=== PATIENT | female | born 1965 | race Caucasian/White ===

== ENCOUNTER 2019-12-06 18:48 | Emergency (ER) | payer MEDICARE, MEDICAID, SELFPAY ==
[2019-12-06 18:56] VITALS: BP 149/89; PULSE 75; RESP 20; TEMP 36.7; O2SAT 100
--- NOTE | 2019-12-06 18:58 | ED.URI ---
HPI - URI/Sore Throat General Chief Complaint: Upper Respiratory Infection Stated Complaint: burning on tongue/throat Time Seen by Provider: 12/06/19 18:58 Source: patient and RN notes reviewed History of Present Illness HPI Narrative: Patient is a 54-year-old female who presents the urgent care with complaints of oral thrush. Patient states that the white patches on the tip of the tongue started approximately 2 days ago. Patient states that she has had issues with thrush for several months with her inhaled steroids. Patient states that she tries to switch out her toothbrush as well as wipe her mouth out after the use, but it does not seem to help. Patient also states that she does take a probiotic. Reports of being treated approximately 3 weeks ago with the oral pills, which seems to not help as well . Patient currently denies any difficulty swallowing. No other acute complaints. No acute distress noted. Patient read the plan of care. Related Data Home Medications Medication Instructions Recorded Confirmed atorvastatin 40 mg PO DAILY 12/06/19 12/06/19 carvedilol 12.5 mg PO DAILY 12/06/19 12/06/19 clonidine HCl 0.2 mg PO DAILY 12/06/19 12/06/19 cyclobenzaprine 10 mg PO DIRECTED 12/06/19 12/06/19 duloxetine 30 mg PO DAILY 12/06/19 12/06/19 duloxetine 60 mg PO DAILY 12/06/19 12/06/19 levothyroxine 150 mcg PO DAILY 12/06/19 12/06/19 lisinopril 5 mg PO DAILY 12/06/19 12/06/19 meloxicam 15 mg PO DAILY 12/06/19 12/06/19 mirabegron [Myrbetriq] 25 mg PO DAILY 12/06/19 12/06/19 omeprazole 20 mg PO DAILY 12/06/19 12/06/19 oxybutynin chloride 5 mg PO DAILY 12/06/19 12/06/19 spironolactone 25 mg PO DAILY 12/06/19 12/06/19 zolpidem 5 mg PO DAILY 12/06/19 12/06/19 Allergies Allergy/AdvReac Type Severity Reaction Status Date / Time adhesive Allergy Unknown BLISTERS Verified 12/06/19 18:52 Review of Systems Review of Systems: Narrative: CONSTITUTIONAL: Denies fever, chills, or sweats. EYES: Denies visual changes, redness, or discharge. ENT: Reports of sore tongue and sore throat with white patches CARDIOVASCULAR: Denies chest pain, palpitations, or edema. RESPIRATORY: Denies cough or dyspnea. GASTROINTESTINAL: Denies abdominal pain, nausea, vomiting, or diarrhea. GENITOURINARY: Denies dysuria or hematuria. SKIN: Denies rash or itching. MUSCULOSKELETAL: Denies back pain, joint pain, or myalgia. NEUROLOGIC: Denies headache, numbness, or weakness. All other systems reviewed are negative, except as documented in HPI. PMFSH Comments At the time of my signature, I reviewed and agree with the nursing past medical, surgical, social, and family history. There is no relevant family history pertinent to the patient complaint. Exam Narrative: Exam Narrative: GENERAL: This is a well-nourished, well-developed patient, in no apparent distress. HEAD: normocephalic, atraumatic. EYES: PERRL. Sclera clear/white. Vision is grossly intact. EARS: External ears normal NOSE: External nose normal with no obvious nasal discharge, nares without redness, no rhinorrhea. THROAT: Mucous membranes moist, notable white thrush noted to the tip, coating the cracked tongue as well as to the buccal aspects and inner lips NECK: Neck supple, non-tender without lymphadenopathy, masses or thyromegaly. SKIN: warm, intact with no suspicious lesions or rash, good texture and turgor. NEURO: awake, alert, and oriented to person, place and time. There were no obvious focal neurologic abnormalities. EXTREMITIES: No clubbing, cyanosis, or edema. Course Vital Signs Vital signs: Vital Signs Temperature 98.0 F 12/06/19 18:56 Pulse Rate 75 12/06/19 18:56 Respiratory Rate 20 12/06/19 18:56 Blood Pressure 149/89 H 12/06/19 18:56 Pulse Oximetry 100 12/06/19 18:56 Temperature 98.0 F 12/06/19 18:56 Pulse Rate 75 12/06/19 18:56 Respiratory Rate 20 12/06/19 18:56 Blood Pressure 149/89 H 12/06/19 18:56 Pulse Oximetry 100 12/06/19 18:56 Reviewed?p
== END 2019-12-06 19:15 | disposition home or self-care (01) ==
PROVIDERS: Emergency Provider Nurse Practitioner Family; PCP Physician Assistant
DX: B37.0 Candidal stomatitis (principal); E78.00 Pure hypercholesterolemia, unspecified; I10 Essential (primary) hypertension; J44.9 Chronic obstructive pulmonary disease, unspecified; Z87.891 Personal history of nicotine dependence; E03.9 Hypothyroidism, unspecified
CPT/HCPCS: 99213; G0463

== ENCOUNTER 2020-10-04 10:40 | Outpatient (CLI) | payer MEDICARE, MEDICAID, SELFPAY ==
--- NOTE | ~2020-10-04 | XR_ITS ---
XR lumbar spine 2-3V DATE: 10/04/2020 11:01 INDICATION: Bilateral sciatica, worse on the left TECHNIQUE: AP, lateral, coned lateral lumbosacral views COMPARISON: 11/25/2014 lumbar spine FINDINGS: There is mild levoscoliosis of the lumbar spine. Diffuse osteopenia. There is severe degenerative disc disease and mild grade 1 anterolisthesis at L4-5 due to degenerativ e change at the apophyseal joints. There is moderate degenerative disc disease at L5-S1 with mild retrolisthesis. No fracture or bone destruction is detected. The lumbar pedicles are intact. The sacroiliac joints appear normal. Surgical clips overlie right lower quadrant. IMPRESSION: Mild levoscoliosis Diffuse osteopenia Severe degenerative disc disease at L4-5 Degenerative changes of apophyseal joints with minimal grade 1 anterolisthesis at L4-5 Moderate degenerative disease at L5-S1 with mild retrolisthesis Reviewed, dictated and finalized at location B.
== END 2020-10-04 10:41 | disposition home or self-care (01) ==
PROVIDERS: PCP Physician Assistant; Visit Provider Physician Assistant
DX: M54.31 Sciatica, right side (principal); M47.817 Spondylosis without myelopathy or radiculopathy, lumbosacral region; M85.88 Other specified disorders of bone density and structure, other site; M41.9 Scoliosis, unspecified
CPT/HCPCS: 72100

== ENCOUNTER 2021-06-14 06:52 | Emergency (ER) | payer MEDICARE, MEDICAID, SELFPAY ==
--- NOTE | ~2021-06-14 | US_ITS ---
EXAMINATION: US venous doppler LE RT DATE: 06/14/2021 08:02 INDICATION: Right lower limb pain and induration TECHNIQUE: Grayscale ultrasound images without and with compression and Doppler ultrasound images of the right lower extremity veins were obtained. COMPARISON: None. FINDINGS: The visualized portions of right common femoral vein, profunda (deep) femoral vein, femoral vein, pop liteal vein, peroneal trunk, posterior tibial veins, peroneal veins, gastrocnemius vein and greater s aphenous vein outflow are patent. IMPRESSION: 1. No deep venous thrombosis in the right lower limb. Reviewed, dictated and finalized at location A. NESS SUPPORT LIAISON
[2021-06-14 07:00] VITALS: BP 149/89; PULSE 68; RESP 16; TEMP 36.2; O2SAT 99
--- NOTE | 2021-06-14 07:08 | ED.EXTPRO ---
HPI - Extremity Problem General Chief complaint: Extremity Problem,Nontraumatic Stated complaint: R. leg swelling. Time Seen by Provider: 06/14/21 07:06 Source: patient Mode of arrival: ambulatory Limitations: no limitations History of Present Illness HPI Narrative: The patient is a 56-year-old female with a history of psoriasis presenting for evaluation of right leg pain. Patient reports worsening right lower extremity pain, swelling, redness over the past 48 hours. Patient reports swelling has been present for approximately 4 days. Initially began as a small knot in her right calf. Patient denies any weakness or numbness. She does report pain with movement but has been ambulatory. She denies history of coagulopathy. Patient did have a recent outpatient surgery on her left lower extremity to remove some varicose veins at an outpatient surgery center in [place], [place]. Most of her patient's specialists are in that area. Patient denies fever, chills, chest pain, shortness of breath. No recent travel. No known history of Covid. Patient has been vaccinated with booster. Pt denies any recent falls or injuries. No known sores. Pt does have a history of skin infections with the psoriasis. She is only on topical therapy for her psoriasis, denies any immune-modulators. Related Data Home Medications Medication Instructions Recorded Confirmed atorvastatin 40 mg PO DAILY 12/06/19 12/06/19 carvedilol 12.5 mg PO DAILY 12/06/19 12/06/19 clonidine HCl 0.2 mg PO DAILY 12/06/19 12/06/19 cyclobenzaprine 10 mg PO DIRECTED 12/06/19 12/06/19 duloxetine 30 mg PO DAILY 12/06/19 12/06/19 duloxetine 60 mg PO DAILY 12/06/19 12/06/19 levothyroxine 150 mcg PO DAILY 12/06/19 12/06/19 lisinopril 5 mg PO DAILY 12/06/19 12/06/19 meloxicam 15 mg PO DAILY 12/06/19 12/06/19 mirabegron [Myrbetriq] 25 mg PO DAILY 12/06/19 12/06/19 omeprazole 20 mg PO DAILY 12/06/19 12/06/19 oxybutynin chloride 5 mg PO DAILY 12/06/19 12/06/19 spironolactone 25 mg PO DAILY 12/06/19 12/06/19 zolpidem 5 mg PO DAILY 12/06/19 12/06/19 Allergies Allergy/AdvReac Type Severity Reaction Status Date / Time adhesive Allergy Unknown BLISTERS Verified 06/14/21 07:06 Review of Systems Review of Systems: CONSTITUTIONAL: Denies fever, chills, or sweats. EYES: Denies visual changes, redness, or discharge. ENT: Denies rhinorrhea, congestion, sore throat, or otalgia. CARDIOVASCULAR: Denies chest pain, reports right lower extremity edema, redness, pain RESPIRATORY: Denies cough or dyspnea. GASTROINTESTINAL: Denies abdominal pain, nausea, vomiting, or diarrhea. GENITOURINARY: Denies dysuria or hematuria. SKIN: Denies rash or itching. MUSCULOSKELETAL: Denies back pain, joint pain, or myalgia. NEUROLOGIC: Denies headache, numbness, or weakness. [facility] Social History Social History (Updated 06/14/21 @ 07:37 by Leyda Motley MD) Smoking status: Current every day smoker Tobacco type: cigarettes Alcohol intake: never Substance use: never Other substance usage details: Pt denies but states she is on saboxone Gender identity (if verbalized by the patient): Female Exam Narrative: GENERAL: Awake, alert, conversant HEAD: Normocephalic, atraumatic. EYES: PERRLA and EOMI. ENT: Nares clear, no rhinorrhea or epistaxis. Mucous membranes moist. NECK: Supple. CHEST: No respiratory distress, breathing even and non labored HEART: Regular rate, sinus rhythm ABDOMEN:Non distended, non tender EXTREMITIES: Normal range of motion. Right lower extremity redness, mild induration about the right calf. No circumferential edema. DP pulse 2+. Intact distal sensation. Full extension, flexion at the right knee, right ankle without limitation. Nonpitting edema present. Left lower extremity is normal in appearance without redness, induration. SKIN: Warm, dry, no rash. NEURO:No focal deficits. Alert and oriented x3 Course Vital Signs Vital signs: Vital Signs Temperature 36.2 C L
[2021-06-14 07:58] LABS: Basophils Percent Auto 0.3 % (0.2-1.2); Eosinophils Absolute Auto 0.2 K/mm3 (0-0.3); Eosinophils Percent Auto 3.4 % (0-4.4); Hemoglobin 11.3 g/dL (12.0-15.0); Immature Granulocyte Absolute 0.02 K/mm3 (0.00-0.031); Immature Granulocyte Percent A 0.3 % (0-0.5); Lymphocytes Absolute Auto 1.93 K/mm3 (0.9-3.2); Mean Corpuscular HGB Conc 31.4 g/dl (32-36); Mean Corpuscular Hemoglobin 29.7 pg (26-34); Mean Corpuscular Volume 94.5 fl (80-100); Mean Platelet Volume 9.7 fl (7.4-10.4); Monocytes Absolute Auto 0.5 K/mm3 (0.1-0.6); Monocytes Percent Auto 7.8 % (2.6-8.5); Neutrophils Absolute Auto 3.7 K/mm3 (1.3-6.7); Neutrophils Percent Auto 58.2 % (45.5-73.1); Platelet Count Result 220 k/mm3 (150-375); Red Blood Count 3.81 M/mm3 (4.2-5.4); Red Cell Distribution Width 14.7 % (11.5-14.5); White Blood Count 6.4 K/mm3 (4.5-10.0)
[2021-06-14 08:06] LABS: Anion Gap 10 mmol/L (8-16); Blood Urea Nitrogen 14 mg/dL (7-17); Calcium 8.8 mg/dL (8.4-10.2); Carbon Dioxide 31 mmol/L (22-30); Chloride 101 mmol/L (98-107); Estimated CRCL calculation 72 ml/min; Estimated Glomerular Filt Rate > 60; Glucose 98 mg/dL (65-110); Potassium 3.3 mmol/L (3.4-5.0); Sodium 142 mmol/L (137-145)
== END 2021-06-14 08:20 | disposition home or self-care (01) ==
PROVIDERS: Emergency Provider Emergency Medicine; PCP Physician Assistant
DX: L03.115 Cellulitis of right lower limb (principal); L40.9 Psoriasis, unspecified; F17.210 Nicotine dependence, cigarettes, uncomplicated
CPT/HCPCS: 36415; 80048; 85025; 85610; 85730; 93971; 99284

== ENCOUNTER 2022-05-21 12:59 | Outpatient (CLI) | payer MEDICARE, MEDICAID, SELFPAY ==
--- NOTE | 2022-05-21 | ECHO_ITS ---
Patient Info Name: Roslyn Pardo Age: 57 years : 1965 Gender: Female Ht: 64 in Wt: 225 lbs BSA: 2.20 m2 HR: 79 bpm BP: 209 / 89 mmHg Heart Rhythm: Sinus Rhythm Exam Date: 05/21/2022 1:52 PM Exam Location: [facility] Pul[facility] Patient Status: Outpatient Admit Date: 05/21/2022 Staff Ordering Physician: Kenyatta, Janet Maciel PA-C Machine Brusher: Rian Thurman, ZEYAD, RT Attending Provider: Kenyatta, Janet Maciel PA-C Referring Physician: Kenyatta AVINA; Exam Type: CA echo doppler color flow Study Info Indications I10 - Essential (primary) hypertension Complete two-dimensional, color flow and Doppler transthoracic echocardiogram is performed. Strain analysis performed. Summary 1. Complete two-dimensional, color flow and Doppler transthoracic echocardiogram is performed. 2. Left ventricular chamber dimension is normal. 3. Left ventricular systolic function is normal, estimated at 60-65%. 4. Right ventricular chamber dimension is normal. 5. Left atrial chamber dimension is moderately enlarged. 6. There is mild mitral valve regurgitation. 7. Sinus rhythm with frequent PVCs during this exam. Left Ventricle Left ventricular chamber dimension is normal. Left ventricular systolic function is normal, estimated at 60-65%. The left ventricular diastolic function is grade I diastolic dysfunction. Right Ventricle Right ventricular chamber dimension is normal. Left Atria Left atrial chamber dimension is moderately enlarged. Right Atria Right atrial chamber dimension is normal. Aortic Valve The aortic valve is normal. Pulmonic Valve The pulmonic valve is not well visualized. Mitral Valve The mitral valve has normal leaflets. There is mild mitral valve regurgitation. Tricuspid Valve The tricuspid valve leaflets are normal. Pericardium/Pleural The pericardium appears normal. Aorta The aortic root size at the sinus of Valsalva is normal. Left Ventricular Outflow Tract Name Value Normal LVOT 2D LVOT Diameter 2.0 cm LVOT Doppler LVOT Peak Gradient 2 mmHg LVOT Mean Gradient 1 mmHg LVOT VTI 29 cm LVOT VTI/AV VTI Ratio 0.7 LVOT Stroke Volume 88 ml LVOT CO 1.4 l/min LVOT CI 0.6 l/min/m2 Mitral Valve Name Value Normal MV Doppler MV Peak Gradient 1 mmHg MV Mean Gradient 0 mmHg MV Decel [place] 667 cm/s2 MV PHT 49 ms MV Area (PHT) 4.5 cm2 4.0-5.0 MV Area (Cont Eq VTI) 6.7 cm2 MV Regurgitation Doppler
== END 2022-05-21 13:00 | disposition home or self-care (01) ==
LOC: ANHCARD 13:01
PROVIDERS: PCP Physician Assistant; Visit Provider Physician Assistant
DX: I49.5 Sick sinus syndrome (principal); I34.0 Nonrheumatic mitral (valve) insufficiency
CPT/HCPCS: 93306

== ENCOUNTER 2022-06-25 22:29 | Emergency (ER) | payer MEDICARE, MEDICAID, SELFPAY ==
[2022-06-25 22:27] VITALS: PULSE 103; RESP 17; TEMP 37.2; O2SAT 99
--- NOTE | 2022-06-25 22:42 | ECG_ITS ---
Measurements Intervals [place] Rate: 91 P: 56 NC: 134 QRS: 44 QRSD: 96 T: 49 QT: 393 QTc: 484 Interpretive Statements SINUS RHYTHM WITH FREQUENT VENTRICULAR PREMATURE COMPLEXES IN A BIGEMINAL PATTERN NONSPECIFIC ST & T-WAVE ABNORMALITY ABNORMAL RHYTHM ECG COMPARED TO ECG 04/02/2019 17:09:24 SINUS RHYTHM NOW PRESENT T-WAVE ABNORMALITY NOW PRESENT Electronically Signed On 06-26-2022 16:20:19 [employer]OTHERMAL HEAT PUMP MACHINIST by Indira Freeman M.D.
[2022-06-25 22:46] VITALS: BP 172/127
[2022-06-25 23:04] VITALS: BP 158/85; PULSE 88; RESP 19; O2SAT 98
[2022-06-25 23:05] LABS: Basophils Percent Auto 0.3 % (0.2-1.2); Eosinophils Absolute Auto 0.2 K/mm3 (0-0.3); Eosinophils Percent Auto 2.4 % (0-4.4); Hematocrit 39.3 % (37.0-47.0); Immature Granulocyte Absolute 0.02 K/mm3 (0.00-0.031); Immature Granulocyte Percent A 0.3 % (0-0.5); Lymphocytes Absolute Auto 2.74 K/mm3 (0.9-3.2); Lymphocytes Percent Auto 39.5 % (18.3-44.2); Mean Corpuscular HGB Conc 33.1 g/dl (32-36); Mean Corpuscular Hemoglobin 31.1 pg (26-34); Mean Platelet Volume 10.4 fl (7.4-10.4); Monocytes Absolute Auto 0.6 K/mm3 (0.1-0.6); Monocytes Percent Auto 8.1 % (2.6-8.5); Neutrophils Absolute Auto 3.4 K/mm3 (1.3-6.7); Neutrophils Percent Auto 49.4 % (45.5-73.1); Platelet Count Result 191 k/mm3 (150-375); Red Blood Count 4.18 M/mm3 (4.2-5.4); White Blood Count 6.9 K/mm3 (4.5-10.0)
[2022-06-25 23:21] LABS: Alanine Aminotransferase 19 U/L (6-35); Albumin Level 4.5 g/dL (3.5-5.1); Alkaline Phosphatase 95 U/L (38-126); Anion Gap 6 mmol/L (8-16); Aspartate Amino Transferase 28 U/L (14-36); Bilirubin,Total 0.5 mg/dL (0.2-1.3); Blood Urea Nitrogen 12 mg/dL (7-17); Calcium 9.2 mg/dL (8.4-10.2); Carbon Dioxide 37 mmol/L (22-30); Chloride 94 mmol/L (98-107); Estimated CRCL calculation 63 ml/min; Estimated Glomerular Filt Rate 57; Glucose 92 mg/dL (65-110); Potassium 2.6 mmol/L (3.4-5.0); Sodium 137 mmol/L (137-145)
[2022-06-26 00:12] VITALS: PULSE 92; RESP 14; O2SAT 96
--- NOTE | 2022-06-26 00:30 | ED.GENADULT ---
HPI - General Adult General Chief complaint: Syncope Stated complaint: SYNCOPAL EPISODE History of Present Illness HPI narrative: this is a 57-year-old female presenting ED with chief complaint of possible syncope. The patient says that this evening her son woke her up from sleep and she was confused. She then developed shortness of breath, chest tightness and urinary incontinence. Patient says there is significant anxiety during this event. She has a history of anxiety attacks in the past. She said this feels similar. Patient says that currently she feels not right. She is denying fever, chills, chest pain, difficulty breathing, abdominal pain. She has had some increased urinary urgency. Related Data Home Medications Medication Instructions Recorded Confirmed atorvastatin 40 mg tablet 40 mg PO DAILY 12/06/19 12/06/19 carvedilol 12.5 mg tablet 12.5 mg PO DAILY 12/06/19 12/06/19 clonidine HCl 0.2 mg tablet 0.2 mg PO DAILY 12/06/19 12/06/19 cyclobenzaprine 10 mg tablet 10 mg PO DIRECTED 12/06/19 12/06/19 duloxetine 30 mg capsule,delayed 30 mg PO DAILY 12/06/19 12/06/19 release duloxetine 60 mg capsule,delayed 60 mg PO DAILY 12/06/19 12/06/19 release levothyroxine 150 mcg tablet 150 mcg PO DAILY 12/06/19 12/06/19 lisinopril 5 mg tablet 5 mg PO DAILY 12/06/19 12/06/19 meloxicam 15 mg tablet 15 mg PO DAILY 12/06/19 12/06/19 mirabegron 25 mg tablet,extended 25 mg PO DAILY 12/06/19 12/06/19 release 24 hr (Myrbetriq) omeprazole 20 mg capsule,delayed 20 mg PO DAILY 12/06/19 12/06/19 release oxybutynin chloride 5 mg 5 mg PO DAILY 12/06/19 12/06/19 tablet,extended release 24 hr spironolactone 25 mg tablet 25 mg PO DAILY 12/06/19 12/06/19 zolpidem 5 mg tablet 5 mg PO DAILY 12/06/19 12/06/19 Allergies Allergy/AdvReac Type Severity Reaction Status Date / Time adhesive Allergy Unknown BLISTERS Verified 04/04/22 11:24 methotrexate Allergy Rash Verified 06/26/22 00:39 PMFSH Social History Social History (System 04/04/22 @ 11:24 by Ladi Cabrera) Smoking status: Current every day smoker Tobacco type: cigarettes Alcohol intake: never Substance use: never Other substance usage details: Pt denies but states she is on saboxone Gender identity (if verbalized by the patient): Female Course Vital Signs Vital signs: Vital Signs Temperature 98.9 F 06/25/22 22:27 Pulse Rate 103 H 06/25/22 22:27 Respiratory Rate 17 06/25/22 22:27 Pulse Oximetry 99 06/25/22 22:27 Oxygen Delivery Room Air 06/25/22 22:27 Temperature 98.9 F 06/25/22 22:27 Pulse Rate 82 06/26/22 06:00 Respiratory Rate 16 06/26/22 06:00 Blood Pressure 150/84 H 06/26/22 06:00 Pulse Oximetry 94 06/26/22 06:00 Oxygen Delivery Room Air 06/25/22 22:27 Medical Decision Making [facility] Narrative Medical decision making narrative: This is a 57-year-old female presenting to the ED after brief episode of confusion and anxiety. Lab work, EKG and chest x-ray were ordered. Patient was given Ativan for anxiety. EKG interpretation: Rhythm [sinus], Rate 82, [place] -[normal], [place] -[normal], QRS [narrow], QTC [normal], T waves -[negative for concerning inversions], ST Segments - [Negative for concerning elevations] Final interpretations: normal sinus rhythm with PVCs in a bigeminy pattern. Laboratory studies were significant for hypokalemia at 2.6. This will be repleted orally and via the IV. Additionally her magnesium will be repleted. Urinalysis was negative for infection. After potassium repletion her it this BMP was repeated her potassium is now 3.2. EKG was repeated and was unchanged. Patient was monitored in ED for 8 hours. She had no recurrence of her event. Patient feels better and would like to go home. Patient's vital signs are stable and she is well appearing. 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 This time patient will be discharged. V
[2022-06-26 00:37] VITALS: BP 165/85; PULSE 93; RESP 16; O2SAT 95
[2022-06-26 00:37] LABS: Magnesium 1.4 mg/dL (1.6-2.3)
[2022-06-26] MEDS: POTASSIUM CHLORIDE 20 MEQ TABLET 80 MEQ PO (00:38)
[2022-06-26] MEDS: LORazepam (*CRX) 0.5 MG TABLET PO (00:38)
[2022-06-26] MEDS: MAGNESIUM SULF 2 GM/WATER 50ML 2 GM/50 ML BAG IVPB (00:40)
--- NOTE | 2022-06-26 01:08 | PC.NURSE ---
Updated pts family, Adan (PH [phone]), per pt request.
[2022-06-26 01:18] LABS: Appearance Urine Clear (Clear); Bilirubin Urine Negative (Negative); Blood Urine Negative (Negative); Glucose Urine UA Negative (Negative); Ketones Urine Negative (Negative); Leukocyte Esterase Ur Negative LEU/UL (Negative); Nitrate Urine Negative (Negative); Protein Urine 1+ mg/dL (Negative); Urobilinogen Urine 0.2 mg/dL (<2.0)
[2022-06-26 01:29] LABS: Add Urine Microscopic? YES; Color Urine Light Yellow (Yellow); RBC Urine 0-2 /hpf (0-2); Squamous Epithelial Cell Urine Rare /hpf (Few); WBC Urine 0-3 /hpf
[2022-06-26] MEDS: SODIUM CHLORIDE 0.9% IV 1,000 ML 999 ML IV CONT (01:46)
[2022-06-26] MEDS: KCL 40 MEQ/WATER 100 ML 100 ML 25 ML IVPB (01:47)
[2022-06-26 02:09] VITALS: BP 169/80; PULSE 93; RESP 19; O2SAT 96
[2022-06-26 03:42] VITALS: BP 160/77; PULSE 82; RESP 13; O2SAT 94
--- NOTE | 2022-06-26 03:42 | ECG_ITS ---
Measurements Intervals [place] Rate: 82 P: -29 CT: 115 QRS: 74 QRSD: 87 T: 77 QT: 356 QTc: 417 Interpretive Statements SINUS RHYTHM WITH SHORT CT INTERVAL WITH FREQUENT VENTRICULAR PREMATURE COMPLEXES IN A BIGEMINAL PATTERN NONSPECIFIC T-WAVE ABNORMALITY ABNORMAL RHYTHM ECG COMPARED TO ECG 06/25/2022 22:50:25 NO SIGNIFICANT CHANGES Electronically Signed On 06-26-2022 16:26:48 K[employer]ITTED GOODS SHAPER by Indira Freeman M.D.
[2022-06-26 05:08] VITALS: PULSE 85; RESP 24; O2SAT 95
[2022-06-26 06:00] VITALS: BP 150/84; PULSE 82; RESP 16; O2SAT 94
[2022-06-26 06:34] LABS: Anion Gap 5 mmol/L (8-16); Blood Urea Nitrogen 11 mg/dL (7-17); Calcium 8.2 mg/dL (8.4-10.2); Carbon Dioxide 34 mmol/L (22-30); Chloride 104 mmol/L (98-107); Estimated CRCL calculation 70 ml/min; Estimated Glomerular Filt Rate > 60; Glucose 101 mg/dL (65-110); Potassium 3.2 mmol/L (3.4-5.0); Sodium 143 mmol/L (137-145)
[2022-06-26] MEDS: POTASSIUM CHLORIDE 20 MEQ TABLET 40 MEQ PO (07:03)
== END 2022-06-26 07:18 | disposition home or self-care (01) ==
PROVIDERS: Emergency Provider Emergency Medicine; PCP Physician Assistant
DX: F41.9 Anxiety disorder, unspecified (principal); E87.6 Hypokalemia; F17.210 Nicotine dependence, cigarettes, uncomplicated; R94.31 Abnormal electrocardiogram [ECG] [EKG]; I49.3 Ventricular premature depolarization
CPT/HCPCS: 36415; 80048; 80053; 81001; 83735; 85025; 93005; 96365; 96366; 96367; 99284; A9270; J3475; J3480; J7030

== ENCOUNTER 2022-06-27 10:54 | Emergency (ER) | payer MEDICARE, MEDICAID, SELFPAY ==
--- NOTE | ~2022-06-27 | XR_ITS ---
EXAMINATION: XR chest ET placement DATE: 06/27/2022 12:29 INDICATION: Endotracheal tube adjustment. TECHNIQUE: A single frontal view of the chest was obtained. COMPARISON: Chest single view at 11:07 AM, CT abdomen 04/18/2015 FINDINGS: There is an interstitial pattern in the lungs, consistent with mild pulmonary edema. No ple ural effusion or pneumothorax. Cardiomegaly is noted. The endotracheal tube tip is 3.4 cm above the c katherine. IMPRESSION: 1. Mild pulmonary edema. 2. Cardiomegaly. Reviewed, dictated and finalized at location A. ATTENDANT
--- NOTE | ~2022-06-27 | XR_ITS ---
EXAMINATION: XR chest ET placement INDICATION: Endotracheal tube placement, cardiac arrest TECHNIQUE: Portable AP chest at 1110, 1113, and 1115 hours COMPARISON: 04/02/2019 FINDINGS: Three sequential radiographs are submitted for review. Initial radiograph at 1110 hours dem onstrates the endotracheal tube in the right mainstem bronchus. Final repositioned endotracheal tube ends approximately 1.4 cm above the katey. Multiple external devices overlie the radiograph. No defi nite pleural effusion or pneumothorax. The cardiomediastinal silhouette is normal. No definite focal airspace opacities are identified. IMPRESSION: 1. Endotracheal tube approximately 1.4 cm above the katey. Reviewed, dictated and finalized at location A. REPATCHER
[2022-06-27] MEDS: EPINEPHrine INJ 1 MG/10 ML SYRINGE (10:56)
[2022-06-27 11:00] VITALS: PULSE 99
[2022-06-27] MEDS: SODIUM CHLORIDE 0.9% IV 1,000 ML 999 ML IV CONT ×2 (11:00→12:04)
[2022-06-27] MEDS: SUCCINYLCHOLINE CHLORIDE 20 MG/ML 10 ML VIAL 100 MG IV PUSH ×2 (11:00→11:13)
[2022-06-27 11:05] VITALS: PULSE 99; RESP 16
[2022-06-27] MEDS: PROPOFOL IV EMULSION 100 ML 6 MG IV CONT (11:05)
--- NOTE | 2022-06-27 11:26 | ECG_ITS ---
Measurements Intervals [place] Rate: 98 P: -52 [place]: 136 QRS: -62 QRSD: 116 T: 106 QT: 423 QTc: 541 Interpretive Statements ECTOPIC ATRIAL RHYTHM MINIMAL VOLTAGE CRITERIA FOR LVH, CONSIDER NORMAL VARIANT [MEETS CRITERIA IN ONE OF: R(aVL), S(V1), R(V5), R(V5/V6)+S(V1)] POOR R-WAVE PROGRESSION INTRAVENTRICULAR CONDUCTION DELAY INFERIOR MYOCARDIAL INFARCTION , WITH POSTERIOR EXTENSION, OF UNDETERMINED AGE MODERATE T-WAVE ABNORMALITY, CONSIDER LATERAL ISCHEMIA [-0.1+ mV T-WAVE IN I/aVL/V5/V6] COMPARED TO ECG 06/26/2022 05:56:54 ECTOPIC ATRIAL RHYTHM NOW PRESENT MYOCARDIAL INFARCT FINDING NOW PRESENTCHANGE IN AXIS NOTED; WONDER IF THERE WAS LIMB LEAD MISPLACEMENT ON THE PRIOR EKG. Electronically Signed On 06-27-2022 15:59:31 [employer] STUDIES PROFESSOR by Ketty Hawkins M.D.
--- NOTE | 2022-06-27 11:35 | PC.NURSE ---
[facility] calling back advising Arch 2 accepted, 24 ETA
[2022-06-27 11:39] LABS: Hematocrit 38.6 % (35.0-49.0); Hemoglobin 12.1 g/dL (12.0-15.0); Mean Corpuscular HGB Conc 31.3 g/dL (32.0-36.0); Mean Corpuscular Hemoglobin 30.6 pg (27.0-31.0); Mean Corpuscular Volume 97.5 fL (78.0-102.0); Mean Platelet Volume 11.3 fl (9.2-11.8); Platelet Count Result 188 K/mm3 (150-420); Red Blood Count 3.96 M/mm3 (4.20-5.40); Red Cell Distribution Width 14.9 % (11.6-14.4); White Blood Count 14.4 K/mm3 (4.8-10.8)
[2022-06-27 11:41] LABS: Base Excess ABG -11.6 mmol/L (0-2); HCO3 ABG 15.3 mmol/L (23-29); Oxygen Content ABG 19.1 %vol (16.0-22.0); Oxyhemoglobin 98.7 % (94-100); PO2 ABG 273.3 mmHg (80-90); Total Hemoglobin 13.3 g/dL (12.0-18.0); pH ABG 7.22 (7.35-7.45)
[2022-06-27 11:42] LABS: Device AMBU BAG; Modified Allen's Test Pass; Site Drawn RIGHT RADIAL
[2022-06-27 11:46] LABS: INR 1.1; Partial Thromboplastin Time 27.1 SEC (23.90-30.70)
[2022-06-27 11:53] LABS: Band Neutrophils Percent 1 % (0-6); Basophils Percent Manual 0 % (0-1); Eosinophils Absolute Manual 0.28 K/mm3 (0.02-0.5); Eosinophils Percent Manual 2 % (1-6); Lymphocytes Absolute Manual 8.06 K/mm3 (1.1-4.5); Lymphocytes Percent Manual 56 % (18-44); Monocytes Absolute Manual 0.57 K/mm3 (0.1-0.90); Monocytes Percent Manual 4 % (3-9); Neutrophils Absolute Manual 5.47 K/mm3 (1.7-7.2); Neutrophils Percent Manual 37 % (46-73); Platelet Estimate Adequate (Adequate); Total Cells Counted 100
[2022-06-27 11:58] LABS: Alanine Aminotransferase 45 U/L (14-59); Albumin Level 3.3 g/dL (3.4-5.0); Alkaline Phosphatase 145 U/L (46-116); Anion Gap 17 mmol/L (8-16); Aspartate Amino Transferase 68 U/L (15-37); Bilirubin Direct 0.3 mg/dL (0-0.2); Bilirubin,Total 0.9 mg/dL (0.00-1.00); Blood Urea Nitrogen 13 mg/dL (7-18); Calcium 8.1 mg/dL (8.5-10.1); Carbon Dioxide 20 mmol/L (21-32); Chloride 99 mmol/L (98-108); Creatine Kinase 169 U/L (26-192); Estimated Glomerular Filt Rate 34; Glucose 192 mg/dL (70-99); Magnesium 1.9 mg/dL (1.8-2.4); Osmolality Calculated 287 mOsm/kg (285-295); Potassium 3.4 mmol/L (3.5-5.1); Sodium 136 mmol/L (136-145); Total Protein 7.1 g/dL (6.4-8.2)
[2022-06-27 12:05] LABS: Lactic Acid Reflex 10.6 mmol/L (0.4-2.0)
[2022-06-27] MEDS: SODIUM BICARBONATE 8.4% 50 MEQ/50 ML SYRINGE IV PUSH ×2 (12:10)
[2022-06-27 12:17] VITALS: PULSE 78; RESP 16
--- NOTE | 2022-06-27 12:21 | ED.GENADULT ---
HPI - General Adult General Chief complaint: Seizure Stated complaint: UNKNOWN Time Seen by Provider: 06/27/22 10:56 Source: RN notes reviewed and other (pt did not speak, she almost collapsed out of the wheelchair and the ) Mode of arrival: ambulatory Limitations: no limitations History of Present Illness complaint: sudden collapse in the ED Onset (ago): minute(s) (2) Radiation: other (no pain complaint.) Associated symptoms: syncope Related Data Home Medications Medication Instructions Recorded Confirmed atorvastatin 40 mg tablet 40 mg PO DAILY 12/06/19 12/06/19 carvedilol 12.5 mg tablet 12.5 mg PO DAILY 12/06/19 12/06/19 clonidine HCl 0.2 mg tablet 0.2 mg PO DAILY 12/06/19 12/06/19 cyclobenzaprine 10 mg tablet 10 mg PO DIRECTED 12/06/19 12/06/19 duloxetine 30 mg capsule,delayed 30 mg PO DAILY 12/06/19 12/06/19 release duloxetine 60 mg capsule,delayed 60 mg PO DAILY 12/06/19 12/06/19 release levothyroxine 150 mcg tablet 150 mcg PO DAILY 12/06/19 12/06/19 lisinopril 5 mg tablet 5 mg PO DAILY 12/06/19 12/06/19 meloxicam 15 mg tablet 15 mg PO DAILY 12/06/19 12/06/19 mirabegron 25 mg tablet,extended 25 mg PO DAILY 12/06/19 12/06/19 release 24 hr (Myrbetriq) omeprazole 20 mg capsule,delayed 20 mg PO DAILY 12/06/19 12/06/19 release oxybutynin chloride 5 mg 5 mg PO DAILY 12/06/19 12/06/19 tablet,extended release 24 hr spironolactone 25 mg tablet 25 mg PO DAILY 12/06/19 12/06/19 zolpidem 5 mg tablet 5 mg PO DAILY 12/06/19 12/06/19 Allergies Allergy/AdvReac Type Severity Reaction Status Date / Time adhesive Allergy Unknown BLISTERS Verified 06/27/22 12:08 methotrexate Allergy Rash Verified 06/27/22 12:08 Review of Systems Review of Systems: ROS unobtainable: Yes unobtainable due to endotracheal tube PMFSH Past Medical History Medical History Seizures Syncope and collapse Social History Social History Smoking status: Current every day smoker Tobacco type: cigarettes Alcohol intake: never Substance use: never Other substance usage details: Pt denies but states she is on saboxone Gender identity (if verbalized by the patient): Female Exam Const: General: No well nourished Nutritional Appearance: obese Orientation/consciousness: No patient oriented x3 Other: pt collapsed and did not speak HENMT: Head: normal to inspection Ears: external ears normal, TM's normal bilaterally and EAC's normal Face/Nose/Sinus: Normal external nose present, Normal nares present, normal facial exam and sinuses nontender Face and sinus: normal facial exam and sinuses nontender Mouth: Yes Normal oral and palatal mucosa present and Yes moist mucous membranes Teeth and gingiva: dentition normal Throat: posterior oropharynx normal Eyes: Conjunctivae: conjunctivae normal Pupils: Equal, round and reactive pupils present EOM: EOMs intact bilaterally Neck: Neck: normal visual inspection, no lymphadenopathy and no meningeal signs Chest: Chest palpation & inspection: normal inspection of the chest Resp: Effort & Inspection: normal respiratory effort Auscultation: crackles, rales, rhonchi and wheezes Cardio: Rate: regular rate Rhythm: abnormal rhythm GI: GI Palp: Yes Soft to palpation and No Tenderness to palpation present (GI) Auscultation: normal bowel sounds : General: Yes bladder normal to palpation and Yes no CVA tenderness Bimanual exam- vagina & uterus: bladder normal to palpation Back/Spine/Pelvis: Back: no CVA tenderness Skin: General skin exam: normal color Rashes: no rashes Wounds: no wounds Neuro: General: moves all extremities and no meningeal signs Cranial nerves: Yes Equal, round and reactive pupils present and Yes Nystagmus not present Speech: normal speech Gait exam (Neuro): Normal gait present Other: Pt was GCS 6 Extrem: General: normal to inspection and no pedal
[2022-06-27 12:57] LABS: Reflex Lactic Acid Yes or No No Lactic Reflex
== END 2022-06-27 12:43 | disposition short-term general hospital (02) ==
PROVIDERS: Emergency Provider Emergency Medicine; PCP Physician Assistant
DX: R55 Syncope and collapse (principal); I21.4 Non-ST elevation (NSTEMI) myocardial infarction
CPT/HCPCS: 31500; 36415; 36600; 80048; 80076; 82550; 82553; 82805; 83605; 83735; 84484; 85025; 85610; 85730; 93005; 96361; 96365; 96372; 96375; 99291; J0171; J0282; J0330; J2704; J7030

== ENCOUNTER 2022-06-27 14:40 | Inpatient (IN) | payer MEDICARE, MEDICAID, SELFPAY ==
[2022-06-27] VITALS (19 sets, daily range): BP systolic 98–170; BP diastolic 66–99; PULSE 60–102; RESP 20–24; TEMP 36.8–38.3; O2SAT 92–100; BMI 46.3
--- NOTE | 2022-06-27 | ECHO_ITS ---
Patient Info Name: Roslyn Pardo Age: 57 years : 1965 Gender: Female Ht: 60 in Wt: 237 lbs BSA: 2.20 m2 HR: 70 bpm BP: 124 / 101 mmHg Heart Rhythm: Sinus Rhythm Technical Quality: Fair Exam Date: 06/27/2022 4:17 PM Exam Location: [facility] Pulmonary Exam Room: ICU5 Patient Status: Inpatient Admit Date: 06/27/2022 Staff Ordering Physician: Indira Freeman MD ([email or web address]) Membership Sales Representative: [place] RDCS Attending Provider: True Licea MD Referring Physician: Pete MYRICK; Exam Type: CA echo dop color flow w con Study Info Indications - S/P CARDIAC ARREST Complete two-dimensional, color flow and Doppler transthoracic echocardiogram is performed with contrast to opacify the left ventricle and to improve the deliniation of the left ventricle endocardial borders. Contrast/Agitated Saline Contrast/Ag. Saline: Definity Amount: 2.00 ml Administered By: [place] [facility] Existing IV Access: Yes IV Access Condition: patent with no signs of infiltration Summary 1. Mild left ventricular enlargement wall thickness. 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 Grade 3 diastolic dysfunction is present. 2. Left atrial chamber dimension is moderately enlarged. 3. There is mild mitral valve regurgitation. 4. There is mild tricuspid valve regurgitation. 5. Moderate pulmonary hypertension, estimated pulmonary arterial systolic pressure is 61 mmHg. 6. Normal sinus rhythm. Left Ventricle Left ventricular chamber dimension is mildly enlarged. Left ventricular systolic function is normal, estimated at 20-25%. There is no increased left ventricular wall thickness. Left ventricular septal wall motion is normal. The left ventricular diastolic function is grade III diastolic dysfunction. Right Ventricle Right ventricular chamber dimension is normal. Right ventricular systolic function is normal. Left Atria Left atrial chamber dimension is moderately enlarged. Right Atria Right atrial chamber dimension is normal. Aortic Valve The aortic valve is trileaflet. There is no aortic valve sclerosis. There is no aortic valve stenosis. There is no aortic valve regurgitation. Pulmonic Valve The pulmonic valve is normal. There is no pulmonic valve stenosis. There is no pulmonic regurgitation. Mitral Valve The mitral valve has normal leaflets. There is no mitral valve stenosis. There is mild mitral valve regurgitation. Tricuspid Valve The tricuspid valve leaflets are normal. There is no significant tricuspid valve stenosis. There is mild tricuspid valve regurgitation. Moderate pulmonary hypertension, estimated pulmonary arterial systolic pressure is 61 mmHg. Pericardium/Pleural The pericardium appears normal. There is no pericardial effusion. Inferior Vena Cava Normal inferior vena cava with >50% collapse upon inspiration consistent with Empty right atrial pressure, 10 mmHg. Aorta The aortic root size at the sinus of Valsalva is normal. The prox ascending aorta size is normal. Left Ventricular Outflow Tract Name Value Normal LVOT 2D LVOT Diam
--- NOTE | ~2022-06-27 | XR_ITS ---
Portable chest x-ray Comparison: 06/27/2022 at 12:33 PM Clinical History: ET tube placement Findings: Endotracheal tube and NG tube are in satisfactory positions. Suggestion of minimal interst itial edema. No pleural effusion or pneumothorax. Cardiomediastinal silhouette is stable. Bones and soft tissues are unremarkable. Impression: Support tubes, as above. Suggestion of minimal interstitial edema pattern. Reviewed, dictated and finalized at location [] AL CATEGORY MANAGER Impression: Support tubes, as above. Suggestion of minimal interstitial edema pattern.
--- NOTE | ~2022-06-27 | US_ITS ---
EXAMINATION: US thoracentesis DATE: 07/02/2022 16:07 INDICATION: pleural effusion TECHNIQUE: The procedure and its risks, benefits, and alternatives were discussed with the patient's customer relations representative. Potential risks discussed included bleeding, infection, and pneumothorax. He understo od the risks and agreed to proceed. The skin was prepped and draped in sterile fashion. 1% lidocaine was used for local anesthesia. Under ultrasound guidance, a 5 Fr catheter with trochar was advanced i nto the right pleural effusion. Fluid was aspirated. The catheter was removed, and a dressing was harry lied. There were no immediate complications. FINDINGS: Ultrasound images demonstrate a right pleural effusion and the catheter within the fluid. IMPRESSION: 1. Successful ultrasound-guided thoracentesis yielding 300 mL of clear, yellow fluid. Reviewed, dictated and finalized at location E. RER TECHNICIAN
--- NOTE | ~2022-06-27 | XR_ITS ---
EXAMINATION: XR chest 1V portable DATE: 07/06/2022 06:25 INDICATION: Respiratory failure. TECHNIQUE: A single frontal view of the chest was obtained. COMPARISON: Chest single view 07/05/2022 FINDINGS: There are airspace opacities in the lower lung zones. No pleural effusion or pneumothorax. Cardiomegaly is noted. A right internal jugular central venous catheter is seen with tip in the right atrium. IMPRESSION: 1. Airspace opacities in the lower lung zones with mild worsening on the right, consistent with atele ctasis versus pneumonia. 2. Cardiomegaly. Reviewed, dictated and finalized at location A. RT EXPORT COORDINATOR IMPRESSION: 1. Airspace opacities in the lower lung zones with mild worsening on the right, consistent with atelectasis versus pneumonia. 2. Cardiomegaly.
--- NOTE | ~2022-06-27 | XR_ITS ---
EXAMINATION: XR chest port-a-cath/central Exam Date/Time: 06/27/2022 13:45 SLING OPERATOR HISTORY: IJ Line placement Comparison: 06/27/2022 at 1:22 PM. RESULT: Lines, tubes, and devices: New right IJ central line terminating in the right atrium. Endotracheal t ube remains in stable and good position. Subdiaphragmatic NG tube. Lungs and pleura: Worsening diffuse reticular opacities. Cardiomediastinal silhouette: Stable. Other: No acute osseous or upper abdominal finding. IMPRESSION: New right IJ central line, in good position. Worsening interstitial edema. Reviewed, dictated and finalized at location K. G OPERATOR
--- NOTE | ~2022-06-27 | US_ITS ---
EXAMINATION: US renal BI DATE: 06/27/2022 17:29 INDICATION: Acute kidney injury rule out hydronephrosis TECHNIQUE: Multiple grayscale and Doppler ultrasound images of the kidneys were obtained. COMPARISON: CT abdomen 04/18/2015 FINDINGS: Exam somewhat limited by patient status and inability to roll for additional views. The right kidney measures 11.6 x 4.7 x 5.5 cm. The left kidney measures 11.6 x 5.2 x 5.7 cm. The kidneys demonstrate n ormal parenchymal echogenicity. There is no hydronephrosis. The bladder is empty. IMPRESSION: Unremarkable renal sonogram findings. No hydronephrosis. Bladder not visualized. Nephroliths seen in the prior CT are not visualized either due to interval passage/removal or technical limitations of th is exam. Reviewed, dictated and finalized at location K. INATION SIGN REPAIRER IMPRESSION: Unremarkable renal sonogram findings. No hydronephrosis. Bladder not visualized . Nephroliths seen in the prior CT are not visualized either due to interval pa ssage/removal or technical limitations of this exam.
--- NOTE | ~2022-06-27 | XR_ITS ---
Portable chest x-ray Comparison: 07/02/2022 at 5:41 AM Clinical History: Postthoracentesis Findings: Endotracheal tube, NG tube, and right-sided central venous line remain in place. Small lef t pleural effusion present. Right pleural effusion essentially completely resolved. There is mild pul monary edema and left basilar atelectatic change. No pneumothorax. Cardiomediastinal silhouette is s table. Bones and soft tissues are unremarkable. Impression: Essentially complete resolution of right pleural effusion following thoracentesis. Small left pleural effusion with mild pulmonary edema and left basilar atelectatic change. No pneumothorax. Support tubes, as above. Reviewed, dictated and finalized at location M. CLE MECHANIC Impression: Essentially complete resolution of right pleural effusion following thoracentes is. Small left pleural effusion with mild pulmonary edema and left basilar atelecta tic change. No pneumothorax. Support tubes, as above.
--- NOTE | ~2022-06-27 | XR_ITS ---
EXAMINATION: XR chest 1V portable DATE: 07/05/2022 06:30 INDICATION: Respiratory failure. TECHNIQUE: A single frontal view of the chest was obtained. COMPARISON: Chest single view 07/04/2022, chest CT 06/29/2022 FINDINGS: There are airspace opacities in the lower lung zones. No pleural effusion or pneumothorax. Cardiomegaly is noted. A right internal jugular central venous catheter is seen with tip in the right atrium. IMPRESSION: 1. Airspace opacities in the lower lung zones with improvement on the left, consistent with atelectas is versus pneumonia. 2. Cardiomegaly. Reviewed, dictated and finalized at location A. NRY CONTRACTOR ADMINISTRATOR IMPRESSION: 1. Airspace opacities in the lower lung zones with improvement on the left, con sistent with atelectasis versus pneumonia. 2. Cardiomegaly.
--- NOTE | ~2022-06-27 | XR_ITS ---
EXAMINATION: XR chest 1V portable DATE: 06/29/2022 06:29 INDICATION: Respiratory failure. TECHNIQUE: A single frontal view of the chest was obtained. COMPARISON: Chest single view 06/28/2022 FINDINGS: There are airspace opacities in the mid and lower lung zones with a basilar predominance. T here are small pleural effusions. A calcified right lung nodule is consistent with old granulomatous disease. No pneumothorax. Cardiomegaly is noted. There is widening of the superior mediastinum. The e ndotracheal tube tip is 4.2 cm above the katey. A right internal jugular central venous catheter is seen with tip in the right atrium. IMPRESSION: 1. Widening of the superior mediastinum, which may be secondary to hematoma, lymphadenopathy, or ante roposterior technique. Consider chest CT. 2. Worsened small pleural effusions. 3. Airspace opacities in the mid and lower lung zones with a basilar predominance, consistent with at electasis versus pneumonia. 4. Cardiomegaly. Reviewed, dictated and finalized at location A. RY COOK HELPER IMPRESSION: 1. Widening of the superior mediastinum, which may be secondary to hematoma, ly mphadenopathy, or anteroposterior technique. Consider chest CT. 2. Worsened small pleural effusions. 3. Airspace opacities in the mid and lower lung zones with a basilar predominan ce, consistent with atelectasis versus pneumonia. 4. Cardiomegaly.
--- NOTE | ~2022-06-27 | CT_ITS ---
CT Scan of the Chest without Contrast: Clinical Indication: Widening of the mediastinum Technique: Contiguous sections were acquired throughout the chest without intravenous contrast. Dose reduction technique was used on this scan by utilizing automated exposure control and iterative recon struction technique. The dose-length product (DLP) was 863.61 mGy-cm. Findings: Endotracheal tube and NG tube are in place. There is no evidence of any significant mediastinal, yoav r or axillary lymphadenopathy. The mediastinal soft tissues appear normal. No aortic aneurysm. No per icardial effusion. There is complete bilateral lobe consolidation with probable associated small bilateral pleural effus ions. Images through the upper abdomen reveal no abnormalities. Impression: No significant mediastinal abnormality seen. No aortic aneurysm. Complete bilateral lobe atelectasis with associated small bilateral pleural effusions. Correlate clin ically for any possibility of concomitant pneumonia. Reviewed, dictated and finalized at location [] TRONIC SPECIALIST Impression: No significant mediastinal abnormality seen. No aortic aneurysm. Complete bilateral lobe atelectasis with associated small bilateral pleural eff usions. Correlate clinically for any possibility of concomitant pneumonia.
--- NOTE | ~2022-06-27 | XR_ITS ---
EXAMINATION: XR chest 1V portable INDICATION: Respiratory failure TECHNIQUE: Portable AP chest at 0508 hours COMPARISON: 06/30/2022 FINDINGS: The endotracheal tube ends approximately 3.5 cm above the katey. The nasogastric tube is f ollowed as far as the stomach. Its tip is beyond the inferior margin of the radiograph. A right inter nal jugular central venous catheter ends with its tip in the proximal right atrium. There are moderat e size right and small left pleural effusions. No pneumothorax is identified. The cardiomediastinal s ilhouette is stable. Bibasilar airspace opacities persist without significant change. IMPRESSION: 1. Bilateral pleural effusions with slight increase on the right. 2. Bibasilar airspace opacities, likely atelectasis. Reviewed, dictated and finalized at location A. M SETTER
--- NOTE | ~2022-06-27 | XR_ITS ---
EXAMINATION: XR chest 1V portable DATE: 07/06/2022 09:24 INDICATION: Pneumonia follow-up TECHNIQUE: frontal view of the chest was obtained. COMPARISON: Chest radiograph dated 07/06/22 and 07/05/2022 FINDINGS: Mild airspace opacities in the bilateral lower lung zones with interval decrease on the right. No new airspace opacities, pleural effusion or pneumothorax. Cardiomegaly. Right internal jugular central v enous catheter with distal tip at the right atrium. IMPRESSION: 1. Mild opacities in bilateral lower lung zones with interval improvement on the right consistent wit h atelectasis versus pneumonia. 2. Cardiomegaly. Reviewed, dictated and finalized at location B. OGRAVURE PRESS OPERATOR IMPRESSION: 1. Mild opacities in bilateral lower lung zones with interval improvement on th e right consistent with atelectasis versus pneumonia. 2. Cardiomegaly.
--- NOTE | ~2022-06-27 | XR_ITS ---
EXAMINATION: XR chest 1V portable INDICATION: Respiratory failure TECHNIQUE: Portable AP chest at 0601 hours COMPARISON: 06/29/2022 FINDINGS: The endotracheal tube ends approximately 4.2 cm above the katey. The nasogastric tube is i n the stomach. A right internal jugular central venous catheter ends with its tip in the proximal rig ht atrium. There are small pleural effusions. Bibasilar airspace opacities persist but have improved. There is no pneumothorax. The cardiomediastinal silhouette is stable. IMPRESSION: 1. Improved bibasilar airspace opacities, likely atelectasis. 2. Small pleural effusions. Reviewed, dictated and finalized at location A. TEAM TRUCK DRIVER
--- NOTE | ~2022-06-27 | XR_ITS ---
EXAMINATION: XR chest 1V portable DATE: 07/07/2022 06:16 INDICATION: Respiratory failure TECHNIQUE: frontal view of the chest was obtained. COMPARISON: Chest radiograph dated 07/06/2022 FINDINGS: Right internal jugular central venous catheter with distal tip in the right atrium. Continued improve ment in mild no more streaky appearing bibasilar airspace opacities which could represent atelectasis /or resolving pneumonia. No pleural effusion or pneumothorax. Cardiomegaly. IMPRESSION: 1. Decreasing mild bibasilar opacities which could represent atelectasis or improving pneumonia. 2. Cardiomegaly. Reviewed, dictated and finalized at location A. UCTION SORTER IMPRESSION: 1. Decreasing mild bibasilar opacities which could represent atelectasis or imp roving pneumonia. 2. Cardiomegaly.
--- NOTE | ~2022-06-27 | XR_ITS ---
EXAMINATION: XR chest 1V portable DATE: 07/04/2022 05:58 INDICATION: Respiratory failure TECHNIQUE: frontal view of the chest was obtained. COMPARISON: Chest radiograph dated 07/03/22 FINDINGS: Endotracheal tube tip 4.4 cm above the katey. Nasogastric tube with proximal side-port in the body t he stomach and distal tip collimated beyond the inferior margin of the [id number]. Right internal jugular central venous catheter with distal tip in the right atrium. Increasing retrocardiac opacities in the left lower lung zone. Hazy opacity at the right lower lung z one suggesting small right pleural effusion. No pneumothorax. Cardiomegaly. IMPRESSION: 1. Increasing opacities in the left lower lung zone consistent with small left pleural effusion with associated atelectasis and/or pneumonia. 2. Likely very small right pleural effusion. 3. Cardiomegaly. Reviewed, dictated and finalized at location A. ECONOMICS EXTENSION WORKER
--- NOTE | ~2022-06-27 | CT_ITS ---
EXAMINATION: CT brain wo con DATE: 06/27/2022 15:16 INDICATION: Seizure. Pupil changes. TECHNIQUE: Computed tomography (CT) of the head was performed without intravenous contrast. The mA wa s adjusted according to patient size. Iterative reconstruction technique was employed. The dose-lengt h product was 605.33 mGy-cm. COMPARISON: None FINDINGS: There is no intracranial hemorrhage, acute infarction, or abnormal intracranial mass lesion . There are scattered areas of low attenuation in the cerebral white matter, which is within normal l imits for the patient's age. The ventricles are normal in size. The orbits are normal. There is mild mucosal thickening in the paranasal sinuses. The mastoid air cells are normal. IMPRESSION: 1. Normal aging brain. Reviewed, dictated and finalized at location A. IONING MACHINE OPERATOR IMPRESSION: 1. Normal aging brain.
--- NOTE | ~2022-06-27 | XR_ITS ---
EXAMINATION: XR chest 1V portable DATE: 07/02/2022 06:44 INDICATION: Respiratory failure. TECHNIQUE: A single frontal view of the chest was obtained. COMPARISON: Chest single view 07/01/2022, chest CT 06/29/2022 FINDINGS: There are moderate-sized pleural effusions. There are airspace opacities in the mid and low er lung zones with a basilar predominance. No pneumothorax. The heart size is normal. The endotrachea l tube tip is 3.8 cm with chronic . The nasogastric tube tip is beyond the inferior margin of the rad iograph, but at least to the stomach. A right internal jugular central venous catheter is seen with t ip in the proximal right atrium. IMPRESSION: 1. Stable moderate-sized pleural effusions. 2. Stable airspace opacities in the mid and lower lung zones with a basilar predominance, consistent with atelectasis or less likely pneumonia. Reviewed, dictated and finalized at location A. NING ENGINEER IMPRESSION: 1. Stable moderate-sized pleural effusions. 2. Stable airspace opacities in the mid and lower lung zones with a basilar pre dominance, consistent with atelectasis or less likely pneumonia.
--- NOTE | ~2022-06-27 | XR_ITS ---
EXAMINATION: XR chest 1V portable DATE: 07/03/2022 06:14 INDICATION: Respiratory failure. TECHNIQUE: A single frontal view of the chest was obtained. COMPARISON: Chest single view 07/02/2022, chest CT 06/29/2022 FINDINGS: There are small pleural effusions. There are airspace opacities in the right lower lung zon e and left mid and lower lung zones. No pneumothorax. Cardiomegaly is noted. The endotracheal tube ti p is 2.7 cm above the katey. The nasogastric tube tip is beyond the inferior margin of the radiograp h, but at least to the stomach. A right internal jugular central venous catheter is seen with tip in the right atrium. IMPRESSION: 1. Stable airspace opacities in right lower lung zone and left mid and lower lung zones, consistent w ith atelectasis or less likely pneumonia. 2. Small pleural effusions. 3. Cardiomegaly. Reviewed, dictated and finalized at location A. STRY CONSULTANT IMPRESSION: 1. Stable airspace opacities in right lower lung zone and left mid and lower dalton ng zones, consistent with atelectasis or less likely pneumonia. 2. Small pleural effusions. 3. Cardiomegaly.
--- NOTE | ~2022-06-27 | US_ITS ---
EXAMINATION: US abdomen limited DATE: 06/29/2022 08:35 INDICATION: Abnormal liver function tests. TECHNIQUE: Multiple grayscale and Doppler ultrasound images of the abdomen were obtained. COMPARISON: CT abdomen 04/18/2015 FINDINGS: The pancreas is obscured by bowel gas. The liver is normal without focal lesion. There is n ormal flow in main portal vein. The gallbladder is distended and contains sludge. No gallstones or so nographic Thurman sign. Gallbladder wall thickening is noted. There is trace pericholecystic ascites. The common duct is mildly dilated to 8 mm . IMPRESSION: 1. Distended gallbladder with gallbladder wall thickening and trace pericholecystic ascites, but with out visible gallstones or sonographic Thurman sign. These findings are indeterminate for acute cholecy stitis. If there is clinical concern for acute cholecystitis, consider hepatobiliary scintigraphy. 2. Mildly dilated common duct. Reviewed, dictated and finalized at location A. MAKER WOOD IMPRESSION: 1. Distended gallbladder with gallbladder wall thickening and trace pericholecy stic ascites, but without visible gallstones or sonographic Thurman sign. These findings are indeterminate for acute cholecystitis. If there is clinical concer n for acute cholecystitis, consider hepatobiliary scintigraphy. 2. Mildly dilated common duct.
--- NOTE | ~2022-06-27 | XR_ITS ---
EXAMINATION: XR chest 1V portable DATE: 06/28/2022 04:13 INDICATION: Cardiac arrest. TECHNIQUE: A single frontal view of the chest was obtained. COMPARISON: Chest single view 06/27/2022, CT abdomen 04/18/2015 FINDINGS: There are airspace opacities in the mid and lower lung zones, right worse than left. No ple ural effusion or pneumothorax. The heart size is normal. The endotracheal tube tip is 2.6 cm above th e katey. The nasogastric tube tip is in the stomach. A right internal jugular central venous cathete r is seen with tip in the right atrium. Calcified hilar and mediastinal lymph nodes are consistent wi th old granulomatous disease. IMPRESSION: 1. Worsened airspace opacities in the mid and lower lung zones, right worse than left, consistent wit h atelectasis versus pneumonia versus pulmonary edema. Reviewed, dictated and finalized at location A. CAREGIVER IMPRESSION: 1. Worsened airspace opacities in the mid and lower lung zones, right worse bud n left, consistent with atelectasis versus pneumonia versus pulmonary edema.
--- NOTE | 2022-06-27 13:17 | ECG_ITS ---
Measurements Intervals [place] Rate: 77 P: 19 OR: 158 QRS: -53 QRSD: 115 T: 119 QT: 376 QTc: 428 Interpretive Statements SINUS RHYTHM WITH OCCASIONAL VENTRICULAR PREMATURE COMPLEXES PATTERN CONSISTENT WITH PULMONARY DISEASE INFERIOR MYOCARDIAL INFARCTION [40+ ms Q WAVE AND/OR ST/T ABNORMALITY IN II/aVF], PROBABLY OLD MODERATE T-WAVE ABNORMALITY, CONSIDER LATERAL ISCHEMIA [-0.1+ mV T WAVE IN I/aVL/V5/V6] WARNING: DATA QUALITY MAY AFFECT INTERPRETATION COMPARED TO ECG 06/27/2022 11:10:24 SINUS RHYTHM NOW PRESENT Electronically Signed On 06-28-2022 11:36:42 SERVICE DELIVERY DIRECTOR by Ketty Hawkins M.D.
[2022-06-27 14:05] LABS: Basophils Percent Auto 0.2 % (0.2-1.2); Eosinophils Absolute Auto 0.1 K/mm3 (0-0.3); Eosinophils Percent Auto 0.7 % (0-4.4); Hematocrit 36.7 % (37.0-47.0); Hemoglobin 11.8 g/dL (12.0-15.0); Immature Granulocyte Absolute 0.29 K/mm3 (0.00-0.031); Immature Granulocyte Percent A 1.7 % (0-0.5); Lymphocytes Absolute Auto 2.98 K/mm3 (0.9-3.2); Lymphocytes Percent Auto 17.9 % (18.3-44.2); Mean Corpuscular HGB Conc 32.2 g/dl (32-36); Mean Corpuscular Hemoglobin 31.2 pg (26-34); Mean Corpuscular Volume 97.1 fl (80-100); Mean Platelet Volume 10.7 fl (7.4-10.4); Monocytes Absolute Auto 0.7 K/mm3 (0.1-0.6); Monocytes Percent Auto 4.2 % (2.6-8.5); Neutrophils Absolute Auto 12.5 K/mm3 (1.3-6.7); Neutrophils Percent Auto 75.3 % (45.5-73.1); Platelet Count Result 187 k/mm3 (150-375); Red Blood Count 3.78 M/mm3 (4.2-5.4); White Blood Count 16.7 K/mm3 (4.5-10.0)
[2022-06-27] MEDS: levETIRAcetam 1000MG/NACL100ML 1,000 MG/100 ML BAG 400 MG IVPB (14:15)
[2022-06-27] MEDS: LORazepam INJ (*CRX) 2 MG/ML VIAL IV PUSH (14:15)
[2022-06-27 14:16] LABS: Ammonia 11 umol/L (9-30)
[2022-06-27 14:17] LABS: Alanine Aminotransferase 45 U/L (6-35); Albumin Level 3.3 g/dL (3.5-5.1); Alkaline Phosphatase 150 U/L (38-126); Anion Gap 12 mmol/L (8-16); Aspartate Amino Transferase 115 U/L (14-36); Bilirubin,Total 1.2 mg/dL (0.2-1.3); Blood Urea Nitrogen 13 mg/dL (7-17); Calcium 7.1 mg/dL (8.4-10.2); Carbon Dioxide 23 mmol/L (22-30); Chloride 97 mmol/L (98-107); Estimated Glomerular Filt Rate 42; Glucose 337 mg/dL (65-110); Potassium 3.3 mmol/L (3.4-5.0); Sodium 132 mmol/L (137-145)
[2022-06-27 14:18] LABS: Magnesium 2.3 mg/dL (1.6-2.3); Phosphorus 4.9 mg/dL (2.5-4.5)
[2022-06-27 14:20] LABS: INR 1.4; Prothrombin Time 16.3 Seconds (11.1-14.7)
[2022-06-27] MEDS: NOREPINEPHRINE 8 MG/D5W 250 ML 8 MG/250 ML BAG 37.5 MG IV CONT (14:20)
[2022-06-27] MEDS: SODIUM CHLORIDE 0.9% IV 1,000 ML 999 ML IV CONT (14:20)
[2022-06-27 14:21] LABS: Partial Thromboplastin Time 29.5 SECONDS (22.3-36.8)
[2022-06-27 14:23] LABS: Alveolar/Arterial O2 Gradient 604.1 mmHg; Base Excess ABG -8.3 mEq/l (+/-2.0); Fractional Inspired Oxygen 100 %; HCO3 ABG 17.7 mEq/l (22.0-26.0); Oxygen Content ABG 16.4 %vol (16.0-22.0); Oxygen Saturation ABG 92.5 % (95.0-100.0); Oxyhemoglobin 89.8 % THb (90.0-100.0); PCO2 ABG 37.9 mmHg (35.0-45.0); PO2 FiO2 Ratio Arterial Blood 0.71 %
[2022-06-27 14:24] LABS: Device VENTILATOR; Modified Allen's Test Pass; Site Drawn RIGHT RADIAL; pH ABG 7.286 (7.350-7.450)
[2022-06-27 14:25] LABS: Arterial Blood Gas PEEP 10 cmH2O; Arterial Blood Gas Tidal Volume 400 ml; Arterial Blood Gas Vent Mode CMV; Arterial Blood Gas Ventilator rate 24 /MIN
[2022-06-27 14:29] LABS: Lactic Acid Reflex 6.4 mmol/L (0.7-2.0)
--- NOTE | 2022-06-27 14:32 | PM.CNCAR ---
Assessment and Plan Assessment and plan (1) Cardiac arrest: Code(s): I46.9 - Cardiac arrest, cause unspecified Status: Acute (2) Non-ST elevated myocardial infarction (non-STEMI): Code(s): I21.4 - Non-ST elevation (NSTEMI) myocardial infarction Status: Acute (3) Seizures: Code(s): R56.9 - Unspecified convulsions Status: Acute (4) Hypertension: Code(s): I10 - Essential (primary) hypertension Status: Acute (5) Hyperlipidemia: Code(s): E78.5 - Hyperlipidemia, unspecified Status: Acute Plan At this time, EKGs do not show a STEMI. Would not emergently/urgently cath the patient at this time. Will obtain TTE. Given elevated troponins, start Heparin drip. If patient has NG/OT tube, then would also start ASA. Trend troponins. If patient has any more VT, then would start Amiodarone drip. At some point when patient recovers from this, she will likely need ischemic evaluation. Will continue to follow along. History of Present Illness History of Present Illness Consult date/time: 06/27/22 14:32 Requesting physician: Alexa Pearce MD Consult reason: Other (Cardiac Arrest) Reason For Visit: resp failure,seizure activity,brief cardiac arrest Narrative: This is a 57-year-old female with a history of hypertension, hyperlipidemia, hypothyroidism, history of osteomyelitis of left big toe, history of opioid dependence on methadone (unclear if patient still taking methadone), history of chronic hepatitis C, varicose veins who initially presented to [facility] after seizure-like activity. At some point during her visit, she had respiratory distress and required intubation, unclear if she actually lost a pulse or not. I was initially contacted by [place] [facility] physician to discuss EKG in concern for possible ST elevations, however, there was no evidence of STEMI on EKG. Patient was being transported by [facility] when they noted VT, and they had shocked her x 1. Apparently had developed bradycardia down to the 30s. Was placed on Epinephrine drip and was being transcutaneously paced. On arrival to our ICU, she was intubated. Stable hemodynamics on Epinephrine drip. Pacing stopped. Shortly thereafter, patient had 2 brief seizure episodes witnessed by our ICU team. Initial labs significant for WBC 16, pH of 7.286, pO2 71, HCO3 17.7, K of 3.3. Lactic acid from [facility] is 10.6, here at 6.4. Liver enzymes are mildly elevated. HS-Troponin from [place] 228 (0-60 reference range). Troponin here at 0.508. EKG from today looks like LBBB morphology, which is new from her EKG 06/26 which showed sinus rhythm with PVCs in a bigeminy pattern. Review of Systems Review of Systems: ROS unobtainable: Yes unobtainable due to endotracheal tube, unobtainable due to medical condition and unobtainable due to mental status PMFSH Past Medical History Medical History Seizures Syncope and collapse Social History Social History Smoking status: Current every day smoker Tobacco type: cigarettes Alcohol intake: never Substance use: never Other substance usage details: Pt denies but states she is on saboxone Gender identity (if verbalized by the patient): Female Meds Home Medications and Allergies Home Medications Medication Instructions Recorded Confirmed Type atorvastatin 40 mg tablet 40 mg PO DAILY 12/06/19 12/06/19 History carvedilol 12.5 mg tablet 12.5 mg PO DAILY 12/06/19 12/06/19 History clonidine HCl 0.2 mg tablet 0.2 mg PO DAILY 12/06/19 12/06/19 History cyclobenzaprine 10 mg tablet 10 mg PO DIRECTED 12/06/19 12/06/19 History duloxetine 30 mg capsule,delayed 30 mg PO DAILY 12/06/19 12/06/19 History release duloxetine 60 mg capsule,delayed 60 mg PO DAILY 12/06/19 12/06/19 History release levothyroxine 150 mcg tablet 150 mcg PO DAILY 12/06/19 12/06/19 Histor
[2022-06-27 14:37] LABS: Troponin I 0.508 ng/mL (0.000-0.034)
[2022-06-27 14:50] LABS: Procalcitonin 0.1 ng/mL
--- NOTE | 2022-06-27 14:58 | PM.IMHP ---
H&P: HPI History of Present Illness Date/Time: 06/27/22 14:58 Chief Complaint: Cardiac arrest with acute respiratory failure, possible seizure and acute kidney injury. Narrative: The patient was a direct admit from [facility] to the ICU here at [place]. The patient was seen in [place] ER yesterday for possible syncopal episode. The patient woke up yesterday from her sleep and was confused she also had shortness of breath chest tightness and urinary incontinence. The patient also reported that she has anxiety attacks. Her potassium was found to be low. The patient felt better and went home. She was to follow photocopier technician outpatient beatty. Today the patient went to [facility] ER and was not speaking. She almost collapsed out of the wheelchair. Information obtained from records. According to intensive is records at [place] Roslyn Pardo is a 57 year old female past medical history of hypertension, hyperlipidemia, hypothyroidism, psoriasis on methotrexate and Humira injectables per family, she has a long history of methadone use, history of hepatitis-C which she has been treated for per family, stripping of the varicose veins recently [place] [facility] after having a seizure when she was going to a doctor's office and was brought to the ER at the outside hospital.? Patient stop breathing and had a cardiac arrest/collapsed.? Patient was intubated, CPR was done with 1 round of epinephrine with [place].? Patient had another cardiac arrest, possible VFib/V-tach, EKG strips show more of a V-tach and or torsades.? Air [facility] team did CPR, and 1 round of epi with the [place], started on epinephrine infusion along with dobutamine infusion as patient was bradycardic.? She was also being paced with transcutaneous pacer pads.? Patient was transfer the ICU at [facility]. I examined the patient upon arrival to the ICU, patient was being externally paced, pacing was discontinued and patient had an underlying rhythm, dobutamine also was discontinued.? Patient was a on epinephrine infusion at 30 mcg/kg per minute.? I inserted a right IJ central line as patient? had a functional IO in her right shoulder.? Ventilator changes were made and an art line was inserted in the left femoral artery. I discussed with patient's stepmother, and 2 children will give me an adequate history as above, patient continues to vape, she does not drink alcohol or takes any illicit drugs at this time.? She is on methotrexate, Humira injections, methadone which she has been taking for a long time, she also takes duloxetine, she does have a history of essential hypertension for which she is on lisinopril, spironolactone and furosemide, carvedilol, clonidine.? Family also stated that patient has been having flu-like symptoms since last week and has not been feeling well, has been feeling weak in her legs. When I examine the patient myself, she was intubated and sedated. Her white count is noted to be 16.7 H&H 11.8 and 36.7. PH 7.286 PO2 71 bicarb 17.7. Sodium 132 potassium 3.3. Creatinine 1.3 glucose 337. Lactic 6.4 down from 10.6. AST 115 alkaline 45 alkaline phosphatase 150. Troponin at [place] was 228 per their standards. Repeat troponin here 0.508. Prolactin pending. A central line was placed once the patient came to [facility] ICU per the counselor aide. The patient had bilateral i/o which were subsequently removed. The patient was started on dopamine, epinephrine, and heparin drip. The patient was seen by Cardiology as well as counselor aide. The patient was admitted to inpatient status on the date of service of 06/27/2022. Review of Systems Review of Systems: Unable to answer questions she is intubated and sedated. All systems reviewed & are unremarkable except as noted in HPI and below Constitutional: Constitutional: Reports as per HPI and Reports no additional constitutional complaints Eyes: Eyes: Reports as p
--- NOTE | 2022-06-27 15:21 | WPDCNINT ---
Assessment and Plan Assessment and plan (1) Acute respiratory failure: Code(s): J96.00 - Acute respiratory failure, unspecified whether with hypoxia or hypercapnia Status: Acute Assessment and Plan: Acute respiratory failure likely related to cardiac arrest -intubated on 06/27/2022 at the outside hospital -chest x-ray and ABGs reviewed -currently on CMV mode of ventilation, peep of 10, will wean FiO2 to maintain O2 sats greater than 92% -will add bronchodilators -currently on no sedation, -if she wakes up, will start her on Precedex infusion, so that we can evaluate her mentation (2) Cardiac arrest: Code(s): I46.9 - Cardiac arrest, cause unspecified Status: Acute Assessment and Plan: Cardiac arrest of unknown etiology, EKG did not reveal ST-elevation [place], -mildly elevated 1st set of troponin, will repeat 3 hour and 6 hour troponin levels -discussed with Cardiology, will hold target temperature management at this time -will start heparin infusion for at least 48 hours for NSTEMI per cardiology -if she has any arrhythmias, will start amiodarone infusion -will need ischemic evaluation once she recovers (3) Shock: Code(s): R57.9 - Shock, unspecified Status: Acute Assessment and Plan: Patient in shock, post cardiac arrest could be related to septic versus cardiogenic -patient received 1.5 L IV fluids at the outside hospital -given admission L IV fluid bolus in the ICU here at [facility] -right IJ central line was inserted -patient started on Levophed, maintainMAP > 65 mmHg for adequate end organ perfusion -discontinue epinephrine and dobutamine infusions -lactic acid elevated but trending down, continue to trend -started on cefepime and vancomycin for pneumonia -blood/urine/sputum cultures have been obtained -will also obtain SARS-CoV-2 PCR, influenza a and B, RSV -check for urine Legionella and urine pneumococcal antigen (4) Acute renal failure: Code(s): N17.9 - Acute kidney failure, unspecified Status: Acute Assessment and Plan: Acute kidney injury, likely related to cardiac arrest, hypoxia, hypotension, shock -patient is been adequately fluid-resuscitated -at sodium bicarb infusion at 50 mL/hour -monitor urine output, renal function electrolytes -will check urine lytes CK levels, urine eosinophils -check renal ultrasound (5) Encephalopathy: Code(s): G93.40 - Encephalopathy, unspecified Status: Acute Assessment and Plan: Could be related to seizure activity, patient has a history of methadone use, could be related to hypoxia -check urine drug screen (6) Seizures: Code(s): R56.9 - Unspecified convulsions Status: Acute Assessment and Plan: Patient had seizure activity per family when they were driving to doctor's office and they brought her to the outside hospital ED -in the ICU here at [facility] patient also had a seizure activity -patient has been loaded with Keppra 1 g IV x1 and will start Keppra 500 mg IV q.12 hours -continue to monitor -seizure precautions (7) Hypertension: Code(s): I10 - Essential (primary) hypertension Status: Acute Assessment and Plan: Patient with history of essential hypertension, will hold all antihypertensives as patient is on vasopressors (8) Psoriasis: Code(s): L40.9 - Psoriasis, unspecified Status: Acute Assessment and Plan: History of psoriasis, on Humira injections and methotrexate -she is not on any steroids according the family Plan DVT prophylaxis: Heparin infusion for NSTEMI Stress ulcer prophylaxis: Protonix Nutrition: NPO for now, will start tube feeds in a.m. Code Status: Full code Critical Care Time Spent: 55 minutes Due to a high probability of clinically significant, life threatening deterioration, the patient required my highest level of preparedness to intervene emergently and I personally spent this critical
--- NOTE | 2022-06-27 16:00 | WPDPROCEDUR ---
Procedures Central Line Placement Right IJ: Central Line Date: 06/27/22 Central Line Time: 13:20 Consent: I have discussed with the patient and/or surrogate, the non-emergent placement of a central venous catheter, including its clinical necessity/indication and associated potential risks and complications. The patient and/or surrogate understand(s) and acknowledge(s) the need to proceed with central venous catheter insertion as an important element of the patient's clinical management. Time Out Performed: Yes Patient Position: supine Patient placed on monitor/pulse ox: Yes Provider Prep: mask, sterile gown, sterile gloves, Max. sterile barrier precautions, cap and hand hygiene with conventional soap/water or alcohol based hand rub Central line prep: 2% Chlorhexidine scrub Local anesthesia used: lidocaine 1% Amount of anesthesia used (ml): 3 Sterile US Technique with sterile gel/sterile probe covers: Yes Central line lumen inserted: triple [place]: 12 Length (cm): 16 Depth of Insertion (cm): 16 Post Procedure: sutured in place, good blood return, all ports aspirated, flushed, capped, transparent dressing, hemostatic product, antimicrobial product, securement product and aseptic technique maintained throughout procedure Post procedure x-ray: tip of catheter in good position Complications: none
--- NOTE | 2022-06-27 16:02 | WPDPROCEDUR ---
Procedures Arterial Line Arterial Line Date: 06/27/22 Arterial Line Time: 14:10 Discussed with the patient/family/POA, the placement of an arterial catheter, including its clinical necessity/indication and associated potential risks, benefits and alternatives.: Yes Patient/family/POA and/or understands and acknowledges the need to proceed with the arterial catheter insertion as an important element of the patient's clinical management.: Yes Time Out Performed: Yes Patient Position: trendelenburg Surgical Dressing Maker Prep: sterile gown, sterile gloves, mask and hat Site: left and femoral Site Prep: chlorhexidine and sterile drape Skin Anesthesia: 1% lidocaine Technique used: ultrasound-guided Size (Gauge): 14 Length: 12 cm Closure/Dressing: suture, transparent dressing, hemostatic product, antimicrobial product and securement product Patient tolerated procedure: well and no complications Complications: none
[2022-06-27 16:13] LABS: Basophils Percent Auto 0.2 % (0.2-1.2); Eosinophils Percent Auto 0.2 % (0-4.4); Hematocrit 39.4 % (37.0-47.0); Hemoglobin 12.7 g/dL (12.0-15.0); Immature Granulocyte Absolute 0.16 K/mm3 (0.00-0.031); Lymphocytes Absolute Auto 1.86 K/mm3 (0.9-3.2); Lymphocytes Percent Auto 11.6 % (18.3-44.2); Mean Corpuscular HGB Conc 32.2 g/dl (32-36); Mean Corpuscular Hemoglobin 31.1 pg (26-34); Mean Corpuscular Volume 96.3 fl (80-100); Mean Platelet Volume 10.7 fl (7.4-10.4); Monocytes Absolute Auto 0.7 K/mm3 (0.1-0.6); Monocytes Percent Auto 4.5 % (2.6-8.5); Neutrophils Absolute Auto 13.2 K/mm3 (1.3-6.7); Neutrophils Percent Auto 82.5 % (45.5-73.1); Platelet Count Result 197 k/mm3 (150-375); Red Blood Count 4.09 M/mm3 (4.2-5.4); Red Cell Distribution Width 15.3 % (11.5-14.5)
[2022-06-27 16:24] LABS: INR 1.3; Prothrombin Time 15.9 Seconds (11.1-14.7)
[2022-06-27 16:25] LABS: Partial Thromboplastin Time 28.7 SECONDS (22.3-36.8)
[2022-06-27 16:29] LABS: Amphetamine Screen Urine Negative (Negative); Barbiturate Screen Urine Negative (Negative); Benzodiazepines Screen Urine Positive (Negative); Cannabinoid Screen Urine Negative (Negative); Cocaine Screen Urine Negative (Negative); Methadone Screen Urine Positive (Negative); Opiate Screen Urine Negative (Negative); Phencyclidine Screen Urine Negative (Negative)
[2022-06-27] MEDS: HEPARIN SOD/D5W 100 UNITS/ML 25,000 UNITS/250 ML BAG 8 UNITS IV CONT (16:29)
[2022-06-27] MEDS: PERFLUTREN LIPID MICROSPHERES 1.5 ML VIAL DILUTED TO 10 ML TOTAL VOLUME IV PUSH (16:30)
[2022-06-27] MEDS: KCL 40 MEQ/WATER 100 ML 100 ML 25 ML IVPB (16:31)
[2022-06-27] MEDS: SODIUM BICARBONATE 8.4% 50 MEQ/50 ML SYRINGE IV PUSH (16:32)
[2022-06-27] MEDS: SODIUM BICARBONATE 8.4% 150 MEQ in WATER, STERILE FOR INJECTION 950 ML 50 MEQ IV CONT (16:33)
[2022-06-27 16:48] LABS: RSV RNA, RT-PCR Negative (Negative); SARS-CoV-2 RNA PCR Negative
[2022-06-27 17:22] LABS: Glucose Point of Care 225 mg/dl (65-105)
[2022-06-27] MEDS: INSULIN ASPART (*BKC) 100 UNITS/ML SUB-Q (17:22)
[2022-06-27 17:58] LABS: Troponin I 0.619 ng/mL (0.000-0.034)
[2022-06-27 18:29] LABS: Lactic Acid Reflex 2.4 mmol/L (0.7-2.0)
--- NOTE | 2022-06-27 18:31 | ADMGEN ---
This patient, Roslyn Pardo, was admitted to Intensive Care Unit-5. Patient/family oriented to hospital policies and general routines including ID bracelet, bed and alarms, visiting hours, pain management, procedures, bathroom and other care routines, personal items, smoking policy, room service/diet, and visiting hours. Information on how to activate the Rapid Response Team has been discussed. Patient/Family are encouraged to report perceived risks to care and to ask questions if they do not understand what they are told or what they should do.
[2022-06-27 18:32] LABS: Potassium Urine Random 23.4 meq/L; Sodium Urine Random 127 meq/L
[2022-06-27 19:06] LABS: Barbiturate Screen Urine Negative (Negative); Benzodiazepines Screen Urine Positive (Negative)
[2022-06-27 19:14] LABS: Amphetamine Screen Urine Negative (Negative); Cannabinoid Screen Urine Negative (Negative); Cocaine Screen Urine Negative (Negative); Methadone Screen Urine Positive (Negative); Opiate Screen Urine Negative (Negative); Phencyclidine Screen Urine Negative (Negative)
[2022-06-27 19:44] LABS: Eosinophil Urine None Seen % (None Seen)
[2022-06-27] MEDS: dexmedeTOMIDine 400 MCG/100 ML 400 MCG/100 ML BAG 5.38 MCG IV CONT (19:44)
[2022-06-27 19:48] LABS: Creatine Kinase 769 U/L (30-135)
[2022-06-27 20:05] LABS: Hemoglobin A1C 6.1 % (<5.7)
[2022-06-27] MEDS: levETIRAcetam 500MG/NACL 100ML 500 MG/100 ML BAG 400 MG IVPB (20:38)
[2022-06-27] MEDS: IPRATROPIUM BR 0.02% INH SOLN 0.5 MG/2.5 ML VIAL INHALATION (21:51)
[2022-06-27] MEDS: ALBUTEROL SULFATE NEB 2.5 MG/3 ML INH 5 MG INHALATION (21:51)
[2022-06-27] MEDS: dexmedeTOMIDine 400 MCG/100 ML 400 MCG/100 ML BAG 32.25 MCG IV CONT (22:24)
[2022-06-27 22:37] LABS: Partial Thromboplastin Time 91.2 SECONDS (22.3-36.8)
[2022-06-27 23:05] LABS: Troponin I 0.744 ng/mL (0.000-0.034)
[2022-06-28] VITALS (62 sets, daily range): BP systolic 75–169; BP diastolic 40–96; PULSE 64–89; RESP 24–32; TEMP 37.1–38.6; O2SAT 97–100; BMI 46.3
[2022-06-28 00:07] LABS: Glucose Point of Care 105 mg/dl (65-105)
[2022-06-28] MEDS: dexmedeTOMIDine 400 MCG/100 ML 400 MCG/100 ML BAG 32.25 MCG IV CONT (01:27)
[2022-06-28] MEDS: IPRATROPIUM BR 0.02% INH SOLN 0.5 MG/2.5 ML VIAL INHALATION ×4 (03:00→20:15)
[2022-06-28] MEDS: ALBUTEROL SULFATE NEB 2.5 MG/3 ML INH 5 MG INHALATION ×4 (03:00→20:15)
[2022-06-28] MEDS: MIDAZOLAM HCL (*CRX) 2 MG/2 ML VIAL 4 MG (03:54)
--- NOTE | 2022-06-28 03:55 | ECG_ITS ---
Measurements Intervals [place] Rate: 110 P: -5 WV: 139 QRS: -52 QRSD: 116 T: 91 QT: 326 QTc: 441 Interpretive Statements SINUS TACHYCARDIA PATTERN CONSISTENT WITH PULMONARY DISEASE INFERIOR MYOCARDIAL INFARCTION [40+ ms Q WAVE AND/OR ST/T ABNORMALITY IN II/aVF], POSSIBLY ACUTE MARKED ST ELEVATION, CONSIDER SEPTAL INJURY [MARKED ST ELEVATION W/O NORMALLY INFLECTED T WAVE IN V1/V2] MARKED ST ELEVATION, CONSIDER ANTEROLATERAL INJURY [MARKED ST ELEVATION W/O NORMALLY INFLECTED T WAVE IN V3-V6] ACUTE MD WARNING: DATA QUALITY MAY AFFECT INTERPRETATION COMPARED TO ECG 06/27/2022 13:17:09 SINUS TACHYCARDIA AND ANTERIOR ST-ELEVATION IS NOW PRESENT Electronically Signed On 06-28-2022 11:44:30 ON AIR TALENT by Ketty Hawkins M.D.
[2022-06-28 04:11] LABS: Hematocrit 45.4 % (37.0-47.0); Mean Corpuscular HGB Conc 30.8 g/dl (32-36); Mean Corpuscular Volume 100.4 fl (80-100); Mean Platelet Volume 11.4 fl (7.4-10.4); Platelet Count Result 172 k/mm3 (150-375); Red Blood Count 4.52 M/mm3 (4.2-5.4); Red Cell Distribution Width 15.2 % (11.5-14.5); White Blood Count 24.7 K/mm3 (4.5-10.0)
[2022-06-28 04:14] LABS: Influenza A QL RT-PCR Negative (Negative); Influenza B QL RT-PCR Negative (Negative)
--- NOTE | 2022-06-28 04:14 | ECG_ITS ---
Measurements Intervals [place] Rate: 99 P: -47 [place]: 136 QRS: -80 QRSD: 136 T: 98 QT: 414 QTc: 534 Interpretive Statements SINUS RHYTHM RIGHT BUNDLE BRANCH BLOCK [120+ ms QRS DURATION, UPRIGHT V1, 40+ ms S IN I/aVL/V4/V5/V6] SUSPECT RECENT ANTERIOR INFARCTION BASED ON SERIAL ECG REVIEW LEFTWARD AXIS COMPARED TO ECG 06/28/2022 03:57:27 RIGHT BUNDLE BRANCH BLOCK IS DEVELOPED AND ACUTE INJURY CURRENT IS RESOLVED Electronically Signed On 06-29-2022 16:38:12 WEAVER APPRENTICE by Chris Sanders M.D.
[2022-06-28 04:22] LABS: INR 1.7; Prothrombin Time 19.4 Seconds (11.1-14.7)
[2022-06-28 04:25] LABS: Partial Thromboplastin Time 117.2 SECONDS (22.3-36.8)
--- NOTE | 2022-06-28 04:30 | P.CODEBLUE_ITS ---
Code Blue Note Code Blue Note Time Arrived at Code Blue: 03:50 Initial Rhythm on Arrival: Torsades Airway Management: Intubated Chest Compressions: In process on arrival to bedside Result of Code Blue: Pt transferred to cath lab radiological technologist Cardiac Rhythm Post Code: Sinus rhythm Code Blue Summary: HPI Received notification of CODE BLUE at 03:45, on my arrival ACLS was in progress with initial rhythm reported as torsades status post 1 defibrillation. Per nursing report, this patient was transferred from an outside hospital after cardiac arrest with suspected drug overdose. This is reportedly the third time the patient has arrested. During routine evaluation, V. tach with a torsades pattern was seen with loss of pulse and ACLS was started. ROS Unable to obtain review of systems, patient intubated Exam GENERAL: Well-developed, well-nourished, unresponsive, ACLS in progress HEAD: Normocephalic, atraumatic. EYES: Pupils 3 mm and equal, sluggishly reactive to light ENT: Patient intubated. Mucous membranes moist. CHEST: Bag ventilations via ET tube ongoing, coarse, transmitted breath sounds bilaterally. HEART: CPR in process with strong femoral pulses. ABDOMEN: Soft, distended, unable to assess tenderness EXTREMITIES: No edema. Femoral central line in the left leg SKIN: Cool, dry, no rash. NEURO: Patient spontaneously moving all 4 limbs, she does not follow commands MDM Plan: ACLS, imaging, EKG, reassess Differential: Acute DE, Metabolic abnormality, Pneumothorax, other Course 04:00 - ACLS was continued with 2 amps of epinephrine given and 1 additional defibrillation. Fingerstick glucose was 105 as of midnight. ROSC was achieved with spontaneous movement of all 4 limbs and gagging against the ET tube. Will give 4 mg Versed for sedation. 04:09 - Initial EKG concerning for ST segment elevations in V3, V4 and V5 without reciprocal changes. Discussed findings with bellhop captain, Dr. Freeman who requests repeat EKG. Patient in the 140s over 90s by art line with a good waveform. Bedside chest x-ray shows ET tube in appropriate position without pneumothorax. O2 sats in the mid 90s on 90% FiO2. 04:16 - Repeat EKG shows right bundle branch block pattern with resolution of ST segment elevations. Again discussed findings with Dr. Freeman who will take the patient to [facility]. She requests oral aspirin and Brilinta. Discussed orders and recommendations with ICU nursing staff who have assisted in activating the [facility]. EKG 1 (03:57) Sinus tachycardia, rate 110, axis deviation, ST segment elevations in V3, V4 and V5 with T wave inversions in aVL no noted reciprocal changes. Intervals otherwise within normal limits with QTC of 441. Compared to prior EKGs, ST elevations are new. EKG 2 (04:14) Sinus rhythm, rate 99, left axis deviation, no ST segment elevations. T wave inversion in aVL and V2, right bundle branch block pattern with QTC 471. Compared to EKG obtained at 03:57, the ST segment elevations have resolved. Dispo Patient taken to cath lab radiological technologist Clinical diagnosis Cardiac arrest VFib Condition Critical
[2022-06-28] MEDS: TICAGRELOR 90 MG TABLET 180 MG PO (04:33)
[2022-06-28] MEDS: ASPIRIN 81 MG CHEWABLE TABLET 324 MG FEED TUBE (04:33)
[2022-06-28 04:34] LABS: Anisocytosis 1+ (NORMAL); Band Neutrophils Percent 4 % (0-6); Lymphocytes Absolute Manual 6.17 K/mm3 (1.1-4.5); Monocytes Absolute Manual 0.74 K/mm3 (0.1-0.90); Monocytes Percent Manual 3 % (3-9); Neutrophils Absolute Manual 17.78 K/mm3 (1.7-7.2); Neutrophils Percent Manual 68 % (46-73); Nucleated Red Blood Cells 2 %; Platelet Estimate Adequate (Adequate); Poikilocytosis 1+ (NORMAL); Smudge Cells FEW; Total Cells Counted 100
[2022-06-28 04:35] LABS: Alveolar/Arterial O2 Gradient 566.2 mmHg; Base Excess ABG -17.3 mEq/l (+/-2.0); Carboxyhemoglobin 0.8 % THb (0-2.0); Fractional Inspired Oxygen 100 %; HCO3 ABG 12.3 mEq/l (22.0-26.0); Methemoglobin ABG 0.3 %THb (0-1.5); Oxygen Content ABG 18.3 %vol (16.0-22.0); Oxygen Saturation ABG 95.3 % (95.0-100.0); Oxyhemoglobin 93.1 % THb (90.0-100.0); PCO2 ABG 42.9 mmHg (35.0-45.0); PO2 ABG 103.9 mmHg (80.0-100.0); PO2 FiO2 Ratio Arterial Blood 1.04 %; Reduced Hemoglobin 5.8 %THb (0-5.0); Total Hemoglobin 13.9 g/dL (12.0-18.0)
[2022-06-28 04:35] LABS: Schistocytes None Seen (NORMAL)
[2022-06-28] MEDS: dexmedeTOMIDine 400 MCG/100 ML 400 MCG/100 ML BAG 37.63 MCG IV CONT ×2 (04:35→07:15)
[2022-06-28 04:36] LABS: pH ABG 7.075 (7.350-7.450)
[2022-06-28 04:37] LABS: Arterial Blood Gas PEEP 10 cmH2O; Arterial Blood Gas Tidal Volume 400 ml; Arterial Blood Gas Vent Mode CMV; Arterial Blood Gas Ventilator rate 24 /MIN; Device VENTILATOR; Site Drawn ARTLINE
--- NOTE | 2022-06-28 04:43 | PC.NURSE ---
Notified pt's stepmother, Aaliyah, of pt's cardiac arrest. Pt to be taken to cathead operator. Family agreeable.
[2022-06-28] MEDS: SODIUM BICARBONATE 8.4% 50 MEQ/50 ML SYRINGE 100 MEQ IV PUSH (04:51)
[2022-06-28 05:00] LABS: Alanine Aminotransferase 211 U/L (6-35); Albumin Level 3.5 g/dL (3.5-5.1); Alkaline Phosphatase 143 U/L (38-126); Anion Gap 25 mmol/L (8-16); Aspartate Amino Transferase 416 U/L (14-36); Bilirubin,Total 1.2 mg/dL (0.2-1.3); Blood Urea Nitrogen 20 mg/dL (7-17); CRP 4.2 mg/dL (<1.0); Calcium 7.5 mg/dL (8.4-10.2); Carbon Dioxide 18 mmol/L (22-30); Chloride 104 mmol/L (98-107); Estimated CRCL calculation 29 ml/min; Estimated Glomerular Filt Rate 23; Glucose 119 mg/dL (65-110); Lactic Acid Reflex 17.6 mmol/L (0.7-2.0); Phosphorus 5.7 mg/dL (2.5-4.5); Potassium 4.2 mmol/L (3.4-5.0); Sodium 147 mmol/L (137-145)
[2022-06-28 05:01] LABS: Creatine Kinase 4351 U/L (30-135)
--- NOTE | 2022-06-28 05:01 | ED_ITS ---
HPI - CPR History of Present Illness HPI narrative: Received notification of CODE BLUE at 03:45, on my arrival ACLS was in progress with initial rhythm reported as torsades status post 1 defibrillation. Per nursing report, this patient was transferred from an outside hospital after cardiac arrest with suspected drug overdose. This is reportedly the third time the patient has arrested. During routine evaluation, V. tach with a torsades pattern was seen with loss of pulse and ACLS was started. Related Data Home Medications Medication Instructions Recorded Confirmed atorvastatin 40 mg tablet 40 mg PO DAILY 12/06/19 06/27/22 carvedilol 12.5 mg tablet 12.5 mg PO Q12H 12/06/19 06/27/22 clonidine HCl 0.2 mg tablet 0.2 mg PO DAILY 12/06/19 06/27/22 cyclobenzaprine 10 mg tablet 10 mg PO DIRECTED 12/06/19 06/27/22 duloxetine 30 mg capsule,delayed 30 mg PO DAILY 12/06/19 06/27/22 release duloxetine 60 mg capsule,delayed 60 mg PO DAILY 12/06/19 06/27/22 release levothyroxine 150 mcg tablet 150 mcg PO DAILY 12/06/19 06/27/22 lisinopril 5 mg tablet 20 mg PO DAILY 12/06/19 06/27/22 meloxicam 15 mg tablet 15 mg PO DAILY 12/06/19 06/27/22 mirabegron 25 mg tablet,extended 50 mg PO DAILY 12/06/19 06/27/22 release 24 hr (Myrbetriq) omeprazole 20 mg capsule,delayed 20 mg PO DAILY 12/06/19 06/27/22 release spironolactone 25 mg tablet 25 mg PO DAILY 12/06/19 12/06/19 zolpidem 5 mg tablet 5 mg PO DAILY PRN Insomnia 12/06/19 06/27/22 adalimumab 40 mg/0.4 mL mg subcut 06/27/22 subcutaneous pen kit (Humira(CF) Pen) albuterol sulfate 90 mcg/actuation 2 puff inhalation Q4H PRN 06/27/22 06/27/22 aerosol inhaler Shortness Of Breath furosemide 20 mg tablet 20 mg PO DAILY 06/27/22 06/27/22 Allergies Allergy/AdvReac Type Severity Reaction Status Date / Time adhesive Allergy Unknown BLISTERS Verified 06/27/22 12:08 methotrexate Allergy Rash Verified 06/27/22 12:08 Review of Systems Review of Systems: Unable to obtain review of systems, patient intubated PMFSH Past Medical History Medical History Anxiety with depression Asthma Chronic back pain Hepatitis C Hyperlipidemia Hypertension Kidney stone Meningitis Overactive bladder Rheumatoid arthritis Seizures Skull fracture Syncope and collapse Surgical History Surgical History H/O vein stripping History of appendectomy Family History Family History Father Malignant neoplasm of prostate Hypertension Renal disease Heart disease Mother Hypertension Heart disease Grandparent Cancer Hypertension Heart disease Social History Social History Social History: The patient is and disabled She is listed as a full code. Smoking packs per day: 1 Smoking cigarettes per day: 20.0 Smoking status: Former smoker Tobacco type: cigarettes and e-cigarettes/vaping Additional smoking assessment comments: stopped smoking cigarettes, now only vapes Alcohol intake: never Substance use: never Substance use type: former substance user Other substance usage
[2022-06-28] MEDS: MIDAZOLAM HCL (*CRX) 2 MG/2 ML VIAL IV PUSH ×2 (07:15→08:30)
[2022-06-28 07:18] LABS: Reflex Lactic Acid Yes or No Add Lactic
--- NOTE | 2022-06-28 07:21 | WPDCARDPROC ---
Cardiac Cath Procedure Note Date of procedure:: 06/28/22 Performing physician:: CATHETERIZATION LABORATORY REPORT Procedure Date: 06/28/2022 Graphic Production Artist: Indira Freeman M.D., [facility]? Referring Physician: Chriss Banda M.D. Anesthesia: Versed and Fentanyl were ordered and given in my presence at 05:35, procedure ended at 06:48. Supervision of nurse monitored moderate sedation with Versed and Fentanyl was provided for 73 minutes. Total of Versed 6mg were administered by the Cash Posting Representative RN Brigitte Alford. Patient was already intubated on mechanical ventilation and on Precedex drip and Fentanyl drip prior to arrival to rn lab. 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 No obstructive disease of the LCX or RCA. Right-dominant coronary artery system. Left ventricular end-diastolic pressure of 37mmHg Procedure(s): 1. Moderate sedation 2. Ultrasound-guided access of the right common femoral artery 3. Coronary angiography 4. Left heart cath 5. IABP insertion with subsequent removal 6. Angioseal closure deployment 7. Femstop placement Access Site: Right common femoral artery Brief History and Clinical Indications: Patient is a 57-year-old female with a history of hypertension, hyperlipidemia, psoriasis, opioid dependence on methadone, hypothyroidism, hepatitis C who is referred for urgent cardiac cath for VT/VF arrest with anterior ST elevations. All risks, benefits and alternatives to left heart catheterization with or without percutaneous coronary intervention was discussed at length with the patient. Risk of complications including but not limited to bleeding, infection, arrhythmia, stroke, worsening kidney function, blood loss, groin hematoma, limb loss, emergency coronary artery bypass grafting, and even were discussed with the patient and all questions were answered. The patient understood and wished to proceed. Time out called, patient name, date of , medical record number, allergies, procedure performed, identify Graphic Production Artist, patient and staff member concurred with accurate data, procedure carried on. Findings: LEFT HEART CATHETERIZATION FINDINGS: 1. Left main: The left main coronary artery is widely patent without any significant obstructive disease. 2. Left anterior descending: The proximal-mid LAD is patent and has mild diffuse disease with obstructive disease. The mid-distal portion of the LAD has the appearance of SCAD. 3. Left circumflex: The left circumflex artery and the main marginal branches have mild diffuse disease without any significant obstructive angiographic disease. 4. Right coronary artery: The RCA has mild luminal irregularities without any significant obstructive angiographic disease. The RCA is the dominant vessel. 5. Left ventricle: A. End-diastolic pressure 37mmHg. B. LV gram deferred. C. No significant gradient across aortic valve on catheter pullback. Description of Procedure: Patient transferred to rn lab room. Prepped and draped in usual sterile fashion. 2% lidocaine in right groin area. Micropuncture needle used to access right common femoral artery with Seldinger technique under fluoroscopic guidance. J wire advanced, micropuncture cannula placed. Right iliofemoral angiogram performed, access confirmed and micropuncture cannula exchanged for 6-FR sheath. 5F FL 4 diagnostic catheter crossed the aortic valve to obtain LVEDP, LV angiogram deferred. 5F FR 4 diagnostic catheter engaged the RCA. Given the takeoff of the left main, it was difficult to engage the LM with a 5F FL 4 diagnostic catheter. Unable to also engage with 5F AL1 diagnostic catheter. Attempted to engage the LM with a CLS 3.5 guide catheter, but unable to engage. We did not have supply of CLS 3.0 guide catheter. LM was finally engaged with a Q3.5 guide catheter. Angiograms of the left coronary system. While attem
[2022-06-28 07:29] LABS: Alveolar/Arterial O2 Gradient 585.2 mmHg; Base Excess ABG -3.9 mEq/l (+/-2.0); Fractional Inspired Oxygen 100 %; Oxygen Content ABG 17.9 %vol (16.0-22.0); Oxygen Saturation ABG 97.3 % (95.0-100.0); Oxyhemoglobin 95.7 % THb (90.0-100.0); PCO2 ABG 32.9 mmHg (35.0-45.0); PO2 ABG 94.9 mmHg (80.0-100.0); PO2 FiO2 Ratio Arterial Blood 0.95 %; Total Hemoglobin 13.2 g/dL (12.0-18.0); pH ABG 7.402 (7.350-7.450)
[2022-06-28 07:30] LABS: Site Drawn ARTLINE
[2022-06-28 07:31] LABS: Arterial Blood Gas Vent Mode CMV; Arterial Blood Gas Ventilator rate 24 /MIN; Device VENTILATOR
[2022-06-28 07:32] LABS: Arterial Blood Gas PEEP 10 cmH2O; Arterial Blood Gas Pressure Support 0 cmH2O; Arterial Blood Gas Tidal Volume 400 ml
--- NOTE | 2022-06-28 07:40 | ED.GENADULT ---
HPI - General Adult History of Present Illness HPI narrative: Received notification of CODE BLUE at 03:45, on my arrival ACLS was in progress with initial rhythm reported as torsades status post 1 defibrillation. Per nursing report, this patient was transferred from an outside hospital after cardiac arrest with suspected drug overdose. This is reportedly the third time the patient has arrested. During routine evaluation, V. tach with a torsades pattern was seen with loss of pulse and ACLS was started. Related Data Home Medications Medication Instructions Recorded Confirmed atorvastatin 40 mg tablet 40 mg PO DAILY 12/06/19 06/27/22 carvedilol 12.5 mg tablet 12.5 mg PO Q12H 12/06/19 06/27/22 clonidine HCl 0.2 mg tablet 0.2 mg PO DAILY 12/06/19 06/27/22 cyclobenzaprine 10 mg tablet 10 mg PO DIRECTED 12/06/19 06/27/22 duloxetine 30 mg capsule,delayed 30 mg PO DAILY 12/06/19 06/27/22 release duloxetine 60 mg capsule,delayed 60 mg PO DAILY 12/06/19 06/27/22 release levothyroxine 150 mcg tablet 150 mcg PO DAILY 12/06/19 06/27/22 lisinopril 5 mg tablet 20 mg PO DAILY 12/06/19 06/27/22 meloxicam 15 mg tablet 15 mg PO DAILY 12/06/19 06/27/22 mirabegron 25 mg tablet,extended 50 mg PO DAILY 12/06/19 06/27/22 release 24 hr (Myrbetriq) omeprazole 20 mg capsule,delayed 20 mg PO DAILY 12/06/19 06/27/22 release spironolactone 25 mg tablet 25 mg PO DAILY 12/06/19 12/06/19 zolpidem 5 mg tablet 5 mg PO DAILY PRN Insomnia 12/06/19 06/27/22 adalimumab 40 mg/0.4 mL mg subcut 06/27/22 subcutaneous pen kit (Humira(CF) Pen) albuterol sulfate 90 mcg/actuation 2 puff inhalation Q4H PRN 06/27/22 06/27/22 aerosol inhaler Shortness Of Breath furosemide 20 mg tablet 20 mg PO DAILY 06/27/22 06/27/22 Allergies Allergy/AdvReac Type Severity Reaction Status Date / Time adhesive Allergy Unknown BLISTERS Verified 06/27/22 12:08 methotrexate Allergy Rash Verified 06/27/22 12:08 Review of Systems Review of Systems: Unable to obtain review of systems, patient intubated PMFSH Past Medical History Medical History Anxiety with depression Asthma Chronic back pain Hepatitis C Hyperlipidemia Hypertension Kidney stone Meningitis Overactive bladder Rheumatoid arthritis Seizures Skull fracture Syncope and collapse Surgical History Surgical History H/O vein stripping History of appendectomy Family History Family History Father Malignant neoplasm of prostate Hypertension Renal disease Heart disease Mother Hypertension Heart disease Grandparent Cancer Hypertension Heart disease Social History Social History Social History: The patient is and disabled She is listed as a full code. Smoking packs per day: 1 Smoking cigarettes per day: 20.0 Smoking status: Former smoker Tobacco type: cigarettes and e-cigarettes/vaping Additional smoking assessment comments: stopped smoking cigarettes, now only vapes Alcohol intake: never Substance use: never Substance use type: former substance user Other substance usage details: Pt denies but states she is on saboxone Last use: 2020, takes methadone daily, OD 2018 Lack of Transportation: No Lack of Food: Never True Current Housing: I Have Housing Concerned About Future Housing: No Difficulty Paying Gas/Electric Bills: No Difficulty Paying for Meds: No Currently Unemployed: No Education: High School Diploma/GED Difficulty w/ Childcare or Family Care: No Gender identity (if verbalized by the patient): Female Spiritual care concerns: No Exam Narrative: GENERAL: Well-developed, well-nourished, unresponsive, ACLS in progress HEAD: Normocephalic, atraumatic. EYES: Pupils 3 mm and equal, sluggishly reactive t
[2022-06-28] MEDS: AMIODARONE 360 MG/D5W 200 ML 360 MG/200 ML BAG 33.33 MG IV CONT ×3 (08:30→18:28)
[2022-06-28 08:54] LABS: Lactic Acid 6.7 mmol/L (0.7-2.0)
[2022-06-28] MEDS: FENTANYL 2,500MCG/NS250ML(*CRX 2,500 MCG/250 ML BAG IV CONT (09:00)
[2022-06-28] MEDS: ALBUMIN HUMAN 25% 25 GM/100 ML 100 ML IVPB ×4 (09:08→23:42)
[2022-06-28] MEDS: NOREPINEPHRINE 8 MG/D5W 250 ML 8 MG/250 ML BAG 13.13 MG IV CONT (09:16)
[2022-06-28] MEDS: PANTOPRAZOLE SODIUM IV 40 MG VIAL IV PUSH (09:27)
[2022-06-28] MEDS: levETIRAcetam 500MG/NACL 100ML 500 MG/100 ML BAG 400 MG IVPB ×2 (09:27→20:44)
[2022-06-28] MEDS: PROPOFOL IV EMULSION 100 ML 3.23 MG IV CONT (10:20)
[2022-06-28] MEDS: DOXYCYCLINE 100 MG/NS 100 ML 100 MG/100 ML BAG IVPB ×2 (11:16→20:43)
--- NOTE | 2022-06-28 11:25 | WPDNEURCNPN ---
Assessment and Plan Assessment and plan (1) Comatose: Code(s): R40.20 - Unspecified coma Status: Acute Plan Status post cardiac pulmonary arrest with respiratory failure resultant kidney injuries and seizures being managed in the intensive care this stage her neurological status is stable but with the finding as mentioned above and EEG will be obtained at a later date Consult date: 06/28/22 HPI: Roslyn Pardo is a 57 year old female admitted to the hospital neuro consultation has been obtained with the history of cardiac arrest, acute respiratory failure acute renal failure and possible seizures. Patient was admitted as a diet transfer from [facility] to ICU here at [place] was initially seen in the ER for possible syncopal episodes she woke up yesterday from her sleep with confusion and difficulties in breathing along with the urinary incontinence at that time her potassium was low she did feel better and subsequently went home with the intention of following with a take up operator as an outpatient she went to the [facility] ER on the day of admission there and was not speaking almost collapsed out of the wheelchair. She has ongoing history of hypertension hyperlipidemia hypothyroidism psoriasis for which she is on methotrexate and Humira injections along with long history of methadone use hepatitis C for which she has been treated she has undergone stripping of the varicose veins she stopped breathing and had a cardiac arrest and collapsed intubated CPR done subsequently she had another cardiac arrest and was transferred to the [facility] ICU . As mentioned before she has an ongoing history of bronchial asthma, anxiety with depression, hepatitis-C, hypertension, neurogenic bladder, rheumatoid arthritis, in addition to the seizures also undergone cardiac catheterization with documentation of spontaneous coronary artery dissection of the mid distal left anterior descending artery and is right dominant coronary artery system also left ventricular end-diastolic pressure of 37mm Review of Systems Review of Systems: All systems reviewed & are unremarkable except as noted in HPI and below PMFSH Past Medical History Medical History Anxiety with depression Asthma Chronic back pain Hepatitis C Hyperlipidemia Hypertension Kidney stone Meningitis Overactive bladder Rheumatoid arthritis Seizures Skull fracture Syncope and collapse Surgical History Surgical History H/O vein stripping History of appendectomy Family History Family History Father Malignant neoplasm of prostate Hypertension Renal disease Heart disease Mother Hypertension Heart disease Grandparent Cancer Hypertension Heart disease Social History Social History Social History: The patient is and disabled She is listed as a full code. Smoking packs per day: 1 Smoking cigarettes per day: 20.0 Smoking status: Former smoker Tobacco type: cigarettes and e-cigarettes/vaping Additional smoking assessment comments: stopped smoking cigarettes, now only vapes Alcohol intake: never Substance use: never Substance use type: former substance user Other substance usage details: Pt denies but states she is on saboxone Last use: 2019, takes methadone daily, OD 2018 Lack of Transportation: No Lack of Food: Never True Current Housing: I Have Housing Concerned About Future Housing: No Difficulty Paying Gas/Electric Bills: No Difficulty Paying for Meds: No Currently Unemployed: No Education: High School Diploma/GED Difficulty w/ Childcare or Family Care: No Gender identity (if verbalized by the patient): Female Spiritual care concerns: No Meds Home Medications and Allergies Home Medication
[2022-06-28 11:42] LABS: Triglycerides 122 mg/dL (<150)
[2022-06-28 12:01] LABS: Glucose Point of Care 86 mg/dl (65-105)
--- NOTE | 2022-06-28 12:20 | PCFNICU ---
ICU Rounding Note: Pt current nutrition is NPO. Last recorded weight is 107.5 kg. Bowel Motility:No BM Labs Reviewed:Na 147, BUN 20, GFR 23, Cr 2.2 Meds Noted:Levophed,Fentanyl, Vancomycin, Keppra, Propofol 9.68 ml/bk=309 kcals, Protonix. Skin: WNL Additional Notes: Patient current with mechanical vent. No plans for nutrition today. Following daily in ICU rounds.
--- NOTE | 2022-06-28 12:34 | WPDINTPN ---
Progress Note: A&P Assessment and Plan (1) Acute respiratory failure: Code(s): J96.00 - Acute respiratory failure, unspecified whether with hypoxia or hypercapnia Status: Acute Assessment and Plan: Acute respiratory failure likely related to cardiac arrest -intubated on 06/27/2022 at the outside hospital -chest x-ray and ABGs reviewed -currently on CMV mode of ventilation, peep of 10, will wean FiO2 to maintain O2 sats greater than 92% -continue bronchodilators -started on fentanyl as patient has been on methadone at home, as hold propofol for sedation, maintain RASS of 0 to -2, daily sedation vacation (2) Cardiac arrest: Code(s): I46.9 - Cardiac arrest, cause unspecified Status: Acute Assessment and Plan: Cardiac arrest of unknown etiology, EKG did not reveal ST-elevation MT, -mildly elevated 1st set of troponin, will repeat 3 hour and 6 hour troponin levels -discussed with Cardiology, will hold target temperature management at this time -will start heparin infusion for at least 48 hours for NSTEMI per cardiology -if she has any arrhythmias, will start amiodarone infusion 06/28: Patient overnight had a cardiac arrest in the ICU VFib arrest status post CPR, epinephrine and defibrillation. Patient was taken to the cardiac lab intern by nephrologist, left main coronary artery was widely patent, lad proximal to mid LAD is patent and mild diffuse disease with obstructive disease admitted to distal portion of the LAD and has appearance of spontaneous coronary artery dissection (SCAD). Left circumflex has mild disease. Right coronary artery without any significant obstructive angiographic disease. Patient went to VFib arrest requiring defibrillation x6 on the cath table -discussed with cardiology at length, conservative management at this time. -continue amiodarone infusion - cardiology following 06/27: ECHO: EF of 20-25%, akinesis of distal half of the ventricle consider Takotsubo's cardiomyopathy, grade 3 diastolic dysfunction mild mitral valve regurg, mild tricuspid valve regurg, moderate pulmonary hypertension with RVSP of 61 mmHg (3) Shock: Code(s): R57.9 - Shock, unspecified Status: Acute Assessment and Plan: Patient in shock, post cardiac arrest could be related to septic versus cardiogenic -patient received 1.5 L IV fluids at the outside hospital -given admission L IV fluid bolus in the ICU here at [facility] -right IJ central line was inserted -continue Levophed, maintainMAP > 65 mmHg for adequate end organ perfusion -lactic acid elevated post code this morning, trending down, will continue to monitor -continue cefepime and vancomycin (06/27) for pneumonia. Added doxycyclin on 06/28 -blood/urine/sputum cultures have been obtained and pending - SARS-CoV-2 PCR, influenza a and B, RSV are all negative - urine Legionella and urine pneumococcal antigen obtained and pending (4) Acute renal failure: Code(s): N17.9 - Acute kidney failure, unspecified Status: Acute Assessment and Plan: Acute kidney injury, likely related to cardiac arrest, hypoxia, hypotension, shock -patient is been adequately fluid-resuscitated -discontinue bicarb infusion, -monitor urine output, renal function electrolytes -CK levels elevated, will give additional albumin for volume and re-expansion -urine lytes did not reflect prerenal picture -06/27/2022 renal ultrasound: Unremarkable renal sonogram findings, no hydronephrosis -nephrology consult (5) Encephalopathy: Code(s): G93.40 - Encephalopathy, unspecified Status: Acute Assessment and Plan: Could be related to seizure activity, patient has a history of methadone use, could be related to hypoxia -urine drug screen was positive methadone and benzodiazepines (6) Seizures: Code(s): R56.9 - Unspecified convulsions Status: Acute Assessment and Plan: Patient had seizure activity per family when they were d
[2022-06-28] MEDS: HEPARIN SODIUM 5,000 UNITS/ML VIAL 5000 UNITS SUB-Q ×2 (13:36→21:47)
--- NOTE | 2022-06-28 13:55 | PM.PNCARD ---
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 Will start ASA and Plavix. Beta-sagar will need to be started when no longer on pressors and remains hemodynamically stable. Continue with Amio drip. EF is 20-25%. Unable to start GDMT at this time. Will start GDMT when she recovers more and is no longer requiring pressors. Subjective Date/time seen: 06/28/22 13:55 Interval history: Reason for visit: Cardiac arrest HPI: This is a 57-year-old female with a history of hypertension, hyperlipidemia, hypothyroidism, history of osteomyelitis of left big toe, history of opioid dependence on methadone (unclear if patient still taking methadone), history of chronic hepatitis C, varicose veins who initially presented to [facility] after seizure-like activity. At some point during her visit, she had respiratory distress and required intubation, unclear if she actually lost a pulse or not. I was initially contacted by [place] ER physician to discuss EKG in concern for possible ST elevations, however, there was no evidence of STEMI on EKG. Patient was being transported by [facility] when they noted VT, and they had shocked her x 1. Apparently had developed bradycardia down to the 30s. Was placed on Epinephrine drip and was being transcutaneously paced. On arrival to our ICU, she was intubated. Stable hemodynamics on Epinephrine drip. Pacing stopped. Shortly thereafter, patient had 2 brief seizure episodes witnessed by our ICU team. Initial labs significant for WBC 16, pH of 7.286, pO2 71, HCO3 17.7, K of 3.3. Lactic acid from [facility] is 10.6, here at 6.4. Liver enzymes are mildly elevated. HS-Troponin from [place] 228 (0-60 reference range). Troponin here at 0.508. EKG from today looks like LBBB morphology, which is new from her EKG 06/26 which showed sinus rhythm with PVCs in a bigeminy pattern. Date of service 06/28/2022: Patient had VT/VF cardiac arrest this morning. Taken to laboratory worker urgently (see cardiac cath report for full findings/details). Received 5 shocks on laboratory worker table for VT. Cath showing SCAD of the mid-distal LAD. Elevated LVEDP of 37mmHg. Patient is currently hemodynamically stable in the ICU. Amiodarone drip started in the laboratory worker. Review of Systems Review of Systems: ROS unobtainable: Yes unobtainable due to endotracheal tube, unobtainable due to medical condition and unobtainable due to mental status Exam Const: Other: Critically ill, intubated on mechanical ventilation and on pressors. HENMT: Other: OETT in place Resp: Other: On mechanical ventilation via OETT. Decreased breath sounds at bases. Cardio: Rate: regular rate Rhythm: regular rhythm Heart sounds: no murmurs Urinary Catheter: Urinary Catheter: other (Jay in place. ) Skin: Other: Varicose veins in lower extremities noted Neuro: Other: Sedated Psych: Other: Sedated Objective Data Vital Signs Vital Signs: Vital Signs - 24 hr 06/27/22 15:00 06/27/22 16:46 06/27/22 16:00 Temperature Pulse Rate 94 Respiratory Rate Blood Pressure 147/97 H 170/99 H Pulse Oximetry 96 Oxygen Delivery Mechanical Ventilation Fraction of Inspired Oxygen 90 06/27/22 17:45 06/27/22 16:00 06/27/22 16:00 Temperature Pulse Rate Respiratory Rate Blood Pressure 136/85 Pulse Oximetry 100 Oxygen Delivery Mechanical Ventilation Fract
[2022-06-28 15:34] LABS: Lactic Acid Reflex 3.5 mmol/L (0.7-2.0)
[2022-06-28 17:52] LABS: Glucose Point of Care 153 mg/dl (65-105)
[2022-06-28] MEDS: CENTRAL LINE FLUSH 10 ML IV PUSH ×2 (17:52→21:47)
[2022-06-28] MEDS: PROPOFOL IV EMULSION 100 ML 6.45 MG IV CONT (18:29)
[2022-06-28] MEDS: PROPOFOL IV EMULSION 100 ML 16.13 MG IV CONT (20:29)
[2022-06-28] MEDS: MINERAL OIL/WHITE PETROLATUM OINTMENT 1 APPLIC EACH EYE (20:35)
[2022-06-28 23:48] LABS: Glucose Point of Care 104 mg/dl (65-105)
[2022-06-29] VITALS (87 sets, daily range): BP systolic 102–151; BP diastolic 56–79; PULSE 64–90; RESP 13–29; TEMP 37.3–38.2; O2SAT 96–100; BMI 47.9
[2022-06-29] MEDS: AMIODARONE 360 MG/D5W 200 ML 360 MG/200 ML BAG 33.33 MG IV CONT ×4 (00:16→18:06)
[2022-06-29] MEDS: ALBUTEROL SULFATE NEB 2.5 MG/3 ML INH 5 MG INHALATION ×4 (02:15→20:49)
[2022-06-29] MEDS: IPRATROPIUM BR 0.02% INH SOLN 0.5 MG/2.5 ML VIAL INHALATION ×4 (02:15→20:49)
[2022-06-29] MEDS: PROPOFOL IV EMULSION 100 ML 19.35 MG IV CONT ×5 (02:41→22:49)
[2022-06-29] MEDS: NOREPINEPHRINE 8 MG/D5W 250 ML 8 MG/250 ML BAG 15 MG IV CONT (03:09)
[2022-06-29 04:48] LABS: Basophils Percent Auto 0.3 % (0.2-1.2); Eosinophils Absolute Auto 0.2 K/mm3 (0-0.3); Eosinophils Percent Auto 1.3 % (0-4.4); Hematocrit 31.8 % (37.0-47.0); Hemoglobin 10.5 g/dL (12.0-15.0); Immature Granulocyte Absolute 0.07 K/mm3 (0.00-0.031); Immature Granulocyte Percent A 0.5 % (0-0.5); Lymphocytes Absolute Auto 2.58 K/mm3 (0.9-3.2); Lymphocytes Percent Auto 18.8 % (18.3-44.2); Mean Corpuscular Hemoglobin 31.3 pg (26-34); Mean Corpuscular Volume 94.6 fl (80-100); Mean Platelet Volume 11.7 fl (7.4-10.4); Monocytes Absolute Auto 0.7 K/mm3 (0.1-0.6); Monocytes Percent Auto 4.7 % (2.6-8.5); Neutrophils Absolute Auto 10.2 K/mm3 (1.3-6.7); Neutrophils Percent Auto 74.4 % (45.5-73.1); Platelet Count Result 144 k/mm3 (150-375); Red Blood Count 3.36 M/mm3 (4.2-5.4); Red Cell Distribution Width 15.5 % (11.5-14.5); White Blood Count 13.7 K/mm3 (4.5-10.0)
[2022-06-29 04:58] LABS: Alanine Aminotransferase 543 U/L (6-35); Albumin Level 3.8 g/dL (3.5-5.1); Alkaline Phosphatase 88 U/L (38-126); Anion Gap 9 mmol/L (8-16); Bilirubin,Total 1.1 mg/dL (0.2-1.3); Blood Urea Nitrogen 29 mg/dL (7-17); Calcium 6.8 mg/dL (8.4-10.2); Carbon Dioxide 29 mmol/L (22-30); Chloride 98 mmol/L (98-107); Estimated CRCL calculation 31 ml/min; Estimated Glomerular Filt Rate 26; Glucose 98 mg/dL (65-110); Magnesium 1.6 mg/dL (1.6-2.3); Phosphorus 2.5 mg/dL (2.5-4.5); Potassium 2.5 mmol/L (3.4-5.0); Sodium 136 mmol/L (137-145)
[2022-06-29 05:04] LABS: Aspartate Amino Transferase 911 U/L (14-36)
[2022-06-29] MEDS: ALBUMIN HUMAN 25% 25 GM/100 ML 100 ML IVPB ×2 (05:08→12:15)
[2022-06-29] MEDS: HEPARIN SODIUM 5,000 UNITS/ML VIAL 5000 UNITS SUB-Q ×3 (05:10→21:00)
[2022-06-29 05:13] LABS: Lactic Acid Reflex 1.7 mmol/L (0.7-2.0)
[2022-06-29] MEDS: CENTRAL LINE FLUSH 10 ML IV PUSH ×4 (05:30→20:24)
[2022-06-29 05:40] LABS: Glucose Point of Care 94 mg/dl (65-105)
[2022-06-29] MEDS: KCL 40 MEQ/WATER 100 ML 100 ML 25 ML IVPB ×2 (05:48→16:21)
[2022-06-29 06:14] LABS: Alveolar/Arterial O2 Gradient 297.4 mmHg; Carboxyhemoglobin 0.3 % THb (0-2.0); Fractional Inspired Oxygen 60 %; HCO3 ABG 23.1 mEq/l (22.0-26.0); Methemoglobin ABG 0.1 %THb (0-1.5); Oxygen Content ABG 14.8 %vol (16.0-22.0); Oxygen Saturation ABG 98.1 % (95.0-100.0); Oxyhemoglobin 96.2 % THb (90.0-100.0); PCO2 ABG 28.9 mmHg (35.0-45.0); PO2 ABG 98.6 mmHg (80.0-100.0); PO2 FiO2 Ratio Arterial Blood 1.64 %; Reduced Hemoglobin 3.4 %THb (0-5.0); Total Hemoglobin 10.8 g/dL (12.0-18.0)
[2022-06-29 06:16] LABS: Device VENTILATOR; Site Drawn ARTLINE; pH ABG 7.521 (7.350-7.450)
[2022-06-29 06:17] LABS: Arterial Blood Gas PEEP 10 cmH2O; Arterial Blood Gas Tidal Volume 400 ml; Arterial Blood Gas Vent Mode CMV; Arterial Blood Gas Ventilator rate 24 /MIN
[2022-06-29] MEDS: FENTANYL 2,500MCG/NS250ML(*CRX 2,500 MCG/250 ML BAG 12.5 MCG IV CONT (07:00)
[2022-06-29] MEDS: MINERAL OIL/WHITE PETROLATUM OINTMENT 1 APPLIC EACH EYE ×2 (07:30→20:24)
[2022-06-29] MEDS: MAGNESIUM SULF 2 GM/WATER 50ML 2 GM/50 ML BAG IVPB ×2 (07:51→16:22)
[2022-06-29] MEDS: POTASSIUM CHLORIDE 20 MEQ PACKET (FOR LIQUID) 40 MEQ FEED TUBE (07:51)
[2022-06-29 08:17] LABS: Hepatitis B Surface Antigen Negative (Negative)
[2022-06-29 08:22] LABS: HAV RESULT Negative (Negative); Hepatitis B Core IgM Result Negative (Negative)
[2022-06-29 08:47] LABS: Hepatitis C Virus Antibody Reactive (Negative)
[2022-06-29] MEDS: DOXYCYCLINE 100 MG/NS 100 ML 100 MG/100 ML BAG IVPB ×2 (09:08→22:06)
[2022-06-29] MEDS: levETIRAcetam 500MG/NACL 100ML 500 MG/100 ML BAG 400 MG IVPB ×2 (09:08→20:23)
[2022-06-29] MEDS: PANTOPRAZOLE SODIUM IV 40 MG VIAL IV PUSH (09:09)
[2022-06-29] MEDS: CLOPIDOGREL BISULFATE 75 MG TABLET PO (09:10)
[2022-06-29] MEDS: ASPIRIN 81 MG ENTERIC TABLET PO (09:11)
[2022-06-29] MEDS: AMIODARONE INJ 150 MG/3 ML VIAL XX (09:29)
--- NOTE | 2022-06-29 09:34 | PC.NURSE ---
27-Pt. in polymorphic v-tach. Pulse present. 28-200 joule shock delivered. 928-another 200 joule shock delivered. 29-150 mg amiodarone IVP administered.
--- NOTE | 2022-06-29 09:55 | PC.NURSE ---
0929: Patient went in to witness ventricular fibrillation and was shocked twice and a dose of Amiodarone 150 mg bolus was given. She returned to sinus rhythm with pulse after the second shock.
[2022-06-29] MEDS: CALCIUM GLUC 2,000 MG/NS 100ML 2,000 MG/100 ML BAG 100 MG IVPB (10:54)
--- NOTE | 2022-06-29 11:46 | WPDINTPN ---
Progress Note: A&P Assessment and Plan (1) Acute respiratory failure: Code(s): J96.00 - Acute respiratory failure, unspecified whether with hypoxia or hypercapnia Status: Acute Assessment and Plan: Acute respiratory failure likely related to cardiac arrest -intubated on 06/27/2022 at the outside hospital -chest x-ray and ABGs reviewed -currently on CMV mode of ventilation, peep of 10, will wean FiO2 to maintain O2 sats greater than 92% -continue bronchodilators -sedated with fentanyl as patient has been on methadone at home also started propofol for adequate sedation and ventilator synchrony. Maintain RASS of 0 to -2, daily sedation vacation (2) Cardiac arrest: Code(s): I46.9 - Cardiac arrest, cause unspecified Status: Acute Assessment and Plan: Cardiac arrest of unknown etiology, EKG did not reveal ST-elevation NE, -mildly elevated 1st set of troponin, will repeat 3 hour and 6 hour troponin levels -discussed with Cardiology, will hold target temperature management at this time -will start heparin infusion for at least 48 hours for NSTEMI per cardiology -if she has any arrhythmias, will start amiodarone infusion 06/28: Patient overnight had a cardiac arrest in the ICU VFib arrest status post CPR, epinephrine and defibrillation.? Patient was taken to the cardiac clinical laboratory assistant by authorization rep, left main coronary artery was widely patent, lad proximal to mid LAD is patent and mild diffuse disease with obstructive disease admitted to distal portion of the LAD and has appearance of spontaneous coronary artery dissection (SCAD).? Left circumflex has mild disease.? Right coronary artery without any significant obstructive angiographic disease.? Patient went to VFib arrest requiring defibrillation x6 on the cath table -discussed with cardiology at length, conservative management at this time. -continue amiodarone infusion - cardiology following 06/29/2022 patient did have a brief run of VFib of 6-8 beats which spontaneously resolved, later in the morning patient went into sustained VFib and had to be defibrillated x2, amiodarone 150 IV x1 push was given with return to sinus rhythm -continue amiodarone infusion -will keep potassium close to 4.0 and magnesium close to 2.5 06/27: ECHO:? EF of 20-25%, akinesis of distal half of the ventricle consider Takotsubo's cardiomyopathy, grade 3 diastolic dysfunction mild mitral valve regurg, mild tricuspid valve regurg, moderate pulmonary hypertension with RVSP of 61 mmHg (3) Shock: Code(s): R57.9 - Shock, unspecified Status: Acute Assessment and Plan: Patient in shock, post cardiac arrest could be related to septic versus cardiogenic -patient received 1.5 L IV fluids at the outside hospital -given admission L IV fluid bolus in the ICU here at [facility] -right IJ central line was inserted -continue Levophed, maintain MAP > 65 mmHg for adequate end organ perfusion -lactic acid has normalized -continue cefepime and vancomycin (06/27) for pneumonia.? Added doxycycline on 06/28 -06/27/2022: Blood cultures negative x2 -06/27/2022: urine cultures no growth to date -06/27/2022: sputum cultures are negative -06/28/2022: MRSA screen pending - SARS-CoV-2 PCR, influenza a and B, RSV are all negative - urine Legionella and urine pneumococcal antigen obtained and pending -LFTs trending up: Likely related to shock liver. Hepatitis panel is negative -right upper quadrant ultrasound shows distended gallbladder gallbladder wall thickening and trace pericholecystic ascites but without visible gallstones or sonographic Thurman sign, these findings are indeterminate for acute cholecystitis -will continue to monitor LFTs (4) Acute renal failure: Code(s): N17.9 - Acute kidney failure, unspecified Status: Acute Assessment and Plan: Acute kidney injury, likely related to cardiac arrest, hypoxia, hypotension, shock -patient is been adequately fluid-resuscitated
[2022-06-29 12:02] LABS: Glucose Point of Care 107 mg/dl (65-105)
--- NOTE | 2022-06-29 13:34 | P.CONNP_ITS ---
Assessment and Plan Assessment and plan (1) Acute renal failure: Code(s): N17.9 - Acute kidney failure, unspecified Status: Acute Assessment and Plan: * normal renal function at baseline * suspect acute insult multifactorial: * cardiac arrest * hemodynamic instability * hypoxia * shock * evaluation to date: * renal ultrasound unremarkavle * urine electrolytes are non-prerenal * urine eosinophils negative * CPK elevated/rising -- follow trend * s/p adequate fluid resuscitation * s/p bicarb fluids for acidosis/mild rhabdo on admission * follow trend of repeat labs and urine output (2) Cardiac arrest: Code(s): I46.9 - Cardiac arrest, cause unspecified Status: Acute Assessment and Plan: * cardiac arrest prior to admission * another cardiac arrest on evening of admission * * Echo noted - EF ~ 20 - 25% * Cardiology following * continue conservative management (3) Acute respiratory failure: Code(s): J96.00 - Acute respiratory failure, unspecified whether with hypoxia or hypercapnia Status: Acute Assessment and Plan: * secondary to cardiac arrest * intubated on 06/27/2022 at the outside hospital * continue ventilator management * weaning when more stable (4) Shock: Code(s): R57.9 - Shock, unspecified Status: Acute Assessment and Plan: * s/p post cardiac arrest * septic versus cardiogenic * s/p adequate fluid resuscitation * central line in place for vasopressor therapy * lactic acid has normalized * follow culture data (so far negative to date) * on empiric antibiotic therapy (5) Encephalopathy: Code(s): G93.40 - Encephalopathy, unspecified Status: Acute Assessment and Plan: * due to previous seizure activity * hypoxia playing a role(?) * however, urine drug screen was positive methadone and benzodiazepines * Neurology following (6) Seizures: Code(s): R56.9 - Unspecified convulsions Status: Acute Assessment and Plan: * noted prior to presentation at [facility] ER as well as here at [facility] * on Keppra * follow up on EEG report * no further seizure activity as of 06/28 and today * continue seizure precautions Will continue to follow. History of Present Illness Reason for Consult Consult date: 06/29/22 Chief Complaint Chief complaint: resp failure,seizure activity,brief cardiac arrest History of Present Illness Narrative: All the information I have obtained is from review of electronic medical record as well as discussion with the physician/ nurses involved in her care as the patient is unable to provide me with any history as she is currently intubated and on mechanical ventilation. The patient is a 57-year-old female thin extensive past medical history as outlined below who presented as a transfer from [facility] in [place], she initially presented there after having a seizure while she was in route to her doctor's office. She apparently stopped breathing and had a cardiac arrest/ collapsed. She was subsequently intubated and CPR was done with run round of epinephrine with return of systemic circulation. However, she had another cardiac arrest, presumably V fib V-tach, and she received another round of CPR as well as epinephrine with return of systemic circulation although she required initiation of an epinephrine drip as well as dobutamine to maintain systemic circulation. She also had a paced with transcutaneous pacer pads as well admitted by this
--- NOTE | 2022-06-29 13:34 | PM.CNNEP ---
Assessment and Plan Assessment and plan (1) Acute renal failure: Code(s): N17.9 - Acute kidney failure, unspecified Status: Acute Assessment and Plan: normal renal function at baseline suspect acute insult multifactorial: cardiac arrest hemodynamic instability hypoxia shock evaluation to date: renal ultrasound unremarkavle urine electrolytes are non-prerenal urine eosinophils negative CPK elevated/rising -- follow trend s/p adequate fluid resuscitation s/p bicarb fluids for acidosis/mild rhabdo on admission follow trend of repeat labs and urine output (2) Cardiac arrest: Code(s): I46.9 - Cardiac arrest, cause unspecified Status: Acute Assessment and Plan: cardiac arrest prior to admission another cardiac arrest on evening of admission Echo noted - EF ~ 20 - 25% Cardiology following continue conservative management (3) Acute respiratory failure: Code(s): J96.00 - Acute respiratory failure, unspecified whether with hypoxia or hypercapnia Status: Acute Assessment and Plan: secondary to cardiac arrest intubated on 06/27/2022 at the outside hospital continue ventilator management weaning when more stable (4) Shock: Code(s): R57.9 - Shock, unspecified Status: Acute Assessment and Plan: s/p post cardiac arrest septic versus cardiogenic s/p adequate fluid resuscitation central line in place for vasopressor therapy lactic acid has normalized follow culture data (so far negative to date) on empiric antibiotic therapy (5) Encephalopathy: Code(s): G93.40 - Encephalopathy, unspecified Status: Acute Assessment and Plan: due to previous seizure activity hypoxia playing a role(?) however, urine drug screen was positive methadone and benzodiazepines Neurology following (6) Seizures: Code(s): R56.9 - Unspecified convulsions Status: Acute Assessment and Plan: noted prior to presentation at [facility]SH ER as well as here at [facility] follow up on EEG report no further seizure activity as of 06/28 and today continue seizure precautions Will continue to follow. History of Present Illness Reason for Consult Consult date: 06/29/22 Chief Complaint Chief complaint: resp failure,seizure activity,brief cardiac arrest History of Present Illness Narrative: All the information I have obtained is from review of electronic medical record as well as discussion with the physician/ nurses involved in her care as the patient is unable to provide me with any history as she is currently intubated and on mechanical ventilation. The patient is a 57-year-old female thin extensive past medical history as outlined below who presented as a transfer from [facility] in [place], she initially presented there after having a seizure while she was in route to her doctor's office. She apparently stopped breathing and had a cardiac arrest/ collapsed. She was subsequently intubated and CPR was done with run round of epinephrine with return of systemic circulation. However, she had another cardiac arrest, presumably V fib V-tach, and she received another round of CPR as well as epinephrine with return of systemic circulation although she required initiation of an epinephrine drip as well as dobutamine to maintain systemic circulation. She also had a paced with transcutaneous pacer pads as well admitted by this point, it was felt that she needed a higher level of care and she was transferred to [facility] ICU for further assessment. On arrival, her dobutamine was discontinued as was transcutaneous pacing as she did have a underlying rhythm present. A central line was placed for ongoing basal pressor support as well as an art line for closer hemodynamic monitoring. On the evening/early next day of admission, she had another VFib cardiac arrest requiring CPR,
--- NOTE | 2022-06-29 14:24 | PM.PNCARD ---
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 Will start ASA and Plavix. Beta-sagar will need to be started when no longer on pressors and remains hemodynamically stable. Continue with Amio drip at 1mg/min. Will need eventual EP evaluation when she recovers from this. EF is 20-25%. Unable to start GDMT at this time. Will start GDMT when she recovers more and is no longer requiring pressors. Subjective Date/time seen: 06/29/22 14:24 Cardiology follow up for SCAD, cardiomyopathy, VT/VF Patient had polymorphic Vtach/VF this morning and required 2 shocks to restore sinus rhythm. Otherwise no significant changes in her overall status. Review of Systems Review of Systems: ROS unobtainable: Yes unobtainable due to endotracheal tube, unobtainable due to medical condition and unobtainable due to mental status Exam Const: Other: Critically ill, intubated on mechanical ventilation and on pressors. HENMT: Other: OETT in place Neck: Neck: supple Resp: Other: On mechanical ventilation via OETT. Decreased breath sounds at bases. Cardio: Rate: regular rate Rhythm: regular rhythm Heart sounds: no murmurs Urinary Catheter: Urinary Catheter: other (Jay in place. ) Skin: Other: Varicose veins in lower extremities noted Neuro: Other: Sedated Psych: Other: Sedated Objective Data Vital Signs Vital Signs: Vital Signs - 24 hr 06/28/22 14:32 06/28/22 14:30 06/28/22 14:35 Temperature Pulse Rate 72 72 70 Respiratory Rate 24 H Blood Pressure 90/50 L 80/50 L Pulse Oximetry Oxygen Delivery Fraction of Inspired Oxygen 06/28/22 14:37 06/28/22 15:04 06/28/22 15:06 Temperature Pulse Rate 70 72 76 Respiratory Rate Blood Pressure 75/40 L 103/63 148/80 H Pulse Oximetry Oxygen Delivery Fraction of Inspired Oxygen 06/28/22 15:17 06/28/22 15:45 06/28/22 14:30 Temperature Pulse Rate 72 71 70 Respiratory Rate 24 H Blood Pressure 128/72 127/73 Pulse Oximetry Oxygen Delivery Fraction of Inspired Oxygen 06/28/22 14:35 06/28/22 15:56 06/28/22 15:59 Temperature Pulse Rate 71 69 Respiratory Rate 24 H Blood Pressure Pulse Oximetry 99 Oxygen Delivery Mechanical Ventilation Fraction of Inspired Oxygen 06/28/22 16:00 06/28/22 16:00 06/28/22 16:48 Temperature 38.2 C H Pulse Rate 70 67 Respiratory Rate 24 H Blood Pressure 104/61 Pulse Oximetry 100 100 Oxygen Delivery Mechanical Ventilation Fraction of Inspired Oxygen 70 60 06/28/22 16:59 06/28/22 17:09 06/28/22 17:54 Temperature Pulse Rate 69 70 69 Respiratory Rate Blood Pressure 109/66 134/76 Pulse Oximetry Oxygen Delivery Fraction of Inspired Oxygen 06/28/22 18:00 06/28/22 18:28 06/28/22 18:29 Temperature 37.9 C H Pulse Rate 77 80 80 Respiratory Rate 24 H 24 H Blood Pressure 119/67 157/89 H Pulse Oximetry 100 Oxygen Delivery Fraction of Inspired Oxygen 06/28/22 18:29 06/28/22 18:34 06/28/22 18:59 Temperature Pulse Rate 80 82 89 Respiratory Rate 24 H 24 H Blood Pressure 169/82 H Pulse Oximetry Oxygen Delivery Fraction of Inspired Oxygen 06/28/22 19:55 06/28/22 20:20 06/28/22 20:29 Temperature Pulse Rate 69 69 70 Respiratory Rate 27 H 24 H Blood Pressure Pulse Oximetry 100 Oxygen Delivery Mechanical Ventila
[2022-06-29 15:24] LABS: Anion Gap 8 mmol/L (8-16); Blood Urea Nitrogen 26 mg/dL (7-17); Calcium 7.8 mg/dL (8.4-10.2); Carbon Dioxide 30 mmol/L (22-30); Chloride 97 mmol/L (98-107); Estimated CRCL calculation 34 ml/min; Estimated Glomerular Filt Rate 27; Glucose 107 mg/dL (65-110); Sodium 135 mmol/L (137-145)
[2022-06-29 15:59] LABS: Magnesium 1.9 mg/dL (1.6-2.3)
[2022-06-29 18:05] LABS: Glucose Point of Care 169 mg/dl (65-105)
[2022-06-30] VITALS (63 sets, daily range): BP systolic 97–155; BP diastolic 49–93; PULSE 50–81; RESP 12–25; TEMP 37–37.7; O2SAT 92–100
[2022-06-30] MEDS: AMIODARONE 360 MG/D5W 200 ML 360 MG/200 ML BAG 33.33 MG IV CONT ×4 (00:04→20:27)
[2022-06-30 00:13] LABS: Glucose Point of Care 97 mg/dl (65-105)
[2022-06-30] MEDS: IPRATROPIUM BR 0.02% INH SOLN 0.5 MG/2.5 ML VIAL INHALATION ×4 (03:21→19:38)
[2022-06-30] MEDS: ALBUTEROL SULFATE NEB 2.5 MG/3 ML INH 5 MG INHALATION ×4 (03:21→19:38)
[2022-06-30] MEDS: PROPOFOL IV EMULSION 100 ML 19.35 MG IV CONT ×3 (04:09→21:13)
[2022-06-30 05:35] LABS: Basophils Percent Auto 0.2 % (0.2-1.2); Eosinophils Absolute Auto 0.3 K/mm3 (0-0.3); Eosinophils Percent Auto 3.4 % (0-4.4); Hematocrit 30.7 % (37.0-47.0); Hemoglobin 9.7 g/dL (12.0-15.0); Immature Granulocyte Absolute 0.06 K/mm3 (0.00-0.031); Immature Granulocyte Percent A 0.6 % (0-0.5); Lymphocytes Absolute Auto 1.54 K/mm3 (0.9-3.2); Lymphocytes Percent Auto 16.3 % (18.3-44.2); Mean Corpuscular HGB Conc 31.6 g/dl (32-36); Mean Corpuscular Hemoglobin 30.6 pg (26-34); Mean Corpuscular Volume 96.8 fl (80-100); Mean Platelet Volume 11.8 fl (7.4-10.4); Monocytes Absolute Auto 0.5 K/mm3 (0.1-0.6); Monocytes Percent Auto 4.8 % (2.6-8.5); Neutrophils Absolute Auto 7.1 K/mm3 (1.3-6.7); Neutrophils Percent Auto 74.7 % (45.5-73.1); Platelet Count Result 103 k/mm3 (150-375); Red Blood Count 3.17 M/mm3 (4.2-5.4); Red Cell Distribution Width 15.9 % (11.5-14.5); White Blood Count 9.5 K/mm3 (4.5-10.0)
[2022-06-30 05:38] LABS: Alanine Aminotransferase 635 U/L (6-35); Albumin Level 3.9 g/dL (3.5-5.1); Alkaline Phosphatase 86 U/L (38-126); Anion Gap 8 mmol/L (8-16); Aspartate Amino Transferase 702 U/L (14-36); Bilirubin,Total 0.9 mg/dL (0.2-1.3); Blood Urea Nitrogen 22 mg/dL (7-17); Carbon Dioxide 28 mmol/L (22-30); Chloride 102 mmol/L (98-107); Estimated CRCL calculation 38 ml/min; Estimated Glomerular Filt Rate 31; Glucose 105 mg/dL (65-110); Lactic Acid Reflex 1.2 mmol/L (0.7-2.0); Magnesium 2.2 mg/dL (1.6-2.3); Phosphorus 1.9 mg/dL (2.5-4.5); Potassium 3.2 mmol/L (3.4-5.0); Sodium 138 mmol/L (137-145); Triglycerides 128 mg/dL (<150)
[2022-06-30 05:57] LABS: Alveolar/Arterial O2 Gradient 132.5 mmHg; Base Excess ABG 2.8 mEq/l (+/-2.0); Carboxyhemoglobin 0.1 % THb (0-2.0); Fractional Inspired Oxygen 35 %; HCO3 ABG 25.9 mEq/l (22.0-26.0); Oxygen Saturation ABG 96.3 % (95.0-100.0); Oxyhemoglobin 94.7 % THb (90.0-100.0); PCO2 ABG 34.6 mmHg (35.0-45.0); PO2 ABG 76.8 mmHg (80.0-100.0); PO2 FiO2 Ratio Arterial Blood 2.19 %; Reduced Hemoglobin 5.2 %THb (0-5.0); Site Drawn ARTLINE; Total Hemoglobin 11.2 g/dL (12.0-18.0); pH ABG 7.492 (7.350-7.450)
[2022-06-30 05:58] LABS: Arterial Blood Gas PEEP 10 cmH2O; Arterial Blood Gas Tidal Volume 400 ml; Arterial Blood Gas Vent Mode CMV; Arterial Blood Gas Ventilator rate 24 /MIN; Device VENTILATOR
[2022-06-30 06:11] LABS: Glucose Point of Care 98 mg/dl (65-105)
[2022-06-30] MEDS: HEPARIN SODIUM 5,000 UNITS/ML VIAL 5000 UNITS SUB-Q (06:11)
[2022-06-30] MEDS: CENTRAL LINE FLUSH 10 ML IV PUSH ×4 (06:11→21:14)
[2022-06-30] MEDS: KCL 40 MEQ/WATER 100 ML 100 ML 25 ML IVPB (07:00)
[2022-06-30] MEDS: levETIRAcetam 500MG/NACL 100ML 500 MG/100 ML BAG 400 MG IVPB ×2 (08:07→20:39)
[2022-06-30] MEDS: PANTOPRAZOLE SODIUM IV 40 MG VIAL IV PUSH (08:25)
[2022-06-30] MEDS: CLOPIDOGREL BISULFATE 75 MG TABLET PO (08:26)
[2022-06-30] MEDS: ASPIRIN 81 MG ENTERIC TABLET PO (08:26)
[2022-06-30] MEDS: DOXYCYCLINE 100 MG/NS 100 ML 100 MG/100 ML BAG IVPB ×2 (09:07→21:14)
--- NOTE | 2022-06-30 09:18 | P.PNNP_ITS ---
Progress Note: A&P Assessment and Plan (1) Acute renal failure: Code(s): N17.9 - Acute kidney failure, unspecified Status: Acute Assessment and Plan: * improvement noted * normal renal function at baseline * suspect acute insult multifactorial: * cardiac arrest * hemodynamic instability * hypoxia * shock * evaluation to date: * renal ultrasound unremarkavle * urine electrolytes are non-prerenal * urine eosinophils negative * CPK elevated/rising -- follow trend * s/p adequate fluid resuscitation * s/p bicarb fluids for acidosis/mild rhabdo on admission * follow trend of repeat labs and urine output (2) Cardiac arrest: Code(s): I46.9 - Cardiac arrest, cause unspecified Status: Acute Assessment and Plan: * cardiac arrest prior to admission * another cardiac arrest on evening of admission * s/p CPR, defibrillation, and epinephrine * taken to slab polisher -- noted spontaneous coronary artery dissection of distal LAD * Vfib arrest multiple times in slab polisher requiring debrillation x 5 * Echo noted - EF ~ 20 - 25% * Cardiology following * continue conservative management (3) Acute respiratory failure: Code(s): J96.00 - Acute respiratory failure, unspecified whether with hypoxia or hypercapnia Status: Acute Assessment and Plan: * secondary to cardiac arrest * intubated on 06/27/2022 at the outside hospital * continue ventilator management * weaning when more stable (4) Shock: Code(s): R57.9 - Shock, unspecified Status: Acute Assessment and Plan: * s/p post cardiac arrest * septic versus cardiogenic * s/p adequate fluid resuscitation * central line in place for vasopressor therapy * lactic acid has normalized * follow culture data (so far negative to date) * on empiric antibiotic therapy (5) Encephalopathy: Code(s): G93.40 - Encephalopathy, unspecified Status: Acute Assessment and Plan: * due to previous seizure activity * hypoxia playing a role(?) * however, urine drug screen was positive methadone and benzodiazepines * Neurology following (6) Seizures: Code(s): R56.9 - Unspecified convulsions Status: Acute Assessment and Plan: * noted prior to presentation at [facility] ER as well as here at [facility] * on Keppra * follow up on EEG report * no further seizure activity as of 06/28 and today * continue seizure precautions Will continue to follow. Subjective Date/time seen: 06/30/22 09:18 Remains intubated/sedated at the time of my visit; renal function as well as uri ne output seems to be improving at this time; family at bedside and case was discussed with them; no other acute events overnight or earlier this morning. Exam Narrative: General: WD/WN female in NAD - intubated/sedated and on mechanical ventilation Heart: normal S1 and S2; no rub Lungs: cloarse and decreased at bases Abdomen: soft, nontender, nondistended, hypoactive bowel sounds Extremities: no cyanosis or clubbing; 1+ edema Skin: warm and dry Objective Data Vital Signs Vital Signs: Vital Signs Temp Pulse Pulse Resp BP Pulse Ox O2 Del Method 06/30/22 08:21 72 126/65 06/30/22 07:57 74 116/63 06/30/22 07:53 73 24 H 06/30/22 07:52 73 24 H 06/30/22
--- NOTE | 2022-06-30 09:18 | PM.PNNEP ---
Progress Note: A&P Assessment and Plan (1) Acute renal failure: Code(s): N17.9 - Acute kidney failure, unspecified Status: Acute Assessment and Plan: improvement noted normal renal function at baseline suspect acute insult multifactorial: cardiac arrest hemodynamic instability hypoxia shock evaluation to date: renal ultrasound unremarkavle urine electrolytes are non-prerenal urine eosinophils negative CPK elevated/rising -- follow trend s/p adequate fluid resuscitation s/p bicarb fluids for acidosis/mild rhabdo on admission follow trend of repeat labs and urine output (2) Cardiac arrest: Code(s): I46.9 - Cardiac arrest, cause unspecified Status: Acute Assessment and Plan: cardiac arrest prior to admission another cardiac arrest on evening of admission s/p CPR, defibrillation, and epinephrine taken to energy systems laboratory director -- noted spontaneous coronary artery dissection of distal LAD Vfib arrest multiple times in energy systems laboratory director requiring debrillation x 5 Echo noted - EF ~ 20 - 25% Cardiology following continue conservative management (3) Acute respiratory failure: Code(s): J96.00 - Acute respiratory failure, unspecified whether with hypoxia or hypercapnia Status: Acute Assessment and Plan: secondary to cardiac arrest intubated on 06/27/2022 at the outside hospital continue ventilator management weaning when more stable (4) Shock: Code(s): R57.9 - Shock, unspecified Status: Acute Assessment and Plan: s/p post cardiac arrest septic versus cardiogenic s/p adequate fluid resuscitation central line in place for vasopressor therapy lactic acid has normalized follow culture data (so far negative to date) on empiric antibiotic therapy (5) Encephalopathy: Code(s): G93.40 - Encephalopathy, unspecified Status: Acute Assessment and Plan: due to previous seizure activity hypoxia playing a role(?) however, urine drug screen was positive methadone and benzodiazepines Neurology following (6) Seizures: Code(s): R56.9 - Unspecified convulsions Status: Acute Assessment and Plan: noted prior to presentation at [facility] ER as well as here at [facility] follow up on EEG report no further seizure activity as of 06/28 and today continue seizure precautions Will continue to follow. Subjective Date/time seen: 06/30/22 09:18 Remains intubated/sedated at the time of my visit; renal function as well as urine output seems to be improving at this time; family at bedside and case was discussed with them; no other acute events overnight or earlier this morning. Exam Narrative: General: WD/WN female in NAD - intubated/sedated and on mechanical ventilation Heart: normal S1 and S2; no rub Lungs: cloarse and decreased at bases Abdomen: soft, nontender, nondistended, hypoactive bowel sounds Extremities: no cyanosis or clubbing; 1+ edema Skin: warm and dry Objective Data Vital Signs Vital Signs: Vital Signs Temp Pulse Pulse Resp BP Pulse Ox O2 Del Method 06/30/22 08:21 72 126/65 06/30/22 07:57 74 116/63 06/30/22 07:53 73 24 H 06/30/22 07:52 73 24 H 06/30/22 06:00 74 24 H 138/72 100 06/30/22 06:00 74 06/30/22 05:29 73 99 Mechanical Ventilation 06/30/22 06:05 74 146/76 H 06/30/22 03:40 67 24 H 06/30/22 04:09 74 18 06/30/22 04:00 74 18 06/30/22 04:00 06/30/22 04:00 74 18 99 Mechanical Ventilation 06/30/22 04:00 74 06/30/22 04:00 99.6 F 74 74 18 150/81 H 98 06/30/22 03:26 64 24 H 06/30/22 03:24 66 99 Mechanical Ventilation 06/30/22 02:00 68 16 121/65 100 06/30/22 02:00 68 06/29/22 23:15 73 100 Mechanical Ventilation 06/30/22 00:00 06/30/22 00:00 74 24 H 100 Mechanical Ve
--- NOTE | 2022-06-30 12:10 | WPDINTPN ---
Progress Note: A&P Assessment and Plan (1) Acute respiratory failure: Code(s): J96.00 - Acute respiratory failure, unspecified whether with hypoxia or hypercapnia Status: Acute Assessment and Plan: Acute respiratory failure likely related to cardiac arrest -intubated on 06/27/2022 at the outside hospital -chest x-ray this morning: Improved bibasilar airspace opacities, likely atelectasis.2. Small pleural effusions. -currently on CMV mode of ventilation, peep of 10, in 35% FiO2 with adequate ABGs -continue bronchodilators -sedated with propofol and fentanyl (as patient has been on methadone at home) Maintain RASS of 0 to -1, daily sedation vacation (2) Cardiac arrest: Code(s): I46.9 - Cardiac arrest, cause unspecified Status: Acute Assessment and Plan: Cardiac arrest of unknown etiology, EKG did not reveal ST-elevation CT, -mildly elevated 1st set of troponin, will repeat 3 hour and 6 hour troponin levels -discussed with Cardiology, will hold target temperature management at this time -will start heparin infusion for at least 48 hours for NSTEMI per cardiology -if she has any arrhythmias, will start amiodarone infusion 06/28: Patient overnight had a cardiac arrest in the ICU VFib arrest status post CPR, epinephrine and defibrillation.? Patient was taken to the cardiac cath lab nurse by ham smoker, left main coronary artery was widely patent, lad proximal to mid LAD is patent and mild diffuse disease with obstructive disease admitted to distal portion of the LAD and has appearance of spontaneous coronary artery dissection (SCAD).? Left circumflex has mild disease.? Right coronary artery without any significant obstructive angiographic disease.? Patient went to VFib arrest requiring defibrillation x6 on the cath table -discussed with cardiology at length, conservative management at this time. -continue amiodarone infusion - cardiology following 06/29/2022 patient did have a brief run of VFib of 6-8 beats which spontaneously resolved, later in the morning patient went into sustained VFib and had to be defibrillated x2, amiodarone 150 IV x1 push was given with return to sinus rhythm -continue amiodarone infusion -will keep potassium close to 4.0 and magnesium close to 2.5 06/30: Remains on amiodarone 1 mg/min. Will decrease to 0.5 mg/min since heart rate is in the 60s, Continue aspirin and Plavix -will replace potassium 06/27: ECHO:? EF of 20-25%, akinesis of distal half of the ventricle consider Takotsubo's cardiomyopathy, grade 3 diastolic dysfunction mild mitral valve regurg, mild tricuspid valve regurg, moderate pulmonary hypertension with RVSP of 61 mmHg (3) Shock: Code(s): R57.9 - Shock, unspecified Status: Acute Assessment and Plan: Patient in shock, post cardiac arrest could be related to septic versus cardiogenic -patient received 1.5 L IV fluids at the outside hospital -given admission L IV fluid bolus in the ICU here at [facility] -right IJ central line was inserted -OFF Levophed -lactic acid has normalized -continue cefepime and vancomycin (06/27) for pneumonia.? Added doxycycline on 06/28 -06/27/2022: Blood cultures negative x2 -06/27/2022: urine cultures no growth to date -06/27/2022: sputum cultures are negative -06/28/2022: MRSA screen pending - SARS-CoV-2 PCR, influenza a and B, RSV are all negative - urine Legionella and urine pneumococcal antigen obtained and pending -06/30: LFTs improving: Likely related to shock liver. Hepatitis panel is negative -right upper quadrant ultrasound shows distended gallbladder gallbladder wall thickening and trace pericholecystic ascites but without visible gallstones or sonographic Thurman sign, these findings are indeterminate for acute cholecystitis -will continue to monitor LFTs (4) Acute renal failure: Code(s): N17.9 - Acute kidney failure, unspecified Status: Acute Assessment and Plan: Acute kidney injury, lik
[2022-06-30 12:33] LABS: Glucose Point of Care 99 mg/dl (65-105)
--- NOTE | 2022-06-30 15:55 | PM.IMPN ---
Progress Note: A&P Assessment and Plan (1) Acute respiratory failure: Code(s): J96.00 - Acute respiratory failure, unspecified whether with hypoxia or hypercapnia Status: Acute Assessment and Plan: Acute respiratory failure likely related to cardiac arrest -intubated on 06/27/2022 at the outside hospital -chest x-ray : Improved bibasilar airspace opacities, likely atelectasis.2. Small pleural effusions. Vent management per seat joiner chainstitch -continue bronchodilators -sedated with propofol and fentanyl (as patient has been on methadone at home) Maintain RASS of 0 to -1, daily sedation vacation (2) Cardiac arrest: Code(s): I46.9 - Cardiac arrest, cause unspecified Status: Acute Assessment and Plan: Cardiac arrest of unknown etiology, EKG did not reveal ST-elevation [place], -mildly elevated 1st set of troponin, will repeat 3 hour and 6 hour troponin levels -discussed with Cardiology, will hold target temperature management at this time - started on heparin infusion for at least 48 hours for NSTEMI per cardiology -if she has any arrhythmias, will start amiodarone infusion 06/28: Patient overnight had a cardiac arrest in the ICU VFib arrest status post CPR, epinephrine and defibrillation.? 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 Left circumflex has mild disease.? Right coronary artery without any significant obstructive angiographic disease.? Patient went to VFib arrest requiring defibrillation x6 on the cath table -discussed with cardiology at length, conservative management at this time. -continue amiodarone infusion - cardiology following 06/29/2022 patient did have a brief run of VFib of 6-8 beats which spontaneously resolved, later in the morning patient went into sustained VFib and had to be defibrillated x2, amiodarone 150 IV x1 push was given with return to sinus rhythm -continue amiodarone infusion -will keep potassium close to 4.0 and magnesium close to 2.5 06/30: Remains on amiodarone 1 mg/min. Will decrease to 0.5 mg/min since heart rate is in the 60s, Continue aspirin and Plavix -will replace potassium 06/27: ECHO:? EF of 20-25%, akinesis of distal half of the ventricle consider Takotsubo's cardiomyopathy, grade 3 diastolic dysfunction mild mitral valve regurg, mild tricuspid valve regurg, moderate pulmonary hypertension with RVSP of 61 mmHg (3) Shock: Code(s): R57.9 - Shock, unspecified Status: Acute Assessment and Plan: Patient in shock, post cardiac arrest could be related to septic versus cardiogenic -patient received 1.5 L IV fluids at the outside hospital -given admission L IV fluid bolus in the ICU here at [facility] -right IJ central line was inserted -OFF Levophed -lactic acid has normalized -continue cefepime and vancomycin (06/27) for pneumonia.? Added doxycycline on 06/28 -06/27/2022: Blood cultures negative x2 -06/27/2022: urine cultures no growth to date -06/27/2022: sputum cultures are negative -06/28/2022: MRSA screen pending - SARS-CoV-2 PCR, influenza a and B, RSV are all negative - urine Legionella and urine pneumococcal antigen obtained and pending -06/30: LFTs improving: Likely related to shock liver. Hepatitis panel is negative -right upper quadrant ultrasound shows distended gallbladder gallbladder wall thickening and trace pericholecystic ascites but without visible gallstones or sonographic Thurman sign, these findings are indeterminate for acute cholecystitis -will continue to monitor LFTs (4) Acute renal failure: Code(s): N17.9 - Acute kidney failure, unspecified Status: Acute Assessment and Plan: Acute kidney injury, likely related to cardiac arrest, hypoxia, hypotension, shock.
[2022-06-30 17:36] LABS: Vancomycin Trough 16.2 ug/mL (10.0-20.0)
[2022-06-30 17:46] LABS: Glucose Point of Care 100 mg/dl (65-105)
--- NOTE | 2022-06-30 20:20 | PM.PNCARD ---
Progress Note: A&P Assessment and Plan (1) Spontaneous dissection of coronary artery: Code(s): I25.42 - Coronary artery dissection Status: Acute Assessment and Plan: Spontaneous coronary dissection, cardiomyopathy, ER 20-25%. Continue medical management with ASA, Plavix. BB when no longer on pressors Diuresing well. (2) Polymorphic ventricular tachycardia: Code(s): I47.29 - Other ventricular tachycardia Status: Acute Assessment and Plan: CArdiac arrests, polymorphic VT. Last defibrillations were 06/29/2022 Continue IV amiodarone Prob EP eval on recovery (3) Acute respiratory failure: Code(s): J96.00 - Acute respiratory failure, unspecified whether with hypoxia or hypercapnia Status: Acute Assessment and Plan: Intubated and sedated. (4) Acute renal failure: Code(s): N17.9 - Acute kidney failure, unspecified Status: Acute Assessment and Plan: Improving. (5) Shock: Code(s): R57.9 - Shock, unspecified Status: Acute Assessment and Plan: Nearly off levophed Subjective Date/time seen: 06/30/22 20:20 Interval history: Reason for visit: Cardiac arrest, cardiomyopathy, spontaneous coronary dissection. Date of service 06/28/2022: Patient had VT/VF cardiac arrest this morning. Taken to lab rn urgently (see cardiac cath report for full findings/details). Received 5 shocks on lab rn table for VT. Cath showing SCAD of the mid-distal LAD. Elevated LVEDP of 37mmHg. Patient is currently hemodynamically stable in the ICU. Amiodarone drip started in the lab rn. DOS 06/29/2022: Patient had polymorphic Vtach/VF this morning and required 2 shocks to restore sinus rhythm.? Otherwise no significant changes in her overall status. Cont IV amio. DOS 06/30/2022: Per RN followed some commands earlier. No further VT/VF. REmains on amio gtt, intubated and sedated. Off and on low-dose levophed. SQ heparin changed to fondaparinux for DVT prophylaxis due to platelet count declining to 103K; heparin antibodies pending. I's and O's yesterday 2550/4500. Review of Systems Review of Systems: ROS fr pt's RN and EMR ROS unobtainable: Yes unobtainable due to endotracheal tube, unobtainable due to medical condition and unobtainable due to mental status Objective Data Vital Signs Vital Signs: Vital Signs - 24 hr 06/29/22 20:52 06/29/22 20:54 06/29/22 22:00 Temperature Pulse Rate 66 66 66 Pulse Rate [Bilateral Pedal (Dorsalis Pedis)] Respiratory Rate 24 H Blood Pressure Pulse Oximetry 99 Oxygen Delivery Mechanical Ventilation Fraction of Inspired Oxygen 40 06/29/22 22:00 06/29/22 22:47 06/29/22 22:49 Temperature Pulse Rate 64 64 64 Pulse Rate [Bilateral Pedal (Dorsalis Pedis)] Respiratory Rate 24 H 24 H 24 H Blood Pressure 120/65 Pulse Oximetry 100 Oxygen Delivery Fraction of Inspired Oxygen 06/30/22 00:04 06/30/22 00:04 06/30/22 00:00 Temperature 99.7 F H Pulse Rate 74 74 76 Pulse Rate [Bilateral Pedal (Dorsalis Pedis)] 81 Respiratory Rate 18 Blood Pressure 155/83 H 155/83 H 151/81 H Pulse Oximetry 100 Oxygen Delivery Fraction of Inspired Oxygen 06/30/22 00:00 06/30/22 00:00 06/30/22 00:00 Temperature Pulse Rate 74 74 Pulse Rate [Bilateral Pedal (Dorsalis Pedis)] Respiratory Rate 24 H Blood Pressure Pulse Oximetry 100 Oxygen Delivery Mechanical Ventilation Fraction of Inspired Oxygen 40 40 06/29/22 23:15 06/30/22 02:00 06/30/22 02:00 Temperature Pulse Rate 73 68 68 Pulse Rate [Bilateral Pedal (Dorsalis Pedis)] Respiratory Rate 16 Blood Pressure 121/65 Pulse Oximetry 100 100 Oxygen Delivery Mechanical Ventilation Fraction of Inspired Oxygen 40 06/30/22 03:24 06/30/22 03:26 06/30/22 04:00 Temperature 99.6 F Pulse Rate 66 64 74 Pulse Rate [Bilateral Pedal (Dorsalis Pedis)] 74 Respiratory Rat
--- NOTE | 2022-06-30 20:35 | PC.NURSE ---
Patient's fentanyl drip running at 125mcg or 12.5ml/hr when this RN entered room. Dosage adjusted in patient's MAR.
[2022-06-30] MEDS: MINERAL OIL/WHITE PETROLATUM OINTMENT 1 APPLIC EACH EYE (20:49)
[2022-07-01] VITALS (75 sets, daily range): BP systolic 89–121; BP diastolic 43–84; PULSE 60–74; RESP 8–25; TEMP 36.7–37.8; O2SAT 94–99
[2022-07-01 00:01] LABS: Glucose Point of Care 117 mg/dl (65-105)
[2022-07-01] MEDS: AMIODARONE 360 MG/D5W 200 ML 360 MG/200 ML BAG 33.33 MG IV CONT ×2 (01:34→08:00)
[2022-07-01] MEDS: PROPOFOL IV EMULSION 100 ML 19.35 MG IV CONT (02:56)
[2022-07-01] MEDS: FENTANYL 2,500MCG/NS250ML(*CRX 2,500 MCG/250 ML BAG 12.5 MCG IV CONT (04:11)
[2022-07-01 05:23] LABS: Alanine Aminotransferase 537 U/L (6-35); Albumin Level 3.6 g/dL (3.5-5.1); Alkaline Phosphatase 81 U/L (38-126); Anion Gap 4 mmol/L (8-16); Aspartate Amino Transferase 378 U/L (14-36); Bilirubin,Total 0.7 mg/dL (0.2-1.3); Blood Urea Nitrogen 21 mg/dL (7-17); Calcium 8.3 mg/dL (8.4-10.2); Carbon Dioxide 29 mmol/L (22-30); Chloride 105 mmol/L (98-107); Estimated CRCL calculation 45 ml/min; Estimated Glomerular Filt Rate 39; Glucose 102 mg/dL (65-110); Magnesium 1.7 mg/dL (1.6-2.3); Potassium 3.3 mmol/L (3.4-5.0); Sodium 138 mmol/L (137-145)
[2022-07-01 05:27] LABS: Basophils Percent Auto 0.3 % (0.2-1.2); Eosinophils Absolute Auto 0.4 K/mm3 (0-0.3); Eosinophils Percent Auto 5.3 % (0-4.4); Hematocrit 27.9 % (37.0-47.0); Hemoglobin 9.1 g/dL (12.0-15.0); Immature Granulocyte Absolute 0.05 K/mm3 (0.00-0.031); Immature Granulocyte Percent A 0.7 % (0-0.5); Immature Platelet Fraction Pct 10.2 % (0.9-11.2); Lymphocytes Absolute Auto 1.61 K/mm3 (0.9-3.2); Lymphocytes Percent Auto 23.5 % (18.3-44.2); Mean Corpuscular HGB Conc 32.6 g/dl (32-36); Mean Corpuscular Hemoglobin 30.5 pg (26-34); Mean Corpuscular Volume 93.6 fl (80-100); Mean Platelet Volume 12.2 fl (7.4-10.4); Monocytes Absolute Auto 0.4 K/mm3 (0.1-0.6); Monocytes Percent Auto 6.4 % (2.6-8.5); Neutrophils Absolute Auto 4.4 K/mm3 (1.3-6.7); Neutrophils Percent Auto 63.8 % (45.5-73.1); Platelet Count Result 93 k/mm3 (150-375); Red Blood Count 2.98 M/mm3 (4.2-5.4); White Blood Count 6.8 K/mm3 (4.5-10.0)
[2022-07-01 05:34] LABS: Alveolar/Arterial O2 Gradient 75.5 mmHg; Base Excess ABG -1.4 mEq/l (+/-2.0); Carboxyhemoglobin 0.1 % THb (0-2.0); Fractional Inspired Oxygen 30 %; HCO3 ABG 20.7 mEq/l (22.0-26.0); Methemoglobin ABG 0.1 %THb (0-1.5); Oxygen Content ABG 12.3 %vol (16.0-22.0); Oxygen Saturation ABG 98.5 % (95.0-100.0); Oxyhemoglobin 96.9 % THb (90.0-100.0); PCO2 ABG 25.8 mmHg (35.0-45.0); PO2 ABG 108.1 mmHg (80.0-100.0); Reduced Hemoglobin 2.9 %THb (0-5.0); Total Hemoglobin 8.9 g/dL (12.0-18.0)
[2022-07-01] MEDS: CENTRAL LINE FLUSH 10 ML IV PUSH ×3 (05:37→20:34)
[2022-07-01 05:52] LABS: Device VENTILATOR; Site Drawn ARTLINE; pH ABG 7.522 (7.350-7.450)
[2022-07-01 05:53] LABS: Arterial Blood Gas PEEP 10 cmH2O; Arterial Blood Gas Tidal Volume 400 ml; Arterial Blood Gas Vent Mode CMV; Arterial Blood Gas Ventilator rate 24 /MIN
[2022-07-01] MEDS: PROPOFOL IV EMULSION 100 ML 22.58 MG IV CONT ×2 (07:54→12:01)
[2022-07-01] MEDS: KCL 40 MEQ/WATER 100 ML 100 ML 25 ML IVPB (07:58)
[2022-07-01] MEDS: POTASSIUM/PHOSPHORUS/SODIUM 1.5 GM PACKET 1 PACKET PO (07:58)
--- NOTE | 2022-07-01 08:27 | WPDINTPN ---
Progress Note: A&P Assessment and Plan (1) Acute respiratory failure: Code(s): J96.00 - Acute respiratory failure, unspecified whether with hypoxia or hypercapnia Status: Acute Assessment and Plan: Acute respiratory failure likely related to cardiac arrest -intubated on 06/27/2022 at the outside hospital -chest x-ray this morning:Bilateral pleural effusions with slight increase on the right.. Bibasilar airspace opacities, likely atelectasis. -currently on CMV mode of ventilation, peep of 10, in 35% FiO2 -ABGs reviewed, ventilator adjusted, decrease rate to 20 -continue bronchodilators -sedated with propofol and fentanyl (as patient has been on methadone at home) Maintain RASS of 0 to -1, daily sedation vacation (2) Cardiac arrest: Code(s): I46.9 - Cardiac arrest, cause unspecified Status: Acute Assessment and Plan: Cardiac arrest of unknown etiology, EKG did not reveal ST-elevation [place], -mildly elevated 1st set of troponin, will repeat 3 hour and 6 hour troponin levels -discussed with Cardiology, will hold target temperature management at this time -will start heparin infusion for at least 48 hours for NSTEMI per cardiology -if she has any arrhythmias, will start amiodarone infusion 06/28: Patient overnight had a cardiac arrest in the ICU VFib arrest status post CPR, epinephrine and defibrillation.? 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 Left circumflex has mild disease.? Right coronary artery without any significant obstructive angiographic disease.? Patient went to VFib arrest requiring defibrillation x6 on the cath table -discussed with cardiology at length, conservative management at this time. -continue amiodarone infusion - cardiology following 06/29/2022 patient did have a brief run of VFib of 6-8 beats which spontaneously resolved, later in the morning patient went into sustained VFib and had to be defibrillated x2, amiodarone 150 IV x1 push was given with return to sinus rhythm -continue amiodarone infusion -will keep potassium close to 4.0 and magnesium close to 2.5 07/01: Remains on amiodarone 1 mg/min. Continue amiodarone cardiology Continue aspirin and Plavix -will replace potassium 06/27: ECHO:? EF of 20-25%, akinesis of distal half of the ventricle consider Takotsubo's cardiomyopathy, grade 3 diastolic dysfunction mild mitral valve regurg, mild tricuspid valve regurg, moderate pulmonary hypertension with RVSP of 61 mmHg (3) Shock: Code(s): R57.9 - Shock, unspecified Status: Acute Assessment and Plan: Patient in shock, post cardiac arrest could be related to septic versus cardiogenic -patient received 1.5 L IV fluids at the outside hospital -given admission L IV fluid bolus in the ICU here at [facility] -right IJ central line was inserted -patient been on and off Levophed, currently off since 06/30 p.m. -lactic acid has normalized -continue cefepime and vancomycin (06/27) for pneumonia.? Added doxycycline on 06/28 -06/27/2022: Blood cultures negative x2 -06/27/2022: urine cultures no growth to date -06/27/2022: sputum cultures are negative -06/28/2022: MRSA screen negative - SARS-CoV-2 PCR, influenza a and B, RSV are all negative - urine Legionella and urine pneumococcal antigen obtained and pending -06/30: LFTs improving: Likely related to shock liver. Hepatitis panel is negative -right upper quadrant ultrasound shows distended gallbladder gallbladder wall thickening and trace pericholecystic ascites but without visible gallstones or sonographic Thurman sign, these findings are indeterminate for acute cholecystitis -will continue to monitor LFTs (4) Acute renal failure: Code(s): N17.9 - Acute kidney failur
[2022-07-01] MEDS: MAGNESIUM SULF 2 GM/WATER 50ML 2 GM/50 ML BAG IVPB (08:47)
[2022-07-01] MEDS: CLOPIDOGREL BISULFATE 75 MG TABLET PO (08:49)
[2022-07-01] MEDS: ASPIRIN 81 MG ENTERIC TABLET PO (08:49)
[2022-07-01] MEDS: PANTOPRAZOLE SODIUM IV 40 MG VIAL IV PUSH (08:49)
[2022-07-01] MEDS: FONDAPARINUX SODIUM 2.5 MG/0.5 ML SYRINGE SUB-Q (08:50)
[2022-07-01] MEDS: MINERAL OIL/WHITE PETROLATUM OINTMENT 1 APPLIC EACH EYE ×2 (08:51→20:34)
[2022-07-01 08:55] LABS: Iron 33 ug/dL (37-170)
[2022-07-01] MEDS: levETIRAcetam 500MG/NACL 100ML 500 MG/100 ML BAG 400 MG IVPB ×2 (08:59→21:02)
[2022-07-01 09:04] LABS: Percent Iron Saturation 15 % (20-50)
[2022-07-01] MEDS: POTASSIUM CHLORIDE 20 MEQ PACKET (FOR LIQUID) 40 MEQ FEED TUBE (09:26)
[2022-07-01] MEDS: DOXYCYCLINE 100 MG/NS 100 ML 100 MG/100 ML BAG IVPB ×2 (09:26→21:02)
[2022-07-01] MEDS: IPRATROPIUM BR 0.02% INH SOLN 0.5 MG/2.5 ML VIAL INHALATION ×3 (09:44→19:54)
[2022-07-01] MEDS: ALBUTEROL SULFATE NEB 2.5 MG/3 ML INH 5 MG INHALATION ×3 (09:44→19:53)
--- NOTE | 2022-07-01 11:17 | PM.PNNEP ---
Progress Note: A&P Assessment and Plan (1) Acute renal failure: Code(s): N17.9 - Acute kidney failure, unspecified Status: Acute Assessment and Plan: improvement noted normal renal function at baseline suspect acute insult multifactorial: cardiac arrest hemodynamic instability hypoxia shock evaluation to date: renal ultrasound unremarkavle urine electrolytes are non-prerenal urine eosinophils negative CPK elevated/rising -- follow trend s/p adequate fluid resuscitation s/p bicarb fluids for acidosis/mild rhabdo on admission follow trend of repeat labs and urine output (2) Cardiac arrest: Code(s): I46.9 - Cardiac arrest, cause unspecified Status: Acute Assessment and Plan: cardiac arrest prior to admission another cardiac arrest on evening of admission s/p CPR, defibrillation, and epinephrine taken to dental laboratory technology teacher -- noted spontaneous coronary artery dissection of distal LAD Vfib arrest multiple times in dental laboratory technology teacher requiring debrillation x 5 Echo noted - EF ~ 20 - 25% Cardiology following continue conservative management (3) Acute respiratory failure: Code(s): J96.00 - Acute respiratory failure, unspecified whether with hypoxia or hypercapnia Status: Acute Assessment and Plan: secondary to cardiac arrest intubated on 06/27/2022 at the outside hospital continue ventilator management weaning when more stable (4) Shock: Code(s): R57.9 - Shock, unspecified Status: Acute Assessment and Plan: s/p post cardiac arrest septic versus cardiogenic s/p adequate fluid resuscitation central line in place for vasopressor therapy weaned off Levophed lactic acid has normalized follow culture data (so far negative to date) on empiric antibiotic therapy (5) Encephalopathy: Code(s): G93.40 - Encephalopathy, unspecified Status: Acute Assessment and Plan: due to previous seizure activity hypoxia playing a role(?) however, urine drug screen was positive methadone and benzodiazepines Neurology following (6) Seizures: Code(s): R56.9 - Unspecified convulsions Status: Acute Assessment and Plan: noted prior to presentation at [facility] as well as here at [facility] on [facility] follow up on EEG report no further seizure activity as of 06/28 and today continue seizure precautions Will continue to follow. Subjective Date/time seen: 07/01/22 11:17 Patient remains intubated/sedated and on mechanical ventilation at the time of my visit; is able to open eys and nod to yes/no questions as well as follow simple commands; reasonable urine output noted and able to be weaned off vasopressor therapy; no other issues/events overnight or earlier this AM. Exam Narrative: General: WD/WN female intubated/sedated and on mechanical ventilation Heart: normal S1 and S2; no rub Lungs: coarse and decreased at bases Abdomen: soft, nontender, nondistended, hypoactive bowel sounds Extremities: no cyanosis or clubbing; 1+ edema Skin: warm and dry Objective Data Vital Signs Vital Signs: Vital Signs Temp Pulse Resp BP Pulse Ox O2 Del Method FiO2 07/01/22 10:30 99.0 F 67 20 94 07/01/22 10:26 99.0 F 66 20 103/56 L 94 07/01/22 10:15 99.1 F 65 20 95 07/01/22 10:00 99.3 F 66 20 95 07/01/22 09:50 99.4 F 66 20 95 07/01/22 09:39 99.6 F 65 24 H 95 07/01/22 08:38 100.1 F H 73 20 96 07/01/22 08:16 100.1 F H 73 20 96 07/01/22 07:41 100.1 F H 72 24 H 96 07/01/22 06:23 100.1 F H 73 10 L 96 07/01/22 00:15 99.0 F 63 24 H 98 07/01/22 00:14 99.0 F 63 24 H 98 06/30/22 19:47 98.7 F 61 24 H 108/62 96 06/30/22 19:45 98.7 F 61 24 H 97 06/30/22 19:40 98.7 F 61 24 H 97 06/30/22 18:45 98.9 F 63 24 H 96 06/30/22 18:31 98.9 F 63 24 H 96 06/30/22 1
--- NOTE | 2022-07-01 11:17 | P.PNNP_ITS ---
Progress Note: A&P Assessment and Plan (1) Acute renal failure: Code(s): N17.9 - Acute kidney failure, unspecified Status: Acute Assessment and Plan: * improvement noted * normal renal function at baseline * suspect acute insult multifactorial: * cardiac arrest * hemodynamic instability * hypoxia * shock * evaluation to date: * renal ultrasound unremarkavle * urine electrolytes are non-prerenal * urine eosinophils negative * CPK elevated/rising -- follow trend * s/p adequate fluid resuscitation * s/p bicarb fluids for acidosis/mild rhabdo on admission * follow trend of repeat labs and urine output (2) Cardiac arrest: Code(s): I46.9 - Cardiac arrest, cause unspecified Status: Acute Assessment and Plan: * cardiac arrest prior to admission * another cardiac arrest on evening of admission * s/p CPR, defibrillation, and epinephrine * taken to slab tripper -- noted spontaneous coronary artery dissection of distal LAD * Vfib arrest multiple times in slab tripper requiring debrillation x 5 * Echo noted - EF ~ 20 - 25% * Cardiology following * continue conservative management (3) Acute respiratory failure: Code(s): J96.00 - Acute respiratory failure, unspecified whether with hypoxia or hypercapnia Status: Acute Assessment and Plan: * secondary to cardiac arrest * intubated on 06/27/2022 at the outside hospital * continue ventilator management * weaning when more stable (4) Shock: Code(s): R57.9 - Shock, unspecified Status: Acute Assessment and Plan: * s/p post cardiac arrest * septic versus cardiogenic * s/p adequate fluid resuscitation * central line in place for vasopressor therapy * weaned off Levophed * lactic acid has normalized * follow culture data (so far negative to date) * on empiric antibiotic therapy (5) Encephalopathy: Code(s): G93.40 - Encephalopathy, unspecified Status: Acute Assessment and Plan: * due to previous seizure activity * hypoxia playing a role(?) * however, urine drug screen was positive methadone and benzodiazepines * Neurology following (6) Seizures: Code(s): R56.9 - Unspecified convulsions Status: Acute Assessment and Plan: * noted prior to presentation at [facility] as well as here at [facility] * on Keppra * follow up on EEG report * no further seizure activity as of 06/28 and today * continue seizure precautions Will continue to follow. Subjective Date/time seen: 07/01/22 11:17 Patient remains intubated/sedated and on mechanical ventilation at the time of my visit; is able to open eys and nod to yes/no questions as well as follow si mple commands; reasonable urine output noted and able to be weaned off vasopressor therapy; no other issues/events overnight or earlier this AM. Exam Narrative: General: WD/WN female intubated/sedated and on mechanical ventilation Heart: normal S1 and S2; no rub Lungs: coarse and decreased at bases Abdomen: soft, nontender, nondistended, hypoactive bowel sounds Extremities: no cyanosis or clubbing; 1+ edema Skin: warm and dry Objective Data Vital Signs Vital Signs: Vital Signs Temp Pulse Resp BP Pulse Ox O2 Del Method FiO2 07/01/22 10:30 99.0 F 67 20 94 07/01/22 10:26 99.0 F 66 20 103/56 L 94
[2022-07-01 11:18] LABS: Glucose Point of Care 106 mg/dl (65-105)
[2022-07-01] MEDS: AMIODARONE HCL 200 MG TABLET 400 MG PO ×2 (11:21→20:34)
[2022-07-01 12:47] LABS: Glucose Point of Care 113 mg/dl (65-105)
[2022-07-01 13:09] LABS: Folic Acid 9.7 ng/mL (2.76->20)
[2022-07-01 17:28] LABS: Glucose Point of Care 86 mg/dl (65-105)
--- NOTE | 2022-07-01 19:00 | PC.NURSE ---
Fentanyl drip running at 100mcg/hr, previous nurse had documented wrong, Fentanyl drip still has time remaining at 100mcg/hr.
[2022-07-01] MEDS: PROPOFOL IV EMULSION 100 ML 16.13 MG IV CONT (21:01)
[2022-07-01 22:44] LABS: Legionella pneumophila Ag Ur Not Detected (Not Detected)
[2022-07-02] VITALS (42 sets, daily range): BP systolic 87–124; BP diastolic 48–73; PULSE 51–79; RESP 13–70; TEMP 36.3–37.7; O2SAT 93–99
[2022-07-02 00:35] LABS: Glucose Point of Care 102 mg/dl (65-105)
[2022-07-02] MEDS: FENTANYL 2,500MCG/NS250ML(*CRX 2,500 MCG/250 ML BAG 10 MCG IV CONT (01:49)
[2022-07-02] MEDS: PROPOFOL IV EMULSION 100 ML 22.58 MG IV CONT ×4 (01:50→19:46)
[2022-07-02] MEDS: IPRATROPIUM BR 0.02% INH SOLN 0.5 MG/2.5 ML VIAL INHALATION ×4 (01:56→20:15)
[2022-07-02] MEDS: ALBUTEROL SULFATE NEB 2.5 MG/3 ML INH 5 MG INHALATION ×2 (01:56→08:03)
[2022-07-02 05:38] LABS: Alveolar/Arterial O2 Gradient 107.2 mmHg; Base Excess ABG -0.4 mEq/l (+/-2.0); Carboxyhemoglobin 0.3 % THb (0-2.0); Fractional Inspired Oxygen 30 %; HCO3 ABG 23.1 mEq/l (22.0-26.0); Methemoglobin ABG 0.3 %THb (0-1.5); Oxygen Content ABG 15.1 %vol (16.0-22.0); Oxygen Saturation ABG 94.2 % (95.0-100.0); Oxyhemoglobin 91.5 % THb (90.0-100.0); PO2 ABG 66.8 mmHg (80.0-100.0); PO2 FiO2 Ratio Arterial Blood 2.23 %; Reduced Hemoglobin 7.9 %THb (0-5.0); Total Hemoglobin 11.7 g/dL (12.0-18.0)
[2022-07-02 05:40] LABS: Arterial Blood Gas PEEP 10 cmH2O; Arterial Blood Gas Tidal Volume 400 ml; Arterial Blood Gas Vent Mode CMV; Arterial Blood Gas Ventilator rate 20 /MIN; Device VENTILATOR; Site Drawn ARTLINE
[2022-07-02] MEDS: CENTRAL LINE FLUSH 10 ML IV PUSH ×4 (05:56→20:54)
[2022-07-02 06:02] LABS: Basophils Percent Auto 0.2 % (0.2-1.2); Eosinophils Absolute Auto 0.3 K/mm3 (0-0.3); Eosinophils Percent Auto 7.1 % (0-4.4); Hematocrit 27.5 % (37.0-47.0); Hemoglobin 8.6 g/dL (12.0-15.0); Immature Granulocyte Absolute 0.04 K/mm3 (0.00-0.031); Immature Granulocyte Percent A 0.9 % (0-0.5); Immature Platelet Fraction Pct 8.9 % (0.9-11.2); Lymphocytes Percent Auto 23.5 % (18.3-44.2); Mean Corpuscular HGB Conc 31.3 g/dl (32-36); Mean Corpuscular Hemoglobin 30.8 pg (26-34); Mean Corpuscular Volume 98.6 fl (80-100); Mean Platelet Volume 12.2 fl (7.4-10.4); Monocytes Absolute Auto 0.5 K/mm3 (0.1-0.6); Monocytes Percent Auto 9.8 % (2.6-8.5); Neutrophils Absolute Auto 2.7 K/mm3 (1.3-6.7); Neutrophils Percent Auto 58.5 % (45.5-73.1); Platelet Count Result 100 k/mm3 (150-375); Red Blood Count 2.79 M/mm3 (4.2-5.4); Red Cell Distribution Width 16.7 % (11.5-14.5); White Blood Count 4.7 K/mm3 (4.5-10.0)
[2022-07-02 06:07] LABS: Alanine Aminotransferase 369 U/L (6-35); Albumin Level 3.3 g/dL (3.5-5.1); Alkaline Phosphatase 79 U/L (38-126); Anion Gap 5 mmol/L (8-16); Aspartate Amino Transferase 169 U/L (14-36); Bilirubin,Total 0.6 mg/dL (0.2-1.3); Blood Urea Nitrogen 21 mg/dL (7-17); Calcium 8.2 mg/dL (8.4-10.2); Carbon Dioxide 26 mmol/L (22-30); Chloride 107 mmol/L (98-107); Estimated CRCL calculation 47 ml/min; Estimated Glomerular Filt Rate 42; Glucose 97 mg/dL (65-110); Magnesium 1.8 mg/dL (1.6-2.3); Phosphorus 3.7 mg/dL (2.5-4.5); Potassium 4.5 mmol/L (3.4-5.0); Sodium 138 mmol/L (137-145); Triglycerides 95 mg/dL (<150)
[2022-07-02] MEDS: ASPIRIN 81 MG ENTERIC TABLET PO (08:11)
[2022-07-02] MEDS: AMIODARONE HCL 200 MG TABLET 400 MG PO ×2 (08:11→20:45)
[2022-07-02] MEDS: PANTOPRAZOLE SODIUM IV 40 MG VIAL IV PUSH (08:11)
[2022-07-02] MEDS: CLOPIDOGREL BISULFATE 75 MG TABLET PO (08:11)
[2022-07-02] MEDS: MINERAL OIL/WHITE PETROLATUM OINTMENT 1 APPLIC EACH EYE ×2 (08:11→19:49)
[2022-07-02] MEDS: levETIRAcetam 500MG/NACL 100ML 500 MG/100 ML BAG 400 MG IVPB ×2 (08:14→20:41)
[2022-07-02] MEDS: FONDAPARINUX SODIUM 2.5 MG/0.5 ML SYRINGE SUB-Q (08:18)
[2022-07-02] MEDS: DOXYCYCLINE 100 MG/NS 100 ML 100 MG/100 ML BAG IVPB ×2 (08:30→20:41)
--- NOTE | 2022-07-02 10:50 | PCFNICU ---
ICU Rounding Note: Pt current nutrition is Kathi AF 1.2 at 20 ml/hr. Nutrition recommendation: Goal rate at 45 ml/hr. Last recorded weight is 106.2 kg. Bowel Motility: No BM Labs Reviewed:Cr 1.3,GFR 42, BUN 21, Alb 3.3 Meds Noted:Fentanyl, Vancomycin, Keppra, Propofol 22.58 ml/wr=605 kcals, Protonix. Skin: WNL Additional Notes: Patient remain on mechanical vent and tube feedings of Vital AF 1.2 at 20 ml/hr with plans to increase to 45 ml/hr. Flush 30 ml q 4 hours. Agree with diet orders. Following daily in ICU rounds. Will reassess every Saturday and Saturday.
--- NOTE | 2022-07-02 10:50 | P.PNNP_ITS ---
Progress Note: A&P Assessment and Plan (1) Acute renal failure: Code(s): N17.9 - Acute kidney failure, unspecified Status: Acute Assessment and Plan: * acute kidney injury * normal renal function at baseline * suspect acute insult multifactorial: * cardiac arrest * hemodynamic instability * hypoxia * shock * evaluation to date: * renal ultrasound unremarkavle * urine electrolytes are non-prerenal * urine eosinophils negative * CPK elevated/rising -- follow trend * volume status looks good. * Blood pressure is improving. She is on no pressors. * Her creatinine has come down to 1.3 (2) Cardiac arrest: Code(s): I46.9 - Cardiac arrest, cause unspecified Status: Acute Assessment and Plan: * cardiac arrest prior to admission * another cardiac arrest on evening of admission * s/p CPR, defibrillation, and epinephrine * taken to label operator -- noted spontaneous coronary artery dissection of distal LAD * Vfib arrest multiple times in label operator requiring debrillation x 5 * Echo noted - EF ~ 20 - 25% * Cardiology managing (3) Acute respiratory failure: Code(s): J96.00 - Acute respiratory failure, unspecified whether with hypoxia or hypercapnia Status: Acute Assessment and Plan: * secondary to cardiac arrest * intubated on 06/27/2022 at the outside hospital * continue ventilator management * weaning when more stable (4) Shock: Code(s): R57.9 - Shock, unspecified Status: Acute Assessment and Plan: * s/p post cardiac arrest * septic versus cardiogenic * s/p adequate fluid resuscitation * blood pressure much improved. She is off pressors. (5) Encephalopathy: Code(s): G93.40 - Encephalopathy, unspecified Status: Acute Assessment and Plan: * due to previous seizure activity * hypoxia playing a role(?) * however, urine drug screen was positive methadone and benzodiazepines * Neurology following (6) Seizures: Code(s): R56.9 - Unspecified convulsions Status: Acute Assessment and Plan: * noted prior to presentation at [facility] as well as here at [facility] * on Keppra Will continue to follow. Subjective Date/time seen: 07/02/22 10:50 Interval history: Patient is on the ventilator. She is sedated. Exam Narrative: General: WD/WN female intubated/sedated and on mechanical ventilation Heart: normal S1 and S2; no rub or gallop Lungs: coarse and decreased at bases Abdomen: soft, nontender, nondistended, hypoactive bowel sounds Extremities: no cyanosis or clubbing; 1+ edema Skin: No rash Objective Data Vital Signs Vital Signs: Vital Signs - 24 hr 07/01/22 11:09 07/01/22 11:21 07/01/22 12:01 Temperature Pulse Rate 65 66 64 Respiratory Rate 20 Blood Pressure Pulse Oximetry 94 Oxygen Delivery Mechanical Ventilation Fraction of Inspired Oxygen 30 07/01/22 12:01 07/01/22 12:36 07/01/22 14:46 Temperature Pulse Rate 64 61 65 Respiratory Rate 20 Blood Pressure 96/84 L Pulse Oximetry 96 Oxygen Delivery Mechanical Ventilation Fraction of Inspired Oxygen 30 07/01/22 14:46 07/01/22 12:00 07/01/22
--- NOTE | 2022-07-02 10:50 | PM.PNNEP ---
Progress Note: A&P Assessment and Plan (1) Acute renal failure: Code(s): N17.9 - Acute kidney failure, unspecified Status: Acute Assessment and Plan: acute kidney injury normal renal function at baseline suspect acute insult multifactorial: cardiac arrest hemodynamic instability hypoxia shock evaluation to date: renal ultrasound unremarkavle urine electrolytes are non-prerenal urine eosinophils negative CPK elevated/rising -- follow trend volume status looks good. Blood pressure is improving. She is on no pressors. 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 Vfib arrest multiple times in [facility] requiring debrillation x 5 Echo noted - EF ~ 20 - 25% Cardiology managing (3) Acute respiratory failure: Code(s): J96.00 - Acute respiratory failure, unspecified whether with hypoxia or hypercapnia Status: Acute Assessment and Plan: secondary to cardiac arrest intubated on 06/27/2022 at the outside hospital continue ventilator management weaning when more stable (4) Shock: Code(s): R57.9 - Shock, unspecified Status: Acute Assessment and Plan: s/p post cardiac arrest septic versus cardiogenic s/p adequate fluid resuscitation blood pressure much improved. She is off pressors. (5) Encephalopathy: Code(s): G93.40 - Encephalopathy, unspecified Status: Acute Assessment and Plan: due to previous seizure activity hypoxia playing a role(?) however, urine drug screen was positive methadone and benzodiazepines Neurology following (6) Seizures: Code(s): R56.9 - Unspecified convulsions Status: Acute Assessment and Plan: noted prior to presentation at [facility] as well as here at [facility] on Keppra Will continue to follow. Subjective Date/time seen: 07/02/22 10:50 Interval history: Patient is on the ventilator. She is sedated. Exam Narrative: General: WD/WN female intubated/sedated and on mechanical ventilation Heart: normal S1 and S2; no rub or gallop Lungs: coarse and decreased at bases Abdomen: soft, nontender, nondistended, hypoactive bowel sounds Extremities: no cyanosis or clubbing; 1+ edema Skin: No rash Objective Data Vital Signs Vital Signs: Vital Signs - 24 hr 07/01/22 11:09 07/01/22 11:21 07/01/22 12:01 Temperature Pulse Rate 65 66 64 Respiratory Rate 20 Blood Pressure Pulse Oximetry 94 Oxygen Delivery Mechanical Ventilation Fraction of Inspired Oxygen 30 07/01/22 12:01 07/01/22 12:36 07/01/22 14:46 Temperature Pulse Rate 64 61 65 Respiratory Rate 20 Blood Pressure 96/84 L Pulse Oximetry 96 Oxygen Delivery Mechanical Ventilation Fraction of Inspired Oxygen 30 07/01/22 14:46 07/01/22 12:00 07/01/22 12:00 Temperature Pulse Rate 62 62 Respiratory Rate 20 19 Blood Pressure Pulse Oximetry 95 Oxygen Delivery Mechanical Ventilation Fraction of Inspired Oxygen 30 20 07/01/22 14:00 07/01/22 12:00 07/01/22 11:49 Temperature 98.8 F Pulse Rate 62 64 64 Respiratory Rate 18 Blood Pressure Pulse Oximetry 94 Oxygen Delivery Fraction of Inspired Oxygen 07/01/22 12:10 07/01/22 12:18 07/01/22 12:32 Temperature 98.8 F 98.8 F 98.7 F Pulse Rate 64 63 62 Respiratory Rate 20 18 20 Blood Pressure Pulse Oximetry 94 94 94 Oxygen Delivery Fraction of Inspired Oxygen 07/01/22 13:32 07/01/22 13:45 07/01/22 14:00 Temperature 98.7 F 98.7 F 98.6 F Pulse Rate 61 63 62 Respiratory Rate 16 20 20 Blood Pressure 98/60 L
[2022-07-02 12:18] LABS: Glucose Point of Care 90 mg/dl (65-105)
--- NOTE | 2022-07-02 13:59 | WPDINTPN ---
Progress Note: A&P Assessment and Plan (1) Acute respiratory failure: Code(s): J96.00 - Acute respiratory failure, unspecified whether with hypoxia or hypercapnia Status: Acute Assessment and Plan: Acute respiratory failure likely related to cardiac arrest -intubated on 06/27/2022 at the outside hospital -chest x-ray reviewed 1. Stable moderate-sized pleural effusions. 2. Stable airspace opacities in the mid and lower lung zones with a basilar predominance, consistent with atelectasis or less likely pneumonia -currently on CMV mode of ventilation, peep of 8, in 35% FiO2. Decrease PEEP to 8 -ABGs reviewed -consult IR for ultrasound-guided thoracentesis -continue bronchodilators -sedated with propofol and fentanyl (as patient has been on methadone at home) Maintain RASS of 0 to -1, daily sedation vacation (2) Cardiac arrest: Code(s): I46.9 - Cardiac arrest, cause unspecified Status: Acute Assessment and Plan: Cardiac arrest of unknown etiology, EKG did not reveal ST-elevation [place], -mildly elevated 1st set of troponin, will repeat 3 hour and 6 hour troponin levels -discussed with Cardiology, will hold target temperature management at this time -patient completed heparin infusion for 48 hours for NSTEMI per cardiology 06/28: Patient overnight had a cardiac arrest in the ICU VFib arrest status post CPR, epinephrine and defibrillation.? Patient was taken to the cardiac component lab tech by welding machine operator/tender, left main coronary artery was widely patent, lad proximal to mid LAD is patent and mild diffuse disease with obstructive disease admitted to distal portion of the LAD and has appearance of spontaneous coronary artery dissection (SCAD).? Left circumflex has mild disease.? Right coronary artery without any significant obstructive angiographic disease.? Patient went to VFib arrest requiring defibrillation x6 on the cath table -discussed with cardiology at length, conservative management at this time. -continue amiodarone infusion - cardiology following 06/29/2022 patient did have a brief run of VFib of 6-8 beats which spontaneously resolved, later in the morning patient went into sustained VFib and had to be defibrillated x2, amiodarone 150 IV x1 push was given with return to sinus rhythm -continue amiodarone infusion -will keep potassium close to 4.0 and magnesium close to 2.5 07/01: Remains on amiodarone 1 mg/min. Continue amiodarone cardiology Continue aspirin and Plavix -will replace potassium 07/02 -replace magnesium, continue p.o. amiodarone 06/27: ECHO:? EF of 20-25%, akinesis of distal half of the ventricle consider Takotsubo's cardiomyopathy, grade 3 diastolic dysfunction mild mitral valve regurg, mild tricuspid valve regurg, moderate pulmonary hypertension with RVSP of 61 mmHg (3) Shock: Code(s): R57.9 - Shock, unspecified Status: Acute Assessment and Plan: Patient in shock, post cardiac arrest could be related to septic versus cardiogenic -patient received 1.5 L IV fluids at the outside hospital -given admission L IV fluid bolus in the ICU here at [facility] -right IJ central line was inserted -patient been on and off Levophed, currently off since 06/30 p.m. -lactic acid has normalized -continue cefepime and vancomycin (06/27) for pneumonia.? Added doxycycline on 06/28. Continue for 5 days -06/27/2022: Blood cultures negative x2 -06/27/2022: urine cultures no growth to date -06/27/2022: sputum cultures are negative -06/28/2022: MRSA screen negative - SARS-CoV-2 PCR, influenza a and B, RSV are all negative - urine Legionella negative and urine pneumococcal antigen pending -06/30: LFTs improving: Likely related to shock liver. Hepatitis panel is negative -right upper quadrant ultrasound shows distended gallbladder gallbladder wall thickening and trace pericholecystic ascites but without visible gallstones or sonographic Thurman sign, these findings are indeterminate for acute cholecyst
[2022-07-02] MEDS: ALBUTEROL SULFATE NEB 2.5 MG/3 ML INH INHALATION ×2 (14:03→20:15)
--- NOTE | 2022-07-02 14:27 | PM.PNCARD ---
Progress Note: A&P Assessment and Plan (1) Spontaneous dissection of coronary artery: Code(s): I25.42 - Coronary artery dissection Status: Acute Assessment and Plan: Spontaneous coronary dissection, cardiomyopathy, ER 20-25%. Continue medical management with ASA, Plavix. Off pressors but BP soft. BB when able to tolerate. (2) Polymorphic ventricular tachycardia: Code(s): I47.29 - Other ventricular tachycardia Status: Acute Assessment and Plan: Cardiac arrests, polymorphic VT. Last defibrillations were 06/29/2022 Continue oral amiodarone Prob EP eval on recovery (3) Acute respiratory failure: Code(s): J96.00 - Acute respiratory failure, unspecified whether with hypoxia or hypercapnia Status: Acute Assessment and Plan: Intubated and sedated. (4) Acute renal failure: Code(s): N17.9 - Acute kidney failure, unspecified Status: Acute Assessment and Plan: Improving. (5) Shock: Code(s): R57.9 - Shock, unspecified Status: Acute Assessment and Plan: Off pressors. Subjective Date/time seen: 07/02/22 14:27 Cardiology follow up for cardiac arrest, SCAD Interval history: No acute events overnight. No VT/VF since 06/29. Off pressors. Review of Systems Review of Systems: ROS unobtainable: Yes unobtainable due to endotracheal tube, unobtainable due to medical condition and unobtainable due to mental status Exam Const: Other: Critically ill, intubated on mechanical ventilation and on pressors. HENMT: Other: OETT in place Neck: Neck: supple Resp: Other: On mechanical ventilation via OETT. Decreased breath sounds at bases. Cardio: Rate: regular rate Rhythm: regular rhythm Heart sounds: no murmurs Urinary Catheter: Urinary Catheter: other (Jay in place. ) Skin: Other: Varicose veins in lower extremities noted Neuro: Other: Sedated Psych: Other: Sedated Objective Data Vital Signs Vital Signs: Vital Signs - 24 hr 07/01/22 14:46 07/01/22 14:46 07/01/22 14:30 Temperature 36.9 C Pulse Rate 65 62 65 Respiratory Rate 20 18 Blood Pressure Pulse Oximetry 96 95 Oxygen Delivery Mechanical Ventilation Fraction of Inspired Oxygen 30 07/01/22 14:45 07/01/22 15:00 07/01/22 15:15 Temperature 36.9 C 36.9 C 36.8 C Pulse Rate 65 64 64 Respiratory Rate 17 18 20 Blood Pressure Pulse Oximetry 95 95 95 Oxygen Delivery Fraction of Inspired Oxygen 07/01/22 16:00 07/01/22 14:57 07/01/22 16:00 Temperature Pulse Rate 60 65 60 Respiratory Rate 20 18 Blood Pressure Pulse Oximetry Oxygen Delivery Fraction of Inspired Oxygen 07/01/22 16:00 07/01/22 16:00 07/01/22 18:00 Temperature Pulse Rate 71 73 Respiratory Rate 20 Blood Pressure Pulse Oximetry 95 Oxygen Delivery Mechanical Ventilation Fraction of Inspired Oxygen 20 20 07/01/22 15:30 07/01/22 15:45 07/01/22 16:00 Temperature 36.8 C 36.8 C 36.7 C Pulse Rate 62 61 61 Respiratory Rate 8 L 20 20 Blood Pressure 89/43 L Pulse Oximetry 95 95 95 Oxygen Delivery Fraction of Inspired Oxygen 07/01/22 16:01 07/01/22 16:15 07/01/22 16:30 Temperature 36.7 C 36.7 C 36.7 C Pulse Rate 61 61 66 Respiratory Rate 20 18 15 Blood Pressure Pulse Oximetry 94 96 97 Oxygen Delivery Fraction of Inspired Oxygen 07/01/22 16:36 07/01/22 16:45 07/01/22 17:00 Temperature 36.8 C 36.8 C 36.9 C Pulse Rate 68 66 68 Respiratory Rate 18 17 18 Blood Pressure 109/69 Pulse Oximetry 95 97 94 Oxygen Delivery Fraction of Inspired Oxygen 07/01/22 17:15 07/01/22 17:30 07/01/22 17:11 Temperature 37.1 C 37.1 C Pulse Rate 68 69 74 Respiratory Rate 20 20 Blood Pressure Pulse Oximetry 98 97 94 Oxygen Delivery Mechanical Ventilation Fraction of Inspired Oxygen 30 07/01/22 18:11 07/01/22 18:15 07/01/22 19:54 Temperature 37.2 C 37.2 C Pulse Rate 7
[2022-07-02] MEDS: MAGNESIUM SULF 2 GM/WATER 50ML 2 GM/50 ML BAG IVPB (14:30)
[2022-07-02 17:31] LABS: Glucose Point of Care 96 mg/dl (65-105)
[2022-07-02] MEDS: PROPOFOL IV EMULSION 100 ML 19.35 MG IV CONT (22:20)
[2022-07-02 23:57] LABS: Glucose Point of Care 83 mg/dl (65-105)
[2022-07-03] VITALS (43 sets, daily range): BP systolic 93–139; BP diastolic 47–74; PULSE 49–86; RESP 20–29; TEMP 36.4–37.8; O2SAT 87–97
[2022-07-03] MEDS: ALBUTEROL SULFATE NEB 2.5 MG/3 ML INH INHALATION ×4 (01:27→20:14)
[2022-07-03] MEDS: IPRATROPIUM BR 0.02% INH SOLN 0.5 MG/2.5 ML VIAL INHALATION ×4 (01:27→20:14)
[2022-07-03] MEDS: PROPOFOL IV EMULSION 100 ML 22.58 MG IV CONT ×3 (01:53→10:25)
[2022-07-03] MEDS: FENTANYL 2,500MCG/NS250ML(*CRX 2,500 MCG/250 ML BAG 10 MCG IV CONT (02:40)
[2022-07-03] MEDS: CENTRAL LINE FLUSH 10 ML IV PUSH ×4 (04:23→20:53)
[2022-07-03 04:43] LABS: Hematocrit 29.3 % (37.0-47.0); Immature Platelet Fraction Pct 8.6 % (0.9-11.2); Mean Corpuscular HGB Conc 30.7 g/dl (32-36); Mean Corpuscular Hemoglobin 30.5 pg (26-34); Mean Corpuscular Volume 99.3 fl (80-100); Mean Platelet Volume 11.5 fl (7.4-10.4); Platelet Count Result 135 k/mm3 (150-375); Red Blood Count 2.95 M/mm3 (4.2-5.4); Red Cell Distribution Width 16.6 % (11.5-14.5); White Blood Count 5.2 K/mm3 (4.5-10.0)
[2022-07-03 04:52] LABS: Alanine Aminotransferase 284 U/L (6-35); Albumin Level 3.5 g/dL (3.5-5.1); Alkaline Phosphatase 84 U/L (38-126); Anion Gap 3 mmol/L (8-16); Aspartate Amino Transferase 97 U/L (14-36); Bilirubin,Total 0.6 mg/dL (0.2-1.3); Blood Urea Nitrogen 21 mg/dL (7-17); Calcium 8.5 mg/dL (8.4-10.2); Carbon Dioxide 27 mmol/L (22-30); Chloride 109 mmol/L (98-107); Estimated CRCL calculation 58 ml/min; Estimated Glomerular Filt Rate 51; Glucose 99 mg/dL (65-110); Magnesium 1.9 mg/dL (1.6-2.3); Phosphorus 4.1 mg/dL (2.5-4.5); Potassium 4.5 mmol/L (3.4-5.0); Sodium 139 mmol/L (137-145)
[2022-07-03 05:02] LABS: Alveolar/Arterial O2 Gradient 95.1 mmHg; Base Excess ABG -1.4 mEq/l (+/-2.0); Carboxyhemoglobin 0.3 % THb (0-2.0); Fractional Inspired Oxygen 30 %; HCO3 ABG 24.1 mEq/l (22.0-26.0); Methemoglobin ABG 0.1 %THb (0-1.5); Modified Allen's Test Unable to perform; Oxygen Content ABG 17.7 %vol (16.0-22.0); Oxyhemoglobin 90.5 % THb (90.0-100.0); PCO2 ABG 43.2 mmHg (35.0-45.0); PO2 FiO2 Ratio Arterial Blood 2.27 %; Reduced Hemoglobin 9.1 %THb (0-5.0); Site Drawn ARTLINE; Total Hemoglobin 13.9 g/dL (12.0-18.0); pH ABG 7.364 (7.350-7.450)
[2022-07-03 05:03] LABS: Arterial Blood Gas PEEP 8 cmH2O; Arterial Blood Gas Tidal Volume 400 ml; Arterial Blood Gas Vent Mode CMV; Arterial Blood Gas Ventilator rate 20 /MIN; Device VENTILATOR
[2022-07-03] MEDS: FUROSEMIDE INJ 40 MG/4 ML VIAL IV PUSH (08:45)
[2022-07-03] MEDS: ASPIRIN 81 MG ENTERIC TABLET PO (08:53)
[2022-07-03] MEDS: CLOPIDOGREL BISULFATE 75 MG TABLET PO (08:53)
[2022-07-03] MEDS: AMIODARONE HCL 200 MG TABLET 400 MG PO ×2 (08:53→20:53)
[2022-07-03] MEDS: DOXYCYCLINE 100 MG/NS 100 ML 100 MG/100 ML BAG IVPB (08:53)
[2022-07-03] MEDS: FONDAPARINUX SODIUM 2.5 MG/0.5 ML SYRINGE SUB-Q (08:54)
[2022-07-03] MEDS: MINERAL OIL/WHITE PETROLATUM OINTMENT 1 APPLIC EACH EYE ×2 (08:54→20:53)
[2022-07-03] MEDS: levETIRAcetam 500MG/NACL 100ML 500 MG/100 ML BAG 400 MG IVPB ×2 (08:54→20:48)
[2022-07-03] MEDS: PANTOPRAZOLE SODIUM IV 40 MG VIAL IV PUSH (08:54)
--- NOTE | 2022-07-03 09:00 | P.PNNP_ITS ---
Progress Note: A&P Assessment and Plan (1) Acute renal failure: Code(s): N17.9 - Acute kidney failure, unspecified Status: Acute Assessment and Plan: * acute kidney injury * normal renal function at baseline * suspect acute insult multifactorial: * cardiac arrest * hemodynamic instability * hypoxia * shock * evaluation to date: * renal ultrasound unremarkavle * urine electrolytes are non-prerenal * urine eosinophils negative * CPK elevated/rising -- follow trend * volume status looks good. * Blood pressure is improving. She is on no pressors. * Her creatinine has come down to 1.1 * Renal will sign off. 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 * Vfib arrest multiple times in [facility] requiring debrillation x 5 * Echo noted - EF ~ 20 - 25% * Cardiology managing (3) Acute respiratory failure: Code(s): J96.00 - Acute respiratory failure, unspecified whether with hypoxia or hypercapnia Status: Acute Assessment and Plan: * secondary to cardiac arrest * intubated on 06/27/2022 at the outside hospital * continue ventilator management * weaning when more stable (4) Shock: Code(s): R57.9 - Shock, unspecified Status: Acute Assessment and Plan: * s/p post cardiac arrest * septic versus cardiogenic * s/p adequate fluid resuscitation * blood pressure much improved. She is off pressors. (5) Encephalopathy: Code(s): G93.40 - Encephalopathy, unspecified Status: Acute Assessment and Plan: * due to previous seizure activity * hypoxia playing a role(?) * however, urine drug screen was positive methadone and benzodiazepines * Neurology following (6) Seizures: Code(s): R56.9 - Unspecified convulsions Status: Acute Assessment and Plan: * noted prior to presentation at [facility] as well as here at [facility] * on Keppra Will continue to follow. Subjective Date/time seen: 07/03/22 09:00 Interval history: Patient is on the ventilator. She is sedated. she wakens at time necessitating more sedatives per nursing. Exam Narrative: General: WD/WN female intubated/sedated and on mechanical ventilation Heart: normal S1 and S2; no rub or gallop Lungs: coarse and decreased at bases Abdomen: soft, nontender, nondistended, hypoactive bowel sounds Extremities: no cyanosis or clubbing; 1+ edema Skin: No rash or sq nodules Objective Data Vital Signs Vital Signs: Vital Signs - 24 hr 07/02/22 10:00 07/02/22 10:52 07/02/22 12:00 Temperature Pulse Rate 64 64 61 Respiratory Rate Blood Pressure Pulse Oximetry 95 Oxygen Delivery Mechanical Ventilation Fraction of Inspired Oxygen 30 07/02/22 12:00 07/02/22 12:00 07/02/22 10:00 Temperature 99 F Pulse Rate 67 Respiratory Rate 20 Blood Pressure 113/67 Pulse Oximetry 94 Oxygen Delivery Mechanical Ventilation Fra
--- NOTE | 2022-07-03 09:00 | PM.PNNEP ---
Progress Note: A&P Assessment and Plan (1) Acute renal failure: Code(s): N17.9 - Acute kidney failure, unspecified Status: Acute Assessment and Plan: acute kidney injury normal renal function at baseline suspect acute insult multifactorial: cardiac arrest hemodynamic instability hypoxia shock evaluation to date: renal ultrasound unremarkavle urine electrolytes are non-prerenal urine eosinophils negative CPK elevated/rising -- follow trend volume status looks good. Blood pressure is improving. She is on no pressors. Her creatinine has come down to 1.1 Renal will sign off. 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 Vfib arrest multiple times in laboratory tech requiring debrillation x 5 Echo noted - EF ~ 20 - 25% Cardiology managing (3) Acute respiratory failure: Code(s): J96.00 - Acute respiratory failure, unspecified whether with hypoxia or hypercapnia Status: Acute Assessment and Plan: secondary to cardiac arrest intubated on 06/27/2022 at the outside hospital continue ventilator management weaning when more stable (4) Shock: Code(s): R57.9 - Shock, unspecified Status: Acute Assessment and Plan: s/p post cardiac arrest septic versus cardiogenic s/p adequate fluid resuscitation blood pressure much improved. She is off pressors. (5) Encephalopathy: Code(s): G93.40 - Encephalopathy, unspecified Status: Acute Assessment and Plan: due to previous seizure activity hypoxia playing a role(?) however, urine drug screen was positive methadone and benzodiazepines Neurology following (6) Seizures: Code(s): R56.9 - Unspecified convulsions Status: Acute Assessment and Plan: noted prior to presentation at [facility] as well as here at [facility] on Keppra Will continue to follow. Subjective Date/time seen: 07/03/22 09:00 Interval history: Patient is on the ventilator. She is sedated. she wakens at time necessitating more sedatives per nursing. Exam Narrative: General: WD/WN female intubated/sedated and on mechanical ventilation Heart: normal S1 and S2; no rub or gallop Lungs: coarse and decreased at bases Abdomen: soft, nontender, nondistended, hypoactive bowel sounds Extremities: no cyanosis or clubbing; 1+ edema Skin: No rash or sq nodules Objective Data Vital Signs Vital Signs: Vital Signs - 24 hr 07/02/22 10:00 07/02/22 10:52 07/02/22 12:00 Temperature Pulse Rate 64 64 61 Respiratory Rate Blood Pressure Pulse Oximetry 95 Oxygen Delivery Mechanical Ventilation Fraction of Inspired Oxygen 30 07/02/22 12:00 07/02/22 12:00 07/02/22 10:00 Temperature 99 F Pulse Rate 67 Respiratory Rate 20 Blood Pressure 113/67 Pulse Oximetry 94 Oxygen Delivery Mechanical Ventilation Fraction of Inspired Oxygen 30 30 07/02/22 12:00 07/02/22 13:51 07/02/22 14:04 Temperature 98.1 F Pulse Rate 60 59 L 59 L Respiratory Rate 20 20 20 Blood Pressure 95/57 L Pulse Oximetry 94 Oxygen Delivery Fraction of Inspired Oxygen 07/02/22 14:09 07/02/22 14:11 07/02/22 14:00 Temperature Pulse Rate 58 L 58 L 58 L Respiratory Rate 20 Blood Pressure Pulse Oximetry 95 Oxygen Delivery Mechanical Ventilation Fraction of Inspired Oxygen 30 07/02/22 16:06 07/02/22 16:06 07/02/22 14:00 Temperature Pulse Rate 64 59 L 59 L Respiratory Rate 13 20 20 Blood Pressure 103/56 L 103/56 L 87/54 L Pulse Oximetry 95 94 93 Oxygen Delivery Fraction of Inspired Oxygen 07/02/22 16:00 07/02/22 1
[2022-07-03] MEDS: dexmedeTOMIDine 400 MCG/100 ML 400 MCG/100 ML BAG 5.76 MCG IV CONT (09:51)
--- NOTE | 2022-07-03 10:05 | WPDINTPN ---
Progress Note: A&P Assessment and Plan (1) Acute respiratory failure: Code(s): J96.00 - Acute respiratory failure, unspecified whether with hypoxia or hypercapnia Status: Acute Assessment and Plan: Acute respiratory failure likely related to cardiac arrest -intubated on 06/27/2022 at the outside hospital -chest x-ray reviewed 1. Stable moderate-sized pleural effusions. 2. Stable airspace opacities in the mid and lower lung zones with a basilar predominance, consistent with atelectasis or less likely pneumonia -currently on CMV mode of ventilation, peep of 8, in 35% FiO2. Decrease PEEP to 8 -ABGs and chest x-ray reviewed -07/02 patient underwent right-sided ultrasound-guided thoracentesis but only 300 mL fluid was removed - 07/03 failed a PSV weaning trial due to high RSBI. -continue bronchodilators -sedated with propofol and fentanyl. Add Precedex. daily sedation vacation (2) Cardiac arrest: Code(s): I46.9 - Cardiac arrest, cause unspecified Status: Acute Assessment and Plan: Cardiac arrest of unknown etiology, EKG did not reveal ST-elevation CT, -mildly elevated 1st set of troponin, will repeat 3 hour and 6 hour troponin levels -discussed with Cardiology, will hold target temperature management at this time -patient completed heparin infusion for 48 hours for NSTEMI per cardiology 06/28: Patient overnight had a cardiac arrest in the ICU VFib arrest status post CPR, epinephrine and defibrillation.? Patient was taken to the cardiac medical lab scientist by solar sales consultant, left main coronary artery was widely patent, lad proximal to mid LAD is patent and mild diffuse disease with obstructive disease admitted to distal portion of the LAD and has appearance of spontaneous coronary artery dissection (SCAD).? Left circumflex has mild disease.? Right coronary artery without any significant obstructive angiographic disease.? Patient went to VFib arrest requiring defibrillation x6 on the cath table -discussed with cardiology at length, conservative management at this time. -continue amiodarone infusion - cardiology following 06/29/2022 patient did have a brief run of VFib of 6-8 beats which spontaneously resolved, later in the morning patient went into sustained VFib and had to be defibrillated x2, amiodarone 150 IV x1 push was given with return to sinus rhythm -continue amiodarone infusion -will keep potassium close to 4.0 and magnesium close to 2.5 12/18: Remains on amiodarone 1 mg/min. Continue amiodarone cardiology Continue aspirin and Plavix -will replace potassium Continue p.o. amiodarone 06/27: ECHO:? EF of 20-25%, akinesis of distal half of the ventricle consider Takotsubo's cardiomyopathy, grade 3 diastolic dysfunction mild mitral valve regurg, mild tricuspid valve regurg, moderate pulmonary hypertension with RVSP of 61 mmHg (3) Shock: Code(s): R57.9 - Shock, unspecified Status: Acute Assessment and Plan: Patient in shock, post cardiac arrest could be related to septic versus cardiogenic -patient received 1.5 L IV fluids at the outside hospital -given admission L IV fluid bolus in the ICU here at [facility] -right IJ central line was inserted -patient been on and off Levophed, currently off since 06/30 p.m. -lactic acid has normalized -continue cefepime and vancomycin (06/27) for pneumonia for 7 days.? Added doxycycline on 06/28. Continue for 5 days -06/27/2022: Blood cultures negative x2 -06/27/2022: urine cultures no growth to date -06/27/2022: sputum cultures are negative -06/28/2022: MRSA screen negative - SARS-CoV-2 PCR, influenza a and B, RSV are all negative - urine Legionella negative and urine pneumococcal antigen pending -06/30: LFTs improving: Likely related to shock liver. Hepatitis panel shows positive antibody for hepatitis-C. PCR is pending -right upper quadrant ultrasound shows distended gallbladder gallbladder wall thickening and trace pericholecystic ascites but with
--- NOTE | 2022-07-03 10:42 | PCNFU ---
Nutrition Follow-Up Complete: Inadequate Oral Intake as related to mechanical ventilation as evidenced by NPO Goal: Meet estimated nutritional needs Patient is is progressing towards goal.We will continue current goal. Pt current nutrition is Vital AF 1.2 at 45 ml/hr. Last recorded weight is 115.2 kg. Bowel Motility:+BM reported 06/30 Labs Reviewed:Cr 1.1,BUN 21, GFR 51 Meds Noted:Fentanyl, Vancomycin, Keppra, Propofol 22.58 ml/ff=294 kcals, Protonix. Skin: WNL Additional Notes: Patient remains on mechanical vent and tube feedings of Vital AF 1.2 at 45 ml/hr and tolerating per nursing. Total nutrition at this time. 1784 kcals and 74 gms protein/803 ml water. Meeting 100% kcal needs at 15 kcal/gm and 100% protein needs. Flush 30 ml q 4 hours. Thoracentesis noted 07/02, removed 300 ml. Failed breathing trail today. Plans to change sedation to Precedex. Agree with diet orders. Will monitor in ICU rounds daily and reassessing every Saturday and Saturday.
[2022-07-03 12:03] LABS: Glucose Point of Care 115 mg/dl (65-105)
--- NOTE | 2022-07-03 13:15 | PM.PNCARD ---
Progress Note: A&P Assessment and Plan (1) Spontaneous dissection of coronary artery: Code(s): I25.42 - Coronary artery dissection Status: Acute Assessment and Plan: Spontaneous coronary dissection, cardiomyopathy, EF 20-25%. Continue medical management with ASA, Plavix. Off pressors but BP soft. Will need to start GDMT with beta-sagar ARNI/ACEi/ARB when able to tolerate. Elevated LFTs are improving, if they continue to improve, would start high-intensity statin. (2) Polymorphic ventricular tachycardia: Code(s): I47.29 - Other ventricular tachycardia Status: Acute Assessment and Plan: Cardiac arrests, polymorphic VT. Last defibrillations were 06/29/2022 Continue oral amiodarone EP eval on recovery (3) Acute respiratory failure: Code(s): J96.00 - Acute respiratory failure, unspecified whether with hypoxia or hypercapnia Status: Acute Assessment and Plan: Intubated and sedated. (4) Acute renal failure: Code(s): N17.9 - Acute kidney failure, unspecified Status: Acute Assessment and Plan: Improving. (5) Shock: Code(s): R57.9 - Shock, unspecified Status: Acute Assessment and Plan: Off pressors. Subjective Date/time seen: 07/03/22 13:15 Interval history: Reason for visit: Cardiac arrest, cardiomyopathy, spontaneous coronary dissection. Date of service 06/28/2022: Patient had VT/VF cardiac arrest this morning. Taken to laborer starch factory urgently (see cardiac cath report for full findings/details). Received 5 shocks on laborer starch factory table for VT. Cath showing SCAD of the mid-distal LAD. Elevated LVEDP of 37mmHg. Patient is currently hemodynamically stable in the ICU. Amiodarone drip started in the laborer starch factory. DOS 06/29/2022: Patient had polymorphic Vtach/VF this morning and required 2 shocks to restore sinus rhythm.? Otherwise no significant changes in her overall status.? Cont IV amio. DOS 06/30/2022:? Per RN followed some commands earlier.? No further VT/VF.? REmains on amio gtt, intubated and sedated.? Off and on low-dose levophed. ? SQ heparin changed to fondaparinux for DVT prophylaxis due to platelet count declining to 103K; heparin antibodies pending.? I's and O's yesterday 2550/4500.? DOS 07/02/2022: No acute events overnight.? No VT/VF since 06/29.? Off pressors.? DOS 07/03/2022: No acute events overnight. Remains stable. Still intubated. Not on pressors. Review of Systems Review of Systems: ROS unobtainable: Yes unobtainable due to endotracheal tube, unobtainable due to medical condition and unobtainable due to mental status Exam Const: Other: Critically ill, intubated on mechanical ventilation HENMT: Other: OETT in place Neck: Neck: supple Resp: Other: On mechanical ventilation via OETT. Decreased breath sounds at bases. Cardio: Rate: regular rate Rhythm: regular rhythm Heart sounds: no murmurs Urinary Catheter: Urinary Catheter: other (Jay in place. ) Skin: Other: Varicose veins in lower extremities noted Neuro: Other: Sedated Psych: Other: Sedated Objective Data Vital Signs Vital Signs: Vital Signs - 24 hr 07/02/22 13:51 07/02/22 14:04 07/02/22 14:09 Temperature Pulse Rate 59 L 59 L 58 L Respiratory Rate 20 20 Blood Pressure Pulse Oximetry 95 Oxygen Delivery Mechanical Ventilation Fraction of Inspired Oxygen 30 07/02/22 14:11 07/02/22 14:00 07/02/22 16:06 Temperature Pulse Rate 58 L 58 L 64 Respiratory Rate 20 13 Blood Pressure 103/56 L Pulse Oximetry 95 Oxygen Delivery Fraction of Inspired Oxygen 07/02/22 16:06 07/02/22 14:00 07/02/22 16:00 Temperature 36.6 C Pulse Rate 59 L 59 L 58 L Respiratory Rate 20 20 20 Blood Pressure 103/56 L 87/54 L 90/50 L Pulse Oximetry 94 93 95 Oxygen Delivery Fraction of Inspired Oxygen 07/02/22 16:42 07/02/22 16:00 07/02/22 16:00 Temperature Pulse Rate 59 L 61 Respira
[2022-07-03 14:24] LABS: Hepatitis C RNA, Quant PCR <15 IU/mL
[2022-07-03] MEDS: dexmedeTOMIDine 400 MCG/100 ML 400 MCG/100 ML BAG 11.52 MCG IV CONT (16:48)
[2022-07-03 17:45] LABS: Glucose Point of Care 123 mg/dl (65-105)
[2022-07-03 17:52] LABS: Chloride Rand Ur 71 mmol/L (32-290); Chloride/Creatinine Rand Ur 789 (38-318); Creatinine Random Urine 9 mg/dL (20-275)
[2022-07-03 17:56] LABS: Glucose Point of Care 128 mg/dl (65-105)
[2022-07-03] MEDS: PROPOFOL IV EMULSION 100 ML 9.68 MG IV CONT (19:45)
[2022-07-03 20:03] LABS: Vancomycin Trough 17.9 ug/mL (10.0-20.0)
[2022-07-03 22:17] LABS: Heparin Induced Platelet Antib Negative (Negative)
[2022-07-03 23:53] LABS: Glucose Point of Care 136 mg/dl (65-105)
[2022-07-04] VITALS (44 sets, daily range): BP systolic 110–181; BP diastolic 54–148; PULSE 48–95; RESP 15–224; TEMP 36.4–38.3; O2SAT 90–96
[2022-07-04] MEDS: dexmedeTOMIDine 400 MCG/100 ML 400 MCG/100 ML BAG 17.28 MCG IV CONT ×2 (00:56→06:11)
[2022-07-04] MEDS: ALBUTEROL SULFATE NEB 2.5 MG/3 ML INH INHALATION ×4 (01:59→21:24)
[2022-07-04] MEDS: IPRATROPIUM BR 0.02% INH SOLN 0.5 MG/2.5 ML VIAL INHALATION ×4 (01:59→21:23)
[2022-07-04] MEDS: PROPOFOL IV EMULSION 100 ML 16.13 MG IV CONT (03:16)
[2022-07-04 05:23] LABS: Hematocrit 29.1 % (37.0-47.0); Mean Corpuscular HGB Conc 30.9 g/dl (32-36); Mean Corpuscular Hemoglobin 30.2 pg (26-34); Mean Corpuscular Volume 97.7 fl (80-100); Platelet Count Result 152 k/mm3 (150-375); Red Blood Count 2.98 M/mm3 (4.2-5.4); Red Cell Distribution Width 16.1 % (11.5-14.5); White Blood Count 5.4 K/mm3 (4.5-10.0)
[2022-07-04 05:33] LABS: Alanine Aminotransferase 205 U/L (6-35); Albumin Level 3.6 g/dL (3.5-5.1); Alkaline Phosphatase 81 U/L (38-126); Anion Gap 4 mmol/L (8-16); Aspartate Amino Transferase 55 U/L (14-36); Bilirubin,Total 0.5 mg/dL (0.2-1.3); Blood Urea Nitrogen 26 mg/dL (7-17); Calcium 8.8 mg/dL (8.4-10.2); Carbon Dioxide 27 mmol/L (22-30); Chloride 105 mmol/L (98-107); Estimated CRCL calculation 53 ml/min; Estimated Glomerular Filt Rate 46; Glucose 118 mg/dL (65-110); Magnesium 1.6 mg/dL (1.6-2.3); Potassium 4.1 mmol/L (3.4-5.0); Sodium 136 mmol/L (137-145)
[2022-07-04 05:36] LABS: Triglycerides 96 mg/dL (<150)
[2022-07-04 05:43] LABS: Base Excess ABG -3.4 mEq/l (+/-2.0); Carboxyhemoglobin 0.2 % THb (0-2.0); Device VENTILATOR; Fractional Inspired Oxygen 40 %; HCO3 ABG 21.3 mEq/l (22.0-26.0); Methemoglobin ABG 0.3 %THb (0-1.5); Modified Allen's Test Unable to perform; Oxygen Content ABG 13.5 %vol (16.0-22.0); Oxygen Saturation ABG 94.2 % (95.0-100.0); Oxyhemoglobin 92.6 % THb (90.0-100.0); PCO2 ABG 36.5 mmHg (35.0-45.0); PO2 ABG 71.2 mmHg (80.0-100.0); PO2 FiO2 Ratio Arterial Blood 1.78 %; Reduced Hemoglobin 6.9 %THb (0-5.0); Site Drawn ARTLINE; Total Hemoglobin 10.3 g/dL (12.0-18.0); pH ABG 7.383 (7.350-7.450)
[2022-07-04 05:44] LABS: Arterial Blood Gas PEEP 8 cmH2O; Arterial Blood Gas Tidal Volume 400 ml; Arterial Blood Gas Vent Mode CMV; Arterial Blood Gas Ventilator rate 20 /MIN
[2022-07-04] MEDS: CENTRAL LINE FLUSH 10 ML IV PUSH ×4 (06:13→19:56)
[2022-07-04] MEDS: FONDAPARINUX SODIUM 2.5 MG/0.5 ML SYRINGE SUB-Q (08:14)
[2022-07-04] MEDS: ASPIRIN 81 MG ENTERIC TABLET PO (08:15)
[2022-07-04] MEDS: CLOPIDOGREL BISULFATE 75 MG TABLET PO (08:15)
[2022-07-04] MEDS: MINERAL OIL/WHITE PETROLATUM OINTMENT 1 APPLIC EACH EYE (08:15)
[2022-07-04] MEDS: PANTOPRAZOLE SODIUM IV 40 MG VIAL IV PUSH (08:15)
[2022-07-04] MEDS: FUROSEMIDE INJ 40 MG/4 ML VIAL IV PUSH (08:21)
[2022-07-04] MEDS: MAGNESIUM SULF 2 GM/WATER 50ML 2 GM/50 ML BAG IVPB (08:21)
[2022-07-04] MEDS: levETIRAcetam 500MG/NACL 100ML 500 MG/100 ML BAG 400 MG IVPB ×2 (08:42→20:29)
[2022-07-04] MEDS: AMIODARONE HCL 200 MG TABLET 400 MG PO ×2 (09:00→20:29)
[2022-07-04 09:30] LABS: Alveolar/Arterial O2 Gradient 171.4 mmHg; Base Excess ABG -0.2 mEq/l (+/-2.0); Carboxyhemoglobin 0.3 % THb (0-2.0); Fractional Inspired Oxygen 40 %; HCO3 ABG 24.5 mEq/l (22.0-26.0); Methemoglobin ABG 0.1 %THb (0-1.5); Oxygen Content ABG 13.9 %vol (16.0-22.0); Oxygen Saturation ABG 93.6 % (95.0-100.0); Oxyhemoglobin 91.5 % THb (90.0-100.0); PCO2 ABG 40.1 mmHg (35.0-45.0); PO2 ABG 67.7 mmHg (80.0-100.0); PO2 FiO2 Ratio Arterial Blood 1.69 %; Reduced Hemoglobin 8.1 %THb (0-5.0); Total Hemoglobin 10.8 g/dL (12.0-18.0); pH ABG 7.403 (7.350-7.450)
[2022-07-04 09:31] LABS: Device VENTILATOR; Site Drawn ARTLINE
[2022-07-04 09:32] LABS: Arterial Blood Gas PEEP 8 cmH2O; Arterial Blood Gas Pressure Support 5 cmH2O; Arterial Blood Gas Vent Mode SPONTANEOUS
--- NOTE | 2022-07-04 09:36 | WPDINTPN ---
Progress Note: A&P Assessment and Plan (1) Acute respiratory failure: Code(s): J96.00 - Acute respiratory failure, unspecified whether with hypoxia or hypercapnia Status: Acute Assessment and Plan: Acute respiratory failure likely related to cardiac arrest -intubated on 06/27/2022 at the outside hospital -chest x-ray reviewed 1. Stable moderate-sized pleural effusions. 2. Stable airspace opacities in the mid and lower lung zones with a basilar predominance, consistent with atelectasis or less likely pneumonia -currently on CMV mode of ventilation, peep of 8, in 35% FiO2. Decrease PEEP to 8 -ABGs and chest x-ray reviewed -07/02 patient underwent right-sided ultrasound-guided thoracentesis but only 300 mL fluid was removed - 07/03 failed a PSV weaning trial due to high RSBI. - 11/19 PSV SBT done for close to 1 hour. RSBI, ABGI and Vitals acceptable. Pt awake and following commands. Will extubate and monitor. NPO for now. May need Bipap -continue bronchodilators - wean Precedex -continue diuretics (2) Cardiac arrest: Code(s): I46.9 - Cardiac arrest, cause unspecified Status: Acute Assessment and Plan: Cardiac arrest of unknown etiology, EKG did not reveal ST-elevation CO, -mildly elevated 1st set of troponin, will repeat 3 hour and 6 hour troponin levels -discussed with Cardiology, will hold target temperature management at this time -patient completed heparin infusion for 48 hours for NSTEMI per cardiology 06/28: Patient overnight had a cardiac arrest in the ICU VFib arrest status post CPR, epinephrine and defibrillation.? Patient was taken to the cardiac cathode washer by industrial technology education teacher, left main coronary artery was widely patent, lad proximal to mid LAD is patent and mild diffuse disease with obstructive disease admitted to distal portion of the LAD and has appearance of spontaneous coronary artery dissection (SCAD).? Left circumflex has mild disease.? Right coronary artery without any significant obstructive angiographic disease.? Patient went to VFib arrest requiring defibrillation x6 on the cath table -discussed with cardiology at length, conservative management at this time. -continue amiodarone infusion - cardiology following 06/29/2022 patient did have a brief run of VFib of 6-8 beats which spontaneously resolved, later in the morning patient went into sustained VFib and had to be defibrillated x2, amiodarone 150 IV x1 push was given with return to sinus rhythm Continue aspirin and Plavix Continue p.o. amiodarone 06/27: ECHO:? EF of 20-25%, akinesis of distal half of the ventricle consider Takotsubo's cardiomyopathy, grade 3 diastolic dysfunction mild mitral valve regurg, mild tricuspid valve regurg, moderate pulmonary hypertension with RVSP of 61 mmHg (3) Shock: Code(s): R57.9 - Shock, unspecified Status: Acute Assessment and Plan: Patient in shock, post cardiac arrest could be related to septic versus cardiogenic -patient received 1.5 L IV fluids at the outside hospital -given admission L IV fluid bolus in the ICU here at [facility] -right IJ central line was inserted -patient been on and off Levophed, currently off since 06/30 p.m. -lactic acid has normalized -continue cefepime and vancomycin (06/27) for pneumonia for 7 days.? Added doxycycline on 06/28. Continue for 5 days -06/27/2022: Blood cultures negative x2 -06/27/2022: urine cultures no growth to date -06/27/2022: sputum cultures are negative -06/28/2022: MRSA screen negative - SARS-CoV-2 PCR, influenza a and B, RSV are all negative - urine Legionella negative and urine pneumococcal antigen pending -06/30: LFTs improving: Likely related to shock liver. Hepatitis panel shows positive antibody for hepatitis-C. PCR is pending -right upper quadrant ultrasound shows distended gallbladder gallbladder wall thickening and trace pericholecystic ascites but without visible gallstones or sonographic Thurman sign, these findings are
--- NOTE | 2022-07-04 10:37 | PCFNICU ---
ICU Rounding Note: Pt current nutrition is NPO. Last recorded weight is 109.4 kg. Bowel Motility: reported BM 06/30 Labs Reviewed:Cr 1.2,GFR 46, BUN 26, Na 136, Hct 29.1 Meds Noted:Keppra, Vancomycin Skin: WNL Additional Notes: Patient extubated today. No diet orders yet at this time. Following daily in ICU rounds and reassessing every 3 days.
--- NOTE | 2022-07-04 10:55 | PM.PNCARD ---
Progress Note: A&P Assessment and Plan (1) Spontaneous dissection of coronary artery: Code(s): I25.42 - Coronary artery dissection Status: Acute Assessment and Plan: Spontaneous coronary dissection, cardiomyopathy, EF 20-25%. Continue medical management with ASA, Plavix. Off pressors but BP soft. Will need to start GDMT with beta-sagar ARNI/ACEi/ARB when able to tolerate. Elevated LFTs are improving, if they continue to improve, would start high-intensity statin. (2) Polymorphic ventricular tachycardia: Code(s): I47.29 - Other ventricular tachycardia Status: Acute Assessment and Plan: Cardiac arrests, polymorphic VT. Last defibrillations were 06/29/2022 Continue oral amiodarone EP eval on recovery (3) Acute respiratory failure: Code(s): J96.00 - Acute respiratory failure, unspecified whether with hypoxia or hypercapnia Status: Acute Assessment and Plan: Intubated (4) Acute renal failure: Code(s): N17.9 - Acute kidney failure, unspecified Status: Acute Assessment and Plan: Improving. (5) Shock: Code(s): R57.9 - Shock, unspecified Status: Acute Assessment and Plan: Off pressors. Subjective Date/time seen: 07/04/22 10:55 Interval history: Reason for visit: Cardiac arrest, cardiomyopathy, spontaneous coronary dissection. Date of service 06/28/2022: Patient had VT/VF cardiac arrest this morning. Taken to tender labor urgently (see cardiac cath report for full findings/details). Received 5 shocks on tender labor table for VT. Cath showing SCAD of the mid-distal LAD. Elevated LVEDP of 37mmHg. Patient is currently hemodynamically stable in the ICU. Amiodarone drip started in the tender labor. DOS 06/29/2022: Patient had polymorphic Vtach/VF this morning and required 2 shocks to restore sinus rhythm.? Otherwise no significant changes in her overall status.? Cont IV amio. DOS 06/30/2022:? Per RN followed some commands earlier.? No further VT/VF.? REmains on amio gtt, intubated and sedated.? Off and on low-dose levophed. ? SQ heparin changed to fondaparinux for DVT prophylaxis due to platelet count declining to 103K; heparin antibodies pending.? I's and O's yesterday 2550/4500.? DOS 07/02/2022: No acute events overnight.? No VT/VF since 06/29.? Off pressors.? DOS 07/03/2022: No acute events overnight. Remains stable. Still intubated. Not on pressors. DOS 07/04/2022: No acute events overnight. Patient is waking up. Hopefully will get extubated soon. Review of Systems Review of Systems: ROS unobtainable: Yes unobtainable due to endotracheal tube Exam Const: Other: Critically ill, intubated on mechanical ventilation HENMT: Other: OETT in place Neck: Neck: supple Resp: Other: On mechanical ventilation via OETT. Decreased breath sounds at bases. Cardio: Rate: regular rate Rhythm: regular rhythm Heart sounds: no murmurs Urinary Catheter: Urinary Catheter: other (Jay in place. ) Skin: Other: Varicose veins in lower extremities noted Neuro: Other: Wakes up when name is called. Shakes her head yes or no when asked questions. Extrem: General: no edema Objective Data Vital Signs Vital Signs: Vital Signs - 24 hr 07/03/22 11:08 07/03/22 12:00 07/03/22 12:00 Temperature 37.8 C H Pulse Rate 67 61 61 Respiratory Rate 24 H Blood Pressure 94/53 L Pulse Oximetry 94 94 Oxygen Delivery Mechanical Ventilation Oxygen Flow Rate Fraction of Inspired Oxygen 50 07/03/22 12:00 07/03/22 12:00 07/03/22 12:00 Temperature Pulse Rate 61 61 Respiratory Rate 20 20 Blood Pressure Pulse Oximetry 94 Oxygen Delivery Mechanical Ventilation Oxygen Flow Rate Fraction of Inspired Oxygen 50 50 07/03/22 12:00 07/03/22 12:00 07/03/22 13:31 Temperature Pulse Rate 61 61 58 L Respiratory Rate 20 20 20 Blood Pressure Pulse Oximetry Oxygen Delivery Oxygen Flow Ra
[2022-07-04 11:51] LABS: Glucose Point of Care 121 mg/dl (65-105)
--- NOTE | 2022-07-04 12:27 | PCSTNOTE ---
Please refer to the Bedside Swallow Evaluation in the EMR. Please note, silent aspiration cannot be ruled out at bedside.
[2022-07-04] MEDS: dexmedeTOMIDine 400 MCG/100 ML 400 MCG/100 ML BAG 20.16 MCG IV CONT (12:48)
--- NOTE | 2022-07-04 14:28 | PC.NURSE ---
Pt severely agitated and attempting to climb out of bed. Screaming I'm dying. I can't breath. RT notified and breathing treatment administered. Pt still screaming and attempting to climb out of bed. Dr. Ruff notified and at bedside with verbal order to increase Precedex to 1.5mcg/kg/hr, continue to titrate off as patient tolerates.
[2022-07-04] MEDS: ACETAMINOPHEN ELIXIR 325 MG/10.15 ML UDC 650 MG PO (14:38)
[2022-07-04 14:57] LABS: UFH SRA Result Interpretation Negative (Negative)
[2022-07-04] MEDS: dexmedeTOMIDine 400 MCG/100 ML 400 MCG/100 ML BAG 43.2 MCG IV CONT ×3 (15:21→23:20)
[2022-07-04] MEDS: LABETALOL HCL INJ 100 MG/20 ML VIAL 20 MG IV PUSH ×2 (16:45→23:22)
[2022-07-04 16:55] LABS: Glucose Point of Care 144 mg/dl (65-105)
[2022-07-04] MEDS: hydrALAZINE HCL 20 MG/ML VIAL IV PUSH (18:23)
[2022-07-04] MEDS: MORPHINE SULFATE (*CRX) 2 MG/ML INJ IV PUSH ×2 (20:30→23:23)
[2022-07-05] VITALS (40 sets, daily range): BP systolic 149–188; BP diastolic 84–103; PULSE 63–86; RESP 12–24; TEMP 37.4–37.9; O2SAT 93–99
[2022-07-05] MEDS: dexmedeTOMIDine 400 MCG/100 ML 400 MCG/100 ML BAG 43.2 MCG IV CONT (01:28)
[2022-07-05 02:39] LABS: Glucose Point of Care 124 mg/dl (65-105)
[2022-07-05] MEDS: MORPHINE SULFATE (*CRX) 2 MG/ML INJ IV PUSH (02:40)
[2022-07-05] MEDS: hydrALAZINE HCL 20 MG/ML VIAL IV PUSH (02:41)
[2022-07-05] MEDS: IPRATROPIUM BR 0.02% INH SOLN 0.5 MG/2.5 ML VIAL INHALATION ×4 (03:24→20:00)
[2022-07-05] MEDS: ALBUTEROL SULFATE NEB 2.5 MG/3 ML INH INHALATION ×4 (03:24→20:00)
[2022-07-05 05:41] LABS: Alveolar/Arterial O2 Gradient 96.4 mmHg; Base Excess ABG 2.8 mEq/l (+/-2.0); Carboxyhemoglobin 0.4 % THb (0-2.0); Fractional Inspired Oxygen 28 %; HCO3 ABG 25.7 mEq/l (22.0-26.0); Oxygen Content ABG 15.4 %vol (16.0-22.0); Oxygen Saturation ABG 94.2 % (95.0-100.0); Oxyhemoglobin 91.8 % THb (90.0-100.0); PCO2 ABG 33.6 mmHg (35.0-45.0); PO2 ABG 63.6 mmHg (80.0-100.0); PO2 FiO2 Ratio Arterial Blood 2.27 %; Reduced Hemoglobin 7.8 %THb (0-5.0); Total Hemoglobin 11.9 g/dL (12.0-18.0); pH ABG 7.501 (7.350-7.450)
[2022-07-05] MEDS: CENTRAL LINE FLUSH 10 ML IV PUSH ×4 (05:41→21:51)
[2022-07-05 05:42] LABS: Device NASAL CANNULA; Modified Allen's Test Pass; Site Drawn RIGHT RADIAL
[2022-07-05 07:07] LABS: Hematocrit 32.6 % (37.0-47.0); Hemoglobin 10.5 g/dL (12.0-15.0); Mean Corpuscular HGB Conc 32.2 g/dl (32-36); Mean Corpuscular Hemoglobin 30.3 pg (26-34); Mean Corpuscular Volume 93.9 fl (80-100); Mean Platelet Volume 10.3 fl (7.4-10.4); Platelet Count Result 229 k/mm3 (150-375); Red Blood Count 3.47 M/mm3 (4.2-5.4); Red Cell Distribution Width 15.4 % (11.5-14.5); White Blood Count 9.1 K/mm3 (4.5-10.0)
[2022-07-05 07:14] LABS: Alanine Aminotransferase 163 U/L (6-35); Albumin Level 4.2 g/dL (3.5-5.1); Alkaline Phosphatase 102 U/L (38-126); Anion Gap 8 mmol/L (8-16); Aspartate Amino Transferase 55 U/L (14-36); Blood Urea Nitrogen 24 mg/dL (7-17); Calcium 9.2 mg/dL (8.4-10.2); Carbon Dioxide 28 mmol/L (22-30); Chloride 101 mmol/L (98-107); Estimated CRCL calculation 61 ml/min; Estimated Glomerular Filt Rate 57; Glucose 98 mg/dL (65-110); Magnesium 1.5 mg/dL (1.6-2.3); Potassium 3.5 mmol/L (3.4-5.0); Sodium 137 mmol/L (137-145)
[2022-07-05] MEDS: AMIODARONE HCL 200 MG TABLET 400 MG PO (08:46)
[2022-07-05] MEDS: MAGNESIUM SULF 2 GM/WATER 50ML 2 GM/50 ML BAG IVPB (08:47)
[2022-07-05] MEDS: ASPIRIN 81 MG ENTERIC TABLET PO (08:47)
[2022-07-05] MEDS: POTASSIUM CHLORIDE 20 MEQ PACKET (FOR LIQUID) 40 MEQ PO (08:47)
[2022-07-05] MEDS: FONDAPARINUX SODIUM 2.5 MG/0.5 ML SYRINGE SUB-Q (08:47)
[2022-07-05] MEDS: PANTOPRAZOLE SODIUM IV 40 MG VIAL IV PUSH (08:47)
[2022-07-05] MEDS: QUEtiapine FUMARATE 25 MG TABLET PO ×2 (08:47→20:02)
[2022-07-05] MEDS: levETIRAcetam 500MG/NACL 100ML 500 MG/100 ML BAG 400 MG IVPB ×2 (08:47→20:06)
[2022-07-05] MEDS: CLOPIDOGREL BISULFATE 75 MG TABLET PO (08:47)
[2022-07-05] MEDS: ACETAMINOPHEN ELIXIR 325 MG/10.15 ML UDC 650 MG PO (08:48)
--- NOTE | 2022-07-05 09:18 | PM.PNCARD ---
Progress Note: A&P Assessment and Plan (1) Spontaneous dissection of coronary artery: Code(s): I25.42 - Coronary artery dissection Status: Acute Assessment and Plan: Spontaneous coronary dissection, cardiomyopathy, EF 20-25%. Continue medical management with ASA, Plavix. Continue GDMT. Will add back some carvedilol 6.25 mg p.o. b.i.d.. Depending on BP tolerance, will increase and add to this regimen including consideration Entresto rather than lisinopril Elevated LFTs are improving, if they continue to improve, would start high-intensity statin. (2) Polymorphic ventricular tachycardia: Code(s): I47.29 - Other ventricular tachycardia Status: Acute Assessment and Plan: Cardiac arrests, polymorphic VT. Last defibrillations were 06/29/2022 Continue oral amiodarone but will reduce to 200 mg p.o. b.i.d. EP eval on recovery. Will need at minimum a lifevest upon discharge if not a defibrillator placed (3) Acute respiratory failure: Code(s): J96.00 - Acute respiratory failure, unspecified whether with hypoxia or hypercapnia Status: Acute Assessment and Plan: Intubated (4) Acute renal failure: Code(s): N17.9 - Acute kidney failure, unspecified Status: Acute Assessment and Plan: Improving. (5) Shock: Code(s): R57.9 - Shock, unspecified Status: Acute Assessment and Plan: Off pressors. Subjective Date/time seen: 07/05/22 09:18 Interval history: Reason for visit: Cardiac arrest, cardiomyopathy, spontaneous coronary dissection. Date of service 06/28/2022: Patient had VT/VF cardiac arrest this morning. Taken to terrazzo laborer urgently (see cardiac cath report for full findings/details). Received 5 shocks on terrazzo laborer table for VT. Cath showing SCAD of the mid-distal LAD. Elevated LVEDP of 37mmHg. Patient is currently hemodynamically stable in the ICU. Amiodarone drip started in the terrazzo laborer. DOS 06/29/2022: Patient had polymorphic Vtach/VF this morning and required 2 shocks to restore sinus rhythm.? Otherwise no significant changes in her overall status.? Cont IV amio. DOS 06/30/2022:? Per RN followed some commands earlier.? No further VT/VF.? REmains on amio gtt, intubated and sedated.? Off and on low-dose levophed. ? SQ heparin changed to fondaparinux for DVT prophylaxis due to platelet count declining to 103K; heparin antibodies pending.? I's and O's yesterday 2550/4500.? DOS 07/02/2022: No acute events overnight.? No VT/VF since 06/29.? Off pressors.? DOS 07/03/2022: No acute events overnight. Remains stable. Still intubated. Not on pressors. DOS 07/04/2022: No acute events overnight. Patient is waking up. Hopefully will get extubated soon. Date of service 07/05/2022: Extubated yesterday. Agitated and anxious. No chest pain though shortness of breath Review of Systems Review of Systems: All systems reviewed & are unremarkable except as noted in HPI and below Constitutional: Constitutional: Denies body ache(s) Cardiovascular: Cardiovascular: Denies chest pain Respiratory: Respiratory: Denies cough Genitourinary: Genitourinary: Denies hematuria Psychiatric: Psychiatric: Reports anxiety Hematologic/Lymphatic: Hematologic/Lymphatic: Denies easy bleeding Exam Const: General: comfortable Other: Appears anxious HENMT: Face/Nose/Sinus: Normal nares present Mouth: Yes moist mucous membranes Eyes: Sclera: sclerae normal Neck: Neck: supple Resp: Effort & Inspection: normal respiratory effort Auscultation: diminished lung sounds Cardio: Rate: regular rate Rhythm: regular rhythm Heart sounds: no murmurs GI: GI Palp: Yes Soft to palpation Urinary Catheter: Urinary Catheter: other (Jay in place. ) Skin: General skin exam: normal color Other: Varicose veins in lower extremities noted Neuro: Speech: normal speech Extrem: General: no edema Psych: Affect: Anxious affect present Objective Da
[2022-07-05] MEDS: FUROSEMIDE 40 MG TABLET PO (09:39)
--- NOTE | 2022-07-05 11:03 | WPDNEUROLOGY ---
Neurology EEG Report General Information Date of Study: 06/28/22 TEST eeg DIAGNOSIS Seizure CONDITION OF RECORDING awake drowsy and sleep EEG NUMBER [id number] CLINICAL HISTORY patient is in ICU on a vent and heavily sedated subsequent to a cardiac arrest in the morning and does have history of seizures. EEG DESCRIPTION Old record consists of bihemispheric 5 to 7 hertz per 2nd poorly organized theta activity with no anterior-posterior gradient admixed with low-voltage 15 to 18 hertz per 2nd beta activity. Non paroxysmal. Nonfocal. Nonlateralizing. IMPRESSION Abnormal record due to the absence of a normal background rhythm, without evidence of any paroxysmal or focal slow activity. These abnormalities are suggestive of underlying organic or metabolic encephalopathy again clinical correlation recommended.
[2022-07-05] MEDS: LABETALOL HCL INJ 100 MG/20 ML VIAL 20 MG IV PUSH ×2 (11:30→16:24)
--- NOTE | 2022-07-05 11:34 | PCFNICU ---
ICU Rounding Note: Pt current nutrition is Minced and Moist,Level 5. Last recorded weight is 107.3 kg. Bowel Motility:No Bm reported. Labs Reviewed:Mg 1.5,GFR 57,BUN 24, HCt 32.6,Hgb 10.5 Meds Noted:Keppra, Vancomycin Skin: WNL Additional Notes: Diet order advanced to Minced and Moist, Level 5 per speech bedside swallow recommendations. Recommend diet supplement of Ensure compact BID for additional kcal and protein needs. Following daily in ICU rounds and reassessing every 5 days.
--- NOTE | 2022-07-05 11:59 | WPDINTPN ---
Progress Note: A&P Assessment and Plan (1) Acute respiratory failure: Code(s): J96.00 - Acute respiratory failure, unspecified whether with hypoxia or hypercapnia Status: Acute Assessment and Plan: Acute respiratory failure likely related to cardiac arrest -intubated on 06/27/2022 at the outside hospital -07/04 -extubated after a successful weaning trial -.on nasal cannula and denies any respiratory distress -PT OT, incentive spirometry -continue diuretics (2) Cardiac arrest: Code(s): I46.9 - Cardiac arrest, cause unspecified Status: Acute Assessment and Plan: Cardiac arrest of unknown etiology, EKG did not reveal ST-elevation NM, -mildly elevated 1st set of troponin, will repeat 3 hour and 6 hour troponin levels -discussed with Cardiology, will hold target temperature management at this time -patient completed heparin infusion for 48 hours for NSTEMI per cardiology 06/27: ECHO:? EF of 20-25%, akinesis of distal half of the ventricle consider Takotsubo's cardiomyopathy, grade 3 diastolic dysfunction mild mitral valve regurg, mild tricuspid valve regurg, moderate pulmonary hypertension with RVSP of 61 mmHg 06/28: Patient overnight had a cardiac arrest in the ICU VFib arrest status post CPR, epinephrine and defibrillation.? Patient was taken to the cardiac stucco laborer by operator receptionist, left main coronary artery was widely patent, lad proximal to mid LAD is patent and mild diffuse disease with obstructive disease admitted to distal portion of the LAD and has appearance of spontaneous coronary artery dissection (SCAD).? Left circumflex has mild disease.? Right coronary artery without any significant obstructive angiographic disease.? Patient went to VFib arrest requiring defibrillation x6 on the cath table -discussed with cardiology at length, conservative management at this time. -continue amiodarone infusion - cardiology following 06/29/2022 patient did have a brief run of VFib of 6-8 beats which spontaneously resolved, later in the morning patient went into sustained VFib and had to be defibrillated x2, amiodarone 150 IV x1 push was given with return to sinus rhythm Continue aspirin and Plavix Continue p.o. amiodarone (3) Shock: Code(s): R57.9 - Shock, unspecified Status: Acute Assessment and Plan: Patient in shock, post cardiac arrest could be related to septic versus cardiogenic -patient received 1.5 L IV fluids at the outside hospital -given admission L IV fluid bolus in the ICU here at [facility] -right IJ central line was inserted -patient been on and off Levophed, currently off since 06/30 p.m. -lactic acid has normalized -continue cefepime and vancomycin (06/27) for pneumonia for 7 days.? Added doxycycline on 06/28. Continue for 5 days -06/27/2022: Blood cultures negative x2 -06/27/2022: urine cultures no growth to date -06/27/2022: sputum cultures are negative -06/28/2022: MRSA screen negative - SARS-CoV-2 PCR, influenza a and B, RSV are all negative - urine Legionella negative and urine pneumococcal antigen pending -06/30: LFTs improving: Likely related to shock liver. Hepatitis panel shows positive antibody for hepatitis-C. PCR is pending -right upper quadrant ultrasound shows distended gallbladder gallbladder wall thickening and trace pericholecystic ascites but without visible gallstones or sonographic Thurman sign, these findings are indeterminate for acute cholecystitis -will continue to monitor LFTs which are improving (4) Acute renal failure: Code(s): N17.9 - Acute kidney failure, unspecified Status: Acute Assessment and Plan: Acute kidney injury, likely related to cardiac arrest, hypoxia, hypotension, shock. Creatinine on admission was 2.20 -patient was fluid-resuscitated and received bicarb infusion -urine lytes did not reflect prerenal picture -06/27/2022 renal ultrasound:? Unremarkable renal sonogram findings, no hydronephrosis -nephrolog
[2022-07-05] MEDS: HYDROcodone/acetaminophen (*CRX) 5-325 MG TABLET 1 TAB PO ×2 (16:23→20:07)
[2022-07-05] MEDS: AMIODARONE HCL 200 MG TABLET PO (20:02)
[2022-07-05] MEDS: carvediloL 6.25 MG TABLET PO (20:02)
[2022-07-05] MEDS: cloNIDine HCL 0.1 MG TABLET PO (20:06)
--- NOTE | 2022-07-05 22:33 | PC.NURSE ---
This patient, Roslyn Pardo, was transferred to [[id number] ] on 07/05/22 at 2220. Personal belongings sent with patient. Report given to [Josie MULLINS ]. Appropriate documentation sent with patient.
[2022-07-06] VITALS (26 sets, daily range): BP systolic 133–170; BP diastolic 55–86; PULSE 68–106; RESP 14–20; TEMP 36.3–37.2; O2SAT 95–100
[2022-07-06] MEDS: LABETALOL HCL INJ 100 MG/20 ML VIAL 20 MG IV PUSH (02:58)
[2022-07-06 05:16] LABS: Hematocrit 34.1 % (37.0-47.0); Mean Corpuscular HGB Conc 32.3 g/dl (32-36); Mean Corpuscular Volume 96.1 fl (80-100); Platelet Count Result 286 k/mm3 (150-375); Red Blood Count 3.55 M/mm3 (4.2-5.4); Red Cell Distribution Width 15.5 % (11.5-14.5); White Blood Count 8.6 K/mm3 (4.5-10.0)
[2022-07-06 05:30] LABS: Alanine Aminotransferase 138 U/L (6-35); Albumin Level 4.3 g/dL (3.5-5.1); Alkaline Phosphatase 127 U/L (38-126); Anion Gap 11 mmol/L (8-16); Aspartate Amino Transferase 54 U/L (14-36); Bilirubin,Total 1.3 mg/dL (0.2-1.3); Blood Urea Nitrogen 19 mg/dL (7-17); Calcium 9.1 mg/dL (8.4-10.2); Carbon Dioxide 30 mmol/L (22-30); Chloride 99 mmol/L (98-107); Estimated CRCL calculation 68 ml/min; Estimated Glomerular Filt Rate > 60; Glucose 96 mg/dL (65-110); Magnesium 1.9 mg/dL (1.6-2.3); Potassium 3.4 mmol/L (3.4-5.0); Sodium 140 mmol/L (137-145)
[2022-07-06] MEDS: CENTRAL LINE FLUSH 10 ML IV PUSH ×3 (05:44→20:44)
[2022-07-06] MEDS: LEVOTHYROXINE SODIUM 150 MCG TABLET PO (05:44)
[2022-07-06] MEDS: FONDAPARINUX SODIUM 2.5 MG/0.5 ML SYRINGE SUB-Q (08:37)
[2022-07-06] MEDS: QUEtiapine FUMARATE 25 MG TABLET PO ×2 (08:37→20:43)
[2022-07-06] MEDS: AMIODARONE HCL 200 MG TABLET PO ×2 (08:38→20:42)
[2022-07-06] MEDS: carvediloL 6.25 MG TABLET PO (08:39)
[2022-07-06] MEDS: CLOPIDOGREL BISULFATE 75 MG TABLET PO (08:40)
[2022-07-06] MEDS: lisinopriL 20 MG TABLET PO (08:40)
[2022-07-06] MEDS: PANTOPRAZOLE SODIUM IV 40 MG VIAL IV PUSH (08:41)
[2022-07-06] MEDS: ASPIRIN 81 MG ENTERIC TABLET PO (08:46)
[2022-07-06] MEDS: cloNIDine HCL 0.1 MG TABLET PO ×2 (08:46→20:43)
[2022-07-06] MEDS: IPRATROPIUM BR 0.02% INH SOLN 0.5 MG/2.5 ML VIAL INHALATION ×3 (09:07→20:45)
[2022-07-06] MEDS: ALBUTEROL SULFATE NEB 2.5 MG/3 ML INH INHALATION ×3 (09:07→20:45)
--- NOTE | 2022-07-06 09:50 | PM.IMPN ---
Progress Note: A&P Assessment and Plan (1) Acute respiratory failure: Code(s): J96.00 - Acute respiratory failure, unspecified whether with hypoxia or hypercapnia Status: Acute Assessment and Plan: Acute respiratory failure likely related to cardiac arrest -intubated on 06/27/2022 at the outside hospital -07/04 -extubated after a successful weaning trial -.on nasal cannula 2 L and denies any respiratory distress - -PT OT, incentive spirometry -continue diuretics (2) Cardiac arrest: Code(s): I46.9 - Cardiac arrest, cause unspecified Status: Acute Assessment and Plan: Cardiac arrest of unknown etiology, EKG did not reveal ST-elevation [place], -mildly elevated 1st set of troponin, will repeat 3 hour and 6 hour troponin levels -discussed with Cardiology, will hold target temperature management at this time -patient completed heparin infusion for 48 hours for NSTEMI per cardiology 06/27: ECHO:? EF of 20-25%, akinesis of distal half of the ventricle consider Takotsubo's cardiomyopathy, grade 3 diastolic dysfunction mild mitral valve regurg, mild tricuspid valve regurg, moderate pulmonary hypertension with RVSP of 61 mmHg 06/28: Patient overnight had a cardiac arrest in the ICU VFib arrest status post CPR, epinephrine and defibrillation.? Patient was taken to the cardiac laboratory chemist by kidney puller, left main coronary artery was widely patent, lad proximal to mid LAD is patent and mild diffuse disease with obstructive disease admitted to distal portion of the LAD and has appearance of spontaneous coronary artery dissection (SCAD).? Left circumflex has mild disease.? Right coronary artery without any significant obstructive angiographic disease.? Patient went to VFib arrest requiring defibrillation x6 on the cath table -discussed with cardiology at length, conservative management at this time. -continue amiodarone infusion - cardiology following 06/29/2022 patient did have a brief run of VFib of 6-8 beats which spontaneously resolved, later in the morning patient went into sustained VFib and had to be defibrillated x2, amiodarone 150 IV x1 push was given with return to sinus rhythm Continue aspirin and Plavix Continue p.o. amiodarone (3) Shock: Code(s): R57.9 - Shock, unspecified Status: Acute Assessment and Plan: Patient in shock, post cardiac arrest could be related to septic versus cardiogenic -patient received 1.5 L IV fluids at the outside hospital -given admission L IV fluid bolus in the ICU here at [facility] -right IJ central line was inserted -patient been on and off Levophed, currently off since 06/30 p.m. -lactic acid has normalized -continue cefepime and vancomycin (06/27) for pneumonia for 7 days.? Added doxycycline on 06/28. Continue for 5 days -06/27/2022: Blood cultures negative x2 -06/27/2022: urine cultures no growth to date -06/27/2022: sputum cultures are negative -06/28/2022: MRSA screen negative - SARS-CoV-2 PCR, influenza a and B, RSV are all negative - urine Legionella negative and urine pneumococcal antigen pending -06/30: LFTs improving: Likely related to shock liver. Hepatitis panel shows positive antibody for hepatitis-C. PCR is pending -right upper quadrant ultrasound shows distended gallbladder gallbladder wall thickening and trace pericholecystic ascites but without visible gallstones or sonographic Thurman sign, these findings are indeterminate for acute cholecystitis -will continue to monitor LFTs which are improving (4) Acute renal failure: Code(s): N17.9 - Acute kidney failure, unspecified Status: Acute Assessment and Plan: Acute kidney injury, resolved likely related to cardiac arrest, hypoxia, hypotension, shock. Creatinine on admission was 2.20 -patient was fluid-resuscitated and received bicarb infusion -urine lytes did not reflect prerenal picture -06/27/2022 renal ultrasound:? Unremarkable renal sonogram findings, no hydronephr
[2022-07-06 10:53] LABS: Triglycerides 118 mg/dL (<150)
[2022-07-06] MEDS: levETIRAcetam 500MG/NACL 100ML 500 MG/100 ML BAG 400 MG IVPB ×2 (11:00→20:43)
--- NOTE | 2022-07-06 11:11 | PM.PNCARD ---
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 Patient also has chronic opioid dependency. Lad was not occluded but had appearance suggestive of SCAD. Since extubation she has been placed back on medical therapy including carvedilol, lisinopril, clonidine and amiodarone. Rhythm has been stable for the last several days. Will advance carvedilol dosage as he is still moderately hypertensive. Long-term prognosis I think is guarded Chris Sanders MD [facility] Subjective Date/time seen: Date of service: 07/06/22 11:11 Interval history: Reason for visit: Cardiac arrest, cardiomyopathy, spontaneous coronary dissection. Date of service 06/28/2022: Patient had VT/VF cardiac arrest this morning. Taken to feed mill lab technician urgently (see cardiac cath report for full findings/details). Received 5 shocks on feed mill lab technician table for VT. Cath showing SCAD of the mid-distal LAD. Elevated LVEDP of 37mmHg. Patient is currently hemodynamically stable in the ICU. Amiodarone drip started in the feed mill lab technician. DOS 06/29/2022: Patient had polymorphic Vtach/VF this morning and required 2 shocks to restore sinus rhythm.? Otherwise no significant changes in her overall status.? Cont IV amio. DOS 06/30/2022:? Per RN followed some commands earlier.? No further VT/VF.? REmains on amio gtt, intubated and sedated.? Off and on low-dose levophed. ? SQ heparin changed to fondaparinux for DVT prophylaxis due to platelet count declining to 103K; heparin antibodies pending.? I's and O's yesterday 2550/4500.? DOS 07/02/2022: No acute events overnight.? No VT/VF since 06/29.? Off pressors.? DOS 07/03/2022: No acute events overnight. Remains stable. Still intubated. Not on pressors. DOS 07/04/2022: No acute events overnight. Patient is waking up. Hopefully will get extubated soon. Date of service 07/05/2022: Extubated yesterday. Agitated and anxious. No chest pain though shortness of breath Date of service 07/06/2022: Patient moved to IMU yesterday. Remains somewhat agitated and somewhat incoherent does not answer questions appropriately.? Encephalopathy? Remains hypertensive despite current medical regimen. No chest pain no dyspnea. Sitter is in with the patient Exam Const: General: comfortable Other: Patient at bed rest in room 231 appears to be somewhat agitated HENMT: Face/Nose/Sinus: Normal nares present Mouth: Yes moist mucous membranes Other: OETT in place Eyes: Sclera: sclerae normal Neck: Neck: supple Resp: Effort & Inspection: normal respiratory effort Auscultation: diminished lung sounds Other: On mechanical ventilation via OETT. Decreased breath sounds at bases. Cardio: Rate: regular rate Rhythm: regular rhythm Heart sounds: no murmurs Urinary Catheter: Urinary Catheter: other (Jay in place. ) Skin: General skin exam: normal color Other: Varicose veins in lower extremities noted Neuro: Speech: normal speech Other: Wakes up when name is called. Shakes her head yes or no when asked questions. Extrem: General: no edema Psych: Affect: Anxious affect present Other: Sedated Objective Data Vital Signs Vital Signs: Vital Signs - 24 hr 07/05/22 11:30 07/05/22 11:34 07/05/22 12:00 Temperature Pulse Rate 79 Respiratory Rate Blood Pressure Pulse Oximetry 97 Oxygen Delivery Nasal Cannula Nasal Cannula Oxygen Flow Rate 4 2 07/05/22 12:00 07/05/22 12:00 07/05/22 14:00 Temperature 37.9 C H Pulse Rate 70 77 82 Respiratory Rate 18 Blood Pressure 188/94 H Pulse Oximetry 96 Oxygen Delivery Oxyg
[2022-07-06] MEDS: ACETAMINOPHEN ELIXIR 325 MG/10.15 ML UDC 650 MG PO (14:19)
[2022-07-06] MEDS: carvediloL 12.5 MG TABLET PO (20:43)
[2022-07-06] MEDS: HYDROcodone/acetaminophen (*CRX) 5-325 MG TABLET 1 TAB PO (20:47)
[2022-07-07] VITALS (24 sets, daily range): BP systolic 114–142; BP diastolic 51–75; PULSE 64–88; RESP 14–22; TEMP 36.5–37.1; O2SAT 90–97
[2022-07-07] MEDS: HYDROcodone/acetaminophen (*CRX) 5-325 MG TABLET 1 TAB PO ×3 (01:34→15:34)
[2022-07-07] MEDS: ALBUTEROL SULFATE NEB 2.5 MG/3 ML INH INHALATION ×4 (03:20→21:43)
[2022-07-07] MEDS: IPRATROPIUM BR 0.02% INH SOLN 0.5 MG/2.5 ML VIAL INHALATION ×4 (03:20→21:43)
[2022-07-07] MEDS: CENTRAL LINE FLUSH 10 ML IV PUSH ×4 (06:18→21:31)
[2022-07-07] MEDS: CENTRAL LINE FLUSH 20 ML IV PUSH (06:18)
[2022-07-07] MEDS: LEVOTHYROXINE SODIUM 150 MCG TABLET PO (06:19)
[2022-07-07 06:52] LABS: Hemoglobin 10.2 g/dL (12.0-15.0); Mean Corpuscular HGB Conc 31.9 g/dl (32-36); Mean Corpuscular Hemoglobin 30.5 pg (26-34); Mean Corpuscular Volume 95.8 fl (80-100); Mean Platelet Volume 10.1 fl (7.4-10.4); Platelet Count Result 302 k/mm3 (150-375); Red Blood Count 3.34 M/mm3 (4.2-5.4); Red Cell Distribution Width 15.2 % (11.5-14.5)
[2022-07-07 07:02] LABS: Alanine Aminotransferase 101 U/L (6-35); Albumin Level 3.8 g/dL (3.5-5.1); Alkaline Phosphatase 114 U/L (38-126); Anion Gap 6 mmol/L (8-16); Aspartate Amino Transferase 47 U/L (14-36); Bilirubin,Total 0.9 mg/dL (0.2-1.3); Blood Urea Nitrogen 20 mg/dL (7-17); Calcium 8.9 mg/dL (8.4-10.2); Carbon Dioxide 32 mmol/L (22-30); Chloride 104 mmol/L (98-107); Estimated CRCL calculation 68 ml/min; Estimated Glomerular Filt Rate > 60; Glucose 84 mg/dL (65-110); Magnesium 1.9 mg/dL (1.6-2.3); Potassium 3.4 mmol/L (3.4-5.0); Sodium 142 mmol/L (137-145)
[2022-07-07] MEDS: carvediloL 12.5 MG TABLET PO ×2 (08:01→21:30)
[2022-07-07] MEDS: ASPIRIN 81 MG ENTERIC TABLET PO (08:01)
[2022-07-07] MEDS: FONDAPARINUX SODIUM 2.5 MG/0.5 ML SYRINGE SUB-Q (08:01)
[2022-07-07] MEDS: lisinopriL 20 MG TABLET PO (08:02)
[2022-07-07] MEDS: cloNIDine HCL 0.1 MG TABLET PO ×2 (08:02→21:30)
[2022-07-07] MEDS: CLOPIDOGREL BISULFATE 75 MG TABLET PO (08:02)
[2022-07-07] MEDS: AMIODARONE HCL 200 MG TABLET PO ×2 (08:03→21:30)
[2022-07-07] MEDS: PANTOPRAZOLE SODIUM IV 40 MG VIAL IV PUSH (08:03)
--- NOTE | 2022-07-07 08:38 | PM.IMPN ---
Progress Note: A&P Assessment and Plan (1) Acute respiratory failure: Code(s): J96.00 - Acute respiratory failure, unspecified whether with hypoxia or hypercapnia Status: Acute Assessment and Plan: Acute respiratory failure likely related to cardiac arrest, resolves patient is on room air. -intubated on 06/27/2022 at the outside hospital -07/04 -extubated after a successful weaning trial -.on Room air - -PT OT, incentive spirometry -continue diuretics (2) Cardiac arrest: Code(s): I46.9 - Cardiac arrest, cause unspecified Status: Acute Assessment and Plan: Cardiac arrest of unknown etiology, EKG did not reveal ST-elevation [place], -mildly elevated 1st set of troponin, will repeat 3 hour and 6 hour troponin levels -discussed with Cardiology, will hold target temperature management at this time -patient completed heparin infusion for 48 hours for NSTEMI per cardiology 06/27: ECHO:? EF of 20-25%, akinesis of distal half of the ventricle consider Takotsubo's cardiomyopathy, grade 3 diastolic dysfunction mild mitral valve regurg, mild tricuspid valve regurg, moderate pulmonary hypertension with RVSP of 61 mmHg 06/28: Patient overnight had a cardiac arrest in the ICU VFib arrest status post CPR, epinephrine and defibrillation.? Patient was taken to the cardiac salvage laborer by contract runner, left main coronary artery was widely patent, lad proximal to mid LAD is patent and mild diffuse disease with obstructive disease admitted to distal portion of the LAD and has appearance of spontaneous coronary artery dissection (SCAD).? Left circumflex has mild disease.? Right coronary artery without any significant obstructive angiographic disease.? Patient went to VFib arrest requiring defibrillation x6 on the cath table -discussed with cardiology at length, conservative management at this time. -continue amiodarone infusion - cardiology following 06/29/2022 patient did have a brief run of VFib of 6-8 beats which spontaneously resolved, later in the morning patient went into sustained VFib and had to be defibrillated x2, amiodarone 150 IV x1 push was given with return to sinus rhythm Continue aspirin and Plavix Continue p.o. amiodarone (3) Shock: Code(s): R57.9 - Shock, unspecified Status: Acute Assessment and Plan: Patient in shock, post cardiac arrest could be related to septic versus cardiogenic, resolved. -patient received 1.5 L IV fluids at the outside hospital -given admission L IV fluid bolus in the ICU here at [facility] -right IJ central line was inserted -patient been on and off Levophed, currently off since 06/30 p.m. -lactic acid has normalized -continue cefepime and vancomycin (06/27) for pneumonia for 7 days.? Added doxycycline on 06/28. Continue for 5 days -06/27/2022: Blood cultures negative x2 -06/27/2022: urine cultures no growth to date -06/27/2022: sputum cultures are negative -06/28/2022: MRSA screen negative - SARS-CoV-2 PCR, influenza a and B, RSV are all negative - urine Legionella negative and urine pneumococcal antigen pending -06/30: LFTs improving: Likely related to shock liver. Hepatitis panel shows positive antibody for hepatitis-C. PCR is pending -right upper quadrant ultrasound shows distended gallbladder gallbladder wall thickening and trace pericholecystic ascites but without visible gallstones or sonographic Thurman sign, these findings are indeterminate for acute cholecystitis - Liver function tests continue to improve with total bili down to 0.9, AST down to 47 from 54, ALT down to 101 [id number], alk-phos down to 114 from 127. (4) Acute renal failure: Code(s): N17.9 - Acute kidney failure, unspecified Status: Acute Assessment and Plan: Acute kidney injury, resolved likely related to cardiac arrest, hypoxia, hypotension, shock. Creatinine on admission was 2.20. On today's lab creatinine 0.9. -patient was fluid-resuscitated and received bicarb i
[2022-07-07] MEDS: levETIRAcetam 500MG/NACL 100ML 500 MG/100 ML BAG 400 MG IVPB ×2 (09:22→21:29)
--- NOTE | 2022-07-07 11:28 | ECG_ITS ---
Measurements Intervals [place] Rate: 72 P: -18 [place]: 118 QRS: 55 QRSD: 96 T: 155 QT: 500 QTc: 549 Interpretive Statements SINUS RHYTHM WITH SHORT [place] INTERVAL MODERATE T-WAVE ABNORMALITY, CONSIDER ANTEROLATERAL ISCHEMIA ABNORMAL ECG COMPARED TO ECG 06/28/2022 04:14:24 RIGHT BUNDLE-BRANCH BLOCK NO LONGER APPRECIATED. SUSPICION FOR ANTERIOR INFARCTION NO LONGER APPRECIATED. Electronically Signed On 07-07-2022 13:44:19 TYPIST by Nguyễn Palencia M.D.
--- NOTE | 2022-07-07 11:29 | PM.PNCARD ---
Progress Note: A&P Assessment and Plan (1) Spontaneous dissection of coronary artery: Code(s): I25.42 - Coronary artery dissection Status: Acute Assessment and Plan: Stable. Continue aspirin, clopidogrel, carvedilol. (2) Cardiac arrest: Code(s): I46.9 - Cardiac arrest, cause unspecified Status: Acute Assessment and Plan: As above. No intervention required on left heart catheterization. Aggressive medical management. Continue amiodarone and beta-sagar for VT stable without recurrence. (3) Cardiomyopathy: Code(s): I42.9 - Cardiomyopathy, unspecified Status: Acute Assessment and Plan: Severe LV systolic dysfunction EF 20-25%, compensated. Diuretics as warranted. (4) Atypical chest pain: Code(s): R07.89 - Other chest pain Status: Acute Assessment and Plan: Atypical, reproducible right-sided chest wall musculoskeletal pain worse with coughing, movement and deep breathing. repeat 12 lead EKG. Pain control is appropriate. (5) CAD (coronary artery disease): Code(s): I25.10 - Atherosclerotic heart disease of [place] coronary artery without angina pectoris Status: Acute Assessment and Plan: Continue aggressive medical management and risk factor modification. Continue statin, aspirin, clopidogrel, beta-sagar. (6) Polymorphic ventricular tachycardia: Code(s): I47.29 - Other ventricular tachycardia Status: Acute Assessment and Plan: EP evaluation as an outpatient. Continue telemetry and beta-sagar therapy. Monitor electrolytes closely. Keep potassium around 4.0 magnesium around 2.0. Consider life vest at discharge. (7) Hypertension: Code(s): I10 - Essential (primary) hypertension Status: Acute Assessment and Plan: Stable on medical therapy. (8) Drug addiction: Code(s): F19.20 - Other psychoactive substance dependence, uncomplicated Status: Acute Assessment and Plan: Per primary service. Subjective Date/time seen: Date of service: 07/07/22 11:29 Interval history: Reason for visit: Cardiac arrest, cardiomyopathy, spontaneous coronary dissection. Date of service 06/28/2022: Patient had VT/VF cardiac arrest this morning. Taken to labor relations officer urgently (see cardiac cath report for full findings/details). Received 5 shocks on labor relations officer table for VT. Cath showing SCAD of the mid-distal LAD. Elevated LVEDP of 37mmHg. Patient is currently hemodynamically stable in the ICU. Amiodarone drip started in the labor relations officer. DOS 06/29/2022: Patient had polymorphic Vtach/VF this morning and required 2 shocks to restore sinus rhythm.? Otherwise no significant changes in her overall status.? Cont IV amio. DOS 06/30/2022:? Per RN followed some commands earlier.? No further VT/VF.? REmains on amio gtt, intubated and sedated.? Off and on low-dose levophed. ? SQ heparin changed to fondaparinux for DVT prophylaxis due to platelet count declining to 103K; heparin antibodies pending.? I's and O's yesterday 2550/4500.? DOS 07/02/2022: No acute events overnight.? No VT/VF since 06/29.? Off pressors.? DOS 07/03/2022: No acute events overnight. Remains stable. Still intubated. Not on pressors. DOS 07/04/2022: No acute events overnight. Patient is waking up. Hopefully will get extubated soon. Date of service 07/05/2022: Extubated yesterday. Agitated and anxious. No chest pain though shortness of breath Date of service 07/06/2022: Patient moved to IMU yesterday. Remains somewhat agitated and somewhat incoherent does not answer questions appropriately.? Encephalopathy? Remains hypertensive despite current medical regimen. No chest pain no dyspnea. Sitter is in with the patient Date of service 07/07/2022: No new issues overnight, however, this morning patient weighed of sharp right-sided chest pain over the right rib cage under her axilla worse with deep breathing, coughing and palpation of the right miguelangel
[2022-07-07] MEDS: QUEtiapine FUMARATE 25 MG TABLET PO (21:30)
[2022-07-08] VITALS (14 sets, daily range): BP systolic 108–152; BP diastolic 50–82; PULSE 68–87; RESP 16–20; TEMP 36.3–36.6; O2SAT 92–100
[2022-07-08] MEDS: IPRATROPIUM BR 0.02% INH SOLN 0.5 MG/2.5 ML VIAL INHALATION ×2 (02:42→07:49)
[2022-07-08] MEDS: ALBUTEROL SULFATE NEB 2.5 MG/3 ML INH INHALATION ×2 (02:42→07:49)
[2022-07-08] MEDS: CENTRAL LINE FLUSH 10 ML IV PUSH ×4 (06:37→20:20)
[2022-07-08] MEDS: LEVOTHYROXINE SODIUM 150 MCG TABLET PO (06:38)
[2022-07-08] MEDS: levETIRAcetam 500MG/NACL 100ML 500 MG/100 ML BAG 400 MG IVPB (08:54)
[2022-07-08] MEDS: carvediloL 12.5 MG TABLET PO ×2 (08:54→20:19)
[2022-07-08] MEDS: cloNIDine HCL 0.1 MG TABLET PO ×2 (08:54→20:20)
[2022-07-08] MEDS: lisinopriL 20 MG TABLET PO (08:55)
[2022-07-08] MEDS: PANTOPRAZOLE SODIUM IV 40 MG VIAL IV PUSH (08:55)
[2022-07-08] MEDS: FONDAPARINUX SODIUM 2.5 MG/0.5 ML SYRINGE SUB-Q (08:55)
[2022-07-08] MEDS: ASPIRIN 81 MG ENTERIC TABLET PO (08:55)
[2022-07-08] MEDS: CLOPIDOGREL BISULFATE 75 MG TABLET PO (08:55)
[2022-07-08] MEDS: AMIODARONE HCL 200 MG TABLET PO ×2 (08:55→20:19)
[2022-07-08] MEDS: QUEtiapine FUMARATE 25 MG TABLET PO ×2 (08:55→20:20)
--- NOTE | 2022-07-08 13:54 | PM.IMPN ---
Progress Note: A&P Assessment and Plan (1) Acute respiratory failure: Code(s): J96.00 - Acute respiratory failure, unspecified whether with hypoxia or hypercapnia Status: Acute Assessment and Plan: Acute respiratory failure likely related to cardiac arrest, resolves patient is on room air. -intubated on 06/27/2022 at the outside hospital -07/04 -extubated after a successful weaning trial -.on Room air - -PT OT, incentive spirometry -continue diuretics (2) Cardiac arrest: Code(s): I46.9 - Cardiac arrest, cause unspecified Status: Acute Assessment and Plan: Cardiac arrest of unknown etiology, EKG did not reveal ST-elevation [place], -mildly elevated 1st set of troponin, will repeat 3 hour and 6 hour troponin levels -discussed with Cardiology, will hold target temperature management at this time -patient completed heparin infusion for 48 hours for NSTEMI per cardiology 06/27: ECHO:? EF of 20-25%, akinesis of distal half of the ventricle consider Takotsubo's cardiomyopathy, grade 3 diastolic dysfunction mild mitral valve regurg, mild tricuspid valve regurg, moderate pulmonary hypertension with RVSP of 61 mmHg 06/28: Patient overnight had a cardiac arrest in the ICU VFib arrest status post CPR, epinephrine and defibrillation.? Patient was taken to the cardiac center medical and lab director by manufacturers representative, left main coronary artery was widely patent, lad proximal to mid LAD is patent and mild diffuse disease with obstructive disease admitted to distal portion of the LAD and has appearance of spontaneous coronary artery dissection (SCAD).? Left circumflex has mild disease.? Right coronary artery without any significant obstructive angiographic disease.? Patient went to VFib arrest requiring defibrillation x6 on the cath table -discussed with cardiology at length, conservative management at this time. -continue amiodarone infusion - cardiology following 06/29/2022 patient did have a brief run of VFib of 6-8 beats which spontaneously resolved, later in the morning patient went into sustained VFib and had to be defibrillated x2, amiodarone 150 IV x1 push was given with return to sinus rhythm Continue aspirin and Plavix Continue p.o. amiodarone (3) Shock: Code(s): R57.9 - Shock, unspecified Status: Acute Assessment and Plan: Resolved (4) Acute renal failure: Code(s): N17.9 - Acute kidney failure, unspecified Status: Acute Assessment and Plan: Labs are at baseline. (5) Encephalopathy: Code(s): G93.40 - Encephalopathy, unspecified Status: Acute Assessment and Plan: Much improved (6) Seizures: Code(s): R56.9 - Unspecified convulsions Status: Acute Assessment and Plan: Switch her IV Keppra to oral. (7) Hypertension: Code(s): I10 - Essential (primary) hypertension Status: Acute Assessment and Plan: Continue Coreg Continue lisinopril (8) Psoriasis: Code(s): L40.9 - Psoriasis, unspecified Status: Acute Assessment and Plan: History of psoriasis, on Humira injections and methotrexate, will hold -she is not on any steroids according the family (9) Thrombocytopenia: Code(s): D69.6 - Thrombocytopenia, unspecified Status: Acute Assessment and Plan: Thrombocytopenia has resolved with platelet count of 286. -thrombocytopenia can be multifactorial, secondary to shock, HIT, bone marrow suppression - HIT antibodies and serotonin release assay pending -will discontinue heparin subQ -on fondaparinux for DVT prophylaxis -platelets improving (10) Delirium: Code(s): R41.0 - Disorientation, unspecified Status: Acute Assessment and Plan: Off Precedex At low-dose Seroquel (11) Electrolyte abnormality: Code(s): E87.8 - Other disorders of electrolyte and fluid balance, not elsewhere classified Status: Acute Assessment and Plan: Replace low magnesium and potas
[2022-07-08] MEDS: levETIRAcetam 500 MG TABLET PO (20:20)
[2022-07-09] VITALS (9 sets, daily range): BP systolic 116–141; BP diastolic 56–73; PULSE 71–79; RESP 18; TEMP 36.4–37.1; O2SAT 93–96
[2022-07-09 04:53] LABS: Estimated CRCL calculation 68 ml/min; Estimated Glomerular Filt Rate > 60
[2022-07-09] MEDS: CENTRAL LINE FLUSH 10 ML IV PUSH ×3 (05:52→18:49)
[2022-07-09] MEDS: LEVOTHYROXINE SODIUM 150 MCG TABLET PO (05:52)
[2022-07-09] MEDS: levETIRAcetam 500 MG TABLET PO ×2 (09:19→20:13)
[2022-07-09] MEDS: AMIODARONE HCL 200 MG TABLET PO ×2 (09:19→20:12)
[2022-07-09] MEDS: CLOPIDOGREL BISULFATE 75 MG TABLET PO (09:19)
[2022-07-09] MEDS: cloNIDine HCL 0.1 MG TABLET PO ×2 (09:19→20:12)
[2022-07-09] MEDS: carvediloL 12.5 MG TABLET PO ×2 (09:19→20:13)
[2022-07-09] MEDS: ASPIRIN 81 MG ENTERIC TABLET PO (09:19)
[2022-07-09] MEDS: QUEtiapine FUMARATE 25 MG TABLET PO ×2 (09:20→20:12)
[2022-07-09] MEDS: lisinopriL 20 MG TABLET PO (09:20)
[2022-07-09] MEDS: FONDAPARINUX SODIUM 2.5 MG/0.5 ML SYRINGE SUB-Q (09:20)
[2022-07-09] MEDS: PANTOPRAZOLE SODIUM IV 40 MG VIAL IV PUSH (09:20)
--- NOTE | 2022-07-09 11:38 | PM.PNCARD ---
Progress Note: A&P Assessment and Plan (1) Spontaneous dissection of coronary artery: Code(s): I25.42 - Coronary artery dissection Status: Acute Assessment and Plan: Stable. Continue aspirin, clopidogrel, carvedilol. (2) Cardiac arrest: Code(s): I46.9 - Cardiac arrest, cause unspecified Status: Acute Assessment and Plan: As above. No intervention required on left heart catheterization. Aggressive medical management. Continue amiodarone and beta-sagar for VT stable without recurrence. History of VT/VF status post defibrillations. Patient remains at high risk for recurrence with severe LV systolic dysfunction EF 20-25% presenting with acute coronary event and VT VF status post defibrillations. I discussed in detail with regards to limitations and benefits of life vest for risk reduction for sudden cardiac due to ventricular tachycardia and or ventricular fibrillation and severe LV dysfunction EF 20-25%. Patient verbalized understanding and agreed with life vest for reduction risk. We discussed plans in indications for ICD which is not performed at this hospital. LifeVest to provide protection in the interval prior to ICD implantation by electrophysiology. Patient verbalized understanding and agreed with plan of care. She will require LifeVest fitting prior to discharge. Patient stable for discharge after LifeVest from cardiac perspective. Disposition per hospitalist service. Follow-up with Dr. Freeman in our office in 2 weeks upon discharge. (3) Cardiomyopathy: Code(s): I42.9 - Cardiomyopathy, unspecified Status: Acute Assessment and Plan: Severe LV systolic dysfunction EF 20-25%, compensated and is not requiring diuretics at this time. Monitor volume status. (4) Atypical chest pain: Code(s): R07.89 - Other chest pain Status: Acute Assessment and Plan: Atypical, reproducible right-sided chest wall musculoskeletal pain worse with coughing, movement and deep breathing. repeat 12 lead EKG. Pain control is appropriate. (5) CAD (coronary artery disease): Code(s): I25.10 - Atherosclerotic heart disease of [place] coronary artery without angina pectoris Status: Acute Assessment and Plan: Continue aggressive medical management and risk factor modification. Continue statin, aspirin, clopidogrel, beta-sagar. Recommend resumption of statin therapy although concern secondary to elevated LFTs most likely in setting of VT/VF and shock which has subsequently resolved. Resume at 20 mg at bedtime, check LFTs in 1 week as an outpatient. Goal LDL less than 70. (6) Polymorphic ventricular tachycardia: Code(s): I47.29 - Other ventricular tachycardia Status: Acute Assessment and Plan: EP evaluation as an outpatient. Continue telemetry and beta-sagar therapy. Monitor electrolytes closely. Keep potassium around 4.0 magnesium around 2.0. Life vest as above prior to discharge. Patient in agreement. (7) Hypertension: Code(s): I10 - Essential (primary) hypertension Status: Acute Assessment and Plan: Stable on medical therapy. (8) Drug addiction: Code(s): F19.20 - Other psychoactive substance dependence, uncomplicated Status: Acute Assessment and Plan: Per primary service. Subjective Date/time seen: Date of service: 07/09/22 11:38 Interval history: Reason for visit: Cardiac arrest, cardiomyopathy, spontaneous coronary dissection. Date of service 06/28/2022: Patient had VT/VF cardiac arrest this morning. Taken to laborer wharf urgently (see cardiac cath report for full findings/details). Received 5 shocks on laborer wharf table for VT. Cath showing SCAD of the mid-distal LAD. Elevated LVEDP of 37mmHg. Patient is currently hemodynamically stable in the ICU. Amiodarone drip started in the laborer wharf. DOS 06/29/2022: Patient had polymorphic Vtach/VF this morning and required 2 shocks to restore sin
--- NOTE | 2022-07-09 13:18 | PM.DS ---
DS: Admitting Diagnosis Discharge Date July 09, 2022 Admitting Diagnosis Cardiac arrest Cardiomyopathy EF 20% chronic DS: Discharge Diagnosis Discharge Diagnosis (1) Acute respiratory failure: Code(s): J96.00 - Acute respiratory failure, unspecified whether with hypoxia or hypercapnia Status: Acute Assessment and Plan: Acute respiratory failure likely related to cardiac arrest, resolves patient is on room air. -intubated on 06/27/2022 at the outside hospital -07/04 -extubated after a successful weaning trial -.on Room air - -PT OT, incentive spirometry -continue diuretics (2) Cardiac arrest: Code(s): I46.9 - Cardiac arrest, cause unspecified Status: Acute Assessment and Plan: Cardiac arrest of unknown etiology, EKG did not reveal ST-elevation MN, -mildly elevated 1st set of troponin, will repeat 3 hour and 6 hour troponin levels -discussed with Cardiology, will hold target temperature management at this time -patient completed heparin infusion for 48 hours for NSTEMI per cardiology 06/27: ECHO:? EF of 20-25%, akinesis of distal half of the ventricle consider Takotsubo's cardiomyopathy, grade 3 diastolic dysfunction mild mitral valve regurg, mild tricuspid valve regurg, moderate pulmonary hypertension with RVSP of 61 mmHg 06/28: Patient overnight had a cardiac arrest in the ICU VFib arrest status post CPR, epinephrine and defibrillation.? 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 Left circumflex has mild disease.? Right coronary artery without any significant obstructive angiographic disease.? Patient went to VFib arrest requiring defibrillation x6 on the cath table -discussed with cardiology at length, conservative management at this time. -continue amiodarone infusion - cardiology following 06/29/2022 patient did have a brief run of VFib of 6-8 beats which spontaneously resolved, later in the morning patient went into sustained VFib and had to be defibrillated x2, amiodarone 150 IV x1 push was given with return to sinus rhythm Continue aspirin and Plavix Continue p.o. amiodarone (3) Shock: Code(s): R57.9 - Shock, unspecified Status: Acute Assessment and Plan: Resolved (4) Acute renal failure: Code(s): N17.9 - Acute kidney failure, unspecified Status: Acute Assessment and Plan: Labs are at baseline. (5) Encephalopathy: Code(s): G93.40 - Encephalopathy, unspecified Status: Acute Assessment and Plan: Much improved (6) Seizures: Code(s): R56.9 - Unspecified convulsions Status: Acute Assessment and Plan: Switch her IV Keppra to oral. (7) Hypertension: Code(s): I10 - Essential (primary) hypertension Status: Acute Assessment and Plan: Continue Coreg Continue lisinopril (8) Psoriasis: Code(s): L40.9 - Psoriasis, unspecified Status: Acute Assessment and Plan: History of psoriasis, on Humira injections and methotrexate, will hold -she is not on any steroids according the family (9) Thrombocytopenia: Code(s): D69.6 - Thrombocytopenia, unspecified Status: Acute Assessment and Plan: Thrombocytopenia has resolved with platelet count of 286. -thrombocytopenia can be multifactorial, secondary to shock, HIT, bone marrow suppression - HIT antibodies and serotonin release assay pending -will discontinue heparin subQ -on fondaparinux for DVT prophylaxis -platelets improving (10) Delirium: Code(s): R41.0 - Disorientation, unspecified Status: Acute Assessment and Plan: Off Precedex At low-dose Seroquel (11) Electrolyte abnormality: Code(s): E87.8 - Other disorders of azul
--- NOTE | 2022-07-09 13:23 | PCNFU ---
Nutrition Follow-Up Complete: Goal:Meet estimated nutritional needs. Pt is meeting goal. Pt current nutrition is heart healthy, minced and moist level 5, Ensure compact BID. Nutrition recommendation: Continue with current plan of care. Last recorded weight is 110 kg - stable at this time. Bowel Motility: no BM recorded at this time Labs Reviewed: BUN:20 Meds Noted: heparin, protonix Skin: WNL Additional Notes: Pt continues on a level 5 heart healthy diet, intake good at 50-100%. Ensure compact BID in place. Possible discharge today. Monitor intake, wt, labs. Follow up in 7 days.
== END 2022-07-09 20:47 | disposition other institution (70) | DRG 286 ==
LOC: ANHICU 06-29 10:28 → ANHIMU 07-05 22:33
PROVIDERS: Internal Medicine; Nurse Practitioner; Admitting Provider Internal Medicine; PCP Physician Assistant; Visit Provider Chiropractor
PROC: 4A023N7 Measurement of Cardiac Sampling and Pressure, Left Heart, Percutaneous Approach (ICD-10-PCS; CPT 93452; principal; 2022-06-28 05:00)
PROC: 4A023N7 Measurement of Cardiac Sampling and Pressure, Left Heart, Percutaneous Approach (ICD-10-PCS; 2022-06-28 05:00)
PROC: 4A023N7 Measurement of Cardiac Sampling and Pressure, Left Heart, Percutaneous Approach (ICD-10-PCS; 2022-06-28 05:00)
DX: I46.9 Cardiac arrest, cause unspecified (principal); J96.01 Acute respiratory failure with hypoxia; R57.9 Shock, unspecified; N17.9 Acute kidney failure, unspecified; F19.20 Other psychoactive substance dependence, uncomplicated; G93.49 Other encephalopathy; J90 Pleural effusion, not elsewhere classified; Z68.42 Body mass index [BMI] 45.0-49.9, adult; E66.9 Obesity, unspecified; R56.9 Unspecified convulsions; M06.9 Rheumatoid arthritis, unspecified; R73.03 Prediabetes; E78.5 Hyperlipidemia, unspecified; I10 Essential (primary) hypertension; L40.9 Psoriasis, unspecified; I47.20 Ventricular tachycardia, unspecified; D69.6 Thrombocytopenia, unspecified; Z20.822 Contact with and (suspected) exposure to COVID-19
CPT/HCPCS: 32555; 33967; 36415; 36600; 70450; 71045; 71250; 76705; 76775; 80048; 80053; 80074; 80202; 80307; 82140; 82375; 82436; 82550; 82565; 82570; 82607; 82746; 82805; 82948; 83036; 83050; 83540; 83550; 83605; 83735; 84100; 84133; 84145; 84146; 84300; 84443; 84478; 84484; 85025; 85027; 85055; 85610; 85730; 85999; 86022; 86140; 87040; 87070; 87081; 87086; 87205; 87449; 87502; 87522; 87634; 87899; 92610; 92950; 93005; 93306; 93458; 94002; 94003; 94640; 95816; 97110; 97161; 97165; 97530; 97535; A9270; C1751; C1760; C1769; C1887; C1894; C8929; C9113; G0269; J0131; J0171; J0282; J0360; J0610; J0692; J1644; J1652; J1815; J1940; J1953; J2060; J2250; J2270; J2704; J3010; J3370; J3475; J3480; J7030; J7040; L1830; P9047; Q9957; U0003; U0005

== ENCOUNTER 2022-08-06 12:52 | Outpatient (NON) | payer MEDICARE, MEDICAID, SELFPAY ==
[2022-08-06 13:23] LABS: Anion Gap 9 mmol/L (8-16); Blood Urea Nitrogen 10 mg/dL (7-17); Calcium 8.8 mg/dL (8.4-10.2); Carbon Dioxide 28 mmol/L (22-30); Chloride 98 mmol/L (98-107); Estimated Glomerular Filt Rate 36; Glucose 77 mg/dL (65-110); Potassium 3.1 mmol/L (3.4-5.0); Sodium 135 mmol/L (137-145)
[2022-08-06 13:29] LABS: Add Urine Microscopic? YES; Appearance Urine Clear (Clear); Bilirubin Urine Negative (Negative); Blood Urine Negative (Negative); Color Urine Yellow (Yellow); Glucose Urine UA Negative (Negative); Ketones Urine Negative (Negative); Leukocyte Esterase Ur Trace LEU/UL (Negative); Nitrate Urine Negative (Negative); Protein Urine Negative (Negative); Urobilinogen Urine 0.2 mg/dL (<2.0)
[2022-08-06 13:34] LABS: Bacteria Urine Trace /hpf; RBC Urine 0-2 /hpf (0-2); Squamous Epithelial Cell Urine Rare /hpf (Few); WBC Urine 0-3 /hpf
[2022-08-06 13:40] LABS: Free T4 Free Thyroxine 1.35 ng/mL (0.78-2.19)
== END 2022-08-06 12:53 | disposition home or self-care (01) ==
LOC: HOME HLTH 13:01
PROVIDERS: Referring Provider Physician Assistant
DX: E03.9 Hypothyroidism, unspecified (principal); I10 Essential (primary) hypertension; R30.0 Dysuria
CPT/HCPCS: 80048; 81001; 84439; 84443

== ENCOUNTER 2022-09-06 11:00 | Outpatient (RCR) | payer MEDICARE, MEDICAID, SELFPAY | END 2022-09-26 18:50 | disposition home or self-care (01) | LOC: ANHCPREHAB 11:00 | PROVIDERS: PCP Family Medicine; Visit Provider Internal Medicine | DX: I25.42 Coronary artery dissection (principal); I50.89 Other heart failure | CPT/HCPCS: 93798 ==

== ENCOUNTER 2022-11-05 08:45 | Outpatient (RCR) | payer MEDICARE, MEDICAID, SELFPAY ==
--- NOTE | 2022-10-16 16:22 | PTOPEVAL1 ---
Assessment and note entered by Marian Wilder, PT, DPT Evaluation Information Assessment Status Evaluation Diagnosis low back pain Subjective Information Pt reports low back pain with spinal stenosis with nearly bone on bone arthritis of her L hip. She states she fell a couple of months ago and irritated her sciatic nerve for about a week. Today she reports numbness in her L leg and low back pain are her biggest complaint. She states she cannot walk almost at all d/t pain. Pt states she is on disability d/t her back pain. She states she had physical therapy prior for her back pain without much relief. During the evaluation pt remains slouched in her chair. Reported Pain Level Pain Score 5: Self Report Assessment PT Clinical Summary Roslyn presents to therapy today for her initial evaluation with a diagnosis of low back pain. Today she demonstrates a R sided lateral trunk lean in standing with decreased hip strength liliya. Active lumbar and LE ROM does not increase pain. She demonstrates cord like muscle tightness in her lumbar paraspinals liliya. Skilled physical therapy services are indicated to improve functional mobility, to improve core strength, and to limit back pain. Plan of Care Interventions Electrical Stimulation,Gait Training,Hot Pack/Cold Pack,Manual Therapy,Neuro Re-education,Patient/ Caregiver Educati,Therapeutic Activities, Therapeutic Exercise PT Services Indicated Yes Treatment Frequency and 1x/wk for 4 wks Duration These treatments will address the objective and functional deficits as defined above. The patient will be advanced safely and appropriately in order for the patient to progress towards his/her prior level of function. Additional exercises will be introduced and as well as a comprehensive home exercise program upon discharge, if needed, ?to ensure carryover of functional gains achieved in the clinic. This treatment plan has been reviewed and agreement upon by the patient.
--- NOTE | 2022-11-12 08:21 | PCPTNOTE ---
Patient called & cancelled scheduled appointment this date due to having jury duty today.
--- NOTE | 2022-11-14 14:14 | PCPTNOTE ---
Patient called & cancelled scheduled appointment this, she did not give a reason. She has been rescheduled.
--- NOTE | 2022-11-15 11:52 | PCPTNOTE ---
Patient called & cancelled scheduled appointment this date due to having a kidney infection. She has been rescheduled.
--- NOTE | 2022-11-28 13:27 | PCPTNOTE ---
Patient called & cancelled scheduled appointment this date due to having significant back pain.
--- NOTE | 2022-11-28 13:29 | PTOPDC ---
Assessment and note entered by Marian Wilder, PT, DPT Evaluation Information Assessment Status Discharge - Pt Not Present Diagnosis low back pain Subjective Information Pt called and cancelled her appointment today d/t intense back pain, she states she is on her way to the ED. Called and spoke with patient, she states she is going to see neuro in a few weeks and will just come back to therapy is they recommend it. Assessment PT Clinical Summary Roslyn completed 4 visits of skilled therapy from to 11/28/22. She will be discharged at this time d/t poor attendance and pt condition.
== END 2022-11-29 15:59 | disposition home or self-care (01) ==
LOC: ANHGOSHPT 08:45
PROVIDERS: PCP Family Medicine; Visit Provider Nurse Practitioner Family
DX: M54.42 Lumbago with sciatica, left side (principal)
CPT/HCPCS: 97110; 97112; 97161; 99199

== ENCOUNTER 2022-11-08 14:30 | Emergency (ER) | payer MEDICARE, MEDICAID, SELFPAY ==
[2022-11-08 14:41] VITALS: BP 110/53; PULSE 60; RESP 18; TEMP 36.1; O2SAT 99
--- NOTE | 2022-11-08 17:20 | PC.NURSE ---
patient left without being seen.
== END 2022-11-08 17:27 | disposition left against medical advice (07) ==
PROVIDERS: PCP Family Medicine
DX: R51.9 Headache, unspecified (principal)
CPT/HCPCS: 99199

== ENCOUNTER 2022-11-13 12:18 | Emergency (ER) | payer MEDICARE, MEDICAID, SELFPAY ==
[2022-11-13 12:26] VITALS: BP 114/68; PULSE 63; RESP 20; TEMP 36.4; O2SAT 100
--- NOTE | 2022-11-13 13:29 | ED.FEMALEGU ---
HPI - Female Genitourinary General Chief complaint: Urogenital-Female Stated complaint: lower back pain / burning urination Time Seen by Provider: 11/13/22 13:32 Source: patient, RN notes reviewed and old records reviewed Mode of arrival: ambulatory Limitations: no limitations History of Present Illness HPI Narrative: 57-year-old female who presents to [facility] with complaints of 2 week duration of some pain with urination with increased symptoms for the past 2 days with some lower back pain with pink tinged urine. Patient reports that she feels like she is having some spasms with perineum discomfort. Patient has taken some Ibuprofen for the discomfort.Patient denies vaginal discharge or itching reports no concern for STD exposure. MD elicited complaint: UTI Onset (ago): week(s) (2 increased symptoms 2 days) Location of symptoms: perineum and low back Severity scale (1-10): 6 Treatment prior to arrival: NSAIDs Related Data Home Medications Medication Instructions Recorded Confirmed atorvastatin 40 mg tablet 40 mg PO DAILY 12/06/19 11/13/22 carvedilol 12.5 mg tablet 12.5 mg PO Q12H 12/06/19 11/13/22 clonidine HCl 0.2 mg tablet 0.2 mg PO DAILY 12/06/19 11/13/22 duloxetine 30 mg capsule,delayed 30 mg PO DAILY 12/06/19 11/13/22 release duloxetine 60 mg capsule,delayed 60 mg PO DAILY 12/06/19 11/13/22 release levothyroxine 150 mcg tablet 150 mcg PO DAILY 12/06/19 11/13/22 lisinopril 5 mg tablet 20 mg PO DAILY 12/06/19 11/13/22 meloxicam 15 mg tablet 15 mg PO DAILY 12/06/19 11/13/22 mirabegron 25 mg tablet,extended 50 mg PO DAILY 12/06/19 11/13/22 release 24 hr (Myrbetriq) omeprazole 20 mg capsule,delayed 20 mg PO DAILY 12/06/19 11/13/22 release spironolactone 25 mg tablet 25 mg PO DAILY 12/06/19 11/13/22 furosemide 20 mg tablet 20 mg PO DAILY 06/27/22 11/13/22 Humira 11/13/22 methadone 11/13/22 Allergies Allergy/AdvReac Type Severity Reaction Status Date / Time adhesive Allergy Unknown BLISTERS Verified 11/13/22 13:13 methotrexate Allergy Rash Verified 11/13/22 13:13 Review of Systems Review of Systems: CONSTITUTIONAL: Denies fever, chills, or sweats. CARDIOVASCULAR: Denies chest pain, palpitations, or edema. RESPIRATORY: Denies cough or dyspnea. GASTROINTESTINAL: Denies abdominal pain, nausea, vomiting, or diarrhea.discomfort with some pink tinged urine reported. GENITOURINARY: Reports dysuria, frequency, urgency. reports lower back pain and perineum discomfort SKIN: Denies rash or itching. MUSCULOSKELETAL: Denies back pain or myalgia. Denies CVA tenderness NEUROLOGIC: Denies headache All systems reviewed & are unremarkable except as noted in HPI and below PMFSH Past Medical History Medical History Anxiety with depression Asthma Chronic back pain Hepatitis C Hyperlipidemia Hypertension Kidney stone Meningitis Overactive bladder Polymorphic ventricular tachycardia Rheumatoid arthritis Seizures Skull fracture Syncope and collapse Surgical History Surgical History H/O vein stripping History of appendectomy Family History Family History Father Malignant neoplasm of prostate Hypertension Renal disease Heart disease Mother Hypertension Heart disease Grandparent Cancer Hypertension Heart disease Social History Social History Social History: The patient is and disabled She is listed as a full code. Smoking packs per day: 0.5 Smoking cigarettes per day: 10.0 Years smoked: 30 Smoking pack-years: 15.00 Smoking status: Former smoker Tobacco type: cigarettes and e-cigarettes/vaping Additional smoking assessment comments: stopped smoking cigarettes, now only vapes Alcohol intake: never Substance use: never Substance use type: f
== END 2022-11-13 13:46 | disposition home or self-care (01) ==
PROVIDERS: Emergency Provider Registered Nurse
DX: N39.0 Urinary tract infection, site not specified (principal); J45.909 Unspecified asthma, uncomplicated; E78.5 Hyperlipidemia, unspecified; I10 Essential (primary) hypertension; M06.9 Rheumatoid arthritis, unspecified; G40.909 Epilepsy, unspecified, not intractable, without status epilepticus
CPT/HCPCS: 81003; 87077; 87086; 87186; 99213; G0463

== ENCOUNTER 2022-11-29 11:53 | Inpatient (IN) | payer MEDICARE, MEDICAID, SELFPAY ==
[2022-11-29] VITALS (22 sets, daily range): BP systolic 76–123; BP diastolic 47–87; PULSE 50–64; RESP 11–20; TEMP 35.9–36.4; O2SAT 93–100; BMI 38.8
--- NOTE | ~2022-11-29 | XR_ITS ---
XR chest 2V 11/29/2022 13:07 Indication: Weakness and dyspnea Procedure: PA and lateral views of the chest Comparison: 07/07/2022 Findings: Heart size normal. No focal air space disease, pulmonary edema, pleural effusion or suspect ed pneumothorax. Impression: 1: No acute cardiopulmonary disease. Reviewed, dictated and finalized at location L. Impression: 1: No acute cardiopulmonary disease.
--- NOTE | ~2022-11-29 | US_ITS ---
Renal-Bladder ultrasound Clinical History: Acute kidney injury Technique: Real-time sonographic imaging of the kidneys and urinary bladder was performed. Findings: The right kidney measures 10.3 cm in length and the left kidney measures 9.8 cm. There is n o hydronephrosis or renal calculus identified. Renal cortical echogenicity is within normal limits. N o renal mass lesion is identified. The urinary bladder is moderately distended at the time of this exam. No intraluminal echoes are iden tified. No abnormal wall thickening is seen. Impression: Unremarkable ultrasound of the kidneys and urinary bladder. Reviewed, dictated and finalized at location M. Impression: Unremarkable ultrasound of the kidneys and urinary bladder.
--- NOTE | ~2022-11-29 | XR_ITS ---
EXAMINATION: XR lumbar spine 6V w bending DATE: 11/30/2022 18:45 INDICATION: Low back pain TECHNIQUE: Anteroposterior, lateral in neutral, flexion and extension, and bilateral oblique views of the lumbar spine, and cone-down lateral view of the lumbosacral junction were obtained. COMPARISON: 03/06/2021 FINDINGS: 10 degrees lumbar levoscoliosis. 5 mm anterolisthesis L4 on L5 which is unchanged with flexion or ext ension. Minimal motion of the lumbar spine with flexion or extension without abnormal translatory mot ion. Vertebral body heights are normal. Severe disc height loss at L4-L5 and moderate disc height los s at L5-S1. Moderate to severe lower lumbar facet osteoarthritis. No evident pars interarticularis de fects. Surgical clips in the right hemipelvis. IMPRESSION: 1. Mild lumbar levoscoliosis with moderate to severe lower lumbar spondylosis. 2. Minimal motion of the lumbar spine with flexion and extension and with no change in 5 mm anterolis thesis of L4 on L5. Reviewed, dictated and finalized at location A. IMPRESSION: 1. Mild lumbar levoscoliosis with moderate to severe lower lumbar spondylosis. 2. Minimal motion of the lumbar spine with flexion and extension and with no ch arnoldo in 5 mm anterolisthesis of L4 on L5.
--- NOTE | 2022-11-29 12:00 | ECG_ITS ---
Measurements Intervals Kersey Rate: 57 P: 46 MA: 163 QRS: 69 QRSD: 102 T: 74 QT: 449 QTc: 439 Interpretive Statements SINUS BRADYCARDIA LOW QRS VOLTAGE IN LIMB LEADS BORDERLINE ECG COMPARED TO ECG 07/07/2022 12:15:57 SINUS BRADYCARDIA NOW PRESENT Electronically Signed On 11-29-2022 12:27:44 CDT by Felix Douglass D.O.
--- NOTE | 2022-11-29 12:08 | ED.WEAKNESS ---
HPI - Weakness General Chief complaint: Weakness Stated complaint: unable to walk Time Seen by Provider: 11/29/22 12:04 History of Present Illness HPI Narrative: Patient is a 57-year-old female with a history of CAD, hypertension, hyperlipidemia, rheumatoid arthritis, spontaneous coronary artery dissection several months ago presenting with generalized weakness. Patient states that for the last several days her legs have been giving out on her. States that they feel generally weak. States that she suffers from chronic back pain which is unchanged. States that she has been checking her blood pressure over the last few weeks and its been low for her. States its been in the 90s systolic. She denies any pain. Denies headache, numbness or focal weakness, chest pain, shortness of breath, fevers, cough, abdominal pain, diarrhea, dysuria, leg swelling. States that she has had several episodes of vomiting. Related Data Home Medications Medication Instructions Recorded Confirmed clonidine HCl 0.2 mg tablet 0.2 mg PO DAILY 12/06/19 11/29/22 duloxetine 30 mg capsule,delayed 30 mg PO HS 12/06/19 11/29/22 release duloxetine 60 mg capsule,delayed 60 mg PO DAILY 12/06/19 11/29/22 release levothyroxine 150 mcg tablet 150 mcg PO 0630 12/06/19 11/29/22 mirabegron 25 mg tablet,extended 50 mg PO DAILY 12/06/19 11/29/22 release 24 hr (Myrbetriq) omeprazole 20 mg capsule,delayed 20 mg PO DAILY 12/06/19 11/29/22 release methadone 80 mg PO DAILY 11/13/22 11/29/22 adalimumab 40 mg/0.4 mL 40 mg subcut [id number] 11/29/22 11/29/22 subcutaneous pen kit (Humira(CF) Pen) amiodarone 200 mg tablet (Pacerone) 200 mg PO DAILY 11/29/22 11/29/22 levetiracetam 500 mg tablet 500 mg PO Q12H 11/29/22 11/29/22 (Keppra) Allergies Allergy/AdvReac Type Severity Reaction Status Date / Time adhesive Allergy Unknown BLISTERS Verified 11/29/22 17:51 methotrexate Allergy Rash Verified 11/29/22 17:51 Review of Systems Review of Systems: All systems reviewed & are unremarkable except as noted in HPI and below PMFSH Past Medical History Medical History (Updated 12/09/22 @ 18:49 by Gala Caraballo MD) Allergies Anxiety with depression Asthma Cardiomyopathy Chronic anemia Chronic back pain COPD (chronic obstructive pulmonary disease) GERD (gastroesophageal reflux disease) Heart attack Hepatitis C Hyperlipidemia Hypertension Hypothyroidism Kidney stone Meningitis Overactive bladder Polymorphic ventricular tachycardia Rheumatoid arthritis Seizures Skull fracture Spontaneous dissection of coronary artery Syncope and collapse Thyroid disorder Surgical History Surgical History (Updated 11/29/22 @ 21:24 by Kasey Church PA-C) History of appendectomy History of cardiac catheterization History of tubal ligation (01/2004) History of vein stripping Family History Family History (Updated 12/07/22 @ 11:06 by Felicita Sher MA) Father Malignant neoplasm of prostate Hypertension Renal disease Heart disease Mother Hypertension Heart disease Thyroid disorder Grandparent Cancer Hypertension Heart disease Cerebrovascular accident Son Asthma Grandparent Cancer Heart problem Social History Social History (Updated 12/07/22 @ 11:03 by Felicita Sher MA) Social History: Rosyln has gotten her flu, tetanus, and pneumonia vaccine. Has had a colonoscopy. Has had a blood transfusion back in 1968(date unknown). She drinks 6 cups of cola/day. Surrogate medical decision maker: Mindi Ríos, mother. Code status: Full code. Smoking packs per day: 1 Smoking cigarettes per day: 20.0 Years smoked: 30 Smoking pack-years: 30.00 Smoking status: Former smoker Tobacco type: e-cigarettes/vaping Additional smoking assessment comments: stopped smoking cigarettes, now only vapes Alcohol intake: never Substance use: former Substance use type: former substance user Last use: 2019, takes methadon
[2022-11-29 12:20] LABS: Basophils Percent Auto 0.4 % (0.2-1.2); Eosinophils Absolute Auto 0.3 K/mm3 (0-0.3); Eosinophils Percent Auto 4.6 % (0-4.4); Hematocrit 31.8 % (37.0-47.0); Hemoglobin 10.1 g/dL (12.0-15.0); Immature Granulocyte Absolute 0.03 K/mm3 (0.00-0.031); Immature Granulocyte Percent A 0.4 % (0-0.5); Lymphocytes Absolute Auto 2.69 K/mm3 (0.9-3.2); Lymphocytes Percent Auto 38.9 % (18.3-44.2); Mean Corpuscular HGB Conc 31.8 g/dl (32-36); Mean Corpuscular Hemoglobin 31.6 pg (26-34); Mean Corpuscular Volume 99.4 fl (80-100); Mean Platelet Volume 9.6 fl (7.4-10.4); Monocytes Absolute Auto 0.5 K/mm3 (0.1-0.6); Monocytes Percent Auto 6.5 % (2.6-8.5); Neutrophils Absolute Auto 3.4 K/mm3 (1.3-6.7); Neutrophils Percent Auto 49.2 % (45.5-73.1); Platelet Count Result 188 k/mm3 (150-375); Red Cell Distribution Width 14.1 % (11.5-14.5); White Blood Count 6.9 K/mm3 (4.5-10.0)
[2022-11-29 12:29] LABS: Alanine Aminotransferase 14 U/L (6-35); Albumin Level 4.1 g/dL (3.5-5.1); Alkaline Phosphatase 73 U/L (38-126); Anion Gap 8 mmol/L (8-16); Aspartate Amino Transferase 21 U/L (14-36); Bilirubin,Total 0.6 mg/dL (0.2-1.3); Blood Urea Nitrogen 55 mg/dL (7-17); Calcium 8.4 mg/dL (8.4-10.2); Carbon Dioxide 23 mmol/L (22-30); Chloride 104 mmol/L (98-107); Estimated Glomerular Filt Rate 19; Glucose 78 mg/dL (65-110); Potassium 4.9 mmol/L (3.4-5.0); Sodium 135 mmol/L (137-145)
[2022-11-29] MEDS: SODIUM CHLORIDE 0.9% IV 1,000 ML 999 ML IV CONT ×3 (12:41→15:06)
[2022-11-29 12:49] LABS: Lactic Acid Reflex 0.8 mmol/L (0.7-2.0); Lipase 71 U/L (23-300); Prothrombin Time 13.8 Seconds (11.1-14.7)
[2022-11-29 12:50] LABS: Partial Thromboplastin Time 27.8 SECONDS (22.3-36.8)
[2022-11-29 13:02] LABS: Appearance Urine Clear (Clear); Bacteria Urine None Seen /hpf; Bilirubin Urine Negative (Negative); Blood Urine Negative (Negative); Color Urine Yellow (Yellow); Glucose Urine UA Negative (Negative); Ketones Urine Negative (Negative); Leukocyte Esterase Ur 1+ LEU/UL (Negative); Nitrate Urine Negative (Negative); Non Pathogenic Casts 0-2; Protein Urine Negative (Negative); RBC Urine 0-2 /hpf (0-2); Specific Grav Ur 1.006 (1.001-1.035); Squamous Epithelial Cell Urine None seen /hpf (Few); Urobilinogen Urine 0.2 mg/dL (<2.0); WBC Clumps Urine Present /HPF; pH Urine 5.5 (5.0-9.0)
[2022-11-29 13:02] LABS: NT Pro B Type Natriuretic Pept 756 pg/mL (19.9-100); Troponin I < 0.012 ng/mL (0.000-0.034)
[2022-11-29 13:03] LABS: Add Urine Microscopic? YES
[2022-11-29 14:16] LABS: Free T4 Free Thyroxine Reflex 1.05 ng/dL (0.78-2.19)
[2022-11-29 16:04] LABS: Troponin I < 0.012 ng/mL (0.000-0.034)
--- NOTE | 2022-11-29 16:15 | PC.NURSE ---
This patient, Roslyn Pardo, was admitted to [facility] Surg Room 313-01. Patient/family oriented to hospital policies and general routines including ID bracelet, bed and alarms, visiting hours, pain management, procedures, bathroom and other care routines, personal items, smoking policy, room service/diet, and visiting hours. Information on how to activate the Rapid Response Team has been discussed. Patient/Family are encouraged to report perceived risks to care and to ask questions if they do not understand what they are told or what they should do.
--- NOTE | 2022-11-29 16:21 | PM.IMHP ---
H&P: HPI History of Present Illness Date/Time: 11/29/22 21:00 Chief Complaint: Weakness. Narrative: This is a pleasant 57-year-old female with multiple medical problems including rheumatoid arthritis, chronic back pain on methadone, history of coronary artery dissection and paroxysmal ventricular tachycardia in June 2022, hypothyroidism, seizures, and other comorbidities who presented to the emergency department via private vehicle from home for evaluation of weakness. She reports [id number] arthritis of the left hip and due to that her gait has been affected. She has chronic back pain which seems to have been getting worse, she thinks in part due to the arthritis in the hip. MRI of the lumbar spine in October 2022 showed multilevel degenerative changes in lumbar spine including disc bulge and superimposed central protrusion with disc material encroaching upon the transversing nerve roots and severe left and moderate right foraminal narrowing. She has become increasingly weak in lower extremities recently and today she tells me that her legs could barely hold up her own weight. She has been having issues with her left leg especially giving out on her and causing her to have falls. Additionally she has noticed that her blood pressures have been running low, in the 80s to 90s systolic. She has not been started on any new medications recently but she has been on diuretics since her coronary artery dissection and June 2022. Additionally she has been battling a UTI recently and she continues to have urinary frequency though that is not necessarily unusual for her. She denies fever, chills, sweats, cold and flu symptoms, chest pain, shortness a breath, nausea, vomiting, and diarrhea. She also denies vertigo, visual changes, facial droop, difficulty speaking, saddle anesthesia, urinary retention, and bowel incontinence. In the ED: Blood pressures were as low 76/61 in the ED but they have improved with IV fluids. Rest her vital signs have been stable. Pertinent labs include a WBC count of 6.9, hemoglobin 10.1 3, hematocrit 31.8%, platelets 188, sodium 135, potassium 4.9, BUN 55, creatinine 2.60, lactic acid 0.8, magnesium 2.0, normal LFTs, normal troponin, proBNP 756, lipase 71, TSH 8.830. UA was positive for leukocyte esterase, 11 to 20 WBC, and WBC clumps. No bacteria was seen, 0 to 2 casts noted. EKG showed sinus bradycardia. She was given a g of ceftriaxone and is being admitted for urinary tract infection, acute kidney injury, and weakness. Review of Systems Review of Systems: Twelve systems were reviewed and are negative except for as per HPI. [facility] Past Medical History Medical History (Updated 11/29/22 @ 21:27 by Kasey Church PA-C) Anxiety with depression Asthma Cardiomyopathy Chronic anemia Chronic back pain Hepatitis C Hyperlipidemia Hypertension Hypothyroidism Kidney stone Meningitis Overactive bladder Polymorphic ventricular tachycardia Rheumatoid arthritis Seizures Skull fracture Spontaneous dissection of coronary artery Syncope and collapse Surgical History Surgical History (Updated 11/29/22 @ 21:24 by Kasey Church PA-C) History of appendectomy History of cardiac catheterization History of tubal ligation (01/2004) History of vein stripping Family History Family History Father Malignant neoplasm of prostate Hypertension Renal disease Heart disease Mother Hypertension Heart disease Grandparent Cancer Hypertension Heart disease Social History Social History (Updated 11/29/22 @ 21:24 by Kasey Church PA-C) Social History: Surrogate medical decision maker: Mindi Ríos, mother. Code status: Full code. Smoking packs per day: 1 Smoking cigarettes per day: 20.0 Years smoked: 30 Smoking pack-years: 30.00 Smoking status: Former smoker Tobacco type: cigarettes Additional smoking assessment comments: stopped smok
[2022-11-29 18:04] LABS: Total Triiodothyronine (T3) 0.76 NG/ML (0.97-1.69)
[2022-11-29 21:41] LABS: Creatine Kinase 100 U/L (30-135)
[2022-11-29 21:54] LABS: Troponin I < 0.012 ng/mL (0.000-0.034)
[2022-11-29 21:55] LABS: Anion Gap 6 mmol/L (8-16); Blood Urea Nitrogen 44 mg/dL (7-17); CRP < 0.5 mg/dL (<1.0); Calcium 7.8 mg/dL (8.4-10.2); Carbon Dioxide 20 mmol/L (22-30); Chloride 112 mmol/L (98-107); Estimated CRCL calculation 31 ml/min; Estimated Glomerular Filt Rate 24; Glucose 69 mg/dL (65-110); Potassium 4.9 mmol/L (3.4-5.0); Sodium 138 mmol/L (137-145)
[2022-11-29] MEDS: levETIRAcetam 500 MG TABLET PO (23:53)
[2022-11-29] MEDS: oxyCODONE/ACETAMINOPHEN (*CRX) 5-325 MG TABLET 1 TABLET PO (23:53)
[2022-11-29] MEDS: carvediloL 12.5 MG TABLET PO (23:54)
[2022-11-29] MEDS: LACTATED RINGERS 1,000 ML 100 ML IV CONT (23:54)
[2022-11-29] MEDS: DULoxetine HCL 30 MG CAPSULE.DR PO (23:54)
[2022-11-30] VITALS (11 sets, daily range): BP systolic 113–144; BP diastolic 48–71; PULSE 48–76; RESP 16–18; TEMP 36.2–36.3; O2SAT 96–100
[2022-11-30] MEDS: LEVOTHYROXINE SODIUM 150 MCG TABLET PO (05:35)
[2022-11-30 06:36] LABS: Anion Gap 9 mmol/L (8-16); Blood Urea Nitrogen 38 mg/dL (7-17); Calcium 8.4 mg/dL (8.4-10.2); Carbon Dioxide 22 mmol/L (22-30); Chloride 110 mmol/L (98-107); Estimated CRCL calculation 35 ml/min; Estimated Glomerular Filt Rate 27; Glucose 66 mg/dL (65-110); Phosphorus 4.7 mg/dL (2.5-4.5); Potassium 5.3 mmol/L (3.4-5.0); Sodium 141 mmol/L (137-145)
[2022-11-30] MEDS: AMIODARONE HCL 200 MG TABLET PO (08:37)
[2022-11-30] MEDS: carvediloL 12.5 MG TABLET PO ×2 (08:37→21:13)
[2022-11-30] MEDS: PANTOPRAZOLE 40 MG TABLET PO (08:37)
[2022-11-30] MEDS: DULoxetine HCL 60 MG CAPSULE.DR PO (08:37)
[2022-11-30] MEDS: levETIRAcetam 500 MG TABLET PO ×2 (08:37→21:13)
[2022-11-30] MEDS: LACTATED RINGERS 1,000 ML 100 ML IV CONT ×2 (10:39→23:12)
--- NOTE | 2022-11-30 11:45 | P.PNIM_ITS ---
Progress Note: A&P Assessment and Plan (1) Acute kidney injury: Code(s): N17.9 - Acute kidney failure, unspecified Status: Acute Assessment and Plan: * BUN/Cr elevated at admission 55/2.60 * Fluids given in the ED improved BUN/Cr 38/1.90 * Reports lasix since 06/2022 * Lasix and lisinopril on hold for now * CK is stable * Renal ultrasound negative for any findings * Continue to trend labs * Avoid nephrotoxic medications * renal adjust medications * Obtain urine electrolytes * Continue IV fluids (2) Hypotension: Qualifiers: Hypotension type: unspecified hypotension type Qualified Code(s): I95.9 - Hypotension, unspecified Code(s): I95.9 - Hypotension, unspecified Status: Acute Assessment and Plan: * BP noted to be 76/61 upon arrival * Current BP is 144/56 * Most likely related to dehydration and over diuresis or over treatment of hypertension * Hold antihypertensives, restart when appropriate * Trend BP * Adjust therapy as indicated (3) Weakness: Code(s): R53.1 - Weakness Status: Acute Assessment and Plan: * Likely related to acute kidney injury and possible urinary tract infection. * Does have chronic back pain * MRI showed degenerative changes * Neurosurgery consulted * PT/OT when appropiate (4) Abnormal urinalysis: Code(s): R82.90 - Unspecified abnormal findings in urine Status: Acute Assessment and Plan: * UA possibly infectious * Complaints of frequency * Last Culture reported E.Coli, and was treated with Macrobid * Continue ceftriaxone * Await culture results * Adjust antibiotics to sensitivities (5) Chronic anemia: Code(s): D64.9 - Anemia, unspecified Status: Acute Assessment and Plan: * Current H/H 10.31.8 * Hemoglobin is stable on review of previous labs. * Consider anemia labs * trend labs * Adjust therapy as indicated (6) Cardiomyopathy: Qualifiers: Cardiomyopathy type: unspecified Qualified Code(s): I42.9 - Cardiomyopathy, unspecified Code(s): I42.9 - Cardiomyopathy, unspecified Status: Acute Assessment and Plan: * Clinically compensated in fact a bit dry. * Monitor volume status closely while hydrating * Echo from 06/27/22 showed EF of 20-25% with grade 3 diastolic dysfunction * BNP stable at 756 * Lasix as hold * daily weights (7) Chronic back pain: Qualifiers: Back pain location: low back pain Back pain laterality: unspecified Sciatica presence: unspecified whether sciatica present Qualified Code(s): M54.50 - Low back pain, unspecified; G89.29 - Other chronic pain Code(s): M54.9 - Dorsalgia, unspecified; G89.29 - Other chronic pain Status: Acute Assessment and Plan: * Stated she is on Methadone * Continue as indicated * Other pain medications available (8) Rheumatoid arthritis: Qualifiers: Rheumatoid arthritis location: unspecified site Rheumatoid factor presence: unspecified presence Qualified Code(s): M06.9 - Rheumatoid arthritis, unspecified Code(s): M06.9 - Rheumatoid arthritis, unspecified Status: Acute Assessment and Plan: * She is
--- NOTE | 2022-11-30 11:45 | PM.IMPN ---
Progress Note: A&P Assessment and Plan (1) Acute kidney injury: Code(s): N17.9 - Acute kidney failure, unspecified Status: Acute Assessment and Plan: BUN/Cr elevated at admission 55/2.60 Fluids given in the ED improved BUN/Cr 38/1.90 Reports lasix since 06/2022 Lasix and lisinopril on hold for now CK is stable Renal ultrasound negative for any findings Continue to trend labs Avoid nephrotoxic medications renal adjust medications Obtain urine electrolytes Continue IV fluids (2) Hypotension: Qualifiers: Hypotension type: unspecified hypotension type Qualified Code(s): I95.9 - Hypotension, unspecified Code(s): I95.9 - Hypotension, unspecified Status: Acute Assessment and Plan: BP noted to be 76/61 upon arrival Current BP is 144/56 Most likely related to dehydration and over diuresis or over treatment of hypertension Hold antihypertensives, restart when appropriate Trend BP Adjust therapy as indicated (3) Weakness: Code(s): R53.1 - Weakness Status: Acute Assessment and Plan: Likely related to acute kidney injury and possible urinary tract infection. Does have chronic back pain MRI showed degenerative changes Neurosurgery consulted PT/OT when appropiate (4) Abnormal urinalysis: Code(s): R82.90 - Unspecified abnormal findings in urine Status: Acute Assessment and Plan: UA possibly infectious Complaints of frequency Last Culture reported E.Coli, and was treated with Macrobid Continue ceftriaxone Await culture results Adjust antibiotics to sensitivities (5) Chronic anemia: Code(s): D64.9 - Anemia, unspecified Status: Acute Assessment and Plan: Current H/H 10.1/31.8 Hemoglobin is stable on review of previous labs. Consider anemia labs trend labs Adjust therapy as indicated (6) Cardiomyopathy: Qualifiers: Cardiomyopathy type: unspecified Qualified Code(s): I42.9 - Cardiomyopathy, unspecified Code(s): I42.9 - Cardiomyopathy, unspecified Status: Acute Assessment and Plan: Clinically compensated in fact a bit dry. Monitor volume status closely while hydrating Echo from 06/27/22 showed EF of 20-25% with grade 3 diastolic dysfunction BNP stable at 756 Lasix as hold daily weights (7) Chronic back pain: Qualifiers: Back pain location: low back pain Back pain laterality: unspecified Sciatica presence: unspecified whether sciatica present Qualified Code(s): M54.50 - Low back pain, unspecified; G89.29 - Other chronic pain Code(s): M54.9 - Dorsalgia, unspecified; G89.29 - Other chronic pain Status: Acute Assessment and Plan: Stated she is on Methadone Continue as indicated Other pain medications available (8) Rheumatoid arthritis: Qualifiers: Rheumatoid arthritis location: unspecified site Rheumatoid factor presence: unspecified presence Qualified Code(s): M06.9 - Rheumatoid arthritis, unspecified Code(s): M06.9 - Rheumatoid arthritis, unspecified Status: Acute Assessment and Plan: She is on Humira q.2 weeks. (9) Hypothyroidism: Qualifiers: Hypothyroidism type: unspecified Qualified Code(s): E03.9 - Hypothyroidism, unspecified Code(s): E03.9 - Hypothyroidism, unspecified Status: Acute Assessment and Plan: Continue levothyroxine TSH 8.830 T4 1.05 T3 0.76 (10) Seizures: Code(s): R56.9 - Unspecified convulsions Status: Acute Assessment and Plan: Continue levetiracetam Seizures precautions (11) Polymorphic ventricular tachycardia: Code(s): I47.29 - Other ventricular tachycardia Status: Acute Assessment and Plan: History of, currentl
[2022-11-30 14:42] LABS: Creatinine Urine 24.4 mg/dL; Urea Random Urine 241 MG/DL
[2022-11-30 14:46] LABS: Potassium Urine Random 7.8 meq/L; Sodium Urine Random 59 meq/L
[2022-11-30] MEDS: methADONE HCL (*CRX) 10 MG TABLET 80 MG PO (15:08)
[2022-11-30] MEDS: oxyCODONE/ACETAMINOPHEN (*CRX) 5-325 MG TABLET 1 TABLET PO (21:13)
[2022-11-30] MEDS: DULoxetine HCL 30 MG CAPSULE.DR PO (21:13)
[2022-12-01] VITALS (14 sets, daily range): BP systolic 102–149; BP diastolic 55–83; PULSE 45–59; RESP 14–20; TEMP 36.2–36.4; O2SAT 99–100
[2022-12-01] MEDS: LEVOTHYROXINE SODIUM 150 MCG TABLET PO (06:23)
[2022-12-01] MEDS: methADONE HCL (*CRX) 10 MG TABLET 80 MG PO (08:34)
[2022-12-01] MEDS: PANTOPRAZOLE 40 MG TABLET PO (08:34)
[2022-12-01] MEDS: DULoxetine HCL 60 MG CAPSULE.DR PO (08:34)
[2022-12-01] MEDS: levETIRAcetam 500 MG TABLET PO ×2 (08:35→21:35)
[2022-12-01 09:00] LABS: Basophils Percent Auto 0.4 % (0.2-1.2); Eosinophils Absolute Auto 0.2 K/mm3 (0-0.3); Eosinophils Percent Auto 3.9 % (0-4.4); Hematocrit 32.6 % (37.0-47.0); Hemoglobin 10.1 g/dL (12.0-15.0); Immature Granulocyte Absolute 0.02 K/mm3 (0.00-0.031); Immature Granulocyte Percent A 0.4 % (0-0.5); Lymphocytes Absolute Auto 2.17 K/mm3 (0.9-3.2); Lymphocytes Percent Auto 40.4 % (18.3-44.2); Mean Corpuscular Hemoglobin 30.7 pg (26-34); Mean Corpuscular Volume 99.1 fl (80-100); Mean Platelet Volume 9.8 fl (7.4-10.4); Monocytes Absolute Auto 0.3 K/mm3 (0.1-0.6); Monocytes Percent Auto 6.3 % (2.6-8.5); Neutrophils Absolute Auto 2.6 K/mm3 (1.3-6.7); Neutrophils Percent Auto 48.6 % (45.5-73.1); Platelet Count Result 190 k/mm3 (150-375); Red Blood Count 3.29 M/mm3 (4.2-5.4); Red Cell Distribution Width 13.7 % (11.5-14.5); White Blood Count 5.4 K/mm3 (4.5-10.0)
[2022-12-01 09:15] LABS: Alanine Aminotransferase 15 U/L (6-35); Albumin Level 4.1 g/dL (3.5-5.1); Alkaline Phosphatase 77 U/L (38-126); Anion Gap 7 mmol/L (8-16); Aspartate Amino Transferase 19 U/L (14-36); Bilirubin,Total 0.4 mg/dL (0.2-1.3); Blood Urea Nitrogen 27 mg/dL (7-17); Calcium 8.9 mg/dL (8.4-10.2); Carbon Dioxide 24 mmol/L (22-30); Chloride 108 mmol/L (98-107); Estimated CRCL calculation 44 ml/min; Estimated Glomerular Filt Rate 36; Glucose 78 mg/dL (65-110); Magnesium 1.6 mg/dL (1.6-2.3); Potassium 5.4 mmol/L (3.4-5.0); Sodium 139 mmol/L (137-145)
[2022-12-01] MEDS: AMIODARONE HCL 200 MG TABLET PO (12:01)
--- NOTE | 2022-12-01 13:31 | WPDNEUROSGCN ---
Assessment and Plan Assessment and plan (1) Spondylolisthesis, lumbar region: Code(s): M43.16 - Spondylolisthesis, lumbar region Status: Acute (2) Lumbar radiculopathy: Code(s): M54.16 - Radiculopathy, lumbar region Status: Acute Plan HPI: Roslyn Pardo is a 57 year old female with history of psoriasis, RA, CAD on ASA, HTN, HLD, hypothyroidism, and seizures who was admitted on 11/29 for acute on chronic back pain. The patient has a long history of lower back pain for which she has been taking methadone for the last 13 years, currently taking 80mg per day. Her pain has been worsening over the last 6 months in particular. She has radicular pain down the outer aspects of both legs to the ankle, occasionally into the bottom of the feet, and worse on the left side. She also can get numbness in her legs when walking and has numbness in the right thigh. The pain is relatively constant at this point, and she has not noticed any particular exacerbating or improving factors. When her pain is significant, she feels like her legs cannot support her weight. Her back pain is worse than the leg pain, but the leg pain now occurs on a daily basis and can occur regardless of position or activity. She has been in cardiac rehab the last few months which was held due to her significant back pain. She has never had epidural steroid injections. On admission, she was found to have an LORENE with likely UTI for which she is currently on rocephin. Of note, the patient was hospitalized in June for 12 days for cardiac arrest requiring defibrillation and targeted temperature management. She was intubated for 7 days, and during hospitalization, she also had a seizure. The patient was noted to have an EF of 20-25% in June. She also apparently has been told that she has a bad hip on the left side but is unsure whether she has seen an orthopedic surgeon for this or whether any intervention is being discussed. Assessment: Ms. Pardo is a 57-year-old female with many medical comorbidities including most significantly cardiac arrest in June and EF of 20-25% who was admitted with [id number] back pain. She was found to have LORENE and likely UTI on admission as well. On my exam, she is neurologically intact with exception of some numbness to light touch in the right thigh. Unfortunately, I do not have access to her recent MRI performed in October. The MRI report indicates chronic degenerative findings including a grade 1 spondylolisthesis at L4-L5 with bilateral neuroforaminal stenosis at L4-5 and L5-S1. Dynamic lumbar xrays obtained last night do not show any obvious instability with flexion or extension. At this time, I do not think it is necessary to repeat the MRI given that she has had no significant change in her symptoms since that MRI was completed. It is certainly possible that her UTI can be contributing to her worsened back pain, so it is important for this to be fully treated. In light of her recent cardiac issues and poor ejection fraction, she is not a good surgical candidate at this time. I would recommend conservative treatments including physical therapy and referral to Pain Management for discussion of JUAN ANTONIO. She does have an appointment already scheduled with Dr. Shell on Saturday, and I have asked her to ensure she obtains a copy of her MRI on a disc to bring to that appointment. Plan: -Consider adding a muscle relaxer for pain control -Recommend physical therapy for her back, both inpatient and outpatient -Recommend outpatient referral to Pain Management -Follow up as scheduled with Dr. Shell on Saturday, December 07. The patient is aware that she needs to bring a disc with her MRI to that appointment. Consult date: 12/01/22 HPI: Roslyn Pardo is a 57 year old female with history of psoriasis, RA, CAD on ASA, HTN, HLD, hypothyroidism, and seizures who was admitted on 11/29 for acute on chronic back pain. The patient has a long history of lower ba
--- NOTE | 2022-12-01 16:02 | P.PNIM_ITS ---
Progress Note: A&P Assessment and Plan (1) Acute kidney injury: Code(s): N17.9 - Acute kidney failure, unspecified Status: Acute Assessment and Plan: * BUN/Cr elevated at admission 55/2.60 * Fluids given in the ED improved BUN/Cr 27/1.50 * Reports lasix since 06/2022 * Lasix and lisinopril on hold for now * CK is stable * Renal ultrasound negative for any findings * Continue to trend labs * Avoid nephrotoxic medications * renal adjust medications * Obtain urine electrolytes * Continue IV fluids (2) Hypotension: Qualifiers: Hypotension type: unspecified hypotension type Qualified Code(s): I95.9 - Hypotension, unspecified Code(s): I95.9 - Hypotension, unspecified Status: Acute Assessment and Plan: * BP noted to be 76/61 upon arrival * Current BP is 117/83 * Most likely related to dehydration and over diuresis or over treatment of hypertension * Hold antihypertensives, restart when appropriate * Trend BP * Adjust therapy as indicated (3) Weakness: Code(s): R53.1 - Weakness Status: Acute Assessment and Plan: * Likely related to acute kidney injury and possible urinary tract infection. * Does have chronic back pain * MRI showed degenerative changes * Neurosurgery consulted * PT/OT when appropiate (4) Abnormal urinalysis: Code(s): R82.90 - Unspecified abnormal findings in urine Status: Acute Assessment and Plan: * UA possibly infectious * Complaints of frequency * Last Culture reported E.Coli, and was treated with Macrobid * Continue ceftriaxone * Await culture results * Adjust antibiotics to sensitivities (5) Chronic anemia: Code(s): D64.9 - Anemia, unspecified Status: Acute Assessment and Plan: * Current H/H 10.1/32.6 * Hemoglobin is stable on review of previous labs. * Consider anemia labs * trend labs * Adjust therapy as indicated (6) Cardiomyopathy: Qualifiers: Cardiomyopathy type: unspecified Qualified Code(s): I42.9 - Cardiomyopathy, unspecified Code(s): I42.9 - Cardiomyopathy, unspecified Status: Acute Assessment and Plan: * Clinically compensated in fact a bit dry. * Monitor volume status closely while hydrating * Echo from 06/27/22 showed EF of 20-25% with grade 3 diastolic dysfunction * BNP stable at 756 * Lasix as hold * daily weights (7) Chronic back pain: Qualifiers: Back pain location: low back pain Back pain laterality: unspecified Sciatica presence: unspecified whether sciatica present Qualified Code(s): M54.50 - Low back pain, unspecified; G89.29 - Other chronic pain Code(s): M54.9 - Dorsalgia, unspecified; G89.29 - Other chronic pain Status: Acute Assessment and Plan: * Stated she is on Methadone * Continue as indicated * Neurosurgery consulted * Order PT in and out patient * Consider adding muscle relaxer * Stable (8) Rheumatoid arthritis: Qualifiers: Rheumatoid arthritis location: unspecified site Rheumatoid factor presence: unspecified presence Qualified Code(s): M06.9 - Rheumatoid arthritis, unspecified Code(s): M06.9 - Rheumatoid arthritis, unspe
--- NOTE | 2022-12-01 16:02 | PM.IMPN ---
Progress Note: A&P Assessment and Plan (1) Acute kidney injury: Code(s): N17.9 - Acute kidney failure, unspecified Status: Acute Assessment and Plan: BUN/Cr elevated at admission 55/2.60 Fluids given in the ED improved BUN/Cr 27/1.50 Reports lasix since 06/2022 Lasix and lisinopril on hold for now CK is stable Renal ultrasound negative for any findings Continue to trend labs Avoid nephrotoxic medications renal adjust medications Obtain urine electrolytes Continue IV fluids (2) Hypotension: Qualifiers: Hypotension type: unspecified hypotension type Qualified Code(s): I95.9 - Hypotension, unspecified Code(s): I95.9 - Hypotension, unspecified Status: Acute Assessment and Plan: BP noted to be 76/61 upon arrival Current BP is 117/83 Most likely related to dehydration and over diuresis or over treatment of hypertension Hold antihypertensives, restart when appropriate Trend BP Adjust therapy as indicated (3) Weakness: Code(s): R53.1 - Weakness Status: Acute Assessment and Plan: Likely related to acute kidney injury and possible urinary tract infection. Does have chronic back pain MRI showed degenerative changes Neurosurgery consulted PT/OT when appropiate (4) Abnormal urinalysis: Code(s): R82.90 - Unspecified abnormal findings in urine Status: Acute Assessment and Plan: UA possibly infectious Complaints of frequency Last Culture reported E.Coli, and was treated with Macrobid Continue ceftriaxone Await culture results Adjust antibiotics to sensitivities (5) Chronic anemia: Code(s): D64.9 - Anemia, unspecified Status: Acute Assessment and Plan: Current H/H 10.1/32.6 Hemoglobin is stable on review of previous labs. Consider anemia labs trend labs Adjust therapy as indicated (6) Cardiomyopathy: Qualifiers: Cardiomyopathy type: unspecified Qualified Code(s): I42.9 - Cardiomyopathy, unspecified Code(s): I42.9 - Cardiomyopathy, unspecified Status: Acute Assessment and Plan: Clinically compensated in fact a bit dry. Monitor volume status closely while hydrating Echo from 06/27/22 showed EF of 20-25% with grade 3 diastolic dysfunction BNP stable at 756 Lasix as hold daily weights (7) Chronic back pain: Qualifiers: Back pain location: low back pain Back pain laterality: unspecified Sciatica presence: unspecified whether sciatica present Qualified Code(s): M54.50 - Low back pain, unspecified; G89.29 - Other chronic pain Code(s): M54.9 - Dorsalgia, unspecified; G89.29 - Other chronic pain Status: Acute Assessment and Plan: Stated she is on Methadone Continue as indicated Neurosurgery consulted Order PT in and out patient Consider adding muscle relaxer Stable (8) Rheumatoid arthritis: Qualifiers: Rheumatoid arthritis location: unspecified site Rheumatoid factor presence: unspecified presence Qualified Code(s): M06.9 - Rheumatoid arthritis, unspecified Code(s): M06.9 - Rheumatoid arthritis, unspecified Status: Acute Assessment and Plan: She is on Humira q.2 weeks. (9) Hypothyroidism: Qualifiers: Hypothyroidism type: unspecified Qualified Code(s): E03.9 - Hypothyroidism, unspecified Code(s): E03.9 - Hypothyroidism, unspecified Status: Acute Assessment and Plan: Continue levothyroxine TSH 8.830 T4 1.05 T3 0.76 (10) Seizures: Code(s): R56.9 - Unspecified convulsions Status: Acute Assessment and Plan: Continue levetiracetam Seizures precautions (11) Polymorphic ventricular tachycardia: Code(s): I47.29 - Other ventricular tachycardia St
[2022-12-01] MEDS: LACTATED RINGERS 1,000 ML 100 ML IV CONT (20:59)
[2022-12-01] MEDS: oxyCODONE/ACETAMINOPHEN (*CRX) 5-325 MG TABLET 1 TABLET PO (20:59)
[2022-12-01] MEDS: carvediloL 6.25 MG TABLET PO (21:34)
[2022-12-01] MEDS: DULoxetine HCL 30 MG CAPSULE.DR PO (21:35)
[2022-12-02] VITALS (15 sets, daily range): BP systolic 113–158; BP diastolic 59–90; PULSE 51–58; RESP 18–20; TEMP 36–36.3; O2SAT 98–100
[2022-12-02] MEDS: LACTATED RINGERS 1,000 ML 100 ML IV CONT (03:56)
[2022-12-02] MEDS: LEVOTHYROXINE SODIUM 150 MCG TABLET PO (05:58)
[2022-12-02 06:01] LABS: Basophils Percent Auto 0.3 % (0.2-1.2); Eosinophils Absolute Auto 0.3 K/mm3 (0-0.3); Eosinophils Percent Auto 3.9 % (0-4.4); Hematocrit 33.9 % (37.0-47.0); Hemoglobin 10.4 g/dL (12.0-15.0); Immature Granulocyte Absolute 0.02 K/mm3 (0.00-0.031); Immature Granulocyte Percent A 0.3 % (0-0.5); Lymphocytes Absolute Auto 2.83 K/mm3 (0.9-3.2); Lymphocytes Percent Auto 44.5 % (18.3-44.2); Mean Corpuscular HGB Conc 30.7 g/dl (32-36); Mean Corpuscular Volume 101.2 fl (80-100); Mean Platelet Volume 9.9 fl (7.4-10.4); Monocytes Absolute Auto 0.4 K/mm3 (0.1-0.6); Monocytes Percent Auto 6.9 % (2.6-8.5); Neutrophils Absolute Auto 2.8 K/mm3 (1.3-6.7); Neutrophils Percent Auto 44.1 % (45.5-73.1); Platelet Count Result 184 k/mm3 (150-375); Red Blood Count 3.35 M/mm3 (4.2-5.4); Red Cell Distribution Width 13.8 % (11.5-14.5); White Blood Count 6.4 K/mm3 (4.5-10.0)
[2022-12-02 06:19] LABS: Alanine Aminotransferase 15 U/L (6-35); Alkaline Phosphatase 67 U/L (38-126); Anion Gap 6 mmol/L (8-16); Aspartate Amino Transferase 20 U/L (14-36); Bilirubin,Total 0.4 mg/dL (0.2-1.3); Blood Urea Nitrogen 25 mg/dL (7-17); Carbon Dioxide 28 mmol/L (22-30); Chloride 107 mmol/L (98-107); Estimated CRCL calculation 47 ml/min; Estimated Glomerular Filt Rate 39; Glucose 76 mg/dL (65-110); Magnesium 1.5 mg/dL (1.6-2.3); Potassium 5.4 mmol/L (3.4-5.0); Sodium 141 mmol/L (137-145)
[2022-12-02] MEDS: methADONE HCL (*CRX) 10 MG TABLET 80 MG PO (08:02)
[2022-12-02] MEDS: DULoxetine HCL 60 MG CAPSULE.DR PO (08:02)
[2022-12-02] MEDS: carvediloL 6.25 MG TABLET PO ×2 (08:02→20:35)
[2022-12-02] MEDS: PANTOPRAZOLE 40 MG TABLET PO (08:02)
[2022-12-02] MEDS: levETIRAcetam 500 MG TABLET PO ×2 (08:02→20:36)
[2022-12-02] MEDS: AMIODARONE HCL 200 MG TABLET PO (08:03)
[2022-12-02] MEDS: MAGNESIUM SULF 4 GM/WATER100ML 4 GM/100 ML BAG IVPB (09:19)
[2022-12-02 09:58] LABS: NT Pro B Type Natriuretic Pept 1700 pg/mL (19.9-100)
--- NOTE | 2022-12-02 10:45 | P.PNIM_ITS ---
Progress Note: A&P Assessment and Plan (1) Acute kidney injury: Code(s): N17.9 - Acute kidney failure, unspecified Status: Acute Assessment and Plan: * BUN/Cr elevated at admission 55/2.60 * Fluids given in the ED, and continued * Current BUN/Cr 25/1.40 * Lasix and lisinopril on hold for now * Renal ultrasound negative for any findings * Continue to trend labs * Avoid nephrotoxic medications * renal adjust medications * FENa was 3.3%, intrinsic disease (2) Hypotension: Qualifiers: Hypotension type: unspecified hypotension type Qualified Code(s): I95.9 - Hypotension, unspecified Code(s): I95.9 - Hypotension, unspecified Status: Acute Assessment and Plan: * BP noted to be 76/61 upon arrival * Current BP is 158/76 * Most likely related to dehydration and over diuresis or over treatment of hypertension * Hold antihypertensives, restart when appropriate * Trend BP * Adjust therapy as indicated * Orthostatic blood pressures negative (3) Weakness: Code(s): R53.1 - Weakness Status: Acute Assessment and Plan: * Likely related to acute kidney injury and possible urinary tract infection. * Does have chronic back pain * MRI showed degenerative changes * Neurosurgery consulted * PT/OT when appropiate (4) Abnormal urinalysis: Code(s): R82.90 - Unspecified abnormal findings in urine Status: Acute Assessment and Plan: * UA possibly infectious * Complaints of frequency * Last Culture reported E.Coli, and was treated with Macrobid * Ceftriaxone, change to PO cefdinir * Cultures came back with E. Coli * Adjust antibiotics to sensitivities (5) Chronic anemia: Code(s): D64.9 - Anemia, unspecified Status: Acute Assessment and Plan: * Current H/H 10.4/33.7 * Hemoglobin is stable on review of previous labs. * Consider anemia labs * trend labs * Adjust therapy as indicated (6) Cardiomyopathy: Qualifiers: Cardiomyopathy type: unspecified Qualified Code(s): I42.9 - Cardiomyopathy, unspecified Code(s): I42.9 - Cardiomyopathy, unspecified Status: Acute Assessment and Plan: * Clinically compensated in fact a bit dry. * Monitor volume status closely while hydrating * Echo from 06/27/22 showed EF of 20-25% with grade 3 diastolic dysfunction * BNP stable at 756 * Lasix as hold * daily weights (7) Chronic back pain: Qualifiers: Back pain laterality: unspecified Back pain location: low back pain Sciatica presence: unspecified whether sciatica present Qualified Code(s): M54.50 - Low back pain, unspecified; G89.29 - Other chronic pain Code(s): M54.9 - Dorsalgia, unspecified; G89.29 - Other chronic pain Status: Acute Assessment and Plan: * Stated she is on Methadone * Continue as indicated * Neurosurgery consulted * Order PT in and out patient * Consider adding muscle relaxer * Stable (8) Rheumatoid arthritis: Qualifiers: Rheumatoid arthritis location: unspecified site Rheumatoid factor presence: unspecified presence Qualified Code(s): M06.9 - Rheumatoid arthritis, unspecified Code(s): M06.9 - Rheumatoid a
--- NOTE | 2022-12-02 10:45 | PM.IMPN ---
Progress Note: A&P Assessment and Plan (1) Acute kidney injury: Code(s): N17.9 - Acute kidney failure, unspecified Status: Acute Assessment and Plan: BUN/Cr elevated at admission 55/2.60 Fluids given in the ED, and continued Current BUN/Cr 25/1.40 Lasix and lisinopril on hold for now Renal ultrasound negative for any findings Continue to trend labs Avoid nephrotoxic medications renal adjust medications FENa was 3.3%, intrinsic disease (2) Hypotension: Qualifiers: Hypotension type: unspecified hypotension type Qualified Code(s): I95.9 - Hypotension, unspecified Code(s): I95.9 - Hypotension, unspecified Status: Acute Assessment and Plan: BP noted to be 76/61 upon arrival Current BP is 158/76 Most likely related to dehydration and over diuresis or over treatment of hypertension Hold antihypertensives, restart when appropriate Trend BP Adjust therapy as indicated Orthostatic blood pressures negative (3) Weakness: Code(s): R53.1 - Weakness Status: Acute Assessment and Plan: Likely related to acute kidney injury and possible urinary tract infection. Does have chronic back pain MRI showed degenerative changes Neurosurgery consulted PT/OT when appropiate (4) Abnormal urinalysis: Code(s): R82.90 - Unspecified abnormal findings in urine Status: Acute Assessment and Plan: UA possibly infectious Complaints of frequency Last Culture reported E.Coli, and was treated with Macrobid Ceftriaxone, change to PO cefdinir Cultures came back with E. Coli Adjust antibiotics to sensitivities (5) Chronic anemia: Code(s): D64.9 - Anemia, unspecified Status: Acute Assessment and Plan: Current H/H 10.4/33.7 Hemoglobin is stable on review of previous labs. Consider anemia labs trend labs Adjust therapy as indicated (6) Cardiomyopathy: Qualifiers: Cardiomyopathy type: unspecified Qualified Code(s): I42.9 - Cardiomyopathy, unspecified Code(s): I42.9 - Cardiomyopathy, unspecified Status: Acute Assessment and Plan: Clinically compensated in fact a bit dry. Monitor volume status closely while hydrating Echo from 06/27/22 showed EF of 20-25% with grade 3 diastolic dysfunction BNP stable at 756 Lasix as hold daily weights (7) Chronic back pain: Qualifiers: Back pain laterality: unspecified Back pain location: low back pain Sciatica presence: unspecified whether sciatica present Qualified Code(s): M54.50 - Low back pain, unspecified; G89.29 - Other chronic pain Code(s): M54.9 - Dorsalgia, unspecified; G89.29 - Other chronic pain Status: Acute Assessment and Plan: Stated she is on Methadone Continue as indicated Neurosurgery consulted Order PT in and out patient Consider adding muscle relaxer Stable (8) Rheumatoid arthritis: Qualifiers: Rheumatoid arthritis location: unspecified site Rheumatoid factor presence: unspecified presence Qualified Code(s): M06.9 - Rheumatoid arthritis, unspecified Code(s): M06.9 - Rheumatoid arthritis, unspecified Status: Acute Assessment and Plan: She is on Humira q.2 weeks. (9) Hypothyroidism: Qualifiers: Hypothyroidism type: unspecified Qualified Code(s): E03.9 - Hypothyroidism, unspecified Code(s): E03.9 - Hypothyroidism, unspecified Status: Acute Assessment and Plan: Continue levothyroxine TSH 8.830 T4 1.05 T3 0.76 (10) Seizures: Code(s): R56.9 - Unspecified convulsions Status: Acute Assessment and Plan: Continue levetiracetam Seizures precautions (11) Polymorphic ventricular tachycardia: Code(s): I47.29 - Other ventricular t
[2022-12-02] MEDS: SODIUM ZIRCONIUM CYCLOSILICATE 10 GM POWD.PACK PO (11:21)
--- NOTE | 2022-12-02 11:51 | P.CONNP_ITS ---
Assessment and Plan Assessment and plan (1) Acute kidney injury: Code(s): N17.9 - Acute kidney failure, unspecified Status: Acute Assessment and Plan: * improving at this time * suspect multifactorial: * hypotension/hemodynamics instability (on admission) * prerenal factors? * diuretic therapy RECORD CUTTER * ongoing SHIRA-I use RECORD CUTTER * urinary tract infection * evaluation to date: * renal ultrasound okay * urine electrolytes (by FeUrea) non-prerenal * UA consistent with UTI * follow trend of repeat labs and UOP (2) Hyperkalemia: Code(s): E87.5 - Hyperkalemia Status: Acute Assessment and Plan: * partly related to LORENE/ARF * however, suspect more so secondary to previous spironolactone use as the half life of this medication increases greatly in the context of LORENE/ARF * dose with lokelma x 1 today * follow repeat K+ levels (3) Hypotension: Qualifiers: Hypotension type: unspecified hypotension type Qualified Code(s): I95.9 - Hypotension, unspecified Code(s): I95.9 - Hypotension, unspecified Status: Acute Assessment and Plan: * resolved * BP closer to normal range * slowly resume home medications (4) UTI (urinary tract infection): Qualifiers: Hematuria presence: without hematuria Urinary tract infection type: site unspecified Qualified Code(s): N39.0 - Urinary tract infection, site not specified Code(s): N39.0 - Urinary tract infection, site not specified Status: Acute Assessment and Plan: * UA highly suggestive * urine culture with E.coli * on antibiotics (5) Anemia: Code(s): D64.9 - Anemia, unspecified Status: Chronic Assessment and Plan: * stable in comparison to labs in June 2022 * follow trend of H/H (6) Cardiomyopathy: Qualifiers: Cardiomyopathy type: unspecified Qualified Code(s): I42.9 - Cardiomyopathy, unspecified Code(s): I42.9 - Cardiomyopathy, unspecified Status: Resolved Assessment and Plan: * as noted by Echo in June 2022 * however, repeat Echo in August 2022 notes EF ~ 71% * resume cardiac meds when able I will continue to follow patient with you while she remains hospitalized and make further recommendations depending on her hospital course. Thank you for allowing me to participate in the care of this patient. History of Present Illness Reason for Consult Consult date: 12/02/22 Reason for consult: acute renal failure and hyperkalemia Chief Complaint Chief complaint: LORENE History of Present Illness Narrative: The patient is a 57-year-old female with a past medical history as outlined below who presented to [facility] Emergency room for further evaluation of generalized weakness. The patient apparently has been having significant issues with arthritis and degenerative joint disease in the last few weeks if not longer. 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 She reports increasing weakness in her lower extremities to the point were apparently on the day of presentation, she could barely stand up. She feels that her legs are giving out on her leading to several falls. Furthermore, she also reports a significant change in her blood pressure with readings in the 80s to 90 systolic when she is normally hypertensive and is on multiple medic
--- NOTE | 2022-12-02 11:51 | PM.CNNEP ---
Assessment and Plan Assessment and plan (1) Acute kidney injury: Code(s): N17.9 - Acute kidney failure, unspecified Status: Acute Assessment and Plan: improving at this time suspect multifactorial: hypotension/hemodynamics instability (on admission) prerenal factors? diuretic therapy TURNER OFF ongoing SHIRA-I use TURNER OFF urinary tract infection evaluation to date: renal ultrasound okay urine electrolytes (by FeUrea) non-prerenal UA consistent with UTI follow trend of repeat labs and UOP (2) Hyperkalemia: Code(s): E87.5 - Hyperkalemia Status: Acute Assessment and Plan: partly related to LORENE/ARF however, suspect more so secondary to previous spironolactone use as the half life of this medication increases greatly in the context of LORENE/ARF dose with lokelma x 1 today follow repeat K+ levels (3) Hypotension: Qualifiers: Hypotension type: unspecified hypotension type Qualified Code(s): I95.9 - Hypotension, unspecified Code(s): I95.9 - Hypotension, unspecified Status: Acute Assessment and Plan: resolved BP closer to normal range slowly resume home medications (4) UTI (urinary tract infection): Qualifiers: Hematuria presence: without hematuria Urinary tract infection type: site unspecified Qualified Code(s): N39.0 - Urinary tract infection, site not specified Code(s): N39.0 - Urinary tract infection, site not specified Status: Acute Assessment and Plan: UA highly suggestive urine culture with E.coli on antibiotics (5) Anemia: Code(s): D64.9 - Anemia, unspecified Status: Chronic Assessment and Plan: stable in comparison to labs in June 2022 follow trend of H/H (6) Cardiomyopathy: Qualifiers: Cardiomyopathy type: unspecified Qualified Code(s): I42.9 - Cardiomyopathy, unspecified Code(s): I42.9 - Cardiomyopathy, unspecified Status: Resolved Assessment and Plan: as noted by Echo in June 2022 however, repeat Echo in August 2022 notes EF ~ 71% resume cardiac meds when able I will continue to follow patient with you while she remains hospitalized and make further recommendations depending on her hospital course. Thank you for allowing me to participate in the care of this patient. History of Present Illness Reason for Consult Consult date: 12/02/22 Reason for consult: acute renal failure and hyperkalemia Chief Complaint Chief complaint: LORENE History of Present Illness Narrative: The patient is a 57-year-old female with a past medical history as outlined below who presented to [facility] Emergency room for further evaluation of generalized weakness. The patient apparently has been having significant issues with arthritis and degenerative joint disease in the last few weeks if not longer. 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 She reports increasing weakness in her lower extremities to the point were apparently on the day of presentation, she could barely stand up. She feels that her legs are giving out on her leading to several falls. Furthermore, she also reports a significant change in her blood pressure with readings in the 80s to 90 systolic when she is normally hypertensive and is on multiple medications for this. Additionally, she also complains of symptoms of urinary frequency and dysuria concerning for possible urinary tract infection. She gave no acute complaints of fevers, chills, diaphoresis, cold/ flu symptoms, chest pain, shortness of breath, nausea, vomiting, or diarrhea. Given the persistence of these above symptoms, she presented to [facility] the ER for further assessment Workup and evaluation emergency room demonstrate
[2022-12-02] MEDS: FLUCONAZOLE 150 MG TABLET PO (14:45)
[2022-12-02] MEDS: DULoxetine HCL 30 MG CAPSULE.DR PO (20:35)
[2022-12-02] MEDS: oxyCODONE/ACETAMINOPHEN (*CRX) 5-325 MG TABLET 1 TABLET PO (20:35)
[2022-12-03] VITALS: PULSE 54
[2022-12-03 04:00] VITALS: PULSE 56
[2022-12-03 06:00] VITALS: BP 151/72; PULSE 56; RESP 14; TEMP 35.7; O2SAT 98
[2022-12-03] MEDS: LEVOTHYROXINE SODIUM 150 MCG TABLET PO (06:12)
[2022-12-03 06:21] LABS: Basophils Percent Auto 0.4 % (0.2-1.2); Eosinophils Absolute Auto 0.3 K/mm3 (0-0.3); Eosinophils Percent Auto 4.3 % (0-4.4); Hematocrit 33.8 % (37.0-47.0); Hemoglobin 10.4 g/dL (12.0-15.0); Immature Granulocyte Absolute 0.01 K/mm3 (0.00-0.031); Immature Granulocyte Percent A 0.1 % (0-0.5); Lymphocytes Absolute Auto 2.82 K/mm3 (0.9-3.2); Mean Corpuscular HGB Conc 30.8 g/dl (32-36); Mean Corpuscular Hemoglobin 30.9 pg (26-34); Mean Corpuscular Volume 100.3 fl (80-100); Mean Platelet Volume 9.7 fl (7.4-10.4); Monocytes Absolute Auto 0.5 K/mm3 (0.1-0.6); Monocytes Percent Auto 6.1 % (2.6-8.5); Neutrophils Absolute Auto 3.8 K/mm3 (1.3-6.7); Neutrophils Percent Auto 51.1 % (45.5-73.1); Platelet Count Result 211 k/mm3 (150-375); Red Blood Count 3.37 M/mm3 (4.2-5.4); Red Cell Distribution Width 13.6 % (11.5-14.5); White Blood Count 7.4 K/mm3 (4.5-10.0)
[2022-12-03 07:09] LABS: Alanine Aminotransferase 17 U/L (6-35); Albumin Level 4.3 g/dL (3.5-5.1); Alkaline Phosphatase 75 U/L (38-126); Anion Gap 9 mmol/L (8-16); Aspartate Amino Transferase 21 U/L (14-36); Bilirubin,Total 0.4 mg/dL (0.2-1.3); Blood Urea Nitrogen 20 mg/dL (7-17); Carbon Dioxide 28 mmol/L (22-30); Chloride 103 mmol/L (98-107); Estimated CRCL calculation 47 ml/min; Estimated Glomerular Filt Rate 39; Glucose 95 mg/dL (65-110); Potassium 4.6 mmol/L (3.4-5.0); Sodium 140 mmol/L (137-145)
[2022-12-03 08:00] VITALS: PULSE 70; RESP 14; O2SAT 98
--- NOTE | 2022-12-03 08:19 | P.PNIM_ITS ---
Progress Note: A&P Assessment and Plan (1) Acute kidney injury: Code(s): N17.9 - Acute kidney failure, unspecified Status: Acute Assessment and Plan: * BUN/Cr elevated at admission 55/2.60 * Fluids given in the ED, and continued * Current BUN/Cr 20/1.40 * Lasix and lisinopril on hold for now * Renal ultrasound negative for any findings * Continue to trend labs * Avoid nephrotoxic medications * renal adjust medications * FENa was 3.3%, intrinsic disease (2) Hypotension: Qualifiers: Hypotension type: unspecified hypotension type Qualified Code(s): I95.9 - Hypotension, unspecified Code(s): I95.9 - Hypotension, unspecified Status: Acute Assessment and Plan: * BP noted to be 76/61 upon arrival * Current BP is 151/72 * Most likely related to dehydration and over diuresis or over treatment of hypertension * Hold antihypertensives, restart clonidine for now * Trend BP * Adjust therapy as indicated * Orthostatic blood pressures negative (3) Weakness: Code(s): R53.1 - Weakness Status: Acute Assessment and Plan: * Likely related to acute kidney injury and possible urinary tract infection. * Does have chronic back pain * MRI showed degenerative changes * Neurosurgery consulted * PT/OT when appropiate (4) Abnormal urinalysis: Code(s): R82.90 - Unspecified abnormal findings in urine Status: Acute Assessment and Plan: * UA possibly infectious * Complaints of frequency * Last Culture reported E.Coli, and was treated with Macrobid * Ceftriaxone, change to PO cefdinir * Cultures came back with E. Coli * Adjust antibiotics to sensitivities (5) Chronic anemia: Code(s): D64.9 - Anemia, unspecified Status: Acute Assessment and Plan: * Current H/H 10.4/33.8 * Hemoglobin is stable on review of previous labs. * Consider anemia labs * trend labs * Adjust therapy as indicated (6) Cardiomyopathy: Qualifiers: Cardiomyopathy type: unspecified Qualified Code(s): I42.9 - Cardiomyopathy, unspecified Code(s): I42.9 - Cardiomyopathy, unspecified Status: Resolved Assessment and Plan: * Clinically compensated in fact a bit dry. * Monitor volume status closely while hydrating * Echo from 06/27/22 showed EF of 20-25% with grade 3 diastolic dysfunction * BNP stable at 756 * Lasix as hold * daily weights (7) Chronic back pain: Qualifiers: Back pain location: low back pain Back pain laterality: unspecified Sciatica presence: unspecified whether sciatica present Qualified Code(s): M54.50 - Low back pain, unspecified; G89.29 - Other chronic pain Code(s): M54.9 - Dorsalgia, unspecified; G89.29 - Other chronic pain Status: Acute Assessment and Plan: * Stated she is on Methadone * Continue as indicated * Neurosurgery consulted * Order PT in and out patient * Consider adding muscle relaxer * Stable (8) Rheumatoid arthritis: Qualifiers: Rheumatoid arthritis location: unspecified site Rheumatoid factor presence: unspecified presence Qualified Code(s): M06.9 - Rheumatoid arthritis, unspecified Code(s): M06.9 - Rheumato
--- NOTE | 2022-12-03 08:19 | PM.IMPN ---
Progress Note: A&P Assessment and Plan (1) Acute kidney injury: Code(s): N17.9 - Acute kidney failure, unspecified Status: Acute Assessment and Plan: BUN/Cr elevated at admission 55/2.60 Fluids given in the ED, and continued Current BUN/Cr 20/1.40 Lasix and lisinopril on hold for now Renal ultrasound negative for any findings Continue to trend labs Avoid nephrotoxic medications renal adjust medications FENa was 3.3%, intrinsic disease (2) Hypotension: Qualifiers: Hypotension type: unspecified hypotension type Qualified Code(s): I95.9 - Hypotension, unspecified Code(s): I95.9 - Hypotension, unspecified Status: Acute Assessment and Plan: BP noted to be 76/61 upon arrival Current BP is 151/72 Most likely related to dehydration and over diuresis or over treatment of hypertension Hold antihypertensives, restart clonidine for now Trend BP Adjust therapy as indicated Orthostatic blood pressures negative (3) Weakness: Code(s): R53.1 - Weakness Status: Acute Assessment and Plan: Likely related to acute kidney injury and possible urinary tract infection. Does have chronic back pain MRI showed degenerative changes Neurosurgery consulted PT/OT when appropiate (4) Abnormal urinalysis: Code(s): R82.90 - Unspecified abnormal findings in urine Status: Acute Assessment and Plan: UA possibly infectious Complaints of frequency Last Culture reported E.Coli, and was treated with Macrobid Ceftriaxone, change to PO cefdinir Cultures came back with E. Coli Adjust antibiotics to sensitivities (5) Chronic anemia: Code(s): D64.9 - Anemia, unspecified Status: Acute Assessment and Plan: Current H/H 10.4/33.8 Hemoglobin is stable on review of previous labs. Consider anemia labs trend labs Adjust therapy as indicated (6) Cardiomyopathy: Qualifiers: Cardiomyopathy type: unspecified Qualified Code(s): I42.9 - Cardiomyopathy, unspecified Code(s): I42.9 - Cardiomyopathy, unspecified Status: Resolved Assessment and Plan: Clinically compensated in fact a bit dry. Monitor volume status closely while hydrating Echo from 06/27/22 showed EF of 20-25% with grade 3 diastolic dysfunction BNP stable at 756 Lasix as hold daily weights (7) Chronic back pain: Qualifiers: Back pain location: low back pain Back pain laterality: unspecified Sciatica presence: unspecified whether sciatica present Qualified Code(s): M54.50 - Low back pain, unspecified; G89.29 - Other chronic pain Code(s): M54.9 - Dorsalgia, unspecified; G89.29 - Other chronic pain Status: Acute Assessment and Plan: Stated she is on Methadone Continue as indicated Neurosurgery consulted Order PT in and out patient Consider adding muscle relaxer Stable (8) Rheumatoid arthritis: Qualifiers: Rheumatoid arthritis location: unspecified site Rheumatoid factor presence: unspecified presence Qualified Code(s): M06.9 - Rheumatoid arthritis, unspecified Code(s): M06.9 - Rheumatoid arthritis, unspecified Status: Acute Assessment and Plan: She is on Humira q.2 weeks. (9) Hypothyroidism: Qualifiers: Hypothyroidism type: unspecified Qualified Code(s): E03.9 - Hypothyroidism, unspecified Code(s): E03.9 - Hypothyroidism, unspecified Status: Acute Assessment and Plan: Continue levothyroxine TSH 8.830 T4 1.05 T3 0.76 (10) Seizures: Code(s): R56.9 - Unspecified convulsions Status: Acute Assessment and Plan: Continue levetiracetam Seizures precautions (11) Polymorphic ventricular tachycardia: Code(s): I47.29 - Other ventricul
[2022-12-03 09:51] VITALS: PULSE 70
[2022-12-03] MEDS: cloNIDine HCL 0.2 MG TABLET PO (09:51)
[2022-12-03] MEDS: DULoxetine HCL 60 MG CAPSULE.DR PO (09:51)
[2022-12-03] MEDS: AMIODARONE HCL 200 MG TABLET PO (09:51)
[2022-12-03] MEDS: PANTOPRAZOLE 40 MG TABLET PO (09:51)
[2022-12-03 09:52] VITALS: PULSE 70
[2022-12-03] MEDS: levETIRAcetam 500 MG TABLET PO (09:52)
[2022-12-03] MEDS: carvediloL 6.25 MG TABLET PO (09:52)
[2022-12-03] MEDS: methADONE HCL (*CRX) 10 MG TABLET 80 MG PO (09:54)
--- NOTE | 2022-12-03 11:00 | PM.DS ---
DS: Admitting Diagnosis Discharge Date 12/03/22 1100 Admitting Diagnosis LORENE, UTI, Hypotension, DS: Discharge Diagnosis Discharge Diagnosis (1) Acute kidney injury: Code(s): N17.9 - Acute kidney failure, unspecified Status: Acute Assessment and Plan: BUN/Cr elevated at admission 55/2.60 Fluids given in the ED, and continued Current BUN/Cr 20/1.40 Lasix and lisinopril on hold for now Renal ultrasound negative for any findings Continue to trend labs Avoid nephrotoxic medications renal adjust medications FENa was 3.3%, intrinsic disease (2) Hypotension: Qualifiers: Hypotension type: unspecified hypotension type Qualified Code(s): I95.9 - Hypotension, unspecified Code(s): I95.9 - Hypotension, unspecified Status: Acute Assessment and Plan: BP noted to be 76/61 upon arrival Current BP is 151/72 Most likely related to dehydration and over diuresis or over treatment of hypertension Hold antihypertensives, restart clonidine for now Trend BP Adjust therapy as indicated Orthostatic blood pressures negative (3) Weakness: Code(s): R53.1 - Weakness Status: Acute Assessment and Plan: Likely related to acute kidney injury and possible urinary tract infection. Does have chronic back pain MRI showed degenerative changes Neurosurgery consulted PT/OT when appropiate (4) Abnormal urinalysis: Code(s): R82.90 - Unspecified abnormal findings in urine Status: Acute Assessment and Plan: UA possibly infectious Complaints of frequency Last Culture reported E.Coli, and was treated with Macrobid Ceftriaxone, change to PO cefdinir Cultures came back with E. Coli Adjust antibiotics to sensitivities (5) Chronic anemia: Code(s): D64.9 - Anemia, unspecified Status: Acute Assessment and Plan: Current H/H 10.4/33.8 Hemoglobin is stable on review of previous labs. Consider anemia labs trend labs Adjust therapy as indicated (6) Cardiomyopathy: Qualifiers: Cardiomyopathy type: unspecified Qualified Code(s): I42.9 - Cardiomyopathy, unspecified Code(s): I42.9 - Cardiomyopathy, unspecified Status: Resolved Assessment and Plan: Clinically compensated in fact a bit dry. Monitor volume status closely while hydrating Echo from 06/27/22 showed EF of 20-25% with grade 3 diastolic dysfunction BNP stable at 756 Lasix as hold daily weights (7) Chronic back pain: Qualifiers: Back pain laterality: unspecified Back pain location: low back pain Sciatica presence: unspecified whether sciatica present Qualified Code(s): M54.50 - Low back pain, unspecified; G89.29 - Other chronic pain Code(s): M54.9 - Dorsalgia, unspecified; G89.29 - Other chronic pain Status: Acute Assessment and Plan: Stated she is on Methadone Continue as indicated Neurosurgery consulted Order PT in and out patient Consider adding muscle relaxer Stable (8) Rheumatoid arthritis: Qualifiers: Rheumatoid arthritis location: unspecified site Rheumatoid factor presence: unspecified presence Qualified Code(s): M06.9 - Rheumatoid arthritis, unspecified Code(s): M06.9 - Rheumatoid arthritis, unspecified Status: Acute Assessment and Plan: She is on Humira q.2 weeks. (9) Hypothyroidism: Qualifiers: Hypothyroidism type: unspecified Qualified Code(s): E03.9 - Hypothyroidism, unspecified Code(s): E03.9 - Hypothyroidism, unspecified Status: Acute Assessment and Plan: Continue levothyroxine TSH 8.830 T4 1.05 T3 0.76 (10) Seizures: Code(s): R56.9 - Unspecified convulsions Status: Acute Assessment and Plan: Continue levetiracetam Seizures preca
--- NOTE | 2022-12-03 11:00 | P.DS_ITS ---
DS: Admitting Diagnosis Discharge Date 12/03/22 1100 Admitting Diagnosis LORENE, UTI, Hypotension, DS: Discharge Diagnosis Discharge Diagnosis (1) Acute kidney injury: Code(s): N17.9 - Acute kidney failure, unspecified Status: Acute Assessment and Plan: * BUN/Cr elevated at admission 55/2.60 * Fluids given in the ED, and continued * Current BUN/Cr 20/1.40 * Lasix and lisinopril on hold for now * Renal ultrasound negative for any findings * Continue to trend labs * Avoid nephrotoxic medications * renal adjust medications * FENa was 3.3%, intrinsic disease (2) Hypotension: Qualifiers: Hypotension type: unspecified hypotension type Qualified Code(s): I95.9 - Hypotension, unspecified Code(s): I95.9 - Hypotension, unspecified Status: Acute Assessment and Plan: * BP noted to be 76/61 upon arrival * Current BP is 151/72 * Most likely related to dehydration and over diuresis or over treatment of hypertension * Hold antihypertensives, restart clonidine for now * Trend BP * Adjust therapy as indicated * Orthostatic blood pressures negative (3) Weakness: Code(s): R53.1 - Weakness Status: Acute Assessment and Plan: * Likely related to acute kidney injury and possible urinary tract infection. * Does have chronic back pain * MRI showed degenerative changes * Neurosurgery consulted * PT/OT when appropiate (4) Abnormal urinalysis: Code(s): R82.90 - Unspecified abnormal findings in urine Status: Acute Assessment and Plan: * UA possibly infectious * Complaints of frequency * Last Culture reported E.Coli, and was treated with Macrobid * Ceftriaxone, change to PO cefdinir * Cultures came back with E. Coli * Adjust antibiotics to sensitivities (5) Chronic anemia: Code(s): D64.9 - Anemia, unspecified Status: Acute Assessment and Plan: * Current H/H 10.4/33.8 * Hemoglobin is stable on review of previous labs. * Consider anemia labs * trend labs * Adjust therapy as indicated (6) Cardiomyopathy: Qualifiers: Cardiomyopathy type: unspecified Qualified Code(s): I42.9 - Cardiomyopathy, unspecified Code(s): I42.9 - Cardiomyopathy, unspecified Status: Resolved Assessment and Plan: * Clinically compensated in fact a bit dry. * Monitor volume status closely while hydrating * Echo from 06/27/22 showed EF of 20-25% with grade 3 diastolic dysfunction * BNP stable at 756 * Lasix as hold * daily weights (7) Chronic back pain: Qualifiers: Back pain laterality: unspecified Back pain location: low back pain Sciatica presence: unspecified whether sciatica present Qualified Code(s): M54.50 - Low back pain, unspecified; G89.29 - Other chronic pain Code(s): M54.9 - Dorsalgia, unspecified; G89.29 - Other chronic pain Status: Acute Assessment and Plan: * Stated she is on Methadone * Continue as indicated * Neurosurgery consulted * Order PT in and out patient * Consider adding muscle relaxer * Stable (8) Rheumatoid arthritis: Qualifiers: Rheumatoid arthritis location: unspecified site Rheumatoid factor pres
[2022-12-05 12:18] LABS: Osmolality, Urine 240 mOsm/kg (50-1200)
== END 2022-12-03 14:20 | disposition home or self-care (01) | DRG 690 ==
LOC: ANHED 14:18 → ANH3MEDSUR 16:04
PROVIDERS: Physician Assistant; Admitting Provider Internal Medicine; Emergency Provider Emergency Medicine; PCP Family Medicine; Visit Provider Nurse Practitioner
DX: N39.0 Urinary tract infection, site not specified (principal); I42.9 Cardiomyopathy, unspecified; I47.29 Other ventricular tachycardia; I95.89 Other hypotension; B96.20 Unspecified Escherichia coli [E. coli] as the cause of diseases classified elsewhere; D64.9 Anemia, unspecified; M54.50 Low back pain, unspecified; G89.29 Other chronic pain; M06.9 Rheumatoid arthritis, unspecified; E03.9 Hypothyroidism, unspecified; R56.9 Unspecified convulsions; E87.5 Hyperkalemia; I25.10 Atherosclerotic heart disease of native coronary artery without angina pectoris; M19.90 Unspecified osteoarthritis, unspecified site; K21.9 Gastro-esophageal reflux disease without esophagitis; F41.8 Other specified anxiety disorders; M54.16 Radiculopathy, lumbar region; L40.9 Psoriasis, unspecified; M43.16 Spondylolisthesis, lumbar region; R35.0 Frequency of micturition; E78.5 Hyperlipidemia, unspecified; N32.81 Overactive bladder; Z86.19 Personal history of other infectious and parasitic diseases; Z90.49 Acquired absence of other specified parts of digestive tract; Z87.891 Personal history of nicotine dependence
CPT/HCPCS: 36415; 71046; 72114; 76775; 80048; 80053; 81001; 82550; 82570; 83605; 83690; 83735; 83880; 83935; 84100; 84133; 84300; 84439; 84443; 84480; 84484; 84540; 85025; 85610; 85730; 86140; 87077; 87086; 87186; 93005; 96361; 96365; 96367; 96376; 97162; 99285; A9270; G0378; J0696; J3475; J7030; J7120

== ENCOUNTER 2023-01-29 08:19 | Outpatient (CLI) | payer MEDICARE, MEDICAID, SELFPAY ==
--- NOTE | ~2023-01-29 | XR_ITS ---
AP view of the pelvis and AP and lateral views of the left hip Clinical history: Pain Findings: No acute fracture or dislocation is seen. Osseous alignment is anatomic. Bilateral hip and SI joint spaces are preserved. Soft tissues are unremarkable. Impression: No significant abnormality is seen. Reviewed, dictated and finalized at [facility]. Impression: No significant abnormality is seen.
== END 2023-01-29 08:20 | disposition home or self-care (01) ==
LOC: CHSIMG 08:21
PROVIDERS: PCP Physician Assistant; Visit Provider Orthopaedic Surgery
DX: M25.552 Pain in left hip (principal)
CPT/HCPCS: 73502

== ENCOUNTER 2023-02-01 12:43 | Outpatient (CLI) | payer MEDICARE, MEDICAID, SELFPAY ==
[2023-02-01 13:01] LABS: Basophils Absolute Auto 0.03 K/mm3 (0.00-0.10); Basophils Percent Auto 0.5 % (0.0-1.0); Eosinophils Absolute Auto 0.29 K/mm3 (0.02-0.50); Eosinophils Percent Auto 4.4 % (1.0-6.0); Hematocrit 32.1 % (35.0-49.0); Hemoglobin 10.4 g/dL (12.0-15.0); Immature Granulocyte Absolute 0.02 K/mm3 (0.00-0.00); Immature Granulocyte Percent A 0.3 % (0.0-0.0); Lymphocytes Absolute Auto 2.04 K/mm3 (1.10-4.50); Lymphocytes Percent Auto 31.1 % (18.0-42.0); Mean Corpuscular HGB Conc 32.4 g/dL (32.0-36.0); Mean Corpuscular Volume 98.8 fL (78.0-102.0); Mean Platelet Volume 9.3 fl (9.2-11.8); Monocytes Absolute Auto 0.52 K/mm3 (0.10-0.90); Monocytes Percent Auto 7.9 % (2.0-11.0); Neutrophils Absolute Auto 3.7 K/mm3 (1.7-7.2); Neutrophils Percent Auto 55.8 % (50.0-70.0); Platelet Count Result 194 K/mm3 (150-420); Red Blood Count 3.25 M/mm3 (4.20-5.40); Red Cell Distribution Width 13.5 % (11.6-14.4); White Blood Count 6.6 K/mm3 (4.8-10.8)
[2023-02-01 13:03] LABS: Appearance Urine Clear (Clear); Bilirubin Urine Negative (Negative); Blood Urine Negative (Negative); Color Urine Light Yellow (Yellow); Glucose Urine UA Negative (Negative); Ketones Urine Negative (Negative); Leukocyte Esterase Ur 1+ LEU/UL (Negative); Nitrate Urine Negative (Negative); Protein Urine Negative (Negative); Urobilinogen Urine 0.2 mg/dL (0.2-1.0); pH Urine 5.5 (5.0-8.0)
--- NOTE | 2023-02-01 13:04 | ECG_ITS ---
Measurements Intervals [place] Rate: 57 P: -9 ME: 147 QRS: 66 QRSD: 98 T: 91 QT: 468 QTc: 458 Interpretive Statements SINUS BRADYCARDIA LOW QRS VOLTAGE IN LIMB LEADS BORDERLINE T WAVE ABNORMALITY- HIGH LATERAL LEADS BORDERLINE ECG COMPARED TO ECG 11/29/2022 12:06:09 NO SIGNIFICANT CHANGES Electronically Signed On 02-01-2023 13:32:18 CDT by Felix Douglass D.O.
[2023-02-01 13:15] LABS: Add Urine Microscopic? YES; Bacteria Urine 1+ /hpf; RBC Urine None seen /hpf (0-2); Squamous Epithelial Cell Urine Few /hpf (Few)
[2023-02-01 15:17] LABS: Alanine Aminotransferase 27 U/L (14-59); Albumin Level 3.8 g/dL (3.4-5.0); Alkaline Phosphatase 100 U/L (46-116); Anion Gap 7 mmol/L (8-16); Aspartate Amino Transferase 12 U/L (15-37); Bilirubin,Total 0.2 mg/dL (0.00-1.00); Blood Urea Nitrogen 20 mg/dL (7-18); Calcium 8.6 mg/dL (8.5-10.1); Carbon Dioxide 28 mmol/L (21-32); Chloride 106 mmol/L (98-108); Cholesterol 146 mg/dL (0-200); Estimated Glomerular Filt Rate 34; Free T4 Free Thyroxine 0.82 ng/dL (0.76-1.46); Glucose 114 mg/dL (70-99); HDL Direct 58 mg/dL (40-60); LDL Cholesterol Calculated 64 mg/dL (<130); Osmolality Calculated 295 mOsm/kg (285-295); Potassium 4.3 mmol/L (3.5-5.1); Sodium 141 mmol/L (136-145); Thyroid Stimulating Hormone 7.18 uIU/mL (0.36-3.74); Total Protein 6.7 g/dL (6.4-8.2); Triglycerides 119 mg/dL (0-150)
== END 2023-02-01 12:44 | disposition home or self-care (01) ==
LOC: CHSLAB 12:49
PROVIDERS: PCP Family Medicine; Visit Provider Physician Assistant
DX: I46.9 Cardiac arrest, cause unspecified (principal); R39.9 Unspecified symptoms and signs involving the genitourinary system; E78.2 Mixed hyperlipidemia; D64.9 Anemia, unspecified; E03.9 Hypothyroidism, unspecified; L40.9 Psoriasis, unspecified; R00.1 Bradycardia, unspecified; R82.90 Unspecified abnormal findings in urine
CPT/HCPCS: 36415; 80053; 80061; 81001; 84439; 84443; 85025; 87086; 93005

== ENCOUNTER 2023-02-19 11:34 | Outpatient (CLI) | payer MEDICARE, MEDICAID, SELFPAY ==
[2023-02-19 12:25] LABS: Creatinine Urine 23.06 mg/dL (40-278); Total Protein Urine Random < 6.0 mg/dL (0.0-11.9); Ur Ttl Prot Creatinine Ratio 0.26 mg/mg (0-0.20)
[2023-02-19 12:29] LABS: Albumin Level 3.9 g/dL (3.4-5.0); Anion Gap 11 mmol/L (8-16); Blood Urea Nitrogen 25 mg/dL (7-18); Calcium 8.6 mg/dL (8.5-10.1); Carbon Dioxide 28 mmol/L (21-32); Chloride 100 mmol/L (98-108); Estimated Glomerular Filt Rate 28; Glucose 86 mg/dL (70-99); Osmolality Calculated 291 mOsm/kg (285-295); Potassium 4.1 mmol/L (3.5-5.1); Sodium 139 mmol/L (136-145)
[2023-02-21 21:21] LABS: Vitamin D 25 Hydroxy 10 ng/mL (30-100)
[2023-02-24 22:44] LABS: Parathyroid Intact 146 pg/mL (14-64)
== END 2023-02-19 11:35 | disposition home or self-care (01) ==
LOC: CHSLAB 11:36
PROVIDERS: PCP Family Medicine; Visit Provider Internal Medicine Nephrology
DX: N25.81 Secondary hyperparathyroidism of renal origin (principal); E55.9 Vitamin D deficiency, unspecified; N18.32 Chronic kidney disease, stage 3b
CPT/HCPCS: 36415; 80069; 82306; 82570; 83970; 84156

== ENCOUNTER 2023-03-09 17:04 | Emergency (ER) | payer MEDICARE, MEDICAID, SELFPAY ==
--- NOTE | 2023-03-09 17:15 | ED.URI ---
HPI - URI/Sore Throat General Chief Complaint: Upper Respiratory Infection Stated Complaint: +COVID Time Seen by Provider: 03/09/23 17:15 Source: patient Mode of arrival: ambulatory Limitations: no limitations History of Present Illness HPI Narrative: 57 yo F presents with c/o bodyaches, chills, congestion and cough started yesterday. took home covid test today that was positive. Pt taking Humira and requesting treatment with antiviral. Denies CP/SOB. Well appearing. ambulatory with steady gait. All systems reviewed and negative except as noted above. Related Data Home Medications Medication Instructions Recorded Confirmed clonidine HCl 0.2 mg tablet 0.2 mg PO DAILY 12/06/19 03/09/23 duloxetine 30 mg capsule,delayed 30 mg PO HS 12/06/19 03/09/23 release duloxetine 60 mg capsule,delayed 60 mg PO DAILY 12/06/19 03/09/23 release omeprazole 20 mg capsule,delayed 20 mg PO DAILY 12/06/19 03/09/23 release adalimumab 40 mg/0.4 mL 40 mg subcut [id number] 11/29/22 03/09/23 subcutaneous pen kit (Humira(CF) Pen) atorvastatin 40 mg tablet 40 mg PO QPM 02/28/23 03/09/23 levothyroxine 175 mcg tablet 175 mcg PO DAILY 02/28/23 03/09/23 mirabegron 50 mg tablet,extended 50 mg PO DAILY 02/28/23 03/09/23 release 24 hr (Myrbetriq) potassium chloride 20 mEq 20 meq PO USEASDIRECTD 02/28/23 03/09/23 tablet,extended release(part/cryst) (Klor-Con M) amiodarone 200 mg tablet 200 mg PO DAILY 03/09/23 03/09/23 eszopiclone 2 mg tablet 2 mg PO ONCE useasdirected 03/09/23 03/09/23 methadone 40 mg soluble tablet 80 mg PO DAILY 03/09/23 03/09/23 spironolactone 25 mg tablet 25 mg PO DAILY 03/09/23 03/09/23 Allergies Allergy/AdvReac Type Severity Reaction Status Date / Time adhesive Allergy Unknown BLISTERS Verified 02/28/23 08:49 methotrexate Allergy Rash Verified 02/28/23 08:49 Review of Systems Review of Systems: CONSTITUTIONAL: Denies fever, chills, or sweats. EYES: Denies visual changes, redness, or discharge. ENT: Reports rhinorrhea, congestion. Denies sore throat, or otalgia. CARDIOVASCULAR: Denies chest pain, palpitations, or edema. RESPIRATORY: Reports cough. Denies dyspnea. GASTROINTESTINAL: Denies abdominal pain, nausea, vomiting, or diarrhea. GENITOURINARY: Denies dysuria or hematuria. SKIN: Denies rash or itching. MUSCULOSKELETAL: Denies back pain, joint pain. Reports myalgia. NEUROLOGIC: Denies headache, numbness, or weakness. PSYCHIATRIC: Denies anxiety or depression. All other systems reviewed are negative, except as documented in HPI. [facility] Past Medical History Medical History Allergies Anxiety with depression Asthma Cardiomyopathy Chronic anemia Chronic back pain COPD (chronic obstructive pulmonary disease) GERD (gastroesophageal reflux disease) Heart attack Hepatitis C Hyperlipidemia Hypertension Hypothyroidism Kidney stone Meningitis Overactive bladder Polymorphic ventricular tachycardia Rheumatoid arthritis Seizures Skull fracture Spontaneous dissection of coronary artery Syncope and collapse Thyroid disorder Surgical History Surgical History History of appendectomy History of cardiac catheterization History of tubal ligation (01/2004) History of vein stripping Family History Family History Father Malignant neoplasm of prostate Hypertension Renal disease Heart disease Mother Hypertension Heart disease Thyroid disorder Grandparent Cancer Hypertension Heart disease Cerebrovascular accident Son Asthma Grandparent Cancer Heart problem Social History Social History Social History: Roslyn has gotten her flu, tetanus, and pneumonia vaccine. Has had a colonoscopy. Has had a blood transfusion back in 1968(date unknown). She drinks 6 cups of cola/day
[2023-03-09 17:17] VITALS: BP 91/78; PULSE 70; RESP 16; TEMP 37.6; O2SAT 98
[2023-03-09 17:23] VITALS: BP 91/78; PULSE 70; RESP 16; TEMP 37.6; O2SAT 98
== END 2023-03-09 17:42 | disposition home or self-care (01) ==
PROVIDERS: Emergency Provider Nurse Practitioner Family; PCP Physician Assistant
DX: U07.1 COVID-19 (principal); F17.290 Nicotine dependence, other tobacco product, uncomplicated; J44.9 Chronic obstructive pulmonary disease, unspecified; K21.9 Gastro-esophageal reflux disease without esophagitis; I25.2 Old myocardial infarction; E78.5 Hyperlipidemia, unspecified; I10 Essential (primary) hypertension; E03.9 Hypothyroidism, unspecified; M06.9 Rheumatoid arthritis, unspecified; I42.9 Cardiomyopathy, unspecified
CPT/HCPCS: 99213; G0463

== ENCOUNTER 2023-04-26 13:11 | Outpatient (CLI) | payer MEDICARE, MEDICAID, SELFPAY ==
[2023-04-26 14:18] LABS: Albumin Level 3.7 g/dL (3.4-5.0); Anion Gap 10 mmol/L (8-16); Blood Urea Nitrogen 11 mg/dL (7-18); Carbon Dioxide 28 mmol/L (21-32); Chloride 105 mmol/L (98-108); Estimated Glomerular Filt Rate 41; Glucose 103 mg/dL (70-99); Osmolality Calculated 295 mOsm/kg (285-295); Phosphorus 4.7 mg/dL (2.6-4.7); Potassium 4.1 mmol/L (3.5-5.1); Sodium 143 mmol/L (136-145)
[2023-04-29 15:56] LABS: Albumin 3.9 g/dL (3.8-4.8); Alpha 1 Globulin 0.4 g/dL (0.2-0.3); Alpha 2 Globulin 0.8 g/dL (0.5-0.9); Beta 1 Globulin 0.5 g/dL (0.4-0.6); Gamma Globulin 1.1 g/dL (0.8-1.7)
[2023-04-30 09:07] LABS: Complement C3 146 mg/dL (83-193)
[2023-04-30 10:21] LABS: Anti Glomerular Basement Memb <1.0 AI (<1.0)
[2023-05-02 14:48] LABS: ANCA Screen Negative (Negative)
[2023-05-04 01:27] LABS: Creatinine, Random Urine 66 mg/dL (20-275); Total Protein/Creatinine Ratio 167 mg/g creat (24-184)
== END 2023-04-26 13:12 | disposition home or self-care (01) ==
LOC: CHSLAB 13:15
PROVIDERS: PCP Family Medicine; Visit Provider Internal Medicine Nephrology
DX: I12.9 Hypertensive chronic kidney disease with stage 1 through stage 4 chronic kidney disease, or unspecified chronic kidney disease (principal); N17.9 Acute kidney failure, unspecified; N18.32 Chronic kidney disease, stage 3b; R79.89 Other specified abnormal findings of blood chemistry
CPT/HCPCS: 36415; 80069; 82570; 83520; 84155; 84156; 84165; 84166; 86036; 86038; 86160; 86225

== ENCOUNTER 2023-05-03 10:41 | Outpatient (CLI) | payer MEDICARE, MEDICAID, SELFPAY ==
--- NOTE | ~2023-05-03 | US_ITS ---
Renal-Bladder ultrasound Clinical History: Chronic kidney disease Technique: Real-time sonographic imaging of the kidneys and urinary bladder was performed. Findings: The right kidney measures 11.5 cm in length and the left kidney measures 10.6 cm. There is no hydronephrosis or renal calculus identified. Renal cortical echogenicity is within normal limits. No renal mass lesion is identified. The urinary bladder is moderately distended at the time of this exam. No intraluminal echoes are iden tified. No abnormal wall thickening is seen. Impression: Unremarkable ultrasound of the kidneys and urinary bladder. Reviewed, dictated and finalized at location M. Impression: Unremarkable ultrasound of the kidneys and urinary bladder.
[2023-05-03 11:21] LABS: Creatinine Urine 41.38 mg/dL (40-278); Total Protein Urine Random < 7.0 mg/dL (0.0-11.9); Ur Ttl Prot Creatinine Ratio 0.17 mg/mg (0-0.20)
[2023-05-03 13:19] LABS: Eosinophil Urine 0 % (0-0); Urine Eos QC 2nd Tech Confirmed
== END 2023-05-03 10:42 | disposition home or self-care (01) ==
PROVIDERS: PCP Family Medicine; Visit Provider Internal Medicine Nephrology
DX: N17.9 Acute kidney failure, unspecified (principal); I12.9 Hypertensive chronic kidney disease with stage 1 through stage 4 chronic kidney disease, or unspecified chronic kidney disease; N18.32 Chronic kidney disease, stage 3b
CPT/HCPCS: 76775; 82570; 84156; 85999

== ENCOUNTER 2023-05-03 13:40 | Outpatient (CLI) | payer MEDICARE, MEDICAID, SELFPAY ==
--- NOTE | ~2023-05-03 | CT_ITS ---
CT Scan of the Chest without Contrast: Clinical Indication: Lung cancer screening, personal history of nicotine dependence Technique: Contiguous sections were acquired throughout the chest without intravenous contrast. Dose reduction technique was used on this scan by utilizing automated exposure control and iterative recon struction technique. The dose-length product (DLP) was 313.65 mGy-cm. COMPARISON: 06/29/2022 Findings: There is no evidence of any significant mediastinal, hilar or axillary lymphadenopathy. The mediastin al soft tissues appear normal. There is no evidence of pleural or pericardial effusion. The lungs are clear. No pulmonary nodules or infiltrates are noted. Images through the upper abdomen reveal no abnormalities. Impression: Lung RADS 1: Negative. 12 month follow-up screening CT advised. Reviewed, dictated and finalized at location . Impression: Lung RADS 1: Negative. 12 month follow-up screening CT advised.
== END 2023-05-03 13:41 | disposition home or self-care (01) ==
PROVIDERS: PCP Family Medicine; Visit Provider Nurse Practitioner Family
DX: Z12.2 Encounter for screening for malignant neoplasm of respiratory organs (principal); Z87.891 Personal history of nicotine dependence
CPT/HCPCS: 71271

== ENCOUNTER 2023-05-07 06:58 | Day surgery (SDC) | payer MEDICARE, MEDICAID, SELFPAY ==
[2023-04-30 10:07] VITALS: BMI 38.6
--- NOTE | ~2023-05-07 | XR_ITS ---
XR fluoroscopy no charge Procedure: Left L4-5, L5-S1 transforaminal epidural steroid injection TECHNIQUE: Fluoroscopy used during Left L4-5, L5-S1 transforaminal epidural steroid injection perfor med by [Jc Varghese MD] on 05/07/2023. 51 seconds of fluoroscopy 2. with 8 fluoroscopic images captured. FINDINGS: Correlate with procedure note. IMPRESSION: Fluoroscopy used during Left L4-5, L5-S1 transforaminal epidural steroid injection. Reviewed, dictated and finalized at location B. IMPRESSION: Fluoroscopy used during Left L4-5, L5-S1 transforaminal epidural st eroid injection.
--- NOTE | 2023-05-07 05:05 | PM.HPGS ---
History of Present Illness History of Present Illness Consent: Risks, benefits, and alternatives have been discussed and questions answered. Patient agrees to proceed with procedure. Chief complaint: Lumbosacral Radiculopathy Narrative: Roslyn Pardo is a 58 year old female With recalcitrant left lower extremity symptoms can consistent with radiculopathy and neurogenic claudication despite aggressive conservative management over the course of the past several years to include medications, physical therapy and surgical evaluation. Not a surgical candidate. Conservative measures recommended. Patient has yet to undergo trial of epidural steroid injections. MRI suggestive of L4-5 L5-S1 pathology resulting in L4/L5 nerve root compromise. Procedure ordered in January of 2023 and delayed secondary to insurance issues as well as intervening COVID-19 infection. Review of Systems Review of Systems: All systems reviewed & are unremarkable except as noted in HPI and below PMFSH Past Medical History Medical History Allergies Anxiety with depression Asthma Cardiomyopathy Chronic anemia Chronic back pain COPD (chronic obstructive pulmonary disease) GERD (gastroesophageal reflux disease) Heart attack Hepatitis C Hyperlipidemia Hypertension Hypothyroidism Kidney stone Meningitis Overactive bladder Polymorphic ventricular tachycardia Rheumatoid arthritis Seizures Skull fracture Spontaneous dissection of coronary artery Syncope and collapse Thyroid disorder Surgical History Surgical History History of appendectomy History of cardiac catheterization History of tubal ligation (01/2004) History of vein stripping Family History Family History Father Malignant neoplasm of prostate Hypertension Renal disease Heart disease Mother Hypertension Heart disease Thyroid disorder Grandparent Cancer Hypertension Heart disease Cerebrovascular accident Son Asthma Grandparent Cancer Heart problem Social History Social History Social History: Roslyn has gotten her flu, tetanus, and pneumonia vaccine. Has had a colonoscopy. Has had a blood transfusion back in 1968(date unknown). She drinks 6 cups of cola/day. Surrogate medical decision maker: Mindipadmini Ríos, mother. Code status: Full code. Smoking packs per day: 1 Smoking cigarettes per day: 20.0 Years smoked: 35 Smoking pack-years: 35.00 Smoking status: Former smoker Tobacco type: cigarettes and e-cigarettes/vaping Second hand tobacco smoke exposure: Yes Additional smoking assessment comments: PT NOW VAPES Alcohol intake: never Substance use: former Substance use type: heroin Last use: 2019 Lack of Transportation: YES Lack of Food: Sometimes True Current Housing: I Have Housing Concerned About Future Housing: No Difficulty Paying Gas/Electric Bills: No Difficulty Paying for Meds: No Currently Unemployed: No Education: High School Diploma/GED Difficulty w/ Childcare or Family Care: No Living arrangements: alone Additional living arrangements comments: . Lives in [place] with son and daughter. Occupation/Education: other Additional occupation/education comments: Disabled. Gender identity (if verbalized by the patient): Female Sexual Orientation (if Verbalized by the Patient): Straight or Heterosexual Spiritual care concerns: No Agree to blood products: Yes Meds Home Medications and Allergies Home Medications Medication Instructions Recorded Confirmed Type clonidine HCl 0.2 mg tablet 0.2 mg PO DAILY 12/06/19 04/30/23 History duloxetine 30 mg capsule,delayed 30 mg PO HS 12/06/19 04/30/23 History release duloxetine 60 mg capsule,delayed 60 mg PO DAILY 12/06/19 04/30/23 Histor
--- NOTE | 2023-05-07 05:27 | WPDHPUPDATE1 ---
History and Physical Update Update Date/Time: 05/07/23 05:27 History and Physical has been reviewed, including an updated exam of the patient. There are NO changes in the patient's condition. Risks, benefits, and alternatives have been discussed and questions answered. Patient agrees to proceed with procedure.
[2023-05-07 08:46] VITALS: BMI 39.6
[2023-05-07 08:57] VITALS: BP 180/89; PULSE 72; RESP 20; TEMP 36.6; O2SAT 98
[2023-05-07 10:05] VITALS: BP 197/98; PULSE 69; RESP 20; O2SAT 96
[2023-05-07] MEDS: LIDOCAINE HCL 1% PF INJ 5 ML VIAL XX (10:07)
[2023-05-07 10:10] VITALS: BP 183/88; PULSE 69; RESP 20; O2SAT 98
[2023-05-07] MEDS: BETAMETHASONE SODIUM PHOSPHATE PF INJ 6 MG/ML VIAL INFILTRATE (10:11)
[2023-05-07] MEDS: LIDOCAINE HCL 2% PF INJ 5 ML VIAL 2 ML INFILTRATE (10:11)
[2023-05-07 10:18] VITALS: BP 150/50; PULSE 66; RESP 18; O2SAT 100
--- NOTE | 2023-05-07 10:19 | W.PM.PROC2 ---
Procedure Note - Detailed Date of Procedure 05/07/23 Pre-op Diagnosis Lumbosacral Radiculopathy Post-op Diagnosis Same Procedure Performed left L4-5, L5-S1 transforaminal epidural steroid injection under fluoroscopic guidance with contrast control. Surgeon Jc Varghese MD Anesthesia Local Indications Chronic, recalcitrant and activity limiting left low back and lower extremity pain in a lumbosacral distribution unresponsive to more conservative measures and driving escalating opioid analgesic requirements. Description of Procedure INFORMED CONSENT: Risks, benefits and alternatives to the procedure were discussed in detail with the patient who expressed explicit understanding and consent to proceed. Patient was informed verbally and in written form regarding the risks associated with the procedure including the low risk of serious infection, bleeding/bruising, allergic reaction, nerve or organ injury, paralysis, procedural site pain or discomfort, worsening pain and/or mobility, failure to treat and/or disfigurement. The patient expressed explicit understanding and consent to proceed. All materials required for the procedure were available prior to procedure start. Site and side was marked prior to procedure and confirmed in the presence of the patient. PROCEDURE IN DETAIL: The patient was brought to the procedural suite and placed in the prone position. Patient was made comfortable with use of pillows under the head/chest, hips and ankles. Skin overlying the injection site was prepared broadly with ChloraPrep applicator and draped in a sterile manner. Aseptic technique was employed throughout. The endplates of the vertebral body at the site of interest were aligned in the AP view. Ipsilateral oblique angulation was utilized to better visualize the neuroforamen of interest. Local anesthesia was established by infiltration with approximately 5 mL of 2% lidocaine via a 1-1/2 inch 27-gauge needle. A 22-gauge 5.0 inch Law (pencil point) spinal needle was advanced until the needle approached the 6 o'clock position on the pedicle just superior to the exiting nerve root. on the left at L4-5. Lateral view was utilized to confirm appropriate position of the needle tip within the superior and posterior portion of the respective foramen. In an AP view, 1 mL of Omnipaque 300 contrast medium was injected after negative aspiration for CSF, blood or other bodily fluid, showing appropriate neurogram without evidence of intravascular or intrathecal spread of contrast. Digital subtraction imaging was used with an additional 1ml of the same contrast medium to confirm absence of intravascular contrast spread. A 1mL solution containing 3 mg of betamethasone was injected after negative repeat aspiration. Appropriate spread of the injectate was confirmed with washout of previously injected contrast. No parasthesias were elicited. Needle was removed completely intact without difficulty. The same exact procedure was repeated for all remaining levels on the ipsilateral side, left L5-S1 neuroforamen, modified as necessary to accommodate for the new target location with identical findings and results and no evidence of complication. Images were saved and documented in the patient chart. Patient's skin was cleaned and sterile bandage applied. The patient tolerated the procedure well. The patient was transported to the recovery area in stable condition where they were observed for an appropriate amount of time prior to discharge, without evidence of complication. The patient was instructed to avoid excessive activity for the next 48 hours, including climbing and frequent use of stairs. Showers only for 48 hours. They were instructed not to drive or operate heavy machinery for 24 hours. They are to monitor for severe headaches, fevers, chills, night sweats, erythema/swelling at the site or any other signs of infection, bleeding/bruising, bowel or bladder changes as well as new pain,
== END 2023-05-07 10:33 | disposition home or self-care (01) ==
PROVIDERS: PCP Family Medicine; Visit Provider Anesthesiology Pain Medicine
PROC: (CPT 64483; principal; 2023-05-07 09:30)
DX: M54.17 Radiculopathy, lumbosacral region (principal)
CPT/HCPCS: 64483; 64484; 99199

== ENCOUNTER 2023-06-03 16:34 | Emergency (ER) | payer MEDICARE, MEDICAID, SELFPAY ==
[2023-06-03] VITALS (17 sets, daily range): BP systolic 116–148; BP diastolic 66–87; PULSE 78–88; RESP 12–20; TEMP 36.7; O2SAT 93–98
--- NOTE | ~2023-06-03 | XR_ITS ---
EXAMINATION: XR chest 2V DATE: 06/03/2023 17:47 INDICATION: Chest pain TECHNIQUE: PA and lateral views of the chest are obtained. COMPARISON: 11/29/2022 FINDINGS: The lungs are free of acute opacities. No pleural effusion or pneumothorax. The cardiomedia stinal silhouette is normal. There is moderate thoracic spondylosis. IMPRESSION: 1. No acute cardiopulmonary abnormality. Reviewed, dictated and finalized at location F. ANNEALER
--- NOTE | ~2023-06-03 | US_ITS ---
EXAMINATION: US venous doppler LE RT DATE: 06/03/2023 18:43 INDICATION: Right lower limb pain and swelling TECHNIQUE: Loja scale images without and with compression and Doppler images of the right lower extre mity veins were obtained. COMPARISON: 06/14/2021 FINDINGS: The right common femoral vein, profunda femoral vein, femoral vein, popliteal vein, peronea l trunk, posterior tibial veins, and greater saphenous vein are patent. IMPRESSION: 1. Patent right lower extremity veins. No evidence of deep venous thrombosis. Reviewed, dictated and finalized at location F. [place] BLANCHER
--- NOTE | 2023-06-03 16:35 | ECG_ITS ---
Measurements Intervals [place] Rate: 85 P: 53 WI: 116 QRS: 65 QRSD: 93 T: 64 QT: 307 QTc: 366 Interpretive Statements SINUS RHYTHM WITH SHORT WI INTERVAL NONSPECIFIC ST & T-WAVE ABNORMALITY- DIFFUSE LEADS BASELINE ARTIFACT- V4-V6 BORDERLINE ECG COMPARED TO ECG 02/01/2023 13:31:35 [address]IN[address]M NOW PRESENT ST-T WAVE ABNORMALITY NOW PRESENT Electronically Signed On 06-03-2023 19:31:23 [employer] TE[employer] by Felix Douglass D.O.
--- NOTE | 2023-06-03 16:54 | ED.CHESTPAIN ---
HPI - Chest Pain General Chief Complaint: Chest Pain Stated Complaint: chest pain Time Seen by Provider: 06/03/23 16:54 Source: patient Limitations: no limitations History of Present Illness HPI narrative: This is a 58 year old who presents with chest pain that started 30 minutes prior to arrival. She states she was initially diaphoretic but not now. It was substernal and radiated to epigastrium. She has also been having bilateral lower extremity cramps. No nausea or vomiting. She is concerned about having low potassium. This happened last June and she states she had to be defibrillated versus cardioverted. She is prescribed Lasix taken only PRN for lower extremity edema, not daily. She took a dose last night. She is having pain with breathing but denies niall difficulty breathing. She notices weight fluctuations based on her lower extremity edema. Denies a history of heart failure. No fevers or cough. Related Data Home Medications Medication Instructions Recorded Confirmed clonidine HCl 0.2 mg tablet 0.2 mg PO DAILY 12/06/19 06/04/23 duloxetine 30 mg capsule,delayed 30 mg PO HS 12/06/19 06/04/23 release duloxetine 60 mg capsule,delayed 60 mg PO DAILY 12/06/19 06/04/23 release omeprazole 20 mg capsule,delayed 20 mg PO DAILY 12/06/19 06/04/23 release adalimumab 40 mg/0.4 mL 40 mg subcut [id number] 11/29/22 06/04/23 subcutaneous pen kit (Humira(CF) Pen) atorvastatin 40 mg tablet 40 mg PO QPM 02/28/23 06/04/23 levothyroxine 175 mcg tablet 175 mcg PO DAILY 02/28/23 06/04/23 mirabegron 50 mg tablet,extended 50 mg PO DAILY 02/28/23 06/04/23 release 24 hr (Myrbetriq) potassium chloride 20 mEq 20 meq PO USEASDIRECTD 02/28/23 06/04/23 tablet,extended release(part/cryst) (Klor-Con M) methadone 40 mg soluble tablet 100 mg PO DAILY 03/09/23 06/04/23 clobetasol 0.05 % scalp solution 1 applic topical DAILY 04/30/23 06/04/23 Allergies Allergy/AdvReac Type Severity Reaction Status Date / Time adhesive Allergy Unknown BLISTERS Verified 06/04/23 14:09 methotrexate Allergy Rash Verified 06/04/23 14:09 REPLACED BY [facility] Past Medical History Medical History Allergies Anxiety with depression Asthma Cardiomyopathy Chronic anemia Chronic back pain COPD (chronic obstructive pulmonary disease) GERD (gastroesophageal reflux disease) Heart attack Hepatitis C Hyperlipidemia Hypertension Hypothyroidism Kidney stone Meningitis Overactive bladder Polymorphic ventricular tachycardia Rheumatoid arthritis Seizures Skull fracture Spontaneous dissection of coronary artery Syncope and collapse Thyroid disorder Surgical History Surgical History History of appendectomy History of cardiac catheterization History of tubal ligation (01/2004) History of vein stripping Family History Family History Father Malignant neoplasm of prostate Hypertension Renal disease Heart disease Mother Hypertension Heart disease Thyroid disorder Grandparent Cancer Hypertension Heart disease Cerebrovascular accident Son Asthma Grandparent Cancer Heart problem Social History Social History Social History: Roslyn has gotten her flu, tetanus, and pneumonia vaccine. Has had a colonoscopy. Has had a blood transfusion back in 1968(date unknown). She drinks 6 cups of cola/day. Surrogate medical decision maker: Mindi Ríos, mother. Code status: Full code. Smoking packs per day: 1 Smoking cigarettes per day: 20.0 Years smoked: 35 Smoking pack-years: 35.00 Smoking status: Current every day smoker Tobacco type: e-cigarettes/vaping Second hand tobacco smoke exposure: Yes Additional smoking assessment comments: PT USES E-CIGARETTES NOW, VAPE Alcohol intake: never Substance use: former Substance use typ
[2023-06-03 17:08] LABS: Basophils Percent Auto 0.4 % (0.2-1.2); Eosinophils Absolute Auto 0.2 K/mm3 (0-0.3); Eosinophils Percent Auto 2.9 % (0-4.4); Hematocrit 38.3 % (37.0-47.0); Hemoglobin 12.2 g/dL (12.0-15.0); Immature Granulocyte Absolute 0.03 K/mm3 (0.00-0.031); Immature Granulocyte Percent A 0.4 % (0-0.5); Lymphocytes Absolute Auto 1.88 K/mm3 (0.9-3.2); Lymphocytes Percent Auto 26.1 % (18.3-44.2); Mean Corpuscular HGB Conc 31.9 g/dl (32-36); Mean Corpuscular Hemoglobin 30.8 pg (26-34); Mean Corpuscular Volume 96.7 fl (80-100); Monocytes Absolute Auto 0.6 K/mm3 (0.1-0.6); Monocytes Percent Auto 7.6 % (2.6-8.5); Neutrophils Absolute Auto 4.5 K/mm3 (1.3-6.7); Neutrophils Percent Auto 62.6 % (45.5-73.1); Platelet Count Result 271 k/mm3 (150-375); Red Blood Count 3.96 M/mm3 (4.2-5.4); Red Cell Distribution Width 14.1 % (11.5-14.5); White Blood Count 7.2 K/mm3 (4.5-10.0)
[2023-06-03 17:17] LABS: Prothrombin Time 13.8 Seconds (11.1-14.7)
[2023-06-03 17:23] LABS: Alanine Aminotransferase 15 U/L (6-35); Albumin Level 4.5 g/dL (3.5-5.1); Alkaline Phosphatase 101 U/L (38-126); Anion Gap 14 mmol/L (8-16); Aspartate Amino Transferase 26 U/L (14-36); Bilirubin,Total 0.7 mg/dL (0.2-1.3); Blood Urea Nitrogen 13 mg/dL (7-17); Calcium 9.2 mg/dL (8.4-10.2); Carbon Dioxide 22 mmol/L (22-30); Chloride 102 mmol/L (98-107); Creatine Kinase 77 U/L (30-135); Estimated CRCL calculation 53 ml/min; Estimated Glomerular Filt Rate 46; Glucose 99 mg/dL (65-110); Lipase 67 U/L (23-300); Potassium 3.5 mmol/L (3.4-5.0); Sodium 138 mmol/L (137-145)
[2023-06-03 17:24] LABS: D Dimer 0.39 ug/mL (<0.48)
[2023-06-03 17:30] LABS: NT Pro B Type Natriuretic Pept 130 pg/mL (19.9-100)
[2023-06-03] MEDS: ASPIRIN 81 MG CHEWABLE TABLET 324 MG PO (17:31)
[2023-06-03 17:41] LABS: Troponin I < 0.012 ng/mL (0.000-0.034)
[2023-06-03 18:06] LABS: Influenza A QL RT-PCR Negative (Negative); Influenza B QL RT-PCR Negative (Negative); RSV RNA, RT-PCR Negative (Negative); SARS-CoV-2 RNA PCR Negative (Negative)
[2023-06-03 20:00] LABS: Troponin I < 0.012 ng/mL (0.000-0.034)
== END 2023-06-03 20:37 | disposition home or self-care (01) ==
PROVIDERS: Emergency Medicine; Emergency Provider Student in an Organized Health Care Education/Training Program
DX: L03.115 Cellulitis of right lower limb (principal); R10.13 Epigastric pain; J44.9 Chronic obstructive pulmonary disease, unspecified; I10 Essential (primary) hypertension; I25.2 Old myocardial infarction; E03.9 Hypothyroidism, unspecified; E78.5 Hyperlipidemia, unspecified; N32.81 Overactive bladder; K21.9 Gastro-esophageal reflux disease without esophagitis; M06.9 Rheumatoid arthritis, unspecified; F17.290 Nicotine dependence, other tobacco product, uncomplicated; F41.8 Other specified anxiety disorders; Z87.442 Personal history of urinary calculi; R94.31 Abnormal electrocardiogram [ECG] [EKG]
CPT/HCPCS: 36415; 71046; 80053; 82550; 83690; 83880; 84484; 85025; 85380; 85610; 85730; 87637; 93005; 93971; 99284; A9270

== ENCOUNTER 2023-06-11 08:30 | Day surgery (SDC) | payer MEDICARE, MEDICAID, SELFPAY ==
[2023-06-04 12:10] VITALS: BMI 40.4
--- NOTE | ~2023-06-11 | XR_ITS ---
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 TECHNIQUE: 4 fluoroscopic images of the left SI joint were obtained during left SI joint injection. I was not present during the procedure. Fluoroscopy exposure time was 7.8 seconds. Air Kerma 8.05 mGy. COMPARISON: None FINDINGS: Posterior approach needle, tip projecting over the left SI joint, followed by contrast injection. IMPRESSION: Fluoroscopic documentation of left SI joint injection. Please refer to the operative note for complet e procedural details . Reviewed, dictated and finalized at location K. STOS WORKER HELPER IMPRESSION: Fluoroscopic documentation of left SI joint injection. Please refer to the oper ative note for complete procedural details .
--- NOTE | 2023-06-11 06:43 | WPDHPUPDATE1 ---
History and Physical Update Update Date/Time: 06/11/23 06:43 History and Physical has been reviewed, including an updated exam of the patient. There are NO changes in the patient's condition. Risks, benefits, and alternatives have been discussed and questions answered. Patient agrees to proceed with procedure.
[2023-06-11 09:37] VITALS: BP 134/80; PULSE 73; RESP 18; TEMP 36.4; O2SAT 99
--- NOTE | 2023-06-11 09:54 | W.PM.PROC2 ---
Procedure Note - Detailed Date of Procedure 06/11/23 Pre-op Diagnosis Sacroiliitis, Dorsalgia Post-op Diagnosis Same Procedure Performed Left intra-articular sacroiliac joint steroid injection under fluoroscopic guidance with contrast control. Surgeon Jc Varghese MD Anesthesia Local Description of Procedure INFORMED CONSENT: Risks, benefits and alternatives to the procedure were discussed in detail with the patient who expressed explicit understanding and consent to proceed. Patient was informed verbally and in written form regarding the risks associated with the procedure including the low risk of serious infection, bleeding/bruising, allergic reaction, nerve or organ injury, paralysis, procedural site pain or discomfort, worsening pain and/or mobility, failure to treat and/or disfigurement. The patient expressed explicit understanding and consent to proceed. All materials required for the procedure were available prior to procedure start. Site and side were marked prior to procedure and confirmed in the presence of the patient. PROCEDURE IN DETAIL: The patient was brought to the procedural suite and placed in the prone position. Patient was made comfortable with use of pillows under the head/chest, hips and ankles. Skin overlying the injection site on the affected side(s) was prepared broadly with ChloraPrep applicator and draped in a sterile manner. Aseptic technique was used throughout. The SI joint was identified in the AP view and contralateral oblique angulation with caudal tilt was utilized to optimize visualization of the inferior and medial joint line representing the posterior portion of the joint. Local anesthesia was established by infiltration with approximately 5 mL of 2% lidocaine via a 1-1/2 inch 27-gauge needle. A 22-gauge 3.5 inch Quincke spinal needle was advanced until the needle entered the inferior third of the joint space approximately 1cm cephalad from its most inferior point. In the AP view, 0.5 mL of Omnipaque 300 contrast medium was injected after negative aspiration for CSF, blood or other bodily fluid, showing appropriate intra-articular spread of contrast without evidence of intravascular, perineural or intrathecal placement. A 1.5 mL solution containing 6.0 mg of betamethasone in 2% preservative-free lidocaine was injected after repeat negative aspiration. Appropriate spread of the injectate was confirmed with washout of previous injected contrast. No parasthesias were elicited. Needle was removed completely intact without difficulty. Images were saved and documented in the patient chart. Patient's skin was cleansed and sterile bandage applied. The patient tolerated the procedure well. The patient was transported to the recovery area in stable condition where they were observed for an appropriate amount of time prior to discharge, without evidence of complication. The patient was instructed to avoid excessive activity for the next 48 hours, including climbing and frequent use of stairs. Showers only for 48 hours. They were instructed not to drive or operate heavy machinery for 24 hours. They are to monitor for severe headaches, fevers, chills, night sweats, erythema/swelling at the site or any other signs of infection, bleeding/bruising, bowel or bladder changes as well as new pain, weakness or numbness in the upper or lower extremity. Should they notice these changes, they are instructed to call our office immediately or report directly to the nearest Emergency Department if no answer or if after posted office hours. COMPLICATIONS: None COMMENTS: None CONTRAST WASTED: 29.5mL Omnipaque 300. Complications None Condition Stable Disposition Same day [facility] Billing Surgery - Charge Forward: Surgery Billing
[2023-06-11 10:00] VITALS: BP 180/78; PULSE 66; RESP 12; O2SAT 95
[2023-06-11 10:05] VITALS: BP 163/77; PULSE 63; RESP 12; O2SAT 95
[2023-06-11 10:10] VITALS: BP 128/78; PULSE 74; RESP 13; O2SAT 97
[2023-06-11] MEDS: LIDOCAINE HCL 2% PF INJ 5 ML VIAL 2 ML INFILTRATE (10:10)
[2023-06-11] MEDS: BETAMETHASONE SODIUM PHOSPHATE PF INJ 6 MG/ML VIAL INFILTRATE (10:10)
[2023-06-11] MEDS: LIDOCAINE HCL 1% PF INJ 5 ML VIAL INFILTRATE (10:10)
[2023-06-11 10:15] VITALS: BP 124/64; PULSE 67; RESP 18; O2SAT 100
== END 2023-06-11 10:31 | disposition home or self-care (01) ==
PROVIDERS: Visit Provider Anesthesiology Pain Medicine
PROC: (CPT G0260; principal; 2023-06-11 10:15)
DX: M46.1 Sacroiliitis, not elsewhere classified (principal)
CPT/HCPCS: G0260; 27096; 99199

== ENCOUNTER 2023-08-13 08:14 | Outpatient (CLI) | payer MEDICARE, MEDICAID, SELFPAY ==
[2023-08-13 09:25] LABS: Free T4 Free Thyroxine 0.87 ng/dL (0.76-1.46); Thyroid Stimulating Hormone 5.94 uIU/mL (0.36-3.74)
== END 2023-08-13 08:15 | disposition home or self-care (01) ==
LOC: CHSLAB 08:18
PROVIDERS: Visit Provider Physician Assistant
DX: E03.9 Hypothyroidism, unspecified (principal)
CPT/HCPCS: 36415; 84439; 84443

== ENCOUNTER 2023-09-03 09:16 | Day surgery (SDC) | payer MEDICARE, MEDICAID, SELFPAY ==
--- NOTE | ~2023-09-03 | XR_ITS ---
EXAMINATION: XR fluoroscopy no charge INDICATION: Left sacroiliac joint block TECHNIQUE: 17 intraoperative fluoroscopic images are submitted for review. Total fluoroscopic time wa s 11.8 seconds. COMPARISON: 06/11/2023 FINDINGS: Fluoroscopic images demonstrate injection of the left sacroiliac joint. Please refer to pro cedure note for full details. IMPRESSION: 1. Please refer to procedure note for full details. Reviewed, dictated and finalized at location L. GER OF CASE
--- NOTE | 2023-09-03 06:43 | WPDHPUPDATE1 ---
History and Physical Update Update Date/Time: 09/03/23 06:43 History and Physical has been reviewed, including an updated exam of the patient. There are NO changes in the patient's condition. Risks, benefits, and alternatives have been discussed and questions answered. Patient agrees to proceed with procedure.
--- NOTE | 2023-09-03 06:43 | W.PM.PROC2 ---
Procedure Note - Detailed Date of Procedure 09/03/23 Pre-op Diagnosis sacroiliitis, chronic low back pain Post-op Diagnosis Same Procedure Performed diagnostic/prognostic left intra-articular sacroiliac joint block with local anesthetic under fluoroscopic guidance and contrast control Surgeon Jc Varghese MD Anesthesia Local Description of Procedure INFORMED CONSENT: Risks, benefits and alternatives to the procedure were discussed in detail with the patient who expressed explicit understanding and consent to proceed. Patient was informed verbally and in written form regarding the risks associated with the procedure including the low risk of serious infection, bleeding/bruising, allergic reaction, local anesthetic toxicity, nerve or organ injury, paralysis, procedural site pain or discomfort, worsening pain and/or mobility, failure to treat and/or disfigurement. The patient expressed explicit understanding and consent to proceed. All materials required for the procedure were available prior to procedure start. Site and side were marked prior to procedure and confirmed in the presence of the patient. PROCEDURE IN DETAIL: The patient was brought to the procedural suite and placed in the prone position. Patient was made comfortable with use of pillows under the head/chest, hips and ankles. Skin overlying the injection site on the affected side was prepared broadly with ChloraPrep applicator and draped in a sterile manner. Aseptic technique was used throughout. The SI joint was identified in the AP view and contralateral oblique angulation with caudal tilt was utilized to optimize visualization of the inferior and medial joint line representing the posterior joint space. Local anesthesia was established by infiltration with approximately 5 mL of 2% PF lidocaine via a 1-1/2 inch 27-gauge needle. A 22-gauge 3.5 inch Quincke spinal needle was advanced until the needle entered the inferior third of the posterior joint space approximately 1cm cephalad from its most inferior point. Appropriate final needle position was confirmed in the AP, lateral and oblique views. In the oblique view, 0.5 mL of Omnipaque 300 contrast medium was injected after negative aspiration for CSF, blood or other bodily fluid, showing appropriate intra-articular spread of contrast without evidence of intravascular, perineural or intrathecal placement. 1.5 mL of 0.5% PF bupivacaine was injected after repeat negative aspiration. Appropriate spread of the injectate was confirmed with washout of previous injected contrast. No parasthesias were elicited. Needle was removed completely intact without difficulty. Images were saved and documented in the patient chart. Patient's skin was cleansed and sterile bandage applied. The patient tolerated the procedure well. The patient was transported to the recovery area in stable condition where they were observed for an appropriate amount of time prior to discharge, without evidence of complication. The patient was instructed to avoid excessive activity for the next 48 hours, including climbing and frequent use of stairs. Showers only for 48 hours. They were instructed not to drive or operate heavy machinery for 24 hours. They are to monitor for severe headaches, fevers, chills, night sweats, erythema/swelling at the site or any other signs of infection, bleeding/bruising, bowel or bladder changes as well as new pain, weakness or numbness in the upper or lower extremity. Should they notice these changes, they are instructed to call our office immediately or report directly to the nearest Emergency Department if no answer or if after posted office hours. COMPLICATIONS: None. COMMENTS: None CONTRAST WASTED: 29.5mL Omnipaque 300. Complications No immediate complications Condition Stable Disposition Same day [facility] Billing Surgery - Charge Forward: Surgery Billing
[2023-09-03 10:24] VITALS: BP 172/109; PULSE 76; RESP 20; TEMP 36.1; O2SAT 97
[2023-09-03 11:35] VITALS: BP 197/82; PULSE 62; RESP 16; O2SAT 94
[2023-09-03] MEDS: LIDOCAINE HCL 1% PF INJ 5 ML VIAL 2 ML INFILTRATE (11:36)
[2023-09-03] MEDS: BUPivacaine HCL 0.5% 10 ML AMP 2 ML INFILTRATE (11:38)
[2023-09-03 11:42] VITALS: BP 148/89; PULSE 72; RESP 18; O2SAT 97
== END 2023-09-03 11:56 | disposition home or self-care (01) ==
PROVIDERS: PCP Physician Assistant; Visit Provider Anesthesiology Pain Medicine
PROC: (CPT G0260; principal; 2023-09-03 11:00)
DX: M46.1 Sacroiliitis, not elsewhere classified (principal); M54.59 Other low back pain
CPT/HCPCS: G0260; 27096; 99199

== ENCOUNTER 2023-09-28 14:52 | Outpatient (CLI) | payer MEDICARE, MEDICAID, SELFPAY ==
[2023-09-28 15:56] LABS: Albumin Level 3.6 g/dL (3.4-5.0); Anion Gap 8 mmol/L (8-16); Blood Urea Nitrogen 11 mg/dL (7-18); Calcium 8.7 mg/dL (8.5-10.1); Carbon Dioxide 29 mmol/L (21-32); Chloride 107 mmol/L (98-108); Estimated Glomerular Filt Rate 48; Glucose 78 mg/dL (70-99); Osmolality Calculated 296 mOsm/kg (285-295); Phosphorus 3.9 mg/dL (2.6-4.7); Potassium 3.6 mmol/L (3.5-5.1); Sodium 144 mmol/L (136-145); Ur Ttl Prot Creatinine Ratio 0.25 mg/mg (0-0.20)
[2023-10-01 17:02] LABS: Parathyroid Intact 110 pg/mL (14-64)
[2023-10-04 02:57] LABS: Vitamin D 25 Hydroxy 8 ng/mL (30-100)
== END 2023-09-28 14:53 | disposition home or self-care (01) ==
LOC: CHSLAB 14:54
PROVIDERS: PCP Internal Medicine Nephrology; Visit Provider Internal Medicine Nephrology
DX: E55.9 Vitamin D deficiency, unspecified (principal); I12.9 Hypertensive chronic kidney disease with stage 1 through stage 4 chronic kidney disease, or unspecified chronic kidney disease; N18.32 Chronic kidney disease, stage 3b; N25.81 Secondary hyperparathyroidism of renal origin; R76.9 Abnormal immunological finding in serum, unspecified
CPT/HCPCS: 36415; 80069; 82306; 82570; 83970; 84156; 86334; 86335

== ENCOUNTER 2023-10-14 07:23 | Emergency (ER) | payer MEDICARE, MEDICAID, SELFPAY ==
--- NOTE | ~2023-10-14 | US_ITS ---
EXAMINATION: US venous doppler LE RT DATE: 10/14/2023 09:49 INDICATION: Right lower limb pain. TECHNIQUE: Grayscale ultrasound images without and with compression and Doppler ultrasound images of the right lower extremity veins were obtained. COMPARISON: None. FINDINGS: The visualized portions of right common femoral vein, profunda (deep) femoral vein, femoral vein, pop liteal vein, peroneal veins, posterior tibial veins, and greater saphenous vein outflow are patent. IMPRESSION: 1. No deep venous thrombosis. Reviewed, dictated and finalized at location A.
[2023-10-14 07:24] VITALS: BP 163/86; PULSE 65; RESP 19; TEMP 36.6; O2SAT 98
[2023-10-14 09:04] LABS: Basophils Percent Auto 0.3 % (0.2-1.2); Eosinophils Absolute Auto 0.3 K/mm3 (0-0.3); Eosinophils Percent Auto 5.1 % (0-4.4); Hematocrit 35.6 % (37.0-47.0); Hemoglobin 11.3 g/dL (12.0-15.0); Immature Granulocyte Absolute 0.03 K/mm3 (0.00-0.031); Immature Granulocyte Percent A 0.5 % (0-0.5); Lymphocytes Absolute Auto 1.76 K/mm3 (0.9-3.2); Lymphocytes Percent Auto 26.6 % (18.3-44.2); Mean Corpuscular HGB Conc 31.7 g/dl (32-36); Mean Corpuscular Volume 97.5 fl (80-100); Mean Platelet Volume 9.5 fl (7.4-10.4); Monocytes Absolute Auto 0.5 K/mm3 (0.1-0.6); Monocytes Percent Auto 7.7 % (2.6-8.5); Neutrophils Percent Auto 59.8 % (45.5-73.1); Platelet Count Result 231 k/mm3 (150-375); Red Blood Count 3.65 M/mm3 (4.2-5.4); Red Cell Distribution Width 14.2 % (11.5-14.5); White Blood Count 6.6 K/mm3 (4.5-10.0)
[2023-10-14 09:16] LABS: Lactic Acid Reflex 1.2 mmol/L (0.7-2.0)
[2023-10-14 09:19] VITALS: BP 180/91; PULSE 76; RESP 18; O2SAT 95
[2023-10-14 09:32] LABS: Alanine Aminotransferase 13 U/L (6-35); Albumin Level 3.8 g/dL (3.5-5.1); Alkaline Phosphatase 113 U/L (38-126); Anion Gap 4 mmol/L (4-12); Aspartate Amino Transferase 18 U/L (14-36); Bilirubin,Total 0.4 mg/dL (0.2-1.3); Blood Urea Nitrogen 10 mg/dL (7-17); CRP < 0.5 mg/dL (<1.0); Calcium 8.8 mg/dL (8.4-10.2); Carbon Dioxide 32 mmol/L (22-30); Chloride 104 mmol/L (98-107); Estimated CRCL calculation 57 ml/min; Estimated Glomerular Filt Rate 51; Glucose 125 mg/dL (65-110); Potassium 3.8 mmol/L (3.4-5.0); Sodium 140 mmol/L (137-145)
--- NOTE | 2023-10-14 10:47 | ED.GENADULT ---
HPI - General Adult General Chief complaint: Extremity Injury, Lower Stated complaint: right leg pain/swelling Time Seen by Provider: 10/14/23 08:44 Source: patient Mode of arrival: ambulatory Limitations: no limitations History of Present Illness HPI narrative: 58-year-old with a history of rheumatoid arthritis on Humira, hypertension, hyperlipidemia, cardiomyopathy, has cellulitis of her lower extremity here with the complaints of pain, redness and swelling to her right lower extremity since yesterday. Patient states that it was fiery red yesterday and it is slightly getting better. She denies any fever or chills. No history of trauma. Related Data Home Medications Medication Instructions Recorded Confirmed clonidine HCl 0.2 mg tablet 0.2 mg PO DAILY 12/06/19 10/14/23 duloxetine 30 mg capsule,delayed 30 mg PO HS 12/06/19 10/14/23 release duloxetine 60 mg capsule,delayed 60 mg PO DAILY 12/06/19 10/14/23 release omeprazole 20 mg capsule,delayed 20 mg PO DAILY 12/06/19 10/14/23 release adalimumab 40 mg/0.4 mL 40 mg subcut [id number] 11/29/22 10/14/23 subcutaneous pen kit (Humira(CF) Pen) atorvastatin 40 mg tablet 40 mg PO QPM 02/28/23 10/14/23 mirabegron 50 mg tablet,extended 50 mg PO DAILY 02/28/23 10/14/23 release 24 hr (Myrbetriq) potassium chloride 20 mEq 20 meq PO USEASDIRECTD 02/28/23 10/14/23 tablet,extended release(part/cryst) (Klor-Con M) methadone 40 mg soluble tablet 110 mg PO DAILY 03/09/23 10/14/23 clobetasol 0.05 % scalp solution 1 applic topical DAILY 04/30/23 10/14/23 levothyroxine 200 mcg capsule 200 mcg PO DAILY 08/26/23 10/14/23 Allergies Allergy/AdvReac Type Severity Reaction Status Date / Time adhesive Allergy Unknown BLISTERS Verified 10/14/23 07:24 methotrexate Allergy Rash Verified 10/14/23 07:24 Review of Systems Review of Systems: All systems reviewed & are unremarkable except as noted in HPI and below Constitutional: Constitutional: Reports no additional constitutional complaints Eyes: Eyes: Reports no additional eye complaints ENT: Reports system reviewed and no additional complaints, except as documented Cardiovascular: Cardiovascular: Reports no additional cardiovascular complaints Respiratory: Respiratory: Reports no additional respiratory complaints Gastrointestinal: Gastrointestinal: Reports no additional gastrointestinal complaints Musculoskeletal: Musculoskeletal: Reports as per HPI Integumentary/Breasts: Skin/Breast: Reports as per HPI Neurologic: Reports system reviewed and no additional complaints, except as documented [facility] Past Medical History Medical History Allergies Anxiety with depression Asthma Cardiomyopathy Chronic anemia Chronic back pain COPD (chronic obstructive pulmonary disease) GERD (gastroesophageal reflux disease) Heart attack Hepatitis C Hyperlipidemia Hypertension Hypothyroidism Kidney stone Meningitis Overactive bladder Polymorphic ventricular tachycardia Rheumatoid arthritis Seizures Skull fracture Spontaneous dissection of coronary artery Syncope and collapse Thyroid disorder Surgical History Surgical History History of appendectomy History of cardiac catheterization History of tubal ligation (01/2004) History of vein stripping Family History Family History Father Malignant neoplasm of prostate Hypertension Renal disease Heart disease Mother Hypertension Heart disease Thyroid disorder Grandparent Cancer Hypertension Heart disease Cerebrovascular accident Son Asthma Grandparent Cancer Heart problem Social History Social History (Updated 10/02/23 @ 10:17 by Enedina Cramer MA) Social History: Roslyn has gotten her flu, tetanus, and pneumonia vaccine. Has had a colonoscopy. Has had a blood transfusion back in 1968(date u
[2023-10-14 11:03] VITALS: BP 146/84; PULSE 80; RESP 16; O2SAT 98
== END 2023-10-14 11:04 | disposition home or self-care (01) ==
PROVIDERS: Emergency Provider Family Medicine; PCP Physician Assistant
DX: L03.115 Cellulitis of right lower limb (principal); I10 Essential (primary) hypertension; I42.9 Cardiomyopathy, unspecified; I25.2 Old myocardial infarction; E78.5 Hyperlipidemia, unspecified; J44.9 Chronic obstructive pulmonary disease, unspecified; D64.9 Anemia, unspecified; E03.9 Hypothyroidism, unspecified; N32.81 Overactive bladder; K21.9 Gastro-esophageal reflux disease without esophagitis; M06.9 Rheumatoid arthritis, unspecified; F17.290 Nicotine dependence, other tobacco product, uncomplicated; Z87.442 Personal history of urinary calculi
CPT/HCPCS: 36415; 80053; 83605; 85025; 86140; 93971; 99284

== ENCOUNTER 2024-02-11 11:53 | Outpatient (CLI) | payer MEDICARE, MEDICAID, SELFPAY ==
--- NOTE | ~2024-02-11 | XR_ITS ---
XR foot RT min 3V Ordering provider: Janet You, ZURI History: . Right foot pain [id number] . Comparison: None. FINDINGS: BONES: No acute fracture or dislocation. Small bone fragment seen near to the fibula. Cyst unchanged since 2014 JOINT SPACES: Normal. No tarsal coalition. SOFT TISSUES: Normal. IMPRESSION: No acute osseous abnormality of the right foot. Reviewed, dictated and finalized at location A.
[2024-02-11 12:20] LABS: Creatinine Urine 143.03 mg/dL (40-278); Total Protein Urine Random 50.4 mg/dL (0.0-11.9); Ur Ttl Prot Creatinine Ratio 0.35 mg/mg (0-0.20)
[2024-02-11 13:09] LABS: Albumin Level 3.6 g/dL (3.4-5.0); Anion Gap 8 mmol/L (4-12); Blood Urea Nitrogen 10 mg/dL (7-18); Calcium 8.9 mg/dL (8.5-10.1); Carbon Dioxide 28 mmol/L (21-32); Chloride 103 mmol/L (98-108); Estimated Glomerular Filt Rate 40; Glucose 118 mg/dL (70-99); Osmolality Calculated 288 mOsm/kg (285-295); Phosphorus 4.4 mg/dL (2.6-4.7); Potassium 3.9 mmol/L (3.5-5.1); Sodium 139 mmol/L (136-145)
== END 2024-02-11 11:54 | disposition home or self-care (01) ==
LOC: CHSLAB 11:55
PROVIDERS: PCP Physician Assistant; Visit Provider Internal Medicine Nephrology
DX: I12.9 Hypertensive chronic kidney disease with stage 1 through stage 4 chronic kidney disease, or unspecified chronic kidney disease (principal); N18.31 Chronic kidney disease, stage 3a; M79.671 Pain in right foot
CPT/HCPCS: 36415; 73630; 80069; 82570; 84156

== ENCOUNTER 2024-02-29 10:57 | Outpatient (CLI) | payer MEDICARE, MEDICAID, SELFPAY ==
[2024-02-29 14:13] LABS: Hematocrit 36.5 % (35.0-49.0); Hemoglobin 11.6 g/dL (12.0-15.0); Mean Corpuscular HGB Conc 31.8 g/dL (32-36); Mean Corpuscular Hemoglobin 28.9 pg (27.0-31.0); Mean Corpuscular Volume 90.8 fL (78.0-102.0); Mean Platelet Volume 10.3 fl (9.2-11.8); Platelet Count Result 225 K/mm3 (150-420); Red Blood Count 4.02 M/mm3 (4.20-5.40); Red Cell Distribution Width 14.1 % (11.6-14.4)
[2024-02-29 14:41] LABS: Alanine Aminotransferase 14 U/L (14-59); Albumin Level 3.6 g/dL (3.4-5.0); Alkaline Phosphatase 122 U/L (46-116); Anion Gap 8 mmol/L (4-12); Aspartate Amino Transferase 17 U/L (15-37); Bilirubin,Total 0.4 mg/dL (0.00-1.00); Blood Urea Nitrogen 14 mg/dL (7-18); Calcium 8.8 mg/dL (8.5-10.1); Carbon Dioxide 30 mmol/L (21-32); Chloride 101 mmol/L (98-108); Estimated Glomerular Filt Rate 40; Free T4 Free Thyroxine 0.75 ng/dL (0.76-1.46); Glucose 82 mg/dL (70-99); Osmolality Calculated 287 mOsm/kg (285-295); Potassium 3.6 mmol/L (3.5-5.1); Sodium 139 mmol/L (136-145); Thyroid Stimulating Hormone 5.83 uIU/mL (0.36-3.74); Total Protein 7.2 g/dL (6.4-8.2)
[2024-03-05 11:19] LABS: NIL 0.08 IU/mL; Quantiferon TB Plus, 1T NEGATIVE (NEGATIVE); TB1-NIL 0.02 IU/mL; TB2-NIL 0.03 IU/mL
== END 2024-02-29 10:58 | disposition home or self-care (01) ==
PROVIDERS: PCP Physician Assistant
DX: L40.9 Psoriasis, unspecified (principal); E78.5 Hyperlipidemia, unspecified; E03.9 Hypothyroidism, unspecified; F41.9 Anxiety disorder, unspecified
CPT/HCPCS: 36415; 80053; 84439; 84443; 85027; 86480

== ENCOUNTER 2024-05-12 13:18 | Outpatient (CLI) | payer MEDICARE, MEDICAID, SELFPAY ==
--- NOTE | ~2024-05-12 | CT_ITS ---
CT Scan of the Chest without Contrast: Clinical Indication: Lung cancer screening, nicotine dependence Technique: Contiguous sections were acquired throughout the chest without intravenous contrast. Dose reduction technique was used on this scan by utilizing automated exposure control and iterative recon struction technique. The dose-length product (DLP) was 287.40 mGy-cm. COMPARISON: 05/03/2023 Findings: There is no evidence of any significant mediastinal, hilar or axillary lymphadenopathy. The mediastin al soft tissues appear normal. There is no evidence of pleural or pericardial effusion. The lungs are clear. No pulmonary nodules or infiltrates are noted. Images through the upper abdomen reveal no abnormalities. Impression: Lung RADS 1: Negative. 12 month follow-up screening CT advised. Reviewed, dictated and finalized at location . Impression: Lung RADS 1: Negative. 12 month follow-up screening CT advised.
== END 2024-05-12 13:19 | disposition home or self-care (01) ==
PROVIDERS: PCP Physician Assistant; Visit Provider Nurse Practitioner Family
DX: Z12.2 Encounter for screening for malignant neoplasm of respiratory organs (principal); Z87.891 Personal history of nicotine dependence
CPT/HCPCS: 71271

== ENCOUNTER 2024-05-15 11:58 | Outpatient (CLI) | payer MEDICARE, MEDICAID, SELFPAY ==
[2024-05-15 12:27] LABS: Creatinine Urine 105.82 mg/dL (40-278); Total Protein Urine Random 49.6 mg/dL (0.0-11.9); Ur Ttl Prot Creatinine Ratio 0.47 mg/mg (0-0.20)
[2024-05-15 13:04] LABS: Albumin Level 3.9 g/dL (3.4-5.0); Anion Gap 13 mmol/L (4-12); Blood Urea Nitrogen 12 mg/dL (7-18); Calcium 9.4 mg/dL (8.5-10.1); Carbon Dioxide 29 mmol/L (21-32); Chloride 99 mmol/L (98-108); Estimated Glomerular Filt Rate 34; Glucose 125 mg/dL (70-99); Osmolality Calculated 292 mOsm/kg (285-295); Phosphorus 3.9 mg/dL (2.6-4.7); Potassium 3.1 mmol/L (3.5-5.1); Sodium 141 mmol/L (136-145)
[2024-05-16 10:08] LABS: Vitamin D 25 Hydroxy 12 ng/mL (30-100)
[2024-05-16 14:22] LABS: Parathyroid Intact 215 pg/mL (16-77)
== END 2024-05-15 11:59 | disposition home or self-care (01) ==
LOC: CHSLAB 12:00
PROVIDERS: PCP Physician Assistant; Visit Provider Internal Medicine Nephrology
DX: I12.9 Hypertensive chronic kidney disease with stage 1 through stage 4 chronic kidney disease, or unspecified chronic kidney disease (principal); E55.9 Vitamin D deficiency, unspecified; N18.32 Chronic kidney disease, stage 3b; N25.81 Secondary hyperparathyroidism of renal origin
CPT/HCPCS: 36415; 80069; 82306; 82570; 83970; 84156

== ENCOUNTER 2024-07-09 11:29 | Outpatient (CLI) | payer MEDICARE, MEDICAID, SELFPAY ==
[2024-07-09 13:06] LABS: Free T4 Free Thyroxine 1.07 ng/dL (0.76-1.46); Thyroid Stimulating Hormone 3.72 uIU/mL (0.36-3.74)
== END 2024-07-09 11:30 | disposition home or self-care (01) ==
LOC: CHSLAB 11:34
PROVIDERS: PCP Family Medicine; Visit Provider Physician Assistant
DX: E03.9 Hypothyroidism, unspecified (principal)
CPT/HCPCS: 36415; 84439; 84443

== ENCOUNTER 2024-07-28 07:27 | Outpatient (CLI) | payer MEDICARE, MEDICAID, SELFPAY ==
--- NOTE | ~2024-07-28 | MM_ITS ---
EXAMINATION: MM screening jane BI w javier HISTORY: Screening mammogram TECHNIQUE: Craniocaudal and mediolateral oblique 3-D tomosynthesis images were obtained and synthetic 2-D images were generated. CAD analysis was submitted and interpreted. COMPARISON: 06/14/2017 BREAST PARENCHYMAL COMPOSITION:Not Dense. The breasts are almost entirely fatty FINDINGS: No suspicious mass, calcification, or architectural distortion are identified in either rabia ast to suggest malignancy. There has been no suspicious interval change. IMPRESSION: No mammographic evidence of malignancy. Recommend routine screening mammography in one year. BI-RADS Category 1: Negative Reviewed, dictated and finalized at location . 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
== END 2024-07-28 07:28 | disposition home or self-care (01) ==
LOC: CHSIMG 07:31
PROVIDERS: PCP Family Medicine; Visit Provider Family Medicine
DX: Z12.31 Encounter for screening mammogram for malignant neoplasm of breast (principal)
CPT/HCPCS: 77063; 77067

== ENCOUNTER 2024-08-17 19:22 | Emergency (ER) | payer MEDICARE, MEDICAID, SELFPAY ==
[2024-08-17] VITALS (22 sets, daily range): BP systolic 126–196; BP diastolic 58–98; PULSE 52–101; RESP 12–22; TEMP 36–36.5; O2SAT 93–98
--- NOTE | ~2024-08-17 | XR_ITS ---
EXAMINATION: XR chest 1V portable Exam Date/Time: 08/17/2024 20:02 LUG BREAKER AND WIRE PULLER HISTORY: sob Comparison: None. RESULT: Lines, tubes, and devices: None. Lungs and pleura: Clear. Cardiomediastinal silhouette: Stable. Other: No acute osseous or upper abdominal finding. IMPRESSION: No acute cardiopulmonary process. Reviewed, dictated and finalized at location K. BREAKER AND WIRE PULLER
--- NOTE | 2024-08-17 19:23 | ED_ITS ---
HPI - General Adult General Chief complaint: Unspecified Stated complaint: high bp Time Seen by Provider: 08/17/24 19:22 Source: patient Mode of arrival: ambulatory Limitations: no limitations History of Present Illness HPI narrative: Patient is a 59-year-old female with some sweating/ diaphoresis this evening and elevated blood pressures at home. She did not take her home medication for blood pressure this evening. She had a little bit of chest pressure mid to the left side and a little bit of hand tingling. The chest pressure and hand tingling has resolved at this time. No shortness of breath. She did get short of breath however during the day today for short period. prior CAD /mi 2021 with catheterization and no intervention. She had paroxysmal AFib that has resolved. Onset (ago): day(s) (1) Location: chest ( resolved at this time; pressure-like change) Radiation: extremity ( left hand tingling) Severity: mild Severity scale (1-10): 1 Quality: other ( pressure-like) Pain Consistency: intermittent and now resolved Relieving factors: none Exacerbating factors: none Associated symptoms: chest pain and other ( diaphoresis) Treatments prior to arrival: none ( patient did not take her evening medication) Related Data Home Medications ?Medication ?Instructions ?Recorded ?Confirmed ?Last Taken ?Type clonidine HCl 0.2 mg tablet 0.2 mg PO DAILY 12/06/19 02/12/24 08/26/23 History duloxetine 30 mg capsule,delayed 30 mg PO HS 12/06/19 02/12/24 08/25/23 History release duloxetine 60 mg capsule,delayed 60 mg PO DAILY 12/06/19 02/12/24 08/26/23 History release omeprazole 20 mg capsule,delayed 20 mg PO DAILY 12/06/19 02/12/24 08/26/23 History release adalimumab 40 mg/0.4 mL 40 mg subcut [id number] 11/29/22 02/12/24 05/26/23 History subcutaneous pen kit (Humira(CF) Pen) atorvastatin 40 mg tablet 40 mg PO QPM 02/28/23 02/12/24 08/25/23 History potassium chloride 20 mEq 20 meq PO USEASDIRECTD 02/28/23 02/12/24 06/11/23 History tablet,extended release(part/cryst) (Klor-Con M) methadone 40 mg soluble tablet 110 mg PO DAILY 03/09/23 02/12/24 09/03/23 History clobetasol 0.05 % scalp solution 1 applic topical DAILY 04/30/23 02/12/24 08/26/23 History levothyroxine 200 mcg capsule 200 mcg PO DAILY 08/26/23 02/12/24 08/26/23 History Allergies Allergy/AdvReac Type Severity Reaction Status Date / Time adhesive Allergy Unknown BLISTERS Verified 08/17/24 20:54 methotrexate Allergy Rash Verified 08/17/24 20:54 Review of Systems 2 Review of Systems: All systems reviewed & are unremarkable except as noted in HPI and below Constitutional: Constitutional: Reports no additional constitutional complaints Eyes: Eyes: Reports no additional eye complaints ENT: Reports system reviewed and no additional complaints, except as documented Cardiovascular: Cardiovascular: Reports no additional cardiovascular complaints Respiratory: Respiratory: Reports no additional respiratory complaints Gastrointestinal: Gastrointestinal: Reports no additional gastrointestinal complaints Genitourinary: Genitourinary: Reports no additional female genitourinary complaints Musculoskeletal: Musculoskeletal: Reports no additional musculoskeletal complaints Integumentary/Breasts: Skin/Breast: Reports system reviewed and no additional complaints, except as docu Neurologic: Reports system reviewed and no additional complaints, except as documented Psychiatric: Psychiatric: Reports no additional psychiatric complaints Endocrine: Endocrine: Reports no additional endocrine complaints Hematologic/Lymphatic: Hematologic/Lymphatic: Reports no additional hematologic/lymphatic complaints Allergic/Immunologic: Allergic/Immunologic: Reports no additional allergic/immunologic complaints PMFSH Past Medical History Medical History Thyroid disorder Heart attack GERD (gastroesophageal reflux disease) COPD (chronic obstructive pulmonary disease) Allergies Hypothyroidism Chronic anemia Cardiomyopathy 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 Asthma Rheumatoid arthritis Chronic back pain Anxiety with depression Hepatitis C Meningitis Kidney stone Skull fracture Overactive bladder Syncope and collapse Seizures Hyperlipidemia Hypertension Surgical History Surgical History History of vein stripping History of cardiac catheterization History of tubal ligation (01/2004) History of appendectomy Family History Family History Father Malignant neoplasm of prostate Hypertension Renal disease Heart disease Mother Hypertension Heart disease Thyroid disorder Grandparent Cancer Hypertension Heart disease Cerebrovascular accident Son Asthma Grandparent Cancer Heart problem Social History Social History Social History: Roslyn has gotten her flu, tetanus, and pneumonia vaccine. Has had a colonoscopy. Has had a blood transfusion back in 1968(date unknown). She drinks 6 cups of cola/day. Surrogate medical decision maker: Mindi Ríos, mother. Code status: Full code. Smoking packs per day: 1 Smoking cigarettes per day: 20.0 Years smoked: 35 Smoking pack-years: 35.00 Smoking status: Current every day smoker Tobacco type: e-cigarettes/vaping Second hand tobacco smoke exposure: Yes Additional smoking assessment comments: PT USES E-CIGARETTES NOW, VAPE Alcohol intake: never Substance use: former Substance use type: heroin Other substance usage details: METHADONE DAILY Last use: 2020 Do You Feel Safe in your Home?: Yes Lack of Transportation: YES Lack of Food: Sometimes True Current Housing: I Have Housing Concerned About Future Housing: No Difficulty Paying Gas/Electric Bills: No Difficulty Paying for Meds: No Currently Unemployed: No Education: High School Diploma/GED Difficulty w/ Childcare or Family Care: No Living arrangements: with family Additional living arrangements comments: . Lives in [place] with son and daughter. Occupation/Education: other Additional occupation/education comments: Disabled. Gender identity (if verbalized by the patient): Female Sexual Orientation (if Verbalized by the Patient): Straight or Heterosexual Spiritual care concerns: No Agree to blood products: Yes Exam 2 Const: General: healthy appearing Nutritional Appearance: well nourished Orientation/consciousness: patient oriented x3 HENMT: Head: normal to inspection Ears: external ears normal F roxana/Nose/Sinus: Normal external nose present Eyes: Conjunctivae: conjunctivae normal Pupils: Equal, round and reactive pupils present EOM: EOMs intact bilaterally Neck: Neck: normal visual inspection Chest: Chest palpation & inspection: normal inspection of the chest Resp: Effort & Inspection: normal respiratory effort and not labored A uscultation: clear to auscultation bilaterally and no crackles Cardio: Rate: regular rate Rhythm: regular rhythm Heart sounds: no murmurs Other: PVCs noted on EKG and on monitor have resolved at this time GI: Inspection: non-distended GI Palp: Yes Soft to palpation and No Tenderness to palpation present (GI) Auscultation: normal bowel sounds : General: Yes bladder normal to palpation Back/Spine/Pelvis: Back: no CVA tenderness Skin: General skin exam: normal color Rashes: no rashes Wounds: no wounds Neuro: General: patient oriented x3 Cranial nerves: Yes Nystagmus not present Speech: normal speech Gait exam (Neuro): Normal gait present Extrem: General: normal to inspection Psych: Mental Status: mental status grossly normal Affect: normal affect Attitude: cooperative Course Vital Signs Vital signs: Vital Signs Temperature 36.0 C L 08/17/24 19:27 Pulse Rate 52 L 08/17/24 19:27 Respiratory Rate 12 08/17/24 19:27 Blood Pressure 183/58 H 08/17/24 19:27 Pulse Oximetry 98 08/17/24 19:27 Oxygen Delivery Room Air 08/17/24 19:27 Temperature 36.0 C L 08/17/24 19:27 Pulse Rate 74 08/17/24 22:15 Respiratory Rate 22 H 08/17/24 20:16 Blood Pressure 126/75 08/17/24 21:01 Pulse Oximetry 94 08/17/24 21:01 Oxygen Delivery Room Air 08/17/24 20:31 Medical Decision Making MDM Narrative Medical decision making narrative: patient is a 59-year-old female with some resolved chest pain at this time and some diaphoresis and elevated blood pressure this evening. We will do a cardiac workup at this time and treat the blood pressure. Chest pain resolved. Vital Signs Vital Signs: Vital Signs Temperature 36.0 C L 08/17/24 19:27 Pulse Rate 52 L 08/17/24 19:27 Respiratory Rate 12 08/17/24 19:27 Blood Pressure 183/58 H 08/17/24 19:27 Pulse Oximetry 98 08/17/24 19:27 Oxygen Delivery Room Air 08/17/24 19:27 Temperature 36.0 C L 08/17/24 19:27 Pulse Rate 74 08/17/24 22:15 Respiratory Rate 22 H 08/17/24 20:16 Blood Pressure 126/75 08/17/24 21:01 Pulse Oximetry 94 08/17/24 21:01 Oxygen Delivery Room Air 08/17/24 20:31 Lab Data Lab results reviewed: Yes I reviewed the patient's lab results. 08/17/24 20:05 08/17/24 20:05 Labs: Lab Results 08/17/24 Range/Units 20:05 WBC 6.7 (4.8-10.8) K/mm3 RBC 4.36 (4.20-5.40) M/mm3 Hgb 12.6 (12.0-15.0) g/dL Hct 39.1 (35.0-49.0) % MCV 89.7 (78.0-102.0) fL MCH 28.9 (27.0-31.0) pg MCHC 32.2 (32-36) g/dL RDW 14.0 (11.6-14.4) % Plt Count 258 (150-420) K/mm3 MPV 9.9 (9.2-11.8) fl Immature Gran % (Auto) 0.3 H (0.0-0.0) % Neut % (Auto) 67.1 (50.0-70.0) % Lymph % (Auto) 24.1 (18.0-42.0) % Mcleod % (Auto) 4.9 (2.0-11.0) % Eos % (Auto) 3.3 (1.0-6.0) % Baso % (Auto) 0.3 (0.0-1.0) % Lymph # (Auto) 1.61 (1.10-4.50) K/mm3 Mcleod # (Auto) 0.33 (0.10-0.90) K/mm3 Eos # (Auto) 0.22 (0.02-0.50) K/mm3 Baso # (Auto) 0.02 (0.00-0.10) K/mm3 Abs Immat Gran (auto) 0.02 H (0.00-0.00) K/mm3 Absolute Neuts (auto) 4.47 (1.70-7.20) K/mm3 Absolute Nucleated RBC 0.00 (0.00-0.00) K/mm3 Nucleated RBC % 0.0 (0-0.0) % Sodium 141 (136-145) mmol/L Potassium 3.6 (3.5-5.1) mmol/L Chloride 105 (98-108) mmol/L Carbon Dioxide 26 (21-32) mmol/L Anion Gap 10 (4-12) mmol/L BUN 13 (7-18) mg/dL Creatinine 1.73 H (0.55-1.02) mg/dL Estim Creat Clear Calc 36 ml/min Estimated GFR 30 L (59 - ) Glucose 76 (70-99) mg/dL Calculated Osmolality 291 (285-295) mOsm/kg Calcium 9.4 (8.5-10.1) mg/dL Magnesium 1.7 L (1.8-2.4) mg/dL Total Bilirubin 0.3 (0.00-1.00) mg/dL AST 17 (15-37) U/L ALT 23 (14-59) U/L Alkaline Phosphatase 136 H (46-116) U/L Troponin I 8.6 (0.00-60.4) ng/L NT-Pro-B Natriuret Pep 233 H (0-125) pg/mL Total Protein 8.0 (6.4-8.2) g/dL Albumin 4.0 (3.4-5.0) g/dL Urine Color Light yellow (Yellow) Urine Appearance Clear (Clear) Urine pH 6.0 (5.0-8.0) Ur Specific [place] <= 1.005 L (1.010-1.020) Urine Protein Negative (Negative) Urine Glucose (UA) Negative (Negative) Urine Ketones Negative (Negative) Ur Blood (Man) 1+ H (Negative) Urine Nitrate Negative (Negative) Urine Bilirubin Negative (Negative) Urine Urobilinogen 0.2 (0.2-1.0) mg/dL Leukocyte Esterase Rfl 3+ H (Negative) JUAN/UL Urine RBC 3-5 H (0-2) /hpf Urine WBC 31-50 H (0-3) /hpf Ur Squamous Epith Cells None seen (Few) /hpf Urine Bacteria Trace (None) /hpf Imaging Data Attestation: I personally reviewed and interpreted this imaging study as follows: Radiologist's impression: Chest x-ray is negative for acute process ECG Data EKG #1: Attestation: I personally reviewed and interpreted this ECG as follows: ECG completion date: 08/17/24 ECG completion time: 20:25 EKG Interpretation: normal rate, sinus rhythm, PVCs, no ST changes, normal QRS, normal QT and NL axis Discharge Plan Discharge Clinical Impression: Hypomagnesemia UTI (urinary tract infection) Qualifiers: Urinary tract infection type: acute cystitis Hematuria presence: with hematuria Qualified Code(s): N30.01 - Acute cystitis with hematuria Hypertension Qualifiers: Hypertension type: primary hypertension Qualified Code(s): I10 - Essential (primary) hypertension CKD (chronic kidney disease) Qualifiers: Chronic kidney disease stage: unspecified stage Qualified Code(s): N18.9 - Chronic kidney disease, unspecified Patient Disposition: Home, Self-Care Condition: Stable Instructions: Urinary Tract Infection in Women (DC), Hypertension (ED) Additional Instructions: Please follow-up with the primary doctor in the next week. Make sure to take all your medications as prescribed. Please review your kidney function with her primary doctor. Patient Language: Zambian Prescriptions: New cephalexin 500 mg capsule 500 mg PO BID 7 Days Qty: 14 0RF No Action clonidine HCl 0.2 mg tablet 0.2 mg PO DAILY omeprazole 20 mg capsule,delayed release(DR/EC) 20 mg PO DAILY duloxetine 30 mg capsule,delayed release(DR/EC) 30 mg PO HS duloxetine 60 mg capsule,delayed release(DR/EC) 60 mg PO DAILY methadone 40 mg Tablet,Soluble 110 mg PO DAILY ergocalciferol (vitamin D2) 1,250 mcg (50,000 unit) capsule 1,250 mcg PO WEEKLY Qty: 16 3RF atorvastatin 40 mg tablet 40 mg PO QPM potassium chloride [Klor-Con M20] 20 mEq tablet,ER particles/crystals 20 meq PO USEASDIRECTD Humira(CF) Pen 40 mg/0.4 mL pen injector kit 40 mg SUBCUT [id number] carvedilol [Coreg] 6.25 mg Tablet 6.25 mg PO Q12HR Qty: 60 0RF furosemide 20 mg tablet 20 mg PO DAILY PRN (Reason: Edema and weight gain ) Qty: 30 0RF Rx Instructions: Take if you gain 3lbs in one day or 5lbs in 5 days, or notice increased swelling of the bilateral lower extremities clobetasol 0.05 % solution 1 applic TOPICAL DAILY levothyroxine 200 mcg Capsule 200 mcg PO DAILY Follow-up/Referrals: Anupama Cuba MD [Primary Care Provider] - Time of Disposition: 23:02
--- OUTSIDE RECORDS SUMMARY | 2024-08-17 19:24 | XMS_ITS | Encounter Summary ---
Author Organization [facility] Address [address] [place] [address]. [place] [address] [place] [address] Care Team Providers Care Mixing Machine Tender Cork Gasket Name Role Phone Anupama Cuba MD Primary Care Provider [phone] Nemesio Antony MD Unavailable Nemesio Antony MD Unavailable Encounter Details Date Type Department Care Team (Late st Contact Info) Description 09/26/2020 Abstract [facility] [address] [place] [id number] Nemesio Antony MD [address] 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
--- OUTSIDE RECORDS SUMMARY | 2024-08-17 19:25 | XMS_ITS | Data Portability ---
Author Organization [facility], [address] [facility] ([place]) Address [address] [place] [address] Care Team Providers Care Ad Operations Specialist Name Role Phone ANUPAMA CUBA Primary Care Provider Assessment No assessment recorded. Plan of Treatment Reminders Order Date Submit Date Provider Last Modified By Organization Details Last Modified Time Details Appointments Establish ed Patient 10.EST 2024 11:30A M Dr. Yandy Garcia Not available Not available Not available Lab None recorded. Referral None recorded. Procedures None recorded. Surgeries None recorded. Imaging None recorded. Medication Orders clobetaso l 0.05 % scalp solution 2023 024 [id number] [id number], [address] [place], [address], 01/28/2024 12:09:45 calcipotr iene 0.005 % topical ointment 2023 024 [id number], [address] [place], [address], 01/28/2024 12:09:45 Patient TargetsNo targets recorded. Patient InstructionsNo instructions recorded. Reason for Referral None Reported. Results Created Date Observation Date Name Description Value Unit Range Abnormal Flag Note LastModifiedBy Organization Detail LastModifiedTime Result Notes None recorded. Problems Name Problem SNOMED Code Status Onset Date Resolution Date Notes Provider Name and Address Organization Details Recorded Time Psoriasis 5813230 [facility] 11:29:49 Problem Notes None recorded. Medical Equipment None Reported. Allergies Allergen ID Allergen Name Allergen Category Reaction Reaction Severity Criticality Documentation Date Start Date Code Code System Note Provider Name and Address Organization Details Recorded Time 1455673 fluocinon estevan medicatio n rash Not available Not available 08/14/20232021 4462 RxNorm React ion: Blist ers; Not Available Not Available Not Available 1176299 methotrex ate medicatio n Not available Not available Not available 08/14/20232021 6851 RxNorm React ion: Blist ers; Nause a; Myalg ia; Not Available Not Available Not Available 826319 Product containin g penicilli n and antibioti c (product) medicatio n Not available Not available Not available 08/12/20232005 45505 05 SNOMED Not Available Not Available Not Available Medications Name Sig Start Date Stop Date Status Note LastModified by Organization Details LastModified Time cyclobenzapr ine 10 mg tablet TAKE 1 TABLET BY MOUTH EVERY DAY NEEDED active Not Available Not Available No t Available dicloxacilli n 500 mg capsule 1 (ONE) CAPSULE BY MOUTH EVERY SIX HOURS active Not Available Not Available No t Available atorvastatin 40 mg tablet TAKE 1 TABLET BY MOUTH EVERYDAY AT BEDTIME active Not Available Not Available No t Available levothyroxin e 175 mcg tablet active Not Available Not Available Not Available pilocarpine 5 mg tablet 1 (ONE) TABLET THREE TIMES DAILY NEEDED active Not Available Not Available No t Available nystatin 100,000 unit/mL oral suspension SWISH AND SWALLOW 5 MILLILITER BY MOUTH FOUR TIMES DAILY active Not Available Not Available No t Available carvedilol 6.25 mg tablet active Not Available Not Available Not Available doxycycline hyclate 100 mg capsule TAKE 1 CAPSULE BY MOUTH TWICE A DAY active Not Available Not Available No t Available carvedilol 12.5 mg tablet TAKE 1 TABLET BY MOUTH TWICE A DAY active Not Available Not Available No t Available fluconazole 150 mg tablet 150 MG ORALLY ONCE NEEDED FOR YEAST INFECTION FOR 1 DAY A SINGLE DOSE active Not Available Not Available No t Available levetiraceta m 500 mg tablet active Not Available Not Available Not Available lisinopril 20 mg tablet active Not Available Not Available Not Available clonidine HCl 0.2 mg tablet TAKE 1 TABLET BY MOUTH EVERYDAY AT BEDTIME active Not Available Not Available No t Available lorazepam 2 mg tablet TAKE ONE TABLET ONE HOUR BEFORE MRI. active Not Available Not Available No t Available cephalexin 500 mg capsule TAKE 1 CAPSULE BY MOUTH EVERY 8 HOURS FOR 5 DAYS active Not Available Not Available No t Available cevimeline 30 mg capsule active Not Available Not Available Not Available lisinopril 10 mg tablet TAKE 1 TABLET BY MOUTH EVERY DAY active Not Available Not Available No t Available omeprazole 20 mg capsule,annita yed release active Not Available Not Available Not Available levothyroxin e 200 mcg tablet TAKE 1 TABLET BY MOUTH EVERY DAY IN THE MORNING active Not Available Not Available No t Available furosemide 20 mg tablet TAKE 2 TABLETS IN THE MORNING active Not Available Not Available Not Available ergocalcifer ol (vitamin D2) 1,250 mcg (50,000 unit) capsule TAKE 1 CAPSULE BY MOUTH WEEKLY active Not Available Not Available No t Available albuterol sulfate HFA 90 mcg/actuatio n aerosol inhaler INHALE 2 PUFFS EVERY 4 HOURS NEEDED active Not Available Not Available No t Available clobetasol 0.05 % scalp solution PLEASE SEE ATTACHED FOR DETAILED DIRECTIONS active Not Available Not Available N ot Available calcipotrien e 0.005 % topical ointment APPLY A THIN LAYER TO THE AFFECTED AREA(S) BY TOPICAL ROUTE ONCE DAILY NEEDED FOR FLARES active Not Available Not Available No t Available duloxetine 30 mg capsule,annita yed release 1 CAPSULE WITH 60MG FOR TOTAL OF 90MG DAILY active Not Available Not Available No t Available duloxetine 60 mg capsule,annita yed release 1 CAPSULE WITH 30MG FOR TOTAL OF 90MG DAILY active Not Available Not Available No t Available Myrbetriq 50 mg tablet,exten ded release active Not Available Not Available Not Available naloxone 4 mg/actuation nasal spray PLEASE SEE ATTACHED FOR DETAILED DIRECTIONS active Not Available Not Available N ot Available Humira(CF) Pen 40 mg/0.4 mL subcutaneous kit INJECT 1 PEN UNDER THE SKIN EVERY 14 DAYS 2023 active Not Available Not Available Not Avai lable Lagevrio 200 mg capsule (EUA) TAKE 4 CAPSULES BY MOUTH EVERY 12 HOURS FOR 5 DAYS active Not Available Not Available N ot Available Vitals None Recorded Social History None recorded. Functional Status None recorded. Mental Status None recorded. Family History Nothing Reported. Medical History No medical history recorded. Gynecological HistoryNo gynecological history recorded. Obstetrics History GPAL:G 0 P 0 0 0 0 Past Encounters Encounter ID Performer Location Encounter Start Date Encounter Closed Date Diagnosis/Indication Diagnosis SNOMED-CT Code Diagnosis ICD10 Code Diagnosis Note [id number] YANDY GARCIA MD [facility] ([place]) [address] [place] [address] 01/28/2024 11:20:03 01/28/2024 11:44:29 Psoriasis 6701481 L40.9 Chronic plaque psoriasis, controlled with humira The patient was counseled that psoriasis is a chronic, relapsing and remitting condition, and that although a cure is not available, there are multiple treatment options. We discussed that psoriasis has an associatio n with several other systemic conditions , including hypertensi on, dyslipidem ia, obesity, cardiovasc ular disease, and psoriatic arthritis. We encouraged regular follow up with a primary care physician for routine monitoring for these. Plan:- PCP is Dr. Anupama Cuba; ZURI You- pt will sign informatio n release form today to get annual CBC, CMP, and TB results- will refill clobetasol 0.05% cream and calcipotri burak 0.05% cream The patient is currently {{well controlled * poorly controlled }} on Humira therapy. The dose will {{remain unchanged* be increased to [ ] be decreased to [ ]}}. I encouraged {{him her* }} to hold injections if {{he she*} } has any signs or symptoms of an infection. We discussed the fact that these may include fever, chills, cough, skin redness and tenderness , and general malaise. We discussed the fact that Humira suppresses the immune system and increases susceptibi lity to infection. The patient was encouraged to use topical therapy as needed in addition to the Humira. Education provided:P ossible side effects of topical steroids discussed including skin atrophy, developmen t of stria, telangiect asias, hypopigmen tation, or tachyphyla xis were discussed regarding use of the topical steroid, and patient was advised not to use continuous ly to minimize these effects. Health Concerns Section Related Observation LastModified by Organization Detai ls LastModified Time None Recorded Concern Status LastModified by Organization Details LastModified Time None Recorded Advance Directives Directive None Recorded Payers Encounter Date Sequence Insurance Name Policy Number Policy Hatch Covered Member ID Hatch Member ID Guarantor Name 01/28/2024 1 [employer] [id number] Roslyn Pardo [id number] Roslyn Sanz Char 01/28/2024 2 [place] [employer] Roslyn Laoalli [id number] Roslyn Sanz Char Notes Date Note Type Note Provider Name and Address Organization Details Recorded Time 01/28/2024 text/html Roslyn is here fo r recheck of psoriasis. Patient has been injecting humira 40mg/0.4mL every 2 weeks since last visit. She feels it is well controlled. She uses clobetasol solution and calcipotriene ointment prn.Last TB, CBC, and CMP in system was 12/13/22. YANDY GARCIA MD [address] [place] [address], [id number], [facility] 01/28/2024 12:05:06 OBGyn Episode No OBEpisode recorded.
--- OUTSIDE RECORDS SUMMARY | 2024-08-17 19:25 | XMS_ITS | Encounter Summary ---
Author Organization [facility] Address [address] [place], [place] [address] [address] Care Team Providers Care Sealing And Canceling Machine Operator Name Role Phone Enrique Gandhi MD Primary Care Provider [phone] Anupama Cuba DO Primary Care Provider [phone]- [phone] Janet You PA-C Primary Care Provider [phone] Reason for Visit * Reason Onset Date Comments MEDICATION REFILL 01/06/2018 Encounter Details Date Type Department Care Team (Late st Contact Info) Description 01/06/2018 Refill [facility] [address] [place] [address] Mary Jo Dukes MD [address] [place] [id number] MEDICATION REFILL Social History Tobacco Use Types Packs/Day Years Used Date Smoking Tobacco: Never Assessed Sex and Gender Information Value Date Recorded Sex Assigned at Not on file Gender Identity Not on file Sexual Orientation Not on file documented as of this encounter Plan of Treatment Not on file documented as of this encounter Visit Diagnoses Not on filedocumented in this encounter Care Teams Sealing And Canceling Machine Operator Relationship Specialty Start Date End Date Enrique Gandhi MD [address] [facility] [address] [place] [address] PCP - General Family Medicine 06/20/16 11/02/20 Anupama Cuba DO [address] [facility] [address] [place] [address] PCP - General 11/03/20 07/10/22 Janet You PATraceeC [address] [place] [address] PCP - General 07/11/22 documented as of this encounter
--- OUTSIDE RECORDS SUMMARY | 2024-08-17 19:25 | XMS_ITS | Encounter Summary ---
Author Organization [facility] Address [address] [place], [place] [address] [address] Care Team Providers Care Computer Science Teacher Name Role Phone Enrique Gandhi MD Primary Care Provider [phone] Anupama Cuba DO Primary Care Provider [phone]- [phone] Janet You PA-C Primary Care Provider [phone] Reason for Visit * Reason Onset Date Comments MEDICATION REFILL 07/28/2018 Encounter Details Date Type Department Care Team (Late st Contact Info) Description 07/28/2018 Refill [facility] [address] [place] [address] Mary Jo Dukes MD [address] [place] [address] MEDICATION REFILL Social History Tobacco Use Types [...] on filedocumented in this encounter Care Teams Computer Science Teacher Relationship Specialty Start Date End Date Enrique Gandhi MD [address] [facility] [address] [place] [address] PCP - General Family Medicine 06/20/16 11/02/20 Anupama Cuba DO [address] [facility] [address] [place] [address] PCP - General 11/03/20 07/10/22 Janet You PATraceeC [address] [place] [address] PCP - General 07/11/22 documented as of this encounter
--- OUTSIDE RECORDS SUMMARY | 2024-08-17 19:25 | XMS_ITS | Patient Health Summary ---
Author Organization [facility] Address [address] [place] [address] Care Team Providers Care Sky Cap Name Role Phone Janet You PA-C Primary Care Provider [phone] Note from [facility],non-owned Affiliates and Associated Physician Practices is amultiple site organization consisting of ambulatory clinics and hospital sitesin [place], [place], [place] and [place]. This disclosure is being madepursuant to the Care Everywhere program and may not contain all information available regarding this patient. Last updated 18.[facility] Allergies No known active allergies Medications * Be aware that medications may not be up to date on this document. Alwaysverify current medications with the patient. * aspirin EC (ECOTRIN) 81 MG tablet aspirin 81 mg tablet,delayed release * atorvastatin (LIPITOR) 40 MG tablet(Started 08/25/2020) * carvedilol (COREG) 12.5 MG tablet carvedilol 12.5 mg tablet * cloNIDine (CATAPRES) 0.2 MG tablet clonidine HCl 0.2 mg tablet * cyclobenzaprine (FLEXERIL) 10 MG tablet(Started 07/11/2020) TAKE 1 TABLET BY MOUTH DAILY AT BEDTIME NEEDED * DULoxetine (CYMBALTA) 60 MG capsule duloxetine 60 mg capsule,delayed release * DULoxetine (CYMBALTA) 30 MG capsule(Started 08/25/2020) * albuterol HFA (PROVENTIL;VENTOLIN;PROAIR) 108 (90 Base) MCG/ACT inhaler (Started 07/11/2020) Inhale 2 puffs by mouth every 4 hours as needed * levothyroxine (SYNTHROID) 150 MCG tablet Take 150 mcg by mouth once daily * lisinopril (PRINIVIL;ZESTRIL) 5 MG tablet(Started 08/25/2020) 10 mg * meloxicam (MOBIC) 15 MG tablet meloxicam 15 mg tablet * methadone (DOLOPHINE) 10 MG tablet Take 200 mg by mouth once daily * mirabegron ER 24hr (MYRBETRIQ) 25 MG tablet(Started 08/07/2020) Myrbetriq 25 mg tablet,extended release TAKE 1 TABLET BY MOUTH EVERY DAY * mometasone (ELOCON) 0.1 % solution (lotion)(Started 08/03/2020) APPLY THIN LAYER TOPICALLY TO THE AFFECTED AREA TWICE DAILY * nitroGLYCERIN (NITROSTAT) 0.4 MG tablet Nitrostat 0.4 mg sublingual tablet * omeprazole (PRILOSEC) 20 MG capsule omeprazole 20 mg capsule,delayed release * pilocarpine hcl, oral, (SALAGEN) 5 MG tablet(Started 08/12/2020) Take 5 mg by mouth as needed * spironolactone (ALDACTONE) 25 MG tablet spironolactone 25 mg tablet * zolpidem (AMBIEN) 5 MG tablet(Started 09/17/2019) as needed * budesonide (PULMICORT) 0.25 MG/2ML nebulizer suspension Inhale 0.25 mg by mouth 2 times daily * furosemide (LASIX) 20 MG tablet Take 20 mg by mouth once daily * clobetasol (TEMOVATE) 0.05 % solution(Started 04/18/2021) 2 times daily * calcipotriene (DOVONEX) 0.005 % ointment(Started 05/02/2021) Active Problems Problem Noted Date Diagnosed Date Obstructive sleep apnea (adult) (pediatric) 03/16 Smoking 01/28/2021 Disorder of toe 10/11/2020 Chronic venous insufficiency 09/27/2020 Ingrown left greater toenail 09/25/2017 Pain of left great toe 09/25/2017 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 Myalgia and myositis 09/20/2014 Chronic hepatitis C virus infection 09/20/2014 Chronic low back pain 09/20/2014 Fatigue 09/20/2014 Psoriasis 09/20/2014 Resolved Problems Problem Noted Date Diagnosed Date Resolved Date Osteomyelitis 10/11/2020 01/11/2021 Social History Tobacco Use Types Packs/Day Years Used Date Smoking Tobacco: Every Day Cigarettes Last attempted to quit: 09/20/2020 Smokeless Tobacco: Never Alcohol Use Standard Drinks/Week Comments Not Currently 0 (1 standard drink = 0.6 oz pur e alcohol) Sex and Gender Information Value Date Recorded Sex Assigned at Not on file Gender Identity Not on file Sexual Orientation Not on file Last Filed Vital Signs Vital Sign Reading Time Taken Comments Blood Pressure 158/87 05/05/2021 10:31 AM CDT Pulse 65 05/05/2021 10:31 AM CDT Temperature 36.3 ??C (97.3 ??F) 11/08/2020 1:47 PM CD T Respiratory Rate 18 01/31/2015 12:0 4 PM CDT Oxygen Saturation 97% 11/08/2020 1:47 PM CDT Inhaled Oxygen Concentration - - Weight 107.8 kg (237 lb 9.6 oz) 021 10:31 AM CDT Height 162.6 cm (5' 4 ) 05/05/2021 10:3 1 AM CDT Body Mass Index 40.78 05/05/2021 10:31 AM CDT Procedures * LAB RESULTS ORDER(Performed 05/10/2021) * COMPREHENSIVE METABOLIC PANEL(Performed 05/09/2021) Performed for Chronic hepatitis C without hepatic coma (HCC) * CBC W AUTO DIFFERENTIAL(Performed 05/09/2021) Performed for Chronic hepatitis C without hepatic coma (HCC) * HEPATITIS C RNA QUANTITATIVE(Performed 05/02/2021) * METHADONE BLOOD QUANTITATIVE(Performed 05/02/2021) * HCV RNA PCR QNT (EXTERNAL RESULT ENTRY)(Performed 05/02/2021) * LAB RESULTS ORDER(Performed 05/02/2021) * HEPATITIS C RNA QUANTITATIVE(Performed 02/07/2021) * CBC W AUTO DIFFERENTIAL(Performed 02/07/2021) * COMPREHENSIVE METABOLIC PANEL(Performed 02/07/2021) * US ABDOMEN LIMITED(Performed 12/15/2020) Performed for Chronic hepatitis C without hepatic coma (HCC) * HEPATITIS C RNA QUANTITATIVE(Performed 12/09/2020) Performed for Chronic hepatitis C without hepatic coma (HCC) * COMPREHENSIVE METABOLIC PANEL(Performed 12/09/2020) Performed for Chronic hepatitis C without hepatic coma (HCC) * CBC W AUTO DIFFERENTIAL(Performed 12/09/2020) Performed for Chronic hepatitis C without hepatic coma (HCC) * OH LIVER ELASTOGRAPHY(Performed 11/08/2020) Performed for Chronic hepatitis C without hepatic coma (HCC) * HEPATITIS B CORE ANTIBODY TOTAL(Performed 10/11/2020) Performed for Chronic hepatitis C without hepatic coma (HCC) * HEPATITIS B SURFACE ANTIBODY(Performed 10/11/2020) Performed for Chronic hepatitis C without hepatic coma (HCC) * HEPATITIS B SURFACE ANTIGEN W RFLX CONFIRMATION(Performed 10/11/2020) Performed for Chronic hepatitis C without hepatic coma (HCC) * HEPATITIS C GENOTYPE(Performed 10/11/2020) Performed for Chronic hepatitis C without hepatic coma (HCC) * PT-INR SLH(Performed 10/11/2020) Performed for Chronic hepatitis C without hepatic coma (HCC) * LAB HISTORICAL RESULTS-ONBASE(Performed 04/09/2017) * LAB HISTORICAL RESULTS-ONBASE(Performed 06/21/2016) * HEPATITIS C QUANT RT PCR GRAPHICAL(Performed 06/12/2016) * ALDOLASE(Performed 06/12/2016) * SS-A/SS-B (SJOGREN'S) ANTIBODY PANEL(Performed 06/12/2016) * COMPREHENSIVE METABOLIC PANEL(Performed 06/12/2016) * C-REACTIVE PROTEIN(Performed 06/12/2016) * CK BLOOD(Performed 06/12/2016) * GGT(Performed 06/12/2016) * LDH BLOOD(Performed 06/12/2016) * RHEUMATOID FACTOR BLOOD QUANTITATIVE(Performed 06/12/2016) * COMPREHENSIVE METABOLIC PANEL(Performed 06/12/2016) * HLA TYPING B27(Performed 11/25/2014) * HISTONE ANTIBODY(Performed 11/25/2014) * CYCLIC CITRULLINATED PEPTIDE(CCP) AB IGG(Performed 11/25/2014) * COMPLEMENT TOTAL(Performed 11/25/2014) * LAWRENCE (SM) ANTIBODY NEVA(Performed 11/25/2014) * SS-A/SS-B (SJOGREN'S) ANTIBODY PANEL(Performed 11/25/2014) * APPRAISAL COORDINATOR ANTIBODY(Performed 11/25/2014) * SCLERODERMA 70 (SCL) ANTIBODY(Performed 11/25/2014) * DNA ANTIBODY DOUBLE STRANDED(Performed 11/25/2014) * CRISS BLOOD SCREEN W/REFLEX TITER(Performed 11/25/2014) * RHEUMATOID FACTOR BLOOD QUANTITATIVE(Performed 11/25/2014) * HEPATITIS B SURFACE ANTIGEN W RFLX CONFIRMATION(Performed 11/25/2014) * T4 FREE(Performed 11/25/2014) * TSH(Performed 11/25/2014) * URIC ACID BLOOD(Performed 11/25/2014) * CK BLOOD(Performed 11/25/2014) * URINALYSIS W/MICROSCOPIC NO CULTURE(Performed 11/25/2014) * C-REACTIVE PROTEIN(Performed 11/25/2014) * ERYTHROCYTE SEDIMENTATION RATE(Performed 11/25/2014) * CBC W/O DIFFERENTIAL(Performed 11/25/2014) * COMPREHENSIVE METABOLIC PANEL(Performed 11/25/2014) * HEPATITIS C ANTIBODY(Performed 11/25/2014) * COMPLEMENT C4(Performed 11/25/2014) * COMPLEMENT C3(Performed 11/25/2014) * URINALYSIS MICROSCOPIC ONLY REFLEXED(Performed 11/25/2014) Results * LAB RESULTS ORDER (05/10/2021 9:00 AM CDT) Only the most recent of2 resultswithin the time period is included. Narrative 05/10/2021 9:00 AM CDT Ordered by an unspecified provider. Scanned Document LAB - THERAPEUTIC DR KUMAR MONITORING ORDERABLES * CBC WITH DIFFERENTIAL (05/09/2021 8:47 AM CDT) Only the most recent of3 resultswithin the time period is included. White Blood Cell Count 9.4 3.8 - 10.8 Thousand/u L [facility] RBC 4.02 3.80 - 5.10 Million/uL [facility] Hemoglobin 11.8 11.7 - 15.5 g/dL [facility] Hematocrit 36.5 35.0 - 45.0 % [facility] MCV 90.8 80.0 - 100.0 fL [facility] MCH 29.4 27.0 - 33.0 pg [facility] MCHC 32.3 32.0 - 36.0 g/dL [facility] RDW 13.2 11.0 - 15.0 % [facility] Platelet Count 269 140 - 400 Thousand/u L [facility] MPV 10.6 7.5 - 12.5 fL [facility] Neutrophil Absolute 6533 1500 - 7800 cells/uL [facility] Lymphocytes Absolute 1908 850 - 3900 cells/uL [facility] Absolute Monocytes 649 200 - 950 cells/uL [facility] Eosinophils Absolute 291 15 - 500 cells/uL [facility] Basophils Absolute 19 0 - 200 cells/uL [facility] Granulocytes % 69.5 % [facility] Lymphocytes % 20.3 % [facility] Monocytes % 6.9 % [facility] Eosinophils % 3.1 % [facility] Basophils % 0.2 % [facility] Comment: REPORT COMMENT: CC: Test Performed at: [facility] [address] [place], [place] ??[phone] TORSTEN BROWN DO,MPH Blood BLOOD SPECIMEN / Unknown 05/09/2021 8:47 AM CDT 05/09/2021 8:48 AM CDT eRgina Deluca MANAGER INTENSIVE CARE-NURSE EMERGENCY LAB - HEMATO LOGY ORDERABLES [facility] [id number] [address] [place] [id number] * (ABNORMAL) COMPREHENSIVE METABOLIC PANEL (05/09/2021 8:47 AM CDT) Only the most recent of6 resultswithin the time period is included. Glucose 94 65 - 99 mg/dL [facility] Comment: ? Fasting reference interval BUN 11 7 - 25 mg/dL [facility] Creatinine 1.08(H) 0.50 - 1.05 mg/dL [facility] Comment: For patients >49 years of age, the reference limit for Creatinine is approximately 13% higher for people identified as -Spanish. eGFR by MDRD 57(L) > OR = 60 mL/min/1. 73m2 [facility] eGFR by MDRD 66 > OR = 60 mL/min/1. 73m2 [facility] BUN/Creatinine Ratio 10 6 - 22 (calc) [facility] Sodium 141 135 - 146 mmol/L [facility] Potassium 4.1 3.5 - 5.3 mmol/L [facility] Chloride 100 98 - 110 mmol/L [facility] CO2 32 20 - 32 mmol/L [facility] Calcium 8.6 8.6 - 10.4 mg/dL [facility] Protein Total 6.8 6.1 - 8.1 g/dL [facility] Albumin 4.0 3.6 - 5.1 g/dL [facility] Globulin Total 2.8 1.9 - 3.7 g/dL (calc) [facility] Albumin/Globulin Ratio 1.4 1.0 - 2.5 (calc) [facility] Bilirubin Total 0.4 0.2 - 1.2 mg/dL [facility] Alkaline Phosphatase 125 37 - 153 U/L [facility] AST 13 10 - 35 U/L [facility] ALT 9 6 - 29 U/L [facility] Comment: Test Performed at: [facility] [address] [place], [place] ??[phone] TORSTEN BROWN DO,MPH Blood BLOOD SPECIMEN / Unknown 05/09/2021 8:47 AM CDT 05/09/2021 8:48 AM CDT Regina Deluca MANAGER INTENSIVE CARE-NURSE EMERGENCY LAB - CHEMIS TRY ORDERABLES [place] [id number] [place] [address] * (ABNORMAL) METHADONE BLOOD QUANTITATIVE (05/02/2021 8:49 AM CDT) [facility] Methadone 1428(H) 100 - 400 ng/mL [facility] Comment: ? This result was generated using LC-MS/MS; an equivalent method to GC/MS. ? Potentially Toxic Range: >= 2000 ng/mL This test was developed and its analytical performance characteristics have been determined by [facility] [place], [place]. It has not been cleared or approved by the U.S. Food and Drug Administration. This assay has been validated pursuant to the CLIA regulations and is used for clinical purposes. Test Performed at: [facility] [address] ??[phone] SHAWANDA WEN MD,PHD 05/02/2021 8:49 AM CDT 05/02/2021 8:49 AM CDT Regina Deluca APRN-NURSE EMERGENCY LAB - TOXICO LOGY ORDERABLES Performing Organization Address [facility] de Phone Number [facility] [phone] [place] [address] * HEPATITIS C RNA QUANTITATIVE (05/02/2021 8:49 AM CDT) Only the most recent of3 resultswithin the time period is included. Pathologist [facility] Hepatitis C Virus RNA, Quantitative Real Time PCR <15 NOT DETECTED NOT DETECTED IU/mL [facility] Hepatitis C Virus RNA, Quantitative Real Time PCR <1.18 NOT DETECTED NOT DETECTED Log IU/mL [employer] Comment: This test was performed using Real-Time Polymerase Chain Reaction. Reportable Range: 15 IU/mL to 100,000,000 IU/mL (1.18 Log IU/mL to 8.00 Log IU/mL). ?? The analytical performance characteristics of this assay have been determined by [facility]. The modifications have not been cleared or approved by the FDA. This assay has been validated pursuant to the CLIA regulations and is used for clinical purposes. ?? For more information on this test, go to: http://education.[employer]/faq/WGP33s3 (This link is being provided for informational/ educational purposes only.) REPORT COMMENT: CC DR Lynnette LE Test Performed at: [facility] [address] ??[phone] TORSTEN BROWN DO,MPH 05/02/2021 8:49 AM CDT 05/02/2021 8:49 AM CDT Regina Deluca APRN-NURSE EMERGENCY LAB - CHEMIS TRY ORDERABLES Performing Organization Address [facility] Co de Phone Number [facility] [phone] [place] [address] * HCV RNA PCR QNT (EXTERNAL RESULT ENTRY) (05/02/2021) [facility] HCV RNA Quantitative RT-PCR (EXTERNAL RESULT) not detected [facility] Blood BLOOD SPECIMEN / Unknown 05/02/2021 Historical Provider LAB - CHEMISTRY O RDERABLES [facility] [address] [place] [address], [facility] [phone] * US ABDOMEN LIMITED (12/15/2020 2:50 PM CDT) Anatomical Region Laterality Modality Abdomen Ultrasound 12/15/2020 2:31 PM CDT Impressions 12/15/2020 3:22 PM CDT IMPRESSION: 1.Mildly coarsened hepatic parenchymal echotexture, consistent with chronic liver disease. No evidence of focal hepatic observations to suggest hepatocellular carcinoma. 2.Normal gallbladder. Dictated by Pablo Carranza MD (surgeon/president) This report was approved ??by Pablo Carranza Dr ?? on 12/15/2020 3:04 PM . I, Dr. LUIS EDUARDO DUNBAR M.D. have personally reviewed and interpreted this examination/study. This report was electronically signed by LUIS EDUARDO DUNBAR M.D. ??on 12/15/2020 3:22 PM . Narrative 12/15/2020 3:22 PM CDT EXAMINATION: Limited abdominal sonogram HISTORY: B18.2: Chronic hepatitis C without hepatic coma COMPARISON: No prior study is available for comparison. FINDINGS: Hepatic echogenicity is within normal limits. The hepatic echotexture is mildly coarsened. The hepatic contours are smooth. No discrete hepatic mass or intrahepatic biliary dilation is seen. No gallstones or pericholecystic fluid is seen. The gallbladder wall is normal in thickness, measuring 3 mm. Sonographic Thurman's sign is negative. The common bile duct is nondilated, measuring 4 mm. The right kidney measures 11.4 x 5.2 x 4.3 cm. Limited views of the right kidney reveal no evidence of nephrolithiasis or hydronephrosis. The spleen measures 12.2 cm in length. The pancreas is obscured secondary to overlying bowel gas. No ascites is present. Procedure Note Luis Eduardo Dunbar MD - 12/15/2020 EXAMINATION: Limited abdominal sonogram HISTORY: B18.2: Chronic hepatitis C without hepatic coma COMPARISON: No prior study is available for comparison. FINDINGS: Hepatic echogenicity is within normal limits. The hepatic echotexture is mildly coarsened. The hepatic contours are smooth. No discrete hepatic mass or intrahepatic biliary dilation is seen. No gallstones or pericholecystic fluid is seen. The gallbladder wall is normal in thickness, measuring 3 mm. Sonographic Thurman's sign is negative. The common bile duct is nondilated, measuring 4 mm. The right kidney measures 11.4 x 5.2 x 4.3 cm. Limited views of theright kidney reveal no evidence of nephrolithiasis or hydronephrosis. Thespleen measures 12.2 cm in length. The pancreas is obscured secondary to overlying bowel gas. No ascites is present. IMPRESSION: 1.Mildly coarsened hepatic parenchymal echotexture, consistent with chronic liver disease. No evidence of focal hepatic observations to suggest hepatocellular carcinoma. 2.Normal gallbladder. Dictated by Pablo Carranza MD (surgeon/president) This report was approved by Pablo Carranza Dr on 12/15/2020 3:04 PM . I, Dr. LUIS EDUARDO DUNBAR M.D. have personally reviewed and interpreted this examination/study. This report was electronically signed by LUIS EDUARDO DUNBAR M.D. on12/15/2020 3:22 PM . Regina Deluca MANAGER INTENSIVE CARE-NURSE EMERGENCY US ORDERABLE S * PROC FIBROSCAN (11/08/2020 2:02 PM CDT) Narrative Ephraim Falk MD - 11/08/2020 2:02 PM CDT Ephraim Falk MD ? 11/08/2020 ??2:47 PM Diagnosis: Hepatitis C RN verified patient not , no implanted devices and NPO for prior 3 hours. Vital signs taken, procedure explained and consent signed. Date of Exam: 11/08/2020 Liver Stiffness: (LSM, kPa) median: ??11.1 IQR (interquartile range): ?? 2.3 IQR/Median% (ideally < 30%): ??21 CAP (controlled attenuation parameter): ??258 Technical Difficulty: None Ordering Provider: Regina Deluca GERIATRICS PHYSICIAN Phone Fax Fibroscan interpretation: I have personally reviewed the Fibroscan report and associated tracings. The calculated Liver Stiffness Measurement (LSM, kPa) indicates that: The probability of advanced liver fibrosis is: moderate. The loss of ultrasound signal, (controlled attenuation parameter, CAP [dB/m]), indicates that the probability of hepatic steatosis is: moderate. Ephraim Falk MD The following criteria are used to indicate the probability of advanced (stage 3-4) fibrosis: < 7.0 kPa: low 7.0-8.9 kPa: low to moderate 9.0-14.9 kPa: moderate 15-20 kPa: high > 20 kPa: very high Liver stiffness > 20 kPa is also associated with a high probability of complications of portal hypertension including varices and ascites. Liver stiffness > 50 kPa is associated with a high risk of variceal bleeding. These interpretations are based on the following published data: Cristy PJ, Mely M, Nickie M, et al. Accuracy of FibroScan controlled attenuation parameter and liver stiffness measurement in assessing steatosis and fibrosis in patients with nonalcoholic fatty liver disease. Gastroenterology 2019;156:1029-9148. Rachel MS, Loida R, Van Gabriel ML, et al. Vibration-controlled transient elastography to assess fibrosis and steatosis in patients with nonalcoholic fatty liver disease. Clin Gastroenterol Hepatol 2019;17:156-163. Note: 1. Fibroscan cannot reliably identify earlier stages of fibrosis (ie distinguish F0 from F1 and F2) and thus a histologic stage cannot be predicted from the Fibroscan reading. 2. Assessing the likelihood of advanced fibrosis in patients with indeterminate liver stiffness measurement (LSM) by Fibroscan (e.g., 8-15 kPa) can be improved by also calculating the FIB4 score (Jermainuke et al. Hepatology Communications 2019;3:6991-4292) or NAFLD Fibrosis score (Raza et al. Clinical Gastroenterology and Hepatology 2019;17:0299-2942. from routine clinical data. 3. Liver stiffness can be increased by factors other than fibrosis including passive congestion, infiltrative processes, active alcoholism, biliary obstruction and marked inflammation. The interpretation of the Fibroscan result provided above may not have taken such clinical factors into account. Disease etiology also influences Fibroscan cutoff values for fibrosis stages and the following cutoffs have been proposed (Trinity et al, Clin Gastro Hepatol 2015; 13:27-36): Cutoffs for Stage 3 and Stage 4 fibrosis respectively: Hepatitis B: >9 and >11.7 kPa Hepatitis C: >9.5 and >12.5 kPa HCV-HIV: >11 and >14 kPa Cholestatic liver diseases: >10 and >17.9 kPa NAFLD/STAPLES: >10 and >14 kPa CAP estimates of steatosis: normal <200 dB/m mild 200 to 250 dB/m moderate 250-290 dB/m substantial > 290 dB/m (Note that Fibroscan is not a quantitative measure of liver fat.) These criteria are estimates and may change as additional supporting data becomes available. [email or web address] Regina Deluca APRN-NURSE EMERGENCY PROCEDURE/SD NOR SURGICAL ORDERABLES * PT-INR [facility] (10/11/2020 3:01 PM CDT) PT 13.6 12.1 - 14.8 Seconds 10/11/2020 4:09 PM CDT [facility] INR 1.1 See Comment 10/11/2020 4:09 PM CDT [facility] Comment:The suggested therap eutic range for standard coumadin (warfarin) therapy is an INR of 2.0-3.0. For high-risk patients (Mechanical Mitral Valve Prosthesis, etc.), the suggested prophylactic therapeutic range is an INR of 2.5-3.5. Blood BLOOD SPECIMEN / Unknown Lab Venipuncture / Unknown 10/11/2020 3:01 PM CDT 10/11/2020 3:59 PM CDT Regina Deluca APRN-NURSE EMERGENCY LAB - COAGUL ATION ORDERABLES Performing Organization Address City/State/[facility] Co de Phone Number [facility] [address] [place] [phone], [facility] [phone] * HEPATITIS C GENOTYPE (10/11/2020 3:01 PM CDT) Hepatitis C Genotype 1a or 1b 10/15/2020 9:53 AM CDT [employer] ([facility]) Comment: Cannot be further subtyped into Type 1a or Type 1b due to high conservation of the 5' untranslated region of the HCV genome. In addition, Type 6 virus may be misclassified as Type 1 in some cases. The Hepatitis C Virus High-Resolution Genotype by Sequencing test ([employer] test code [id number]) provides a higher level of subtype resolution. INTERPRETIVE INFORMATION: ??Hepatitis C Genotyping Hepatitis C Viral RNA is tested using reverse consulting project director polymerase chain reaction (RT-PCR) to amplify a specific portion of the 5' untranslated region (5' UTR) of the viral genome. The amplified nucleic acid is sequenced bi-directionally using dye-terminator chemistry ([employer]). Sequencing data is compared to a database of characterized sequences. Isolates of hepatitis C virus are grouped into six major genotypes (1-6). These genotypes are subtyped according to sequence characteristics. Due to high conservation of the 5' un-translated region of the HCV genome, this test has limitations in differentiating subtype 1a from 1b. Therefore, these subtypes will be reported as 1a or 1b. In rare instances, Type 6 virus may be misclassified as Type 1. This test was developed and its performance characteristics determined by [employer]. It has not been cleared or approved by the US Food and Drug Administration. This test was performed in a CLIA certified laboratory and is intended for clinical purposes. Performed By: [facility] [address] [place] [address] Brokerage Office Manager: Roslyn Mcneal MD Blood BLOOD SPECIMEN / Unknown Lab Venipuncture / Unknown 10/11/2020 3:01 PM CDT 10/11/2020 3:53 PM CDT Regina Deluca MANAGER INTENSIVE CARE-NURSE EMERGENCY LAB - CHEMIS TRY ORDERABLES [facility] ([facility]) [address] [place] [address], [facility] * HEPATITIS B SURFACE ANTIBODY (10/11/2020 3:01 PM CDT) Hepatitis B Virus Surface Antibody Non-react nishi Non-react nishi 10/11/2020 5:20 PM CDT [facility] Comment: < 8 mIU/mL Hepatitis B surface Antibody (HBsAb). Nonreactive for HBsAb - individual is considered not immune to Hepatitis B Virus infection. Hepatitis B Surface Antibody Quantitative 7.7 <8.0 mIU/mL 10/11/2020 5:20 PM CDT [facility] Comment: Hepatitis B Surface Antibody Numeric Result Interpretation: ? Nonreactive: ?<8.0 mIU/mL ? Indeterminate: ??8.0 - 12.0 mIU/mL ? Reactive: ?>12.0 mIU/mL ? Blood BLOOD SPECIMEN / Unknown Lab Venipuncture / Unknown 10/11/2020 3:01 PM CDT 10/11/2020 3:53 PM CDT Regina Deluca MANAGER INTENSIVE CARE-NURSE EMERGENCY LAB - [employer] TRY ORDERABLES Performing Organization Address [facility] de Phone Number [address] [address], [facility] [phone] * HEPATITIS B CORE ANTIBODY (10/11/2020 3:01 PM CDT) HBc Antibody Total Non-reacti ve Non-reacti ve 10/11/2020 5:26 PM CDT [facility] Blood BLOOD SPECIMEN / Unknown Lab Venipuncture / Unknown 10/11/2020 3:01 PM CDT 10/11/2020 3:53 PM CDT Regina Deluca MANAGER INTENSIVE CARE-NURSE EMERGENCY [employer] TRY ORDERABLES Performing Organization Address [facility] de Phone Number [address] [address] [address], [facility] [phone] * HEPATITIS B SURFACE ANTIGEN W RFLX CONFIRMATION (10/11/2020 3:01 PM CDT) Only the most recent of2 resultswithin the time period is included. Hepatitis B Virus Surface Antigen Non-reacti ve Non-reacti ve 10/11/2020 5:26 PM CDT [facility] Blood BLOOD SPECIMEN / Unknown Lab Venipuncture / Unknown 10/11/2020 3:01 PM CDT 10/11/2020 3:53 PM CDT Regina Deluca MANAGER INTENSIVE CARE-NURSE EMERGENCY LAB - Central Logic TRY ORDERABLES Performing Organization Address [facility]/ZIP Co de Phone Number [facility] [address] [place] [address], [facility] [phone] * LAB HISTORICAL RESULTS-ONBASE (04/09/2017) Only the most recent of2 resultswithin the time period is included. 04/09/2017 Historical Provider LAB - CHEMISTRY O RDERABLES Performing Organization Address [facility] Co de Phone Number [facility] [address] [place], [place] [phone] [place] [address] * HEPATITIS C QUANT RT PCR GRAPHICAL (06/12/2016 10:23 AM VOICE STUDIES DIRECTOR) Hepatitis C Virus RNA IU/mL [id number] IU/mL [facility] ([employer]) Hepatitis C Virus RNA IU/mL 6.033 log10 IU/mL [facility] ([employer]) Test Information [facility] [employer] [facility] ([employer]) Comment:The quantitative ran ge of this assay is 15 IU/mL to 100 million IU/mL. 06/12/2016 10:2 3 AM VOICE STUDIES DIRECTOR 06/12/2016 Narrative [facility] ([employer]) - 06/14/2016 3:19 PM VOICE STUDIES DIRECTOR Performed at: ??01 - Lab[address] ??[id number] Hearing Healthcare Practitioner: Torsten Benson MD, Phone: ??[phone] Mary Jo Dkues MD LAB - CHEMISTR Y ORDERABLES Performing Organization Address City/[facility] Co de Phone Number [facility] ([employer]) * (ABNORMAL) RHEUMATOID FACTOR BLOOD QUANTITATIVE (06/12/2016 10:23 AM VOICE STUDIES DIRECTOR) Only the most recent of2 resultswithin the time period is included. RA latex Turbidimetry 25.2(H) 0.0 - 13.9 IU/mL [facility] ([employer]) 06/12/2016 10:2 3 AM VOICE STUDIES DIRECTOR 06/12/2016 Narrative [facility] ([employer]) - 06/13/2016 7:12 AM VOICE STUDIES DIRECTOR Performed at: ??01 - [facility]Co[address] ??[id number] Hearing Healthcare Practitioner: Matt West PhD, Phone: ??[phone] Mary Jo Dukes MD LAB - CHEMISTR Y ORDERABLES Performing Organization Address [facility] de Phone Number [facility]) * (ABNORMAL) C-REACTIVE PROTEIN (06/12/2016 10:23 AM VOICE STUDIES DIRECTOR) Only the most recent of2 resultswithin the time period is included. C-Reactive Protein 12.6(H) 0.0 - 4.9 mg/L [facility] (BEAKER) 06/12/2016 10:2 3 AM VOICE STUDIES DIRECTOR 06/12/2016 Narrative [facility] ([facility]) - 06/13/2016 7:12 AM VOICE STUDIES DIRECTOR Performed at: ??01 - Lab[address] ??[id number] Hearing Healthcare Practitioner: Matt West PhD, Phone: ??[phone] Mary Jo Dukes MD LAB - CHEMISTR Y ORDERABLES Performing Organization Address [facility] de Phone Number [facility] (BEAKER) * (ABNORMAL) SS-A/SS-B (SJOGRENS) ANTIBODY PANEL (06/12/2016 10:23 AM VOICE STUDIES DIRECTOR) Only the most recent of2 resultswithin the time period is included. Sjogren's Antibodies (SSA) <0.2 0.0 - 0.9 AI [facility] (BEAKER) Sjogren's Antibodies (SSB) 1.6(H) 0.0 - 0.9 AI [facility] (BEAKER) 06/12/2016 10:2 3 AM VOICE STUDIES DIRECTOR 06/12/2016 Narrative [facility] (BEAKER) - 06/13/2016 3:13 PM VOICE STUDIES DIRECTOR Performed at: ??01 - [facility] [address] ??[id number] Hearing Healthcare Practitioner: Matt West PhD, Phone: ??[phone] Mary Jo Dukes MD LAB - CHEMISTR Y ORDERABLES Performing Organization Address [facility] Co de Phone Number [facility] ([facility]) * ALDOLASE (06/12/2016 10:23 AM VOICE STUDIES DIRECTOR) Aldolase 5.1 3.3 - 10.3 U/L [facility] (BEAKER) 06/12/2016 10:2 3 AM VOICE STUDIES DIRECTOR 06/12/2016 Narrative [facility] ([facility]) - 06/13/2016 3:13 PM VOICE STUDIES DIRECTOR Performed at: ?? - [address] ??[id number] Hearing Healthcare Practitioner: Matt West PhD, Phone: ??[phone] Mary Jo Dukes MD LAB - CHEMISTR Y ORDERABLES Performing Organization Address [facility] de Phone Number [facility] ([facility] * LDH BLOOD (06/12/2016 10:23 AM VOICE STUDIES DIRECTOR) LDH Total 209 119 - 226 IU/L [facility] (BEAKER) 06/12/2016 10:2 3 AM VOICE STUDIES DIRECTOR 06/12/2016 Narrative [facility] ([facility]) - 06/13/2016 7:12 AM VOICE STUDIES DIRECTOR Performed at: ??01 - [facility] [address] ??[id number] Hearing Healthcare Practitioner: Matt West PhD, Phone: ??[phone] Mary Jo Dukes MD LAB - CHEMISTR Y ORDERABLES Performing Organization Address [facility] de Phone Number [facility] ([facility]) * GGT (06/12/2016 10:23 AM VOICE STUDIES DIRECTOR) GGT 29 0 - 60 IU/L [facility] ([facility]) 06/12/2016 10:2 3 AM VOICE STUDIES DIRECTOR 06/12/2016 Narrative [facility] (BEAKER) - 06/13/2016 7:12 AM VOICE STUDIES DIRECTOR Performed at: ??01 - [facility] ??[id number] Hearing Healthcare Practitioner: Matt West PhD, Phone: ??[phone] Mary Jo Dukes MD LAB - CHEMISTR Y ORDERABLES Performing Organization Address City/[facility]/ZIP Co de Phone Number [facility] ([facility] * CK BLOOD (06/12/2016 10:23 AM VOICE STUDIES DIRECTOR) Only the most recent of2 resultswithin the time period is included. Pathologist [facility] CK Total 54 24 - 173 U/L [facility] ([facility]) 06/12/2016 10:2 3 AM VOICE STUDIES DIRECTOR 06/12/2016 Narrative [facility] ([facility]) - 06/13/2016 7:12 AM VOICE STUDIES DIRECTOR Performed at: ??01 - [address] ??[id number] Hearing Healthcare Practitioner: Matt West PhD, Phone: ??[phone] Mary Jo Dukes MD LAB - CHEMISTR Y ORDERABLES Performing Organization Address [facility] Co de Phone Number [facility] ([facility] * (ABNORMAL) URINALYSIS MICROSCOPIC ONLY REFLEXED (11/25/2014 1:25 PM CDT) WBC, UA 0-5 0 - 5 /hpf [facility] (BEAKER) RBC UA 0-2 0 - 2 /hpf [facility] (BEAKER) Epithelial Cells (non renal) 0-10 0 - 10 /hpf [facility] (BEAKER) Crystals Present(A) N/A [facility] (BEAKER) Crystal Type Calcium Oxalate N/A [facility] (BEAKER) Mucus UA Present Not Estab. [facility] (BEAKER) Bacteria UA None seen None seen/Few [facility] (BEAKER) 11/25/2014 1:25 PM CDT 11/25/2014 6:04 PM CDT Narrative [facility] (BEAKER) - 11/26/2014 7:19 AM CDT Performed at: ?? [facility] [address], [place], [place] ??[id number] Hearing Healthcare Practitioner: Yovani Davis PhD, Phone: ??[phone] Mary Jo Dukes MD LAB - URINALYS IS ORDERABLES [facility] (BEAKER) * URINALYSIS W/MICROSCOPIC NO CULTURE (11/25/2014 1:25 PM CDT) Specific [place] 1.015 1.005 - 1.030 [facility] (BEAKER) pH Urine 6.0 5.0 - 7.5 [facility] (BEAKER) Color UA Yellow Yellow [facility] (BEAKER) Appearance Clear Clear [facility] (BEAKER) Leukocyte Esterase Negative Negative [facility] (BEAKER) Protein UA Negative Negative/Tra ce [facility] (BEAKER) Glucose UA Negative Negative [facility] (BEAKER) Ketone UA Negative Negative [facility] (BEAKER) Occult Blood Negative Negative [facility] (BEAKER) Bilirubin Negative Negative [facility] (BEAKER) Urobilinogen Semi-Qn 0.2 0.0 - 1.9 mg/dL [facility] (BEAKER) Nitrite UA Negative Negative [facility] (BEAKER) Microscopic Examination [facility] (BEAKER) Comment:Microscopic follows if indicated. Microscopic Examination See below: [facility] (BEAKER) Comment:Microscopic was art cated and was performed. Urine specimen (specimen) URINE SPECIMEN OBTAINED BY CLEAN CATCH PROCEDURE / Unknown 11/25/2014 1:25 PM CDT 11/25/2014 6:04 PM CDT Narrative [facility] (BEAKER) - 11/26/2014 7:19 AM CDT Performed at: ?? - [address] ??[id number] Hearing Healthcare Practitioner: Yovani Davis PhD, Phone: ??[phone] Mary Jo Dukes MD LAB - URINALYS IS ORDERABLES Performing Organization Address [facility] Co de Phone Number [facility]) * URIC ACID BLOOD (11/25/2014 1:25 PM CDT) Uric acid 5.9 2.5 - 7.1 mg/dL [facility]) Comment:Therapeutic target f or gout patients: <6.0 Blood specimen (specimen) BLOOD SPECIMEN / Unknown 11/25/2014 1:25 PM CDT 11/25/2014 6:04 PM CDT Narrative [facility] - 11/26/2014 7:19 AM CDT Performed at: ??01 - [address] ??[id number] Hearing Healthcare Practitioner: Yovani Davis PhD, Phone: ??[phone] Mary Jo Dukes MD LAB - CHEMISTR Y ORDERABLES Performing Organization Address [facility] de Phone Number [facility]) * LAWRENCE (SM) ANTIBODY NEVA (11/25/2014 1:25 PM CDT) Lawrence Antibody <0.2 0.0 - 0.9 AI [facility]) Blood specimen (specimen) BLOOD SPECIMEN / Unknown 11/25/2014 1:25 PM CDT 11/25/2014 6:04 PM CDT Narrative [facility] - 11/26/2014 3:21 PM CDT Performed at: ??01 - [address] ??[id number] Hearing Healthcare Practitioner: Yovani Davis PhD, Phone: ??[phone] Mary Jo Dukes MD LAB - CHEMISTR Y ORDERABLES Performing Organization Address City/[facility] Co de Phone Number [facility] ([facility]) * (ABNORMAL) APPRAISAL COORDINATOR ANTIBODY (11/25/2014 1:25 PM CDT) APPRAISAL COORDINATOR Antibody 1.0(H) 0.0 - 0.9 AI [facility] ([facility]) Blood specimen (specimen) BLOOD SPECIMEN / Unknown 11/25/2014 1:25 PM CDT 11/25/2014 6:04 PM CDT Narrative [facility]) - 11/26/2014 3:21 PM CDT Performed at: ??01 - [address] ??[id number] Hearing Healthcare Practitioner: Yovani Davis PhD, Phone: ??[phone] Mary Jo Dukes MD LAB - CHEMISTR Y ORDERABLES [facility] * CRISS BLOOD SCREEN W/REFLEX TITER (11/25/2014 1:25 PM CDT) CRISS IFA Negative [facility] ([facility] Comment: ? Negative ?? <1:80 ? Borderline ??1:80 ? Positive ?? >1:80 Blood specimen (specimen) BLOOD SPECIMEN / Unknown 11/25/2014 1:25 PM CDT 11/25/2014 6:04 PM CDT Narrative [facility] [place]) - 11/26/2014 3:21 PM CDT Performed at: ??01 - [address] ??[id number] Hearing Healthcare Practitioner: Yovani Davis PhD, Phone: ??[phone] Mary Jo Dukes MD LAB - CHEMISTR Y ORDERABLES Performing Organization Address [facility] de Phone Number [facility] ([facility] * HLA TYPING B27 (11/25/2014 1:25 PM CDT) HLA-B27 Positive [facility] ([facility] Comment: HLA-B*27 Positive This patient is positive for HLA-B*27. This procedure rules out the B*27:06 and 27:09 alleles, which the literature suggests are not associated with spondyloarthropathies. [facility] Lab CLIA ID Number [id number] This test was performed using PCR (Polymerase Chain Reaction)/SSOP (Sequence Specific Oligonucleotide Probes) technique. ??SBT (Sequence Based Typing) and/or SSP (Sequence Specific Primers) may be used as supplemental methods when necessary. ??Please contact HLA Customer Service at if you have any questions. Director of HLA Laboratory Dr Fredis Pierson, PhD Blood specimen (specimen) BLOOD SPECIMEN / Unknown 11/25/2014 1:25 PM CDT 11/25/2014 6:04 PM CDT Narrative [facility] ([facility] - 11/30/2014 3:24 PM CDT Performed at: ??01 - [facility] ??DNA [address] [place], [place] ??[id number] Hearing Healthcare Practitioner: Fredis Pierson PhD, Phone: ??[phone] Mary Jo Dukes MD LAB - CHEMISTR Y ORDERABLES Performing Organization Address [facility] de Phone Number [facility] ([facility] * HISTONE ANTIBODY (11/25/2014 1:25 PM CDT) Histone Antibody 0.8 0.0 - 0.9 Units [facility] ([facility] Comment: ? Negative ?<1.0 ? Weak Positive ?1.0 - 1.5 ? Moderate Positive ??1.6 - 2.5 ? Strong Positive ? >2.5 Blood specimen (specimen) BLOOD SPECIMEN / Unknown 11/25/2014 1:25 PM CDT 11/25/2014 6:04 PM CDT Narrative [facility] ([facility]AREN) - 11/30/2014 3:24 PM CDT Performed at: ??02 - [facility] ??[id number] Hearing Healthcare Practitioner: Torsten Benson MD, Phone: ??[phone] Mary Jo Dukes MD LAB - CHEMISTR Y ORDERABLES Performing Organization Address [facility] de Phone Number [facility] ([place]EN) * (ABNORMAL) COMPLEMENT TOTAL (11/25/2014 1:25 PM CDT) Complement Total CH50 >62(H) 42 - 62 U/mL [facility] ([place]AREN) Comment:Please note refere nce interval change Blood specimen (specimen) BLOOD SPECIMEN / Unknown 11/25/2014 1:25 PM CDT 11/25/2014 6:04 PM CDT Narrative [facility] [place]) - 11/27/2014 7:17 AM CDT Performed at: ??02 - [address], [place], [place] ??[id number] Hearing Healthcare Practitioner: Yovani Davis PhD, Phone: ??[phone] Mary Jo Dukes MD LAB - CHEMISTR Y ORDERABLES Performing Organization Address [facility] Co de Phone Number [facility] Systems[facility] [place]) * SCLERODERMA 70 (SCL) ANTIBODY (11/25/2014 1:25 PM CDT) Antiscleroderma -70 Antibody <0.2 0.0 - 0.9 AI [facility] ([facility] Blood specimen (specimen) BLOOD SPECIMEN / Unknown 11/25/2014 1:25 PM CDT 11/25/2014 6:04 PM CDT Narrative [facility] ([place]) - 11/26/2014 3:21 PM CDT Performed at: ??01 - [address] ??[id number] Hearing Healthcare Practitioner: Yovani Davis PhD, Phone: ??[phone] Mary Jo Dukes MD LAB - CHEMISTR Y ORDERABLES [facility]) * DNA ANTIBODY DOUBLE STRANDED (11/25/2014 1:25 PM CDT) Pathologist [facility] dsDNA Antibody 7 0 - 9 IU/mL [facility] ([facility]) Comment: ? Negative ?<5 ? Equivocal ??5 - 9 ? Positive ?>9 Blood specimen (specimen) BLOOD SPECIMEN / Unknown 11/25/2014 1:25 PM CDT 11/25/2014 6:04 PM CDT Narrative [facility] ([place]) - 11/26/2014 3:21 PM CDT Performed at: ??01 - [address] ??[id number] Hearing Healthcare Practitioner: Yovani Davis PhD, Phone: ??[phone] Mary Jo Dukes MD LAB - HEMATOLO GY ORDERABLES Performing Organization Address [facility] Co de Phone Number [facility] ([facility] * CYCLIC CITRUL PEPTIDE AB IGG (CCP) (11/25/2014 1:25 PM CDT) Cyclic Citrullinated Peptide Antibody 6 0 - 19 units [facility] ([facility] Comment: ?Negative ? <20 ?Weak positive ?20 - 39 ?Moderate positive ??40 - 59 ?Strong positive ?>59 Blood specimen (specimen) BLOOD SPECIMEN / Unknown 11/25/2014 1:25 PM CDT 11/25/2014 6:04 PM CDT Narrative [facility] MIHAELA) - 11/27/2014 7:17 AM CDT Performed at: ??01 - [address] ??[id number] Hearing Healthcare Practitioner: Torsten Benson MD, Phone: ??[phone] Mary Jo Dukes MD LAB - CHEMISTR Y ORDERABLES [facility] ([facility] * ERYTHROCYTE SEDIMENTATION RATE (11/25/2014 1:25 PM CDT) Erythrocyte Sedimentation Rate Westergren 15 0 - 32 mm/hr [facility] ([facility]) Blood specimen (specimen) BLOOD SPECIMEN / Unknown 11/25/2014 1:25 PM CDT 11/25/2014 6:04 PM CDT Narrative [facility] (BEAKER) - 11/26/2014 7:19 AM CDT Performed at: ?? - [facility] ??[id number] Hearing Healthcare Practitioner: Yovani Davis PhD, Phone: ??[phone] Mary Jo Dukes MD LAB - HEMATOLO GY ORDERABLES Performing Organization Address City/[facility]/ZIP Co de Phone Number [facility] (BEAKER) * CBC W/O DIFFERENTIAL (11/25/2014 1:25 PM CDT) WBC 4.9 3.4 - 10.8 x10E3/uL [facility] (BEAKER) RBC 4.08 3.77 - 5.28 x10E6/uL [facility] (BEAKER) Hemoglobin 12.0 11.1 - 15.9 g/dL [facility] (BEAKER) Hematocrit 34.9 34.0 - 46.6 % [facility] (BEAKER) MCV 86 79 - 97 fL [facility] (BEAKER) MCH 29.4 26.6 - 33.0 pg [facility] (BEAKER) MCHC 34.4 31.5 - 35.7 g/dL [facility] (BEAKER) RDW-CV 14.1 12.3 - 15.4 % [facility] (BEAKER) Platelet 251 150 - 379 x10E3/uL [facility] (BEAKER) Blood specimen (specimen) BLOOD SPECIMEN / Unknown 11/25/2014 1:25 PM CDT 11/25/2014 6:04 PM CDT Narrative [facility] (BEAKER) - 11/26/2014 7:19 AM CDT Performed at: ??01 - [facility] ??[id number] Hearing Healthcare Practitioner: Yovani Davis PhD, Phone: ??[phone] Mary Jo Dukes MD LAB - HEMATOLO GY ORDERABLES Performing Organization Address City/[facility]/ZIP Co de Phone Number [facility] (BEAKER) * COMPLEMENT C4 (11/25/2014 1:25 PM CDT) [facility] Complement C4 36 9 - 36 mg/dL Adult [facility] ([facility] Blood specimen (specimen) BLOOD SPECIMEN / Unknown 11/25/2014 1:25 PM CDT 11/25/2014 6:04 PM CDT Narrative [facility] ([facility] - 11/26/2014 7:19 AM CDT Performed at: ??01 - [address] ??[id number] Hearing Healthcare Practitioner: Yovani Davis PhD, Phone: ??[phone] Mary Jo Dukes MD LAB - SEROLOGY ORDERABLES Performing Organization Address [facility] Co de Phone Number [facility] ([facility] * TSH (11/25/2014 1:25 PM CDT) [facility] TSH 2.570 0.450 - 4.500 uIU/mL [facility] ([facility] Blood specimen (specimen) BLOOD SPECIMEN / Unknown 11/25/2014 1:25 PM CDT 11/25/2014 6:04 PM CDT Narrative [facility] ([facility] - 11/26/2014 7:19 AM CDT Performed at: ??[address] ??[id number] Hearing Healthcare Practitioner: Yovani Daivs PhD, Phone: ??[phone] Mary Jo Dukes MD LAB - CHEMISTR Y ORDERABLES [facility] ([facility] * T4 FREE (11/25/2014 1:25 PM CDT) [facility] T4 Free 0.85 0.82 - 1.77 ng/dL [facility] ([facility] Blood specimen (specimen) BLOOD SPECIMEN / Unknown 11/25/2014 1:25 PM CDT 11/25/2014 6:04 PM CDT Narrative [facility] MELODY CHAIREZ) - 11/26/2014 7:19 AM CDT Performed at: ??01 - [address] ??[id number] Hearing Healthcare Practitioner: Yovani Davis PhD, Phone: ??[phone] Mary Jo Dukes MD LAB - CHEMISTR Y ORDERABLES [facility] [place]) * (ABNORMAL) HEPATITIS C ANTIBODY (11/25/2014 1:25 PM CDT) Hepatitis C Virus Antibody >11.0(H) 0.0 - 0.9 s/co ratio [facility] [place]) Comment: ?Negative: ? < 0.8 ? Indeterminate: 0.8 - 0.9 ?Positive: ? > 0.9 ??In order to reduce the incidence of a false positive ??result, the CDC recommends that all s/co ratios ??between 1.0 and 10.9 be confirmed by a more specific ??supplemental or PCR testing. [facility] offers HCV Ab ??w/Reflex to Verification test #[id number]. Blood specimen (specimen) BLOOD SPECIMEN / Unknown 11/25/2014 1:25 PM CDT 11/25/2014 6:04 PM CDT Narrative [facility] MELODY CHAIREZ) - 11/26/2014 7:19 AM CDT Performed at: ??01 - [address] ??[id number] Hearing Healthcare Practitioner: Yovani Davis PhD, Phone: ??[phone] Mary Jo Dukes MD LAB - CHEMISTR Y ORDERABLES [facility] ([place]) * (ABNORMAL) COMPLEMENT C3 (11/25/2014 1:25 PM CDT) Complement C3 183(H) 90 - 180 mg/dL Adult [facility] ([place]EN) Blood specimen (specimen) BLOOD SPECIMEN / Unknown 11/25/2014 1:25 PM CDT 11/25/2014 6:04 PM CDT Narrative [facility] ([place]EN) - 11/26/2014 7:19 AM CDT Performed at: ??01 - [address] ??[id number] Hearing Healthcare Practitioner: Yovani Davis PhD, Phone: ??[phone] Mary Jo Luis Dukes MD LAB - CHEMISTR Y ORDERABLES Performing Organization Address City/[facility]/ZIP Co de Phone Number [facility] ([place]EN) Care Teams Sky Cap Relationship Specialty Start Date End Date Janet You, PATraceeC [address] [place] [address] PCP - General 07/11/22
--- OUTSIDE RECORDS SUMMARY | 2024-08-17 19:25 | XMS_ITS | Clinical Summary ---
Author Organization [facility] Address [address] [place] [address] [place] [address] Care Team Providers Care Industrial Gas Service Helper Name Role Phone Anupama Cuba MD Primary Care Provider [phone] Nemesio Antony MD Unavailable Allergies Active Allergy Reactions Criticality Noted Date Comments Methotrexate Contact Dermatitis,Rash Medium 03/13/2022 Tape Other (see comment) Low 04/12/2021 bandaids-takes skin off Medications levothyroxine (SYNTHROID) 200 MCG tabletIndication s:Hypothyroidism Take 1 tablet (200 mcg total) by mouth every morning. Indications: Underactive Thyroid Active carvedilol (COREG) 12.5 MG tabletIndication s:Hypertension Take 1 tablet (12.5 mg total) by mouth 2 (two) times daily. Indications: High Blood Pressure Active methadone 10 MG tabletIndication s:Medication-Ass isted Treatment (MAT),PATIENT REPORTED THIS DOSE DAILY FROM MOBILE METHADONE [facility] Take 8 tablets (80 mg total) by mouth daily. Indications: Medication-Assist ed Treatment (MAT), PATIENT REPORTED THIS DOSE DAILY FROM MOBILE METHADONE [facility] Active aspirin 81 MG tabletIndication s:Anticoagulant Therapy,hasn't been taking it recently Take 1 tablet (81 mg total) by mouth. Indications: Anticoagulant Therapy, hasn't been taking it recently Active duloxetine 30 MG capsuleIndicatio ns:Anxiety,Depre ssion Take 1 capsule (30 mg total) by mouth nightly at bedtime. Indications: Depression, Feeling Anxious Active cloNIDine 0.2 MG tabletIndication s:Hypertension Take 1 tablet (0.2 mg total) by mouth 2 (two) times daily. Indications: High Blood Pressure 12/16/19 Active VENTOLIN HFA 108 (90 Base) MCG/ACT inhaler Inhale 2 puffs into the lungs every 4 (four) hours as needed for Wheezing. 09/11/19 Active cyclobenzaprine 10 MG tablet Take 1 tablet (10 mg total) by mouth nightly as needed for Muscle Spasms. 07/11/20 Active mirabegron ER (MYRBETRIQ) 50 MG 24 hr tabletIndication s:Urinary Incontinence Take 1 tablet (50 mg total) by mouth daily. Indications: Urinary Incontinence 08/07/19 Active pilocarpine 5 MG tabletIndication s:dry mouth Take 1 tablet (5 mg total) by mouth 3 (three) times daily as needed. Indications: dry mouth 08/12/19 Active omeprazole 20 MG capsuleIndicatio ns:Reflux Esophagitis Take 1 capsule (20 mg total) by mouth daily. Indications: Lower Esophagus Inflammation From Backflow of Stomach Acid 12/29/19 Active nitroglycerin 0.[address] 1 tablet (0.4 mg total) under the tongue every 5 (five) minutes as needed for Chest Pain. Active DULoxetine 60 MG capsuleIndicatio ns:Anxiety,Depre ssion Take 1 capsule (60 mg total) by mouth daily. Indications: Depression, Feeling Anxious 01/27/20 Active probiotic capsuleIndicatio ns:Nutritional Support Take 1 capsule by mouth daily with breakfast. Indications: Nutritional Support Active clobetasol 0.05 % external solutionIndicati ons:Psoriasis Apply topically 2 (two) times daily. Indications: Psoriasis 04/18/20 Active hydrOXYzine 25 MG tablet Take 1 tablet (25 mg total) by mouth 4 (four) times daily as needed for Itching or Anxiety. 04/18/20 Active calcipotriene 0.005 % ointmentIndicati ons:Psoriasis Apply topically as needed. Indications: Psoriasis 05/02/20 Active HUMIRA PEN-PSOR/UVEIT STARTER 80 MG/0.8ML & 40MG/0.4ML pen-injector kitIndications:P soriasis Inject into the skin every 14 (fourteen) days. Indications: Psoriasis 12/28/19 Active furosemide (LASIX) 20 MG tabletIndication s:Edema, unspecified type Take 1 tablet (20 mg total) by mouth daily. 30 tablet 11 05/06/20 22 Active Additional Information Patient taking differently: 40 mgOral Daily, Reported on 12/05/2023 amiodarone (PACERONE) 200 MG tablet Take 1 tablet (200 mg total) by mouth daily. Active cetirizine (ZYRTEC) 10 MG tablet Take 1 tablet (10 mg total) by mouth daily. Active atorvastatin (LIPITOR) 40 MG tablet Take 1 tablet (40 mg total) by mouth nightly at bedtime. Active lisinopril (PRINIVIL) 10 MG tablet Take 1 tablet (10 mg total) by mouth daily. Active vitamin D2, ergocalciferol, (DRISDOL) 1.25 mg capsule Take 1 capsule (1.25 mg total) by mouth every 7 days. Active COMPRESSION STOCKINGS, DME,Indications: Lower Leg Pain,Varicose Veins,post varithena Indications: Lower Leg Pain, Varicose Veins, post varithena Thigh high compression stockings, 20-30 mmHg, will be put on leg during procedure. Will need to keep on until follow up appointment 5-7 days post procedure. Then follow post procedure directions. 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 Psoriasis 09/20/2014 Myalgia and myositis 09/20/2014 Chronic hepatitis C virus infection (CMS/HCC [facility] /HCC) 09/20/2014 Overview (02/13/2021): Hepatitis B core antibody non reactive no immunity to hepatitis B Genotype 1a or 1b fibroscan Date of Exam: 11/08/2020 (LSM, kPa 11.1 CAP 258 Chronic low back pain 09/20/2014 Varicose veins of bilateral lower extremities with other complications Family History Medical History Relation Comments heroin OD Brother Anxiety Father Autoimmune Disease Father COPD Father Cancer Father Coronary artery disease Father Heart Disease Father Hyperlipidemia Father Hypertension Father Osteoporosis Father Prostate Cancer Father diverticulitis Father Hyperlipidemia Mother Hypertension Mother hypothyroid Mother varicose veins Mother Stroke Other hepatitis Other Relation Status Comments Brother Father Maternal Grandfather Maternal Grandmother Mother Alive Other Paternal Grandfather Paternal Grandmother Social History Tobacco Use Types Packs/Day Years Used Date Smoking Tobacco: Former Cigarettes 0.5 35 0 10/1986 - 10/2021 Passive Smoke Exposure: Never Smokeless Tobacco: Never Tobacco Cessation:Counseling Given: Not Answered Alcohol Use Standard Drinks/Week Comments No 0 (1 standard drink = 0.6 oz pur e alcohol) quit years ago AUDIT-C Answer Date Recorded Frequency of Alcohol Consumption Never 12/09/2018 Average Number of Drinks Not on file 019 Frequency of Binge Drinking Not on file 11/13 Comments No Sex and Gender Information Value Date Recorded Sex Assigned at Not on file Legal Sex Female 9:52 PM [employer]AL[employer] Gender Identity Not on file Sexual Orientation Not on file Occupation Industry Job Start Date Job End Date Not on file Not on file Not on file Not on file Last Filed Vital Signs Vital Sign Reading Time Taken Comments Blood Pressure 138/84 03/30/2024 2:53 PM CDT Pulse 76 03/30/2024 2:53 PM CDT Temperature 36.4 ??C (97.5 ??F) 05/03/2022 12:40 PM C DT Respiratory Rate 16 03/30/2024 2:53 PM CDT Oxygen Saturation 94% 03/30/2024 2:53 PM CDT Inhaled Oxygen Concentration - - Weight 101.6 kg (224 lb) 03/30/2024 2:53 PM CDT Height 162.6 cm (5' 4 ) 03/30/2024 2:53 PM CDT Body Mass Index 38.45 03/30/2024 2:53 PM CDT Plan of Treatment Health Maintenance Due Date Last Done Comments Cervical Cancer Screening Pap Smear (Age 30 to 64) Every 3 Years 1965 Annual Physical 1968 Pneumococcal Vaccine: Pediatrics (0 to 5 Years) and At-Risk Patients (6 to 64 Years) (1 of 2 - PCV) 1971 PHQ-2 (Physician Afognak) 1977 DTaP, Tdap and Td Vaccines (1 - Tdap) 1984 Cervical Cancer Screening Pap with HPV Testing (Age 30 to 64) Every 5 Years 1995 Cervical Cancer Screening with HPV 1995 Zoster Vaccines (1 of 2) 2015 Colorectal Cancer Screening FIT-DNA (3 Years) 10/25/2023 10/24/2020 Mammogram Screening 02/09/2024 02/08/2022 COVID-19 Vaccine ( season) 2024 10/28/2020, 10/07/2020 Influenza Adult (#1) 2024 04/10/2019, 05/17/20 17 PHQ-2 (Physician Afognak) 07/15/2024 Colorectal Cancer Screening Colonoscopy (10 Years) Discontinued 01/06/2019 Hepatitis C Completed 02/07/2021, 11/13, 10/11/2020, Additional history exists Meningococcal B Vaccine Aged Out No l onger eligible based on patient's age to complete this topic Meningococcal Vaccine Aged Out No brittany allison eligible based on patient's age to complete this topic RSV Immunizations Under 20 Months Aged Out No longer eligible based on patient's age to complete this topic Procedures Procedure Name Priority Date/Time Associated Diagnosis Comments MG SCREENING W RENEE MAT DIGI Routine 02/08/2022 1:18 PM CDT Encounter for screening mammogram for malignant neoplasm of breast COLOGUARD (EXACT SCIENCE) Routine 10/24/2020 7:30 AM CDT Screen for colon cancer COLONOSCOPY/EGD GENERIC (SCAN ORDER) Routine 01/06/2019 from Last 3 Months or Most Recently Relevant to Health Maintenance Results * MG SCREENING W RENEE MAT DIGI (02/08/2022 1:18 PM CDT) Anatomical Region Laterality Modality Breast Bilateral Mammography 02/19/2022 11:2 3 AM CDT Impressions 02/19/2022 11:30 AM CDT IMPRESSION: No mammographic findings suggestive of malignancy. Recommendation: 1: Routine screening mammogram ??bilateral ??in 1 year Assessment: ACR BI-RADS Category 2 - Benign. Ordered By: JANET TYLER Interpreted By: Deng Grant MD, 02/19/2022 11:23 AM Narrative 02/19/2022 11:30 AM CDT Examination: Screening bilateral mammogram Clinical history: Asymptomatic screening study Comparison: Mammograms 06/14/2017, 04/12/2015, 01/28/2008 Technique: Digital screening mammography of both breasts was performed. Breast tomosynthesis acquisitions were obtained bilaterally. This study was read with the assistance of a computer-aided detection system. Tissue density: There are scattered areas of fibroglandular density. Findings: No suspicious masses, malignant appearing calcifications, skin thickening or other abnormalities are present. ??No significant change from the prior exam. us Janet Tyler PA-C MAMMO Final Resul t * COLOGUARD (AisleFinder) (10/24/2020 7:30 AM CDT) COLOGUARD RESULT Negative Not Applicable [employer] (CLIA #:[id number]) Comment: A negative result indicates a low likelihood that a colorectal cancer (CRC) or an advanced adenoma (adenomatous polyps with more advanced pre-malignant features) is present. The chance that a person with a negative Cologuard test has a colorectal cancer is less than 1 in 1500 (negative predictive value >99.9%) or has an advanced adenoma is less than 5.3% (negative predictive value 94.7%). These data are based on a prospective cross-sectional screening study of 10,000 individuals at average risk for colorectal cancer who were screened with both Cologuard and colonoscopy. (Dwayne Brooks al, N Engl J Med 2014;370(14):5777-8600) The normal value (reference range) for this assay is negative. COLOGUARD RE-SCREENING RECOMMENDATION: Periodic routine colorectal cancer screening is an important part of preventive healthcare for asymptomatic persons at average risk for colorectal cancer. Following a negative Cologuard result, the [place] [employer] Society and U.S. Multi-Society Task Force screening guidelines recommend a Cologuard re-screening interval of 3 years. References: [place] [employer] (ACS). Colorectal cancer prevention and early detection. [place], [place]: [place] [employer]; [updated 2015Nov 05]. https://www.cancer.org/cancer/awrnl-vfdbky-likoyw/pmmweuybv-ohbwmydax-wiweohp/ac s-rec ommendations.html. Accessed March 14, 2018; Thomas DK, Sebastian MCCALL, Noah ZuluagaK, Colorectal Cancer Screening: Recommendations for Physicians and Patients from the U.S. Multi-Society Task Force on Colorectal Cancer Screening, Am J Gastroenterology 2017; 112:1089-3899. TEST TYPE: Composite algorithmic analysis of stool DNA-biomarkers with hemoglobin immunoassay. ??Quantitative values of individual biomarkers are not reportable and are not associated with individual biomarker result reference ranges. PRECAUTIONS AND LIMITATIONS: Cologuard is intended for colorectal cancer screening of adults of either sex, 45 years or older, who are at average-risk for colorectal cancer (CRC). Cologuard has been approved for use by the U.S. FDA. Cologuard may produce a false negative or false positive result. A negative Cologuard test result does not guarantee the absence of CRC or advanced adenoma (pre-cancer). Patients with a negative Cologuard test result should be advised to continue participating in a colorectal cancer screening program. The screening interval for Cologuard is currently recommended at an interval of every 3 years by the [place] [employer] Society and U.S. Multi-Society Task Force. A false positive result occurs when Cologuard produces a positive result, even though a colonoscopy may not find colorectal cancer or precancerous polyps. The performance of Cologuard has been established in a cross sectional study (i.e., single point in time) of average-risk adults aged 50-84. Cologuard performance in patients ages 45 to 49 years was estimated by sub-group analysis of near-age groups. Cologuard performance data in a 10,000 patient pivotal study using colonoscopy as the reference method can be accessed at the following location: www.[employer].JournalDoc/results. Additional description of the Cologuard test process, warnings and precautions can be found at www.cologuardtest.com. Rx only. Stool specimen (specimen) STOOL SPECIMEN / Unknown 10/24/2020 7:30 AM CDT 10/25/2020 12:27 PM CDT us Marilyn Personjavier TERADATA DEVELOPER BODY FLUIDS AND STOOLS ORDERABLE S Final Result [facility] [facility] ([facility]) [address] [place] [address], [place] [facility] (CLIA #:[id number]) [address] [place] [address] * COLONOSCOPY/EGD (01/06/2019) us Documents Scanned SCANNING Edited Result - Final from Last 3 Months or Most Recently Relevant to Health Maintenance Insurance MEDICAID AETNA AETNA Advance Directives Documents on File Type Date Recorded Patient Public Relations Supervisor Expl anation Advance Directives and Living Will 12/08/2019 12:00 AM ADVANCED DIRECTIVES Advance Directives and Living Will 01/06/2019 12:00 AM ADVANCED DIRECTIVES Care Teams Industrial Gas Service Helper Relationship Specialty Start Date End Date Anupama Cuba MD [address] [place] [address] PCP - General FAMILY PRACTICE 08/26/20 Nemesio Antony MD [address] [place] [address] Consulting Physician INTERNAL MEDICINE 01/05/22
--- OUTSIDE RECORDS SUMMARY | 2024-08-17 19:25 | XMS_ITS | Referral Summary ---
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 CHLOR) 1 mg/mL (1 mL) syringe Activ e albuterol HFA (PROVENTIL HFA,VENTOLIN HFA,PROAIR HFA) 90 mcg/actuation inhaler INHALE 1 TO 2 PUFFS PO Q 4 HOURS PRN FOR SOB 0 04/03/20 19 Active aspirin 81 mg enteric coated tablet aspirin 81 mg tablet,delayed release Active atorvastatin (LIPITOR) 40 mg tablet atorvastatin 40 mg tablet Active carvedilol (COREG) 12.5 mg tablet carvedilol 12.5 mg tablet Active clobetasol (TEMOVATE) 0.05 % cream clobetasol 0.05 % topical cream Active cloNIDine (CATAPRES) 0.2 mg tablet 03/30/[address] (CYMBALTA) 30 mg capsule 03/30/[address] (CYMBALTA) 60 mg capsule 03/30/20 Active lisinopril (PRINIVIL,ZEST RIL) 5 mg tablet lisinopril 5 mg tablet Active levothyroxine (SYNTHROID) 150 mcg tablet 03/30/20 Active nitroglycerin (NITROSTAT) 0.4 mg SL tablet Nitrostat 0.4 mg sublingual tablet Active fluticasone furoate-vilant Aron (BREO ELLIPTA) 100-25 mcg/dose diskus inhaler Breo Ellipta 100 mcg-25 mcg/dose powder for inhalation Active furosemide (LASIX) 20 mg tablet Take 1 tablet (20 mg total) by mouth daily Active hydrOXYzine (ATARAX) 25 mg tablet TAKE 1 TABLET BY MOUTH FOUR TIMES A DAY NEEDED 07/10/20 Active levETIRAcetam (KEPPRA) 500 mg tablet Take 1 tablet (500 mg total) by mouth 2 (two) times a day 07/10/20 22 Active Myrbetriq 50 mg tablet extended release 24 hr Take 1 tablet (50 mg total) by mouth daily 04/18/20 22 Active adalimumab ([place],CF, Pen Ksap-Rx-Jilk HS) 80 mg/0.8 mL-40 mg/0.4 mL pen injector kit Inject 40 mg under the skin every 2 (two) weeks 12/28/19 22 Active omeprazole (PriLOSEC) 20 mg capsule Take 1 capsule (20 mg total) by mouth 04/17/20 23 Active naloxone (NARCAN) 4 mg/actuation spray,non-aero andry Administer 1 spray into affected nostril(s) as needed for opioid reversal or respiratory depression Call 911. Administer a single spray in one nostril. Repeat every 3 minutes as needed if no or minimal response. 1 each 05/22/20 23 Active LORazepam (Ativan) 2 mg tablet Take one tablet one hour before MRI. May repeat once if not sedated in one hour. Do not drive with Ativan 1 tablet 05/22/20 23 Active pyridoxine (VITAMIN B6) 25 mg tabletIndicati ons:Memory loss Take 0.5 tablets (12.5 mg total) by mouth daily 15 tablet 01/02/20 025 Active cyanocobalamin (Vitamin B-12) 1,000 mcg tabletIndicati ons:Prevention of Vitamin B12 Deficiency Take 0.5 tablets (500 mcg total) by mouth daily 15 tablet 01/02/20 025 Active folic acid (FOLVITE) 400 mcg tabletIndicati ons:Memory loss Take 1 tablet (0.4 mg total) by mouth daily 30 tablet 01/02/20 025 Active Active Problems Problem Noted Date Diagnosed Date Primary hypertension 06/24/2024 Mixed hyperlipidemia 06/24/2024 Memory loss 04/23/2023 History of ventricular tachycardia 09/07/2022 Coronary artery disease invo lving shoshone[place]paiute coronary artery of shoshone[place]paiute heart without angina pectoris 09/07/2022 History of cardiac arrest 09/07/2022 Social History Tobacco Use Types Packs/Day Years Used Date Smoking Tobacco: Former Cigarettes Q uit: 01/22/2022 E-cigarettes Smokeless Tobacco: Never Tobacco Cessation:Counseling Given: Not Answered AUDIT-C Answer Date Recorded Q1: How often do you have a drink containing alcohol? Never 07/26/2022 Q2: How many drinks containi ng alcohol do you have on a typical day when you are drinking? Patient does not drink Q3: How often do you have si x or more drinks on one occasion? Never 07/26/2022 Personal Safety Answer Date Recorded Have you ever been in or are you currently in a harmful physical or emotional relationship or is someone making you feel afraid or unsafe? Denies 11/01/2023 Comments Unknown Sex and Gender Information Value Date Recorded Sex Assigned at Not on file Legal Sex Female 7:28 PM INSURANCE AGENCY SALES MANAGER Gender Identity Not on file Sexual Orientation Not on file Last Filed Vital Signs Vital Sign Reading Time Taken Comments Blood Pressure 146/82 06/24/2024 8:01 AM INSURANCE AGENCY SALES MANAGER Pulse 61 06/24/2024 8:01 AM INSURANCE AGENCY SALES MANAGER Temperature 36.9 ??C (98.4 ??F) 11/01/2023 7:40 AM CD T Respiratory Rate 16 11/01/2023 9:28 AM CDT Oxygen Saturation 99% 06/24/2024 8:01 AM INSURANCE AGENCY SALES MANAGER Inhaled Oxygen Concentration - - Weight 99.8 kg (220 lb) 06/24/2024 8:01 AM INSURANCE AGENCY SALES MANAGER Height 162.6 cm (5' 4 ) 06/24/2024 8:01 AM INSURANCE AGENCY SALES MANAGER Body Mass Index 37.76 06/24/2024 8:01 AM INSURANCE AGENCY SALES MANAGER Plan of Treatment Not on file Procedures Procedure Name Priority Date/Time Associated Diagnosis Comments POCT LIPID PANEL Routine 06/24/2024 8:02 AM INSURANCE AGENCY SALES MANAGER Coronary artery disease involving [place] coronary artery of shoshone[place]paiute heart without angina pectoris Mixed hyperlipidemia from Last 3 Months Results * POCT lipid panel (06/24/2024 8:02 AM INSURANCE AGENCY SALES MANAGER) Cholesterol, POC 162 mg/dL HDL, POC 61 mg/dL Triglycerides, POC 154 mg/dL LDL Cholesterol POC 71 mg/dL Chol/HDL Ratio, POC 1.2 Non-HDL Cholesterol, POC 101 mg/dL Cholesterol Total, POC 162 mg/dL Capillary blood 06/24/2024 8 :02 AM INSURANCE AGENCY SALES MANAGER us Ripa Radha Freeman MD POINT OF CARE TEST MCKAYArgelia WIGGINSLAMBERTO Final Result from Last 3 Months Insurance AETNA MEDICARE GOLD IDPA AETNA [facility]IC[facility]OLD [place] Advance Directives For more information, please contact: [phone] * Full Code (Latest Code Status on File) Date Activated Date Inactivated Comments 11/01/2023 8:52 AM 11/02/2023 4:37 AM * Full Code Date Activated Date Inactivated Comments 05/29/2023 10:01 AM 05/30/2023 4:39 AM Care Teams Traveling Construction Superintendent Relationship Specialty Start Date End Date Anupama Cuba MD [address] [place] [address] JENNIFFER RAMOS [address] PCP - General Family Medicine 09/27/22
--- OUTSIDE RECORDS SUMMARY | 2024-08-17 19:25 | XMS_ITS | Clinical Summary ---
Author Organization [facility] Medical Office Building [address] Address [address] [place] [address] Care Team Providers Care Automobile Appraiser Name Role Phone Anupama Cuba MD Primary Care Provider Allergies Active Allergy Reactions Criticality Noted Date [...] Active cloNIDine (CATAPRES) 0.2 mg tablet 03/30/[address] (CYMBALTA) 30 mg capsule 03/30/[address] (CYMBALTA) 60 mg capsule 03/30/20 19 Active lisinopril (PRINIVIL,ZEST RIL) 5 mg tablet lisinopril 5 mg tablet Active levothyroxine (SYNTHROID) 150 mcg tablet 03/30/20 19 Active nitroglycerin (NITROSTAT) 0.4 mg SL tablet Nitrostat 0.4 mg sublingual tablet Active fluticasone furoate-vilant Aron (BREO ELLIPTA) 100-25 mcg/dose diskus inhaler Breo Ellipta 100 mcg-25 mcg/dose powder for inhalation Active furosemide (LASIX) 20 mg tablet Take 1 tablet (20 mg total) by mouth daily Active hydrOXYzine (ATARAX) 25 mg tablet TAKE 1 TABLET BY MOUTH FOUR TIMES A DAY NEEDED 07/10/20 22 Active levETIRAcetam (KEPPRA) 500 mg tablet Take 1 tablet (500 mg total) by mouth 2 (two) times a day 07/10/20 22 Active Myrbetriq 50 mg tablet extended release 24 hr Take 1 tablet (50 mg total) by mouth daily 04/18/20 22 Active adalimumab (Humira,CF, Pen Wbjn-Jc-Ekmg HS) 80 mg/0.8 mL-40 mg/0.4 mL pen [...] total) by mouth daily 15 tablet 01/02/20 24 025 Active cyanocobalamin (Vitamin B-12) 1,000 mcg [...] tachycardia 09/07/2022 Coronary artery disease invo lving [place] coronary artery of [place] heart without angina pectoris 09/07/2022 History of cardiac arrest 09/07/2022 Encounters Date Type Department Care Team Description 06/24/2024 8:00 AM POOL SERVICER Office Visit [facility] [address] [facility] [address] [place] [address] Indira Freeman MD Coronary artery disease involving [place] coronary artery of [place] heart without angina pectoris (Primary Dx); History of cardiac arrest; Primary hypertension; Mixed hyperlipidemia from Last 3 Months Surgical History Surgery Date Site/Laterality Comments APPENDECTOMY FL FLUORO GUIDED LUMBAR PUNCTURE 05/29/2023 Right FL FLUORO GUIDED LUMBAR PUNCTURE 11/01/2023 Right Medical History Medical History Date Comments Hypertension Poor circulation Hypercholesteremia Diabetes mellitus (HCC) Asthma Thyroid disease Peptic ulceration Gastric reflux Kidney stone Arthritis Osteoporosis Cirrhosis (HCC) Infectious viral hepatitis c Osteoarthritis Depression Migraines Family History Medical History Relation Name Comments Arthritis Father Heart disease Father Heart disease Mother Hypertension Mother Relation Name Status Comments Father Mother Social History Tobacco Use Types Packs/Day Years [...] on file Legal Sex Female 7:28 PM POOL SERVICER Gender Identity Not on file Sexual Orientation Not on file Obstetrics History Last Filed Vital Signs Vital Sign Reading Time Taken Comments Blood Pressure 146/82 06/24/2024 8:01 AM POOL SERVICER Pulse 61 06/24/2024 8:01 AM POOL SERVICER Temperature 36.9 ??C (98.4 ??F) 11/01/2023 7:40 AM CD T Respiratory Rate 16 11/01/2023 9:28 AM CDT Oxygen Saturation 99% 06/24/2024 8:01 AM POOL SERVICER Inhaled Oxygen Concentration - - Weight 99.8 kg (220 lb) 06/24/2024 8:01 AM POOL SERVICER Height 162.6 cm (5' 4 ) 06/24/2024 8:01 AM POOL SERVICER Body Mass Index 37.76 06/24/2024 8:01 AM POOL SERVICER Plan of Treatment Health Maintenance Due Date Last Done Comments Cervical Cancer Screening 1965 Colon Cancer Screening-Colonoscopy 1965 Depression Screening 1965 DTaP/Tdap/Td Vaccine (1 - Tdap) 1976 Regular Well Visit/Exam 18-64 1983 Zoster Vaccine (1 of 2) 2015 Breast Cancer Screening-Mammogram 02/08/2023 02/08/2022, 02/08/2022, 06/14/2017 Covid-19 Vaccine (3 - 2023-2 5 season) 2024 10/28/2020, 10/07/2020 Influenza Vaccine (#1) 2024 9, 05/17/2017, 10/08/2014 Hepatitis C Screening Completed 05/12/2019 , 04/30/2019 Pneumococcal vaccine <65 Aged Out No longer eligible based on patient's age to complete this topic Procedures Procedure Name Priority Date/Time Associated Diagnosis Comments POCT LIPID PANEL Routine 06/24/2024 8:02 AM POOL SERVICER Coronary artery disease involving [place] coronary artery of [place] heart without angina pectoris Mixed hyperlipidemia from Last 3 Months Results * POCT lipid panel (06/24/2024 8:02 AM POOL SERVICER) Cholesterol, POC 162 mg/dL HDL, POC 61 mg/dL Triglycerides, POC 154 mg/dL LDL Cholesterol POC 71 mg/dL Chol/HDL Ratio, POC 1.2 Non-HDL Cholesterol, POC 101 mg/dL Cholesterol Total, POC 162 mg/dL Capillary blood 06/24/2024 8 :02 AM POOL SERVICER [facility] Radha Freeman MD POINT OF CARE TEST LEIDY NELSON Final Result from Last 3 Months Insurance TNA MEDICARE [facility] AETNA MEDICARE GOLD [employer] AETNA [facility] ADVANTRA Advance Directives For more information, please contact: [phone] * Full Code (Latest Code Status on File) Date Activated Date Inactivated Comments 11/01/2023 8:52 AM 11/02/2023 4:37 AM * Full Code Date Activated Date Inactivated Comments 05/29/2023 10:01 AM 05/30/2023 4:39 AM Care Teams Automobile Appraiser Relationship Specialty Start Date End Date Anupama Cuba MD [address] [place] [address] PCP - General Family Medicine 09/27/22
--- OUTSIDE RECORDS SUMMARY | 2024-08-17 19:25 | XMS_ITS | Encounter Summary ---
Author Organization [facility] Address [address] [place], [place] [address] [address] Care Team Providers Care Field Professional Name Role Phone Enrique Gandhi MD Primary Care Provider [phone] Anupama Cuba DO Primary Care Provider [phone]- [phone] Janet You PA-C Primary Care Provider [phone] Reason for Visit * Reason Onset Date Comments MEDICATION REFILL 02/12/2018 Encounter Details Date Type Department Care Team (Late st Contact Info) Description 02/12/2018 Refill [facility] [address] [place] [address] Mary Jo Dukes MD [address] [place] [id number] MEDICATION REFILL Social History Tobacco Use Types [...] on filedocumented in this encounter Care Teams Field Professional Relationship Specialty Start Date End Date Enrique Gandhi MD [address] [facility] [address] [place] [address] PCP - General Family Medicine 06/20/16 11/02/20 Anupama Cuba DO [address] [facility] [address] [place] [address] PCP - General 11/03/20 07/10/22 Janet You PATraceeC [address] [place] [address] PCP - General 07/11/22 documented as of this encounter
--- OUTSIDE RECORDS SUMMARY | 2024-08-17 19:25 | XMS_ITS | Referral Summary ---
Author Organization [facility] Address [address] [place] [address] Care Team Providers Care Table Filler Name Role Phone Janet You PA-C Primary Care Provider [phone] Source Comments [facility],non-owned Affiliates and Associated Physician Practices is amultiple site organization consisting of ambulatory clinics and hospital sitesin [place], [place], [place] and [place]. This disclosure is being madepursuant to the Care Everywhere program and may not contain all information available regarding this patient. Last updated 18.[facility] Allergies No known active allergies Medications * Be aware that medications may not be up to date on this document. Alwaysverify current medications with the patient. Medication Sig Dispensed Refills Start Date End Date Status aspirin EC (ECOTRIN) 81 MG tablet aspirin 81 mg tablet,delayed release Activ e atorvastatin (LIPITOR) 40 MG tablet 08/25/2020 Active carvedilol (COREG) 12.5 MG tablet carvedilol 12.5 mg tablet Active cloNIDine (CATAPRES) 0.2 MG tablet clonidine HCl 0.2 mg tablet Active cyclobenzaprine (FLEXERIL) 10 MG tablet TAKE 1 TABLET BY MOUTH DAILY AT BEDTIME NEEDED 07/11/2020 Active DULoxetine (CYMBALTA) 60 MG capsule duloxetine 60 mg capsule,delayed release Active DULoxetine (CYMBALTA) 30 MG capsule 08/25/2020 Active albuterol HFA (PROVENTIL;VENTOLI N;PROAIR) 108 (90 Base) MCG/ACT inhaler Inhale 2 puffs by mouth every 4 hours as needed 07/11/2020 Active levothyroxine (SYNTHROID) 150 MCG tablet Take 150 mcg by mouth once daily Active lisinopril (PRINIVIL;ZESTRIL) 5 MG tablet 10 mg 08/25/2020 Active meloxicam (MOBIC) 15 MG tablet meloxicam 15 mg tablet Active methadone (DOLOPHINE) 10 MG tablet Take 200 mg by mouth once daily Active mirabegron ER 24hr (MYRBETRIQ) 25 MG tablet Myrbetriq 25 mg tablet,extended release TAKE 1 TABLET BY MOUTH EVERY DAY 08/07/2020 Active mometasone (ELOCON) 0.1 % solution (lotion) APPLY THIN LAYER TOPICALLY TO THE AFFECTED AREA TWICE DAILY 08/03/2020 Active nitroGLYCERIN (NITROSTAT) 0.4 MG tablet Nitrostat 0.4 mg sublingual tablet Active omeprazole (PRILOSEC) 20 MG capsule omeprazole 20 mg capsule,delayed release Active pilocarpine hcl, oral, (SALAGEN) 5 MG tablet Take 5 mg by mouth as needed 08/12/2020 Active spironolactone (ALDACTONE) 25 MG tablet spironolactone 25 mg tablet Active zolpidem (AMBIEN) 5 MG tablet as needed 09/17/2019 Active budesonide (PULMICORT) 0.25 MG/2ML nebulizer suspension Inhale 0.25 mg by mouth 2 times daily Active furosemide (LASIX) 20 MG tablet Take 20 mg by mouth once daily Active clobetasol (TEMOVATE) 0.05 % solution 2 times daily 04/18/2021 Active calcipotriene (DOVONEX) 0.005 % ointment 05/02/2021 Active Active Problems Problem Noted Date Diagnosed Date Obstructive sleep apnea (adult) (pediatric) 03/16 Smoking 01/28/2021 Disorder of toe 10/11/2020 Chronic venous insufficiency 09/27/2020 Ingrown left greater toenail 09/25/2017 Pain of left great toe 09/25/2017 Anti-TRACTOR TRAILER TRUCK DRIVER antibodies present 11/30/2014 Myalgia and myositis 09/20/2014 Chronic hepatitis C virus infection 09/20/2014 Overview (11/08/2020): Hepatitis B core antibody non reactive no immunity to hepatitis B Genotype 1a or 1b fibroscan Date of Exam: 11/08/2020 (LSM, kPa 11.1 CAP 258 Chronic low back pain 09/20/2014 Fatigue 09/20/2014 [...] Weight 107.8 kg (237 lb 9.6 oz) 10:31 AM CDT Height 162.6 cm (5' 4 ) 05/05/2021 10:3 1 AM CDT Body Mass Index 40.78 05/05/2021 10:31 AM CDT Plan of Treatment Not on file Goals Goal Patient Goal Type Associated Problems Recent Progress Patient-Stated? Author Medication Management General On track( 10:31 AM CDT) Felicita Hermosillo, RN Note: Expected end date: ongoing Interventions: Take all medications as prescribed Procedures Procedure Name Priority Date/Time Associated Diagnosis Comments COMPREHENSIVE METABOLIC PANEL Routine 05/09/2021 8:47 AM CDT Chronic hepatitis C without hepatic coma (HCC) HEPATITIS C RNA QUANTITATIVE 05/02/2021 8:49 AM CDT from Last 3 Months or Most Recently Relevant to Health Maintenance Results * (ABNORMAL) COMPREHENSIVE METABOLIC PANEL (05/09/2021 8:47 AM CDT) Glucose 94 65 - 99 mg/dL [facility] Comment: ? Fasting reference interval BUN 11 7 - 25 mg/dL [facility] Creatinine 1.08(H) 0.50 - 1.05 mg/dL [facility] Comment: For patients >49 years of age, the reference limit for Creatinine is approximately 13% higher for people identified as -[place]aced[place]. eGFR by MDRD 57(L) > OR = [...] 29 U/L [facility] Comment: Test Performed at: [facility] ??[phone] TORSTEN BROWN DO,MPH Blood BLOOD SPECIMEN / Unknown 05/09/2021 8:47 AM CDT 05/09/2021 8:48 AM CDT Regina Deluca RESORT KEEPER-T[employer]SILE TE[employer] [facility] - CHEMIS TRY ORDERABLES Performing Organization Address [facility] Co de Phone Number [facility] [address] [place] [address] * HEPATITIS C RNA QUANTITATIVE (05/02/2021 8:49 AM CDT) Hepatitis C Virus RNA, Quantitative Real Time PCR <15 NOT DETECTED NOT DETECTED IU/mL MALIK Hepatitis C Virus RNA, Quantitative Real Time PCR <1.18 NOT DETECTED NOT DETECTED Log IU/mL [facility] Comment: This test was performed using Real-Time Polymerase Chain Reaction. Reportable Range: 15 IU/mL to 100,000,000 IU/mL (1.18 Log IU/mL to 8.00 Log IU/mL). ?? The analytical performance characteristics of this assay have been determined by [employer]. The modifications have not been cleared or approved by the FDA. This assay has been validated pursuant to the CLIA regulations and is used for clinical purposes. ?? For more information on this test, go to: http://education.[employer]/faq/PGI56o5 (This link is being provided for informational/ educational purposes only.) REPORT COMMENT: CC DR Lynnette LE Test Performed at: [facility] ??[phone] TORSTEN BROWN DO,MPH 05/02/2021 8:49 AM CDT 05/02/2021 8:49 AM CDT Regina Deluca APRN-TENSILE TESTER LAB - CHEMIS TRY ORDERABLES Performing Organization Address [facility] Co de Phone Number [facility] [address] [place] [address] from Last 3 Months or Most Recently Relevant to Health Maintenance Care Teams Table Filler Relationship Specialty Start Date End Date Janet You, PA-C [address] [place] [address] PCP - General 07/11/22
--- OUTSIDE RECORDS SUMMARY | 2024-08-17 19:25 | XMS_ITS | Data Portability ---
Author Organization [facility] Edmund Mendoza Address [address] [place] [address] Care Team Providers Care Director Of Group Counseling Program Name Role Phone LIZA LEAL Primary Care Provider [phone] JEN BROWER OTHER Assessment No assessment recorded. Plan of Treatment Reminders Order Date Submit Date Provider Last Modified By Organization Details Last Modified Time Details Appointments None recorded. Lab None recorded. Referral urogynecol ogist referral 2019 [place] Anaid Boggs, [address] [place] [address], [place], [address], 0 11:16:05 ENT referral 2019 [facility], 2 [facility], [facility] [address], [address], 0 12:32:51 Procedures None recorded. Surgeries None recorded. Imaging XR, lumbar spine 2019 [facility] (Admitting), [address] [place] [address], [address], 0 15:25:32 XR, cervical spine 2019 [facility] (Admitting), [address] [place] [address], [address], 0 15:25:32 XR, toe(s), 2 or more view 2019 [facility] (Admitting), [address], [place], [address], 0 11:20:31 XR, foot, 3 or more view 2019 [facility] (Admitting), [address], [place], [address], 0 11:20:31 Medication Orders oxybutynin chloride ER 10 mg tablet,ext ended release 24 hr 2019 [facility] [place], [address], 0 14:41:23 cyclobenza niko 10 mg tablet 2019 [facility], [address] [place], [address], 0 16:34:49 betamethas one valerate 0.1 % lotion 2019 [facility] [address], [address] [place], [address], 0 16:03:20 betamethas one dipropiona te 0.05 % topical cream 2019 [facility] [address], [address] [place], [address], 0 16:33:16 AirDuo RespiClick 113 mcg-14 mcg/actuat ion breath activated 2019 020 [facility], [address] [place], [address], 0 16:28:15 ProAir HFA 90 mcg/actuat ion aerosol inhaler 2019 [facility], [address] [place], [address], 0 16:28:11 fluconazol e 150 mg tablet 2019 020 [facility]FACE [facility], [address] [place], [address], 0 14:34:22 Diflucan 200 mg tablet [address] [facility], [address] [place], [address], 0 10:43:38 pilocarpin e 5 mg tablet [address] [facility], [address] [place], [address], 0 15:27:35 Patient TargetsNo targets recorded. Patient Instructions Encounter Date Encounter Id Patient Instructions Last Modified By Organization Details Last Modified Time 09/11/2019 [id number] bladder training : care instructions jnanney Not available 09/11/2019 16:36:41 kegel exercises: care instructions jnanney Not available 09/11/2019 16:36:40 Stress Incontinence: Care Instructions jnanney Not available 09/11/2019 16:36:40 psoriasis: care instructions jnanney Not available 09/11/2019 16:33:06 11/12/2019 [id number] vaginal yeast infection: care instructions jnanney Not available 11/12/2019 14:34:20 candidiasis: car e instructions jnanney Not available 11/12/2019 14:34:20 12/31/2019 [id number] candidiasis: car e instructions jnanney Not available 12/31/2019 17:09:45 she will have pharmacy call us for refills.. jnanney Not available 12/31/2019 17:05:53 03/11/2020 [id number] candidiasis: car e instructions jnanney Not available 03/11/2020 15:29:16 Reason for Referral Urogynecologist Referral for Female stress incontinence Referring Physician: Liza Leal, Family Medicine, Encounter Date: 09/11/2019 ENT Referral for Candidiasis of mouth Referring Physician: [facility], Encounter Date: 03/11/2020 Results Created Date Observation Date Name Description Value Unit Range Abnormal Flag Note LastModifiedBy Organization Detail LastModifiedTime Result Notes None recorded. Problems Name Problem SNOMED Code Status Onset Date Resolution Date Notes Provider Name and Address Organization Details Recorded Time Low back pain 640086295 Active Harriet Daiglestevan FINA null, [place] - [facility] 6 15:26:30 Pain in toe 315806959 Active Harriet Villegas [place], [place] [facility] 6 15:26:30 Osteomyelit is 21447204 Active Harriet Daiglestevan FINA [place], [place] [facility] 6 15:26:30 Chronic hepatitis 00562156 Completed 09/26/2016 Bryon Smith PA-C Attn: Accountin g,[address] [place], [address], [place] - [facility] 7 11:28:49 Complaining of pelvic pain Active Harriet Daiglestevan [place], [place] [facility] 6 15:26:30 Hyperglycem ia 95123149 Active Harriet Daiglestevan FINA [place], [place] [facility] 6 15:26:30 Psoriasis 8122179 Active Liza Leal PA-C Attn: Accountin g,[address] [place], [address], [place] [facility] 6 15:59:19 Chronic depression 376065792 Active Liza Leal PA-C Attn: Accountin g,[address] [facility], [place], [address], [place] [facility] 6 15:59:19 Arthritis 3340113 Active Liza Leal PA-C Attn: Accountin g,[address] [place], [address], [place] [facility] 6 15:59:19 Dry eyes 399867389 Active Liza Leal PA-C Attn: Accountin g,[address] [facility], [place], [address], [facility] - SI 6 15:59:19 Ulcer of mouth 94475823 Active Harriet Villegas MA null, [place] - [facility] 6 15:26:30 History of appendectom y 730873384 Active 2016 Bryon Smith PA-C Attn: Accountin g,[address], [place], [address], [facility] - SI 7 11:28:38 Obesity 242167023 Active 2016 Bryon Smith PA-C Attn: Accountin g,[address], [place], [address], [facility] - SI 7 11:28:39 Chronic hepatitis C 776386548 Active 2016 Bryon Smith PA-C Attn: Accountin g,[address] [facility], [place], [address], [facility] - SI 7 11:28:42 Problem Notes None recorded. Procedures Surgical History Date Name Laterality Status Provider Name and Address Organization Details Recorded Time 11/07/19 14 Date of Last Pap Smear completed Lisa Brewer MA [facility] 02/10/2015 09:42:37 Appendectomy completed Nilda Carrington MA [facility] 06/04/2014 12:19:16 Tonsillectomy completed Nilda Carrington MA [facility] 06/04/2014 12:19:16 Imaging Results None recorded. Procedure Notes None recorded. Medical Equipment None Reported. Allergies No known drug allergies Medications Name Sig Start Date Stop Date Status Note LastModified by Organization Details LastModified Time ventolin hfa 108 mcg/act aers 01/06 completed Not Available Not Available Not Available nystatin 341806 unit/ml susp 01/06 completed Not Available Not Available Not Available lisinopril 5 mg tabs 01/06 completed Not Available Not Available Not Available levothyroxi ne sodium 150 mcg tabs 01/06 completed Not Available Not Available Not Available duloxetine hydrochlori de 30 mg cpep 01/06 completed Not Available Not Available Not Available betamethaso ne dipropionat e 0.05 % crea 01/06 completed Not Available Not Available Not Available omeprazole 20 mg cpdr 01/06 completed Not Available Not Available Not Available oxybutynin chloride er 5 mg tb24 01/06 completed Not Available Not Available Not Available carvedilol 12.5 mg tabs 01/06 completed Not Available Not Available Not Available zolpidem tartrate 5 mg tabs 01/06 completed Not Available Not Available Not Available cyclobenzap rine hydrochlori de 10 mg tabs 01/06 completed Not Available Not Available Not Available oxybutynin chloride er 10 mg tb24 01/06 completed Not Available Not Available Not Available meloxicam 15 mg tabs 01/06 completed Not Available Not Available Not Available atorvastati n calcium 40 mg tabs 01/06 completed Not Available Not Available Not Available duloxetine hydrochlori de 60 mg cpep 01/06 completed Not Available Not Available Not Available spironolact one 25 mg tabs 01/06 completed Not Available Not Available Not Available clonidine hydrochlori de 0.2 mg tabs 01/06 completed Not Available Not Available Not Available fluconazole 150 mg tabs 01/06 completed Not Available Not Available Not Available myrbetriq 25 mg tb24 01/06 completed Not Available Not Available Not Available fluconazole 200 mg tabs 01/06 completed Not Available Not Available Not Available cyclobenzap rine 10 mg tablet take one tablet by mouth once daily at bedtime as needed active Not Available Not Available No t Available atorvastati n 40 mg tablet TAKE 1 TABLET BY MOUTH EVERY NIGHT AT BEDTIME active Not Available Not Available No t Available doxepin 50 mg capsule 09/26 completed Not Available Not Available Not Available pilocarpine 5 mg tablet TAKE 1 TABLET BY MOUTH THREE TIMES A DAY 2019 active Not Available Not Available Not Avai lable nystatin 100,000 unit/mL oral suspension active Not Available Not Available N ot Available carvedilol 6.25 mg tablet 01/06 completed Not Available Not Available Not Available carvedilol 12.5 mg tablet TAKE 1 TABLET BY MOUTH TWICE A DAY active Not Available Not Available No t Available sulfasalazi ne 500 mg tablet Take one tablet po bid 04/29 completed Not Available Not Available Not Available clindamycin HCl 300 mg capsule 04/10 completed Not Available Not Available Not Available albuterol sulfate 2.5 mg/3 mL (0.083 %) solution for nebulizatio n Inhale 3 mL 4 times a day by nebulizat ion route as needed. 2018 active Not Available Not Available Not Avai lable oxybutynin chloride ER 10 mg tablet,exte nded release 24 hr TAKE 1 TABLET BY MOUTH EVERY DAY active Not Available Not Available No t Available azithromyci n 250 mg tablet 04/29 completed Not Available Not Available Not Available fluconazole 150 mg tablet Take 1 tablet every day by oral route for 7 days. 2019 active Not Available Not Available Not Avai lable Keflex 500 mg capsule Take 1 capsule every 8 hours by oral route for 10 days. 06/17 completed Not Available Not Available Not Available fluconazole 200 mg tablet TAKE 1 TABLET BY MOUTH EVERY DAY DIRECTED FOR 7 DAYS active Not Available Not Available No t Available meloxicam 15 mg tablet TAKE 1 TABLET BY MOUTH DAILY active Not Available Not Available No t Available Levaquin 750 mg tablet Take 1 tablet every day by oral route for 7 days. 2014 active Not Available Not Available Not Avai lable prednisone 20 mg tablet 01/06 completed Not Available Not Available Not Available clobetasol 0.05 % topical cream APPLY TOPICALLY TWICE DAILY NEEDED 03/20 completed Not Available Not Available Not Available phenytoin sodium extended 100 mg capsule 04/10 completed Not Available Not Available Not Available betamethaso ne valerate 0.1 % lotion APPLY THIN LAYER TOPICALLY TO THE AFFECTED AREA TWICE A DAY 01/06 completed Not Available Not Available Not Available phenytoin 50 mg chewable tablet CHEW 2 TABS BY MOUTH THREE TIMES A DAY 2019 active Not Available Not Available Not Avai lable sulfamethox azole 800 mg-trimetho prim 160 mg tablet Take 1 tablet twice a day by oral route for 10 days. 04/29 completed Not Available Not Available Not Available aspirin 81 mg tablet,annita yed release active Not Available Not Available Not Available tramadol 50 mg tablet active Not Available Not Available No t Available spironolact one 25 mg tablet TAKE 2 TABLETS BY MOUTH EVERY MORNING AND TAKE 2 TABLETS BY MOUTH EVERY EVENING active Not Available Not Available No t Available Depo-Medrol 80 mg/mL suspension for injection Take 1 mL by injection route. 09/26 completed Not Available Not Available Not Available terbinafine HCl 250 mg tablet Take 1 tablet every day by oral route for 84 days. active Not Available Not Available No t Available ceftriaxone 1 gram solution for injection Take 1 g as needed by injection route as directed for 1 day. 2014 active Not Available Not Available Not Avai lable clonidine HCl 0.2 mg tablet TAKE 1 TABLET BY MOUTH EVERY NIGHT AT BEDTIME active Not Available Not Available No t Available Nitrostat 0.4 mg sublingual tablet active Not Available Not Available Not Available betamethaso ne valerate 0.1 % topical cream 01/06 completed Not Available Not Available Not Available ranitidine 150 mg tablet TAKE 1 TABLET BY MOUTH TWICE A DAY 01/06 completed Not Available Not Available Not Available levothyroxi ne 150 mcg tablet TAKE 1 TABLET BY MOUTH EVERY MORNING active Not Available Not Available No t Available Advair Diskus 250 mcg-50 mcg/dose powder for inhalation INHALE 1 PUFF BY MOUTH TWICE DAILY active Not Available Not Available No t Available betamethaso ne dipropionat e 0.05 % topical cream APPLY CREAM TOPICALLY TO AFFECTED AREA TWICE DAILY 2019 active Not Available Not Available Not Avai lable oxybutynin chloride ER 5 mg tablet,exte nded release 24 hr TAKE 1 TABLET BY MOUTH DAILY active Not Available Not Available No t Available gabapentin 300 mg capsule TAKE ONE CAPSULE BY MOUTH THREE TIMES DAILY 03/20 completed Not Available Not Available Not Available triamterene 37.5 mg-hydrochl orothiazide 25 mg tablet Take one tablet po daily active Not Available Not Available No t Available omeprazole 20 mg capsule,del ayed release TAKE 1 CAPSULE BY MOUTH DAILY active Not Available Not Available No t Available diclofenac sodium 75 mg tablet,annita yed release 1 po QD 09/26 completed Not Available Not Available Not Available ranitidine 150 mg capsule TAKE ONE CAPSULE BY MOUTH TWICE DAILY DIRECTED FOR 30 DAYS 01/06 completed Not Available Not Available Not Available lisinopril 5 mg tablet TAKE 1 TABLET BY MOUTH DAILY active Not Available Not Available No t Available zolpidem 5 mg tablet TAKE 1 TAB BY MOUTH AT BEDTIME FOR 30 DAYS. active Not Available Not Available No t Available levofloxaci n 500 mg tablet active Not Available Not Available Not Available pilocarpine 2 % eye drops INSTILL 1 DROP INTO AFFECTED EYE(S) BY OPHTHALMI C ROUTE EVERY 4 HOURS 2015 active Not Available Not Available Not Avai lable ketorolac 60 mg/2 mL intramuscul ar solution Inject 2 mL by intramusc ular route for 1 day. 2014 active Not Available Not Available Not Avai lable Vitamin B-1 100 mg tablet active Not Available Not Available Not Available amoxicillin 875 mg-potassiu m clavulanate 125 mg tablet 04/29 completed Not Available Not Available Not Available Ventolin HFA 90 mcg/actuati on aerosol inhaler Inhale 2 puffs every 4 hours by inhalatio n route. active Not Available Not Available No t Available duloxetine 30 mg capsule,del ayed release TAKE 1 CAPSULE BY MOUTH EVERY EVENING active Not Available Not Available No t Available duloxetine 60 mg capsule,del ayed release TAKE 1 CAPSULE BY MOUTH EVERY MORNING active Not Available Not Available No t Available methadone Take 240mg po daily active Not Available Not Available No t Available mometasone 0.1 % topical solution APPLY THIN LAYER TOPICALLY TO THE AFFECTED AREA TWICE DAILY 2020 active Not Available Not Available Not Avai lable Myrbetriq 25 mg tablet,exte nded release active Not Available Not Available Not Available Breo Ellipta 100 mcg-25 mcg/dose powder for inhalation 1 inhalatio n daily active Not Available Not Available No t Available Otezla Starter 10 mg (4)-20 mg (4)-30 mg(19) tablets in a dose pack Take 1 startr pk every day by oral route for 30 days. 04/29 completed Not Available Not Available Not Available Harvoni 90 mg-400 mg tablet 06/04 completed Not Available Not Available Not Available fluticasone 113 mcg-salmete rol 14 mcg/actuati on breath activated powdr Inhale 1 puff twice a day by inhalatio n route for 30 days. active Not Available Not Available No t Available Vitals Date Recorded Body height Body mass index (BMI) Body weight Oxygen saturation Oxygen saturation in Arterial blood by Pulse oximetry Heart rate Systolic blood pressure Diastolic blood pressure Provider Name and Address Organization Details Last Updated DateTime 0 162.56 cm 40.4 kg/m2 381796. 66 g 98 % 98 % 63 /min 112 mm[Hg] 72 mm[Hg] Li Dey MA [facility] 0 16:03:10 Date Recorded Body height Provider Name an d Address Organization Details Last Updated DateTime 03/11/2020 162.56 cm Jackie Brown MA [facility] 03/11 15:18:18 Social History Question Answer Notes LastModified by Organizat ion Details LastModified Time Tobacco Smoking Status Current Every Day Smoker Mily Baez MA null, [facility] 02/05/2020 14:42:06 Do You Have An Advance Directive? No Information not available 10/31/2016 What Is Your Level Of Alcohol Consumption? None [email or web address] Information not available 02/10/2015 What Is Your Level Of Caffeine Consumption? Moderate Information not available 10/31/2016 How Much Tobacco Do You Chew? None Information not available 10/31/2016 What Type Of Diet Are You Following? REGULAR Information not available 10/31/2016 Which Illicit Or Recreational Drugs Have You Used? None Information not available 10/31/2016 Do You Or Have You Ever Used E-cigarettes Or Vape? Never Used Electronic Cigarettes Information not available 09/11/2019 Education 12 Information no t available 10/31/2016 What Is Your Occupation? Disabled Information not available 10/31/2016 Are There Any Guns Present In Your Home? No Information not available 10/31/2016 Hard Of Hearing Or Deaf In One Or Both Ears? No Information not available 10/31/2016 Legally Blind In One Or Both Eyes? No Information no t available 10/31/2016 Marital Status Informatio n not available 10/31/2016 What Was The Date Of Your Most Recent Tobacco Screening? 02/05/2020 Information not available 02/05/2020 Performs Monthly Self-breast Exam? No Information no t available 10/31/2016 Seat Belts Used Routinely Yes Information not available 10/31/2016 Smoke Alarm In Home Yes Information not available 10/31/2016 Do You Or Have You Ever Used Smokeless Tobacco? Never Used Smokeless Tobacco Information not available 09/11/2019 How Much Tobacco Do You Smoke? 0.5 PPD Information not available 02/05/2020 General Stress Level High Information not available 10/31/2016 Do You Use Sunscreen Routinely? No Information not available 10/31/2016 On What Date Was Tobacco Cessation Counseling Provided? 02/05/2020 Information not available 02/05/2020 How Many Years Have You Smoked Tobacco? 30 [email or web address] Information not available 06/04/2014 Sex: Unknown Functional Status Question Answer Note LastModified by Organization D etails LastModified Time What is your exercise level? None Information not available 10/31/2016 Mental Status None recorded. Family History Relationship Description Onset Age of this Age Resolved Age Notes LastModified by Organization Details LastModified Time Maternal Grandmother Osteopetrosi s [email or web address] Not available 12/2015 15:26:30 Paternal Grandmother Osteoporosis [email or web address] Not availab le 03/20/2016 15:26:30 Notes:Family Hx of Diabetes, Breast Cancer Medical History Condition Response Coronary Artery Disease N Other N High Blood Pressure N Atrial Fibrillation N Kidney or Bladder Problems N Thyroid Problems N GI Problems N Depression Y COPD N Blood Clots N Skin Problems Y Anemia N Heart Attack ([place]) N Anxiety Disorder N Diabetes N Muscle, Joint, or Bone Problems Y Seizures/Epilepsy N Acid Reflux (GERD) Y Cancer N Stroke N Asthma Y Allergies N ADHD N High Cholesterol N Hepatitis Y Liver Disease Y Headaches Y Heart Failure N Osteoporosis N Gynecological History Statement/Question Response Date of LMP Sexually Active? N Date of Last Pap Smear 11/06/2013 Sexual Problems? N Age at Menarche 14 Current Control Method None Age at First Child 31 Obstetrics History GPAL:G 11 P 3 0 7 2 Type Value Multiple Births 0 Full Term 3 Induced 2 Spontaneous 5 Premature 0 Living 2 Ectopics 0 Total 11 Immunizations Vaccine Type Date Status Note Provider Nam e and Address Organization Details Recorded Time COVID-19, mRNA, LNP-S, PF, 30 mcg/0.3 mL dose 1 completed Hayreen Lawanda [place], [place] - [facility] 12/14/2020 09:12:47 COVID-19, mRNA, LNP-S, PF, 30 mcg/0.3 mL dose 1 completed Hayreen Lawanda bentley [place] - [facility] 12/14/2020 09:13:04 Hep B, adult 7 completed Not Available [facility] 08/01/2019 02:45:29 Influenza, split virus, quadrivalent, preservative 7 completed Not Available [facility] 08/01/2019 02:51:06 Influenza, split virus, quadrivalent, preservative 9 completed Not Available [facility] 08/01/2019 02:47:16 Past Encounters Encounter ID Performer Location Encounter Start Date Encounter Closed Date Diagnosis/Indication Diagnosis SNOMED-CT Code Diagnosis ICD10 Code Diagnosis Note [id number] Sudha Loja MA [facility] [address] [place] [address] 06/04/2014 12:01:17 06/04/2014 14:49:28 Ulcer of mouth 83154577 [id number] Lisa Brewer MA [facility] [address] [place] [address] 09/17/2014 11:27:15 09/17/2014 12:56:57 Low back pain 425158176 Pain in toe 462860993 [id number] Lisa Brewer MA [facility] [address] [place] [address] 09/22/2014 14:17:08 09/22/2014 14:53:03 [facility] [id number] [facility] ([address]) [address] [place] [address] 02/10/2015 09:24:06 02/10/2015 10:33:18 Gynecologic examination 18899930 [id number] FINA Del Toro [facility] [address] [place] [address] 02/24/2015 11:12:12 02/24/2015 11:46:17 Low back pain 835618837 Chronic hepatitis 74582541 [id number] [facility] [address] [place] [address] 04/13/2015 11:21:16 04/13/2015 12:05:27 Osteomyelitis 37595267 Low back pain 446212891 Chronic hepatitis 53876434 Hyperglycemia 95186084 Psoriasis 8719730 [id number] Herminia Barros [facility] [address] [place] [address] 04/27/2015 11:15:44 04/27/2015 11:49:36 Chronic hepatitis 19213295 K73.9 [id number] Liza Leal PA-C [facility] [address] [place] [address] 05/31/2015 18:18:59 05/31/2015 18:35:02 Chronic depression 965134552 F34.1 [id number] Liza Leal PA-C [facility] [address] [place] [address] 03/20/2016 15:19:38 03/20/2016 16:05:46 Chronic depression 348746057 F34.1 Chronic hepatitis 721184 07 K73.9 Arthritis 5682121 M19.90 Psoriasis 0947868 L40.9 Dry eyes 660683188 H04.1 [id number] Liza Leal PA-C [facility] [address] [place] [address] 08/17/2016 14:53:51 08/17/2016 15:52:04 Chronic hepatitis 24472153 B18.2 [id number] Bryon Smith PA-C [facility] [address] [place] [address] 09/26/2016 09:48:01 09/26/2016 12:48:48 Chronic hepatitis C 358316334 B18.2 Genotype 1a 51 y/o C female Dx HCV+ 2004 while attending an inpatient drug rehab program ([place], [place])Risk Factors: +IVDU, +non-profe ssional tattooShe is HCV Tx naive. June 2016:RNA: 582 k IU/mLAlb: 4.4BT: 0.34PLT: 321PT/INR: 13.6/1.03A ST: 28ALT: 34 Has not injected heroin x 4 years and has not otherwise used in 3 years. Denied bleeding gums, hematemesi s, easy bruisabili ty or blood in her stool. She does not drink EtOH or use illicit drugs. Plan:Will continue her HCV workup today.A Liver U/S has been ordered RTC 1 - 2 months for f/u Obesity 415966884 E66.9 BMI: 39 History of appendectomy 187853841 Z98.890 ~ 1737 [id number] Bryon Smith PA-C [facility] [address] [place] [address] 10/31/2016 09:42:01 11/02/2016 13:05:54 Chronic hepatitis C 900014933 B18.2 Genotype 1a 51 y/o C female Dx HCV+ 2004 while attending an inpatient drug rehab program ([place], [place])Risk Factors: +IVDU, +non-profe ssional tattooShe is HCV Tx naive. September 2016:Fibro sure: F0RNA: 877 k IU/mLAlb: 4.4BT: 0.23PLT: 283AST: 25ALT: 33L3%: not detectedBs Ab: NegBsAg: NegRPR: NR October 2016:RUQ U/S: no hepatic or pancreatic mass lesion is evident. Has not injected heroin x 4 years and has not otherwise used in 3 years. Denied bleeding gums, hematemesi s, easy bruisabili ty or blood in her stool. She does not drink EtOH or use illicit drugs. 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 F15.10 Osteoarthritis 404518512 M15.0 Chronic depression 32140 0009 F34.1 Coronary arteriosclerosis 95308702 I25.10 [id number] Liza Leal PA-C [facility] [address] [place] [address] 05/17/2017 11:09:48 05/17/2017 14:00:55 Female stress incontinence 91690510 N39.3 Hematochezia 827159235 K 92.1 Psoriasis of scalp 93663 8008 L40.9 Obstructiv e sleep apnea syndrome 89663492 G47.33 Acute oste omyelitis of phalanx of toe 874001292 M86.179 Administra tion of influenza vaccine 29774401 Z23 [id number] WILLIE Delong-BC [facility] [address] [place] [address] 05/22/2017 13:33:19 06/03/2017 16:33:52 Screening mammography 01212565 Z12.31 Gynecologi c examination 33847178 Z01.265 [id number] Liza Leal PA-C [facility] [address] [place] [address] 08/02/2017 13:35:46 08/02/2017 16:48:15 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 Acute oste omyelitis of phalanx of toe 569011051 M86.179 Onychomycosis 033588330 B35.1 Psoriasis 9558640 L40.0 Ingrowing toenail 670916 009 L60.0 [id number] Harriet Villegas [facility] [address] [place] [address] 02/20/2018 11:39:04 02/20/2018 12:57:23 Psoriasis of scalp 943206356 L40.9 Chronic depression 17069 0009 F34.1 Edema of l ower extremity 845864787 R60.0 Fecal occu lt blood: positive 307637365 R19.5 Coronary atherosclerosis 471730154 I25.10 [id number] Liza Leal PA-C [facility] [address] [place] [address] 09/09/2018 11:19:05 09/09/2018 12:57:45 Chronic hepatitis C 126526390 B18.2 Chronic depression 81470 000 F34.1 Hyperglycemia 80899967 R 73.9 Screening for malignant neoplasm of colon 596951231 Z12.11 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 908307367 E06.3 Rheumatoid arthritis 698 33363 M06.989 [id number] Li Dey MA [facility] [address] [place] [address] 11/26/2018 11:49:21 11/26/2018 13:54:38 Screening for malignant neoplasm of colon 418428703 Z12.11 Chronic hepatitis C 1283 37523 B18.2 Prediabetes 809730843 R7 3.03 [id number] Liza Leal PA-C [facility] [address] [place] [address] 03/18/2019 11:52:53 03/18/2019 12:43:22 Arthralgia of the ankle and/or foot 223829507 M79.470 [id number] JOHNATHAN Delong Polly [address] [place] [address] 03/26/2019 11:26:27 03/26/2019 15:50:53 Screening mammography 41840373 Z12.31 Importance of yearly mammograms and sbe exam discussed with pt. Mammogram order given, pt verbalized understand ing. Menopausal syndrome 1237 09613 N95.9 1. Discussed hormonal options and otc herbal options for menopausal management . Discussed risk factors and side effects associated with both options including increase risk of cancer, heart attack and stroke, blood clots. 2. Pt currently an every day smoker and has high bp which contraindi cates hrt. 3. Pt states she will see what happens . List of otc meds given to patient to help with symptoms. Instructed patient to consult with pharmacist regarding any interactio n current meds may have with herbal otc and pt verbalized understand ing. 4. Pt to call and schedule for annual or sooner if needed. Smoker 77253919 F17.200 smoking cessation reviewed [id number] Liza Leal PA-C [facility] [address] [place] [address] 04/10/2019 10:55:24 04/10/2019 12:20:27 Chronic hepatitis C 010699540 B18.2 Chronic depression 38039 0009 F34.1 Acute bron chitis with bronchospasm 14788617 J20.8 [id number] ZURI Ramirez 14 IM [address] [facility] [place] [address] 04/29/2019 12:12:54 04/29/2019 16:51:16 Chronic hepatitis C 120383877 B18.2 Genotype 1a 51 y/o C female Dx HCV+ 2005 while attending an inpatient drug rehab program ([place], [place])Risk Factors: +IVDU, +non-profe ssional tattooShe is HCV Tx naive. September 2016:Fibro sure: F0RNA: 877 k IU/mL October 2016: RUQ U/S: no hepatic or pancreatic mass lesion is evident. Ms. Pardo is here today for a scheduled follow up clinic appointmen t. Our last outpt encounter was October 2016. She wishes to reenter care for HCV Tx. She is feeling well today and denied bleeding gums, hematemesi s, blood in her stools or easy bruisabili ty. She does not drink EtOH or use illicit drugs. Plan:Blood draw today.A RUQ U/S has been ordered. Please use condoms with all sex acts. [facility] Obesity 919750679 E66.9 BMI: 39.7 History of appendectomy 493770093 Z98.890 ~ 8977 [id number] Bryon Smith PA-C [facility] ([facility] [address] [place] [address] 06/04/2019 12:13:22 06/04/2019 14:19:15 Chronic hepatitis C 456433692 B18.2 Genotype 1a 51 y/o C female Dx HCV+ 2005 while attending an inpatient drug rehab program ([place], [place])Risk Factors: +IVDU, +non-profe ssional tattooShpadmini is HCV Tx naive. September 2016:Fibro sure: F0 April 2019:Alb: 4.0Bt: 0.3PLT: 220AST: 20ALT: 16BsAg: NegBsAb: NegLiver U/S: liver appears unremarkab le. Ms. Pardo is here today for a scheduled follow up clinic appointmen t. She completed labs and a liver U/S last month and is here today to discuss the results. She is feeling well today and denied bleeding gums, hematemesi s, blood in her stools or easy bruisabili ty. She does not drink EtOH or use illicit drugs. Her medication list is long and includes phenytoin. There is a category X ddi with this and all available HCV DAA options. As per pt, this is prescribed by Dr. Theodore Burger at [facility] in [place], [place] for pain. Plan:Have placed a call to Dr. Burger's office (left vm with her nurse, Maricruz Cole). Will discuss the option of holding her phenytoin while on HCV DAA therapy. Please use condoms with all sex acts. Will have pt RTC when above has been worked out.At that appointmen t will initiate Hep B vaccine series, complete additional labs and have her sign a commitment letter. History of appendectomy 692348988 Z98.890 ~ 1989 Morbid obesity 318519930 E66.01 BMI: 40 [id number] ZURI Agosto [facility] [address] [place] [address] 09/11/2019 15:51:28 09/11/2019 16:58:19 Acute bronchitis with bronchospasm 46716839 J20.8 Psoriasis 8512843 L40.0 Urinary incontinence [address] 15[address]39.41 Female str ess incontinence 96651774 N39.3 [id number] Liza Leal PA-C [facility] [address] [place] [address] 11/12/2019 09:16:10 11/13/2019 14:50:18 Candidiasis of mouth 65904401 B37.0 [id number] Liza Leal PA-C [facility] [address] [place] [address] 12/31/2019 09:54:15 01/01/2020 09:02:13 Chronic depression 466679409 F34.1 Candidiasis of mouth 797 92817 B37.0 [id number] ZURI Agotso [facility] [address] [place] [address] 02/05/2020 09:35:03 02/05/2020 14:58:49 Cervical radiculopathy 84258458 M54.12 Lumbar radiculopathy 128 209645 M54.16 [id number] ZURI Agosto [facility] [address] [facility] [place] [address] 03/11/2020 09:34:15 03/11/2020 15:42:44 Osteomyelitis of ankle AND/OR foot 80820385 M86.8X7 Pain of to e of right foot 1859462975 48131 M79.674 Mucous mem brane dryness 588098963 R68.89 Candidiasis of mouth 797 33629 B37.0 Health Concerns Section Related Observation LastModified by Organization Detai ls LastModified Time None Recorded Concern Status LastModified by Organization Details LastModified Time None Recorded Advance Directives Directive N: Payers Encounter Date Sequence Insurance Name Policy Number Policy Hatch Covered Member ID Hatch Member ID Guarantor Name 09/11/2019 1 [place] Roslyn S Levendoski [id number] Roslyn Levendoski 09/11/2019 2 [place] WHEN [place]ARE OR MEDICARE REPLACEMENT PRIMARY) Roslyn Levendoski [id number] Roslyn Levendoski 11/12/2019 1 [place] Roslyn S Levendoski [id number] Roslyn Levendoski 11/12/2019 2 [place] OR [place] REPLACEMENT PRIMARY) Roslyn Levendoski [id number] Roslyn Levendoski 12/31/2019 1 [place] Roslyn S Levendoski [id number] Roslyn Levendoski 12/31/2019 2 [place] REPLACEMENT PRIMARY) Roslyn Levendoski [id number] Roslyn Levendoski 02/05/2020 1 [place] Roslyn S Levendoski [id number] Roslyn Levendoski 02/05/2020 2 [place] OR [place] REPLACEMENT PRIMARY) Roslyn Levendoski [id number] Roslyn Levendoski 03/11/2020 1 [place] Roslyn S Levendoski [id number] Roslyn Levendoski 03/11/2020 2 [place] OR [place]IC[place] REPLACEMENT [place]IMARY) Roslyn Levendoski [id number] Roslyn Levendoski Notes Date Note Type Note Provider Name and Address Organization Details Recorded Time 09/11/2019 text/html 54 y/o female presents for routine f/u. No complaints. Liza Leal PA-C Attn: Accounting,[address] [place], [address], [facility] 09/11/2019 16:37:33 11/12/2019 text/html sore throat feels like thrush...has had it before with advair... Liza Leal PA-C Attn: Accounting,[address] [place], [address], [facility] 11/12/2019 14:36:50 12/31/2019 text/html her physician left needs refills.. Liza Leal PA-C Attn: Accounting,[address] [place], [address], [facility] 12/31/2019 17:10:04 02/05/2020 text/html feet and hands getting numb..feet feel likes blocks of wood..hx of sciatica Liza Leal PA-C Attn: Accounting,[address] [place], [address], [facility] 02/05/2020 14:50:25 03/11/2020 text/html pain in great toe ( both feet ) needs xrays...also thrush is returning Liza Leal PA-C Attn: Accounting,[address] [place], [address], [facility] 03/11/2020 15:29:57 OBGyn Episode Ob Episode Information Episode Created Date Number of Fetuses Patient Bloodtype Patient rh Status Prepregnancy Weight lbs Domestic Partner Domestic Partner Phone Father Name Bung Remover Status 05/22/20 17 1 CLOSED Fetus Data First Name Last Name Admitted to NICU Weight (g) Sex Living Outcome Pediatric Complications Fetus ID Race Codes Race Delivery Type [id number] Geoffrey Calculation Initial Geoffrey Date Initial Exam Date Initial Exam Provider Initial Ultrasound Date Last Menstrual Period Date Ultra Sound Weeks Gestation 0 Eighteen To Twenty Week Geoffrey Update Ultra Sound Date Fundal Height At Umbil Quickening Date Ultra Sound Latest Weeks Gestation Final Geoffrey Confirmed By Final Geoffrey Confirmed Date Final Geoffrey Date Ultra Sound Latest Days Gestation 0 0 Menstrual History Last Menstrual Date Menses Monthly On Bcp Conception Prior Menses Frequency Hcg Plus Date Menarche Onset Age Delivery Information Delivery Date Delivery Type Labor Anesthesia Weeks Gestation Incision Type Labor Labor Length Hrs Delivered By Post Complications Tubal Sterilization Discharge Date Comments 7 Discharge Information Feeding Method Contraceptive Method Maternal HG B and HCT Levels Ob Episode Information Episode Created Date Number of Fetuses Patient Bloodtype Patient rh Status Prepregnancy Weight lbs Domestic Partner Domestic Partner Phone Father Name Bung Remover Status 05/22/20 17 1 CLOSED Fetus Data First Name Last Name Admitted to NICU Weight (g) Sex Living Outcome Pediatric Complications Fetus ID Race Codes Race Delivery Type F Full Term [id number] Geoffrey Calculation Initial Geoffrey Date Initial Exam Date Initial Exam Provider Initial Ultrasound Date Last Menstrual Period Date Ultra Sound Weeks Gestation 0 Eighteen To Twenty Week Geoffrey Update Ultra Sound Date Fundal Height At Umbil Quickening Date Ultra Sound Latest Weeks Gestation Final Geoffrey Confirmed By Final Geoffrey Confirmed Date Final Geoffrey Date Ultra Sound Latest Days Gestation 0 0 Menstrual History Last Menstrual Date Menses Monthly On Bcp Conception Prior Menses Frequency Hcg Plus Date Menarche Onset Age Delivery Information Delivery Date Delivery Type Labor Anesthesia Weeks Gestation Incision Type Labor Labor Length Hrs Delivered By Post Complications Tubal Sterilization Discharge Date Comments 2 Still born Discharge Information Feeding Method Contraceptive Method Maternal HG B and HCT Levels Ob Episode Information Episode Created Date Number of Fetuses Patient Bloodtype Patient rh Status Prepregnancy Weight lbs Domestic Partner Domestic Partner Phone Father Name Bung Remover Status 05/22/20 17 1 CLOSED Fetus Data First Name Last Name Admitted to NICU Weight (g) Sex Living Outcome Pediatric Complications Fetus ID Race Codes Race Delivery Type F Full Term [id number] Geoffrey Calculation Initial Geoffrey Date Initial Exam Date Initial Exam Provider Initial Ultrasound Date Last Menstrual Period Date Ultra Sound Weeks Gestation 0 Eighteen To Twenty Week Geoffrey Update Ultra Sound Date Fundal Height At Umbil Quickening Date Ultra Sound Latest Weeks Gestation Final Geoffrey Confirmed By Final Geoffrey Confirmed Date Final Geoffrey Date Ultra Sound Latest Days Gestation 0 0 Menstrual History Last Menstrual Date Menses Monthly On Bcp Conception Prior Menses Frequency Hcg Plus Date Menarche Onset Age Delivery Information Delivery Date Delivery Type Labor Anesthesia Weeks Gestation Incision Type Labor Labor Length Hrs Delivered By Post Complications Tubal Sterilization Discharge Date Comments 4 Discharge Information Feeding Method Contraceptive Method Maternal HG B and HCT Levels
--- OUTSIDE RECORDS SUMMARY | 2024-08-17 19:25 | XMS_ITS | Clinical Summary ---
Author Organization [facility] Address [address] [facility] [place] [address] Care Team Providers Care Gauge And Weigh Machine Adjuster Name Role Phone Janet You PA-C Primary Care Provider [phone] [facility],non-owned Affiliates and Associated Physician Practices is amultiple site organization consisting of ambulatory clinics and hospital sitesin [place], [place], [place] and [place]. This disclosure is being madepursuant to the Care Everywhere program and may not contain all information available regarding this patient. Last updated 18.[facility] Allergies No known active allergies Medications * [...] 09/25/2017 Pain of left great toe 09/25/2017 Anti-HUMAN RESOURCES OPERATIONS MANAGER antibodies present 11/30/2014 Myalgia and myositis 09/20/2014 Chronic hepatitis C virus infection 09/20/2014 Overview (11/08/2020): Hepatitis B core antibody non reactive no immunity to hepatitis B Genotype 1a or 1b fibroscan Date of Exam: 11/08/2020 (LSM, kPa 11.1 CAP 258 Chronic low back pain 09/20/2014 Fatigue 09/20/2014 Psoriasis 09/20/2014 Resolved Problems Problem Noted Date Diagnosed Date Resolved Date Osteomyelitis 10/11/2020 01/11/2021 Family History Medical History Relation Name Comments Drug Abuse Brother heroin od Varicose Veins Mother Relation Name Status Comments Brother Father Mother Alive Social History Tobacco Use Types Packs/Day Years [...] 05/05/2021 10:31 AM CDT Plan of Treatment Health Maintenance Due Date Last Done Comments COLOGUARD (AGES 45-75) - COLON CA SCREENING 1965 COLON MONITORING 1965 COLONOSCOPY - COLON CA SCREENING 1965 CT COLONOGRAPHY - COLON CA SCREENING 1965 Colorectal Cancer Screening 1965 FIT - COLON CA SCREENING 1965 FLEX SIG - COLON CA SCREENING 1965 MAMMOGRAM 1965 MEDICARE AWV ? 12 MONTHS 1965 PAP SMEAR 1965 HIV SCREENING 1980 DTAP/TDAP/TD VACCINES (1 - Tdap) 1984 HEPATITIS B VACCINE (1 of 3 - 19+ 3-dose series) 1984 PNEUMOCOCCAL VACCINE 50+ (1 of 2 - PCV) 1984 PNEUMOCOCCAL VACCINE (1 of 2 - PCV) 1984 ZOSTER VACCINE (1 of 2) 2015 COVID-19 VACCINE (3 - season) 2024 10/28/2020, 10/07/2020 INFLUENZA VACCINE (#1) 2024 04/10/2019, 2016 SCREENING FOR DIABETES 05/09/2024 , 02/07/2021, 12/09/2020, Additional history exists DEPRESSION SCREENING 07/15/2024 HEPATITIS C SCREENING Completed 05/05/2021 , 05/05/2021, 05/02/2021, Additional history exists HIB VACCINE Aged Out No longer eligi ble based on patient's age to complete this topic HPV VACCINE Aged Out No longer eligi ble based on patient's age to complete this topic MENINGOCOCCAL (Group B) VACCINE Aged Out No longer eligible based on patient's age to complete this topic MENINGOCOCCAL VACCINE Aged Out No brittany allison eligible based on patient's age to complete this topic Goals Goal Patient Goal Type Associated Problems Recent Progress Patient-Stated? Author Medication Management General On track( 021 10:31 AM CDT) Felicita Hermosillo, RN Note: [...] approximately 13% higher for people identified as -[place]. eGFR by MDRD 57(L) > OR = [...] 29 U/L [facility] Comment: Test Performed at: [facility] [id number] [place] [address] ??[phone] TORSTEN BROWN DO,MPH Blood BLOOD SPECIMEN / Unknown 05/09/2021 8:47 AM CDT 05/09/2021 8:48 AM CDT Regina Deluca TRIM DIE MAKER-NET WEB APPLICATION DEVELOPER LAB - CHEMIS TRY ORDERABLES [facility] [address] [place] [address] * HEPATITIS C RNA QUANTITATIVE (05/02/2021 8:49 AM CDT) Pathologist [facility] Hepatitis C Virus RNA, Quantitative Real Time [...] of this assay have been determined by [employer]. The modifications have not been cleared or approved by the FDA. This assay has been validated pursuant to the CLIA regulations and is used for clinical purposes. ?? For more information on this test, go to: http://education.[employer]/faq/HSI42b2 (This link is being provided for informational/ educational purposes only.) REPORT COMMENT: CC DR Lynnette LE Test Performed at: [facility] [address] [place], [place] ??[address] TORSTEN BROWN DO,MPH 05/02/2021 8:49 AM CDT 05/02/2021 8:49 AM CDT Regina Deluca TRIM DIE MAKER-NET WEB APPLICATION DEVELOPER LAB - CHEMIS TRY ORDERABLES [facility] [address] [place] [address] from Last 3 Months or Most Recently Relevant to Health Maintenance Care Teams Gauge And Weigh Machine Adjuster Relationship Specialty Start Date End Date Janet You PATraceeC [address] [place] [address] PCP - General 07/11/22
--- NOTE | 2024-08-17 19:32 | ECG_ITS ---
Test Date: 2024-08-17 19:47:38 Measurements Intervals [place] Rate: 92 P: 47 NE: 136 QRS: 63 QRSD: 98 T: 47 QT: 371 QTc: 459 Interpretive Statements SINUS RHYTHM WITH FREQUENT VENTRICULAR PREMATURE COMPLEXES IN A BIGEMINAL PATTERN BASELINE ARTIFACT- I, II, III, AVR, AVL, AVF, V1 ABNORMAL ECG No previous ECG available for comparison Electronically Signed On 08-18-2024 07:19:03 FRONT END DEVELOPER JAVASCRIPT HTML CSS by Felix Douglass D.O.
--- NOTE | 2024-08-17 19:36 | PC.NURSE ---
pt ambulated to bathroom for urine specimen
[2024-08-17] MEDS: cloNIDine HCL 0.2 MG TABLET PO (19:48)
--- OUTSIDE RECORDS SUMMARY | 2024-08-17 20:03 | XMS_ITS | Encounter Summary ---
Author Organization [facility] Address [address] [place], [place] [address] [address] Care Team Providers Care Stylist Apprentice Name Role Phone Enrique Gandhi MD Primary Care Provider [phone] Anupama Cuba DO Primary Care Provider [phone] Janet You PA-C Primary Care Provider [phone] Reason for Visit * Reason Onset Date Comments MEDICATION REFILL 01/06/2018 Encounter Details Date Type Department Care Team (Late st Contact Info) Description 01/06/2018 Refill [facility] [address] [place] [address] Mary Jo Dukes MD [address] [place] [address] MEDICATION REFILL Social History Tobacco Use Types [...] on filedocumented in this encounter Care Teams Stylist Apprentice Relationship Specialty Start Date End Date Enrique Gandhi MD [address] [facility] [address] [place] [address] PCP - General Family Medicine 06/20/16 11/02/20 Anupama Cuba DO [address] [facility] [address] [place] [address] PCP - General 11/03/20 07/10/22 Janet You PATraceeC [address] [place] [address] PCP - General 07/11/22 documented as of this encounter
--- OUTSIDE RECORDS SUMMARY | 2024-08-17 20:03 | XMS_ITS | Referral Summary ---
Author Organization [facility] Medical Office Building [address] Address [address] [place] [address] Care Team Providers Care Machinist Apprentice Name Role Phone Anupama Cuba MD Primary Care Provider [phone] Encounters Date Type Department Care Team Description 06/24/2024 8:00 AM MULTIPLE DRUM SANDER HELPER Office Visit [facility] Cardiology [address] [place] [address] Indira Freeman MD Coronary artery disease involving cloverdale coronary artery of cloverdale heart without angina pectoris (Primary Dx); History [...] daily 04/18/20 22 Active adalimumab ([place],CF, Pen Pgfn-Lp-Hdpm HS) 80 mg/0.8 mL-40 mg/0.4 mL pen [...] tachycardia 09/07/2022 Coronary artery disease invo lving cloverdale coronary artery of [place] heart without angina pectoris 09/07/2022 History of [...] on file Legal Sex Female 7:28 PM MULTIPLE DRUM SANDER HELPER Gender Identity Not on file Sexual Orientation Not on file Last Filed Vital Signs Vital Sign Reading Time Taken Comments Blood Pressure 146/82 06/24/2024 8:01 AM MULTIPLE DRUM SANDER HELPER Pulse 61 06/24/2024 8:01 AM MULTIPLE DRUM SANDER HELPER Temperature 36.9 ??C (98.4 ??F) 11/01/2023 7:40 AM CD T Respiratory Rate 16 11/01/2023 9:28 AM CDT Oxygen Saturation 99% 06/24/2024 8:01 AM MULTIPLE DRUM SANDER HELPER Inhaled Oxygen Concentration - - Weight 99.8 kg (220 lb) 06/24/2024 8:01 AM MULTIPLE DRUM SANDER HELPER Height 162.6 cm (5' 4 ) 06/24/2024 8:01 AM MULTIPLE DRUM SANDER HELPER Body Mass Index 37.76 06/24/2024 8:01 AM MULTIPLE DRUM SANDER HELPER Plan of Treatment Not on file Procedures Procedure Name Priority Date/Time Associated Diagnosis Comments POCT LIPID PANEL Routine 06/24/2024 8:02 AM MULTIPLE DRUM SANDER HELPER Coronary artery disease involving cloverdale coronary artery of cl[place] heart without angina pectoris Mixed hyperlipidemia from Last 3 Months Results * POCT lipid panel (06/24/2024 8:02 AM MULTIPLE DRUM SANDER HELPER) Cholesterol, POC 162 mg/dL HDL, POC 61 mg/dL Triglycerides, POC 154 mg/dL LDL Cholesterol POC 71 mg/dL Chol/HDL Ratio, POC 1.2 Non-HDL Cholesterol, POC 101 mg/dL Cholesterol Total, POC 162 mg/dL Capillary blood 06/24/2024 8 :02 AM MULTIPLE DRUM SANDER HELPER us Ripa Radha Freeman MD POINT OF CARE TEST MCKAYArgelia WIGGINSLAMBERTO Final Result from Last 3 Months Insurance A[employer]NA MEDICARE GOLD IDPA AETNA MEDICARE GOLD IDPA [facility] Advance Directives For more information, please contact: [phone] * Full Code (Latest Code Status on File) Date Activated Date Inactivated Comments 11/01/2023 8:52 AM 11/02/2023 4:37 AM * Full Code Date Activated Date Inactivated Comments 05/29/2023 10:01 AM 05/30/2023 4:39 AM Care Teams Machinist Apprentice Relationship Specialty Start Date End Date Anupama Cuba MD [address] [place] [address] JENNIFFER RAMOS [address] PCP - General Family Medicine 09/27/22
--- OUTSIDE RECORDS SUMMARY | 2024-08-17 20:03 | XMS_ITS | Referral Summary ---
Author Organization [facility] Address [address] [place] [address] Care Team Providers Care Surgical Brace Maker Name Role Phone Janet You PA-C Primary Care Provider [phone] Source Comments [facility],non-owned Affiliates and Associated Physician Practices is amultiple site organization consisting of ambulatory clinics and hospital sitesin [place], [place], [place] and [place]. This disclosure is being madepursuant to the Care Everywhere program and may not contain all information available regarding this patient. Last updated 18.[facility] Allergies No known active allergies Medications [...] 09/25/2017 Pain of left great toe 09/25/2017 Anti-SWEATER DESIGNER antibodies present 11/30/2014 Myalgia and myositis 09/20/2014 [...] approximately 13% higher for people identified as -Emirati. eGFR by MDRD 57(L) > OR = [...] 29 U/L [facility] Comment: Test Performed at: [facility] ??[phone] TORSTEN BROWN DO,MPH Blood BLOOD SPECIMEN / Unknown 05/09/2021 8:47 AM CDT 05/09/2021 8:48 AM CDT Regina Deluca HONEY GRADER AND BLENDER-GMAT INSTRUCTOR LAB - CHEMIS TRY ORDERABLES Performing Organization Address [facility] Co de Phone Number [facility] [phone] [place] [address] * HEPATITIS C RNA QUANTITATIVE (05/02/2021 8:49 [...] of this assay have been determined by [employer]. The modifications have not been cleared or approved by the FDA. This assay has been validated pursuant to the CLIA regulations and is used for clinical purposes. ?? For more information on this test, go to: http://education.Huddler/faq/NAM40e0 (This link is being provided for informational/ educational purposes only.) REPORT COMMENT: CC DR Lynnette LE Test Performed at: [employer] [facility] ??[phone] TORSTEN BROWN DO,MPH 05/02/2021 8:49 AM CDT 05/02/2021 8:49 AM CDT Regina Deluca APRN-GMAT INSTRUCTOR LAB - CHEMIS TRY ORDERABLES Performing Organization Address [facility] Co de Phone Number [facility] [phone] [place] [address] from Last 3 Months or Most Recently Relevant to Health Maintenance Care Teams Surgical Brace Maker Relationship Specialty Start Date End Date Janet You, PA-C [address] [place] [address] PCP - General 07/11/22
--- OUTSIDE RECORDS SUMMARY | 2024-08-17 20:03 | XMS_ITS | Encounter Summary ---
Author Organization [facility] Address [address] [place], [place] [address] [address] Care Team Providers Care Plant Operations Worker Name Role Phone Enrique Gandhi MD Primary Care Provider [phone] Anupama Cuba DO Primary Care Provider [phone] Janet You PA-C Primary Care Provider [phone] Reason for Visit * Reason Onset Date Comments MEDICATION REFILL 07/28/2018 Encounter Details Date Type Department Care Team (Late st Contact Info) Description 07/28/2018 Refill [facility] [address] [place] [address] Mary Jo Dukes MD [address] [place] [address] MEDICATION REFILL Social History Tobacco [...] on filedocumented in this encounter Care Teams Plant Operations Worker Relationship Specialty Start Date End Date Enrique Gandhi MD [address] [facility] [address] [place] [address] PCP - General Family Medicine 06/20/16 11/02/20 Anupama Cuba DO [address] [facility] [address] [place] [address] PCP - General 11/03/20 07/10/22 Janet You PATraceeC [address] [place] [address] PCP - General 07/11/22 documented as of this encounter
--- OUTSIDE RECORDS SUMMARY | 2024-08-17 20:03 | XMS_ITS | Clinical Summary ---
Author Organization [facility] Address [address] [place] [address] Phone Care Team Providers Care Network Operations Project Manager Name Role Phone Ck Leal Primary Care Provider [phone] Allergies No known active allergies Medications DULoxetine (CYMBALTA) [address] Particles Take 30 mg by mouth daily. Active RANITIDINE HCL PO Take by mouth. Active carvedilol (COREG) 12.5 MG Tablet Take 12.5 mg by mouth 2 times daily. Active cloNIDine (CATAPRES) 0.2 MG Tablet Take 0.2 mg by mouth daily. Active atorvastatin (LIPITOR) 40 MG Tablet Take 40 mg by mouth daily. Active phenytoin (DILANTIN) 50 MG Chewable Tablet Take 50 mg by mouth 3 times daily. Active levothyroxine (SYNTHROID) 150 MCG Tablet Take 150 mcg by mouth daily. Active Aspirin 81 MG Tablet Take 81 mg by mouth daily. Active lisinopril (PRINIVIL, ZESTRIL) 5 MG Tablet Take 5 mg by mouth daily. Active oxybutynin (DITROPAN) 5 MG Tablet Take 5 mg by mouth 2 times daily. Active Active Problems Problem Noted Date Diagnosed Date Ingrown left greater toenail 09/25/2017 Pain of left great toe 09/25/2017 Family History Medical History Relation Name Comments Elevated Lipids Father Heart Attack Father Stroke Father Other-comment Maternal Grandmother osteop etrosis Elevated Lipids Mother Hypertension Mother Thyroid Cancer Mother Osteoporosis Paternal Grandmother Relation Name Status Comments Father Maternal Grandmother Mother Paternal Grandmother Social History Tobacco Use Types Packs/Day Years Used Date Smoking Tobacco: Every Day Cigarettes 0.5 7.7 Started: 12/13/2016 Smokeless Tobacco: Never Tobacco Cessation:Ready to Q uit: Yes Alcohol Use Standard Drinks/Week Comments No 0 (1 standard drink = 0.6 oz pur e alcohol) Comments No Sex and Gender Information Value Date Recorded Sex Assigned at Not on file Legal Sex Female 10:22 PM CDT Gender Identity Not on file Sexual Orientation Not on file Last Filed Vital Signs Vital Sign Reading Time Taken Comments Blood Pressure 126/50 11/12/2018 10:07 AM CDT Pulse 67 11/12/2018 10:07 AM CDT Temperature 36.4 ??C (97.6 ??F) 09/25/2017 1:14 PM CD T Respiratory Rate 20 09/25/2017 1:14 PM CDT Oxygen Saturation 96% 09/25/2017 1:14 PM CDT Inhaled Oxygen Concentration - - Weight 99.8 kg (220 lb) 11/12/2018 9:50 AM CDT Height 162.6 cm (5' 4 ) 11/12/2018 9:50 AM CDT Body Mass Index 37.76 11/12/2018 9:50 AM CDT Plan of Treatment Health Maintenance Due Date Last Done Comments TdaP Immunization 1965 Pap Smear 1986 Cervical Cancer Screening (CCS) 1995 HPV/Cotest 1995 Colonoscopy 2010 Colorectal Cancer Screening 2010 Cologuard 2015 Immunochemical Fecal Occult Blood 2015 Mammogram 2015 Pneumococcal Immunization (5 0+ years) (1 of 1 - PCV) 2015 Zoster Immunization (1 of 2) 2015 Hepatitis B Immunization (2 of 3 - 19+ 3-dose series) 11/28/2016 10/31/2016 Influenza Immunization (#1) 2024 11/0 09/2016, 10/08/2014 SARS-COV-2 Immunization ( season) 2024 05/23/2021, 10/28/2020, 10/07/2020 Respiratory Syncytial Virus (RSV) Immunization (Adult) (1 - 1-dose 75+ series) 2040 Meningococcal Immunization (ACWY) Aged Out No longer eligible b ased on patient's age to complete this topic Pneumococcal Immunization Combined Aged Out No longer eligible b ased on patient's age to complete this topic Rotavirus Immunization Aged Out No lo nger eligible based on patient's age to complete this topic Insurance MEDICARE [place]ICAID [place] Care Teams Network Operations Project Manager Relationship Specialty Start Date End Date Ck Leal PAC [address] [place] [address] PCP - General Physician Community Health Representative 07/27/15
--- OUTSIDE RECORDS SUMMARY | 2024-08-17 20:03 | XMS_ITS | Clinical Summary ---
Author Organization [facility] Address [address] [place] [address] Care Team Providers Care Vp Strategic Partnerships Name Role Phone Janet You PA-C Primary Care Provider [phone] Source Comments [facility],non-owned Affiliates and Associated Physician Practices is amultiple site organization consisting of ambulatory clinics and hospital sitesin [place], [place], [place] and [place]. This disclosure is being madepursuant to the Care Everywhere program and may not contain all information available regarding this patient. Last updated 18.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 eGFR by MDRD 57(L) > OR = [...] 29 U/L [facility] Comment: Test Performed at: [employer] [facility] [id number] [place] [address] ??[phone] TORSTEN BROWN DO,MPH Blood BLOOD SPECIMEN / Unknown 05/09/2021 8:47 AM CDT 05/09/2021 8:48 AM CDT Regina Deluca IMPROVEMENT COORDINATOR-MANAGER ASSEMBLY LAB - CHEMIS TRY ORDERABLES [facility] [address] [place] [address] * HEPATITIS C RNA QUANTITATIVE (05/02/2021 8:49 AM CDT) Pathologist [facility] Hepatitis C Virus RNA, Quantitative Real Time [...] of this assay have been determined by [employer]. The modifications have not been cleared or approved by the FDA. This assay has been validated pursuant to the CLIA regulations and is used for clinical purposes. ?? For more information on this test, go to: http://education.Sendah Direct/faq/QDI52a0 (This link is being provided for informational/ educational purposes only.) REPORT COMMENT: CC DR Lynnette LE Test Performed at: [employer] [facility] [address] [place], [place] ??[phone] TORSTEN BROWN DO,MPH 05/02/2021 8:49 AM CDT 05/02/2021 8:49 AM CDT Regina Deluca IMPROVEMENT COORDINATOR-MANAGER ASSEMBLY LAB - CHEMIS TRY ORDERABLES [facility] [address] [place] [address] from Last 3 Months or Most Recently Relevant to Health Maintenance Care Teams Vp Strategic Partnerships Relationship Specialty Start Date End Date Janet You PATraceeC [address] [place] [address] PCP - General 07/11/22
--- OUTSIDE RECORDS SUMMARY | 2024-08-17 20:03 | XMS_ITS | Patient Health Summary ---
Author Organization [facility] Address [address] [place] [address] Care Team Providers Care Platform Material Handling Supervisor Name Role Phone Janet You PA-C Primary Care Provider [phone] Note from [facility] [place],non-owned Affiliates and Associated Physician Practices is amultiple site organization consisting of ambulatory clinics and hospital sitesin [place], [place], [place] and [place]. This disclosure is being madepursuant to the Care Everywhere program and may not contain all information available regarding this patient. 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 Myalgia and myositis 09/20/2014 [...] hepatitis C without hepatic coma (HCC) * AK LIVER ELASTOGRAPHY(Performed 11/08/2020) Performed for Chronic hepatitis [...] * SS-A/SS-B (SJOGREN'S) ANTIBODY PANEL(Performed 11/25/2014) * PRODUCT SUPPORT SPECIALIST ANTIBODY(Performed 11/25/2014) * SCLERODERMA 70 (SCL) ANTIBODY(Performed [...] Comment: REPORT COMMENT: CC: Test Performed at: [facility] [address] [place], [place] ??[id number] TORSTEN BROWN DO,MPH Blood BLOOD SPECIMEN / Unknown 05/09/2021 8:47 AM CDT 05/09/2021 8:48 AM CDT Regina Deluca SUPERVISOR FILTER ASSEMBLY-SEWER BRICKLAYER LAB - HEMATO LOGY ORDERABLES [facility] [address] [address] [place] [phone] * (ABNORMAL) COMPREHENSIVE METABOLIC PANEL (05/09/2021 8:47 [...] approximately 13% higher for people identified as -Tanzanian. eGFR by MDRD 57(L) > OR = [...] 29 U/L [facility] Comment: Test Performed at: [facility] [address] [place], [place] ??[phone] TORSTEN BROWN DO,MPH Blood BLOOD SPECIMEN / Unknown 05/09/2021 8:47 AM CDT 05/09/2021 8:48 AM CDT Regina Deluca SUPERVISOR FILTER ASSEMBLY-SEWER BRICKLAYER LAB - CHEMIS TRY ORDERABLES [place] [phone] [place] [address] * (ABNORMAL) METHADONE BLOOD QUANTITATIVE (05/02/2021 8:49 AM CDT) [facility] Methadone 1428(H) 100 - 400 ng/mL [facility] Comment: ? This result was generated using LC-MS/MS; an equivalent method to GC/MS. ? Potentially Toxic Range: >= 2000 ng/mL This test was developed and its analytical performance characteristics have been determined by [facility] [place]. It has not been cleared or approved by the U.S. Food and Drug Administration. This assay has been validated pursuant to the CLIA regulations and is used for clinical purposes. Test Performed at: [facility] [address] ??[phone] SHAWANDA WEN MD,PHD 05/02/2021 8:49 AM CDT 05/02/2021 8:49 AM CDT Regina Deluca APRN-SEWER BRICKLAYER LAB - TOXICO LOGY ORDERABLES Performing Organization Address [facility] de Phone Number [facility] [address] [place] [address] * HEPATITIS C RNA QUANTITATIVE (05/02/2021 8:49 AM CDT) Only the most recent of3 resultswithin the time period is included. Pathologist [facility] Hepatitis C Virus RNA, Quantitative Real Time PCR <15 NOT DETECTED NOT DETECTED IU/mL [facility] Hepatitis C Virus RNA, Quantitative Real Time PCR <1.18 NOT DETECTED NOT DETECTED Log IU/mL [facility] Comment: This test was performed using Real-Time Polymerase Chain Reaction. Reportable Range: 15 IU/mL to 100,000,000 IU/mL (1.18 Log IU/mL to 8.00 Log IU/mL). ?? The analytical performance characteristics of this assay have been determined by [facility]. The modifications have not been cleared or approved by the FDA. This assay has been validated pursuant to the CLIA regulations and is used for clinical purposes. ?? For more information on this test, go to: http://education.Litigain/faq/OEK12b9 (This link is being provided for informational/ educational purposes only.) REPORT COMMENT: CC DR Lynnette LE Test Performed at: [facility] [address] ??[phone] TORSTEN BROWN DO,MPH 05/02/2021 8:49 AM CDT 05/02/2021 8:49 AM CDT Regina Deluca APRN-SEWER BRICKLAYER LAB - CHEMIS TRY ORDERABLES Performing Organization Address [facility] Co de Phone Number [facility] [address] [place] [address] * HCV RNA PCR QNT (EXTERNAL RESULT ENTRY) (05/02/2021) [facility] HCV RNA Quantitative RT-PCR (EXTERNAL RESULT) not detected [facility] Blood BLOOD SPECIMEN / Unknown 05/02/2021 Historical Provider LAB - CHEMISTRY O RDERABLES [facility] [address] [place] [address], [facility] [phone] * US ABDOMEN LIMITED (12/15/2020 2:50 PM CDT) Anatomical Region Laterality Modality Abdomen Ultrasound 12/15/2020 2:31 PM CDT Impressions 12/15/2020 3:22 PM CDT IMPRESSION: 1.Mildly coarsened hepatic parenchymal echotexture, consistent with chronic liver disease. No evidence of focal hepatic observations to suggest hepatocellular carcinoma. 2.Normal gallbladder. Dictated by Pablo Carranza MD (resident associate) This report was approved ??by Pablo Carranza [...] 2.Normal gallbladder. Dictated by Pablo Carranza MD (resident associate) This report was approved by Pablo Carranza Dr on 12/15/2020 3:04 PM . I, Dr. LUIS EDUARDO DUNBAR M.D. have personally reviewed and interpreted this examination/study. This report was electronically signed by LUIS EDUARDO DUNBAR M.D. on12/15/2020 3:22 PM . Regina Deluca SUPERVISOR FILTER ASSEMBLY-SEWER BRICKLAYER US ORDERABLE S * PROC FIBROSCAN (11/08/2020 [...] Technical Difficulty: None Ordering Provider: Regina Deluca ADMINISTRATIVE ASSISTANT RECEPTIONIST Phone Fax Fibroscan interpretation: I have personally [...] patients with nonalcoholic fatty liver disease. Gastroenterology 2019;156:7318-2133. Rachel MS, Loida R, Van Gabriel ML, [...] FIB4 score (Jermainuke et al. Hep[employer] Communications 2019;3:7890-4398) or NAFLD Fibrosis score (Raza et al. Clinical Gastroenterology and Hepatology 2019;17:9318-5662. from routine clinical data. 3. Liver stiffness [...] change as additional supporting data becomes available. [email or web address] Regina Deluca APRN-SEWER BRICKLAYER PROCEDURE/OR NOR SURGICAL ORDERABLES * PT-INR [facility] (10/11/2020 3:01 PM CDT) PT 13.6 12.1 - 14.8 Seconds 10/11/2020 4:09 PM CDT [facility] INR 1.1 See Comment 10/11/2020 4:09 PM CDT [facility] Comment:The suggested therap eutic range for standard coumadin (warfarin) therapy is an INR of 2.0-3.0. For high-risk patients (Mechanical Mitral Valve Prosthesis, etc.), the suggested prophylactic therapeutic range is an INR of 2.5-3.5. Blood BLOOD SPECIMEN / Unknown Lab Venipuncture / Unknown 10/11/2020 3:01 PM CDT 10/11/2020 3:59 PM CDT Regina Deluca APRN-SEWER BRICKLAYER LAB - COAGUL ATION ORDERABLES Performing Organization Address City/State/[facility] Co de Phone Number [facility] [address] [place] [phone], [facility] [phone] * HEPATITIS C GENOTYPE (10/11/2020 3:01 PM CDT) Hepatitis C Genotype 1a or 1b 10/15/2020 9:53 AM CDT [employer] ([facility]) Comment: Cannot be further subtyped into Type 1a or Type 1b due to high conservation of the 5' untranslated region of the HCV genome. In addition, Type 6 virus may be misclassified as Type 1 in some cases. The Hepatitis C Virus High-Resolution Genotype by Sequencing test (gDine test code [id number]) provides a higher level of subtype resolution. INTERPRETIVE INFORMATION: ??Hepatitis C Genotyping Hepatitis C Viral RNA is tested using reverse pedal assembler polymerase chain reaction (RT-PCR) to amplify a specific portion of the 5' untranslated region (5' UTR) of the viral genome. The amplified nucleic acid is sequenced bi-directionally using dye-terminator chemistry ([employer]). Sequencing data is compared to a database [...] developed and its performance characteristics determined by [employer]. It has not been cleared or approved by the US Food and Drug Administration. This test was performed in a CLIA certified laboratory and is intended for clinical purposes. Performed By: [facility] [employer] [address] [place] [address] Ultrasound Technol: Roslyn Mcneal MD Blood BLOOD SPECIMEN / Unknown Lab Venipuncture / Unknown 10/11/2020 3:01 PM CDT 10/11/2020 3:53 PM CDT Regina Deluca SUPERVISOR FILTER ASSEMBLY-SEWER BRICKLAYER LAB - CHEMIS TRY ORDERABLES [facility] ([facility]) [address] [place] [address], [facility] * HEPATITIS B SURFACE ANTIBODY (10/11/2020 3:01 PM CDT) Hepatitis B Virus Surface Antibody Non-react nishi Non-react nishi 10/11/2020 5:20 PM CDT [facility] Comment: < 8 mIU/mL Hepatitis B surface Antibody (HBsAb). Nonreactive for HBsAb - individual is considered not immune to Hepatitis B Virus infection. Hepatitis B Surface Antibody Quantitative 7.7 <8.0 mIU/mL 10/11/2020 5:20 PM CDT [facility] Comment: Hepatitis B Surface Antibody Numeric Result Interpretation: ? Nonreactive: ?<8.0 mIU/mL ? Indeterminate: ??8.0 - 12.0 mIU/mL ? Reactive: ?>12.0 mIU/mL ? Blood BLOOD SPECIMEN / Unknown Lab Venipuncture / Unknown 10/11/2020 3:01 PM CDT 10/11/2020 3:53 PM CDT Regina Deluca SUPERVISOR FILTER ASSEMBLY-SEWER BRICKLAYER LAB - Agil[employer] TRY ORDERABLES Performing Organization Address [facility] de Phone Number [address] [address], [facility] [phone] * HEPATITIS B CORE ANTIBODY (10/11/2020 3:01 PM CDT) HBc Antibody Total Non-reacti ve Non-reacti ve 10/11/2020 5:26 PM CDT [facility] Blood BLOOD SPECIMEN / Unknown Lab Venipuncture / Unknown 10/11/2020 3:01 PM CDT 10/11/2020 3:53 PM CDT Regina Deluca SUPERVISOR FILTER ASSEMBLY-SEWER BRICKLAYER [employer] TRY ORDERABLES Performing Organization Address [facility] de Phone Number [address] [address], [facility] [phone] * HEPATITIS B SURFACE ANTIGEN W RFLX CONFIRMATION (10/11/2020 3:01 PM CDT) Only the most recent of2 resultswithin the time period is included. Hepatitis B Virus Surface Antigen Non-reacti ve Non-reacti ve 10/11/2020 5:26 PM CDT [facility] Blood BLOOD SPECIMEN / Unknown Lab Venipuncture / Unknown 10/11/2020 3:01 PM CDT 10/11/2020 3:53 PM CDT Regina Deluca SUPERVISOR FILTER ASSEMBLY-SEWER BRICKLAYER LAB - Agilys TRY ORDERABLES Performing Organization Address [facility]/ZIP Co de Phone Number [facility] [address] [place] [address], [facility] [phone] * LAB HISTORICAL RESULTS-ONBASE (04/09/2017) Only the most recent of2 resultswithin the time period is included. 04/09/2017 Historical Provider LAB - CHEMISTRY O RDERABLES Performing Organization Address [facility] Co de Phone Number [facility] [address] [place], [place] [phone] [place] [address] * HEPATITIS C QUANT RT PCR GRAPHICAL (06/12/2016 10:23 AM CLOSING SPECIALIST) Hepatitis C Virus RNA IU/mL [id number] IU/mL [facility] Hepatitis C Virus RNA IU/mL 6.033 log10 IU/mL [facility] ([facility]) Test Information [facility] [employer] [facility] ([employer] reviews) Comment:The quantitative ran ge of this assay is 15 IU/mL to 100 million IU/mL. 06/12/2016 10:2 3 AM CLOSING SPECIALIST 06/12/2016 Narrative [facility] ([employer]) - 06/14/2016 3:19 PM CLOSING SPECIALIST Performed at: ??01 - Lab[address] ??[id number] Cuff Folder: Torsten Benson MD, Phone: ??[phone] Mary Jo Dukes MD LAB - CHEMISTR Y ORDERABLES Performing Organization Address City/[facility] Co de Phone Number [facility] ([employer]) * (ABNORMAL) RHEUMATOID FACTOR BLOOD QUANTITATIVE (06/12/2016 10:23 AM CLOSING SPECIALIST) Only the most recent of2 resultswithin the time period is included. RA latex Turbidimetry 25.2(H) 0.0 - 13.9 IU/mL [facility] ([employer]) 06/12/2016 10:2 3 AM CLOSING SPECIALIST 06/12/2016 Narrative [facility] ([employer]) - 06/13/2016 7:12 AM CLOSING SPECIALIST Performed at: ??01 - [facility] ??[id number] Cuff Folder: Matt West PhD, Phone: ??[phone] Mary Jo Dukes MD LAB - CHEMISTR Y ORDERABLES Performing Organization Address [facility] de Phone Number [facility] * (ABNORMAL) C-REACTIVE PROTEIN (06/12/2016 10:23 AM CLOSING SPECIALIST) Only the most recent of2 resultswithin the time period is included. C-Reactive Protein 12.6(H) 0.0 - 4.9 mg/L [facility] (BEAKER) 06/12/2016 10:2 3 AM CLOSING SPECIALIST 06/12/2016 Narrative [facility] ([facility] - 06/13/2016 7:12 AM CLOSING SPECIALIST Performed at: ??01 - Lab[address] ??[id number] Cuff Folder: Matt West PhD, Phone: ??[phone] Mary Jo Dukes MD LAB - CHEMISTR Y ORDERABLES Performing Organization Address [facility] de Phone Number [facility] ([facility]ER) * (ABNORMAL) SS-A/SS-B (SJOGRENS) ANTIBODY PANEL (06/12/2016 10:23 AM CLOSING SPECIALIST) Only the most recent of2 resultswithin the time period is included. Sjogren's Antibodies (SSA) <0.2 0.0 - 0.9 AI [facility] (BEAKER) Sjogren's Antibodies (SSB) 1.6(H) 0.0 - 0.9 AI [facility] (BEAKER) 06/12/2016 10:2 3 AM CLOSING SPECIALIST 06/12/2016 Narrative [facility] (BEAKER) - 06/13/2016 3:13 PM CLOSING SPECIALIST Performed at: ??01 - [facility] [address] ??[id number] Cuff Folder: Matt West PhD, Phone: ??[phone] Mary Jo Dukes MD LAB - CHEMISTR Y ORDERABLES Performing Organization Address [facility] Co de Phone Number [facility] ([facility] * ALDOLASE (06/12/2016 10:23 AM CLOSING SPECIALIST) Aldolase 5.1 3.3 - 10.3 U/L [facility] (BEAKER) 06/12/2016 10:2 3 AM CLOSING SPECIALIST 06/12/2016 Narrative [facility] - 06/13/2016 3:13 PM CLOSING SPECIALIST Performed at: ?? - Lab[address] ??[id number] Cuff Folder: Matt West PhD, Phone: ??[phone] Mary Jo Dukes MD LAB - CHEMISTR Y ORDERABLES Performing Organization Address [facility] de Phone Number [facility] ([facility]) * LDH BLOOD (06/12/2016 10:23 AM CLOSING SPECIALIST) LDH Total 209 119 - 226 IU/L [facility] (BEAKER) 06/12/2016 10:2 3 AM CLOSING SPECIALIST 06/12/2016 Narrative [facility] ([facility] - 06/13/2016 7:12 AM CLOSING SPECIALIST Performed at: ??01 - [facility] [address] ??[id number] Cuff Folder: Matt West PhD, Phone: ??[phone] Mary Jo Dukes MD LAB - CHEMISTR Y ORDERABLES Performing Organization Address [facility] de Phone Number [facility] ([facility]) * GGT (06/12/2016 10:23 AM CLOSING SPECIALIST) GGT 29 0 - 60 IU/L [facility] 06/12/2016 10:2 3 AM CLOSING SPECIALIST 06/12/2016 Narrative [facility] (BEAKER) - 06/13/2016 7:12 AM CLOSING SPECIALIST Performed at: ??01 - [facility] ??[id number] Cuff Folder: Matt West PhD, Phone: ??[phone] Mary Jo Dukes MD LAB - CHEMISTR Y ORDERABLES Performing Organization Address City/[facility]/ZIP Co de Phone Number [facility] ([facility]) * CK BLOOD (06/12/2016 10:23 AM CLOSING SPECIALIST) Only the most recent of2 resultswithin the time period is included. Pathologist [facility] CK Total 54 24 - 173 U/L [facility]) 06/12/2016 10:2 3 AM CLOSING SPECIALIST 06/12/2016 Narrative [facility] ([facility]) - 06/13/2016 7:12 AM CLOSING SPECIALIST Performed at: ??01 - [address] ??[id number] Cuff Folder: Matt West PhD, Phone: ??[phone] Mary Jo Dukes MD LAB - CHEMISTR Y ORDERABLES Performing Organization Address [facility] Co de Phone Number [facility] ([facility]) * (ABNORMAL) URINALYSIS MICROSCOPIC ONLY REFLEXED (11/25/2014 1:25 PM CDT) WBC, UA 0-5 0 - 5 /hpf [facility] (BEAKER) RBC UA 0-2 0 - 2 /hpf [facility] (BEAKER) Epithelial Cells (non renal) 0-10 0 - 10 /hpf [facility] (BEAKER) Crystals Present(A) N/A [facility] (BEAKER) Crystal Type Calcium Oxalate N/A [facility] (BEAKER) Mucus UA Present Not Estab. [facility] (BEAKER) Bacteria UA None seen None seen/Few [facility] (BEAKER) 11/25/2014 1:25 PM CDT 11/25/2014 6:04 PM CDT Narrative [facility] ([facility]) - 11/26/2014 7:19 AM CDT Performed at: ?? [facility] [address], [place], [place] ??[id number] Cuff Folder: Yovani Davis PhD, Phone: ??[phone] Mary Jo Dukes MD LAB - URINALYS IS ORDERABLES [facility] ([facility]AKER) * URINALYSIS W/MICROSCOPIC NO CULTURE (11/25/2014 1:25 PM CDT) Specific [place] 1.015 1.005 - 1.030 [facility] (BEAKER) pH Urine 6.0 5.0 - [...] PM CDT 11/25/2014 6:04 PM CDT Narrative [facility] ([facility]ER) - 11/26/2014 7:19 AM CDT Performed at: ?? - [address] ??[id number] Cuff Folder: Yovani Davis PhD, Phone: ??[phone] Mary Jo Dukes MD LAB - URINALYS IS ORDERABLES Performing Organization Address [facility] Co de Phone Number [facility]) * URIC ACID BLOOD (11/25/2014 1:25 PM CDT) Uric acid 5.9 2.5 - 7.1 mg/dL [facility]) Comment:Therapeutic target f or gout patients: <6.0 Blood specimen (specimen) BLOOD SPECIMEN / Unknown 11/25/2014 1:25 PM CDT 11/25/2014 6:04 PM CDT Narrative [facility]) - 11/26/2014 7:19 AM CDT Performed at: ??01 - [address] ??[id number] Cuff Folder: Yovani Davis PhD, Phone: ??[phone] Mary Jo Dukes MD LAB - CHEMISTR Y ORDERABLES Performing Organization Address [facility] de Phone Number [facility]) * [place]WRENCE (SM) ANTIBODY NEVA (11/25/2014 1:25 PM CDT) Lawrence Antibody <0.2 0.0 - 0.9 AI [facility]) Blood specimen (specimen) BLOOD SPECIMEN / Unknown 11/25/2014 1:25 PM CDT 11/25/2014 6:04 PM CDT Narrative [facility]) - 11/26/2014 3:21 PM CDT Performed at: ??01 - [address] ??[id number] Cuff Folder: Yovani Davis PhD, Phone: ??[phone] Mary Jo Dukes MD LAB - CHEMISTR Y ORDERABLES Performing Organization Address City/[facility] Co de Phone Number [facility]) * (ABNORMAL) PRODUCT SUPPORT SPECIALIST ANTIBODY (11/25/2014 1:25 PM CDT) PRODUCT SUPPORT SPECIALIST Antibody 1.0(H) 0.0 - 0.9 AI [facility] Blood specimen (specimen) BLOOD SPECIMEN / Unknown 11/25/2014 1:25 PM CDT 11/25/2014 6:04 PM CDT Narrative [facility]) - 11/26/2014 3:21 PM CDT Performed at: ??01 - [address] ??[id number] Cuff Folder: Yovani Davis PhD, Phone: ??[phone] Mary Jo Dukes MD LAB - CHEMISTR Y ORDERABLES [facility]) * CRISS BLOOD SCREEN W/REFLEX TITER (11/25/2014 1:25 PM CDT) CRISS IFA Negative [facility] ([facility]) Comment: ? Negative ?? <1:80 ? Borderline ??1:80 ? Positive ?? >1:80 Blood specimen (specimen) BLOOD SPECIMEN / Unknown 11/25/2014 1:25 PM CDT 11/25/2014 6:04 PM CDT Narrative [facility]) - 11/26/2014 3:21 PM CDT Performed at: ??01 - [address] ??[id number] Cuff Folder: Yovani Davis PhD, Phone: ??[phone] Mary Jo Dukes MD LAB - CHEMISTR Y ORDERABLES Performing Organization Address [facility] de Phone Number [facility] ([facility]) * HLA TYPING B27 (11/25/2014 1:25 PM CDT) HLA-B27 Positive [facility] ([facility]) Comment: HLA-B*27 Positive This patient is positive for HLA-B*27. This procedure rules out the B*27:06 and 27:09 alleles, which the literature suggests are not associated with spondyloarthropathies. HLA Lab CLIA ID Number [id number] This test was performed using PCR (Polymerase [...] PM CDT 11/25/2014 6:04 PM CDT Narrative [facility] ([facility]) - 11/30/2014 3:24 PM CDT Performed at: ??01 - [facility]DNA [address] [place], [place] ??[id number] Cuff Folder: Fredis Pierson PhD, Phone: ??[phone] Mary Jo Dukes MD LAB - CHEMISTR Y ORDERABLES Performing Organization Address [facility] de Phone Number [facility] ([facility]) * HISTONE ANTIBODY (11/25/2014 1:25 PM CDT) Histone Antibody 0.8 0.0 - 0.9 Units [facility] ([facility]) Comment: ? Negative ?<1.0 ? Weak Positive ?1.0 - 1.5 ? Moderate Positive ??1.6 - 2.5 ? Strong Positive ? >2.5 Blood specimen (specimen) BLOOD SPECIMEN / Unknown 11/25/2014 1:25 PM CDT 11/25/2014 6:04 PM CDT Narrative [facility] ([place]) - 11/30/2014 3:24 PM CDT Performed at: ??02 - [facility] ??[id number] Cuff Folder: Torsten Besnon MD, Phone: ??[phone] Mary Jo Dukes MD LAB - CHEMISTR Y ORDERABLES Performing Organization Address [facility] de Phone Number [facility] ([place]) * (ABNORMAL) COMPLEMENT TOTAL (11/25/2014 1:25 PM CDT) Complement Total CH50 >62(H) 42 - 62 U/mL [facility] ([place]) Comment:Please note refere nce interval change Blood specimen (specimen) BLOOD SPECIMEN / Unknown 11/25/2014 1:25 PM CDT 11/25/2014 6:04 PM CDT Narrative [facility] [place]) - 11/27/2014 7:17 AM CDT Performed at: ??02 - [address], [place], [place] ??[id number] Cuff Folder: Yovani Davis PhD, Phone: ??[phone] Mary Jo Dukes MD LAB - CHEMISTR Y ORDERABLES Performing Organization Address [facility] Hospital/[facility] Co de Phone Number [facility] [facility] [place]) * SCLERODERMA 70 (SCL) ANTIBODY (11/25/2014 1:25 PM CDT) Antiscleroderma -70 Antibody <0.2 0.0 - 0.9 AI [facility] ([facility]) Blood specimen (specimen) BLOOD SPECIMEN / Unknown 11/25/2014 1:25 PM CDT 11/25/2014 6:04 PM CDT Narrative [facility] ([facility] - 11/26/2014 3:21 PM CDT Performed at: ??01 - [address] ??[id number] Cuff Folder: Yovani Davis PhD, Phone: ??[phone] Mary Jo Dukes MD LAB - CHEMISTR Y ORDERABLES [facility] * DNA ANTIBODY DOUBLE STRANDED (11/25/2014 1:25 PM CDT) Pathologist [facility] dsDNA Antibody 7 0 - 9 IU/mL [facility] Comment: ? Negative ?<5 ? Equivocal ??5 - 9 ? Positive ?>9 Blood specimen (specimen) BLOOD SPECIMEN / Unknown 11/25/2014 1:25 PM CDT 11/25/2014 6:04 PM CDT Narrative [facility] ([facility] - 11/26/2014 3:21 PM CDT Performed at: ??01 - [address] ??[id number] Cuff Folder: Yovani Davis PhD, Phone: ??[phone] Mary Jo Dukes MD LAB - HEMATOLO GY ORDERABLES Performing Organization Address [facility] Co de Phone Number [facility] ([facility]) * CYCLIC CITRUL PEPTIDE AB IGG (CCP) (11/25/2014 1:25 PM CDT) Cyclic Citrullinated Peptide Antibody 6 0 - 19 units [facility] ([facility]) Comment: ?Negative ? <20 ?Weak positive ?20 - 39 ?Moderate positive ??40 - 59 ?Strong positive ?>59 Blood specimen (specimen) BLOOD SPECIMEN / Unknown 11/25/2014 1:25 PM CDT 11/25/2014 6:04 PM CDT Narrative [facility] MIHAELA) - 11/27/2014 7:17 AM CDT Performed at: ??01 - [address] ??[id number] Cuff Folder: Torsten Benson MD, Phone: ??[phone] Mary Jo Dukes MD LAB - CHEMISTR Y ORDERABLES [facility] ([facility]) * ERYTHROCYTE SEDIMENTATION RATE (11/25/2014 1:25 PM CDT) Erythrocyte Sedimentation Rate Westergren 15 0 - 32 mm/hr [facility]) Blood specimen (specimen) BLOOD SPECIMEN / Unknown 11/25/2014 1:25 PM CDT 11/25/2014 6:04 PM CDT Narrative [facility] (BEAKER) - 11/26/2014 7:19 AM CDT Performed at: ?? - [facility] ??[id number] Cuff Folder: Yovani Davis PhD, Phone: ??[phone] Mary Jo Dukes MD LAB - HEMATOLO GY ORDERABLES Performing Organization Address City/[facility]/ZIP Co de Phone Number [facility] (BEAKER) * CBC W/O DIFFERENTIAL (11/25/2014 1:25 PM CDT) WBC 4.9 3.4 - 10.8 x10E3/uL [facility] (BEAKER) RBC 4.08 3.77 - 5.28 x10E6/uL [facility] (BEAKER) Hemoglobin 12.0 11.1 - 15.9 g/dL [facility] (BEAKER) Hematocrit 34.9 34.0 - 46.6 % [facility] (BEAKER) MCV 86 79 - 97 fL [facility] (BEAKER) MCH 29.4 26.6 - 33.0 pg [facility] ([facility]AKER) MCHC 34.4 31.5 - 35.7 g/dL [facility] (BEAKER) RDW-CV 14.1 12.3 - 15.4 % [facility] (BEAKER) Platelet 251 150 - 379 x10E3/uL [facility] ([facility]AKER) Blood specimen (specimen) BLOOD SPECIMEN / Unknown 11/25/2014 1:25 PM CDT 11/25/2014 6:04 PM CDT Narrative [facility] (BE[facility]ER) - 11/26/2014 7:19 AM CDT Performed at: ??01 - [address] ??[id number] Cuff Folder: Yovani Davis PhD, Phone: ??[phone] Mary Jo Dukes MD LAB - HEMATOLO GY ORDERABLES Performing Organization Address City/[facility]/ZIP Co de Phone Number [facility] (BEAKER) * COMPLEMENT C4 (11/25/2014 1:25 PM CDT) [facility] Complement C4 36 9 - 36 mg/dL Adult [facility] ([facility]) Blood specimen (specimen) BLOOD SPECIMEN / Unknown 11/25/2014 1:25 PM CDT 11/25/2014 6:04 PM CDT Narrative [facility] ([facility]) - 11/26/2014 7:19 AM CDT Performed at: ??01 - [address] ??[id number] Cuff Folder: Yovani Davis PhD, Phone: ??[phone] Mary Jo Dukes MD LAB - SEROLOGY ORDERABLES Performing Organization Address [facility] Co de Phone Number [facility] ([facility]) * TSH (11/25/2014 1:25 PM CDT) [facility] TSH 2.570 0.450 - 4.500 uIU/mL [facility] ([facility]) Blood specimen (specimen) BLOOD SPECIMEN / Unknown 11/25/2014 1:25 PM CDT 11/25/2014 6:04 PM CDT Narrative [facility] ([facility]) - 11/26/2014 7:19 AM CDT Performed at: ??[address] ??[id number] Cuff Folder: Yovani Davis PhD, Phone: ??[phone] Mary Jo Dukes MD LAB - CHEMISTR Y ORDERABLES [facility] ([facility]) * T4 FREE (11/25/2014 1:25 PM CDT) [facility] T4 Free 0.85 0.82 - 1.77 ng/dL [facility] ([facility]) Blood specimen (specimen) BLOOD SPECIMEN / Unknown 11/25/2014 1:25 PM CDT 11/25/2014 6:04 PM CDT Narrative [facility] MELODY CHAIREZ) - 11/26/2014 7:19 AM CDT Performed at: ??01 - [address] ??[id number] Cuff Folder: Yovani Davis PhD, Phone: ??[phone] Mary Jo Dukes MD LAB - CHEMISTR Y ORDERABLES [facility] [place]HAELA) * (ABNORMAL) HEPATITIS C ANTIBODY (11/25/2014 1:25 PM CDT) Hepatitis C Virus Antibody >11.0(H) 0.0 - 0.9 s/co ratio [facility]) Comment: ?Negative: ? < 0.8 ? Indeterminate: 0.8 - 0.9 ?Positive: ? > 0.9 ??In order to reduce the incidence of a false positive ??result, the CDC recommends that all s/co ratios ??between 1.0 and 10.9 be confirmed by a more specific ??supplemental or PCR testing. [facility] offers HCV Ab ??w/Reflex to Verification test #[id number]. Blood specimen (specimen) BLOOD SPECIMEN / Unknown 11/25/2014 1:25 PM CDT 11/25/2014 6:04 PM CDT Narrative [facility] MELODY CHAIREZ) - 11/26/2014 7:19 AM CDT Performed at: ??01 - [address] ??[id number] Cuff Folder: Yovani Davis PhD, Phone: ??[phone] Mary Jo Dukes MD LAB - CHEMISTR Y ORDERABLES [facility] (KAREN) * (ABNORMAL) COMPLEMENT C3 (11/25/2014 1:25 PM CDT) Complement C3 183(H) 90 - 180 mg/dL Adult [facility] (KAREN) Blood specimen (specimen) BLOOD SPECIMEN / Unknown 11/25/2014 1:25 PM CDT 11/25/2014 6:04 PM CDT Narrative [facility] ([place]AREN) - 11/26/2014 7:19 AM CDT Performed at: ??01 - [address] ??[id number] Cuff Folder: Yovani Davis PhD, Phone: ??[phone] Mary Jo Luis Dukes MD LAB - CHEMISTR Y ORDERABLES Performing Organization Address City/[facility]/ZIP Co de Phone Number [facility] (KAREN) Care Teams Platform Material Handling Supervisor Relationship Specialty Start Date End Date Janet You, PATraceeC [address] [place] [place] [address] PCP - General 07/11/22
--- OUTSIDE RECORDS SUMMARY | 2024-08-17 20:03 | XMS_ITS | Encounter Summary ---
Author Organization [facility] Address [address] [place] [address]. [place] [address] [place] [address] Care Team Providers Care Healthcare Administration Intern Name Role Phone Anupama Cuba MD Primary Care Provider [phone] Nemesio Antony MD Unavailable Nemesio Antony MD Unavailable Encounter Details Date Type Department Care Team (Late st Contact Info) Description 09/26/2020 Abstract [facility] [address] [place] [phone] Nemesio Antony MD [address] 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
--- OUTSIDE RECORDS SUMMARY | 2024-08-17 20:03 | XMS_ITS | Encounter Summary ---
Author Organization [facility] Address [address] [place], [place] [address] [address] Care Team Providers Care Slot Machine Repairer Name Role Phone Enrique Gandhi MD Primary Care Provider [phone] Anupama Cuba DO Primary Care Provider [phone] Janet You PA-C Primary Care Provider [phone] Reason for Visit * Reason Onset Date Comments MEDICATION REFILL 02/12/2018 Encounter Details Date Type Department Care Team (Late st Contact Info) Description 02/12/2018 Refill [facility] [address] [place] [address] Mary Jo Dukes MD [address] [place] [phone] MEDICATION REFILL Social History Tobacco Use Types [...] on filedocumented in this encounter Care Teams Slot Machine Repairer Relationship Specialty Start Date End Date Enrique Gandhi MD [address] [facility] [address] [place] [address] PCP - General Family Medicine 06/20/16 11/02/20 Anupama Cuba DO [address] [facility] [address] [place] [address] PCP - General 11/03/20 07/10/22 Janet You PATraceeC [address] [place] [address] PCP - General 07/11/22 documented as of this encounter
--- OUTSIDE RECORDS SUMMARY | 2024-08-17 20:03 | XMS_ITS | Clinical Summary ---
Author Organization [facility] Address [address] [facility] [place] [address] [place] [address] Care Team Providers Care All Terrain Vehicle Racer Name Role Phone Anupama Cuba MD Primary Care Provider [phone] Nemesio Antony MD Unavailable Allergies Active Allergy [...] Treatment (MAT),PATIENT REPORTED THIS DOSE DAILY FROM [facility] Take 8 tablets (80 mg total) by mouth daily. 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 COLOGUARD RE-SCREENING RECOMMENDATION: Periodic routine colorectal cancer screening is an important part of preventive healthcare for asymptomatic persons at average risk for colorectal cancer. Following a negative Cologuard result, the [place] Cancer Society and U.S. Multi-Society Task Force screening guidelines recommend a Cologuard re-screening interval of 3 years. References: [place] Cancer Society (ACS). Colorectal cancer prevention and early detection. [place], [place]: [place] Cancer Society; [updated 2015Nov 05]. https://www.cancer.org/cancer/ylhoz-konwim-ibtjzm/xlbnygdre-ycwvgnuig-ubaujml/ac s-rec ommendations.html. Accessed March 14, 2018; Thomas DK, Sebastian MCCALL, Noah ZuluagaK, Colorectal Cancer Screening: Recommendations for Physicians and Patients from the U.S. Multi-Society Task Force on Colorectal Cancer Screening, Am J Gastroenterology 2017; 112:1941-9500. TEST TYPE: Composite algorithmic analysis of stool [...] interval of every 3 years by the [place] Cancer Society and U.S. Multi-Society Task Force. [...] can be accessed at the following location: www.[employer]/results. Additional description of the Cologuard test process, warnings and precautions can be found at www.cologuardtest.com. Rx only. Stool specimen (specimen) STOOL SPECIMEN / Unknown 10/24/2020 7:30 AM CDT 10/25/2020 12:27 PM CDT us Marilyn Personjavier MOTTLER OPERATOR BODY FLUIDS AND STOOLS ORDERABLE S Final Result [facility] ([address] [address] [facility]) [address] [place] [address], [place] [facility] (CLIA #:[id number]) [address] [place] [address] * COLONOSCOPY/EGD (01/06/2019) us Documents Scanned SCANNING Edited Result - Final from Last 3 Months or Most Recently Relevant to Health Maintenance Insurance MEDICAID AETNA AETNA Advance Directives Documents on File Type Date Recorded Patient Mirror Silverer Expl anation Advance Directives and Living Will 12/08/2019 12:00 AM ADVANCED DIRECTIVES Advance Directives and Living Will 01/06/2019 12:00 AM ADVANCED DIRECTIVES Care Teams All Terrain Vehicle Racer Relationship Specialty Start Date End Date Anupama Cuba MD [address] [place] [address] PCP - General FAMILY PRACTICE 08/26/20 Nemesio Atnony MD [address] [place] [address] Consulting Physician INTERNAL MEDICINE 01/05/22
--- OUTSIDE RECORDS SUMMARY | 2024-08-17 20:03 | XMS_ITS | Clinical Summary ---
Author Organization [facility] Address [address] [place] [address] Care Team Providers Care Associate Professor Name Role Phone Anupama Cuba MD Primary [...] daily 04/18/20 22 Active adalimumab (Humira,CF, Pen Qgff-Fe-Nsni HS) 80 mg/0.8 mL-40 mg/0.4 mL pen [...] tachycardia 09/07/2022 Coronary artery disease invo lving lime coronary artery of lime heart without angina pectoris 09/07/2022 History of cardiac arrest 09/07/2022 Encounters Date Type Department Care Team Description 06/24/2024 8:00 AM NETWORK INTERN Office Visit [facility] [address] [facility] [address] [place] [address] Indira Freeman MD Coronary artery disease involving lime coronary artery of lime heart without angina pectoris (Primary Dx); History [...] on file Legal Sex Female 7:28 PM NETWORK INTERN Gender Identity Not on file Sexual Orientation Not on file Obstetrics History Last Filed Vital Signs Vital Sign Reading Time Taken Comments Blood Pressure 146/82 06/24/2024 8:01 AM NETWORK INTERN Pulse 61 06/24/2024 8:01 AM NETWORK INTERN Temperature 36.9 ??C (98.4 ??F) 11/01/2023 7:40 AM CD T Respiratory Rate 16 11/01/2023 9:28 AM CDT Oxygen Saturation 99% 06/24/2024 8:01 AM NETWORK INTERN Inhaled Oxygen Concentration - - Weight 99.8 kg (220 lb) 06/24/2024 8:01 AM NETWORK INTERN Height 162.6 cm (5' 4 ) 06/24/2024 8:01 AM NETWORK INTERN Body Mass Index 37.76 06/24/2024 8:01 AM NETWORK INTERN Plan of Treatment Health Maintenance Due Date [...] POCT LIPID PANEL Routine 06/24/2024 8:02 AM NETWORK INTERN Coronary artery disease involving lime coronary artery of lime heart without angina pectoris Mixed hyperlipidemia from Last 3 Months Results * POCT lipid panel (06/24/2024 8:02 AM NETWORK INTERN) Cholesterol, POC 162 mg/dL HDL, POC 61 mg/dL Triglycerides, POC 154 mg/dL LDL Cholesterol POC 71 mg/dL Chol/HDL Ratio, POC 1.2 Non-HDL Cholesterol, POC 101 mg/dL Cholesterol Total, POC 162 mg/dL Capillary blood 06/24/2024 8 :02 AM NETWORK INTERN [facility] Radha Freeman MD POINT OF CARE TEST LEIDY NELSON Final Result from Last 3 Months Insurance TNA MEDICARE GOLD [facility] AETNA MEDICARE GOLD IDPA AETNA [facility] ADVANTRA Advance Directives For more information, please contact: [phone] * Full Code (Latest Code Status on File) Date Activated Date Inactivated Comments 11/01/2023 8:52 AM 11/02/2023 4:37 AM * Full Code Date Activated Date Inactivated Comments 05/29/2023 10:01 AM 05/30/2023 4:39 AM Care Teams Associate Professor Relationship Specialty Start Date End Date Anupama Cuba MD [address] [place] [address] PCP - General Family Medicine 09/27/22
[2024-08-17 20:10] LABS: Basophils Absolute Auto 0.02 K/mm3 (0.00-0.10); Basophils Percent Auto 0.3 % (0.0-1.0); Eosinophils Absolute Auto 0.22 K/mm3 (0.02-0.50); Eosinophils Percent Auto 3.3 % (1.0-6.0); Hematocrit 39.1 % (35.0-49.0); Hemoglobin 12.6 g/dL (12.0-15.0); Immature Granulocyte Absolute 0.02 K/mm3 (0.00-0.00); Immature Granulocyte Percent A 0.3 % (0.0-0.0); Lymphocytes Absolute Auto 1.61 K/mm3 (1.10-4.50); Lymphocytes Percent Auto 24.1 % (18.0-42.0); Mean Corpuscular HGB Conc 32.2 g/dL (32-36); Mean Corpuscular Hemoglobin 28.9 pg (27.0-31.0); Mean Corpuscular Volume 89.7 fL (78.0-102.0); Mean Platelet Volume 9.9 fl (9.2-11.8); Monocytes Absolute Auto 0.33 K/mm3 (0.10-0.90); Monocytes Percent Auto 4.9 % (2.0-11.0); Neutrophils Absolute Auto 4.47 K/mm3 (1.70-7.20); Neutrophils Percent Auto 67.1 % (50.0-70.0); Platelet Count Result 258 K/mm3 (150-420); Red Blood Count 4.36 M/mm3 (4.20-5.40); White Blood Count 6.7 K/mm3 (4.8-10.8)
[2024-08-17 20:15] LABS: Add Urine Microscopic? YES; Appearance Urine Clear (Clear); Bilirubin Urine Negative (Negative); Blood Urine 1+ (Negative); Color Urine Light Yellow (Yellow); Glucose Urine UA Negative (Negative); Ketones Urine Negative (Negative); Leukocyte Esterase Ur 3+ LEU/UL (Negative); Nitrate Urine Negative (Negative); Protein Urine Negative (Negative); Specific Grav Ur <= 1.005 (1.010-1.020); Urobilinogen Urine 0.2 mg/dL (0.2-1.0)
[2024-08-17 20:22] LABS: Bacteria Urine Trace /hpf; Squamous Epithelial Cell Urine None seen /hpf (Few); WBC Urine 31-50 /hpf (0-3)
[2024-08-17 20:36] LABS: Alanine Aminotransferase 23 U/L (14-59); Alkaline Phosphatase 136 U/L (46-116); Anion Gap 10 mmol/L (4-12); Aspartate Amino Transferase 17 U/L (15-37); Bilirubin,Total 0.3 mg/dL (0.00-1.00); Blood Urea Nitrogen 13 mg/dL (7-18); Calcium 9.4 mg/dL (8.5-10.1); Carbon Dioxide 26 mmol/L (21-32); Chloride 105 mmol/L (98-108); Estimated CRCL calculation 36 ml/min; Estimated Glomerular Filt Rate 30; Glucose 76 mg/dL (70-99); Magnesium 1.7 mg/dL (1.8-2.4); NT Pro B Type Natriuretic Pept 233 pg/mL (0-125); Osmolality Calculated 291 mOsm/kg (285-295); Potassium 3.6 mmol/L (3.5-5.1); Sodium 141 mmol/L (136-145); Troponin I 8.6 ng/L (0.00-60.4)
[2024-08-17] MEDS: MAGNESIUM SULF 2 GM/WATER 50ML 2 GM/50 ML BAG IVPB (21:43)
--- NOTE | 2024-08-17 21:44 | PC.NURSE ---
iv started and patient resting on stretcher without distress. call light within reach and lights dimmed for comfort.
--- NOTE | 2024-08-17 22:29 | PC.NURSE ---
electrocardiograph technician to bedside, patient dropped her phone, given to patient per electrocardiograph technician. ivf infusing.
== END 2024-08-17 23:13 | disposition home or self-care (01) ==
PROVIDERS: Emergency Provider Emergency Medicine; PCP Family Medicine
DX: I12.9 Hypertensive chronic kidney disease with stage 1 through stage 4 chronic kidney disease, or unspecified chronic kidney disease (principal); N18.9 Chronic kidney disease, unspecified; E83.42 Hypomagnesemia; N30.01 Acute cystitis with hematuria; I48.0 Paroxysmal atrial fibrillation; I25.2 Old myocardial infarction; J44.9 Chronic obstructive pulmonary disease, unspecified; F17.290 Nicotine dependence, other tobacco product, uncomplicated
CPT/HCPCS: 36415; 71045; 80053; 81001; 83735; 83880; 84484; 85025; 87086; 93005; 96365; 96368; 99284; A9270; J0696; J3475

== ENCOUNTER 2024-08-30 19:42 | Emergency (ER) | payer MEDICARE, MEDICAID, SELFPAY ==
[2024-08-30] VITALS (8 sets, daily range): BP systolic 151–197; BP diastolic 74–112; PULSE 69–77; RESP 16; TEMP 36.2; O2SAT 96–100
--- NOTE | ~2024-08-30 | CT_ITS ---
EXAMINATION: CT brain wo con DATE: 08/30/2024 20:08 INDICATION: Dizziness TECHNIQUE: Computed tomography (CT) of the head was performed without intravenous contrast. Sagittal and coronal reconstructions were performed. The mA was adjusted according to patient size. Iterative reconstruction technique was employed. The dose-length product was 605.33 mGy-cm. COMPARISON: head CT dated 06/27/2022 FINDINGS: No acute intracranial hemorrhage, acute infarction or abnormal extra axial fluid collection. Symmetri c prominence of the sulci consistent with mild age-appropriate diffuse cerebral volume loss. Ventric les are normal and symmetric. No mass/mass effect. The orbits, paranasal sinuses and mastoid air cell s are normal. IMPRESSION: 1. Normal aging brain. Reviewed, dictated and finalized at location A. RONMENTAL PROTECTION OFFICER IMPRESSION: 1. Normal aging brain.
--- NOTE | ~2024-08-30 | XR_ITS ---
EXAMINATION: XR chest 1V DATE: 08/30/2024 20:09 INDICATION: Dizziness TECHNIQUE: frontal view of the chest was obtained. COMPARISON: Chest radiograph dated 08/17/2024 FINDINGS: The lungs remain clear with no focal airspace opacities, pulmonary edema, pleural effusion or pneumot horax. Heart size is normal with small left paracardial fat pad. IMPRESSION: 1. No acute cardiopulmonary disease. Reviewed, dictated and finalized at location A. TURNER
--- NOTE | 2024-08-30 19:44 | ED_ITS ---
HPI - Dizziness General Chief Complaint: Dizziness Stated Complaint: dizzy spell Time Seen by Provider: 08/30/24 19:44 Source: patient Mode of arrival: ambulatory Limitations: no limitations History of Present Illness HPI Narrative: 59 years old white female came from home by private car complaining of shaking, feeling like going to pass out, dry mouth, jittery feeling started prior to arrival. History of hypertension, hyperlipidemia, hypothyroidism, COPD. Patient reports a lot of stress lately. She is to be on Xanax. Currently on Cymbalta. Related Data Home Medications ?Medication ?Instructions ?Recorded ?Confirmed ?Last Taken ?Type clonidine HCl 0.2 mg tablet 0.2 mg PO DAILY 12/06/19 02/12/24 08/26/23 History duloxetine 30 mg capsule,delayed 30 mg PO HS 12/06/19 02/12/24 08/25/23 History release duloxetine 60 mg capsule,delayed 60 mg PO DAILY 12/06/19 02/12/24 08/26/23 History release omeprazole 20 mg capsule,delayed 20 mg PO DAILY 12/06/19 02/12/24 08/26/23 History release adalimumab 40 mg/0.4 mL 40 mg subcut A3ESBEN 11/29/22 02/12/24 05/26/23 History subcutaneous pen kit (Humira(CF) Pen) atorvastatin 40 mg tablet 40 mg PO QPM 02/28/23 02/12/24 08/25/23 History potassium chloride 20 mEq 20 meq PO USEASDIRECTD 02/28/23 02/12/24 06/11/23 History tablet,extended release(part/cryst) (Klor-Con M) methadone 40 mg soluble tablet 110 mg PO DAILY 03/09/23 02/12/24 09/03/23 History clobetasol 0.05 % scalp solution 1 applic topical DAILY 04/30/23 02/12/24 08/26/23 History levothyroxine 200 mcg capsule 200 mcg PO DAILY 08/26/23 02/12/24 08/26/23 History Allergies Allergy/AdvReac Type Severity Reaction Status Date / Time adhesive Allergy Unknown BLISTERS Verified 08/30/24 19:53 methotrexate Allergy Rash Verified 08/30/24 19:53 Review of Systems 2 Review of Systems: All systems reviewed & are unremarkable except as noted in HPI and below PMFSH Past Medical History Medical History Thyroid disorder Heart attack GERD (gastroesophageal reflux disease) COPD (chronic obstructive pulmonary disease) Allergies Hypothyroidism Chronic anemia Cardiomyopathy 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 Asthma Rheumatoid arthritis Chronic back pain Anxiety with depression Hepatitis C Meningitis Kidney stone Skull fracture Overactive bladder Syncope and collapse Seizures Hyperlipidemia Hypertension Surgical History Surgical History History of vein stripping History of cardiac catheterization History of tubal ligation (01/2004) History of appendectomy Family History Family History Father Malignant neoplasm of prostate Hypertension Renal disease Heart disease Mother Hypertension Heart disease Thyroid disorder Grandparent Cancer Hypertension Heart disease Cerebrovascular accident Son Asthma Grandparent Cancer Heart problem Social History Social History Social History: Roslyn has gotten her flu, tetanus, and pneumonia vaccine. Has had a colonoscopy. Has had a blood transfusion back in 1968(date unknown). She drinks 6 cups of cola/day. Surrogate medical decision maker: iMndi Ríos, mother. Code status: Full code. Smoking packs per day: 1 Smoking cigarettes per day: 20.0 Years smoked: 35 Smoking pack-years: 35.00 Smoking status: Current every day smoker Tobacco type: e-cigarettes/vaping Second hand tobacco smoke exposure: Yes Additional smoking assessment comments: PT USES E-CIGARETTES NOW, VAPE Alcohol intake: never Substance use: former Substance use type: heroin Other substance usage details: METHADONE DAILY Last use: 2019 Do You Feel Safe in your Home?: Yes Lack of Transportation: YES Lack of Food: Sometimes True Current Housing: I Have Housing Concerned About Future Housing: No Difficulty Paying Gas/Electric Bills: No Difficulty Paying for Meds: No Currently Unemployed: No Education: High School Diploma/GED Difficulty w/ Childcare or Family Care: No Living arrangements: with family Additional living arrangements comments: . Lives in [place] with son and daughter. Occupation/Education: other Additional occupation/education comments: Disabled. Gender identity (if verbalized by the patient): Female Sexual Orientation (if Verbalized by the Patient): Straight or Heterosexual Spiritual care concerns: No Agree to blood products: Yes Exam 2 Narrative: General appearance: Well-developed, well-nourished , restless Skin: Normal color Head: Normocephalic, nontraumatic Eyes: Clear conjunctiva ENT: Oropharynx normal, ears normal, nose normal Neck: Supple, nontender Chest and respiratory: Airway patent, no respiratory distress, no accessory muscle use Heart: Regular rate/rhythm Abdomen: Soft, nontender, no organomegaly, quiet bowel sounds Vascular: Normal peripheral pulses, normal capillary refill. Musculoskeletal: Normal range of motion, nontender back Neurologic: Alert and oriented ?3, COMMUNITY MARKETING MANAGER is normal as tested, no gross motor deficit Course Vital Signs Vital signs: Vital Signs Temperature 36.2 C L 08/30/24 19:42 Pulse Rate 70 08/30/24 19:42 Respiratory Rate 16 08/30/24 19:42 Blood Pressure 197/92 H 08/30/24 19:42 Pulse Oximetry 100 08/30/24 19:42 Oxygen Delivery Room Air 08/30/24 19:42 Temperature 36.2 C L 08/30/24 19:42 Pulse Rate 70 08/30/24 21:47 Respiratory Rate 16 08/30/24 21:47 Blood Pressure 151/74 H 08/30/24 21:47 Pulse Oximetry 97 08/30/24 21:47 Oxygen Delivery Room Air 08/30/24 21:47 MDM - Dizziness MDM Narrative Medical decision making narrative: patient presents with anxiety like symptoms Vital signs showing blood pressure 197/92, otherwise within normal limit Physical examination showing restless patient Differential diagnosis include anxiety like symptoms, uncontrolled hypertension, cardiac arrhythmia, electrolyte imbalance, dehydration. Blood workup today includes CBC, CMP, troponin, showed no acute abnormalities EKG on arrival showed normal sinus rhythm at 66 beats per minute otherwise normal EKG. Chest x-ray showed no acute abnormalities CT head without contrast showed no acute abnormalities. ABG on room air showed finding consistent with respiratory alkalosis Patient tested negative for COVID, flu and RSV Differential Diagnosis Differential diagnosis: Likely other ( as above) Medical Records Attestation: I reviewed the patient's medical records. Lab Data Attestation: I reviewed the patient's lab results. 08/30/24 19:45 08/30/24 19:45 Labs: Lab Results 08/30/24 08/30/24 08/30/24 Range/Units 19:45 19:46 19:50 WBC 5.4 (4.8-10.8) K/mm3 RBC 4.16 L (4.20-5.40) M/mm3 Hgb 11.9 L (12.0-15.0) g/dL Hct 37.6 (35.0-49.0) % MCV 90.4 (78.0-102.0) fL MCH 28.6 (27.0-31.0) pg MCHC 31.6 L (32-36) g/dL RDW 14.3 (11.6-14.4) % Plt Count 228 (150-420) K/mm3 MPV 10.5 (9.2-11.8) fl Immature Gran % (Auto) 0.2 H (0.0-0.0) % Neut % (Auto) 53.1 (50.0-70.0) % Lymph % (Auto) 36.3 (18.0-42.0) % [place] % (Auto) 6.5 (2.0-11.0) % Eos % (Auto) 3.7 (1.0-6.0) % Baso % (Auto) 0.2 (0.0-1.0) % Lymph # (Auto) 1.94 (1.10-4.50) K/mm3 [place] # (Auto) 0.35 (0.10-0.90) K/mm3 Eos # (Auto) 0.20 (0.02-0.50) K/mm3 Baso # (Auto) 0.01 (0.00-0.10) K/mm3 Abs Immat Gran (auto) 0.01 H (0.00-0.00) K/mm3 Absolute Neuts (auto) 2.84 (1.70-7.20) K/mm3 Absolute Nucleated RBC 0.00 (0.00-0.00) K/mm3 Nucleated RBC % 0.0 (0-0.0) % Sodium 143 (136-145) mmol/L Potassium 4.0 (3.5-5.1) mmol/L Chloride 103 (98-108) mmol/L Carbon Dioxide 31 (21-32) mmol/L Anion Gap 9 (4-12) mmol/L BUN 11 (7-18) mg/dL Creatinine 1.59 H (0.55-1.02) mg/dL Estim Creat Clear Calc 39 ml/min Estimated GFR 33 L (59 - ) Glucose 90 (70-99) mg/dL POC Capillary Glucose 99 (65-105) mg/dl Calculated Osmolality 295 (285-295) mOsm/kg Calcium 9.1 (8.5-10.1) mg/dL Total Bilirubin 0.3 (0.00-1.00) mg/dL AST 23 (15-37) U/L ALT 23 (14-59) U/L Alkaline Phosphatase 115 (46-116) U/L Troponin I 6.9 (0.00-60.4) ng/L Total Protein 7.7 (6.4-8.2) g/dL Albumin 3.9 (3.4-5.0) g/dL Urine Color Light yellow (Yellow) Urine Appearance Cloudy A (Clear) Urine pH 6.0 (5.0-8.0) Ur Specific Melvin 1.010 (1.010-1.020) Urine Protein Negative (Negative) Urine Glucose (UA) Negative (Negative) Urine Ketones Negative (Negative) Ur Blood (Man) Negative (Negative) Urine Nitrate Negative (Negative) Urine Bilirubin Negative (Negative) Urine Urobilinogen 0.2 (0.2-1.0) mg/dL Leukocyte Esterase Rfl 1+ H (Negative) JUAN/UL Urine WBC 16-20 H (0-3) /hpf Urine WBC Clumps Present H (None) /hpf Amorphous Sediment Few H (None) Urine Bacteria 1+ H (None) /hpf Influenza A (RT-PCR) Negative (Negative) Influenza B (RT-PCR) Negative (Negative) RSV (RT-PCR) Negative (Negative) SARS-CoV-2 RNA (RT-PCR) Negative (Negative) Imaging Data Radiologist's impression: Impressions Head CT 08/30/24 20:08 IMPRESSION: 1. Normal aging brain. Chest X-Ray 08/30/24 20:17 IMPRESSION: 1. No acute cardiopulmonary disease. ECG Data EKG #1: Attestation: I personally reviewed and interpreted this ECG as follows: ECG completion date: 08/30/24 Interpretation: normal sinus rhythm at 66 beats per minute, otherwise normal EKG Critical Care Time Critical Care Time Critical Care Time: No Discharge Plan Discharge Clinical Impression: Acute hyperventilation syndrome, Urinary tract infection Patient Disposition: Home, Self-Care Condition: Improved Instructions: Hyperventilation (ED), Urinary Tract Infection in Women (DC) Additional Instructions: Return if symptoms are worsening , call your family physician for appointment, take Tylenol as as needed for aches and pain, continue home medications. Patient Language: Lithuanian Prescriptions: New nitrofurantoin monohyd/m-cryst [Macrobid] 100 mg capsule 100 mg PO Q12H 5 Days Qty: 10 0RF Rx Instructions: must administer with a meal/food No Action cephalexin 500 mg capsule 500 mg PO BID 7 Days Qty: 14 0RF clonidine HCl 0.2 mg tablet 0.2 mg PO DAILY omeprazole 20 mg capsule,delayed release(DR/EC) 20 mg PO DAILY duloxetine 30 mg capsule,delayed release(DR/EC) 30 mg PO HS duloxetine 60 mg capsule,delayed release(DR/EC) 60 mg PO DAILY methadone 40 mg Tablet,Soluble 110 mg PO DAILY ergocalciferol (vitamin D2) 1,250 mcg (50,000 unit) capsule 1,250 mcg PO WEEKLY Qty: 16 3RF atorvastatin 40 mg tablet 40 mg PO QPM potassium chloride [Klor-Con M20] 20 mEq tablet,ER particles/crystals 20 meq PO USEASDIRECTD Humira(CF) Pen 40 mg/0.4 mL pen injector kit 40 mg SUBCUT [id number] carvedilol [Coreg] 6.25 mg Tablet 6.25 mg PO Q12HR Qty: 60 0RF furosemide 20 mg tablet 20 mg PO DAILY PRN (Reason: Edema and weight gain ) Qty: 30 0RF Rx Instructions: Take if you gain 3lbs in one day or 5lbs in 5 days, or notice increased swelling of the bilateral lower extremities clobetasol 0.05 % solution 1 applic TOPICAL DAILY levothyroxine 200 mcg Capsule 200 mcg PO DAILY Follow-up/Referrals: UNKNOWN,DOCTOR [Non-Staff] -
--- OUTSIDE RECORDS SUMMARY | 2024-08-30 19:44 | XMS_ITS | Encounter Summary ---
Author Organization [facility] Address [facility]ly [facility] [place] [address] Care Team Providers Care Ingot Car Operator Name Role Phone Anupama Cuba MD Primary Care Provider [phone] Nemesio Antony MD Unavailable Nemesio Antony MD Unavailable Encounter Details Date Type Department Care Team (Late st Contact Info) Description 09/26/2020 Abstract [facility] [address] [place] [id number] Nemesio Antony MD [address] 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
--- NOTE | 2024-08-30 19:45 | ECG_ITS ---
Test Date: 2024-08-30 19:50:04 Measurements Intervals Helm Rate: 66 P: -2 GA: 131 QRS: 54 QRSD: 96 T: 54 QT: 353 QTc: 371 Interpretive Statements SINUS RHYTHM BASELINE ARTIFACT- I, II, III, AVR, AVL, AVF, V1 NORMAL ECG Compared to ECG 08/17/2024 19:47:38 Ventricular premature complex(es) no longer present Electronically Signed On 08-31-2024 07:06:15 BLUE LEATHER SORTER by Felix Douglass D.O.
--- OUTSIDE RECORDS SUMMARY | 2024-08-30 19:45 | XMS_ITS | Data Portability ---
Author Organization [facility] Address [address] [place] [address] Care Team Providers Care Denitrator Operator Name Role Phone LIZA LEAL Primary Care Provider JEN BROWER OTHER Assessment No assessment recorded. Plan of Treatment Reminders Order Date Submit Date Provider Last Modified By Organization Details Last Modified Time Details Appointments None recorded. Lab None recorded. Referral ENT referral 2019 [facility], [address] [facility], [facility] [address], [address], 0 12:32:51 urogynecol ogist referral 2019 [facility] Anaid Boggs, [address] , [facility] [address], [place], [address], 0 11:16:05 Procedures None recorded. Surgeries None recorded. Imaging XR, toe(s), 2 or more view 2019 [facility] (Admitting), [address] [facility] [address], [place], [address], 0 11:20:31 XR, foot, 3 or more view 2019 [facility] (Admitting), [address] [facility] [address], [place], [address], 0 11:20:31 XR, lumbar spine 2019 [facility] (Admitting), [address] [facility] [address], [place], [address], 0 15:25:32 XR, cervical spine 2019 [facility] (Admitting), [address], [place], [address], 0 15:25:32 Medication Orders pilocarpin e 5 mg tablet 2019 020 [facility] #3259, [address] [place], [address], 0 15:27:35 Diflucan 200 mg tablet 2019 020 [facility]3259, [address] [place], [address], 0 10:43:38 fluconazol e 150 mg tablet 2019 020 INTERFACE [facility] #3259, [address] [place], [address], 0 14:34:22 oxybutynin chloride ER 10 mg tablet,ext ended release [address] [facility] [address], [address] [place], [address], 0 14:41:23 cyclobenza niko 10 mg tablet 2019 020 INTERFACE [facility] [address], [address] [place], [address], 0 16:34:49 betamethas one valerate 0.1 % lotion [address] [facility] [address], [address] [place], [address], 0 16:03:20 betamethas one dipropiona te 0.05 % topical cream 2019 020 INTERFACE [facility] [address], [address] [place], [address], 0 16:33:16 AirDuo RespiClick 113 mcg-14 mcg/actuat ion breath activated 2019 020 INTERFACE [facility] [address], [address] [place], [address], 0 16:28:15 ProAir HFA 90 mcg/actuat ion aerosol inhaler 2019 020 [facility] [address], [address] [place], [address], 0 16:28:11 Patient TargetsNo targets recorded. Patient Instructions Encounter Date Encounter Id Patient Instructions Last Modified By Organization Details Last Modified Time 09/11/2019 [id number] bladder training : care instructions jnanney Not available 09/11/2019 16:36:41 kegel exercises: care instructions jnanney Not available 09/11/2019 16:36:40 Stress Incontinence: Care Instructions jnanney Not available 09/11/2019 16:36:40 psoriasis: care instructions jnanney Not available 09/11/2019 16:33:06 11/12/2019 [id number] vaginal yeast infection: care instructions jnanney Not available 11/12/2019 14:34:20 candidiasis: car e instructions jnanney Not available 11/12/2019 14:34:20 12/31/2019 [id number] candidiasis: car e instructions jnanney Not available 12/31/2019 17:09:45 she will have pharmacy call us for refills.. jnanney Not available 12/31/2019 17:05:53 03/11/2020 [id number] candidiasis: car e instructions jnanney Not available [...] Organization Details Recorded Time Low back pain 933951832 Active Harriet Daiglestevan FINA null, [place] [facility] 6 15:26:30 Pain in toe 923583057 Active Harriet Villegas [place], [place] [facility] 6 15:26:30 Osteomyelit is 16556485 Active Harriet Daiglestevan [place] [facility] 6 15:26:30 Chronic hepatitis 81508806 Completed 09/26/2016 Bryon Smith PA-C Attn: Accountin g,[address] [place], [address], [place] - [facility] 7 11:28:49 Complaining of pelvic pain Active Harriet Daiglestevan [place] [facility] 6 15:26:30 Hyperglycem ia 28514105 Active Harriet Daiglestevan [place] [facility] 6 15:26:30 Psoriasis 8960935 Active Liza Leal PA-C Attn: Accountin g,[address] [place], [address], [place] [facility] 6 15:59:19 Chronic depression 074550018 Active Liza Leal PA-C Attn: Accountin g,[address] [facility], [place], [address], [place] [facility] 6 15:59:19 Arthritis 5254163 Active Liza Leal PA-C Attn: Accountin g,[address] [place], [address], [place] [facility] 6 15:59:19 Dry eyes 384036495 Active Liza Leal PA-C Attn: Accountin g,[address] [facility], [place], [address], [facility] - [facility] 6 15:59:19 Ulcer of mouth 69029141 Active Harriet Villegas MA null, [place] - [facility] 6 15:26:30 History of appendectom y 692862437 Active 2016 Bryon Smith PA-C Attn: Accountin g,[address], [place], [address], [facility] - [facility] 7 11:28:38 Obesity 507023108 Active 2016 Bryon Smith PA-C Attn: Accountin g,[address], [place], [address], [facility] - SI 7 11:28:39 Chronic hepatitis C 711020713 Active 2016 Bryon Smith PA-C Attn: Accountin g,[address] [facility], [place], [address], [facility] - SI 7 11:28:42 Problem Notes None recorded. Procedures Surgical History Date Name Laterality Status Provider Name and Address Organization Details Recorded Time 11/07/19 14 Date of Last Pap Smear completed Lisa Brewer MA [facility] 02/10/2015 09:42:37 Appendectomy completed Nilda Carrington MA [facility] 06/04/2014 12:19:16 Tonsillectomy completed Nilda Carrington MA [facility] 06/04/2014 12:19:16 Imaging Results None recorded. Procedure Notes None recorded. Medical Equipment None Reported. Allergies No known drug allergies Medications Name Sig Start Date Stop Date Status Note LastModified by Organization Details LastModified Time ventolin hfa 108 mcg/act aers 01/06 completed Not Available Not Available Not Available nystatin 147589 unit/ml susp 01/06 completed Not Available Not [...] Updated DateTime 0 162.56 cm 40.4 kg/m2 877787. 66 g 98 % 98 % 63 /min 112 mm[Hg] 72 mm[Hg] Li Dey MA [facility] 0 16:03:10 Date Recorded Body height Provider Name an d Address Organization Details Last Updated DateTime 03/11/2020 162.56 cm Jackie Brown MA [facility] 03/11 15:18:18 Social History Question Answer Notes LastModified by Organizat ion Details LastModified Time Tobacco Smoking Status Current Every Day Smoker Mily Baez MA null, [facility] 02/05/2020 14:42:06 Do You Have An Advance [...] or Bladder Problems N Thyroid Problems N Blood Clots N COPD N Depression Y GI Problems N Skin Problems Y Anemia N Heart Attack ([place]) N Diabetes N Anxiety Disorder N Muscle, Joint, or Bone Problems Y Seizures/Epilepsy N Acid Reflux (GERD) Y Cancer N Stroke N Asthma Y Allergies N ADHD N High Cholesterol N Hepatitis Y Liver Disease Y Headaches Y Osteoporosis N Heart Failure N Gynecological History Statement/Question Response Date of [...] mL dose 1 completed Hayreen Lawanda bent[place], [place] - [facility] 12/14/2020 09:12:47 COVID-19, mRNA, LNP-S, PF, 30 mcg/0.3 mL dose 1 completed Hayreen Lawanda bentley [place] - [facility] 12/14/2020 09:13:04 Hep B, adult 7 completed Not Available [facility] 08/01/2019 02:45:29 Influenza, split virus, quadrivalent, preservative 7 completed Not Available [facility] 08/01/2019 02:51:06 Influenza, split virus, quadrivalent, preservative 9 completed Not Available [facility] 08/01/2019 02:47:16 Past Encounters Encounter ID Performer Location Encounter Start Date Encounter Closed Date Diagnosis/Indication Diagnosis SNOMED-CT Code Diagnosis ICD10 Code Diagnosis Note [id number] Sudha Loja MA [facility] [address] [place] [address] 06/04/2014 12:01:17 06/04/2014 14:49:28 Ulcer of mouth 21876914 [id number] Lisa Brewer MA [facility] [address] [place] [address] 09/17/2014 11:27:15 09/17/2014 12:56:57 Low back pain 496907530 Pain in toe 210569116 [id number] Lisa Brewer MA [facility] [address] [place] [address] 09/22/2014 14:17:08 09/22/2014 14:53:03 [facility] [id number] [facility] ([address]) [address] [place] [address] 02/10/2015 09:24:06 02/10/2015 10:33:18 Gynecologic examination 39289851 [id number] FINA Del Toro [facility] [address] [place] [address] 02/24/2015 11:12:12 02/24/2015 11:46:17 Low back pain 979935097 Chronic hepatitis 05275474 [id number] [facility] [address] [place] [address] 04/13/2015 11:21:16 04/13/2015 12:05:27 Osteomyelitis 41902125 Low back pain 860413205 Chronic hepatitis 91792293 Hyperglycemia 75309314 Psoriasis 3618647 [id number] Herminia Barros [facility] [address] [place] [address] 04/27/2015 11:15:44 04/27/2015 11:49:36 Chronic hepatitis 88179109 K73.9 [id number] Liza Leal PA-C [facility] [address] [place] [address] 05/31/2015 18:18:59 05/31/2015 18:35:02 Chronic depression 199483958 F34.1 [id number] Liza Leal PA-C [facility] [address] [place] [address] 03/20/2016 15:19:38 03/20/2016 16:05:46 Chronic depression 750707596 F34.1 Chronic hepatitis 532285 07 K73.9 Arthritis 0432297 M19.90 Psoriasis 7039890 L40.9 Dry eyes 607926410 H04.1 29 [id number] Liza Leal PA-C [facility] [address] [place] [address] 08/17/2016 14:53:51 08/17/2016 15:52:04 Chronic hepatitis 17474313 B18.2 [id number] Bryon Smith PA-C [facility] [address] [place] [address] 09/26/2016 09:48:01 09/26/2016 12:48:48 Chronic hepatitis C 810933525 B18.2 Genotype 1a 51 y/o C female Dx HCV+ 2004 while attending an inpatient drug rehab program ([place], [place])Risk Factors: +IVDU, +non-profe ssional tattooShe is [...] 1 - 2 months for f/u Obesity 091703301 E66.9 BMI: 39 History of appendectomy 800169033 Z98.890 ~ 0505 [id number] Bryon Smith PA-C [facility] [address] [place] [address] 10/31/2016 09:42:01 11/02/2016 13:05:54 Chronic hepatitis C 193240806 B18.2 Genotype 1a 51 y/o C female Dx HCV+ 2004 while attending an inpatient drug rehab program ([place], [place])Risk Factors: +IVDU, +non-profe ssional tattooShe is [...] of her Fibrosis score and the current [employer] HCV Tx formulary restrictio ns.Will initiate the Hep B vaccine series today RTC 12 months Obesity 436680328 E66.9 BMI: 39 History of appendectomy 221400202 Z98.890 ~ 5621 [id number] Li Dey MA [facility] [address] [place] [address] 04/10/2017 10:23:08 04/10/2017 13:38:59 Urinary incontinence 503919219 N39.41 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 Osteoarthritis 617013093 M15.0 Chronic depression 84236 0009 F34.1 Coronary arteriosclerosis 74208513 I25.10 [id number] Liza Leal PA-C [facility] [address] [place] [address] 05/17/2017 11:09:48 05/17/2017 14:00:55 Female stress incontinence 57333719 N39.3 Hematochezia 729488152 K 92.1 Psoriasis of scalp 65012 8008 L40.9 Obstructiv e sleep apnea syndrome 15480994 G47.33 Acute oste omyelitis of phalanx of toe 155856692 M86.179 Administra tion of influenza vaccine 28210761 Z23 [id number] WILLIE Delong-ERICKA [facility] [address] [place] [address] 05/22/2017 13:33:19 06/03/2017 16:33:52 Screening mammography 18226822 Z12.31 Gynecologi c examination 57546834 Z01.009 [id number] Liza Leal PA-C [facility] [address] [place] [address] 08/02/2017 13:35:46 08/02/2017 16:48:15 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 Acute oste omyelitis of phalanx of toe 996778892 M86.179 Onychomycosis 046771541 B35.1 Psoriasis 6722250 L40.0 Ingrowing toenail 851164 009 L60.0 [id number] Harriet Villegas MA [facility] [address] [place] [address] 02/20/2018 11:39:04 02/20/2018 12:57:23 Psoriasis of scalp 044231589 L40.9 Chronic depression 43405 0009 F34.1 Edema of l ower extremity 502342396 R60.0 Fecal occu lt blood: positive 493327939 R19.5 Coronary atherosclerosis 787441304 I25.10 [id number] Liza Leal PA-C [facility] [address] [place] [address] 09/09/2018 11:19:05 09/09/2018 12:57:45 Chronic hepatitis C 715011682 B18.2 Chronic depression 60915 000 F34.1 Hyperglycemia 41498748 R 73.9 Screening for malignant neoplasm of colon 845982092 Z12.11 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 240445274 E06.3 Rheumatoid arthritis 698 22993 M06.947 [id number] Li Dey MA [facility] [address] [place] [address] 11/26/2018 11:49:21 11/26/2018 13:54:38 Screening for malignant neoplasm of colon 112205614 Z12.11 Chronic hepatitis C 1283 99383 B18.2 Prediabetes 670932063 R7 3.03 [id number] Liza Leal PA-C [facility] [address] [place] [address] 03/18/2019 11:52:53 03/18/2019 12:43:22 Arthralgia of the ankle and/or foot 703966577 M79.661 [id number] JOHNATHAN Delong [address] [place] [address] 03/26/2019 11:26:27 03/26/2019 15:50:53 Screening mammography 28641267 Z12.31 Importance of yearly mammograms and sbe exam discussed with pt. Mammogram order given, pt verbalized understand ing. Menopausal syndrome 1237 23750 N95.9 1. Discussed hormonal options and otc [...] for annual or sooner if needed. Smoker 02306843 F17.200 smoking cessation reviewed [id number] Liza Leal PA-C [facility] [address] [place] [address] 04/10/2019 10:55:24 04/10/2019 12:20:27 Chronic hepatitis C 849076896 B18.2 Chronic depression 98698 0009 F34.1 Acute bron chitis with bronchospasm 59379717 J20.8 [id number] ZURI Ramirez [address] [place] [address] 04/29/2019 12:12:54 04/29/2019 16:51:16 Chronic hepatitis C 661897042 B18.2 Genotype 1a 51 y/o C female Dx HCV+ 2005 while attending an inpatient drug rehab program ([place], [place])Risk Factors: +IVDU, +non-profe ssional tattooShe is [...] sex acts. RTC next month at the [facility] location. Obesity 935667736 E66.9 BMI: 39.7 History of appendectomy 406386609 Z98.890 ~ 8841 [id number] Bryon Smith PA-C [facility] ([facility] [address] [place] [address] 06/04/2019 12:13:22 06/04/2019 14:19:15 Chronic hepatitis C 295163902 B18.2 Genotype 1a 51 y/o C female Dx HCV+ 2005 while attending an inpatient drug rehab program ([place], [place])Risk Factors: +IVDU, +non-profe ssional tattooShe is [...] prescribed by Dr. Theodore Burger at [facility] in [place], [place] for pain. Plan:Have placed a call [...] sign a commitment letter. History of appendectomy 216106922 Z98.890 ~ 1988 Morbid obesity 191388394 E66.01 BMI: 40 [id number] Liza Leal PA-C [facility] [address] [place] [address] 09/11/2019 15:51:28 09/11/2019 16:58:19 Acute bronchitis with bronchospasm 02760851 J20.8 Psoriasis 9119935 L40.0 Urinary incontinence [address] Female str ess incontinence 18481356 N39.3 [id number] Liza Leal PA-C [facility] [address] [place] [address] 11/12/2019 09:16:10 11/13/2019 14:50:18 Candidiasis of mouth 29666931 B37.0 [id number] Liza Leal PA-C [facility] [address] [place] [address] 12/31/2019 09:54:15 01/01/2020 09:02:13 Chronic depression 682027433 F34.1 Candidiasis of mouth 797 47723 B37.0 [id number] Liza Leal PA-C [facility] [address] [place] [address] 02/05/2020 09:35:03 02/05/2020 14:58:49 Cervical radiculopathy 46889357 M54.12 Lumbar radiculopathy 128 591967 M54.16 [id number] Liza Leal PA-C [facility] [address] [place] [address] 03/11/2020 09:34:15 03/11/2020 15:42:44 Osteomyelitis of ankle AND/OR foot 64342610 M86.8X7 Pain of to e of right foot 5661334509 21640 M79.674 Mucous mem brane dryness 588166155 R68.89 Candidiasis of mouth 797 38816 B37.0 Health Concerns Section Related Observation LastModified by Organization Detai ls LastModified Time None Recorded Concern Status LastModified by Organization Details LastModified Time None Recorded Advance Directives Directive N: Payers Encounter Date Sequence Insurance Name Policy Number Policy Hatch Covered Member ID Hatch Member ID Guarantor Name 09/11/2019 1 [place] Roslyn S Levendoski [id number] Roslyn Levendoski 09/11/2019 2 [place] MEDICARE REPLACEMENT PRIMARY) Roslyn Levendoski [id number] Roslyn Levendoski 11/12/2019 1 [place] Roslyn S Levendoski [id number] Roslyn Levendoski 11/12/2019 2 [place] OR [place] REPLACEMENT PRIMARY) Roslyn Levendoski [id number] Roslyn Levendoski 12/31/2019 1 [place] Roslyn S Levendoski [id number] Roslyn Levendoski 12/31/2019 2 [place]PLAC[place] PR[place]) Roslyn Levendoski [id number] Roslyn Levendoski 02/05/2020 1 [place] Roslyn S Levendoski [id number] Roslyn Levendoski 02/05/2020 2 [place] OR [place]IC[place] REPLACEMENT PRIMARY) Roslyn Levendoski [id number] Roslyn Levendoski 03/11/2020 1 [place] Roslyn S Levendoski [id number] Roslyn Levendoski 03/11/2020 2 [place] OR [place]IC[place] REPLACEMENT PRIMARY) Roslyn Levendoski [id number] Roslyn Levendoski Notes Date Note Type Note Provider Name and Address Organization Details Recorded Time 09/11/2019 text/html 54 y/o female presents for routine f/u. No complaints. Liza Leal PA-C Attn: Accounting,[address] [place], [address], [facility] 09/11/2019 16:37:33 11/12/2019 text/html sore throat feels like thrush...has had it before with advair... Liza Leal PA-C Attn: Accounting,[address] [place], [address], [facility] 11/12/2019 14:36:50 12/31/2019 text/html her physician left needs refills.. Liza Leal PA-C Attn: Accounting,[address] [place], [address], [facility] 12/31/2019 17:10:04 02/05/2020 text/html feet and hands getting numb..feet feel likes blocks of wood..hx of sciatica Liza Leal PA-C Attn: Accounting,[address] [place], [address], [facility] 02/05/2020 14:50:25 03/11/2020 text/html pain in great toe ( both feet ) needs xrays...also thrush is returning Liza Leal PA-C Attn: Accounting,[address] [place], [address], [facility] 03/11/2020 15:29:57 OBGyn Episode Ob Episode Information Episode Created Date Number of Fetuses Patient Bloodtype Patient rh Status Prepregnancy Weight lbs Domestic Partner Domestic Partner Phone Father Name Operators School Manager Status 05/22/20 17 1 CLOSED Fetus Data First Name Last Name Admitted to NICU Weight (g) Sex Living Outcome Pediatric Complications Fetus ID Race Codes Race Delivery Type [id number] Geoffrey Calculation Initial Geoffrey Date Initial Exam [...] Domestic Partner Domestic Partner Phone Father Name Operators School Manager Status 05/22/20 17 1 CLOSED Fetus Data First Name Last Name Admitted to NICU Weight (g) Sex Living Outcome Pediatric Complications Fetus ID Race Codes Race Delivery Type F Full Term [id number] Geoffrey Calculation Initial Geoffrey Date Initial Exam [...] Domestic Partner Domestic Partner Phone Father Name Operators School Manager Status 05/22/20 17 1 CLOSED Fetus Data First Name Last Name Admitted to NICU Weight (g) Sex Living Outcome Pediatric Complications Fetus ID Race Codes Race Delivery Type F Full Term [id number] Geoffrey Calculation Initial Geoffrey Date Initial Exam [...]
--- OUTSIDE RECORDS SUMMARY | 2024-08-30 19:45 | XMS_ITS | Encounter Summary ---
Author Organization [facility] Address [address] [place], [place] [address]Le[place] [address] Care Team Providers Care Trestle Mainternance Laborer Name Role Phone Enrique Gandhi MD Primary Care Provider [phone] Anupama Cuba DO Primary Care Provider [phone] Janet You PA-C Primary Care Provider [phone] Reason for Visit * Reason Onset Date Comments MEDICATION REFILL 02/12/2018 Encounter Details Date Type Department Care Team (Late st Contact Info) Description 02/12/2018 Refill [facility] [address] [place] [address] Mary Jo Dukes MD [address] [place] [address] MEDICATION REFILL Social History Tobacco Use Types [...] on filedocumented in this encounter Care Teams Trestle Mainternance Laborer Relationship Specialty Start Date End Date Enrique Gandhi MD [address] [facility] [address] [place] [address] PCP - General Family Medicine 06/20/16 11/02/20 Anupama Cuba DO [address] [place] [address] PCP - General 11/03/20 07/10/22 Janet You PATraceeC [address] [place] [address] PCP - General 07/11/22 documented as of this encounter
--- OUTSIDE RECORDS SUMMARY | 2024-08-30 19:45 | XMS_ITS | Clinical Summary ---
Author Organization [facility] Address [address] [facility] [place] [address] Care Team Providers Care Avionics Electrical Engineer Name Role Phone Janet You PA-C Primary Care Provider [phone] Source Comments [facility],non-owned Affiliates and Associated Physician Practices is amultiple site organization consisting of ambulatory clinics and hospital sitesin [place], [place], [place] and [place]. This disclosure is being madepursuant to the Care Everywhere program and may not contain all information available regarding this patient. Last updated 18.[facility] Allergies No known active allergies Medications [...] 09/25/2017 Pain of left great toe 09/25/2017 Anti-BUILDING CONSTRUCTION ENGINEER antibodies present 11/30/2014 Myalgia and myositis 09/20/2014 [...] 65 05/05/2021 10:31 AM CDT Temperature 36.3 C (97.3 F) 11/08/2020 1:47 PM CDT Respiratory Rate 18 01/31/2015 12:0 4 PM [...] CA SCREENING 1965 MAMMOGRAM 1965 MEDICARE AWV 12 MONTHS 1965 PAP SMEAR 1965 HIV [...] 94 65 - 99 mg/dL [facility] Comment: Fasting reference interval BUN 11 7 - 25 mg/dL [facility] Creatinine 1.08(H) 0.50 - 1.05 mg/dL [facility] Comment: For patients >49 years of age, the reference limit for Creatinine is approximately 13% higher for people identified as -[place] Citizen. eGFR by MDRD 57(L) > OR = [...] 29 U/L [facility] Comment: Test Performed at: [facility] [address] [place] [address] TORSTEN BROWN DO,MPH Blood BLOOD SPECIMEN / Unknown 05/09/2021 8:47 AM CDT 05/09/2021 8:48 AM CDT Regina Deluca FULL TIME-LITHARGE MILL OPERATOR LAB - CHEMIS TRY ORDERABLES [facility] [address] [place] [address] * HEPATITIS C RNA QUANTITATIVE (05/02/2021 8:49 [...] (1.18 Log IU/mL to 8.00 Log IU/mL). The analytical performance characteristics of this assay have been determined by [employer]. The modifications have not been cleared or approved by the FDA. This assay has been validated pursuant to the CLIA regulations and is used for clinical purposes. For more information on this test, go to: http://education.Shicon/faq/OLK58w1 (This link is being provided for informational/ educational purposes only.) REPORT COMMENT: CC DR Lynnette LE Test Performed at: [facility] [address] [place] [address] TORSTEN BROWN DO,MPH 05/02/2021 8:49 AM CDT 05/02/2021 8:49 AM CDT Regina Deluca FULL TIME-LITHARGE MILL OPERATOR LAB - CHEMIS TRY ORDERABLES [facility] [address] [place] [address] from Last 3 Months or Most Recently Relevant to Health Maintenance Care Teams Avionics Electrical Engineer Relationship Specialty Start Date End Date Janet You PATraceeC [address] [place] [address] PCP - General 07/11/22
--- OUTSIDE RECORDS SUMMARY | 2024-08-30 19:45 | XMS_ITS | Encounter Summary ---
Author Organization [facility] Address [address] [place], [place] [address] [address] Care Team Providers Care Teacher Ballet Name Role Phone Enrique Gandhi MD Primary Care Provider [phone] Anupama Cuba DO Primary Care Provider [phone]- [phone] Janet You PA-C Primary Care Provider [phone] Reason for Visit * Reason Onset Date Comments MEDICATION REFILL 01/06/2018 Encounter Details Date Type Department Care Team (Late st Contact Info) Description 01/06/2018 Refill [facility] [address] [place] [address] Mary Jo Dukes MD [address] [id number] MEDICATION REFILL Social History Tobacco Use Types [...] on filedocumented in this encounter Care Teams Teacher Ballet Relationship Specialty Start Date End Date nErique Gandhi MD [address] [facility] [address] [place] [address] PCP - General Family Medicine 06/20/16 11/02/20 Anupama Cuba DO [address] [facility] [address] [place] [address] PCP - General 11/03/20 07/10/22 Janet You PATraceeC [address] [place] [address] PCP - General 07/11/22 documented as of this encounter
--- OUTSIDE RECORDS SUMMARY | 2024-08-30 19:45 | XMS_ITS | Referral Summary ---
Author Organization [facility] Address [address] [place] [address] Care Team Providers Care Human Resources Operations Director Name Role Phone Anupama Cuba MD Primary Care Provider [phone] Encounters Date Type Department Care Team Description 06/24/2024 8:00 AM ALGORITHM DESIGN ENGINEER Office Visit [facility] [address] [place] [address] Indira Freeman MD Coronary artery disease involving paimiut coronary artery of paimiut heart without angina pectoris (Primary Dx); History [...] daily 04/18/20 22 Active adalimumab ([place],CF, Pen Okyt-Ob-Ixoz HS) 80 mg/0.8 mL-40 mg/0.4 mL pen [...] tachycardia 09/07/2022 Coronary artery disease invo lving paimiut coronary artery of paimiut heart without angina pectoris 09/07/2022 History of [...] on file Legal Sex Female 7:28 PM ALGORITHM DESIGN ENGINEER Gender Identity Not on file Sexual Orientation Not on file Last Filed Vital Signs Vital Sign Reading Time Taken Comments Blood Pressure 146/82 06/24/2024 8:01 AM ALGORITHM DESIGN ENGINEER Pulse 61 06/24/2024 8:01 AM ALGORITHM DESIGN ENGINEER Temperature 36.9 C (98.4 F) 11/01/2023 7:40 AM CDT Respiratory Rate 16 11/01/2023 9:28 AM CDT Oxygen Saturation 99% 06/24/2024 8:01 AM ALGORITHM DESIGN ENGINEER Inhaled Oxygen Concentration - - Weight 99.8 kg (220 lb) 06/24/2024 8:01 AM ALGORITHM DESIGN ENGINEER Height 162.6 cm (5' 4 ) 06/24/2024 8:01 AM ALGORITHM DESIGN ENGINEER Body Mass Index 37.76 06/24/2024 8:01 AM ALGORITHM DESIGN ENGINEER Plan of Treatment Not on file Procedures Procedure Name Priority Date/Time Associated Diagnosis Comments POCT LIPID PANEL Routine 06/24/2024 8:02 AM ALGORITHM DESIGN ENGINEER Coronary artery disease involving paimiut coronary artery of paimiut heart without angina pectoris Mixed hyperlipidemia from Last 3 Months Results * POCT lipid panel (06/24/2024 8:02 AM ALGORITHM DESIGN ENGINEER) Cholesterol, POC 162 mg/dL HDL, POC 61 mg/dL Triglycerides, POC 154 mg/dL LDL Cholesterol POC 71 mg/dL Chol/HDL Ratio, POC 1.2 Non-HDL Cholesterol, POC 101 mg/dL Cholesterol Total, POC 162 mg/dL Capillary blood 06/24/2024 8 :02 AM ALGORITHM DESIGN ENGINEER us Ripa Radha Freeman MD POINT OF CARE TEST MCKAYArgelia LESLIE Final Result from Last 3 Months Insurance TNA MEDICARE GOLD IDPA AETNA MEDICARE GOLD IDNV [facility] Advance Directives For more information, please contact: [phone] * Full Code (Latest Code Status on File) Date Activated Date Inactivated Comments 11/01/2023 8:52 AM 11/02/2023 4:37 AM * Full Code Date Activated Date Inactivated Comments 05/29/2023 10:01 AM 05/30/2023 4:39 AM Care Teams Human Resources Operations Director Relationship Specialty Start Date End Date Anupama Cuba MD [address] [place] [address] PCP - General Family Medicine 09/27/22
--- OUTSIDE RECORDS SUMMARY | 2024-08-30 19:45 | XMS_ITS | Data Portability ---
Author Organization [facility], [address] [facility] ([place]) Address [address] [place] [address] Care Team Providers Care Diesel Engine Fitter Name Role Phone ANUPAMA CUBA Primary Care Provider [phone] Assessment No assessment recorded. Plan of Treatment [...] l 0.05 % scalp solution 2023 024 [facility]armacy #[id number], [address] [place], [address], 01/28/2024 12:09:45 calcipotr iene 0.005 % topical ointment 2023 024 [email or web address] [facility]/Pharmacy #[id number], [address] [place], [address], 01/28/2024 12:09:45 Patient TargetsNo targets recorded. Patient InstructionsNo instructions recorded. Reason for Referral None Reported. Results Created Date Observation Date Name Description Value Unit Range Abnormal Flag Note LastModifiedBy Organization Detail LastModifiedTime Result Notes None recorded. Problems Name Problem SNOMED Code Status Onset Date Resolution Date Notes Provider Name and Address Organization Details Recorded Time Psoriasis 8156009 [facility] 01/28/2024 11:29:49 Problem Notes None recorded. Medical Equipment None Reported. Allergies Allergen ID Allergen Name Allergen Category Reaction Reaction Severity Criticality Documentation Date Start Date Code Code System Note Provider Name and Address Organization Details Recorded Time 6021291 fluocinon estevan medicatio n rash Not available Not available 08/14/20232021 4462 RxNorm React ion: Blist ers; Not Available Not Available Not Available 5587581 methotrex ate medicatio n Not available Not available Not available 08/14/20232021 6851 RxNorm React ion: Blist ers; Nause a; Myalg ia; Not Available Not Available Not Available 609774 Product containin g penicilli n (product) medicatio n Not available Not available Not available 08/12/20232005 44711 8001 SNOMED Not Available Not Available Not Available [...] SNOMED-CT Code Diagnosis ICD10 Code Diagnosis Note [id number] YANDY GARCIA MD [facility] [address] [place] [address] 01/28/2024 11:20:03 01/28/2024 11:44:29 Psoriasis 0823334 L40.9 Chronic plaque psoriasis, controlled with humira [...] Member ID Guarantor Name 01/28/2024 1 [employer] [id number] Adria Pardo [id number] Roslyn Sanz Char 01/28/2024 2 MEDICAID-[place]: [place] [employer]PARTMENT OF PUBLIC AID Roslyn Laoalli [id number] Roslyn Sanz Char Notes Date Note Type [...] was 12/13/22. YANDY GARCIA MD [address] [place] [address], [id number], [facility] 01/28/2024 12:05:06 OBGyn Episode No OBEpisode recorded.
--- OUTSIDE RECORDS SUMMARY | 2024-08-30 19:45 | XMS_ITS | Referral Summary ---
Author Organization [facility] Address [address] [facility] [place] [address] Care Team Providers Care Hearing Aid Assistant Name Role Phone Janet You PA-C Primary Care Provider [phone] Source Comments [facility],non-owned Affiliates and Associated Physician Practices is amultiple site organization consisting of ambulatory clinics and hospital sitesin [place], [place], [place] and [place]. This disclosure is being madepursuant to the Care Everywhere program and may not contain all information available regarding this patient. Last updated 18.[facility] Allergies No known active allergies Medications * [...] 09/25/2017 Pain of left great toe 09/25/2017 Anti-INVESTMENT COUNSELOR antibodies present 11/30/2014 Myalgia and myositis 09/20/2014 [...] approximately 13% higher for people identified as -Scottish. eGFR by MDRD 57(L) > OR = [...] 29 U/L [facility] Comment: Test Performed at: [facility] [address] [place] [address] TORSTEN BROWN DO,MPH Blood BLOOD SPECIMEN / Unknown 05/09/2021 8:47 AM CDT 05/09/2021 8:48 AM CDT Regina Deluca REHAB TECHNICIAN-CUSTOMER CARE SPECIALIST LAB - CHEMIS TRY ORDERABLES [facility] [address] [place] [address] * HEPATITIS C RNA QUANTITATIVE (05/02/2021 8:49 [...] of this assay have been determined by [facility]. The modifications have not been cleared or approved by the FDA. This assay has been validated pursuant to the CLIA regulations and is used for clinical purposes. For more information on this test, go to: http://education.58.com/faq/LLM23n3 (This link is being provided for informational/ educational purposes only.) REPORT COMMENT: CC DR Lynnette LE Test Performed at: [facility] [address] [place] [address] TORSTEN BROWN DO,MPH 05/02/2021 8:49 AM CDT 05/02/2021 8:49 AM CDT Regina Deluca REHAB TECHNICIAN-CUSTOMER CARE SPECIALIST LAB - CHEMIS TRY ORDERABLES Performing Organization Address City/State/[facility] Co de Phone Number [facility] [address] [place] [address] from Last 3 Months or Most Recently Relevant to Health Maintenance Care Teams Hearing Aid Assistant Relationship Specialty Start Date End Date Janet You, PATraceeC [address] [place] [address] PCP - General 07/11/22
--- OUTSIDE RECORDS SUMMARY | 2024-08-30 19:45 | XMS_ITS | Patient Health Summary ---
Author Organization [facility] Address [address] [place] [address] Care Team Providers Care Bar Host/Hostess Name Role Phone Janet You PA-C Primary Care Provider [phone] Note from [facility],non-owned Affiliates and Associated Physician Practices is amultiple site organization consisting of ambulatory clinics and hospital sitesin [place], [place], [place] and [place]. This disclosure is being madepursuant to the Care Everywhere program and may not contain all information available regarding this patient. Last updated 18.[facility] Allergies No known active allergies Medications [...] 09/25/2017 Pain of left great toe 09/25/2017 Anti-CARDIOLOGY MANAGER antibodies present 11/30/2014 Myalgia and myositis [...] hepatitis C without hepatic coma (HCC) * [place] LIVER ELASTOGRAPHY(Performed 11/08/2020) Performed for Chronic hepatitis [...] * SS-A/SS-B (SJOGREN'S) ANTIBODY PANEL(Performed 11/25/2014) * CARDIOLOGY MANAGER ANTIBODY(Performed 11/25/2014) * SCLERODERMA 70 (SCL) ANTIBODY(Performed [...] Comment: REPORT COMMENT: CC: Test Performed at: [facility] [id number] [place] [address] TORSTEN BROWN DO,MPH Blood BLOOD SPECIMEN / Unknown 05/09/2021 8:47 AM CDT 05/09/2021 8:48 AM CDT Regina Deluca STRADDLE TRUCK OPERATOR-CORN CUTTER LAB - HEMATO LOGY ORDERABLES [facility] [address] [place] [address] * (ABNORMAL) COMPREHENSIVE METABOLIC PANEL (05/09/2021 8:47 [...] approximately 13% higher for people identified as -Mexican. eGFR by MDRD 57(L) > OR = [...] 29 U/L [facility] Comment: Test Performed at: [facility] [address] [place] [address] TORSTEN BROWN DO,MPH Blood BLOOD SPECIMEN / Unknown 05/09/2021 8:47 AM CDT 05/09/2021 8:48 AM CDT Regina Deluca APRN-CORN CUTTER LAB - CHEMIS TRY ORDERABLES Performing Organization Address [facility] de Phone Number [facility] [address] [place] [address] * (ABNORMAL) METHADONE BLOOD QUANTITATIVE (05/02/2021 8:49 AM CDT) [facility] Methadone 1428(H) 100 - 400 ng/mL [facility] Comment: This result was generated using LC-MS/MS; an equivalent method to GC/MS. Potentially Toxic Range: >= 2000 ng/mL This test was developed and its analytical performance characteristics have been determined by [employer]. It has not been cleared or approved by the U.S. Food and Drug Administration. This assay has been validated pursuant to the CLIA regulations and is used for clinical purposes. Test Performed at: [facility] [employer] [address] SHAWANDA WEN MD,PHD 05/02/2021 8:49 AM CDT 05/02/2021 8:49 AM CDT Regina Deluca APRN-CORN CUTTER LAB - TOXICO LOGY ORDERABLES Performing Organization Address [facility] de Phone Number [facility] [address] [place] [address] * HEPATITIS C RNA QUANTITATIVE (05/02/2021 8:49 AM CDT) Only the most recent of3 resultswithin the time period is included. [facility] Hepatitis C Virus RNA, Quantitative Real Time PCR <15 NOT DETECTED NOT DETECTED IU/mL [facility] Hepatitis C Virus RNA, Quantitative Real Time PCR <1.18 NOT DETECTED NOT DETECTED Log IU/mL [facility] Comment: This test was performed using Real-Time Polymerase Chain Reaction. Reportable Range: 15 IU/mL to 100,000,000 IU/mL (1.18 Log IU/mL to 8.00 Log IU/mL). The analytical performance characteristics of this assay have been determined by [employer]. The modifications have not been cleared or approved by the FDA. This assay has been validated pursuant to the CLIA regulations and is used for clinical purposes. For more information on this test, go to: http://education.[employer]faq/OHV96n3 (This link is being provided for informational/ educational purposes only.) REPORT COMMENT: CC DR Lynnette LE Test Performed at: [facility] [address] [place] [address] TORSTEN BROWN DO,MPH 05/02/2021 8:49 AM CDT 05/02/2021 8:49 AM CDT Regina Deluca STRADDLE TRUCK OPERATOR-CORN CUTTER LAB - CHEMIS TRY ORDERABLES Performing Organization Address [facility] Co de Phone Number [facility] [address] [place] [address] * HCV RNA PCR QNT (EXTERNAL RESULT ENTRY) (05/02/2021) [facility] HCV RNA Quantitative RT-PCR (EXTERNAL RESULT) not detected [facility] Blood BLOOD SPECIMEN / Unknown 05/02/2021 Historical Provider LAB - CHEMISTRY O RDERABLES Performing Organization Address City/[facility]/ZIP Co de Phone Number [facility] [address] [place] [address], [facility] [phone] * US ABDOMEN LIMITED (12/15/2020 2:50 PM CDT) Anatomical Region Laterality Modality Abdomen Ultrasound 12/15/2020 2:31 PM CDT Impressions 12/15/2020 3:22 PM CDT IMPRESSION: 1.Mildly coarsened hepatic parenchymal echotexture, consistent with chronic liver disease. No evidence of focal hepatic observations to suggest hepatocellular carcinoma. 2.Normal gallbladder. Dictated by Pablo Carranza MD (radiology physician) This report was approved by Pablo Carranza Dr on 12/15/2020 3:04 PM . I, Dr. LUIS EDUARDO DUNBAR M.D. have personally reviewed and interpreted this examination/study. This report was electronically signed by LUIS EDUARDO DUNBAR M.D. on 12/15/2020 3:22 PM . Narrative 12/15/2020 3:22 [...] 2.Normal gallbladder. Dictated by Pablo Carranza MD (radiology physician) This report was approved by Pablo Carranza Dr on 12/15/2020 3:04 PM . I, Dr. LUIS EDUARDO DUNBAR M.D. have personally reviewed and interpreted this examination/study. This report was electronically signed by LUIS EDUARDO DUNBAR M.D. on12/15/2020 3:22 PM . Regina Deluca STRADDLE TRUCK OPERATOR-CORN CUTTER US ORDERABLE S * PROC FIBROSCAN (11/08/2020 2:02 PM CDT) Narrative Ephraim Falk MD - 11/08/2020 2:02 PM CDT Ephraim Falk MD 11/08/2020 2:47 PM Diagnosis: Hepatitis C RN verified patient not , no implanted devices and NPO for prior 3 hours. Vital signs taken, procedure explained and consent signed. Date of Exam: 11/08/2020 Liver Stiffness: (LSM, kPa) median: 11.1 IQR (interquartile range): 2.3 IQR/Median% (ideally < 30%): 21 CAP (controlled attenuation parameter): 258 Technical Difficulty: None Ordering Provider: Regina Deluca NP Phone Fax Fibroscan interpretation: I have personally [...] based on the following published data: Cristy MENDES, Mely M, Nickie M, et al. Accuracy of FibroScan controlled attenuation parameter and liver stiffness measurement in assessing steatosis and fibrosis in patients with nonalcoholic fatty liver disease. Gastroenterology 2019;156:7441-7901. Rachel MS, Loida R, Van Gabriel ML, [...] FIB4 score (Jermainuke et al. Hepatology Communications 2019;3:1667-4654) or NAFLD Fibrosis score (Raza et al. Clinical Gastroenterology and Hepatology 2019;17:2314-3861. from routine clinical data. 3. Liver stiffness [...] change as additional supporting data becomes available. [email or web address] Regina UMÑAA PROCEDURE/OR NOR SURGICAL ORDERABLES * PT-INR [facility] (10/11/2020 3:01 PM CDT) PT 13.6 12.1 - 14.8 Seconds 10/11/2020 4:09 PM CDT [facility] INR 1.1 See Comment 10/11/2020 4:09 PM CDT [facility] Comment:The suggested therap eutic range for standard coumadin (warfarin) therapy is an INR of 2.0-3.0. For high-risk patients (Mechanical Mitral Valve Prosthesis, etc.), the suggested prophylactic therapeutic range is an INR of 2.5-3.5. Blood BLOOD SPECIMEN / Unknown Lab Venipuncture / Unknown 10/11/2020 3:01 PM CDT 10/11/2020 3:59 PM CDT Regina Deluca APRN-CORN CUTTER LAB - COAGUL ATION ORDERABLES [facility] [address] [place] [address], [facility] [phone] * HEPATITIS C GENOTYPE (10/11/2020 3:01 PM CDT) Hepatitis C Genotype 1a or 1b 10/15/2020 9:53 AM CDT [employer] ([facility]) Comment: Cannot be further subtyped into Type 1a or Type 1b due to high conservation of the 5' untranslated region of the HCV genome. In addition, Type 6 virus may be misclassified as Type 1 in some cases. The Hepatitis C Virus High-Resolution Genotype by Sequencing test ([employer] test code [id number]) provides a higher level of subtype resolution. INTERPRETIVE INFORMATION: Hepatitis C Genotyping Hepatitis C Viral RNA is tested using reverse geotechnical engineer polymerase chain reaction (RT-PCR) to amplify a specific portion of the 5' untranslated region (5' UTR) of the viral genome. The amplified nucleic acid is sequenced bi-directionally using dye-terminator chemistry ([employer]). Sequencing data is compared to a database [...] developed and its performance characteristics determined by [employer]. It has not been cleared or approved by the US Food and Drug Administration. This test was performed in a CLIA certified laboratory and is intended for clinical purposes. Performed By: [facility] [address] [place] [address] Ramp Supervisor: Roslyn Mcneal MD Blood BLOOD SPECIMEN / Unknown Lab Venipuncture / Unknown 10/11/2020 3:01 PM CDT 10/11/2020 3:53 PM CDT Regina Deluca APRN-CORN CUTTER LAB - CHEMIS TRY ORDERABLES [facility] ([facility]) [address] [place] [address] * HEPATITIS B SURFACE ANTIBODY (10/11/2020 3:01 PM CDT) Hepatitis B Virus Surface Antibody Non-react nishi Non-react nishi 10/11/2020 5:20 PM CDT [facility] Comment: < 8 mIU/mL Hepatitis B surface Antibody (HBsAb). Nonreactive for HBsAb - individual is considered not immune to Hepatitis B Virus infection. Hepatitis B Surface Antibody Quantitative 7.7 <8.0 mIU/mL 10/11/2020 5:20 PM CDT [facility] Comment: Hepatitis B Surface Antibody Numeric Result Interpretation: Nonreactive: <8.0 mIU/mL Indeterminate: 8.0 - 12.0 mIU/mL Reactive: >12.0 mIU/mL Blood BLOOD SPECIMEN / Unknown Lab Venipuncture / Unknown 10/11/2020 3:01 PM CDT 10/11/2020 3:53 PM CDT Regina Deluca APRN-CORN CUTTER LAB - CHEMIS TRY ORDERABLES Performing Organization Address City/[facility]/ZIP Co de Phone Number [facility] [address] [place] [address], [place] [phone] * HEPATITIS B CORE ANTIBODY (10/11/2020 3:01 PM CDT) HBc Antibody Total Non-reacti ve Non-reacti ve 10/11/2020 5:26 PM CDT [facility] Blood BLOOD SPECIMEN / Unknown Lab Venipuncture / Unknown 10/11/2020 3:01 PM CDT 10/11/2020 3:53 PM CDT Regina Deluca APRN-CORN CUTTER LAB - CHEMIS TRY ORDERABLES Performing Organization Address [facility] Co de Phone Number [facility] [address] [place] [address], [place] [phone] * HEPATITIS B SURFACE ANTIGEN W RFLX CONFIRMATION (10/11/2020 3:01 PM CDT) Only the most recent of2 resultswithin the time period is included. Hepatitis B Virus Surface Antigen Non-reacti ve Non-reacti ve 10/11/2020 5:26 PM CDT [facility] Blood BLOOD SPECIMEN / Unknown Lab Venipuncture / Unknown 10/11/2020 3:01 PM CDT 10/11/2020 3:53 PM CDT Regina UMAÑA LAB - CHEMIS TRY ORDERABLES Performing Organization Address City/[facility]/ZIP Co de Phone Number [facility] [address] [place] [address], [place] [phone] * LAB HISTORICAL RESULTS-ONBASE (04/09/2017) Only the most recent of2 resultswithin the time period is included. 04/09/2017 Historical Provider LAB - CHEMISTRY O RDERABLES Performing Organization Address City/[facility]/ZIP Co de Phone Number [facility] [address] [place], [place] [facility], [place] * HEPATITIS C QUANT RT PCR GRAPHICAL (06/12/2016 10:23 AM EMERGENCY MEDICAL SERVICE MANAGER) Pathologist [facility] Hepatitis C Virus RNA IU/mL [id number] IU/mL [facility] ([facility]) Hepatitis C Virus RNA IU/mL 6.033 log10 IU/mL [facility] ([facility]) Test Information [facility] ([facility]) Comment:The quantitative ran ge of this assay is 15 IU/mL to 100 million IU/mL. 06/12/2016 10:2 3 AM EMERGENCY MEDICAL SERVICE MANAGER 06/12/2016 Narrative [facility] ([facility]) - 06/14/2016 3:19 PM EMERGENCY MEDICAL SERVICE MANAGER Performed at: [address] [id number] Payroll Associate: Torsten Benson MD, Phone: [phone] Mary Jo Dukes MD LAB - CHEMISTR Y ORDERABLES Performing Organization Address [facility] Co de Phone Number [facility] ([facility]) * (ABNORMAL) RHEUMATOID FACTOR BLOOD QUANTITATIVE (06/12/2016 10:23 AM EMERGENCY MEDICAL SERVICE MANAGER) Only the most recent of2 resultswithin the time period is included. [facility] RA latex Turbidimetry 25.2(H) 0.0 - 13.9 IU/mL [facility] ([facility]) 06/12/2016 10:2 3 AM EMERGENCY MEDICAL SERVICE MANAGER 06/12/2016 Narrative [facility] ([facility]) - 06/13/2016 7:12 AM EMERGENCY MEDICAL SERVICE MANAGER Performed at: [address] [id number] Payroll Associate: Matt West PhD, Phone: [phone] Mary Jo Dukes MD LAB - CHEMISTR Y ORDERABLES Performing Organization Address City/[facility] Co de Phone Number [facility] ([facility]) * (ABNORMAL) C-REACTIVE PROTEIN (06/12/2016 10:23 AM EMERGENCY MEDICAL SERVICE MANAGER) Only the most recent of2 resultswithin the time period is included. [facility] C-Reactive Protein 12.6(H) 0.0 - 4.9 mg/L [facility] (BEAKER) 06/12/2016 10:2 3 AM EMERGENCY MEDICAL SERVICE MANAGER 06/12/2016 Narrative [facility] (KAREN) - 06/13/2016 7:12 AM EMERGENCY MEDICAL SERVICE MANAGER Performed at: [address] [place] [id number] Payroll Associate: Matt West PhD, Phone: [phone] Mary Jo Dukes MD LAB - CHEMISTR Y ORDERABLES [facility] ([facility]) * (ABNORMAL) SS-A/SS-B (SJOGRENS) ANTIBODY PANEL (06/12/2016 10:23 AM EMERGENCY MEDICAL SERVICE MANAGER) Only the most recent of2 resultswithin the time period is included. Sjogren's Antibodies (SSA) <0.2 0.0 - 0.9 AI [facility] (BEAKER) Sjogren's Antibodies (SSB) 1.6(H) 0.0 - 0.9 AI [facility] 06/12/2016 10:2 3 AM EMERGENCY MEDICAL SERVICE MANAGER 06/12/2016 Narrative [facility] (BEMARCY) - 06/13/2016 3:13 PM EMERGENCY MEDICAL SERVICE MANAGER Performed at: [address] [place] [address] [id number] Payroll Associate: Matt West PhD, Phone: [phone] Mary Jo Dukes MD LAB - CHEMISTR Y ORDERABLES [facility] (KAREN) * ALDOLASE (06/12/2016 10:23 AM EMERGENCY MEDICAL SERVICE MANAGER) Aldolase 5.1 3.3 - 10.3 U/L [facility] 06/12/2016 10:2 3 AM EMERGENCY MEDICAL SERVICE MANAGER 06/12/2016 Narrative [facility] (BEAKER) - 06/13/2016 3:13 PM EMERGENCY MEDICAL SERVICE MANAGER Performed at: [address] [place] [address] [id number] Payroll Associate: Matt West PhD, Phone: [phone] Mary Jo Dukes MD LAB - CHEMISTR Y ORDERABLES [facility] ([facility]) * LDH BLOOD (06/12/2016 10:23 AM EMERGENCY MEDICAL SERVICE MANAGER) Pathologist [facility] LDH Total 209 119 - 226 IU/L [facility] ([facility]) 06/12/2016 10:2 3 AM EMERGENCY MEDICAL SERVICE MANAGER 06/12/2016 [facility] - 06/13/2016 7:12 AM EMERGENCY MEDICAL SERVICE MANAGER Performed at: [address] [place] [address] [id number] Payroll Associate: Matt West PhD, Phone: [phone] Mary Jo Dukes MD LAB - CHEMISTR Y ORDERABLES Performing Organization Address City/[facility]/ZIP Co de Phone Number [facility] ([facility]) * GGT (06/12/2016 10:23 AM EMERGENCY MEDICAL SERVICE MANAGER) [facility] GGT 29 0 - 60 IU/L [facility] ([facility]) 06/12/2016 10:2 3 AM EMERGENCY MEDICAL SERVICE MANAGER 06/12/2016 Narrative [facility] ([facility]) - 06/13/2016 7:12 AM EMERGENCY MEDICAL SERVICE MANAGER Performed at: [address] [place] [address] [id number] Payroll Associate: Matt West PhD, Phone: [phone] Mary Jo Dukes MD LAB - CHEMISTR Y ORDERABLES [facility] ([facility]) * CK BLOOD (06/12/2016 10:23 AM EMERGENCY MEDICAL SERVICE MANAGER) Only the most recent of2 resultswithin the time period is included. [facility] CK Total 54 24 - 173 U/L [facility] (BEAKER) 06/12/2016 10:2 3 AM EMERGENCY MEDICAL SERVICE MANAGER 06/12/2016 Narrative [facility] (BEAKER) - 06/13/2016 7:12 AM EMERGENCY MEDICAL SERVICE MANAGER Performed at: [address] [place] [address] [id number] Payroll Associate: Matt West PhD, Phone: [phone] Mary Jo Dukes MD LAB - CHEMISTR Y ORDERABLES Performing Organization Address City/[facility]/ZIP Co de Phone Number [facility] * (ABNORMAL) URINALYSIS MICROSCOPIC ONLY REFLEXED (11/25/2014 1:25 PM CDT) Pathologist [facility] WBC, UA 0-5 0 - 5 /hpf [facility] (BEAKER) RBC UA 0-2 0 - 2 /hpf [facility] (BEAKER) Epithelial Cells (non renal) 0-10 0 - 10 /hpf [facility] (BEAKER) Crystals Present(A) N/A [facility] (BEAKER) Crystal Type Calcium Oxalate N/A [facility] (BEAKER) Mucus UA Present Not Estab. [facility] (BEAKER) Bacteria UA None seen None seen/Few [facility] (BEAKER) 11/25/2014 1:25 PM CDT 11/25/2014 6:04 PM CDT Narrative [facility] (BEAKER) - 11/26/2014 7:19 AM CDT Performed at: [address] [place] [address] [id number] Payroll Associate: Yovani Davis PhD, Phone: [phone] Mary Jo Dukes MD LAB - URINALYS IS ORDERABLES Performing Organization Address City/[facility]/ZIP Co de Phone Number [facility] * URINALYSIS W/MICROSCOPIC NO CULTURE (11/25/2014 1:25 PM CDT) Pathologist [facility] Specific [place] 1.015 1.005 - 1.030 [facility] (BEAKER) pH Urine 6.0 5.0 - 7.5 [facility] (BEAKER) Color UA Yellow Yellow H [facility] (BEAKER) Appearance Clear Clear H [facility] (BEAKER) Leukocyte Esterase Negative Negative [facility] (BEAKER) Protein UA Negative Negative/Tra ce [facility] (BEAKER) Glucose UA Negative Negative [facility] (BEAKER) Ketone UA Negative Negative [facility] (BEAKER) Occult Blood Negative Negative [facility] (BEAKER) Bilirubin Negative Negative [facility] (BEAKER) Urobilinogen Semi-Qn 0.2 0.0 - 1.9 mg/dL [facility] (BEAKER) Nitrite UA Negative Negative [facility] (BEAKER) Microscopic Examination [facility] (BEAKER) Comment:Microscopic follows if indicated. Microscopic Examination See below: [facility] (BEAKER) Comment:Microscopic was art cated and was performed. Urine specimen (specimen) URINE SPECIMEN OBTAINED BY CLEAN CATCH PROCEDURE / Unknown 11/25/2014 1:25 PM CDT 11/25/2014 6:04 PM CDT Narrative [facility] ([facility] - 11/26/2014 7:19 AM CDT Performed at: [address] [place] [address] [id number] Payroll Associate: Yovani Davis PhD, Phone: [phone] Mary Jo Dukes MD LAB - URINALYS IS ORDERABLES [facility] ([facility] * URIC ACID BLOOD (11/25/2014 1:25 PM CDT) Uric acid 5.9 2.5 - 7.1 mg/dL [facility] (BEAKER) Comment:Therapeutic target f or gout patients: <6.0 Blood specimen (specimen) BLOOD SPECIMEN / Unknown 11/25/2014 1:25 PM CDT 11/25/2014 6:04 PM CDT Narrative [facility] ([facility]) - 11/26/2014 7:19 AM CDT Performed at: [address] [place] [address] [id number] Payroll Associate: Yovani Davis PhD, Phone: [phone] Mary Jo Dukes MD LAB - CHEMISTR Y ORDERABLES Performing Organization Address City/[facility] Co de Phone Number [facility]) * LAWRENCE (SM) ANTIBODY NEVA (11/25/2014 1:25 PM CDT) Lawernce Antibody <0.2 0.0 - 0.9 AI [facility]) Blood specimen (specimen) BLOOD SPECIMEN / Unknown 11/25/2014 1:25 PM CDT 11/25/2014 6:04 PM CDT Narrative [facility]) - 11/26/2014 3:21 PM CDT Performed at: [address] [place] [address] [id number] Payroll Associate: Yovani Davis PhD, Phone: [phone] Mary Jo Dukes MD LAB - CHEMISTR Y ORDERABLES Performing Organization Address [facility] Co de Phone Number [facility]) * (ABNORMAL) CARDIOLOGY MANAGER ANTIBODY (11/25/2014 1:25 PM CDT) CARDIOLOGY MANAGER Antibody 1.0(H) 0.0 - 0.9 AI [facility]) Blood specimen (specimen) BLOOD SPECIMEN / Unknown 11/25/2014 1:25 PM CDT 11/25/2014 6:04 PM CDT Narrative [facility]) - 11/26/2014 3:21 PM CDT Performed at: [address] [place] [address] [id number] Payroll Associate: Yovani Davis PhD, Phone: [phone] Mary Jo Dukes MD LAB - CHEMISTR Y ORDERABLES Performing Organization Address City/[facility]/ZIP Co de Phone Number [facility] ([facility]) * CRISS BLOOD SCREEN W/REFLEX TITER (11/25/2014 1:25 PM CDT) CRISS IFA Negative [facility] ([facility]) Comment: Negative <1:80 Borderline 1:80 Positive >1:80 Blood specimen (specimen) BLOOD SPECIMEN / Unknown 11/25/2014 1:25 PM CDT 11/25/2014 6:04 PM CDT Narrative [facility] ([facility]) - 11/26/2014 3:21 PM CDT Performed at: [address] [place] [address] [id number] Payroll Associate: Yovani Davis PhD, Phone: [phone] Mary Jo Dukes MD LAB - CHEMISTR Y ORDERABLES Performing Organization Address [facility] Co de Phone Number [facility] ([facility]) * HLA TYPING B27 (11/25/2014 1:25 PM CDT) HLA-B27 Positive [facility] ([facility]) Comment: HLA-B*27 Positive This patient is positive for HLA-B*27. This procedure rules out the B*27:06 and 27:09 alleles, which the literature suggests are not associated with spondyloarthropathies. HLA Lab CLIA ID Number [id number] This test was performed using PCR (Polymerase Chain Reaction)/SSOP (Sequence Specific Oligonucleotide Probes) technique. SBT (Sequence Based Typing) and/or SSP (Sequence Specific Primers) may be used as supplemental methods when necessary. Please contact [facility] Customer Service at if you have any questions. Director of [facility] Laboratory Dr Fredis Pierson, PhD Blood specimen (specimen) BLOOD SPECIMEN / Unknown 11/25/2014 1:25 PM CDT 11/25/2014 6:04 PM CDT Narrative [facility] - 11/30/2014 3:24 PM CDT Performed at: [address] [place] [address] [id number] Payroll Associate: Fredis Pierson PhD, Phone: [phone] Mary Jo Dukes MD LAB - CHEMISTR Y ORDERABLES Performing Organization Address [facility] Co de Phone Number [facility] ([facility]) * HISTONE ANTIBODY (11/25/2014 1:25 PM CDT) [facility] Histone Antibody 0.8 0.0 - 0.9 Units [facility] ([facility]) Comment: Negative <1.0 Weak Positive 1.0 - 1.5 Moderate Positive 1.6 - 2.5 Strong Positive >2.5 Blood specimen (specimen) BLOOD SPECIMEN / Unknown 11/25/2014 1:25 PM CDT 11/25/2014 6:04 PM CDT Narrative [facility] ([facility]) - 11/30/2014 3:24 PM CDT Performed at: [address] [place] [address] [id number] Payroll Associate: Torsten Benson MD, Phone: [phone] Mary Jo Dukes MD LAB - CHEMISTR Y ORDERABLES Performing Organization Address [facility] de Phone Number [facility] ([facility]) * (ABNORMAL) COMPLEMENT TOTAL (11/25/2014 1:25 PM CDT) [facility] Complement Total CH50 >62(H) 42 - 62 U/mL [facility]) Comment:Please note refere nce interval change Blood specimen (specimen) BLOOD SPECIMEN / Unknown 11/25/2014 1:25 PM CDT 11/25/2014 6:04 PM CDT Narrative [facility] ([facility]) - 11/27/2014 7:17 AM CDT Performed at: [address] [place] [address] [id number] Payroll Associate: Yovani Davis PhD, Phone: [phone] Mary Jo Dukes MD LAB - CHEMISTR Y ORDERABLES Performing Organization Address City/[facility] Co de Phone Number [facility]) * SCLERODERMA 70 (SCL) ANTIBODY (11/25/2014 1:25 PM CDT) Antiscleroderma -70 Antibody <0.2 0.0 - 0.9 AI [facility]) Blood specimen (specimen) BLOOD SPECIMEN / Unknown 11/25/2014 1:25 PM CDT 11/25/2014 6:04 PM CDT Narrative [facility] ([facility]) - 11/26/2014 3:21 PM CDT Performed at: [address] [place] [address] [id number] Payroll Associate: Yovani Davis PhD, Phone: [phone] Mary Jo Dukes MD LAB - CHEMISTR Y ORDERABLES Performing Organization Address [facility] Co de Phone Number [facility]) * DNA ANTIBODY DOUBLE STRANDED (11/25/2014 1:25 PM CDT) dsDNA Antibody 7 0 - 9 IU/mL [facility]) Comment: Negative <5 Equivocal 5 - 9 Positive >9 Blood specimen (specimen) BLOOD SPECIMEN / Unknown 11/25/2014 1:25 PM CDT 11/25/2014 6:04 PM CDT Narrative [facility]) - 11/26/2014 3:21 PM CDT Performed at: [address] [place] [address] [id number] Payroll Associate: Yovani Davis PhD, Phone: [phone] Mary Jo Dukes MD LAB - HEMATOLO GY ORDERABLES Performing Organization Address [facility] Co de Phone Number [facility]) * CYCLIC CITRUL PEPTIDE AB IGG (CCP) (11/25/2014 1:25 PM CDT) Cyclic Citrullinated Peptide Antibody 6 0 - 19 units [facility]) Comment: Negative <20 Weak positive 20 - 39 Moderate positive 40 - 59 Strong positive >59 Blood specimen (specimen) BLOOD SPECIMEN / Unknown 11/25/2014 1:25 PM CDT 11/25/2014 6:04 PM CDT Narrative [facility] ([facility]) - 11/27/2014 7:17 AM CDT Performed at: [address] [place] [address] [id number] Payroll Associate: Torsten Benson MD, Phone: [phone] Mary Jo Dukes MD LAB - CHEMISTR Y ORDERABLES [facility] ([facility] * ERYTHROCYTE SEDIMENTATION RATE (11/25/2014 1:25 PM CDT) Pathologist [facility] Erythrocyte Sedimentation Rate Westergren 15 0 - 32 mm/hr [facility] ([facility] Blood specimen (specimen) BLOOD SPECIMEN / Unknown 11/25/2014 1:25 PM CDT 11/25/2014 6:04 PM CDT Narrative [facility] ([facility]) - 11/26/2014 7:19 AM CDT Performed at: [address] [place] [address] [id number] Payroll Associate: Yovani Davis PhD, Phone: [phone] Mary Jo Dukes MD LAB - HEMATOLO GY ORDERABLES [facility] * CBC W/O DIFFERENTIAL (11/25/2014 1:25 PM CDT) WBC 4.9 3.4 - 10.8 x10E3/uL [facility] ([facility]) RBC 4.08 3.77 - 5.28 x10E6/uL [facility] ([facility]) Hemoglobin 12.0 11.1 - 15.9 g/dL [facility] ([facility]) Hematocrit 34.9 34.0 - 46.6 % [facility] ([facility]) MCV 86 79 - 97 fL [facility] ([facility]) MCH 29.4 26.6 - 33.0 pg [facility] ([facility] MCHC 34.4 31.5 - 35.7 g/dL [facility] ([facility] RDW-CV 14.1 12.3 - 15.4 % [facility] ([facility]) Platelet 251 150 - 379 x10E3/uL [facility] ([facility]) Blood specimen (specimen) BLOOD SPECIMEN / Unknown 11/25/2014 1:25 PM CDT 11/25/2014 6:04 PM CDT Narrative [facility] ([facility]) - 11/26/2014 7:19 AM CDT Performed at: [address] [place] [address] [id number] Payroll Associate: Yovani Davis PhD, Phone: [phone] Mary Jo Dukes MD LAB - HEMATOLO GY ORDERABLES Performing Organization Address City/[facility]/ZIP Co de Phone Number [facility] ([facility]) * COMPLEMENT C4 (11/25/2014 1:25 PM CDT) Complement C4 36 9 - 36 mg/dL Adult [facility] ([facility]) Blood specimen (specimen) BLOOD SPECIMEN / Unknown 11/25/2014 1:25 PM CDT 11/25/2014 6:04 PM CDT Narrative [facility] ([facility]) - 11/26/2014 7:19 AM CDT Performed at: [address] [place] [address] [id number] Payroll Associate: Yovani Davis PhD, Phone: [phone] Mary Jo Dukes MD LAB - SEROLOGY ORDERABLES Performing Organization Address City/[facility]/ZIP Co de Phone Number [facility] ([facility]) * TSH (11/25/2014 1:25 PM CDT) TSH 2.570 0.450 - 4.500 uIU/mL [facility] ([facility]) Blood specimen (specimen) BLOOD SPECIMEN / Unknown 11/25/2014 1:25 PM CDT 11/25/2014 6:04 PM CDT Narrative [facility] ([facility]) - 11/26/2014 7:19 AM CDT Performed at: [address] [place] [address] [id number] Payroll Associate: Yovani Davis PhD, Phone: [phone] Mary Jo Dukes MD LAB - CHEMISTR Y ORDERABLES Performing Organization Address [facility] de Phone Number [facility] * T4 FREE (11/25/2014 1:25 PM CDT) [facility] T4 Free 0.85 0.82 - 1.77 ng/dL [facility]) Blood specimen (specimen) BLOOD SPECIMEN / Unknown 11/25/2014 1:25 PM CDT 11/25/2014 6:04 PM CDT Narrative [facility]) - 11/26/2014 7:19 AM CDT Performed at: [address] [place] [address] [id number] Payroll Associate: Yovani Davis PhD, Phone: [phone] Mary Jo Dukes MD LAB - CHEMISTR Y ORDERABLES Performing Organization Address [facility] de Phone Number [facility]) * (ABNORMAL) HEPATITIS C ANTIBODY (11/25/2014 1:25 PM CDT) [facility] Hepatitis C Virus Antibody >11.0(H) 0.0 - 0.9 s/co ratio [facility]) Comment: Negative: < 0.8 Indeterminate: 0.8 - 0.9 Positive: > 0.9 In order to reduce the incidence of a false positive result, the CDC recommends that all s/co ratios between 1.0 and 10.9 be confirmed by a more specific supplemental or PCR testing. [facility] offers HCV Ab w/Reflex to Verification test #[id number]. Blood specimen (specimen) BLOOD SPECIMEN / Unknown 11/25/2014 1:25 PM CDT 11/25/2014 6:04 PM CDT Narrative [facility] ([facility]) - 11/26/2014 7:19 AM CDT Performed at: [facility] [id number] Payroll Associate: Yovani Davis PhD, Phone: [phone] Mary Jo Dukes MD LAB - CHEMISTR Y ORDERABLES Performing Organization Address City/[facility] Co de Phone Number [facility] ([facility]) * (ABNORMAL) COMPLEMENT C3 (11/25/2014 1:25 PM CDT) Complement C3 183(H) 90 - 180 mg/dL Adult [facility] ([facility]) Blood specimen (specimen) BLOOD SPECIMEN / Unknown 11/25/2014 1:25 PM CDT 11/25/2014 6:04 PM CDT Narrative [facility] ([facility]) - 11/26/2014 7:19 AM CDT Performed at: [facility] [id number] Payroll Associate: Yovani Davis PhD, Phone: [phone] Mary Jo Dukes MD LAB - CHEMISTR Y ORDERABLES Performing Organization Address City/[facility] Co de Phone Number [facility] MIHAELA) Care Teams Bar Host/Hostess Relationship Specialty Start Date End Date Janet You PA-C [address] [place] [address] PCP - General 07/11/22
--- OUTSIDE RECORDS SUMMARY | 2024-08-30 19:45 | XMS_ITS | Encounter Summary ---
Author Organization [facility] Address [address] [place], [place] [address] [address] Care Team Providers Care Nurses Supervisor Name Role Phone Enrique Gandhi MD Primary Care Provider [phone] Anupama Cuba DO Primary Care Provider [phone] Janet You PA-C Primary Care Provider [phone] Reason for Visit * Reason Onset Date Comments MEDICATION REFILL 07/28/2018 Encounter Details Date Type Department Care Team (Late st Contact Info) Description 07/28/2018 Refill [facility] [address] [place] [address] Mary Jo Dukes MD [address] [address] MEDICATION REFILL Social History Tobacco [...] on filedocumented in this encounter Care Teams Nurses Supervisor Relationship Specialty Start Date End Date Enrique Gandhi MD [address] [facility] [address] [place] [address] PCP - General Family Medicine 06/20/16 11/02/20 Anupama Cuba DO [address] [facility] [address] [place] [address] PCP - General 11/03/20 07/10/22 Janet You PATraceeC [address] [place] [address] PCP - General 07/11/22 documented as of this encounter
--- OUTSIDE RECORDS SUMMARY | 2024-08-30 19:45 | XMS_ITS | Clinical Summary ---
Author Organization [facility] Address [address] [place] [address] Care Team Providers Care Nuclear Officer Name Role Phone Anupama Cuba MD Primary Care Provider Nemesio Antony MD Unavailable Allergies Active Allergy [...] Treatment (MAT),PATIENT REPORTED THIS DOSE DAILY FROM [facility] [facility] Take 8 tablets (80 mg total) by mouth daily. 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 Gender Identity Not on file Sexual Orientation Not on file Occupation Industry Job Start Date Job End Date Not on file Not on file Not on file Not on file Last Filed Vital Signs Vital Sign Reading Time Taken Comments Blood Pressure 138/84 03/30/2024 2:53 PM CDT Pulse 76 03/30/2024 2:53 PM CDT Temperature 36.4 C (97.5 F) 05/03/2022 12:40 PM CDT Respiratory Rate 16 03/30/2024 2:53 PM CDT [...] Years) (1 of 2 - PCV) 1971 DTaP, Tdap and Td Vaccines (1 - Tdap) 1984 Cervical Cancer Screening Pap with HPV Testing (Age 30 to 64) Every 5 Years 1995 Cervical Cancer Screening with HPV 1995 Zoster Vaccines (1 of 2) 2015 Colorectal Cancer Screening FIT-DNA (3 Years) 10/25/2023 10/24/2020 Mammogram Screening 02/09/2024 02/08/2022 COVID-19 Vaccine (3 - season) 2024 10/28/2020, 10/07/2020 Influenza Adult (#1) 2024 04/10/2019, 05/17/20 17 PHQ-2 (Physician [place]) 07/15/2024 Colorectal Cancer Screening Colonoscopy (10 Years) [...] of malignancy. Recommendation: 1: Routine screening mammogram bilateral in 1 year Assessment: ACR BI-RADS Category 2 [...] skin thickening or other abnormalities are present. No significant change from the prior exam. us Janet Tyler PA-C MAMMO Final Resul t * COLOGUARD ([employer]) (10/24/2020 7:30 AM CDT) COLOGUARD RESULT Negative Not Applicable pic5 (CLIA #:[id number]) Comment: A negative result indicates a low [...] (Dwayne Brooks al, N Engl J Med 2014;370(14):2909-8285) The normal value (reference range) for this assay is negative. COLOGUARD RE-SCREENING RECOMMENDATION: Periodic routine colorectal cancer screening is an important part of preventive healthcare for asymptomatic persons at average risk for colorectal cancer. Following a negative Cologuard result, the [employer] Cancer Society and U.S. Multi-Society Task Force screening guidelines recommend a Cologuard re-screening interval of 3 years. References: [employer] [place] Cancer Society (ACS). Colorectal cancer prevention and early detection. [place], [place]: [employer] Society; [updated 2015Nov 05]. https://www.cancer.org/cancer/hisyy-filykk-xdcifz/isrwgmsze-shtvssamk-tsfypxi/ac s-rec ommendations.html. Accessed March 14, 2018; Thomas DK, Sebastian CR, Noah ZuluagaK, Colorectal Cancer Screening: Recommendations for Physicians and Patients from the U.S. Multi-Society Task Force on Colorectal Cancer Screening, Am J Gastroenterology 2017; 112:8089-4696. TEST TYPE: Composite algorithmic analysis of stool DNA-biomarkers with hemoglobin immunoassay. Quantitative values of individual biomarkers are not reportable [...] interval of every 3 years by the [employer] [place] Cancer Society and U.S. Multi-Society Task Force. [...] can be accessed at the following location: www.[employer].com/results. Additional description of the Cologuard test process, warnings and precautions can be found at www.cologuardtest.com. Rx only. Stool specimen (specimen) STOOL SPECIMEN / Unknown 10/24/2020 7:30 AM CDT 10/25/2020 12:27 PM CDT Marilyn Fuller NP BODY FLUIDS AND STOOLS ORDERABLE S Final Result [employer] ([facility]) [address] [place] [address], [facility] (CLIA #:[id number]) [address] [place] [address] * COLONOSCOPY/EGD (01/06/2019) us Documents Scanned SCANNING Edited Result - Final from Last 3 Months or Most Recently Relevant to Health Maintenance Insurance MEDICAID AETNA AETNA Advance Directives Documents on File Type Date Recorded Patient Property Portfolio Officer Expl anation Advance Directives and Living Will 12/08/2019 12:00 AM ADVANCED DIRECTIVES Advance Directives and Living Will 01/06/2019 12:00 AM ADVANCED DIRECTIVES Care Teams Nuclear Officer Relationship Specialty Start Date End Date Anupama Cuba MD [address] [place] [id number] PCP - General FAMILY PRACTICE 08/26/20 Nemesio Antony MD [address] [place] [address] Consulting Physician INTERNAL MEDICINE 01/05/22
--- OUTSIDE RECORDS SUMMARY | 2024-08-30 19:45 | XMS_ITS | Clinical Summary ---
Author Organization [facility] Address [address] [place] [address] Care Team Providers Care Community Organization Director Name Role Phone Anupama Cuba MD [...] daily 04/18/20 22 Active adalimumab (Humira,CF, Pen Ccqt-Zq-Lhhe HS) 80 mg/0.8 mL-40 mg/0.4 mL pen [...] tachycardia 09/07/2022 Coronary artery disease invo lving [place] coronary artery of [place] heart without angina pectoris 09/07/2022 History of cardiac arrest 09/07/2022 Encounters Date Type Department Care Team Description 06/24/2024 8:00 AM VOLUNTEER SPECIALIST Office Visit [facility] Cardiology [address] [facility] [address] [place] [address] Indira Freeman MD Coronary artery disease involving [place] coronary artery of [place] heart without angina pectoris (Primary Dx); History [...] on file Legal Sex Female 7:28 PM VOLUNTEER SPECIALIST Gender Identity Not on file Sexual Orientation Not on file Obstetrics History Last Filed Vital Signs Vital Sign Reading Time Taken Comments Blood Pressure 146/82 06/24/2024 8:01 AM VOLUNTEER SPECIALIST Pulse 61 06/24/2024 8:01 AM VOLUNTEER SPECIALIST Temperature 36.9 C (98.4 F) 11/01/2023 7:40 AM CDT Respiratory Rate 16 11/01/2023 9:28 AM CDT Oxygen Saturation 99% 06/24/2024 8:01 AM VOLUNTEER SPECIALIST Inhaled Oxygen Concentration - - Weight 99.8 kg (220 lb) 06/24/2024 8:01 AM VOLUNTEER SPECIALIST Height 162.6 cm (5' 4 ) 06/24/2024 8:01 AM VOLUNTEER SPECIALIST Body Mass Index 37.76 06/24/2024 8:01 AM VOLUNTEER SPECIALIST Plan of Treatment Health Maintenance Due Date Last Done Comments Cervical Cancer Screening 1965 Colon Cancer Screening-Colonoscopy 1965 Depression Screening 1965 DTaP/Tdap/Td Vaccine (1 - Tdap) 1976 Regular Well Visit/Exam 18-64 1983 Zoster Vaccine (1 of 2) 2015 Breast Cancer Screening-Mammogram 02/08/2023 02/08/2022, 02/08/2022, 06/14/2017 Covid-19 Vaccine (3 - 2023-2 5 season) 2024 10/28/2020, 10/07/2020 Influenza Vaccine (#1) 2024 9, 05/17/2017, 10/08/2014 Hepatitis B Screening Completed 10/31/2016 Hepatitis C Screening Completed 05/12/2019 , 04/30/2019 Pneumococcal vaccine <65 Aged Out No longer eligible based on patient's age to complete this topic Procedures Procedure Name Priority Date/Time Associated Diagnosis Comments POCT LIPID PANEL Routine 06/24/2024 8:02 AM VOLUNTEER SPECIALIST Coronary artery disease involving [place] coronary artery of [place] heart without angina pectoris Mixed hyperlipidemia from Last 3 Months Results * POCT lipid panel (06/24/2024 8:02 AM VOLUNTEER SPECIALIST) Cholesterol, POC 162 mg/dL HDL, POC 61 mg/dL Triglycerides, POC 154 mg/dL LDL Cholesterol POC 71 mg/dL Chol/HDL Ratio, POC 1.2 Non-HDL Cholesterol, POC 101 mg/dL Cholesterol Total, POC 162 mg/dL Capillary blood 06/24/2024 8 :02 AM VOLUNTEER SPECIALIST [facility] Radha Freeman MD POINT OF CARE TEST LEIDY NELSON Final Result from Last 3 Months Insurance AETNA MEDICARE [facility]OLD [facility] [place] [address] [facility] Advance Directives For more information, please contact: [phone] * Full Code (Latest Code Status on File) Date Activated Date Inactivated Comments 11/01/2023 8:52 AM 11/02/2023 4:37 AM * Full Code Date Activated Date Inactivated Comments 05/29/2023 10:01 AM 05/30/2023 4:39 AM Care Teams Community Organization Director Relationship Specialty Start Date End Date Anupama Cuba MD [address] [place] [address] PCP - General Family Medicine 09/27/22
--- OUTSIDE RECORDS SUMMARY | 2024-08-30 19:45 | XMS_ITS | Clinical Summary ---
Author Organization [facility] Address [address] [place] [address] Phone Care Team Providers Care Rn Building Name Role Phone Ck Leal Primary Care Provider [phone] Allergies No known active allergies Medications DULoxetine [...] 67 11/12/2018 10:07 AM CDT Temperature 36.4 C (97.6 F) 09/25/2017 1:14 PM CDT Respiratory Rate 20 09/25/2017 1:14 PM CDT [...] 2024 11/0 09/2016, 10/08/2014 SARS-COV-2 Immunization ( - 2023- season) 2024 05/23/2021, 10/28/2020, 10/07/2020 Respiratory Syncytial [...] age to complete this topic Insurance MEDICARE [facility] [id number] MEDICAID [place] Care Teams Rn Building Relationship Specialty Start Date End Date Ck Leal PAC [address] [place] [address] PCP - General Physician Head Porter [employer] 07/27/15
[2024-08-30 19:51] LABS: Glucose Point of Care 99 mg/dl (65-105)
--- OUTSIDE RECORDS SUMMARY | 2024-08-30 20:29 | XMS_ITS | Patient Health Summary ---
Author Organization [facility] Address [address] [place] [address] Care Team Providers Care Lithographed Plate Inspector Name Role Phone Janet You PA-C Primary Care Provider [phone] Note from [facility],non-owned Affiliates and Associated Physician Practices is amultiple site organization consisting of ambulatory clinics and hospital sitesin [place], [place], [place] and [place]. This disclosure is being madepursuant to the Care Everywhere program and may not contain all information available regarding this patient. 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 Myalgia and myositis 09/20/2014 [...] hepatitis C without hepatic coma (HCC) * OK LIVER ELASTOGRAPHY(Performed 11/08/2020) Performed for Chronic hepatitis [...] * SS-A/SS-B (SJOGREN'S) ANTIBODY PANEL(Performed 11/25/2014) * BREAKER OILER ANTIBODY(Performed 11/25/2014) * SCLERODERMA 70 (SCL) ANTIBODY(Performed [...] Comment: REPORT COMMENT: CC: Test Performed at: [facility] [employer] [facility] [id number] [place] [address] TORSTEN BROWN DO,MPH Blood BLOOD SPECIMEN / Unknown 05/09/2021 8:47 AM CDT 05/09/2021 8:48 AM CDT Regina Deluca BANKING AND FINANCE INSTRUCTOR-ISSUING OPERATOR LAB - HEMATO LOGY ORDERABLES [facility] [address] [place] [address] * (ABNORMAL) COMPREHENSIVE METABOLIC PANEL (05/09/2021 8:47 [...] approximately 13% higher for people identified as -[place] Islander. eGFR by MDRD 57(L) > OR = [...] 29 U/L [facility] Comment: Test Performed at: [employer] [id number] [place] [address] TORSTEN BROWN DO,MPH Blood BLOOD SPECIMEN / Unknown 05/09/2021 8:47 AM CDT 05/09/2021 8:48 AM CDT Regina Deluca APRN-ISSUING OPERATOR LAB - CHEMIS TRY ORDERABLES Performing Organization Address [facility] de Phone Number [facility] [address] [place] [address] * (ABNORMAL) METHADONE BLOOD QUANTITATIVE (05/02/2021 8:49 AM CDT) [facility] Methadone 1428(H) 100 - 400 ng/mL [facility] Comment: This result was generated using LC-MS/MS; an equivalent method to GC/MS. Potentially Toxic Range: >= 2000 ng/mL This test was developed and its analytical performance characteristics have been determined by [employer] [place]. It has not been cleared or approved by the U.S. Food and Drug Administration. This assay has been validated pursuant to the CLIA regulations and is used for clinical purposes. Test Performed at: [employer] [address] SHAWANDA WEN MD,PHD 05/02/2021 8:49 AM CDT 05/02/2021 8:49 AM CDT Regina Deluca APRN-ISSUING OPERATOR LAB - TOXICO LOGY ORDERABLES Performing Organization Address [facility] de Phone Number [facility] [address] [place] [address] * HEPATITIS C RNA QUANTITATIVE (05/02/2021 8:49 AM CDT) Only the most recent of3 resultswithin the time period is included. [facility] Hepatitis C Virus RNA, Quantitative Real Time PCR <15 NOT DETECTED NOT DETECTED IU/mL [facility] Hepatitis C Virus RNA, Quantitative Real Time PCR <1.18 NOT DETECTED NOT DETECTED Log IU/mL [facility] Comment: This test was performed using Real-Time Polymerase Chain Reaction. Reportable Range: 15 IU/mL to 100,000,000 IU/mL (1.18 Log IU/mL to 8.00 Log IU/mL). The analytical performance characteristics of this assay have been determined by [employer]. The modifications have not been cleared or approved by the FDA. This assay has been validated pursuant to the CLIA regulations and is used for clinical purposes. For more information on this test, go to: http://education.Fan[employer]/faq/AKH36p0 (This link is being provided for informational/ educational purposes only.) REPORT COMMENT: CC DR Lynnette LE Test Performed at: [employer] [address] [place] [address] TORSTEN BROWN DO,MPH 05/02/2021 8:49 AM CDT 05/02/2021 8:49 AM CDT Regina Deluca BANKING AND FINANCE INSTRUCTOR-ISSUING OPERATOR LAB - CHEMIS TRY ORDERABLES Performing Organization Address [facility] Co de Phone Number [facility] [address] [place] [address] * HCV RNA PCR QNT (EXTERNAL RESULT ENTRY) (05/02/2021) [facility] HCV RNA Quantitative RT-PCR (EXTERNAL RESULT) not detected [facility] Blood BLOOD SPECIMEN / Unknown 05/02/2021 Historical Provider LAB - CHEMISTRY O RDERABLES Performing Organization Address City/[facility]/ZIP Co de Phone Number [facility] [address] [place] [address], [facility] [phone] * US ABDOMEN LIMITED (12/15/2020 2:50 PM CDT) Anatomical Region Laterality Modality Abdomen Ultrasound 12/15/2020 2:31 PM CDT Impressions 12/15/2020 3:22 PM CDT IMPRESSION: 1.Mildly coarsened hepatic parenchymal echotexture, consistent with chronic liver disease. No evidence of focal hepatic observations to suggest hepatocellular carcinoma. 2.Normal gallbladder. Dictated by Palbo Carranza MD (market president) This report was approved by Pablo Carranza [...] 2.Normal gallbladder. Dictated by Pablo Carranza MD (market president) This report was approved by Pablo Carranza Dr on 12/15/2020 3:04 PM . I, Dr. LUIS EDUARDO DUNBAR M.D. have personally reviewed and interpreted this examination/study. This report was electronically signed by LUIS EDUARDO DUNBAR M.D. on12/15/2020 3:22 PM . Regina Deluca BANKING AND FINANCE INSTRUCTOR-ISSUING OPERATOR US ORDERABLE S * PROC FIBROSCAN (11/08/2020 [...] patients with nonalcoholic fatty liver disease. Gastroenterology 2019;156:5902-4405. Rachel MS, Loida R, Van Gabriel ML, [...] FIB4 score (Jermainuke et al. Hepatology Communications 2019;3:7760-2329) or NAFLD Fibrosis score (Raza et al. Clinical Gastroenterology and Hepatology 2019;17:7042-7986. from routine clinical data. 3. Liver stiffness [...] change as additional supporting data becomes available. [email or web address] Regina UMAÑA PROCEDURE/MN NOR SURGICAL ORDERABLES * PT-INR [facility] (10/11/2020 3:01 PM CDT) PT 13.6 12.1 - 14.8 Seconds 10/11/2020 4:09 PM CDT [facility] INR 1.1 See Comment 10/11/2020 4:09 PM CDT [facility] Comment:The suggested therap eutic range for standard coumadin (warfarin) therapy is an INR of 2.0-3.0. For high-risk patients (Mechanical Mitral Valve Prosthesis, etc.), the suggested prophylactic therapeutic range is an INR of 2.5-3.5. Blood BLOOD SPECIMEN / Unknown Lab Venipuncture / Unknown 10/11/2020 3:01 PM CDT 10/11/2020 3:59 PM CDT Regina Deluca APRN-ISSUING OPERATOR LAB - COAGUL ATION ORDERABLES [facility] [address] [place] [address], [facility] [phone] * HEPATITIS C GENOTYPE (10/11/2020 3:01 PM CDT) Hepatitis C Genotype 1a or 1b 10/15/2020 9:53 AM CDT [facility] ([facility]) Comment: Cannot be further subtyped into Type 1a or Type 1b due to high conservation of the 5' untranslated region of the HCV genome. In addition, Type 6 virus may be misclassified as Type 1 in some cases. The Hepatitis C Virus High-Resolution Genotype by Sequencing test ([employer] test code [id number]) provides a higher level of subtype resolution. INTERPRETIVE INFORMATION: Hepatitis C Genotyping Hepatitis C Viral RNA is tested using reverse briquette maker polymerase chain reaction (RT-PCR) to amplify a specific portion of the 5' untranslated region (5' UTR) of the viral genome. The amplified nucleic acid is sequenced bi-directionally using dye-terminator chemistry ([employer]). Sequencing data is compared to a database [...] developed and its performance characteristics determined by [employer]. It has not been cleared or approved by the US Food and Drug Administration. This test was performed in a CLIA certified laboratory and is intended for clinical purposes. Performed By: [facility] [address] [place] [address] Wood Preparation Supervisor: Roslyn Mcneal MD Blood BLOOD SPECIMEN / Unknown Lab Venipuncture / Unknown 10/11/2020 3:01 PM CDT 10/11/2020 3:53 PM CDT Regina Deluca APRN-ISSUING OPERATOR LAB - CHEMIS TRY ORDERABLES [facility] ([facility]) [address] [place] [address] * HEPATITIS B SURFACE ANTIBODY (10/11/2020 3:01 PM CDT) Hepatitis B Virus Surface Antibody Non-react nishi Non-react nishi 10/11/2020 5:20 PM CDT [facility] Comment: < 8 mIU/mL Hepatitis B surface Antibody (HBsAb). Nonreactive for HBsAb - individual is considered not immune to Hepatitis B Virus infection. Hepatitis B Surface Antibody Quantitative 7.7 <8.0 mIU/mL 10/11/2020 5:20 PM CDT [facility] Comment: Hepatitis B Surface Antibody Numeric Result Interpretation: Nonreactive: <8.0 mIU/mL Indeterminate: 8.0 - 12.0 mIU/mL Reactive: >12.0 mIU/mL Blood BLOOD SPECIMEN / Unknown Lab Venipuncture / Unknown 10/11/2020 3:01 PM CDT 10/11/2020 3:53 PM CDT Regina Deluca APRN-ISSUING OPERATOR LAB - CHEMIS TRY ORDERABLES Performing Organization Address City/[facility]/ZIP Co de Phone Number [facility] [address] [place] [phone], [place] [phone] * HEPATITIS B CORE ANTIBODY (10/11/2020 3:01 PM CDT) HBc Antibody Total Non-reacti ve Non-reacti ve 10/11/2020 5:26 PM CDT [facility] Blood BLOOD SPECIMEN / Unknown Lab Venipuncture / Unknown 10/11/2020 3:01 PM CDT 10/11/2020 3:53 PM CDT Regina Deluca APRN-ISSUING OPERATOR LAB - CHEMIS TRY ORDERABLES Performing Organization Address [facility] Co de Phone Number [facility] [address] [place] [phone], [place] [phone] * HEPATITIS B SURFACE ANTIGEN W RFLX CONFIRMATION (10/11/2020 3:01 PM CDT) Only the most recent of2 resultswithin the time period is included. Hepatitis B Virus Surface Antigen Non-reacti ve Non-reacti ve 10/11/2020 5:26 PM CDT [facility] Blood BLOOD SPECIMEN / Unknown Lab Venipuncture / Unknown 10/11/2020 3:01 PM CDT 10/11/2020 3:53 PM CDT Regina UMAÑA LAB - CHEMIS TRY ORDERABLES Performing Organization Address City/[facility]/ZIP Co de Phone Number [facility] [address] [place] [address], [place] [phone] * LAB HISTORICAL RESULTS-ONBASE (04/09/2017) Only the most recent of2 resultswithin the time period is included. 04/09/2017 Historical Provider LAB - CHEMISTRY O RDERABLES Performing Organization Address City/[facility]/ZIP Co de Phone Number [facility] [address] [place], [place], [place] * HEPATITIS C QUANT RT PCR GRAPHICAL (06/12/2016 10:23 AM FOUNTAIN WAITRESS/WAITER) Pathologist [facility] Hepatitis C Virus RNA IU/mL [id number] IU/mL [facility] ([facility]) Hepatitis C Virus RNA IU/mL 6.033 log10 IU/mL [facility] ([facility]) Test Information [facility] ([facility]) Comment:The quantitative ran ge of this assay is 15 IU/mL to 100 million IU/mL. 06/12/2016 10:2 3 AM FOUNTAIN WAITRESS/WAITER 06/12/2016 Narrative [facility] ([facility]) - 06/14/2016 3:19 PM FOUNTAIN WAITRESS/WAITER Performed at: [address] [id number] News Video Editor: Torsten Benson MD, Phone: [phone] Mary Jo Dukes MD LAB - CHEMISTR Y ORDERABLES Performing Organization Address [facility] Co de Phone Number [facility] ([facility]) * (ABNORMAL) RHEUMATOID FACTOR BLOOD QUANTITATIVE (06/12/2016 10:23 AM FOUNTAIN WAITRESS/WAITER) Only the most recent of2 resultswithin the time period is included. [facility] RA latex Turbidimetry 25.2(H) 0.0 - 13.9 IU/mL [facility] ([facility]) 06/12/2016 10:2 3 AM FOUNTAIN WAITRESS/WAITER 06/12/2016 Narrative [facility] ([facility]) - 06/13/2016 7:12 AM FOUNTAIN WAITRESS/WAITER Performed at: [address] [id number] News Video Editor: Matt West PhD, Phone: [phone] Mary Jo Dukes MD LAB - CHEMISTR Y ORDERABLES Performing Organization Address City/[facility] Co de Phone Number [facility] ([facility]) * (ABNORMAL) C-REACTIVE PROTEIN (06/12/2016 10:23 AM FOUNTAIN WAITRESS/WAITER) Only the most recent of2 resultswithin the time period is included. [facility] C-Reactive Protein 12.6(H) 0.0 - 4.9 mg/L [facility] (BEAKER) 06/12/2016 10:2 3 AM FOUNTAIN WAITRESS/WAITER 06/12/2016 Narrative [facility] (KAREN) - 06/13/2016 7:12 AM FOUNTAIN WAITRESS/WAITER Performed at: [address] [place] [id number] News Video Editor: Matt West PhD, Phone: [phone] Mary Jo Dukes MD LAB - CHEMISTR Y ORDERABLES [facility] ([facility]) * (ABNORMAL) SS-A/SS-B (SJOGRENS) ANTIBODY PANEL (06/12/2016 10:23 AM FOUNTAIN WAITRESS/WAITER) Only the most recent of2 resultswithin the time period is included. Sjogren's Antibodies (SSA) <0.2 0.0 - 0.9 AI [facility] (BEAKER) Sjogren's Antibodies (SSB) 1.6(H) 0.0 - 0.[address] [facility] [facility] 06/12/2016 10:2 3 AM FOUNTAIN WAITRESS/WAITER 06/12/2016 Narrative [facility] (BEMARCY) - 06/13/2016 3:13 PM FOUNTAIN WAITRESS/WAITER Performed at: [address] [place] [id number] News Video Editor: Matt West PhD, Phone: [phone] Mary Jo Dukes MD LAB - CHEMISTR Y ORDERABLES [facility] (KAREN) * ALDOLASE (06/12/2016 10:23 AM FOUNTAIN WAITRESS/WAITER) Aldolase 5.1 3.3 - 10.3 U/L [facility] 06/12/2016 10:2 3 AM FOUNTAIN WAITRESS/WAITER 06/12/2016 Narrative [facility] (BEAKER) - 06/13/2016 3:13 PM FOUNTAIN WAITRESS/WAITER Performed at: [address] [place] [address] [id number] News Video Editor: Matt West PhD, Phone: [phone] Mary Jo Dukes MD LAB - CHEMISTR Y ORDERABLES [facility] ([facility]) * LDH BLOOD (06/12/2016 10:23 AM FOUNTAIN WAITRESS/WAITER) Pathologist [facility] LDH Total 209 119 - 226 IU/L [facility] ([facility]) 06/12/2016 10:2 3 AM FOUNTAIN WAITRESS/WAITER 06/12/2016 [facility] - 06/13/2016 7:12 AM FOUNTAIN WAITRESS/WAITER Performed at: [address] [place] [id number] News Video Editor: Matt West PhD, Phone: [phone] Mary Jo Dukes MD LAB - CHEMISTR Y ORDERABLES Performing Organization Address City/[facility]/ZIP Co de Phone Number [facility] ([facility]) * GGT (06/12/2016 10:23 AM FOUNTAIN WAITRESS/WAITER) [facility] GGT 29 0 - 60 IU/L [facility] ([facility]) 06/12/2016 10:2 3 AM FOUNTAIN WAITRESS/WAITER 06/12/2016 Narrative [facility] ([facility]) - 06/13/2016 7:12 AM FOUNTAIN WAITRESS/WAITER Performed at: [address] [place] [address] [id number] News Video Editor: Matt West PhD, Phone: [phone] Mary Jo Dukes MD LAB - CHEMISTR Y ORDERABLES [facility] ([facility]) * CK BLOOD (06/12/2016 10:23 AM FOUNTAIN WAITRESS/WAITER) Only the most recent of2 resultswithin the time period is included. [facility] CK Total 54 24 - 173 U/L [facility] (BEAKER) 06/12/2016 10:2 3 AM FOUNTAIN WAITRESS/WAITER 06/12/2016 Narrative [facility] (BEAKER) - 06/13/2016 7:12 AM FOUNTAIN WAITRESS/WAITER Performed at: [address] [place] [address] [id number] News Video Editor: Matt West PhD, Phone: [phone] Mary Jo Dukes MD LAB - CHEMISTR Y ORDERABLES Performing Organization Address City/[facility]/ZIP Co de Phone Number [facility] * (ABNORMAL) URINALYSIS MICROSCOPIC ONLY REFLEXED (11/25/2014 1:25 PM CDT) Pathologist [facility] WBC, UA 0-5 0 - 5 /hpf [facility] (BEAKER) RBC UA 0-2 0 - 2 /hpf [facility] (BEAKER) Epithelial Cells (non renal) 0-10 0 - 10 /hpf [facility] (BEAKER) Crystals Present(A) N/A [facility] (BEAKER) Crystal Type Calcium Oxalate N/A [facility] (BEAKER) Mucus UA Present Not Estab. [facility] (BEAKER) Bacteria UA None seen None seen/Few [facility] (BEAKER) 11/25/2014 1:25 PM CDT 11/25/2014 6:04 PM CDT Narrative [facility] (BEAKER) - 11/26/2014 7:19 AM CDT Performed at: [address] [place] [address] [id number] News Video Editor: Yovani Davis PhD, Phone: [phone] Mary Jo Dukes MD LAB - URINALYS IS ORDERABLES Performing Organization Address City/[facility]/ZIP Co de Phone [facility] * URINALYSIS W/MICROSCOPIC NO CULTURE (11/25/2014 1:25 PM CDT) Pathologist [facility] Specific [place] 1.015 1.005 - 1.030 [facility] (BEAKER) pH Urine 6.0 5.0 [...] Urobilinogen Semi-Qn 0.2 0.0 - 1.9 mg/dL [facility] (BEAKER) Nitrite UA Negative Negative [facility] (BEAKER) Microscopic Examination [facility] (BEAKER) Comment:Microscopic follows if indicated. Microscopic Examination See below: [facility] (BEAKER) Comment:Microscopic was art cated and was performed. Urine specimen (specimen) URINE SPECIMEN OBTAINED BY CLEAN CATCH PROCEDURE / Unknown 11/25/2014 1:25 PM CDT 11/25/2014 6:04 PM CDT Narrative [facility] ([facility] - 11/26/2014 7:19 AM CDT Performed at: [address] [place] [address] [id number] News Video Editor: Yovani Davis PhD, Phone: [phone] Mary Jo Dukes MD LAB - URINALYS IS ORDERABLES [facility] ([facility] * URIC ACID BLOOD (11/25/2014 1:25 PM CDT) Uric acid 5.9 2.5 - 7.1 mg/dL [facility] (BEAKER) Comment:Therapeutic target f or gout patients: <6.0 Blood specimen (specimen) BLOOD SPECIMEN / Unknown 11/25/2014 1:25 PM CDT 11/25/2014 6:04 PM CDT Narrative [facility] ([facility]) - 11/26/2014 7:19 AM CDT Performed at: [address] [place] [address] [id number] News Video Editor: Yovani Davis PhD, Phone: [phone] Mary Jo Dukes MD LAB - CHEMISTR Y ORDERABLES Performing Organization Address City/[facility] Co de Phone Number [facility]) * LAWRENCE (SM) ANTIBODY NEVA (11/25/2014 1:25 PM CDT) [place] Antibody <0.2 0.0 - 0.9 AI [facility]) Blood specimen (specimen) BLOOD SPECIMEN / Unknown 11/25/2014 1:25 PM CDT 11/25/2014 6:04 PM CDT Narrative [facility]) - 11/26/2014 3:21 PM CDT Performed at: [address] [place] [id number] News Video Editor: Yovani Davis PhD, Phone: [phone] Mary Jo Dukes MD LAB - CHEMISTR Y ORDERABLES Performing Organization Address [facility] Co de Phone Number [facility]) * (ABNORMAL) BREAKER OILER ANTIBODY (11/25/2014 1:25 PM CDT) BREAKER OILER Antibody 1.0(H) 0.0 - 0.9 AI [facility]) Blood specimen (specimen) BLOOD SPECIMEN / Unknown 11/25/2014 1:25 PM CDT 11/25/2014 6:04 PM CDT Narrative [facility]) - 11/26/2014 3:21 PM CDT Performed at: [address] [place] [address] [id number] News Video Editor: Yovani Davis PhD, Phone: [phone] Mary Jo Dukes MD LAB - CHEMISTR Y ORDERABLES Performing Organization Address City/[facility]/ZIP Co de Phone Number [facility] ([facility]) * CRISS BLOOD SCREEN W/REFLEX TITER (11/25/2014 1:25 PM CDT) CRISS IFA Negative [facility] ([facility]) Comment: Negative <1:80 Borderline 1:80 Positive >1:80 Blood specimen (specimen) BLOOD SPECIMEN / Unknown 11/25/2014 1:25 PM CDT 11/25/2014 6:04 PM CDT Narrative [facility] ([facility]) - 11/26/2014 3:21 PM CDT Performed at: [address] [place] [address] [phone] News Video Editor: Yovani Davis PhD, Phone: [phone] Mary Jo Dukes MD LAB - CHEMISTR Y ORDERABLES Performing Organization Address [facility] Co de Phone Number [facility] ([facility]) * HLA TYPING B27 (11/25/2014 1:25 PM CDT) HLA-B27 Positive [facility] ([facility]) Comment: HLA-B*27 Positive This patient is positive for HLA-B*27. This procedure rules out the B*27:06 and 27:09 alleles, which the literature suggests are not associated with spondyloarthropathies. HLA Lab CLIA ID Number [id number] This test was performed using PCR (Polymerase [...] PM CDT 11/25/2014 6:04 PM CDT Narrative [facility] - 11/30/2014 3:24 PM CDT Performed at: [address] [place] [address] [id number] News Video Editor: Fredis Pierson PhD, Phone: [phone] Mary Jo Dukes MD LAB - CHEMISTR Y ORDERABLES Performing Organization Address [facility] Co de Phone Number [facility] ([facility]) * HISTONE ANTIBODY (11/25/2014 1:25 PM CDT) [facility] Histone Antibody 0.8 0.0 - 0.9 Units [facility] ([facility]) Comment: Negative <1.0 Weak Positive 1.0 - 1.5 Moderate Positive 1.6 - 2.5 Strong Positive >2.5 Blood specimen (specimen) BLOOD SPECIMEN / Unknown 11/25/2014 1:25 PM CDT 11/25/2014 6:04 PM CDT Narrative [facility] ([facility]) - 11/30/2014 3:24 PM CDT Performed at: [address] [place] [address] [id number] News Video Editor: Torsten Benson MD, Phone: [phone] Mary Jo Dukes MD LAB - CHEMISTR Y ORDERABLES Performing Organization Address [facility] de Phone Number [facility] ([facility]) * (ABNORMAL) COMPLEMENT TOTAL (11/25/2014 1:25 PM CDT) [facility] Complement Total CH50 >62(H) 42 - 62 U/mL [facility]) Comment:Please note refere nce interval change Blood specimen (specimen) BLOOD SPECIMEN / Unknown 11/25/2014 1:25 PM CDT 11/25/2014 6:04 PM CDT Narrative [facility] ([facility]) - 11/27/2014 7:17 AM CDT Performed at: [address] [place] [address] [id number] News Video Editor: Yovani Davis PhD, Phone: [phone] Mary Jo Dukes MD LAB - CHEMISTR Y ORDERABLES Performing Organization Address City/[facility] Co de Phone Number [facility]) * SCLERODERMA 70 (SCL) ANTIBODY (11/25/2014 1:25 PM CDT) Antiscleroderma -70 Antibody <0.2 0.0 - 0.9 AI [facility]) Blood specimen (specimen) BLOOD SPECIMEN / Unknown 11/25/2014 1:25 PM CDT 11/25/2014 6:04 PM CDT Narrative [facility] ([facility]) - 11/26/2014 3:21 PM CDT Performed at: [address] [place] [address] [id number] News Video Editor: Yovani Davis PhD, Phone: [phone] Mary Jo Dukes MD LAB - CHEMISTR Y ORDERABLES Performing Organization Address [facility] Co de Phone Number [facility]) * DNA ANTIBODY DOUBLE STRANDED (11/25/2014 1:25 PM CDT) dsDNA Antibody 7 0 - 9 IU/mL [facility]) Comment: Negative <5 Equivocal 5 - 9 Positive >9 Blood specimen (specimen) BLOOD SPECIMEN / Unknown 11/25/2014 1:25 PM CDT 11/25/2014 6:04 PM CDT Narrative [facility]) - 11/26/2014 3:21 PM CDT Performed at: [address] [place] [address] [id number] News Video Editor: Yovani Davis PhD, Phone: [phone] Mary Jo Dukes MD LAB - HEMATOLO GY ORDERABLES Performing Organization Address [facility] Co de Phone Number [facility]) * CYCLIC CITRUL PEPTIDE AB IGG (CCP) (11/25/2014 1:25 PM CDT) Cyclic Citrullinated Peptide Antibody 6 0 - 19 units [facility]) Comment: Negative <20 Weak positive 20 - 39 Moderate positive 40 - 59 Strong positive >59 Blood specimen (specimen) BLOOD SPECIMEN / Unknown 11/25/2014 1:25 PM CDT 11/25/2014 6:04 PM CDT Narrative [facility] (BEAKER) - 11/27/2014 7:17 AM CDT Performed at: [address] [place] [address] [id number] News Video Editor: Torsten Benson MD, Phone: [phone] Mary Jo Dukes MD LAB - CHEMISTR Y ORDERABLES [facility] ([facility] * ERYTHROCYTE SEDIMENTATION RATE (11/25/2014 1:25 PM CDT) Pathologist [facility] Erythrocyte Sedimentation Rate Westergren 15 0 - 32 mm/hr [facility] ([facility]) Blood specimen (specimen) BLOOD SPECIMEN / Unknown 11/25/2014 1:25 PM CDT 11/25/2014 6:04 PM CDT Narrative [facility] ([facility]) - 11/26/2014 7:19 AM CDT Performed at: [address] [place] [address] [id number] News Video Editor: Yovani Davis PhD, Phone: [phone] Mary Jo Dukes MD LAB - HEMATOLO GY ORDERABLES [facility] ([facility] * CBC W/O DIFFERENTIAL (11/25/2014 1:25 PM CDT) WBC 4.9 3.4 - 10.8 x10E3/uL [facility] (BEAKER) RBC 4.08 3.77 - 5.28 x10E6/uL [facility] (BEAKER) Hemoglobin 12.0 11.1 - 15.9 g/dL [facility] (BEAKER) Hematocrit 34.9 34.0 - 46.6 % [facility] (BEAKER) MCV 86 79 - 97 fL [facility] (BEAKER) MCH 29.4 26.6 - 33.0 pg [facility] ([facility] MCHC 34.4 31.5 - 35.7 g/dL [facility] ([facility]) RDW-CV 14.1 12.3 - 15.4 % [facility] ([facility]) Platelet 251 150 - 379 x10E3/uL [facility] ([facility]) Blood specimen (specimen) BLOOD SPECIMEN / Unknown 11/25/2014 1:25 PM CDT 11/25/2014 6:04 PM CDT Narrative [facility] ([facility]) - 11/26/2014 7:19 AM CDT Performed at: [address] [place] [address] [id number] News Video Editor: Yovani Davis PhD, Phone: [phone] Mary Jo Dukes MD LAB - HEMATOLO GY ORDERABLES Performing Organization Address City/[facility]/ZIP Co de Phone Number [facility] ([facility]) * COMPLEMENT C4 (11/25/2014 1:25 PM CDT) Complement C4 36 9 - 36 mg/dL Adult [facility] ([facility]) Blood specimen (specimen) BLOOD SPECIMEN / Unknown 11/25/2014 1:25 PM CDT 11/25/2014 6:04 PM CDT Narrative [facility] ([facility]) - 11/26/2014 7:19 AM CDT Performed at: [address] [place] [address] [id number] News Video Editor: Yovani Davis PhD, Phone: [phone] Mary Jo Dukes MD LAB - SEROLOGY ORDERABLES Performing Organization Address City/[facility]/ZIP Co de Phone Number [facility] ([facility]) * TSH (11/25/2014 1:25 PM CDT) TSH 2.570 0.450 - 4.500 uIU/mL [facility] ([facility]) Blood specimen (specimen) BLOOD SPECIMEN / Unknown 11/25/2014 1:25 PM CDT 11/25/2014 6:04 PM CDT Narrative [facility] ([facility]) - 11/26/2014 7:19 AM CDT Performed at: [address] [place] [address] [id number] News Video Editor: Yovani Davis PhD, Phone: [phone] Mary Jo Dukes MD LAB - CHEMISTR Y ORDERABLES Performing Organization Address [facility] de Phone Number [facility]) * T4 FREE (11/25/2014 1:25 PM CDT) [facility] T4 Free 0.85 0.82 - 1.77 ng/dL [facility]) Blood specimen (specimen) BLOOD SPECIMEN / Unknown 11/25/2014 1:25 PM CDT 11/25/2014 6:04 PM CDT Narrative [facility]) - 11/26/2014 7:19 AM CDT Performed at: [address] [place] [address] [id number] News Video Editor: Yovani Davis PhD, Phone: [phone] Mary Jo Dukes MD LAB - CHEMISTR Y ORDERABLES Performing Organization Address [facility] de Phone Number [facility]) * (ABNORMAL) HEPATITIS C ANTIBODY (11/25/2014 1:25 PM CDT) [facility] Hepatitis C Virus Antibody >11.0(H) 0.0 - 0.9 s/co ratio [facility]) Comment: Negative: < 0.8 Indeterminate: 0.8 - 0.9 Positive: > 0.9 In order to reduce the incidence of a false positive result, the CDC recommends that all s/co ratios between 1.0 and 10.9 be confirmed by a more specific supplemental or PCR testing. [facility] offers HCV Ab w/Reflex to Verification test #[id number]. Blood specimen (specimen) BLOOD SPECIMEN / Unknown 11/25/2014 1:25 PM CDT 11/25/2014 6:04 PM CDT Narrative [facility] (KAREN) - 11/26/2014 7:19 AM CDT Performed at: [facility] [id number] News Video Editor: Yovani Davis PhD, Phone: [phone] Mary Jo Dukes MD LAB - CHEMISTR Y ORDERABLES Performing Organization Address City/[facility] Co de Phone Number [facility] ([facility]EN) * (ABNORMAL) COMPLEMENT C3 (11/25/2014 1:25 PM CDT) Complement C3 183(H) 90 - 180 mg/dL Adult [facility] ([facility]) Blood specimen (specimen) BLOOD SPECIMEN / Unknown 11/25/2014 1:25 PM CDT 11/25/2014 6:04 PM CDT Narrative [facility] ([facility]EN) - 11/26/2014 7:19 AM CDT Performed at: [facility] [id number] News Video Editor: Yovani Davis PhD, Phone: [phone] Mary Jo Dukes MD LAB - CHEMISTR Y ORDERABLES Performing Organization Address City/[facility] Co de Phone Number [facility] MIHAELA) Care Teams Lithographed Plate Inspector Relationship Specialty Start Date End Date Janet You PA-C [address] [place] [address] PCP - General 07/11/22
--- OUTSIDE RECORDS SUMMARY | 2024-08-30 20:29 | XMS_ITS | Encounter Summary ---
Author Organization [facility] Address [address] [place], [place] [address] [address] Care Team Providers Care Director Of Entertainment Name Role Phone Enrique Gandhi MD Primary Care Provider [phone] Anupama Cuba DO Primary Care Provider [phone]- [phone] Janet You PA-C Primary Care Provider [phone] Reason for Visit * Reason Onset Date Comments MEDICATION REFILL 01/06/2018 Encounter Details Date Type Department Care Team (Late st Contact Info) Description 01/06/2018 Refill [facility] [address] [place] [address] Mary Jo Dukes MD [address] [address] MEDICATION REFILL Social History Tobacco Use Types [...] on filedocumented in this encounter Care Teams Director Of Entertainment Relationship Specialty Start Date End Date Enrique Gandhi MD [address] [facility] [address] [place] [address] PCP - General Family Medicine 06/20/16 11/02/20 Anupama Cuba DO [address] [facility] [address] [place] [address] PCP - General 11/03/20 07/10/22 Janet You PATraceeC [address] [place] [address] PCP - General 07/11/22 documented as of this encounter
--- OUTSIDE RECORDS SUMMARY | 2024-08-30 20:29 | XMS_ITS | Encounter Summary ---
Author Organization [facility] Address [address] [place], [place] [address] [address] Care Team Providers Care High Lift Mule Operator Name Role Phone Enrique Gandhi MD Primary Care Provider [phone] Anupama Cuba DO Primary Care Provider [phone]- [phone] Janet You PA-C Primary Care Provider [phone] Reason for Visit * Reason Onset Date Comments MEDICATION REFILL 02/12/2018 Encounter Details Date Type Department Care Team (Late st Contact Info) Description 02/12/2018 Refill [facility] [address] [place] [address] Mary Jo Dukes MD [address] [place] [id number] MEDICATION REFILL Social History Tobacco Use Types [...] on filedocumented in this encounter Care Teams High Lift Mule Operator Relationship Specialty Start Date End Date Enrique Gandhi MD [address] [facility] [address] [place] [address] PCP - General Family Medicine 06/20/16 11/02/20 Anupama Cuba DO [address] [facility] 100 [place] [address] PCP - General 11/03/20 07/10/22 Janet You PATraceeC [address] [place] [address] PCP - General 07/11/22 documented as of this encounter
--- OUTSIDE RECORDS SUMMARY | 2024-08-30 20:29 | XMS_ITS | Encounter Summary ---
Author Organization [facility] Address [facility] [place] [address] Care Team Providers Care Training Lead Name Role Phone Anupama Cuba MD Primary Care Provider [phone] Nemesio Antony MD Unavailable Nemesio Antony MD Unavailable Encounter Details Date Type Department Care Team (Late st Contact Info) Description 09/26/2020 Abstract [facility] [address] [place] [phone] Nemesio Antony MD [address] 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
--- OUTSIDE RECORDS SUMMARY | 2024-08-30 20:29 | XMS_ITS | Clinical Summary ---
Author Organization [facility] Address [address] [facility] [place] [address] Care Team Providers Care Corporate Manager Name Role Phone Janet You PA-C Primary Care Provider [phone] Source Comments [facility],non-owned Affiliates and Associated Physician Practices is amultiple site organization consisting of ambulatory clinics and hospital sitesin [place] and [place]. This disclosure is being madepursuant to the Care Everywhere program and may not contain all information available regarding this patient. Last updated 18.[facility] Allergies No known active allergies Medications [...] 09/25/2017 Pain of left great toe 09/25/2017 Anti-MAKEUP EDITOR antibodies present 11/30/2014 Myalgia and myositis 09/20/2014 [...] approximately 13% higher for people identified as -[place]. eGFR by MDRD 57(L) > OR = [...] 29 U/L [facility] Comment: Test Performed at: [employer] [address] [place] [address] TORSTEN BROWN DO,MPH Blood BLOOD SPECIMEN / Unknown 05/09/2021 8:47 AM CDT 05/09/2021 8:48 AM CDT Regina Deluca SHIPPING AND RECEIVING SUPERVISOR-TELEMARKETER LAB - CHEMIS TRY ORDERABLES [facility] [address] [place] [address] * HEPATITIS C RNA QUANTITATIVE (05/02/2021 8:49 [...] of this assay have been determined by [employer]. The modifications have not been cleared or approved by the FDA. This assay has been validated pursuant to the CLIA regulations and is used for clinical purposes. For more information on this test, go to: http://education.PAK/faq/HEW32f3 (This link is being provided for informational/ educational purposes only.) REPORT COMMENT: CC DR Lynnette LE Test Performed at: [facility] [address] [place] [address] TORSTEN BROWN DO,MPH 05/02/2021 8:49 AM CDT 05/02/2021 8:49 AM CDT Regina Deluca SHIPPING AND RECEIVING SUPERVISOR-TELEMARKETER LAB - CHEMIS TRY ORDERABLES [facility] [address] [place] [address] from Last 3 Months or Most Recently Relevant to Health Maintenance Care Teams Corporate Manager Relationship Specialty Start Date End Date Janet You PATraceeC [address] [place] [address] PCP - General 07/11/22
--- OUTSIDE RECORDS SUMMARY | 2024-08-30 20:29 | XMS_ITS | Encounter Summary ---
Author Organization [facility] Address [address] [place], [place] [address] [address] Care Team Providers Care Anodizer Name Role Phone Enrique Gandhi MD Primary Care Provider [phone] Anupama Cuba DO Primary Care Provider [phone]- [phone] Janet You PA-C Primary Care Provider [phone] Reason for Visit * Reason Onset Date Comments MEDICATION REFILL 07/28/2018 Encounter Details Date Type Department Care Team (Late st Contact Info) Description 07/28/2018 Refill [facility] [address] [place] [address] Mary Jo Dukes MD [address] [address] MEDICATION REFILL Social History Tobacco [...] on filedocumented in this encounter Care Teams Anodizer Relationship Specialty Start Date End Date Enrique Gandhi MD [address] [facility] [address] [place] [address] PCP - General Family Medicine 06/20/16 11/02/20 Anupama Cuba DO [address] [facility] 100 [place] [address] PCP - General 11/03/20 07/10/22 Janet You PATraceeC [address] [place] [address] PCP - General 07/11/22 documented as of this encounter
--- OUTSIDE RECORDS SUMMARY | 2024-08-30 20:30 | XMS_ITS | Clinical Summary ---
Author Organization [facility] Address [address] [place] [address] Care Team Providers Care Power Press Tender Name Role Phone Anupama Cuba MD Primary Care Provider [phone] Nemesio Antony MD Unavailable Allergies Active Allergy [...] Treatment (MAT),PATIENT REPORTED THIS DOSE DAILY FROM [facility] Take 8 tablets (80 mg total) by mouth daily. Indications: Medication-Assist ed Treatment (MAT), PATIENT REPORTED THIS DOSE DAILY FROM 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 COLOGUARD RE-SCREENING RECOMMENDATION: Periodic routine colorectal cancer screening is an important part of preventive healthcare for asymptomatic persons at average risk for colorectal cancer. Following a negative Cologuard result, the [employer] Cancer Society and U.S. Multi-Society Task Force screening guidelines recommend a Cologuard re-screening interval of 3 years. References: [employer] Cancer Society (ACS). Colorectal cancer prevention and early detection. [place], [place]: [employer] Society; [updated 2015Nov 05]. https://www.cancer.org/cancer/jdohg-eulftj-ksrdrh/mlkscqpyh-ejivlrwwo-mvjsprr/ac s-rec ommendations.html. Accessed March 14, 2018; Thomas DK, Sebastian CR, Noah ZuluagaK, Colorectal Cancer Screening: Recommendations for Physicians and Patients from the U.S. Multi-Society Task Force on Colorectal Cancer Screening, Am J Gastroenterology 2017; 112:1247-5466. TEST TYPE: Composite algorithmic analysis of stool [...] interval of every 3 years by the [employer] Cancer Society and U.S. Multi-Society Task Force. [...] can be accessed at the following location: www.[employer].com/results. Additional description of the Cologuard test process, warnings and precautions can be found at www.cologuardtest.com. Rx only. Stool specimen (specimen) STOOL SPECIMEN / Unknown 10/24/2020 7:30 AM CDT 10/25/2020 12:27 PM CDT Marilyn Fuller NP BODY FLUIDS AND STOOLS ORDERABLE S Final Result [facility] ([facility]) [address] [place] [address], [facility] (CLIA #:[id number]) [address] [place] [address] * COLONOSCOPY/EGD (01/06/2019) us Documents Scanned SCANNING Edited Result - Final from Last 3 Months or Most Recently Relevant to Health Maintenance Insurance MEDICAID AETNA AETNA Advance Directives Documents on File Type Date Recorded Patient Bleach Boiler Filler Expl anation Advance Directives and Living Will 12/08/2019 12:00 AM ADVANCED DIRECTIVES Advance Directives and Living Will 01/06/2019 12:00 AM ADVANCED DIRECTIVES Care Teams Power Press Tender Relationship Specialty Start Date End Date Anupama Cuba MD [address] [facility] [place] [address] PCP - General FAMILY PRACTICE 08/26/20 Nemesio Antony MD [address] [place] [address] Consulting Physician INTERNAL MEDICINE 01/05/22
--- OUTSIDE RECORDS SUMMARY | 2024-08-30 20:30 | XMS_ITS | Clinical Summary ---
Author Organization [facility] Address [address] [place] [address] Phone Care Team Providers Care Engineering Aid Name Role Phone Ck Leal Primary Care Provider [phone] Allergies No known active allergies Medications DULoxetine [...] this topic Insurance MEDICARE [facility] [place] [address] [place]ICAID [place] Care Teams Engineering Aid Relationship Specialty Start Date End Date Ck Leal PAC [address] [place] [address] PCP - General Physician Filling Separator 07/27/15
--- OUTSIDE RECORDS SUMMARY | 2024-08-30 20:30 | XMS_ITS | Referral Summary ---
Author Organization [facility] Address [address] [place] [address] Care Team Providers Care Welder Setter Electron Beam Machine Name Role Phone Anupama Cuba MD Primary Care Provider Encounters Date Type Department Care Team Description 06/24/2024 8:00 AM DISINTEGRATOR FEEDER Office Visit 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 angina pectoris (Primary Dx); History [...] daily 04/18/20 22 Active adalimumab ([place],CF, Pen Azwu-Df-Lzmb HS) 80 mg/0.8 mL-40 mg/0.4 mL pen [...] tachycardia 09/07/2022 Coronary artery disease invo lving siletz tribe coronary artery of siletz tribe heart without angina pectoris 09/07/2022 History of [...] on file Legal Sex Female 7:28 PM DISINTEGRATOR FEEDER Gender Identity Not on file Sexual Orientation Not on file Last Filed Vital Signs Vital Sign Reading Time Taken Comments Blood Pressure 146/82 06/24/2024 8:01 AM DISINTEGRATOR FEEDER Pulse 61 06/24/2024 8:01 AM DISINTEGRATOR FEEDER Temperature 36.9 C (98.4 F) 11/01/2023 7:40 AM CDT Respiratory Rate 16 11/01/2023 9:28 AM CDT Oxygen Saturation 99% 06/24/2024 8:01 AM DISINTEGRATOR FEEDER Inhaled Oxygen Concentration - - Weight 99.8 kg (220 lb) 06/24/2024 8:01 AM DISINTEGRATOR FEEDER Height 162.6 cm (5' 4 ) 06/24/2024 8:01 AM DISINTEGRATOR FEEDER Body Mass Index 37.76 06/24/2024 8:01 AM DISINTEGRATOR FEEDER Plan of Treatment Not on file Procedures Procedure Name Priority Date/Time Associated Diagnosis Comments POCT LIPID PANEL Routine 06/24/2024 8:02 AM DISINTEGRATOR FEEDER Coronary artery disease involving siletz tribe coronary artery of siletz tribe heart without angina pectoris Mixed hyperlipidemia from Last 3 Months Results * POCT lipid panel (06/24/2024 8:02 AM DISINTEGRATOR FEEDER) Cholesterol, POC 162 mg/dL HDL, POC 61 mg/dL Triglycerides, POC 154 mg/dL LDL Cholesterol POC 71 mg/dL Chol/HDL Ratio, POC 1.2 Non-HDL Cholesterol, POC 101 mg/dL Cholesterol Total, POC 162 mg/dL Capillary blood 06/24/2024 8 :02 AM DISINTEGRATOR FEEDER us Ripa Radha Freeman MD POINT OF CARE TEST MCKAYArgelia LESLIE Final Result from Last 3 Months Insurance TNA MEDICARE [facility] Address: [address] [place] [address] ID[place] AETNA MEDICARE [facility] Advance Directives For more information, please contact: [phone] * Full Code (Latest Code Status on File) Date Activated Date Inactivated Comments 11/01/2023 8:52 AM 11/02/2023 4:37 AM * Full Code Date Activated Date Inactivated Comments 05/29/2023 10:01 AM 05/30/2023 4:39 AM Care Teams Welder Setter Electron Beam Machine Relationship Specialty Start Date End Date Anupama Cuba MD [address] [facility] [place] [address] PCP - General Family Medicine 09/27/22
--- OUTSIDE RECORDS SUMMARY | 2024-08-30 20:30 | XMS_ITS | Referral Summary ---
Author Organization [facility] Address [address] [place] [place] [address] Care Team Providers Care Coin Machine Supervisor Name Role Phone Janet You PA-C Primary Care Provider [phone] Source Comments [facility],non-owned Affiliates and Associated Physician Practices is amultiple site organization consisting of ambulatory clinics and hospital sitesin [place], [place], [place] and [place]. This disclosure is being madepursuant to the Care Everywhere program and may not contain all information available regarding this patient. Last updated 18.[facility] Allergies No known active allergies Medications [...] 09/25/2017 Pain of left great toe 09/25/2017 Anti-TURBINE OPERATOR antibodies present 11/30/2014 Myalgia and myositis 09/20/2014 [...] approximately 13% higher for people identified as -Gabonese. eGFR by MDRD 57(L) > OR = [...] 29 U/L [facility] Comment: Test Performed at: [facility] [address] [place] [address] TORSTEN BROWN DO,MPH Blood BLOOD SPECIMEN / Unknown 05/09/2021 8:47 AM CDT 05/09/2021 8:48 AM CDT Regina Deluca SOCIAL MEDIA JOB TITLES-ONCOLOGY NAVIGATOR LAB - CHEMIS TRY ORDERABLES [facility] [address] [place] [address] * HEPATITIS C RNA QUANTITATIVE (05/02/2021 8:49 [...] of this assay have been determined by [employer]. The modifications have not been cleared or approved by the FDA. This assay has been validated pursuant to the CLIA regulations and is used for clinical purposes. For more information on this test, go to: http://education.[employer]/faq/FCW58w7 (This link is being provided for informational/ educational purposes only.) REPORT COMMENT: CC DR Lynnette LE Test Performed at: [facility] [address] [place] [address] TORSTEN BROWN DO,MPH 05/02/2021 8:49 AM CDT 05/02/2021 8:49 AM CDT Regina Deluca SOCIAL MEDIA JOB TITLES-ONCOLOGY NAVIGATOR LAB - CHEMIS TRY ORDERABLES Performing Organization Address City/State/[facility] Co de Phone Number [facility] [address] [place] [address] from Last 3 Months or Most Recently Relevant to Health Maintenance Care Teams Coin Machine Supervisor Relationship Specialty Start Date End Date Janet You, PATraceeC [address] [place] [address] PCP - General 07/11/22
--- OUTSIDE RECORDS SUMMARY | 2024-08-30 20:30 | XMS_ITS | Clinical Summary ---
Author Organization [facility] Building [facility] Address [address] [place] [address] Care Team Providers Care Digital Developer Name Role Phone Anupama Cuba MD Primary [...] daily 04/18/20 22 Active adalimumab (Humira,CF, Pen Nnxc-Xu-Bawy HS) 80 mg/0.8 mL-40 mg/0.4 mL pen [...] tachycardia 09/07/2022 Coronary artery disease invo lving united [place] coronary artery of [place] heart without angina pectoris 09/07/2022 History of cardiac arrest 09/07/2022 Encounters Date Type Department Care Team Description 06/24/2024 8:00 AM MANUAL ARTS THERAPIST Office Visit [facility] [address] [place] [address] Indira Freeman MD Coronary artery disease involving [place] coronary artery of [place] heart without angina pectoris (Primary Dx); History [...] on file Legal Sex Female 7:28 PM MANUAL ARTS THERAPIST Gender Identity Not on file Sexual Orientation Not on file Obstetrics History Last Filed Vital Signs Vital Sign Reading Time Taken Comments Blood Pressure 146/82 06/24/2024 8:01 AM MANUAL ARTS THERAPIST Pulse 61 06/24/2024 8:01 AM MANUAL ARTS THERAPIST Temperature 36.9 C (98.4 F) 11/01/2023 7:40 AM CDT Respiratory Rate 16 11/01/2023 9:28 AM CDT Oxygen Saturation 99% 06/24/2024 8:01 AM MANUAL ARTS THERAPIST Inhaled Oxygen Concentration - - Weight 99.8 kg (220 lb) 06/24/2024 8:01 AM MANUAL ARTS THERAPIST Height 162.6 cm (5' 4 ) 06/24/2024 8:01 AM MANUAL ARTS THERAPIST Body Mass Index 37.76 06/24/2024 8:01 AM MANUAL ARTS THERAPIST Plan of Treatment Health Maintenance Due Date [...] POCT LIPID PANEL Routine 06/24/2024 8:02 AM MANUAL ARTS THERAPIST Coronary artery disease involving [place] coronary artery of [place] heart without angina pectoris Mixed hyperlipidemia from Last 3 Months Results * POCT lipid panel (06/24/2024 8:02 AM MANUAL ARTS THERAPIST) Cholesterol, POC 162 mg/dL HDL, POC 61 mg/dL Triglycerides, POC 154 mg/dL LDL Cholesterol POC 71 mg/dL Chol/HDL Ratio, POC 1.2 Non-HDL Cholesterol, POC 101 mg/dL Cholesterol Total, POC 162 mg/dL Capillary blood 06/24/2024 8 :02 AM MANUAL ARTS THERAPIST [facility] Radha Freeman MD POINT OF CARE TEST LEIDY NELSON Final Result from Last 3 Months Insurance AETNA MEDICARE GOLD [facility] AETNA MEDICARE GOLD [facility] Advance Directives For more information, please contact: [phone] * Full Code (Latest Code Status on File) Date Activated Date Inactivated Comments 11/01/2023 8:52 AM 11/02/2023 4:37 AM * Full Code Date Activated Date Inactivated Comments 05/29/2023 10:01 AM 05/30/2023 4:39 AM Care Teams Digital Developer Relationship Specialty Start Date End Date Anupama Cuba MD [address] [place] [address] PCP - General Family Medicine 09/27/22
[2024-08-30] MEDS: LORazepam (*CRX) 1 MG TABLET PO (20:31)
[2024-08-30 20:42] LABS: SARS-CoV-2 RNA PCR Negative (Negative)
[2024-08-30 20:57] LABS: Basophils Absolute Auto 0.01 K/mm3 (0.00-0.10); Basophils Percent Auto 0.2 % (0.0-1.0); Eosinophils Percent Auto 3.7 % (1.0-6.0); Hematocrit 37.6 % (35.0-49.0); Hemoglobin 11.9 g/dL (12.0-15.0); Immature Granulocyte Absolute 0.01 K/mm3 (0.00-0.00); Immature Granulocyte Percent A 0.2 % (0.0-0.0); Lymphocytes Absolute Auto 1.94 K/mm3 (1.10-4.50); Lymphocytes Percent Auto 36.3 % (18.0-42.0); Mean Corpuscular HGB Conc 31.6 g/dL (32-36); Mean Corpuscular Hemoglobin 28.6 pg (27.0-31.0); Mean Corpuscular Volume 90.4 fL (78.0-102.0); Mean Platelet Volume 10.5 fl (9.2-11.8); Monocytes Absolute Auto 0.35 K/mm3 (0.10-0.90); Monocytes Percent Auto 6.5 % (2.0-11.0); Neutrophils Absolute Auto 2.84 K/mm3 (1.70-7.20); Neutrophils Percent Auto 53.1 % (50.0-70.0); Platelet Count Result 228 K/mm3 (150-420); Red Blood Count 4.16 M/mm3 (4.20-5.40); Red Cell Distribution Width 14.3 % (11.6-14.4); White Blood Count 5.4 K/mm3 (4.8-10.8)
[2024-08-30 20:57] LABS: Influenza A QL RT-PCR Negative (Negative); Influenza B QL RT-PCR Negative (Negative); RSV RNA, RT-PCR Negative (Negative)
[2024-08-30 21:15] LABS: Alanine Aminotransferase 23 U/L (14-59); Albumin Level 3.9 g/dL (3.4-5.0); Alkaline Phosphatase 115 U/L (46-116); Anion Gap 9 mmol/L (4-12); Aspartate Amino Transferase 23 U/L (15-37); Bilirubin,Total 0.3 mg/dL (0.00-1.00); Blood Urea Nitrogen 11 mg/dL (7-18); Calcium 9.1 mg/dL (8.5-10.1); Carbon Dioxide 31 mmol/L (21-32); Chloride 103 mmol/L (98-108); Estimated CRCL calculation 39 ml/min; Estimated Glomerular Filt Rate 33; Glucose 90 mg/dL (70-99); Osmolality Calculated 295 mOsm/kg (285-295); Sodium 143 mmol/L (136-145); Total Protein 7.7 g/dL (6.4-8.2); Troponin I 6.9 ng/L (0.00-60.4)
[2024-08-30 21:33] LABS: Add Urine Microscopic? YES; Bilirubin Urine Negative (Negative); Blood Urine Negative (Negative); Color Urine Light Yellow (Yellow); Glucose Urine UA Negative (Negative); Ketones Urine Negative (Negative); Leukocyte Esterase Ur 1+ LEU/UL (Negative); Nitrate Urine Negative (Negative); Protein Urine Negative (Negative); Urobilinogen Urine 0.2 mg/dL (0.2-1.0)
--- NOTE | 2024-08-30 21:59 | PC.NURSE ---
Called lab to check on UA results. Lab said that they should be resulted with in the next 10 mins.
[2024-08-30 22:07] LABS: Amorphous Sediment Urine Few; Appearance Urine Cloudy (Clear); Bacteria Urine 1+ /hpf; WBC Clumps Urine Present /hpf; WBC Urine 16-20 /hpf (0-3)
--- NOTE | 2024-08-30 22:15 | PC.NURSE ---
ERP aware of pt's blood pressure. No new orders.
== END 2024-08-30 22:34 | disposition home or self-care (01) ==
PROVIDERS: Emergency Provider Emergency Medicine; PCP Family Medicine
DX: F45.8 Other somatoform disorders (principal); N39.0 Urinary tract infection, site not specified; I10 Essential (primary) hypertension; E78.5 Hyperlipidemia, unspecified; E03.9 Hypothyroidism, unspecified; J44.9 Chronic obstructive pulmonary disease, unspecified; Z79.899 Other long term (current) drug therapy; F17.210 Nicotine dependence, cigarettes, uncomplicated; Z20.822 Contact with and (suspected) exposure to COVID-19
CPT/HCPCS: 36415; 70450; 71045; 80053; 81001; 82948; 84484; 85025; 87086; 87637; 93005; 96374; 99284; A9270

== ENCOUNTER 2024-11-05 08:34 | Outpatient (CLI) | payer MEDICARE, MEDICAID, SELFPAY ==
--- OUTSIDE RECORDS SUMMARY | 2024-11-05 08:57 | XMS_ITS | Data Portability ---
Author Organization [facility] Address [address] [place] [address] Care Team Providers Care Cross Tie Cutter Name Role Phone LIZA LEAL Primary Care Provider JEN BROWER OTHER Assessment No assessment recorded. Plan of Treatment Reminders Order Date Submit Date Provider Last Modified By Organization Details Last Modified Time Details Appointments None recorded. Lab None recorded. Referral ENT referral 2019 [facility], 2 [facility], [address], [address], 0 12:32:51 urogynecol ogist referral 2019 [place] Anaid Boggs, [address], [place], [address], 0 11:16:05 Procedures None recorded. Surgeries None recorded. Imaging XR, toe(s), 2 or more view 2019 [facility] (Admitting), [address] [facility] [address] [address], [address], 0 11:20:31 XR, foot, 3 or more view 2019 [facility] (Admitting), [address] [address], [place], [address], 0 11:20:31 XR, lumbar spine 2019 [facility] (Admitting), [address] [facility] [address], [place], [address], 0 15:25:32 XR, cervical spine 2019 [facility] (Admitting), [address], [place], [address], 0 15:25:32 Medication Orders pilocarpin e 5 mg tablet 2019 020 [facility] #3259, [address] [place], [address], 0 15:27:35 Diflucan 200 mg tablet 2019 020 [facility]/Pharmacy #3259, [address] [place], [address], 0 10:43:38 fluconazol e 150 mg tablet 2019 020 [facility] #3259, [address] [place], [address], 0 14:34:22 oxybutynin chloride ER 10 mg tablet,ext ended release [address] [facility] [address] [place], [address], 0 14:41:23 cyclobenza niko 10 mg tablet [address] [facility] [address], [address] [place], [address], 0 16:34:49 betamethas one valerate 0.1 % lotion [address] [facility] [address], [address] [place], [address], 0 16:03:20 betamethas one dipropiona te 0.05 % topical cream [address] [facility] [address], [address] [place], [address], 0 16:33:16 AirDuo RespiClick 113 mcg-14 mcg/actuat ion breath activated [address] [facility] [address], [address] [place], [address], 0 16:28:15 ProAir HFA 90 mcg/actuat ion aerosol inhaler [address] [facility] [address] [place], [address], 0 16:28:11 Patient TargetsNo targets recorded. Patient Instructions Encounter Date Encounter Id Patient Instructions Last Modified By Organization Details Last Modified Time 09/11/2019 [id number] bladder training : care instructions jnanney Not available 09/11/2019 16:36:41 kegel exercises: care instructions jnanney Not available 09/11/2019 16:36:40 Stress Incontinence: Care Instructions jnanney Not available 09/11/2019 16:36:40 psoriasis: care instructions jnanney Not available 09/11/2019 16:33:06 11/12/2019 [id number] vaginal yeast infection: care instructions jnanney Not available 11/12/2019 14:34:20 candidiasis: car e instructions jnanney Not available 11/12/2019 14:34:20 12/31/2019 [id number] candidiasis: car e instructions jnanney Not available 12/31/2019 17:09:45 she will have pharmacy call us for refills.. jnanney Not available 12/31/2019 17:05:53 03/11/2020 [id number] candidiasis: car e instructions jnanney Not available [...] Organization Details Recorded Time Low back pain 577226496 Active Harriet Daiglestevan FINA null, [place] - [facility] 6 15:26:30 Pain in toe 307764922 Active Harriet Villegas [place], [place] [facility] 6 15:26:30 Osteomyelit is 33503840 Active Harriet Daiglestevan [place], [place] [facility] 6 15:26:30 Chronic hepatitis 15203022 Completed 09/26/2016 Bryon Smith PA-C Attn: Accountin g,[address] [place], [address], [place] [facility] 7 11:28:49 Complaining of pelvic pain Active Harriet Daiglestevan [place], [place] [facility] 6 15:26:30 Hyperglycem ia 30067536 Active Harriet Daiglestevan [place] [facility] 6 15:26:30 Psoriasis 5365565 Active Liza Leal PA-C Attn: Accountin g,[address] [place], [address], [place] [facility] 6 15:59:19 Chronic depression 264707070 Active Liza Leal PA-C Attn: Accountin g,[address] [facility], [place], [address], [place] [facility] 6 15:59:19 Arthritis 9819936 Active Liza Leal PA-C Attn: Accountin g,[address] [place], [address], [place] [facility] 6 15:59:19 Dry eyes 967610760 Active Liza Leal PA-C Attn: Accountin g,[address] [facility], [place], [address], [facility] - SI 6 15:59:19 Ulcer of mouth 17736450 Active Harriet Villegas MA null, [place] - [facility] 6 15:26:30 History of appendectom y 708543496 Active 2016 Bryon Smith PA-C Attn: Accountin g,[address], [place], [address], [facility] - SI 7 11:28:38 Obesity 322458469 Active 2016 Bryon Smith PA-C Attn: Accountin g,[address], [place], [address], [facility] - SI 7 11:28:39 Chronic hepatitis C 264357733 Active 2016 Bryon Smith PA-C Attn: Accountin g,[address] [facility], [place], [address], [facility] - SI 7 11:28:42 Problem Notes None recorded. Procedures Surgical History Date Name Laterality Status Provider Name and Address Organization Details Recorded Time 11/07/19 14 Date of Last Pap Smear completed Lisa Brewer MA [facility] 02/10/2015 09:42:37 Appendectomy completed Nilda Carrington MA [facility] 06/04/2014 12:19:16 Tonsillectomy completed Nilda Carrington MA [facility] 06/04/2014 12:19:16 Imaging Results None recorded. Procedure Notes None recorded. Medical Equipment None Reported. Allergies No known drug allergies Medications Name Sig Start Date Stop Date Status Note LastModified by Organization Details LastModified Time ventolin hfa 108 mcg/act aers 01/06 completed Not Available Not Available Not Available nystatin 017328 unit/ml susp 01/06 completed Not Available Not [...] Updated DateTime 0 162.56 cm 40.4 kg/m2 418036. 66 g 98 % 98 % 63 /min 112 mm[Hg] 72 mm[Hg] Li Dey MA [facility] 0 16:03:10 Date Recorded Body height Provider Name an d Address Organization Details Last Updated DateTime 03/11/2020 162.56 cm Jackie Brown MA [facility] 03/11 15:18:18 Social History Question Answer Notes LastModified by Organizat ion Details LastModified Time Tobacco Smoking Status Current Every Day Smoker Mily Baez MA null, [facility] 02/05/2020 14:42:06 Do You Have An Advance [...] Response Coronary Artery Disease N Other N Atrial Fibrillation N High Blood Pressure N Depression Y COPD N Blood Clots N Anxiety Disorder N Muscle, Joint, or Bone Problems Y Acid Reflux (GERD) Y Cancer N Stroke N ADHD N High Cholesterol N Liver Disease Y Headaches Y Kidney or Bladder Problems N Thyroid Problems N GI Problems N Skin Problems Y Anemia N Heart Attack (MS) N Diabetes N Seizures/Epilepsy N Asthma Y Allergies N Hepatitis Y Heart Failure N Osteoporosis N Gynecological [...] mL dose 1 completed Hayreen Lawanda [place], [place] - [facility] 12/14/2020 09:12:47 COVID-19, mRNA, LNP-S, PF, 30 mcg/0.3 mL dose 1 completed Hayreen Lawanda bentley [place] - [facility] 12/14/2020 09:13:04 Hep B, adult 7 completed Not Available [facility] 08/01/2019 02:45:29 Influenza, split virus, quadrivalent, preservative 7 completed Not Available [facility] 08/01/2019 02:51:06 Influenza, split virus, quadrivalent, preservative 9 completed Not Available [facility] 08/01/2019 02:47:16 Past Encounters Encounter ID Performer Location Encounter Start Date Encounter Closed Date Diagnosis/Indication Diagnosis SNOMED-CT Code Diagnosis ICD10 Code Diagnosis Note [id number] Sudha Loja MA [facility] [address] [place] [address] 06/04/2014 12:01:17 06/04/2014 14:49:28 Ulcer of mouth 39642330 [id number] Lisa Brewer MA [facility] [address] [place] [address] 09/17/2014 11:27:15 09/17/2014 12:56:57 Low back pain 569408416 Pain in toe 583740712 [id number] Lisa Brewer MA [facility] [address] [place] [address] 09/22/2014 14:17:08 09/22/2014 14:53:03 [facility] [id number] [facility] ([address]) [address] [facility] [address] [place] [address] 02/10/2015 09:24:06 02/10/2015 10:33:18 Gynecologic examination 81152797 [id number] FINA Del Toro [facility] [address] [place] [address] 02/24/2015 11:12:12 02/24/2015 11:46:17 Low back pain 699595675 Chronic hepatitis 22524289 [id number] [facility] [address] [place] [address] 04/13/2015 11:21:16 04/13/2015 12:05:27 Osteomyelitis 94999231 Low back pain 373689267 Chronic hepatitis 20695260 Hyperglycemia 36194024 Psoriasis 6555682 [id number] Herminia Barros [facility] [address] [place] [address] 04/27/2015 11:15:44 04/27/2015 11:49:36 Chronic hepatitis 00279401 K73.9 [id number] Liza Leal PA-C [facility] [address] [place] [address] 05/31/2015 18:18:59 05/31/2015 18:35:02 Chronic depression 048430441 F34.1 [id number] Liza Leal PA-C [facility] [address] [place] [address] 03/20/2016 15:19:38 03/20/2016 16:05:46 Chronic depression 092480902 F34.1 Chronic hepatitis 569481 07 K73.9 Arthritis 1660412 M19.90 Psoriasis 9330638 L40.9 Dry eyes 249229384 H04.1 29 [id number] Liza Leal PA-C [facility] [address] [place] [address] 08/17/2016 14:53:51 08/17/2016 15:52:04 Chronic hepatitis 38053655 B18.2 [id number] Bryon Smith PA-C [facility] [address] [place] [address] 09/26/2016 09:48:01 09/26/2016 12:48:48 Chronic hepatitis C 639326019 B18.2 Genotype 1a 51 y/o C female Dx HCV+ 2004 while attending an inpatient drug rehab program ([place], [place])Risk Factors: +IVDU, +non-profe ssional tattooShe is [...] 1 - 2 months for f/u Obesity 779516638 E66.9 BMI: 39 History of appendectomy 785722425 Z98.890 ~ 5029 [id number] Bryon Smith PA-C [facility] [address] [place] [address] 10/31/2016 09:42:01 11/02/2016 13:05:54 Chronic hepatitis C 849652110 B18.2 Genotype 1a 51 y/o C female Dx HCV+ 2004 while attending an inpatient drug rehab program ([place], [place])Risk Factors: +IVDU, +non-profe ssional tattooShe is [...] of her Fibrosis score and the current [place] HCV Tx formulary restrictio ns.Will initiate the Hep B vaccine series today RTC 12 months Obesity 649075683 E66.9 BMI: 39 History of appendectomy 689891274 Z98.890 ~ 0836 [id number] Li Dey MA [facility] [address] [place] [address] 04/10/2017 10:23:08 04/10/2017 13:38:59 Urinary incontinence 931137685 N39.41 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 Osteoarthritis 347019151 M15.0 Chronic depression 64528 0009 F34.1 Coronary arteriosclerosis 51188141 I25.10 [id number] Liza Leal PA-C [facility] [address] [place] [address] 05/17/2017 11:09:48 05/17/2017 14:00:55 Female stress incontinence 15286974 N39.3 Hematochezia 602960258 K 92.1 Psoriasis of scalp 54964 8008 L40.9 Obstructiv e sleep apnea syndrome 66548347 G47.33 Acute oste omyelitis of phalanx of toe 768044697 M86.179 Administra tion of influenza vaccine 94725312 Z23 [id number] WILLIE Delong-ERICKA [facility] [address] [place] [address] 05/22/2017 13:33:19 06/03/2017 16:33:52 Screening mammography 05676923 Z12.31 Gynecologi c examination 83362285 Z01.029 [id number] Liza Leal PA-C [facility] [address] [place] [address] 08/02/2017 13:35:46 08/02/2017 16:48:15 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 Acute oste omyelitis of phalanx of toe 665502830 M86.179 Onychomycosis 946825636 B35.1 Psoriasis 8533252 L40.0 Ingrowing toenail 622030 009 L60.0 [id number] Harriet Villegas MA [facility] [address] [place] [address] 02/20/2018 11:39:04 02/20/2018 12:57:23 Psoriasis of scalp 661284765 L40.9 Chronic depression 06013 0009 F34.1 Edema of l ower extremity 980643401 R60.0 Fecal occu lt blood: positive 646210565 R19.5 Coronary atherosclerosis 534763283 I25.10 [id number] Liza Leal PA-C [facility] [address] [place] [address] 09/09/2018 11:19:05 09/09/2018 12:57:45 Chronic hepatitis C 839121795 B18.2 Chronic depression 13131 000 F34.1 Hyperglycemia 00397258 R 73.9 Screening for malignant neoplasm of colon 819830497 Z12.11 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 564580732 E06.3 Rheumatoid arthritis 698 01788 M06.867 [id number] Li Dey MA [facility] [address] [place] [address] 11/26/2018 11:49:21 11/26/2018 13:54:38 Screening for malignant neoplasm of colon 441791741 Z12.11 Chronic hepatitis C 1283 93914 B18.2 Prediabetes 016259778 R7 3.03 [id number] Liza Leal PA-C [facility] [address] [place] [address] 03/18/2019 11:52:53 03/18/2019 12:43:22 Arthralgia of the ankle and/or foot 069907247 M79.321 [id number] JOHNATHAN Delong 14 OB [address] [facility] [place] [address] 03/26/2019 11:26:27 03/26/2019 15:50:53 Screening mammography 90003864 Z12.31 Importance of yearly mammograms and sbe exam discussed with pt. Mammogram order given, pt verbalized understand ing. Menopausal syndrome 1237 39695 N95.9 1. Discussed hormonal options and otc [...] for annual or sooner if needed. Smoker 60013870 F17.200 smoking cessation reviewed [id number] Liza Leal PA-C [facility] [address] [place] [address] 04/10/2019 10:55:24 04/10/2019 12:20:27 Chronic hepatitis C 349660680 B18.2 Chronic depression 05430 0009 F34.1 Acute bron chitis with bronchospasm 71988473 J20.8 [id number] ZURI Ramirez 14 IM [address] [place] [address] 04/29/2019 12:12:54 04/29/2019 16:51:16 Chronic hepatitis C 759256340 B18.2 Genotype 1a 51 y/o C female Dx HCV+ 2005 while attending an inpatient drug rehab program ([place], [place])Risk Factors: +IVDU, +non-profe ssional tattooShe is [...] sex acts. RTC next month at the [facility] location. Obesity 471663616 E66.9 BMI: 39.7 History of appendectomy 683571109 Z98.890 ~ 4537 [id number] Bryon Smith PA-C [facility] ([facility]) [address] [place] [address] 06/04/2019 12:13:22 06/04/2019 14:19:15 Chronic hepatitis C 625272001 B18.2 Genotype 1a 51 y/o C female Dx HCV+ 2005 while attending an inpatient drug rehab program ([place], [place])Risk Factors: +IVDU, +non-profe ssional tattooShe is [...] prescribed by Dr. Theodore Burger at [facility] in [place], [place] for pain. Plan:Have placed a call [...] sign a commitment letter. History of appendectomy 391071504 Z98.890 ~ 1988 Morbid obesity 326787682 E66.01 BMI: 40 [id number] Liza Leal PA-C [facility] [address] [place] [address] 09/11/2019 15:51:28 09/11/2019 16:58:19 Acute bronchitis with bronchospasm 52067144 J20.8 Psoriasis 6291005 L40.0 Urinary incontinence [address] Female [address] ess incontinence 90026740 N39.3 [id number] Liza Leal PA-C [facility] [address] [place] [address] 11/12/2019 09:16:10 11/13/2019 14:50:18 Candidiasis of mouth 98650083 B37.0 [id number] Liza Leal PA-C [facility] [address] [place] [address] 12/31/2019 09:54:15 01/01/2020 09:02:13 Chronic depression 196539435 F34.1 Candidiasis of mouth 797 04851 B37.0 [id number] Liza Leal PA-C [facility] [address] [place] [address] 02/05/2020 09:35:03 02/05/2020 14:58:49 Cervical radiculopathy 31309339 M54.12 Lumbar radiculopathy 128 303130 M54.16 [id number] Liza Leal PA-C [facility] [address] [place] [address] 03/11/2020 09:34:15 03/11/2020 15:42:44 Osteomyelitis of ankle AND/OR foot 48174200 M86.8X7 Pain of to e of right foot 3907122258 46973 M79.674 Mucous mem brane dryness 346460110 R68.89 Candidiasis of mouth 797 87019 B37.0 Health Concerns Section Related Observation LastModified by Organization Detai ls LastModified Time None Recorded Concern Status LastModified by Organization Details LastModified Time None Recorded Advance Directives Directive N: Payers Encounter Date Sequence Insurance Name Policy Number Policy Hatch Covered Member ID Hatch Member ID Guarantor Name 09/11/2019 1 [place] Roslyn S Levendoski [id number] Roslyn Levendoski 09/11/2019 2 [place] OR MEDICARE REPLACEMENT PRIMARY) Roslyn Levendoski [id number] Roslyn Levendoski 11/12/2019 1 [place] Roslyn S Levendoski [id number] Roslyn Levendoski 11/12/2019 2 [place]PLACEMENT PRIMARY) Roslyn Levendoski [id number] Roslyn Levendoski 12/31/2019 1 [place] Roslyn S Levendoski [id number] Roslyn Levendoski 12/31/2019 2 [place]IC[place] REPLACEMENT PRIMARY) Roslyn Levendoski [id number] Roslyn Levendoski 02/05/2020 1 [place] Roslyn S Levendoski [id number] Rsolyn Levendoski 02/05/2020 2 [place] MEDIC[place] REPLACEMENT PRIMARY) Roslyn Levendoski [id number] Roslyn Levendoski 03/11/2020 1 [place] Roslyn S Levendoski [id number] Roslyn Levendoski 03/11/2020 2 [place] OR MEDIC[place] REPLACEMENT PRIMARY) Roslyn Char [id number] Roslyn Char Notes Date Note Type Note Provider Name and Address Organization Details Recorded Time 09/11/2019 text/html 54 y/o female presents for routine f/u. No complaints. Liza Leal PA-C Attn: Accounting,[address] [place], [place], [address] [place] [address], [facility] 09/11/2019 16:37:33 11/12/2019 text/html sore throat feels like thrush...has had it before with advair... Liza Leal PA-C Attn: Accounting,[address] [place], [place], [address] [place] [address], [facility] 11/12/2019 14:36:50 12/31/2019 text/html her physician left needs refills.. Liza Leal PA-C Attn: Accounting,[address] [place], [address] [place] [address], [facility] 12/31/2019 17:10:04 02/05/2020 text/html feet and hands getting numb..feet feel likes blocks of wood..hx of sciatica Liza Leal PA-C Attn: Accounting,[address] [place], [address] [place] [address], [facility] 02/05/2020 14:50:25 03/11/2020 text/html pain in great toe ( both feet ) needs xrays...also thrush is returning Liza Leal PA-C Attn: Accounting,[address] [place], [address] [place] [address], [facility] 03/11/2020 15:29:57 OBGyn Episode Ob Episode Information Episode Created Date Number of Fetuses Patient Bloodtype Patient rh Status Prepregnancy Weight lbs Domestic Partner Domestic Partner Phone Father Name Solar Installation Foreman Status 05/22/20 17 1 CLOSED Fetus Data First Name Last Name Admitted to NICU Weight (g) Sex Living Outcome Pediatric Complications Fetus ID Race Codes Race Delivery Type [id number] Geoffrey Calculation Initial Geoffrey Date Initial Exam [...] Domestic Partner Domestic Partner Phone Father Name Solar Installation Foreman Status 05/22/20 17 1 CLOSED Fetus Data First Name Last Name Admitted to NICU Weight (g) Sex Living Outcome Pediatric Complications Fetus ID Race Codes Race Delivery Type F Full Term [id number] Geoffrey Calculation Initial Geoffrey Date Initial Exam [...] Domestic Partner Domestic Partner Phone Father Name Solar Installation Foreman Status 05/22/20 17 1 CLOSED Fetus Data First Name Last Name Admitted to NICU Weight (g) Sex Living Outcome Pediatric Complications Fetus ID Race Codes Race Delivery Type F Full Term [id number] Geoffrey Calculation Initial Geoffrey Date Initial Exam [...]
--- OUTSIDE RECORDS SUMMARY | 2024-11-05 08:57 | XMS_ITS | Encounter Summary ---
Author Organization [facility] Address [address] [place] [address] Care Team Providers Care Seafood Team Member Name Role Phone Enrique Gandhi MD Primary Care Provider [phone] Anupama Cuba DO Primary Care Provider +- [phone] Janet You PA-C Primary Care Provider [phone] Reason for Visit * Reason Onset Date Comments MEDICATION REFILL 02/12/2018 Encounter Details Date Type Department Care Team (Late st Contact Info) Description 02/12/2018 Refill [facility] [address] [place] [address] Mary Jo Dukes MD [address] [address] MEDICATION REFILL Social History Tobacco Use Types Packs/Day Years Used Date Smoking Tobacco: Never Assessed Comments Unknown Sex and Gender Information Value Date Recorded Sex Assigned at Not on file 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 Gender Identity Not on file Sexual Orientation Not on file documented as of this encounter Plan of Treatment Not on file documented as of this encounter Visit Diagnoses Not on filedocumented in this encounter Care Teams Seafood Team Member Relationship Specialty Start Date End Date Enrique Gandhi MD [address] [place] [address] [place] [address] PCP - General Family Medicine 06/20/16 11/02/20 Anupama Cuba DO [address] [facility] [address] [place] [address] PCP - General 11/03/20 07/10/22 Janet You, BRYANC [address] [facility] [address] PCP - General 07/11/22 documented as of this encounter
--- OUTSIDE RECORDS SUMMARY | 2024-11-05 08:57 | XMS_ITS | Encounter Summary ---
Author Organization [facility] Address [address] [place] [address] Care Team Providers Care Licensed Professional Counselor Name Role Phone Enrique Gandhi MD Primary Care Provider [phone] Anupama Cuba DO Primary Care Provider +- [phone] Janet You PA-C Primary Care Provider [phone] Reason for Visit * Reason Onset Date Comments MEDICATION REFILL 01/06/2018 Encounter Details Date Type Department Care Team (Late st Contact Info) Description 01/06/2018 Refill [facility] [address] [place] [address] Mary Jo Dukes MD [address] [place] [address] MEDICATION REFILL Social History Tobacco Use Types Packs/Day Years Used Date Smoking Tobacco: Never Assessed Comments Unknown Sex and Gender Information Value Date Recorded Sex Assigned at Not on file 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 [address] PCP - General 07/11/22 documented as of this encounter
--- OUTSIDE RECORDS SUMMARY | 2024-11-05 08:57 | XMS_ITS | Clinical Summary ---
Author Organization [facility] Address [facility] [facility] [place] [address] Care Team Prov[address] Care [address] Traffic Controller Name Role Phone Janet You PA-C Primary Care Provider [phone] Source Comments [facility],non-owned Affiliates and Associated Physician Practices is amultiple site organization consisting of ambulatory clinics and hospital sitesin [place], [place], [place] and [place]. This disclosure is being madepursuant to the Care Everywhere program and may not contain all information available regarding this patient. Last updated 18.[facility] Allergies No known active allergies Medications * Be aware that medications may not be up to date on this document. Alwaysverify current medications with the patient. aspirin EC (ECOTRIN) 81 MG tablet aspirin 81 mg tablet,delayed release Active atorvastatin (LIPITOR) 40 MG tablet 1 Active carvedilol (COREG) 12.5 MG tablet carvedilol 12.5 mg tablet Active cloNIDine (CATAPRES) 0.2 MG tablet clonidine HCl 0.2 mg tablet Active cyclobenzaprin e (FLEXERIL) 10 MG tablet TAKE 1 TABLET BY MOUTH DAILY AT BEDTIME NEEDED 0 Active DULoxetine (CYMBALTA) 60 MG capsule duloxetine 60 mg capsule,delayed release Active DULoxetine (CYMBALTA) 30 MG capsule 1 Active albuterol HFA (PROVENTIL;JULISSA TOLIN;PROAIR) 108 (90 Base) MCG/ACT inhaler Inhale 2 puffs by mouth every 4 hours as needed 0 Active levothyroxine (SYNTHROID) 150 MCG tablet Take 150 mcg by mouth once daily Active lisinopril (PRINIVIL;ZEST RIL) 5 MG tablet 10 mg 1 Active meloxicam (MOBIC) 15 MG tablet meloxicam 15 mg tablet Active methadone (DOLOPHINE) 10 MG tablet Take 200 mg by mouth once daily Active mirabegron ER 24hr (MYRBETRIQ) 25 MG tablet Myrbetriq 25 mg tablet,extended release TAKE 1 TABLET BY MOUTH EVERY DAY 1 Active mometasone (ELOCON) 0.1 % solution (lotion) APPLY THIN LAYER TOPICALLY TO THE AFFECTED AREA TWICE DAILY 1 Active nitroGLYCERIN (NITROSTAT) 0.4 MG tablet Nitrostat 0.4 mg sublingual tablet Active omeprazole (PRILOSEC) 20 MG capsule omeprazole 20 mg capsule,delayed release Active pilocarpine hcl, oral, (SALAGEN) 5 MG tablet Take 5 mg by mouth as needed 1 Active spironolactone (ALDACTONE) 25 MG tablet spironolactone 25 mg tablet Active zolpidem (AMBIEN) 5 MG tablet as needed 0 Active budesonide (PULMICORT) 0.25 MG/2ML nebulizer suspension Inhale 0.25 mg by mouth 2 times daily Active furosemide (LASIX) 20 MG tablet Take 20 mg by mouth once daily Active clobetasol (TEMOVATE) 0.05 % solution 2 times daily 1 Active calcipotriene (DOVONEX) 0.005 % ointment 1 Active Active Problems Problem Noted Date Diagnosed Date Obstructive sleep apnea (adult) (pediatric) 03/16 Smoking 01/28/2021 Overview (10/14/2024): IMO 10/14/2024 Disorder of toe 10/11/2020 Chronic venous insufficiency 09/27/2020 Ingrown left greater toenail 09/25/2017 Pain of left great toe 09/25/2017 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 Myalgia and myositis 09/20/2014 [...] = 0.6 oz pur e alcohol) Comments Unknown Sex and Gender Information Value Date Recorded Sex Assigned at Not on file 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 Gender Identity Not on file Sexual Orientation [...] 50+ (1 of 2 - PCV) 1984 ZOSTER VACCINE (1 of 2) 2015 COVID-19 VACCINE (3 - 2023- season) 2024 10/28/2020, 10/07/2020 SCREENING FOR DIABETES 05/09/2024 , 02/07/2021, 12/09/2020, Additional history exists DEPRESSION SCREENING 07/15/2024 INFLUENZA VACCINE (Season Ended) 2025 04/10/2019, 05/17/2017 HEPATITIS C SCREENING Completed 05/05/2021 , 05/05/2021, 05/02/2021, Additional history exists HIB VACCINE Aged Out No longer eligi ble based on patient's age to complete this topic HPV VACCINE Aged Out No longer eligi ble based on patient's age to complete this topic MENINGOCOCCAL (Group B) VACCINE SHARED DECISION-MAKING Aged Out No longer eligible based on patient's age to complete this topic MENINGOCOCCAL GROUPS A/C/Y/W VACCINE Aged Out No longer eligible based [...] CDT Chronic hepatitis C without hepatic coma HEPATITIS C RNA QUANTITATIVE 05/02/2021 8:49 AM [...] approximately 13% higher for people identified as -Colombian. eGFR by MDRD 57(L) > OR = [...] 29 U/L [facility] Comment: Test Performed at: [facility] [address] [address] TORSTEN BROWN DO,MPH Blood BLOOD SPECIMEN / Unknown 05/09/2021 8:47 AM CDT 05/09/2021 8:48 AM CDT us Regina Deluca MARINE FIREFIGHTER-GAS TORCH [facility] - CHEMISTRY LEIDY NELSON Final Result Performing Organization Address City/State/[facility] Co de Phone Number [facility] [address] [place] [address] * HEPATITIS C RNA QUANTITATIVE (05/02/2021 8:49 [...] of this assay have been determined by [employer]. The modifications have not been cleared or approved by the FDA. This assay has been validated pursuant to the CLIA regulations and is used for clinical purposes. For more information on this test, go to: http://education.Hansen [employer]/faq/RWC12b0 (This link is being provided for informational/ educational purposes only.) REPORT COMMENT: CC DR Lynnette LE Test Performed at: [facility] [address] [place] [address] TORSTEN BROWN DO,MPH 05/02/2021 8:49 AM CDT 05/02/2021 8:49 AM CDT us Regina Deluca MARINE FIREFIGHTER[facility] - CHEMISTRY ORDE LESLIE Final Result [facility] [address] [place] [address] from Last 3 Months or Most Recently Relevant to Health Maintenance Insurance [facility] MEDICAID - [place] MEDICARE MEDICAID - OUT OF STATE AETNA Care Teams Road Traffic Controller Relationship Specialty Start Date End Date Janet You PA-C [address] [place] [address] PCP - General 07/11/22
--- OUTSIDE RECORDS SUMMARY | 2024-11-05 08:57 | XMS_ITS | Encounter Summary ---
Author Organization [facility] Address [address] [place] [address] Care Team Providers Care Domestic Cleaner Name Role Phone Enrique Gandhi MD Primary Care Provider [phone] Anupama Cuba DO Primary Care Provider [phone] Janet You PA-C Primary Care Provider [phone] Reason for Visit * Reason Onset Date Comments MEDICATION REFILL 07/28/2018 Encounter Details Date Type Department Care Team (Late st Contact Info) Description 07/28/2018 Refill [facility] [address] [place] [address] Mary Jo Dukes MD [address] [place] [address] MEDICATION REFILL Social History Tobacco Use Types Packs/Day Years Used Date Smoking Tobacco: Never Assessed Comments Unknown Sex and Gender Information Value Date Recorded Sex Assigned at Not on file 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 Gender Identity Not on file Sexual Orientation Not on file documented as of this encounter Plan of Treatment Not on file documented as of this encounter Visit Diagnoses Not on filedocumented in this encounter Care Teams Domestic Cleaner Relationship Specialty Start Date End Date Enrique Gandhi MD [address] [place] [address] [place] [address] PCP - General Family Medicine 06/20/16 11/02/20 Anupama Cuba DO [address] [facility] [address] [place] [address] PCP - General 11/03/20 07/10/22 Janet You, BRYANC [address] [place] [address] PCP - General 07/11/22 documented as of this encounter
--- OUTSIDE RECORDS SUMMARY | 2024-11-05 08:57 | XMS_ITS | Encounter Summary ---
Author Organization [facility] Address [address] [place] [address] Care Team Providers Care Firewood Cutter Name Role Phone Anupama Cuba MD Primary Care Provider [phone] Nemesio Antony MD Unavailable Nemesio Antony MD Unavailable Encounter Details Date Type Department Care Team (Late st Contact Info) Description 09/26/2020 Abstract [facility] [address] [place] [address] Nemesio Antony MD [address] [facility], [address] [place] [address] Social History Tobacco Use Types Packs/Day Years [...] on file Legal Sex Female 9:52 PM FAILURE ANALYSIS TECHNICIAN Gender Identity Not on file Sexual Orientation [...] Rule Out 12/05/2019 12/05/2019 06/05/2021 3:01 PM FAILURE ANALYSIS TECHNICIAN documented as of this encounter Care Teams Firewood Cutter Relationship Specialty Start Date End Date Anupama Cuba MD [address] [place] [address] PCP - General FAMILY PRACTICE 08/26/20 Nemesio Antony MD [address] [place] [address] Vascular/Backshoe Person INTERNAL MEDICINE 08/26/20 Nemesio Antony MD [address] [place] [address] Consulting Physician INTERNAL MEDICINE 01/05/22 documented as of this encounter
--- OUTSIDE RECORDS SUMMARY | 2024-11-05 08:57 | XMS_ITS | Clinical Summary ---
Author Organization [facility] Address [address] [place] [address] Phone Care Team Providers Care Logistics Support Name Role Phone Ck Leal Primary Care Provider [phone] Allergies No known active allergies Medications DULoxetine [...] Date Smoking Tobacco: Every Day Cigarettes 0.5 7.9 Started: 12/13/2016 Smokeless Tobacco: Never Tobacco Cessation:Ready [...] Date Last Done Comments TdaP Immunization 1965 Colonoscopy 2010 Colorectal Cancer Screening 2010 Cologuard 2015 Immunochemical Fecal Occult Blood 2015 Pneumococcal Immunization (5 0+ years) (1 [...] topic Insurance MEDICARE [place]ICAID [place] Care Teams Logistics Support Relationship Specialty Start Date End Date Ck Leal PAC [address] [place] [address] PCP - General Physician Slot Floorman 07/27/15
--- OUTSIDE RECORDS SUMMARY | 2024-11-05 08:58 | XMS_ITS | Clinical Summary ---
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 angina pectoris 09/07/2022 History of cardiac arrest 09/07/2022 Encounters Date Type Department Care Team Description 09/02/2024 Telephone [facility] Cardiology [address] [place] [address] Indira Freeman MD from Last 3 Months Surgical History Surgery [...] on file Legal Sex Female 7:28 PM MEDICAL EQUIPMENT SALES Gender Identity Not on file Sexual Orientation Not on file Obstetrics History Last Filed Vital Signs Vital Sign Reading Time Taken Comments Blood Pressure 146/82 06/24/2024 8:01 AM MEDICAL EQUIPMENT SALES Pulse 61 06/24/2024 8:01 AM MEDICAL EQUIPMENT SALES Temperature 36.9 C (98.4 F) 11/01/2023 7:40 AM CDT Respiratory Rate 16 11/01/2023 9:28 AM CDT Oxygen Saturation 99% 06/24/2024 8:01 AM MEDICAL EQUIPMENT SALES Inhaled Oxygen Concentration - - Weight 99.8 kg (220 lb) 06/24/2024 8:01 AM MEDICAL EQUIPMENT SALES Height 162.6 cm (5' 4 ) 06/24/2024 8:01 AM MEDICAL EQUIPMENT SALES Body Mass Index 37.76 06/24/2024 8:01 AM MEDICAL EQUIPMENT SALES Plan of Treatment Health Maintenance Due Date Last Done Comments Cervical Cancer Screening 1965 Colon Cancer Screening-Colonoscopy 1965 Depression Screening 1965 DTaP/Tdap/Td Vaccine (1 - Tdap) 1976 Regular Well Visit/Exam 18-64 1983 Zoster Vaccine (1 of 2) 2015 Breast Cancer Screening-Mammogram 02/08/2023 02/08/2022, 02/08/2022, 06/14/2017 Covid-19 Vaccine (3 - 2023-2 5 season) 2024 10/28/2020, 10/07/2020 Influenza Vaccine (Season Ended) 2025 04/10/2019, 05/17/2017, 10/08/2014 Hepatitis B Screening Completed 10/31/2016 Hepatitis C Screening Completed 05/12/2019 , 04/30/2019 Pneumococcal vaccine <65 Aged Out No longer eligible based on patient's age to complete this topic Insurance AET MEDICARE GOLD IDMO AETNA MEDICARE GOLD IDMO [facility] Advance Directives For more information, please contact: [phone] * Full Code (Latest Code Status on File) Date Activated Date Inactivated Comments 11/01/2023 8:52 AM 11/02/2023 4:37 AM * Full Code Date Activated Date Inactivated Comments 05/29/2023 10:01 AM 05/30/2023 4:39 AM Care Teams Art Objects Salesperson Relationship Specialty Start Date End Date Anupama Cuba MD [address] [facility] [place] [address] PCP - General Family Medicine 09/27/22
--- OUTSIDE RECORDS SUMMARY | 2024-11-05 08:58 | XMS_ITS | Data Portability ---
Author Organization [facility], [address] [facility] ([place]) Address [address] [place] [address] Care Team Providers Care Cement Cutter Name Role Phone ANUPAMA CUBA Primary Care [...] l 0.05 % scalp solution 2023 024 [id number] [facility]/Pharmacy #[id number], [address] [place], [address], 01/28/2024 12:09:45 calcipotr iene 0.005 % topical ointment 2023 024 [id number] [facility]/Pharmacy #[id number], [address] [place], [address], 01/28/2024 12:09:45 Patient TargetsNo targets recorded. Patient InstructionsNo instructions recorded. Reason for Referral None Reported. Results Created Date Observation Date Name Description Value Unit Range Abnormal Flag Note LastModifiedBy Organization Detail LastModifiedTime Result Notes None recorded. Problems Name Problem SNOMED Code Status Onset Date Resolution Date Notes Provider Name and Address Organization Details Recorded Time Psoriasis 2526557 [facility]/28/2024 11:29:49 Notes:Some problems listed i n Document: #[id number] could not be added to this patient's chart. Please review this document and add these problems to the patient's chart manually as needed. Problem Notes None recorded. Medical Equipment None Reported. Allergies Allergen ID Allergen Name Allergen Category Reaction Reaction Severity Criticality Documentation Date Start Date Code Code System Note Provider Name and Address Organization Details Recorded Time 0695507 fluocinon estevan medicatio n rash Not available Not available 08/14/20232021 4462 RxNorm React ion: Blist ers; Not Available Not Available Not Available 4973063 methotrex ate medicatio n Not available Not available Not available 08/14/20232021 6851 RxNorm React ion: Blist ers; Nause a; Myalg ia; Not Available Not Available Not Available 982596 Product containin g penicilli n (product) medicatio n Not available Not available Not available 08/12/20232005 00369 8001 SNOMED Not Available Not Available Not [...] SNOMED-CT Code Diagnosis ICD10 Code Diagnosis Note [id number] YANDY GARCIA MD [facility] [address] [place] [address] 01/28/2024 11:20:03 01/28/2024 11:44:29 Psoriasis 6029558 L40.9 Chronic plaque psoriasis, controlled with humira [...] Member ID Guarantor Name 01/28/2024 1 AETNA [id number] Roslyn Sanz Char [id number] Roslyn Sanz Char 01/28/2024 2 [place]: [place] A[place] Roslyn Laoalli [id number] Roslyn Sanz Char Notes Date Note Type [...] was 12/13/22. YANDY GARCIA MD [address] [place] [address], [phone], [facility] 01/28/2024 12:05:06 OBGyn Episode No OBEpisode recorded.
--- OUTSIDE RECORDS SUMMARY | 2024-11-05 08:58 | XMS_ITS | Clinical Summary ---
Author Organization [facility] Address [address] [place] [address] Care Team Providers Care Hot Metal Crane Operator Name Role Phone Anupama Cuba MD Primary Care Provider [phone] Nemesio Antony MD Unavailable Allergies Active Allergy [...] Treatment (MAT),PATIENT REPORTED THIS DOSE DAILY FROM [facility] Take 8 tablets (80 mg total) by mouth daily. Indications: Medication-Assist ed Treatment (MAT), PATIENT REPORTED THIS DOSE DAILY FROM [facility] Active aspirin 81 MG tabletIndication s:Anticoagulant Therapy,hasn't [...] times daily. 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.] PA-C MAMMO Final Resul t * COLOGUARD ([email or web address]) (10/24/2020 7:30 AM CDT) COLOGUARD RESULT Negative Not Applicable [employer] (CLIA #:[id number]) Comment: A negative result indicates a low [...] (Dwayne Brooks al, N Engl J Med 2014;370(14):4872-0495) The normal value (reference range) for this assay is negative. COLOGUARD RE-SCREENING RECOMMENDATION: Periodic routine colorectal cancer screening is an important part of preventive healthcare for asymptomatic persons at average risk for colorectal cancer. Following a negative Cologuard result, the Scottish Cancer Society and U.S. Multi-Society Task Force screening guidelines recommend a Cologuard re-screening interval of 3 years. References: Scottish Cancer Society (ACS). Colorectal cancer prevention and early detection. [place], [place]: Scottish Cancer Society; [updated 2015Nov 05]. https://www.cancer.org/cancer/jfcgb-xmznzg-hddnfq/dixitksvx-uiookjluk-xtzykpq/ac s-rec ommendations.html. Accessed March 14, 2018; Thomas DK, Sebastian CR, Noah OTERO, Colorectal Cancer Screening: Recommendations for Physicians and Patients from the U.S. Multi-Society Task Force on Colorectal Cancer Screening, Am J Gastroenterology 2017; 112:8290-2105. TEST TYPE: Composite algorithmic analysis of stool [...] interval of every 3 years by the [place] Cancer Society and U.S. Multi-Society Task Force. [...] can be accessed at the following location: www.Nexvet.Spyder Lynk/results. Additional description of the Cologuard test process, warnings and precautions can be found at www.cologuardtest.com. Rx only. Stool specimen (specimen) STOOL SPECIMEN / Unknown 10/24/2020 7:30 AM CDT 10/25/2020 12:27 PM CDT Marilyn Fuller NP BODY FLUIDS AND STOOLS ORDERABLE S Final Result [employer] ([facility]) [address] [place] [address], [employer] (CLIA #:[id number]) [place] [address] * COLONOSCOPY/EGD (01/06/2019) us Documents Scanned SCANNING Edited Result - Final from Last 3 Months or Most Recently Relevant to Health Maintenance Insurance MEDICAID AETNA AETNA Advance Directives Documents on File Type Date Recorded Patient Key Ringer Expl anation Advance Directives and Living Will 12/08/2019 12:00 AM ADVANCED DIRECTIVES Advance Directives and Living Will 01/06/2019 12:00 AM ADVANCED DIRECTIVES Care Teams Hot Metal Crane Operator Relationship Specialty Start Date End Date Anupama Cuba MD [address] [place] [address] PCP - General FAMILY PRACTICE 08/26/20 Nemesio Antony MD [address] [place] [address] Consulting Physician INTERNAL MEDICINE 01/05/22
--- OUTSIDE RECORDS SUMMARY | 2024-11-05 08:58 | XMS_ITS | Referral Summary ---
Author Organization [facility] Medical Office Building B Address [address] [place] [address] Care Team Providers Care Asset Manager Name Role Phone Anupama Cuba MD Primary Care Provider Encounters Date Type Department Care Team Description 09/02/2024 Telephone [facility] Cardiology [address] [place] [address] Indira Freeman MD from Last 3 Months Allergies Active Allergy [...] daily 04/18/20 22 Active adalimumab (Humira,CF, Pen Jtjr-Qh-Qkgf HS) 80 mg/0.8 mL-40 mg/0.4 mL pen [...] mg total) by mouth daily 15 tablet 11 06/20 025 Active cyanocobalamin (Vitamin B-12) 1,000 mcg [...] tachycardia 09/07/2022 Coronary artery disease invo lving igiugig coronary artery of igiugig heart without angina pectoris 09/07/2022 History of [...] on file Legal Sex Female 7: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 Gender Identity Not on file Sexual Orientation Not on file Last Filed Vital Signs Vital Sign Reading Time Taken Comments Blood Pressure 146/82 06/24/2024 8:01 AM AUTOMOTIVE 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 Pulse 61 06/24/2024 8:01 AM AUTOMOTIVE 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 Temperature 36.9 C (98.4 F) 11/01/2023 7:40 AM CDT Respiratory Rate 16 11/01/2023 9:28 AM CDT Oxygen Saturation 99% 06/24/2024 8:01 AM AUTOMOTIVE 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 Inhaled Oxygen Concentration - - Weight 99.8 kg (220 lb) 06/24/2024 8:01 AM AUTOMOTIVE 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 Height 162.6 cm (5' 4 ) 06/24/2024 8:01 AM AUTOMOTIVE 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 Body Mass Index 37.76 06/24/2024 8:01 AM AUTOMOTIVE 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 Plan of Treatment Not on file Insurance AETNA MEDICARE GOLD IDPR AETNA MEDICARE GOLD IDPA AETNA [facility] Advance Directives For more information, please contact: [phone] * Full Code (Latest Code Status on File) Date Activated Date Inactivated Comments 11/01/2023 8:52 AM 11/02/2023 4:37 AM * Full Code Date Activated Date Inactivated Comments 05/29/2023 10:01 AM 05/30/2023 4:39 AM Care Teams Asset Manager Relationship Specialty Start Date End Date Anupama Cuba MD [address] [place] [address] PCP - General Family Medicine 09/27/22
[2024-11-05 09:09] LABS: Creatinine Urine 21.45 mg/dL (40-278); Total Protein Urine Random 13.4 mg/dL (0.0-11.9); Ur Ttl Prot Creatinine Ratio 0.62 mg/mg (0-0.20)
[2024-11-05 09:13] LABS: Albumin Level 3.5 g/dL (3.4-5.0); Anion Gap 8 mmol/L (4-12); Blood Urea Nitrogen 17 mg/dL (7-18); Calcium 8.8 mg/dL (8.5-10.1); Carbon Dioxide 28 mmol/L (21-32); Chloride 105 mmol/L (98-108); Estimated Glomerular Filt Rate 40; Glucose 131 mg/dL (70-99); Osmolality Calculated 295 mOsm/kg (285-295); Phosphorus 3.9 mg/dL (2.6-4.7); Potassium 4.1 mmol/L (3.5-5.1); Sodium 141 mmol/L (136-145)
[2024-11-07 05:14] LABS: Vitamin D 25 Hydroxy 20 ng/mL (30-100)
== END 2024-11-05 08:35 | disposition home or self-care (01) ==
LOC: CHSLAB 08:39
PROVIDERS: PCP Family Medicine; Visit Provider Internal Medicine Nephrology
DX: I12.9 Hypertensive chronic kidney disease with stage 1 through stage 4 chronic kidney disease, or unspecified chronic kidney disease (principal); N18.32 Chronic kidney disease, stage 3b; E55.9 Vitamin D deficiency, unspecified
CPT/HCPCS: 36415; 80069; 82306; 82570; 84156

== ENCOUNTER 2024-11-13 18:41 | Emergency (ER) | payer MEDICARE, MEDICAID, SELFPAY ==
[2024-11-13 18:36] VITALS: BP 178/92; PULSE 70; RESP 16; TEMP 36.8; O2SAT 97
[2024-11-13 19:06] LABS: Basophils Percent Auto 0.1 % (0.2-1.2); Eosinophils Percent Auto 0.2 % (0-4.4); Hematocrit 39.7 % (37.0-47.0); Hemoglobin 12.8 g/dL (12.0-15.0); Immature Granulocyte Absolute 0.08 K/mm3 (0.00-0.031); Immature Granulocyte Percent A 0.5 % (0-0.5); Lymphocytes Absolute Auto 1.67 K/mm3 (0.9-3.2); Lymphocytes Percent Auto 10.5 % (18.3-44.2); Mean Corpuscular HGB Conc 32.2 g/dl (32-36); Mean Corpuscular Hemoglobin 29.2 pg (26-34); Mean Corpuscular Volume 90.6 fl (80-100); Mean Platelet Volume 9.8 fl (7.4-10.4); Monocytes Absolute Auto 0.8 K/mm3 (0.1-0.6); Neutrophils Absolute Auto 13.3 K/mm3 (1.3-6.7); Neutrophils Percent Auto 83.7 % (45.5-73.1); Platelet Count Result 299 k/mm3 (150-375); Red Blood Count 4.38 M/mm3 (4.2-5.4); Red Cell Distribution Width 14.3 % (11.5-14.5); White Blood Count 15.9 K/mm3 (4.5-10.0)
[2024-11-13 19:16] LABS: Alanine Aminotransferase 22 U/L (6-35); Albumin Level 4.5 g/dL (3.5-5.1); Alkaline Phosphatase 106 U/L (38-126); Anion Gap 12 mmol/L (4-12); Aspartate Amino Transferase 38 U/L (14-36); Bilirubin,Total 0.6 mg/dL (0.2-1.3); Blood Urea Nitrogen 17 mg/dL (7-17); Calcium 9.7 mg/dL (8.4-10.2); Carbon Dioxide 25 mmol/L (22-30); Chloride 101 mmol/L (98-107); Estimated CRCL calculation 59 ml/min; Estimated Glomerular Filt Rate 55; Glucose 110 mg/dL (65-110); Lipase 62 U/L (23-300); Potassium 3.6 mmol/L (3.4-5.0); Sodium 138 mmol/L (137-145)
[2024-11-13 19:44] LABS: Add Urine Microscopic? YES; Appearance Urine Clear (Clear); Bacteria Urine None Seen /hpf; Bilirubin Urine Negative (Negative); Blood Urine Trace (Negative); Color Urine Yellow (Yellow); Glucose Urine UA Negative (Negative); Ketones Urine Negative (Negative); Leukocyte Esterase Ur 3+ LEU/UL (Negative); Nitrate Urine Negative (Negative); Non Pathogenic Casts 0-2; Protein Urine Negative (Negative); RBC Urine 0-2 /hpf (0-2); Specific Grav Ur 1.008 (1.001-1.035); Squamous Epithelial Cell Urine Occasional /hpf (Few); Urobilinogen Urine 0.2 mg/dL (<2.0); WBC Urine >100 /hpf (0-3)
[2024-11-13] MEDS: SODIUM CHLORIDE 0.9% IV 1,000 ML 999 ML IV CONT (19:53)
[2024-11-13] MEDS: ONDANSETRON INJ 4 MG/2 ML VIAL IV PUSH (19:54)
[2024-11-13 19:56] VITALS: BP 183/99; PULSE 76; RESP 17; O2SAT 99
[2024-11-13 20:03] LABS: Magnesium 1.7 mg/dL (1.6-2.3)
[2024-11-13] MEDS: METOCLOPRAMIDE HCL INJ 10 MG/2 ML VIAL IV PUSH (20:13)
[2024-11-13] MEDS: diphenhydrAMINE HCl INJ 50 MG/ML VIAL 25 MG IV PUSH (20:13)
--- NOTE | 2024-11-13 20:22 | ED_ITS ---
HPI - General Adult General Chief complaint: Nausea/Vomiting/Diarrhea Stated complaint: N/V/D Time Seen by Provider: 11/13/24 19:04 History of Present Illness HPI narrative: Patient is a 59-year-old female who presents to the emergency department this evening complaining of nausea, vomiting and diarrhea for the past 24 hours. Patient states that she is unable to keep any fluid or food down including her medications. Denies any abdominal pain, chest pain, recent illness, fevers or chills. There are no additional modifying, alleviating, or precipitating factors at this time. Related Data Home Medications ?Medication ?Instructions ?Recorded ?Confirmed ?Last Taken ?Type clonidine HCl 0.2 mg tablet 0.2 mg PO DAILY 12/06/19 11/09/24 08/26/23 History duloxetine 30 mg capsule,delayed 30 mg PO HS 12/06/19 11/09/24 08/25/23 History release duloxetine 60 mg capsule,delayed 60 mg PO DAILY 12/06/19 11/09/24 08/26/23 History release omeprazole 20 mg capsule,delayed 20 mg PO DAILY 12/06/19 11/09/24 08/26/23 History release adalimumab 40 mg/0.4 mL 40 mg subcut [id number] 11/29/22 11/09/24 05/26/23 History subcutaneous pen kit (Humira(CF) Pen) atorvastatin 40 mg tablet 40 mg PO QPM 02/28/23 11/09/24 08/25/23 History potassium chloride 20 mEq 20 meq PO USEASDIRECTD 02/28/23 11/09/24 06/11/23 History tablet,extended release(part/cryst) (Klor-Con M) methadone 40 mg soluble tablet 110 mg PO DAILY 03/09/23 11/09/24 09/03/23 History clobetasol 0.05 % scalp solution 1 applic topical DAILY 04/30/23 11/09/24 08/26/23 History levothyroxine 200 mcg capsule 200 mcg PO DAILY 08/26/23 11/09/24 08/26/23 History Allergies Allergy/AdvReac Type Severity Reaction Status Date / Time adhesive Allergy Unknown BLISTERS Verified 11/09/24 14:30 methotrexate Allergy Rash Verified 11/09/24 14:30 Review of Systems 2 Review of Systems: All systems are reviewed and are negative unless stated otherwise in the HPI. 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 Asthma Rheumatoid arthritis Chronic back pain Anxiety with depression Hepatitis C Meningitis Kidney stone Skull fracture Overactive bladder Syncope and collapse Seizures Hyperlipidemia Hypertension Surgical History Surgical History History of vein stripping History of cardiac catheterization History of tubal ligation (01/2004) History of appendectomy Family History Family History Father Malignant neoplasm of prostate Hypertension Renal disease Heart disease Mother Hypertension Heart disease Thyroid disorder Grandparent Cancer Hypertension Heart disease Cerebrovascular accident Son Asthma Grandparent Cancer Heart problem Social History Social History Social History: Rsolyn has gotten her flu, tetanus, and pneumonia vaccine. Has had a colonoscopy. Has had a blood transfusion back in 1968(date unknown). She drinks 6 cups of cola/day. Surrogate medical decision maker: Mindi Ríos, mother. Code status: Full code. Smoking packs per day: 1 Smoking cigarettes per day: 20.0 Years smoked: 35 Smoking pack-years: 35.00 Smoking status: Current every day smoker Tobacco type: e-cigarettes/vaping Second hand tobacco smoke exposure: Yes Additional smoking assessment comments: PT USES E-CIGARETTES NOW, VAPE Alcohol intake: never Substance use: former Substance use type: heroin Other substance usage details: METHADONE DAILY Last use: 2019 Do You Feel Safe in your Home?: Yes Lack of Transportation: YES Lack of Food: Sometimes True Current Housing: I Have Housing Concerned About Future Housing: No Difficulty Paying Gas/Electric Bills: YES Difficulty Paying for Meds: No Currently Unemployed: No Education: High School Diploma/GED Difficulty w/ Childcare or Family Care: No Living arrangements: with family Additional living arrangements comments: . Lives in [place] with son and daughter. Occupation/Education: other Additional occupation/education comments: Disabled. Gender identity (if verbalized by the patient): Female Sexual Orientation (if Verbalized by the Patient): Straight or Heterosexual Spiritual care concerns: No Agree to blood products: Yes Exam 2 Narrative: General: Alert, awake, afebrile, in no acute distress. HEENT: PERRL, no rhinorrhea, no post nasal drip, oropharynx clear. Neck: Trachea midline, no JVD, no lymphadenopathy. Cardiovascular: Regular rate and rhythm, no murmurs, rubs or gallops, no peripheral edema. Respiratory: Clear to auscultation bilaterally, no tachypnea, no wheezing, no rhonchi, no rubs, no respiratory distress. Abdomen: Soft, nontender, nondistended, no rebound, no guarding, no peritoneal signs. Musculoskeletal: No joint swelling or deformity, normal muscle tone. Skin: No rashes or petechia, no signs of infection. Psychiatric: Alert and oriented, normal behavior and judgment for situation. Neurological: Alert and oriented to person, place, and time. Follows all commands. No focal deficits, speech is clear and fluent. Course Vital Signs Vital signs: Vital Signs Temperature 98.3 F 11/13/24 18:36 Pulse Rate 70 11/13/24 18:36 Respiratory Rate 16 11/13/24 18:36 Blood Pressure 178/92 H 11/13/24 18:36 Pulse Oximetry 97 11/13/24 18:36 Oxygen Delivery Room Air 11/13/24 18:36 Temperature 98.3 F 11/13/24 18:36 Pulse Rate 68 11/13/24 20:33 Respiratory Rate 16 11/13/24 20:33 Blood Pressure 168/75 H 11/13/24 20:33 Pulse Oximetry 95 11/13/24 20:33 Oxygen Delivery Room Air 11/13/24 18:36 Medical Decision Making [facility] Narrative Medical decision making narrative: The patient was evaluated by myself in the emergency department. History is obtained from patient who is an independent historian and physical exam was performed. External medical records were reviewed at this time. IV was established and pertinent tests were ordered. Patient was administered 1 L IV fluid bolus with normal saline and 4 mg IV Zofran for nausea/vomiting. Patient continues to complain of nausea and at this time she was administered 10 mg of IV Reglan and 25 mg of IV Benadryl. Laboratory results obtained revealing a leukocytosis of 15.9 otherwise unremarkable. Urinalysis revealed 3+ leuk esterases and greater than 100 wbc's. Differential diagnosis considerations include gastroenteritis, acute viral syndrome, dehydration, electrolyte derangements. Comorbidities impacting this visit include none. I have evaluated and discussed social determinants of health with the patient that could potentially impact subsequent diagnosis and treatment plans. On repeat assessment of the patient, reevaluation revealed that the patient is doing well and is in no acute distress. Patient symptoms have improved since she arrived to our emergency department. Repeat vital signs were all reviewed and noted to be stable. Differential diagnosis and treatment plan were discussed with the patient at bedside. Patient agrees with discussion and after shared medical decision making agrees with discharge. All questions were answered to the patient's satisfaction. Patient will follow up with her PCP in 3-5 days. A script for cephalexin was sent to patient's pharmacy to take as prescribed for her UTI. She was also prescribed Zofran to use as needed for nausea/vomiting. Patient was provided with strict return precautions and instructed to return to the emergency department if any new or worsening symptoms develop. The patient was discharged in stable condition. Vital Signs Vital Signs: Vital Signs Temperature 98.3 F 11/13/24 18:36 Pulse Rate 70 11/13/24 18:36 Respiratory Rate 16 11/13/24 18:36 Blood Pressure 178/92 H 11/13/24 18:36 Pulse Oximetry 97 11/13/24 18:36 Oxygen Delivery Room Air 11/13/24 18:36 Temperature 98.3 F 11/13/24 18:36 Pulse Rate 68 11/13/24 20:33 Respiratory Rate 16 11/13/24 20:33 Blood Pressure 168/75 H 11/13/24 20:33 Pulse Oximetry 95 11/13/24 20:33 Oxygen Delivery Room Air 11/13/24 18:36 Lab Data 11/13/24 19:00 11/13/24 19:00 Labs: Lab Results 11/13/24 11/13/24 Range/Units 19:00 19:27 WBC 15.9 H (4.5-10.0) K/mm3 RBC 4.38 (4.2-5.4) M/mm3 Hgb 12.8 (12.0-15.0) g/dL Hct 39.7 (37.0-47.0) % MCV 90.6 (80-100) fl MCH 29.2 (26-34) pg MCHC 32.2 (32-36) g/dl RDW 14.3 (11.5-14.5) % Plt Count 299 (150-375) k/mm3 MPV 9.8 (7.4-10.4) fl Immature Gran % (Auto) 0.5 (0-0.5) % Neut % (Auto) 83.7 H (45.5-73.1) % Lymph % (Auto) 10.5 L (18.3-44.2) % [place] % (Auto) 5.0 (2.6-8.5) % Eos % (Auto) 0.2 (0-4.4) % Baso % (Auto) 0.1 L (0.2-1.2) % Lymph # (Auto) 1.67 (0.9-3.2) K/mm3 [place] # (Auto) 0.8 H (0.1-0.6) K/mm3 Eos # (Auto) 0.0 (0-0.3) K/mm3 Baso # (Auto) 0.0 (0.0-0.1) K/mm3 Abs Immat Gran (auto) 0.08 H (0.00-0.031) K/mm3 Absolute Neuts (auto) 13.3 H (1.3-6.7) K/mm3 Absolute Nucleated RBC 0.000 (0.0-0.012) K/mm3 Nucleated RBC % 0.0 (0.0-0.2) % Sodium 138 (137-145) mmol/L Potassium 3.6 (3.4-5.0) mmol/L Chloride 101 (98-107) mmol/L Carbon Dioxide 25 (22-30) mmol/L Anion Gap 12 (4-12) mmol/L BUN 17 (7-17) mg/dL Creatinine 1.03 H (0.7-1.0) mg/dL Estim Creat Clear Calc 59 ml/min Estimated GFR 55 L (59 - ) Glucose 110 (65-110) mg/dL Calcium 9.7 (8.4-10.2) mg/dL Magnesium 1.7 (1.6-2.3) mg/dL Total Bilirubin 0.6 (0.2-1.3) mg/dL AST 38 H (14-36) U/L ALT 22 (6-35) U/L Alkaline Phosphatase 106 (38-126) U/L Total Protein 8.0 (6.3-8.2) g/dL Albumin 4.5 (3.5-5.1) g/dL Lipase 62 (23-300) U/L Urine Color Yellow (Yellow) Urine Appearance Clear (Clear) Urine pH 6.0 (5.0-9.0) Ur Specific [place] 1.008 (1.001-1.035) Urine Protein Negative (Negative) mg/dL Urine Glucose (UA) Negative (Negative) mg/dL Urine Ketones Negative (Negative) mg/dL Ur Blood (Man) Trace (Negative) Urine Nitrate Negative (Negative) Urine Bilirubin Negative (Negative) Urine Urobilinogen 0.2 (<2.0) mg/dL Leukocyte Esterase Rfl 3+ H (Negative) JUAN/UL Urine RBC 0-2 (0-2) /hpf Urine WBC >100 H (0-3) /hpf Ur Squamous Epith Cells Occasional (Few) /hpf Urine Bacteria None seen /hpf Urine Casts 0-2 Discharge Plan Discharge Clinical Impression: Nausea vomiting and diarrhea, Urinary tract infection Patient Disposition: Home Condition: Improved Instructions: Antibiotic Form, Urinary Tract Infection in Women (DC), Gastroenteritis (ED) Additional Instructions: Please follow-up with your family doctor in the next 3-5 days. Return to the ED if any new or worsening symptoms develop. Take the prescribed antibiotic as instructed for urinary tract infection. Use the prescribed Zofran as needed for nausea/vomiting. Patient Language: Kinyarwanda Prescriptions: New cephalexin 500 mg capsule 500 mg PO Q12H 5 Days Qty: 10 0RF ondansetron 4 mg tablet,disintegrating 4 mg PO Q8H PRN (Reason: nausea and vomiting) Qty: 10 0RF No Action clonidine HCl 0.2 mg tablet 0.2 mg PO DAILY omeprazole 20 mg capsule,delayed release(DR/EC) 20 mg PO DAILY duloxetine 30 mg capsule,delayed release(DR/EC) 30 mg PO HS duloxetine 60 mg capsule,delayed release(DR/EC) 60 mg PO DAILY methadone 40 mg Tablet,Soluble 110 mg PO DAILY ergocalciferol (vitamin D2) 1,250 mcg (50,000 unit) capsule 1,250 mcg PO WEEKLY Qty: 16 3RF atorvastatin 40 mg tablet 40 mg PO QPM potassium chloride [Klor-Con M20] 20 mEq tablet,ER particles/crystals 20 meq PO USEASDIRECTD Humira(CF) Pen 40 mg/0.4 mL pen injector kit 40 mg SUBCUT [id number] carvedilol [Coreg] 6.25 mg Tablet 6.25 mg PO Q12HR Qty: 60 0RF furosemide 20 mg tablet 20 mg PO DAILY PRN (Reason: Edema and weight gain ) Qty: 30 0RF Rx Instructions: Take if you gain 3lbs in one day or 5lbs in 5 days, or notice increased swelling of the bilateral lower extremities clobetasol 0.05 % solution 1 applic TOPICAL DAILY levothyroxine 200 mcg Capsule 200 mcg PO DAILY Follow-up/Referrals: Kenyatta,Janet Maciel PA-C [Primary Care Provider] - 3 Days Time of Disposition: 20:27
[2024-11-13 20:33] VITALS: BP 168/75; PULSE 68; RESP 16; O2SAT 95
--- OUTSIDE RECORDS SUMMARY | 2024-11-14 15:11 | XMS_ITS | Encounter Summary ---
Author Organization [facility] Address [address] [place] [address] Care Team Providers Care Buyer Renter Name Role Phone Enrique Gandhi MD Primary Care Provider [phone] Anupama Cuba DO Primary Care Provider [phone]- [phone] Janet You PA-C Primary Care Provider [phone] Reason for Visit * Reason Onset Date Comments MEDICATION REFILL 01/06/2018 Encounter Details Date Type Department Care Team (Late st Contact Info) Description 01/06/2018 Refill [facility] [address] [place] [address] Mary Jo Dukes MD [address] [address] MEDICATION REFILL Social History Tobacco Use Types Packs/Day Years Used Date Smoking Tobacco: Never Assessed Comments Unknown Sex and Gender Information Value Date Recorded Sex Assigned at Not on file 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 Gender Identity Not on file Sexual Orientation Not on file documented as of this encounter Plan of Treatment Not on file documented as of this encounter Visit Diagnoses Not on filedocumented in this encounter Care Teams Buyer Renter Relationship Specialty Start Date End Date Enrique Gandhi MD [address] [place] [address] [place] [address] PCP - General Family Medicine 06/20/16 11/02/20 Anupama Cuba DO [address] [facility] [address] [address] PCP - General 11/03/20 07/10/22 Janet You, BRYANC [address] [place] [address] PCP - General 07/11/22 documented as of this encounter
--- OUTSIDE RECORDS SUMMARY | 2024-11-14 15:11 | XMS_ITS | Clinical Summary ---
Author Organization [facility] Address [address] [place] [address] Phone Care Team Providers Care Pit Worker Power Shovel Name Role Phone Ck Leal Primary Care Provider [phone] Allergies No known active allergies Medications DULoxetine [...] topic Insurance MEDICARE MEDICAID [place] Care Teams Pit Worker Power Shovel Relationship Specialty Start Date End Date Ck Lela PAC [address] [place] [address] PCP - General Physician Fourth Hand 07/27/15
--- OUTSIDE RECORDS SUMMARY | 2024-11-14 15:11 | XMS_ITS | Clinical Summary ---
Author Organization [facility] Address [address] [place] [address] Care Team Providers Care International Bank Manager Name Role Phone Anupama Cuba MD Primary Care Provider [phone] Nemesio Antony MD Unavailable Allergies Active Allergy [...] Treatment (MAT),PATIENT REPORTED THIS DOSE DAILY FROM [place] [facility] Take 8 tablets (80 mg total) by mouth daily. Indications: Medication-Assist ed Treatment (MAT), PATIENT REPORTED THIS DOSE DAILY FROM [place] 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 Gender Identity Not on file Sexual Orientation [...] 1995 Zoster Vaccines (1 of 2) 2015 Mammogram Screening 02/09/2024 02/08/2022 COVID-19 Vaccine ( season) 2024 10/28/2020, 10/07/2020 PHQ-2 (Physician [place]) 07/15/2024 Colorectal Cancer Screening Colonoscopy (10 Years) 01/06/2029 01/06/2019 Colorectal Cancer Screening FIT-DNA (3 Years) Discontinued 10/24/2020 Hepatitis C Completed 02/07/2021, 11/13, 10/11/2020, Additional [...] PA-C MAMMO Final Resul t * COLOGUARD (EndorphMe) (10/24/2020 7:30 AM CDT) COLOGUARD RESULT Negative Not Applicable [facility] (CLIA #:[id number]) Comment: A negative result indicates a low [...] (Dwayne Brooks al, N Engl J Med 2014;370(14):4860-4019) The normal value (reference range) for this assay is negative. COLOGUARD RE-SCREENING RECOMMENDATION: Periodic routine colorectal cancer screening is an important part of preventive healthcare for asymptomatic persons at average risk for colorectal cancer. Following a negative Cologuard result, the [place] [employer] Society and U.S. Multi-Society Task Force screening guidelines recommend a Cologuard re-screening interval of 3 years. References: [place] [employer] Society (ACS). Colorectal cancer prevention and early detection. [place], [place]: [place] [employer]; [updated 2015Nov 05]. https://www.cancer.org/cancer/ooplu-cpayud-kvppmo/rtjdekjot-gyxhrpnso-bkfkgvz/ac s-rec ommendations.html. Accessed March 14, 2018; Thomas DK, Sebastian CR, Noah OTERO, Colorectal Cancer Screening: Recommendations for Physicians and Patients from the U.S. Multi-Society Task Force on Colorectal Cancer Screening, Am J Gastroenterology 2017; 112:4083-0781. TEST TYPE: Composite algorithmic analysis of stool [...] interval of every 3 years by the [place] [employer] Society and U.S. Multi-Society Task Force. [...] can be accessed at the following location: www.Cl[place]sting.Pixability/results. Additional description of the Cologuard test process, warnings and precautions can be found at www.cologuardtest.com. Rx only. Stool specimen (specimen) STOOL SPECIMEN / Unknown 10/24/2020 7:30 AM CDT 10/25/2020 12:27 PM CDT Marilyn Fuller NP BODY FLUIDS AND STOOLS ORDERABLE S Final Result [facility] ([place] [address] [facility]) [address] [place] [address], [facility] (CLIA #:[id number]) 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
--- OUTSIDE RECORDS SUMMARY | 2024-11-14 15:11 | XMS_ITS | Data Portability ---
Author Organization [facility], [address] [facility] ([place] Address [address] [place] [address] Care Team Providers Care Splunk Consultant Name Role Phone ANUPAMA CUBA Primary Care Provider [phone] Assessment No assessment recorded. Plan of Treatment [...] l 0.05 % scalp solution 2023 024 [id number] [facility] #[id number], [address] [place], [address], 01/28/2024 12:09:45 calcipotr iene 0.005 % topical ointment 2023 024 [id number] [facility] #[id number], [address] [place], [address], 01/28/2024 12:09:45 Patient TargetsNo targets recorded. Patient InstructionsNo instructions recorded. Reason for Referral None Reported. Results Created Date Observation Date Name Description Value Unit Range Abnormal Flag Note LastModifiedBy Organization Detail LastModifiedTime Result Notes None recorded. Problems Name Problem SNOMED Code Status Onset Date Resolution Date Notes Provider Name and Address Organization Details Recorded Time Psoriasis 3440222 [facility] 01/28/2024 11:29:49 Notes:Some problems listed i n Document: #[id number] could not be added to this patient's chart. Please review this document and add these problems to the patient's chart manually as needed. Problem Notes None recorded. Medical Equipment None Reported. Allergies Allergen ID Allergen Name Allergen Category Reaction Reaction Severity Criticality Documentation Date Start Date Code Code System Note Provider Name and Address Organization Details Recorded Time 4494733 fluocinon estevan medicatio n rash Not available Not available 08/14/20232021 4462 RxNorm React ion: Blist ers; Not Available [facility] 4 04:37:28 3245968 methotrex ate medicatio n Not available Not available Not available 08/14/20232021 6851 RxNorm React ion: Blist ers; Nause a; Myalg ia; Not Available [facility] 4 04:37:28 393293 Product containin g penicilli n (product) medicatio n Not available Not available Not available 08/12/20232005 77496 8001 SNOMED Not Available [facility] 4 23:32:40 Medications Name Sig Start Date Stop Date [...] SNOMED-CT Code Diagnosis ICD10 Code Diagnosis Note [id number] YANDY GARCIA MD [facility] [address] [place] [address] 01/28/2024 11:20:03 01/28/2024 11:44:29 Psoriasis 2912314 L40.9 Chronic plaque psoriasis, controlled with humira [...] Concerns Section Related Observation LastModified by Organization Bhupendra bob LastModified Time None Recorded Concern Status LastModified by Organization Details LastModified Time None Recorded Advance Directives Directive None Recorded Payers Encounter Date Sequence Insurance Name Policy Number Policy Hatch Covered Member ID Hatch Member ID Guarantor Name 01/28/2024 1 AETNA [id number] Roslyn Sanz Char [id number] Roslyn Sanz Char 01/28/2024 2 [place]: [facility] Roslyn Sanz Char [id number] Roslyn Sanz Char Notes Date Note Type [...] was 12/13/22. YANDY GARCIA MD [address] [facility], [place], [address], [facility] 01/28/2024 12:05:06 OBGyn Episode No OBEpisode recorded.
--- OUTSIDE RECORDS SUMMARY | 2024-11-14 15:11 | XMS_ITS | Encounter Summary ---
Author Organization [facility] Address [address] [place] [address] Care Team Providers Care Automatic Pinsetter Mechanic Name Role Phone Enrique Gandhi MD Primary Care Provider [phone] Anupama Cuba DO Primary Care Provider [phone]- [phone] Janet You PA-C Primary Care Provider [phone] Reason for Visit * Reason Onset Date Comments MEDICATION REFILL 07/28/2018 Encounter Details Date Type Department Care Team (Late st Contact Info) Description 07/28/2018 Refill [facility] [address] [place] [address] Mary Jo Dukes MD [address] [place] [address] MEDICATION REFILL Social History Tobacco Use Types Packs/Day Years Used Date Smoking Tobacco: Never Assessed Comments Unknown Sex and Gender Information Value Date Recorded Sex Assigned at Not on file 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 [address] [address] PCP - General 11/03/20 07/10/22 Janet You, BRYANC [address] [place] [address] PCP - General 07/11/22 documented as of this encounter
--- OUTSIDE RECORDS SUMMARY | 2024-11-14 15:11 | XMS_ITS | Clinical Summary ---
Author Organization [facility] Address [address] [place] [address] Care Team Providers Care University Dean Name Role Phone Anupama Cuba MD Primary [...] daily 04/18/20 22 Active adalimumab (Humira,CF, Pen Gmeb-Vz-Vqfe HS) 80 mg/0.8 mL-40 mg/0.4 mL pen [...] tachycardia 09/07/2022 Coronary artery disease invo lving [place] coronary artery of [place] heart without angina pectoris 09/07/2022 History of cardiac arrest 09/07/2022 Encounters Date Type Department Care Team Description 09/02/2024 Telephone [facility] Cardiology [address] [place] [address] Indira Freeman MD from Last [...] on file Legal Sex Female 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 Gender Identity Not on file Sexual Orientation Not on file Obstetrics History Last Filed Vital Signs Vital Sign Reading Time Taken Comments Blood Pressure 146/82 06/24/2024 8:01 AM KILN BURNER HELPER Pulse 61 06/24/2024 8:01 AM KILN BURNER HELPER Temperature 36.9 C (98.4 F) 11/01/2023 7:40 AM CDT Respiratory Rate 16 11/01/2023 9:28 AM CDT Oxygen Saturation 99% 06/24/2024 8:01 AM KILN BURNER HELPER Inhaled Oxygen Concentration - - Weight 99.8 kg (220 lb) 06/24/2024 8:01 AM KILN BURNER HELPER Height 162.6 cm (5' 4 ) 06/24/2024 8:01 AM KILN BURNER HELPER Body Mass Index 37.76 06/24/2024 8:01 AM KILN BURNER HELPER Plan of Treatment Health Maintenance Due Date [...] complete this topic Insurance AET MEDICARE GOLD [place] AETNA MEDICARE GOLD IDMN [facility] Advance Directives For more information, please contact: [phone] * Full Code (Latest Code Status on File) Date Activated Date Inactivated Comments 11/01/2023 8:52 AM 11/02/2023 4:37 AM * Full Code Date Activated Date Inactivated Comments 05/29/2023 10:01 AM 05/30/2023 4:39 AM Care Teams University Dean Relationship Specialty Start Date End Date Anupama Cuba MD [address] [place] [address] PCP - General Family Medicine 09/27/22
--- OUTSIDE RECORDS SUMMARY | 2024-11-14 15:11 | XMS_ITS | Referral Summary ---
Author Organization [facility] Address [address] [place] [address] Care Team Providers Care Customer Service Advisor Name Role Phone Anupama Cuba MD Primary Care Provider Encounters Date Type Department Care Team Description 09/02/2024 Telephone [facility] Cardiology [address] [place] [address] Indira Freeman MD from Last [...] daily 04/18/20 22 Active adalimumab (Humira,CF, Pen Yeux-Uz-Kokg HS) 80 mg/0.8 mL-40 mg/0.4 mL pen [...] tachycardia 09/07/2022 Coronary artery disease invo lving [place] coronary artery of [place] heart without angina pectoris 09/07/2022 History of [...] on file 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 Gender Identity Not on file Sexual Orientation Not on file Last Filed Vital Signs Vital Sign Reading Time Taken Comments Blood Pressure 146/82 06/24/2024 8:01 AM SCREW MACHINE REPAIRER Pulse 61 06/24/2024 8:01 AM SCREW MACHINE REPAIRER Temperature 36.9 C (98.4 F) 11/01/2023 7:40 AM CDT Respiratory Rate 16 11/01/2023 9:28 AM CDT Oxygen Saturation 99% 06/24/2024 8:01 AM SCREW MACHINE REPAIRER Inhaled Oxygen Concentration - - Weight 99.8 kg (220 lb) 06/24/2024 8:01 AM SCREW MACHINE REPAIRER Height 162.6 cm (5' 4 ) 06/24/2024 8:01 AM SCREW MACHINE REPAIRER Body Mass Index 37.76 06/24/2024 8:01 AM SCREW MACHINE REPAIRER Plan of Treatment Not on file Insurance AETNA MEDICARE GOLD IDFL AETNA MEDICARE GOLD IDPA AETNA [facility] Advance Directives For more information, please contact: [phone] * Full Code (Latest Code Status on File) Date Activated Date Inactivated Comments 11/01/2023 8:52 AM 11/02/2023 4:37 AM * Full Code Date Activated Date Inactivated Comments 05/29/2023 10:01 AM 05/30/2023 4:39 AM Care Teams Customer Service Advisor Relationship Specialty Start Date End Date Anupama Cuba MD [address] [address] PCP - General Family Medicine 09/27/22
--- OUTSIDE RECORDS SUMMARY | 2024-11-14 15:11 | XMS_ITS | Clinical Summary ---
Author Organization [facility] Address [facility] [facility] [place] [address] Care Team Providers Care Instrument Repairer Helper Name Role Phone Janet You PA-C Primary Care Provider Source Comments [facility],non-owned Affiliates and Associated Physician Practices is amultiple site organization consisting of ambulatory clinics and hospital sitesin [place], [place], [place] and [place]. This disclosure is being madepursuant to the Care Everywhere program and may not contain all information available regarding this patient. 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 eGFR by MDRD 57(L) > OR = [...] 29 U/L [facility] Comment: Test Performed at: [facility] [address] [address] TORSTEN BROWN DO,MPH Blood BLOOD SPECIMEN / Unknown 05/09/2021 8:47 AM CDT 05/09/2021 8:48 AM CDT us Regina Deluca POWER DRIVEN BRUSH MAKER-HEATING AND REFRIGERATION INSPECTOR LAB - CHEMISTRY LEIDY NELSON Final Result Performing Organization Address City/State/[facility] Co de Phone Number [facility] [address] [place] [address] * HEPATITIS C RNA QUANTITATIVE (05/02/2021 8:49 [...] of this assay have been determined by [facility]. The modifications have not been cleared or approved by the FDA. This assay has been validated pursuant to the CLIA regulations and is used for clinical purposes. For more information on this test, go to: http://education.GoYoDeo/faq/LXR35i8 (This link is being provided for informational/ educational purposes only.) REPORT COMMENT: CC DR Lynnette LE Test Performed at: [facility] [address] [place] [address] TORSTEN BROWN DO,MPH 05/02/2021 8:49 AM CDT 05/02/2021 8:49 AM CDT us Regina Deluca POWER DRIVEN BRUSH MAKER-HEATING AND REFRIGERATION INSPECTOR LAB - CHEMISTRY ORDE LESLIE Final Result [facility] [address] [place] [address] from Last 3 Months or Most Recently Relevant to Health Maintenance Insurance [facility] Care Address: [facility] [address] [place] [address] MEDICAID [place] MEDICARE MEDICAID - OUT OF STATE AETNA Care Teams Instrument Repairer Helper Relationship Specialty Start Date End Date Janet You PA-C [address] [place] [address] PCP - General 07/11/22
--- OUTSIDE RECORDS SUMMARY | 2024-11-14 15:11 | XMS_ITS | Encounter Summary ---
Author Organization [facility] Address [address] [place] [address] Care Team Providers Care Hot Top Liner Helper Name Role Phone Enrique Gandhi MD Primary Care Provider [phone] Anupama Cuba DO Primary Care Provider [phone]- [phone] Janet You PA-C Primary Care Provider [phone] Reason for Visit * Reason Onset Date Comments MEDICATION REFILL 02/12/2018 Encounter Details Date Type Department Care Team (Late st Contact Info) Description 02/12/2018 Refill [facility] [address] [place] [address] Mary Jo Dukes MD [address] [address] MEDICATION REFILL Social History Tobacco Use Types Packs/Day Years Used Date Smoking Tobacco: Never Assessed Comments Unknown Sex and Gender Information Value Date Recorded Sex Assigned at Not on file Legal Sex Female 11:02 AM ELASTIC TAPE INSERTER Gender Identity Not on file Sexual Orientation Not on file documented as of this encounter Plan of Treatment Not on file documented as of this encounter Visit Diagnoses Not on filedocumented in this encounter Care Teams Hot Top Liner Helper Relationship Specialty Start Date End Date Enrique Gandhi MD [address] [place] [address] [place] [address] PCP - General Family Medicine 06/20/16 11/02/20 Anupama Cuba DO [address] [facility] [address] [place] [address] PCP - General 11/03/20 07/10/22 Janet You, BRYANC [address] [place] [address] PCP - General 07/11/22 documented as of this encounter
--- OUTSIDE RECORDS SUMMARY | 2024-11-14 15:11 | XMS_ITS | Encounter Summary ---
Author Organization [facility] Address [address] [place] [address] Care Team Providers Care First Assistant Name Role Phone Anupama Cuba MD Primary Care Provider [phone] Nemesio Antony MD Unavailable Nemesio Antony MD Unavailable Encounter Details Date Type Department Care Team (Late st Contact Info) Description 09/26/[address] 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
--- OUTSIDE RECORDS SUMMARY | 2024-11-14 15:11 | XMS_ITS | Data Portability ---
Author Organization [facility] [place] [facility] Address [address] [place] [address] Care Team Providers Care Urban And Regional Planner Name Role Phone LIZA LEAL Primary Care Provider JEN BROWER OTHER Assessment No assessment recorded. Plan of Treatment Reminders Order Date Submit Date Provider Last Modified By Organization Details Last Modified Time Details Appointments None recorded. Lab None recorded. Referral ENT referral 2019 ssander [facility], 2 [facility], [facility] [address], [address], 0 12:32:51 urogynecol ogist referral 2019 CALLIHAM Anaid Boggs, [address] , [facility] [address], [place], [address], 0 11:16:05 Procedures None recorded. Surgeries None recorded. Imaging XR, toe(s), [address] [facility] (Admitting), [address], [place], [address], 0 11:20:31 XR, foot, 3 or more [address] 2019 [facility] (Admitting), [address], [place], [address], 0 11:20:31 XR, lumbar spine 2019 [facility] (Admitting), [address], [place], [address], 0 15:25:32 XR, cervical spine 2019 [facility] (Admitting), [address], [place], [address], 0 15:25:32 Medication Orders pilocarpin e 5 mg tablet 2019 020 [facility]FACE [facility]/Pharmacy #3259, [address] [place], [address], 0 15:27:35 Diflucan 200 mg tablet 2019 020 [facility]Pharmacy #3259, [address] [place], [address], 0 10:43:38 fluconazol e 150 mg tablet 2019 020 INTERFACE [facility]/Pharmacy #3259, [address] [place], [address], 0 14:34:22 oxybutynin chloride ER 10 mg tablet,ext ended release 24 hr 2019 020 [facility] [address], [address] [place], [address], 0 14:41:23 cyclobenza niko 10 mg tablet [address] [facility] [address], [address] [place], [address], 0 16:34:49 betamethas one valerate 0.1 % lotion 2019 020 [facility] [address], [address] [place], [address], 0 16:03:20 betamethas one dipropiona te 0.05 % topical cream [address] [facility] [address], [address] [place], [address], 0 16:33:16 AirDuo RespiClick 113 mcg-14 mcg/actuat ion breath activated [address] [facility] [address], [address] [place], [address], 0 16:28:15 ProAir HFA 90 mcg/actuat ion aerosol inhaler [address] [facility] [address], [address] [place], [address], 0 16:28:11 Patient TargetsNo targets recorded. Patient Instructions Encounter Date Encounter Id Patient Instructions Last Modified By Organization Details Last Modified Time 09/11/2019 [id number] bladder training : care instructions jnanney Not available 09/11/2019 16:36:41 kegel exercises: care instructions jnanney Not available 09/11/2019 16:36:40 Stress Incontinence: Care Instructions jnanney Not available 09/11/2019 16:36:40 psoriasis: care instructions jnanney Not available 09/11/2019 16:33:06 11/12/2019 [id number] vaginal yeast infection: care instructions jnanney Not available 11/12/2019 14:34:20 candidiasis: car e instructions jnanney Not available 11/12/2019 14:34:20 12/31/2019 [id number] candidiasis: car e instructions jnanney Not available 12/31/2019 17:09:45 she will have pharmacy call us for refills.. jnanney Not available 12/31/2019 17:05:53 03/11/2020 [id number] candidiasis: car e instructions jnanney Not available [...] Organization Details Recorded Time Low back pain 002357216 Active Harriet Daiglestevan FINA null, [place] [facility] 6 15:26:30 Pain in toe 812654863 Active Harriet Villegas [place], [place] [facility] 6 15:26:30 Osteomyelit is 01995678 Active Harriet Daiglestevan F[place], [place] [facility] 6 15:26:30 Chronic hepatitis 25067076 Completed 09/26/2016 Bryon Smith PA-C Attn: Accountin g,[address] [place], [address], [place] - [facility] 7 11:28:49 Complaining of pelvic pain Active Harriet Daiglestevan [place] [facility] 6 15:26:30 Hyperglycem ia 34934801 Active Harriet Daiglestevan [place] [facility] 6 15:26:30 Psoriasis 0046574 Active Liza Leal PA-C Attn: Accountin g,[address] [place], [address], [place] [facility] 6 15:59:19 Chronic depression 805183684 Active Liza Leal PA-C Attn: Accountin g,[address] [facility], [place], [address], [place] [facility] 6 15:59:19 Arthritis 0231017 Active Liza Leal PA-C Attn: Accountin g,[address] [place], [address], [place] [facility] 6 15:59:19 Dry eyes 256381024 Active Liza Leal PA-C Attn: Accountin g,[address] [facility], [place], [address], [facility] - [facility] 6 15:59:19 Ulcer of mouth 16126671 Active Harriet Villegas MA null, [place] - [place] 6 15:26:30 History of appendectom y 299022687 Active 2016 Bryon Smith PA-C Attn: Accountin g,[address], [place], [address], [facility] - SI 7 11:28:38 Obesity 174821053 Active 2016 Bryon Smith PA-C Attn: Accountin g,[address], [place], [address], [facility] - SI 7 11:28:39 Chronic hepatitis C 401840491 Active 2016 Bryon Smith PA-C Attn: Accountin g,[address] [facility], [place], [address], [facility] - [place] 7 11:28:42 Problem Notes None recorded. Procedures Surgical History Date Name Laterality Status Provider Name and Address Organization Details Recorded Time 11/07/19 14 Date of Last Pap Smear completed Lisa Brewer MA [facility] 02/10/2015 09:42:37 Appendectomy completed Nilda Carrington MA [facility] 06/04/2014 12:19:16 Tonsillectomy completed Nilda Carrington MA [facility] 06/04/2014 12:19:16 Imaging Results None recorded. Procedure Notes None recorded. Medical Equipment None Reported. Allergies No known drug allergies Medications Name Sig Start Date Stop Date Status Note LastModified by Organization Details LastModified Time ventolin hfa 108 mcg/act aers 01/06 completed Not Available Not Available Not Available nystatin 022349 unit/ml susp 01/06 completed Not Available Not [...] Updated DateTime 0 162.56 cm 40.4 kg/m2 613264. 66 g 98 % 98 % 63 /min 112 mm[Hg] 72 mm[Hg] Li Dey MA [facility] 0 16:03:10 Date Recorded Body height Provider Name an d Address Organization Details Last Updated DateTime 03/11/2020 162.56 cm Jackie Brown MA [facility] 03/11 15:18:18 Social History Question Answer Notes LastModified by Organizat ion Details LastModified Time Tobacco Smoking Status Current Every Day Smoker Mily Baez MA null, [facility] 02/05/2020 14:42:06 Do You Have An [...] Atrial Fibrillation N High Blood Pressure N Thyroid Problems N Kidney or Bladder Problems N Depression Y COPD N Blood Clots N GI Problems N Skin Problems Y Anemia N Heart Attack ([place]) N Diabetes N Anxiety Disorder N Muscle, Joint, or Bone Problems Y Seizures/Epilepsy N Acid Reflux (GERD) Y Cancer N Stroke N Allergies N Asthma Y ADHD N High Cholesterol N Hepatitis Y [...] mL dose 1 completed Hayreen Lawanda [place], [place] [facility] 12/14/2020 09:12:47 COVID-19, mRNA, LNP-S, PF, 30 mcg/0.3 mL dose 1 completed Hayreen Lawanda [place] [facility] 12/14/2020 09:13:04 Hep B, adult 7 completed Not Available [facility] 08/01/2019 02:45:29 Influenza, split virus, quadrivalent, preservative 7 completed Not Available [facility] 08/01/2019 02:51:06 Influenza, split virus, quadrivalent, preservative 9 completed Not Available [facility] 08/01/2019 02:47:16 Past Encounters Encounter ID Performer Location Encounter Start Date Encounter Closed Date Diagnosis/Indication Diagnosis SNOMED-CT Code Diagnosis ICD10 Code Diagnosis Note [id number] Liza Leal PA-C [facility] [address] [place] [address] 06/04/2014 12:01:17 06/04/2014 14:49:28 Ulcer of mouth 90721848 [id number] Liza Leal PA-C [facility] [address] [place] [address] 09/17/2014 11:27:15 09/17/2014 12:56:57 Low back pain 489365848 Pain in toe 986366035 [id number] Liza Leal PA-C [place] [address] [place] [address] 09/22/2014 14:17:08 09/22/2014 14:53:03 [facility] [id number] MD Polly Leong [facility]om[facility] ([address]) [address] [facility] [address] [place] [address] 02/10/2015 09:24:06 02/10/2015 10:33:18 Gynecologic examination 78027689 [id number] MD Anna Moscoso [address] [place] [address] 02/24/2015 11:12:12 02/24/2015 11:46:17 Low back pain 847404773 Chronic hepatitis 96018568 [id number] MD Anna Moscoso [address] [place] [address] 04/13/2015 11:21:16 04/13/2015 12:05:27 Osteomyelitis 34011228 Low back pain 783386157 Chronic hepatitis 74836847 Hyperglycemia 27134985 Psoriasis 5112125 [id number] Enrique Gandhi MD [facility] [address] [place] [address] 04/27/2015 11:15:44 04/27/2015 11:49:36 Chronic hepatitis 43434590 K73.9 [id number] Enrique Gandhi MD [facility] [address] [place] [address] 05/31/2015 18:18:59 05/31/2015 18:35:02 Chronic depression 405292023 F34.1 [id number] Liza Leal PA-C [facility] [address] [place] [address] 03/20/2016 15:19:38 03/20/2016 16:05:46 Chronic depression 244921833 F34.1 Chronic hepatitis 275931 07 K73.9 Arthritis 1111975 M19.90 Psoriasis 8614461 L40.9 Dry eyes 276854972 H04.1 29 [id number] Enrique Gandhi MD [facility] [address] [place] [address] 08/17/2016 14:53:51 08/17/2016 15:52:04 Chronic hepatitis 23178778 B18.2 [id number] Bryon Smith PA-C [facility] [address] [place] [address] 09/26/2016 09:48:01 09/26/2016 12:48:48 Chronic hepatitis C 971641095 B18.2 Genotype 1a 51 y/o C female Dx HCV+ 2004 while [facility] [place] [place]Risk Factors: +IVDU, +non-profe ssional tattooShe is [...] 1 - 2 months for f/u Obesity 959421160 E66.9 BMI: 39 History of appendectomy 817534325 Z98.890 ~ 4056 [id number] Bryon Smith PA-C [facility] [address] [place] [address] 10/31/2016 09:42:01 11/02/2016 13:05:54 Chronic hepatitis C 125035705 B18.2 Genotype 1a 51 y/o C female Dx HCV+ 2004 while attending an inpatient drug rehab program ([place], [place])Risk Factors: +IVDU, +non-profe ssional tattooShe is [...] of her Fibrosis score and the current [place] HCV Tx formulary restrictio ns.Will initiate the Hep B vaccine series today RTC 12 months Obesity 834148836 E66.9 BMI: 39 History of appendectomy 474771047 Z98.890 ~ 3047 [id number] Liza Leal PA-C [facility] [address] [place] [address] 04/10/2017 10:23:08 04/10/2017 13:38:59 Urinary incontinence 052471622 N39.41 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 Osteoarthritis 226377152 M15.0 Chronic depression 24644 0009 F34.1 Coronary arteriosclerosis 11129080 I25.10 [id number] Liza Leal PA-C [facility] [address] [place] [address] 05/17/2017 11:09:48 05/17/2017 14:00:55 Female stress incontinence 66926818 N39.3 Hematochezia 684941348 K 92.1 Psoriasis of scalp 37712 8008 L40.9 Obstructiv e sleep apnea syndrome 29274886 G47.33 Acute oste omyelitis of phalanx of toe 891822313 M86.179 Administra tion of influenza vaccine 76941266 Z23 [id number] Jess Cosby, PATIENT FINANCIAL COUNSELOR-[facility] [address] [place] [address] 05/22/2017 13:33:19 06/03/2017 16:33:52 Screening mammography 62314706 Z12.31 Gynecologi c examination 67374325 Z01.448 [id number] Enrique Gandhi MD [facility] [address] [place] [address] 08/02/2017 13:35:46 08/02/2017 16:48:15 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 Acute oste omyelitis of phalanx of toe 799987796 M86.179 Onychomycosis 378583803 B35.1 Psoriasis 2195197 L40.0 Ingrowing toenail 496164 009 L60.0 [id number] Enrique Gandhi MD [facility] [address] [place] [address] 02/20/2018 11:39:04 02/20/2018 12:57:23 Psoriasis of scalp 289540258 L40.9 Chronic depression 09548 000 F34.1 Edema of l ower extremity 720645400 R60.0 Fecal occu lt blood: positive 888145545 R19.5 Coronary atherosclerosis 391704321 I25.10 [id number] Liza Leal PA-C [facility] [address] [place] [address] 09/09/2018 11:19:05 09/09/2018 12:57:45 Chronic hepatitis C 071049801 B18.2 Chronic depression 03189 000 F34.1 Hyperglycemia 71772660 R 73.9 Screening for malignant neoplasm of colon 454731573 Z12.11 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 641970427 E06.3 Rheumatoid arthritis 698 66985 M06.248 [id number] Liza Leal PA-C [facility] [address] [place] [address] 11/26/2018 11:49:21 11/26/2018 13:54:38 Screening for malignant neoplasm of colon 220222706 Z12.11 Chronic hepatitis C 1283 85632 B18.2 Prediabetes 655235652 R7 3.03 [id number] Liza Leal PA-C [facility] [address] [place] [address] 03/18/2019 11:52:53 03/18/2019 12:43:22 Pain of joint of ankle and/or foot 267966882 M79.591 [id number] [facility] [address] [place] [address] 03/26/2019 11:26:27 03/26/2019 15:50:53 Screening mammography 06686733 Z12.31 Importance of yearly mammograms and sbe exam discussed with pt. Mammogram order given, pt verbalized understand ing. Menopausal syndrome 1237 48833 N95.9 1. Discussed hormonal options and otc [...] for annual or sooner if needed. Smoker 97388882 F17.200 smoking cessation reviewed [id number] ZURI Agosto [facility] [address] [place] [address] 04/10/2019 10:55:24 04/10/2019 12:20:27 Chronic hepatitis C 593942578 B18.2 Chronic depression 76655 0009 F34.1 Acute bron chitis with bronchospasm 69294391 J20.8 [id number] ZURI Ramirez [address] [place] [address] 04/29/2019 12:12:54 04/29/2019 16:51:16 Chronic hepatitis C 830738682 B18.2 Genotype 1a 51 y/o C female Dx HCV+ 2004 while attending an inpatient drug rehab program ([place], [place])Risk Factors: +IVDU, +non-profe ssional tattooShe is [...] sex acts. RTC next month at the [facility] location. Obesity 701298239 E66.9 BMI: 39.7 History of appendectomy 697839228 Z98.890 ~ 1906 [id number] Bryon Smith PA-C [facility] () [address] [place] [address] 06/04/2019 12:13:22 06/04/2019 14:19:15 Chronic hepatitis C 580006318 B18.2 Genotype 1a 51 y/o C female Dx HCV+ 2005 while attending an inpatient drug rehab program ([place], [place])Risk Factors: +IVDU, +non-profe ssional tattooShe is [...] by Dr. Theodore Burger at [facility] in [place], [place] for pain. Plan:Have placed a call [...] sign a commitment letter. History of appendectomy 957197152 Z98.890 ~ 1988 Morbid obesity 725995665 E66.01 BMI: 40 [id number] Liza Leal PA-C [facility] [address] [place] [address] 09/11/2019 15:51:28 09/11/2019 16:58:19 Acute bronchitis with bronchospasm 66150079 J20.8 Psoriasis 1145584 L40.0 Urinary incontinence [address] ess incontinence 18956218 N39.3 [id number] Liza Leal PA-C [facility] [address] [place] [address] 11/12/2019 09:16:10 11/13/2019 14:50:18 Candidiasis of mouth 25964017 B37.0 [id number] Liza Leal PA-C [facility] [address] [place] [address] 12/31/2019 09:54:15 01/01/2020 09:02:13 Chronic depression 493517575 F34.1 Candidiasis of mouth 797 47533 B37.0 [id number] Liza Leal PA-C [facility] [address] [place] [address] 02/05/2020 09:35:03 02/05/2020 14:58:49 Cervical radiculopathy 63023791 M54.12 Lumbar radiculopathy 128 685235 M54.16 [id number] Liza Leal PA-C [facility] [address] [place] [address] 03/11/2020 09:34:15 03/11/2020 15:42:44 Osteomyelitis of ankle AND/OR foot 48285505 M86.8X7 Pain of to e of right foot 4935106258 12080 M79.674 Mucous mem brane dryness 283366651 R68.89 Candidiasis of mouth 797 75800 B37.0 Health Concerns Section Related Observation LastModified by Organization Detai ls LastModified Time None Recorded Concern Status LastModified by Organization Details LastModified Time None Recorded Advance Directives Directive N: Payers Encounter Date Sequence Insurance Name Policy Number Policy Hatch Covered Member ID Hatch Member ID Guarantor Name 09/11/2019 1 [place] Roslyn S Levendoski [id number] Roslyn Levendoski 09/11/2019 2 [place] MEDICARE REPLACEMENT PRIMARY) Roslyn Levendoski [id number] Roslyn Levendoski 11/12/2019 1 [place] Roslyn S Levendoski [id number] Roslyn Levendoski 11/12/2019 2 [place]PLACEMENT PRIMARY) Roslyn Levendoski [id number] Roslyn Levendoski 12/31/2019 1 [place] Roslyn S Levendoski [id number] Roslyn Levendoski 12/31/2019 2 [place]IC[place]ACEMENT PRIMARY) Roslyn Levendoski [id number] Roslyn Levendoski 02/05/2020 1 [place] Roslyn S Levendoski [id number] Roslyn Levendoski 02/05/2020 2 [place]IC[place] REPLACEMENT PRIMARY) Roslyn Levendoski [id number] Roslyn Levendoski 03/11/2020 1 [place] Roslyn S Levendoski [id number] Roslyn Levendoski 03/11/2020 2 [place] OR MEDICARE REPLACEMENT PRIMARY) Roslyn Char [id number] Roslyn Char Notes Date Note Type Note Provider Name and Address Organization Details Recorded Time 09/11/2019 text/html 54 y/o female presents for routine f/u. No complaints. Liza Leal PA-C Attn: [address]ing,[address] [place], [place], [address] [place] [address], [facility] 09/11/2019 16:37:33 11/12/2019 text/html sore throat feels like thrush...has had it before with advair... Liza Leal PA-C Attn: [address]ing,[address] [place], [place], [address] [place] [address], [facility] 11/12/2019 14:36:50 12/31/2019 text/html her physician left needs refills.. Liza Leal PA-C Attn: Accounting,[address] [place], [place], [address] [place] [address], [facility] 12/31/2019 17:10:04 02/05/2020 text/html feet and hands getting numb..feet feel likes blocks of wood..hx of sciatica Liza Leal PA-C Attn: [address]ing,[address] [place], [place], [address] [place] [address], [facility] 02/05/2020 14:50:25 03/11/2020 text/html pain in great toe ( both feet ) needs xrays...also thrush is returning Liza Leal PA-C Attn: Accounting,[address] [place], [address], [facility] 03/11/2020 15:29:57 OBGyn Episode Ob Episode Information Episode Created Date Number of Fetuses Patient Bloodtype Patient rh Status Prepregnancy Weight lbs Domestic Partner Domestic Partner Phone Father Name Sharepoint Trainer Status 05/22/20 17 1 CLOSED Fetus Data First Name Last Name Admitted to NICU Weight (g) Sex Living Outcome Pediatric Complications Fetus ID Race Codes Race Delivery Type [id number] Geoffrey Calculation Initial Geoffrey Date Initial Exam [...] Domestic Partner Domestic Partner Phone Father Name Sharepoint Trainer Status 05/22/20 17 1 CLOSED Fetus Data First Name Last Name Admitted to NICU Weight (g) Sex Living Outcome Pediatric Complications Fetus ID Race Codes Race Delivery Type F Full Term [id number] Geoffrey Calculation Initial Geoffrey Date Initial Exam [...] Domestic Partner Domestic Partner Phone Father Name Sharepoint Trainer Status 05/22/20 17 1 CLOSED Fetus Data First Name Last Name Admitted to NICU Weight (g) Sex Living Outcome Pediatric Complications Fetus ID Race Codes Race Delivery Type F Full Term [id number] Geoffrey Calculation Initial Geoffrey Date Initial Exam [...]
== END 2024-11-13 20:40 | disposition home or self-care (01) ==
PROVIDERS: Emergency Medicine; Emergency Provider Emergency Medicine; PCP Physician Assistant
DX: N39.0 Urinary tract infection, site not specified (principal); R11.2 Nausea with vomiting, unspecified; R19.7 Diarrhea, unspecified; J44.9 Chronic obstructive pulmonary disease, unspecified; I25.2 Old myocardial infarction; I42.9 Cardiomyopathy, unspecified; I10 Essential (primary) hypertension; E78.5 Hyperlipidemia, unspecified; E03.9 Hypothyroidism, unspecified; D64.9 Anemia, unspecified; K21.9 Gastro-esophageal reflux disease without esophagitis; M06.9 Rheumatoid arthritis, unspecified; N32.81 Overactive bladder; F41.8 Other specified anxiety disorders; F17.290 Nicotine dependence, other tobacco product, uncomplicated; Z87.442 Personal history of urinary calculi; Z86.19 Personal history of other infectious and parasitic diseases; Z79.899 Other long term (current) drug therapy; Z79.620 Long term (current) use of immunosuppressive biologic
CPT/HCPCS: 36415; 80053; 81001; 83690; 83735; 85025; 87086; 96361; 96374; 96375; 99284; J1200; J2405; J2765; J7030

== ENCOUNTER 2025-02-05 13:01 | Outpatient (CLI) | payer MEDICARE, MEDICAID, SELFPAY ==
--- OUTSIDE RECORDS SUMMARY | 2025-02-05 13:12 | XMS_ITS | Clinical Summary ---
Author Organization [facility] Address [address] [place] [address] Care Team Providers Care Dehorner Name Role Phone Anupama Cuba MD Primary Care Provider [phone] Nemesio Antony MD Unavailable Allergies Active Allergy Reactions Criticality Noted Date Comments Methotrexate Contact Dermatitis,Rash Medium 03/13/2022 Tape Other (see comment) Low 04/12/2021 bandaids-takes skin off Medications levothyroxine (SYNTHROID) 200 MCG tabletIndicatio ns:Hypothyroidi sm Take 1 tablet (200 mcg total) by mouth every morning. Indications: Underactive Thyroid Active carvedilol (COREG) 12.5 MG tabletIndicatio ns:Hypertension Take 1 tablet (12.5 mg total) by mouth 2 (two) times daily. Indications: High Blood Pressure Active methadone 10 MG tabletIndicatio ns:Medication-A ssisted Treatment (MAT),PATIENT REPORTED THIS DOSE DAILY FROM [facility] Take 8 tablets (80 mg total) by mouth daily. Indications: Medication-Elliott alejandra Treatment (MAT), PATIENT REPORTED THIS DOSE DAILY FROM [facility] Active aspirin 81 MG tabletIndicatio ns:Anticoagulan t Therapy,hasn't been taking it recently Take 1 tablet (81 mg total) by mouth. Indications: Anticoagulant Therapy, hasn't been taking it recently Active duloxetine 30 MG capsuleIndicati ons:Anxiety,Dep ression Take 1 capsule (30 mg total) by mouth nightly at bedtime. Indications: Depression, Feeling Anxious Active cloNIDine 0.2 MG tabletIndicatio ns:Hypertension Take 1 tablet (0.2 mg total) by mouth 2 (two) times daily. Indications: High Blood Pressure Active VENTOLIN HFA 108 (90 Base) MCG/ACT inhaler Inhale 2 puffs into the lungs every 4 (four) hours as needed for Wheezing. Active cyclobenzaprine 10 MG tablet Take 1 tablet (10 mg total) by mouth nightly as needed for Muscle Spasms. Active pilocarpine 5 MG tabletIndicatio ns:dry mouth Take 1 tablet (5 mg total) by mouth 3 (three) times daily as needed. Indications: dry mouth Active omeprazole 20 MG capsuleIndicati ons:Reflux Esophagitis Take 1 capsule (20 mg total) by mouth daily. Indications: Lower Esophagus Inflammation From Backflow of Stomach Acid Active DULoxetine 60 MG capsuleIndicati ons:Anxiety,Dep ression Take 1 capsule (60 mg total) by mouth daily. Indications: Depression, Feeling Anxious Active probiotic capsuleIndicati ons:Nutritional Support Take 1 capsule by mouth daily with breakfast. Indications: Nutritional Support Active clobetasol 0.05 % external solutionIndicat ions:Psoriasis Apply topically 2 (two) times daily. Indications: Psoriasis Active hydrOXYzine 25 MG tablet Take 1 tablet (25 mg total) by mouth 4 (four) times daily as needed for Itching or Anxiety. Active calcipotriene 0.005 % ointmentIndicat ions:Psoriasis Apply topically as needed. Indications: Psoriasis Active HUMIRA PEN-PSOR/UVEIT STARTER 80 MG/0.8ML & 40MG/0.4ML pen-injector kitIndications: Psoriasis Inject into the skin every 14 (fourteen) days. Indications: Psoriasis Active furosemide (LASIX) 20 MG tabletIndicatio ns:Edema, unspecified type Take 1 tablet (20 mg total) by mouth daily. 30 tablet 11 Active Additional Information Patient taking differently: 40 mgOral Daily, Reported on 01/28/2025 cetirizine (ZYRTEC) 10 MG tablet Take 1 [...] mouth every 7 days. Active COMPRESSION STOCKINGS, DME,Indications :Lower Leg Pain,Varicose Veins,post varithena Indications: Lower Leg Pain, Varicose Veins, post varithena Thigh high compression stockings, 20-30 mmHg, will be put on leg during procedure. Will need to keep on until follow up appointment 5-7 days post procedure. Then follow post procedure directions. 1 Package 3 024 Active mirabegron ER (MYRBETRIQ) 50 MG 24 hr tabletIndicatio ns:Urinary Incontinence Take 1 tablet (50 mg total) by mouth daily. Indications: Urinary Incontinence 021 2024 Discontinued nitroglycerin 0.[address] 1 tablet (0.4 mg total) under the tongue every 5 (five) minutes as needed for Chest Pain. 2024 Discontinued amiodarone (PACERONE) 200 MG tablet Take 1 tablet (200 mg total) by mouth daily. 2024 Discontinued predniSONE (DELTASONE) 20 MG tablet Take 1 tablet (20 mg total) by mouth daily for 4 days. 4 tablet 025 2024 Active Problems Problem Noted Date Diagnosed Date Engages in vaping 12/13/2022 Other insomnia 12/11/2021 Small airways disease 04/09/2021 Complex sleep apnea syndrome 04/09/2021 Shortness of breath 01/28/2021 Smoking 01/28/2021 Chronic venous insufficiency 09/27/2020 Anti-CLINICAL TRIALS SYSTEMS ADMINISTRATOR antibodies present 11/30/2014 Psoriasis 09/20/2014 Myalgia and myositis 09/20/2014 Chronic hepatitis C virus infection (CMS/HCC HHS /HCC) 09/20/2014 Overview (02/13/2021): Hepatitis B core antibody non reactive no immunity to hepatitis B Genotype 1a or 1b fibroscan Date of Exam: 11/08/2020 (LSM, kPa 11.1 CAP 258 Chronic low back pain 09/20/2014 Varicose veins of bilateral lower extremities with other complications Encounters Date Type Department Care Team Description 01/28/2025 12:18 PM CDT - 01/28/2025 12:59 PM CDT Emergency [facility] [address] [place] [address] [address] [place], [place] [id number] Valdemar Mccall MD Hip Pain Discharge Disposition: Home or Self Care (Routine Discharge) 01/28/2025 Travel from Last 3 Months Family History Medical History Relation Comments heroin [...] Information Value Date Recorded Sex Assigned at Female 01/28/2025 12:28 PM CDT Legal Sex Female 9:52 PM AVIONIC TECHNICIAN Gender Identity Female 01/28/2025 12:28 PM CDT Sexual Orientation Not on file Occupation Industry Job Start Date Job End Date Not on file Not on file Not on file Not on file Last Filed Vital Signs Vital Sign Reading Time Taken Comments Blood Pressure 147/84 01/28/2025 12:30 PM CDT Pulse 84 01/28/2025 12:23 PM CDT Temperature 35.9 C (96.7 F) 01/28/2025 12:23 PM CDT Respiratory Rate 20 01/28/2025 12:23 PM CDT Oxygen Saturation 98% 01/28/2025 12:30 PM CDT Inhaled Oxygen Concentration - - Weight 99.8 kg (220 lb) 01/28/2025 12:23 PM CDT Height 162.6 cm (5' 4) 01/28/2025 12:23 PM CDT Body Mass Index 37.76 01/28/2025 12:23 PM CDT Plan of Treatment Health Maintenance [...] ( season) 2024 10/28/2020, 10/07/2020 PHQ-2 (Physician [place]) 07/15/2024 Colorectal Cancer Screening Colonoscopy (10 Years) 01/06/2029 01/06/2019 Colorectal Cancer Screening FIT-DNA (3 Years) Discontinued 10/24/2020 Hepatitis C Completed 05/02/2021, 01/13, 12/09/2020, Additional history exists Meningococcal B Vaccine Aged [...] significant change from the prior exam. us aJnet Tyler PA-C MAMMO Final Resul t * COLOGUARD ([employer]) (10/24/2020 7:30 AM CDT) COLOGUARD RESULT Negative Not Applicable [facility] (CLIA #:[id number]) Comment: A negative result indicates a low [...] (Dwayne Brooks al, N Engl J Med 2014;370(14):8400-0606) The normal value (reference range) for this assay is negative. COLOGUARD RE-SCREENING RECOMMENDATION: Periodic routine colorectal cancer screening is an important part of preventive healthcare for asymptomatic persons at average risk for colorectal cancer. Following a negative Cologuard result, the [place] [employer] and U.S. Multi-Society Task Force screening guidelines recommend a Cologuard re-screening interval of 3 years. References: [place] [employer] (ACS). Colorectal cancer prevention and early detection. [place], [place]: [employer] [place] [employer]; [updated 2015Nov 05]. https://www.cancer.org/cancer/amatm-yjczcw-mgcrnm/claktmtug-butoinkqo-kejbkch/ac s-rec ommendations.html. Accessed March 14, 2018; Thomas RODRIGUEZ, Sebastian MCCALL, Noah OTERO, Colorectal Cancer Screening: Recommendations for Physicians and Patients from the U.S. Multi-Society Task Force on Colorectal Cancer Screening, Am J Gastroenterology 2017; 112:7409-5360. TEST TYPE: Composite algorithmic analysis of stool [...] interval of every 3 years by the [place] [employer] and U.S. Multi-Society Task Force. [...] can be accessed at the following location: www.[employer].I Gotchu/results. Additional description of the Cologuard test process, warnings and precautions can be found at www.cologuardtest.com. Rx only. Stool specimen (specimen) STOOL SPECIMEN / Unknown 10/24/2020 7:30 AM CDT 10/25/2020 12:27 PM CDT Marilyn Fuller NP BODY FLUIDS AND STOOLS ORDERABLE S Final Result [facility] [facility]) [address] [place] [address], [facility] (CLIA #:[id number]) [address] [place] [address] * COLONOSCOPY/EGD (01/06/2019) us Documents Scanned SCANNING Edited Result - Final from Last 3 Months or Most Recently Relevant to Health Maintenance Insurance MEDICAID Member Subscriber Plan / Payer (Ef fective 2020-Present) Name:Roslyn Pardo Relation to Subscriber:Self Name:Roslyn Pardo Payer ID:Not on file Group ID:Not on file Type:Not on file Address: [address] Advance Directives Documents on File Type Date Recorded Patient Dietary Worker Expl anation Advance Directives and Living Will 12/08/2019 12:00 AM ADVANCED DIRECTIVES Advance Directives and Living Will 01/06/2019 12:00 AM ADVANCED DIRECTIVES Care Teams Dehorner Relationship Specialty Start Date End Date Anupama Cuba MD [address] [place] [address] PCP - General FAMILY PRACTICE 08/26/20 Nemesio Antony MD [address] [place] [address] Consulting Physician INTERNAL MEDICINE 01/05/22
--- OUTSIDE RECORDS SUMMARY | 2025-02-05 13:12 | XMS_ITS | Encounter Summary ---
Author Organization [facility] Address [address] [place], [place] [address] [place] [address] Care Team Providers Care Php Mysql Web Developer Name Role Phone Enrique Gandhi MD Primary Care Provider [phone] Anupama Cuba DO Primary Care Provider [phone]- [phone] Janet You PA-C Primary Care Provider [phone] Reason for Visit * Reason Onset Date Comments MEDICATION REFILL 07/28/2018 Encounter Details Date Type Department Care Team (Late st Contact Info) Description 07/28/2018 Refill [facility] [address] [place] [address] Mary Jo Dukes MD [address] [place] [address] MEDICATION REFILL Social History Tobacco Use Types Packs/Day Years Used Date Smoking Tobacco: Never Assessed Comments Unknown Sex and Gender Information Value Date Recorded Sex Assigned at Not on file Legal Sex Female 11:02 AM MENTAL HEALTH 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 Gender Identity Not on file Sexual Orientation Not on file documented as of this encounter Plan of Treatment Not on file documented as of this encounter Visit Diagnoses Not on filedocumented in this encounter Care Teams Php Mysql Web Developer Relationship Specialty Start Date End Date Enrique Gandhi MD [address] [facility] [address] [place] [address] PCP - General Family Medicine 06/20/16 11/02/20 Anupama Cuba DO [address] [facility] [address] [place] [address] PCP - General 11/03/20 07/10/22 Janet You, PA-C [address] [place] [address] PCP - General 07/11/22 documented as of this encounter
--- OUTSIDE RECORDS SUMMARY | 2025-02-05 13:12 | XMS_ITS | Referral Summary ---
Author Organization [facility] Address [address] [place] [address] Care Team Providers Care Panel Beater Name Role Phone Anupama Cuba MD Primary Care Provider [phone] Allergies Active Allergy Reactions Criticality Noted Date [...] daily 04/18/20 22 Active adalimumab (Humira,CF, Pen Ignw-Pi-Uvfh HS) 80 mg/0.8 mL-40 mg/0.4 mL pen [...] total) by mouth daily 15 tablet 11 01/02/20 24 Active cyanocobalamin (Vitamin B-12) 1,000 mcg tabletIndicati ons:Prevention of Vitamin B12 Deficiency Take 0.5 tablets (500 mcg total) by mouth daily 15 tablet 11 01/02/20 24 Active folic acid (FOLVITE) 400 mcg tabletIndicati ons:Memory loss Take 1 tablet (0.4 mg total) by mouth daily 30 tablet 11 01/02/20 Active Active Problems Problem Noted Date Diagnosed Date Primary hypertension 06/24/2024 Mixed hyperlipidemia 06/24/2024 Memory loss 04/23/2023 History of ventricular tachycardia 09/07/2022 Coronary artery disease invo lving [place] coronary artery of [place] heart without angina pectoris 09/07/2022 History of [...] on file Legal Sex Female 7:28 PM OIL EXTRACTOR Gender Identity Not on file Sexual Orientation Not on file Last Filed Vital Signs Vital Sign Reading Time Taken Comments Blood Pressure 146/82 06/24/2024 8:01 AM OIL EXTRACTOR Pulse 61 06/24/2024 8:01 AM OIL EXTRACTOR Temperature 36.9 C (98.4 F) 11/01/2023 7:40 AM CDT Respiratory Rate 16 11/01/2023 9:28 AM CDT Oxygen Saturation 99% 06/24/2024 8:01 AM OIL EXTRACTOR Inhaled Oxygen Concentration - - Weight 99.8 kg (220 lb) 06/24/2024 8:01 AM OIL EXTRACTOR Height 162.6 cm (5' 4) 06/24/2024 8:01 AM OIL EXTRACTOR Body Mass Index 37.76 06/24/2024 8:01 AM OIL EXTRACTOR Plan of Treatment Not on file Insurance AET MEDICARE GOLD [facility] AETNA MEDICARE GOLD [facility] MEDICARE ADVANTAGE [facility] MEDICARE Address: [address] [address] [place] [address] Advance Directives For more information, please contact: [phone] * Full Code (Latest Code Status on File) Date Activated Date Inactivated Comments 11/01/2023 8:52 AM 11/02/2023 4:37 AM * Full Code Date Activated Date Inactivated Comments 05/29/2023 10:01 AM 05/30/2023 4:39 AM Care Teams Panel Beater Relationship Specialty Start Date End Date Anupama Cuba MD [address] [place] [address] PCP - General Family Medicine 09/27/22
--- OUTSIDE RECORDS SUMMARY | 2025-02-05 13:12 | XMS_ITS | Clinical Summary ---
Author Organization [facility] Address [address] [facility] [place] [address] Care Team Providers Care Finishing Machine Operator Automatic Name Role Phone Janet You PA-C Primary Care Provider [phone] Source Comments [facility],non-owned Affiliates and Associated Physician Practices is amultiple site organization consisting of ambulatory clinics and hospital sitesin [place], [place], [place] and [place]. This disclosure is being madepursuant to the Care Everywhere program and may not contain all information available regarding this patient. 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 Gender Identity Not on file Sexual [...] 10:31 AM CDT Height 162.6 cm (5' 4) 05/05/2021 10:3 1 AM CDT Body Mass Index 40.78 05/05/2021 10:31 AM CDT Plan of Treatment Health Maintenance Due Date Last Done Comments KERRIE (AGES 45-75) - COLON CA SCREENING 1965 COLON MONITORING 1965 COLONOSCOPY - COLON CA SCREENING 1965 CT COLONOGRAPHY - COLON CA SCREENING 1965 Colorectal Cancer Screening 1965 FIT - COLON CA SCREENING 1965 FLEX SIG - COLON CA SCREENING 1965 MAMMOGRAM 1965 MEDICARE AWV 12 MONTHS 1965 HIV SCREENING 1980 DTAP/TDAP/TD VACCINES (1 - Tdap) 1984 HEPATITIS B VACCINE (1 of 3 - 19+ 3-dose series) 1984 PNEUMOCOCCAL VACCINE 50+ (1 of 2 - PCV) 1984 PAP SMEAR 1986 ZOSTER VACCINE (1 of 2) 2015 COVID-19 VACCINE (3 - season) 2024 10/28/2020, 10/07/2020 SCREENING FOR DIABETES 05/09/2024 , 02/07/2021, 12/09/2020, Additional history exists DEPRESSION SCREENING 07/15/2024 INFLUENZA VACCINE (#1) 2025 04/10/2019, 2016 HEPATITIS C SCREENING Completed 05/05/2021 , 05/05/2021, [...] approximately 13% higher for people identified as -[place]. eGFR by MDRD 57(L) > OR = [...] 29 U/L [facility] Comment: Test Performed at: [facility] [address] [address] TORSTEN BROWN DO,MPH Blood BLOOD SPECIMEN / Unknown 05/09/2021 8:47 AM CDT 05/09/2021 8:48 AM CDT us Regina Deluca PATHOLOGY TECH-JAVASCRIPT PROGRAMMER LAB - CHEMISTRY LEIDY NELSON Final Result [facility] [id number] [place] [address] * HEPATITIS C RNA QUANTITATIVE (05/02/2021 8:49 AM CDT) Pathologist [facility] Hepatitis C Virus RNA, Quantitative Real Time PCR <15 NOT DETECTED NOT DETECTED IU/mL [facility] Hepatitis C Virus RNA, Quantitative Real Time PCR <1.18 NOT DETECTED NOT DETECTED Log IU/mL [facility] Comment: This test was performed using Real-Time Polymerase Chain Reaction. Reportable Range: 15 IU/mL to 100,000,000 IU/mL (1.18 Log IU/mL to 8.00 Log IU/mL). The analytical performance characteristics of this assay have been determined by [employer]. The modifications have not been cleared or approved by the FDA. This assay has been validated pursuant to the CLIA regulations and is used for clinical purposes. For more information on this test, go to: http://education.[employer]/faq/YXZ35f2 (This link is being provided for informational/ educational purposes only.) REPORT COMMENT: CC DR Lynnette LE Test Performed at: [facility] [address] [place] [address] TORSTEN BROWN DO,MPH 05/02/2021 8:49 AM CDT 05/02/2021 8:49 AM CDT Regina Deluca PATHOLOGY TECH-JAVASCRIPT PROGRAMMER LAB - CHEMISTRY LEIDY NELSON Final Result [facility] [address] [place] [address] from Last 3 Months or Most Recently Relevant to Health Maintenance Insurance AETNA MEDICAID - [place] MEDICARE MEDICAID - [facility] AETNA Care Teams Finishing Machine Operator Automatic Relationship Specialty Start Date End Date Janet You PA-C [address] [place] [address] PCP - General 07/11/22
--- OUTSIDE RECORDS SUMMARY | 2025-02-05 13:12 | XMS_ITS | Encounter Summary ---
Author Organization [facility] Address [facility] [place] [address] Care Team Providers Care Switchboard Operator Name Role Phone Enrique Gandhi MD Primary Care Provider [phone] Anupama Cuba DO Primary Care Provider [phone] Janet You PA-C Primary Care Provider [phone] Reason for Visit * Reason Onset Date Comments MEDICATION REFILL 02/12/2018 Encounter Details Date Type Department Care Team (Late st Contact Info) Description 02/12/2018 Refill [facility] [address] [place] [address] Mary Jo Dukes MD [address] [place] [address] MEDICATION REFILL Social History Tobacco Use Types Packs/Day Years Used Date Smoking Tobacco: Never Assessed Comments Unknown Sex and Gender Information Value Date Recorded Sex Assigned at Not on file Legal Sex Female 11:02 AM DATA ENTRY ASSOCIATE Gender Identity Not on file Sexual Orientation Not on file documented as of this encounter Plan of Treatment Not on file documented as of this encounter Visit Diagnoses Not on filedocumented in this encounter Care Teams Switchboard Operator Relationship Specialty Start Date End Date Enrique Gandhi MD [address] [facility] [address] [place] [address] PCP - General Family Medicine 06/20/16 11/02/20 Anupama Cuba DO [address] [facility] [address] [place] [address] PCP - General 11/03/20 07/10/22 Janet You, PA-C [address] [place] [address] PCP - General 07/11/22 documented as of this encounter
--- OUTSIDE RECORDS SUMMARY | 2025-02-05 13:12 | XMS_ITS | Encounter Summary ---
Author Organization [facility] Address [facility] [place] [address] Care Team Providers Care Device Repair Technician Name Role Phone Anupama Cuba MD Primary Care Provider [phone] Nemesio Antony MD Unavailable Nemesio Antony MD Unavailable Encounter Details Date Type Department Care Team (Late st Contact Info) Description 09/26/2020 [facility] [address] [place] [id number] Nemesio Antony MD [address] [facility] [address] [place] [address] Social History Tobacco Use Types [...] PM CDT Legal Sex Female 9:52 PM STATEMENT CLERKS MANAGER Gender Identity Female 01/28/2025 12:28 PM CDT Sexual Orientation Not on file COVID-19 Exposure [...] Rule Out 12/05/2019 12/05/2019 06/05/2021 3:01 PM STATEMENT CLERKS MANAGER documented as of this encounter Care Teams Device Repair Technician Relationship Specialty Start Date End Date Anupama Cuba MD [address] [place] [address] PCP - General FAMILY PRACTICE 08/26/20 Nemesio Antony MD [address] [place] [address] Vascular/It Application Support Analyst INTERNAL MEDICINE 08/26/20 Nemesio Antony MD [address] [place] [address] [address] Consulting Physician INTERNAL MEDICINE 01/05/22 documented as of this encounter
--- OUTSIDE RECORDS SUMMARY | 2025-02-05 13:12 | XMS_ITS | Clinical Summary ---
Author Organization [facility] Address [address] [place] [address] Phone Care Team Providers Care Brand Strategist Name Role Phone Ck Leal Primary Care Provider [phone] Allergies No known active allergies Medications DULoxetine [...] Date Smoking Tobacco: Every Day Cigarettes 0.5 8.1 Started: 12/13/2016 Smokeless Tobacco: Never Tobacco Cessation:Ready [...] 9:50 AM CDT Height 162.6 cm (5' 4) 11/12/2018 9:50 AM CDT Body Mass Index 37.76 11/12/2018 9:50 AM CDT Plan of Treatment Health Maintenance Due Date Last Done Comments TdaP Immunization 1965 Pap Smear 1986 Cervical Cancer Screening (CCS) 1995 HPV/Cotest 1995 Cologuard 2010 Colonoscopy 2010 Colorectal Cancer Screening 2010 Immunochemical Fecal Occult Blood 2010 Pneumococcal Immunization (5 0+ years) (1 of 1 - PCV) 2015 Zoster Immunization (1 of 2) 2015 Hepatitis B Immunization (2 of 3 - 19+ 3-dose series) 11/28/2016 10/31/2016 SARS-COV-2 Immunization ( - 2023- season) 2024 05/23/2021, 10/28/2020, 10/07/2020 Influenza Immunization (#1) 2025 11/0 09/2016, 10/08/2014 Respiratory Syncytial Virus (RSV) Immunization (Adult) (1 - 1-dose 75+ series) 2040 Human Papillomavirus (HPV) Immunization Aged Out No longer eligible b ased on patient's age to complete this topic Meningococcal Immunization (ACWY) Aged Out No longer eligible b ased on patient's age to complete this topic Rotavirus Immunization Aged Out No lo nger eligible based on patient's age to complete this topic Insurance MEDICARE MEDICAID [place] Care Teams Brand Strategist Relationship Specialty Start Date End Date Ck Leal PAC [address] [place] [id number] PCP - General Physician Parachute Cushion Installer 07/27/15
--- OUTSIDE RECORDS SUMMARY | 2025-02-05 13:12 | XMS_ITS | Patient Health Record ---
Author Organization [facility] Address [address] [place] [address] Care Team Providers Care Lead Vulcanizing Operator Name Role Phone Jose Muñoz Primary Care Provider Reason For Referral No Information Medications Medication SIG (Take, Route, Frequency, Duration) Notes Start Date End Date Status Ranitidine HCl 150 MG take 1 tablet (150 MG) by oral route 2 times every day Oral ([facility]) 05/23/2012 Active Ibuprofen 600 MG take 1 tablet (600MG ) by oral route 2 times every day with food Oral ([facility]) 10/26/2011 Active Colcrys 0.6 MG take 2 tablet (1.2MG ) by oral route initially, then take 1 tablet in 1 hour Oral ([facility]) 10/26/2011 Active Betamethasone Dipropionate 0.05 % apply by topical route every day a thin layer to the affected area(s) External ([facility]) 08/02/2011 Active Plan Of Treatment No Information Medical (General) History Surgical History Surgery Date(Month/Year) Appendectomy 1988
--- OUTSIDE RECORDS SUMMARY | 2025-02-05 13:12 | XMS_ITS | Data Portability ---
Author Organization [facility] Address [address] [place] [address] Care Team Providers Care Pricing Associate Name Role Phone LIZA LEAL Primary Care Provider JEN BROWER OTHER Assessment No assessment recorded. Plan of Treatment Reminders Order Date Submit Date Provider Last Modified By Organization Details Last Modified Time Details Appointments None recorded. Lab None recorded. Referral ENT referral 2019 [facility], 2 [facility], [address], [place], [address], 0 12:32:51 urogynecol ogist referral 2019 [place] Anaid Boggs, [address] , [facility] [address], [place], [address], 0 11:16:05 Procedures None recorded. Surgeries None recorded. Imaging XR, toe(s), 2 or more view 2019 [facility] (Admitting), [facility] [address], [place], [address], 0 11:20:31 XR, foot, 3 or more view 2019 [facility] (Admitting), [facility] [address], [place], [address], 0 11:20:31 XR, lumbar spine 2019 020 [facility] (Admitting), [address] [facility] [address], [place], [address], 0 15:25:32 XR, cervical spine 2019 020 [facility] (Admitting), [address] [facility] [address], [place], [address], 0 15:25:32 Medication Orders pilocarpin e 5 mg tablet 2019 020 [facility]3259, [address] [place], [address], 0 15:27:35 Diflucan 200 mg tablet 2019 020 [facility]Pharmacy #3259, [address] [place], [address], 0 10:43:38 fluconazol e 150 mg tablet 2019 020 [facility] #3259, [address] [place], [address], 0 14:34:22 oxybutynin chloride ER 10 mg tablet,ext ended release 24 hr 2019 020 [facility], [address] [place], [address], 0 14:41:23 cyclobenza niko 10 mg tablet 2019 020 [facility] [address], [address] [place], [address], 0 16:34:49 betamethas one valerate 0.1 % lotion 2019 020 [facility] [address], [address] [place], [address], 0 16:03:20 betamethas one dipropiona te 0.05 % topical cream 2019 [facility] [address], [address] [place], [address], 0 16:33:16 AirDuo RespiClick 113 mcg-14 mcg/actuat ion breath activated 2019 020 [facility] [address], [address] [place], [address], 0 16:28:15 ProAir HFA 90 mcg/actuat ion aerosol inhaler 2019 [facility] [address] [place], [address], 0 16:28:11 Patient TargetsNo targets recorded. Patient Instructions Encounter Date Encounter Id Patient Instructions Last Modified By Organization Details Last Modified Time 09/11/2019 [id number] bladder training : care instructions jnanney Not available 09/11/2019 16:36:41 kegel exercises: care instructions jnanney Not available 09/11/2019 16:36:40 Stress Incontinence: Care Instructions jnanney Not available 09/11/2019 16:36:40 psoriasis: care instructions jnanney Not available 09/11/2019 16:33:06 11/12/2019 [id number] vaginal yeast infection: care instructions jnanney Not available 11/12/2019 14:34:20 candidiasis: car e instructions jnanney Not available 11/12/2019 14:34:20 12/31/2019 [id number] candidiasis: car e instructions jnanney Not available 12/31/2019 17:09:45 she will have pharmacy call us for refills.. jnanney Not available 12/31/2019 17:05:53 03/11/2020 [id number] candidiasis: car e instructions jnanney Not available 03/11/2020 15:29:16 Reason for Referral Urogynecologist Referral for Female stress incontinence Referring Physician: Liza Leal, Family Medicine, Encounter Date: 09/11/2019 ENT Referral for Candidiasis of mouth Referring Physician: Liza Leal, Family Medicine, Encounter Date: 03/11/2020 Results Created Date Observation Date Name Description Value Unit Range Abnormal Flag Note LastModifiedBy Organization Detail LastModifiedTime Result Notes None recorded. Problems Name Problem SNOMED Code Status Onset Date Resolution Date Notes Provider Name and Address Organization Details Recorded Time Low back pain 509551522 Active Harrietteetee Villegas [place], [place] - [facility] 6 15:26:30 Pain in toe 116089015 Active Harriet DaigleFINA calles [place], [place] [facility] 6 15:26:30 Osteomyelit is 10509938 Active Harriet PiloFINA calles [place] [facility] 6 15:26:30 Chronic hepatitis 21987831 Completed 09/26/2016 Bryon Smith PA-C Attn: Accountin g,[address] [facility], [place], [address], [place] - [facility] 7 11:28:49 Complaining of pelvic pain Active Harriet DaigleFINA calles [place] [facility] 6 15:26:30 Hyperglycem ia 72810098 Active Harriet PiloFINA calles [place] [facility] 6 15:26:30 Psoriasis 5640511 Active Liza Leal PA-C Attn: Accountin g,[address] [place], [address], [place] [facility] 6 15:59:19 Chronic depression 006859912 Active Liza Leal PA-C Attn: Accountin g,[address] [facility], [place], [address], [place] [facility] 6 15:59:19 Arthritis 3239620 Active Liza Leal PA-C Attn: Accountin g,[address] [facility], [place], [address], [place] - [facility] 6 15:59:19 Dry eyes 795133178 Active Liza Leal PA-C Attn: Accountin g,[address] [facility], [place], [address], [facility] - [facility] 6 15:59:19 Ulcer of mouth 21650483 Active Harriet Villegas MA null, [place] - [facility] 6 15:26:30 History of appendectom y 581234919 Active 2016 Bryon Smith PA-C Attn: Kitty brewer,[address] [facility], [place], [address], [facility] - [facility] 7 11:28:38 Obesity 596007703 Active 2016 Bryon Smith PA-C Attn: Kitty brewer,[address] [facility], [place], [address], [facility] - [facility] 7 11:28:39 Chronic hepatitis C 848096926 Active 2016 Bryon Smith PA-C Attn: Kitty brewer,[address] [facility], [place], [address], [facility] - [facility] 7 11:28:42 Problem Notes None recorded. Procedures Surgical History Date Name Laterality Status Provider Name and Address Organization Details Recorded Time 11/07/19 14 Date of Last Pap Smear completed Lisa Brewer MA [facility] 02/10/2015 09:42:37 Appendectomy completed Nilda Carrington MA [facility] 06/04/2014 12:19:16 Tonsillectomy completed Nilda Carrington MA [facility] 06/04/2014 12:19:16 Imaging Results None recorded. Procedure Notes None recorded. Medical Equipment None Reported. Allergies No known drug allergies Medications Name Sig Start Date Stop Date Status Note LastModified by Organization Details LastModified Time ventolin hfa 108 mcg/act aers 01/06 completed Not Available Not Available Not Available nystatin 431335 unit/ml susp 01/06 completed Not Available Not [...] blood by Pulse oximetry Heart rate Systolic And Diastolic Provider Name and Address Organization Details Last Updated DateTime 0 162.56 cm 40.4 kg/m2 173741. 66 g 98 % 98 % 63 /min 112/72 mm[Hg] Li Dey MA [facility] 0 16:03:10 Date Recorded Body height Provider Name an d Address Organization Details Last Updated DateTime 03/11/2020 162.56 cm Jackie Brown MA [facility] 03/11 15:18:18 Social History Question Answer Notes LastModified by Organizat ion Details LastModified Time Tobacco Smoking Status Current Every Day Smoker Mily Baez MA [facility], [facility] 02/05/2020 14:42:06 Do You Have An Advance Directive? No Information not available 10/31/2016 What Is Your Level Of Caffeine Consumption? Moderate Information not available 10/31/2016 How Much Tobacco Do You Chew? None Information not available 10/31/2016 What Type Of Diet Are You Following? REGULAR Information not available 10/31/2016 Which Illicit Or Recreational Drugs Have You Used? None Information not available 10/31/2016 Education 12 Information no t available 10/31/2016 Are There Any Guns Present [...] In Home Yes Information not available 10/31/2016 How Much Tobacco Do You Smoke? 0.5 [...] Functional Status Question Answer Note LastModified by Organizat ion Details LastModified Time What is your level of alcohol consumption? None [email or web address] Information not available 02/10/2015 Do you or have you ever used smokeless tobacco? Never used smokeless tobacco Information not available 09/11/2019 What is your occupation? disabled Information not available 10/31/2016 Do you or have you ever used e-cigarettes or vape? Never used electronic cigarettes Information not available 09/11/2019 What is your exercise level? None Information [...] Skin Problems Y Anemia N Heart Attack (NM) N Anxiety Disorder N Diabetes N Muscle, [...] mL dose 1 completed Hayreen Lawanda bent[place], [place] - [facility] 12/14/2020 09:12:47 COVID-19, mRNA, LNP-S, PF, 30 mcg/0.3 mL dose 1 completed Hayreen Lawanda bentley, [place] - [facility] 12/14/2020 09:13:04 Hep B, adult 7 completed Not Available [facility] 08/01/2019 02:45:29 Influenza, split virus, quadrivalent, preservative 7 completed Not Available [facility] 08/01/2019 02:51:06 Influenza, split virus, quadrivalent, preservative 9 completed Not Available [facility] 08/01/2019 02:47:16 Past Encounters Encounter ID Performer Location Encounter Start Date Encounter Closed Date Diagnosis/Indication Diagnosis SNOMED-CT Code Diagnosis ICD10 Code Diagnosis Note [id number] Liza Leal PA-C [facility] [address] [place] [address] 06/04/2014 12:01:17 06/04/2014 14:49:28 Ulcer of mouth 49891600 [id number] Liza Leal PA-C [facility] [address] [place] [address] 09/17/2014 11:27:15 09/17/2014 12:56:57 Low back pain 623011462 Pain in toe 790990615 [id number] Liza Leal PA-C [facility] [address] [place] [address] 09/22/2014 14:17:08 09/22/2014 14:53:03 [facility] [id number] MD Polly [facility] ([address]) [address] [facility] [address] [place] [address] 02/10/2015 09:24:06 02/10/2015 10:33:18 Gynecologic examination 54732641 [id number] MD Anna Moscoso [address] [place] [address] 02/24/2015 11:12:12 02/24/2015 11:46:17 Low back pain 201039882 Chronic hepatitis 60283152 [id number] MD Anna Moscoso [address] [place] [address] 04/13/2015 11:21:16 04/13/2015 12:05:27 Osteomyelitis 22877594 Low back pain 255474326 Chronic hepatitis 18489648 Hyperglycemia 41635374 Psoriasis 2526500 [id number] Enrique Gandhi MD [facility] [address] [place] [address] 04/27/2015 11:15:44 04/27/2015 11:49:36 Chronic hepatitis 75043066 K73.9 [id number] Enrique Gandhi MD [facility] [address] [place] [address] 05/31/2015 18:18:59 05/31/2015 18:35:02 Chronic depression 552480602 F34.1 [id number] Liza Leal PA-C [facility] [address] [place] [address] 03/20/2016 15:19:38 03/20/2016 16:05:46 Chronic depression 419134048 F34.1 Chronic hepatitis 581489 07 K73.9 Arthritis 0532944 M19.90 Psoriasis 3732601 L40.9 Dry eyes 484885047 H04.1 29 [id number] Enrique Gandhi MD [facility] [address] [place] [address] 08/17/2016 14:53:51 08/17/2016 15:52:04 Chronic hepatitis 82816531 B18.2 [id number] Bryon Smith PA-C [facility] [address] [place] [address] 09/26/2016 09:48:01 09/26/2016 12:48:48 Chronic hepatitis C 068613191 B18.2 Genotype 1a 51 y/o C female Dx HCV+ 2004 [facility] [place] [place]Risk Factors: +IVDU, +non-profe ssional tattooShe is [...] 1 - 2 months for f/u Obesity 759126928 E66.9 BMI: 39 History of appendectomy 023378132 Z98.890 ~ 5179 [id number] Bryon Smith PA-C [facility] [address] [place] [address] 10/31/2016 09:42:01 11/02/2016 13:05:54 Chronic hepatitis C 741296592 B18.2 Genotype 1a 51 y/o C female Dx HCV+ 2004 while attending an inpatient drug rehab program ([place], [place])Risk Factors: +IVDU, +non-profe ssional tattooShe is [...] of her Fibrosis score and the current Gray HCV Tx formulary restrictio ns.Will initiate the Hep B vaccine series today RTC 12 months Obesity 897864800 E66.9 BMI: 39 History of appendectomy 474943960 Z98.890 ~ 6355 [id number] Liza Leal PA-C [facility] [address] [place] [address] 04/10/2017 10:23:08 04/10/2017 13:38:59 Urinary incontinence 627845575 N39.41 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 Osteoarthritis 274371482 M15.0 Chronic depression 49287 0009 F34.1 Coronary arteriosclerosis 30763797 I25.10 [id number] Liza Leal PA-C [facility] [address] [place] [address] 05/17/2017 11:09:48 05/17/2017 14:00:55 Female stress incontinence 56254750 N39.3 Hematochezia 702756697 K 92.1 Psoriasis of scalp 65917 8008 L40.9 Obstructiv e sleep apnea syndrome 48649421 G47.33 Acute oste omyelitis of phalanx of toe 646164666 M86.179 Administra tion of influenza vaccine 58710764 Z23 [id number] Jess Cosby, MEDICINAL CHEMIST-[facility] [address] [place] [address] 05/22/2017 13:33:19 06/03/2017 16:33:52 Screening mammography 48502519 Z12.31 Gynecologi c examination 66539047 Z01.344 [id number] Enrique Gandhi MD [facility] [address] [place] [address] 08/02/2017 13:35:46 08/02/2017 16:48:15 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 Acute oste omyelitis of phalanx of toe 898798301 M86.179 Onychomycosis 800184570 B35.1 Psoriasis 2772090 L40.0 Ingrowing toenail 685912 009 L60.0 [id number] Enrique Gandhi MD [facility] [address] [place] [address] 02/20/2018 11:39:04 02/20/2018 12:57:23 Psoriasis of scalp 720918537 L40.9 Chronic depression 38354 000 F34.1 Edema of l ower extremity 694474915 R60.0 Fecal occu lt blood: positive 030342557 R19.5 Coronary atherosclerosis 827859443 I25.10 [id number] Liza Leal PA-C [facility] [address] [place] [address] 09/09/2018 11:19:05 09/09/2018 12:57:45 Chronic hepatitis C 115751009 B18.2 Chronic depression 33606 000 F34.1 Hyperglycemia 99893287 R 73.9 Screening for malignant neoplasm of colon 104990320 Z12.11 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 258477976 E06.3 Rheumatoid arthritis 698 69645 M06.409 [id number] Liza Leal PA-C [facility] [address] [place] [address] 11/26/2018 11:49:21 11/26/2018 13:54:38 Screening for malignant neoplasm of colon 531364334 Z12.11 Chronic hepatitis C 1283 03894 B18.2 Prediabetes 467732539 R7 3.03 [id number] Liza Leal PA-C [facility] [address] [place] [address] 03/18/2019 11:52:53 03/18/2019 12:43:22 Pain of joint of ankle and/or foot 845565869 M79.529 [id number] [facility] [address] [place] [address] 03/26/2019 11:26:27 03/26/2019 15:50:53 Screening mammography 95402296 Z12.31 Importance of yearly mammograms and sbe exam discussed with pt. Mammogram order given, pt verbalized understand ing. Menopausal syndrome 1237 87969 N95.9 1. Discussed hormonal options and otc herbal options for menopausal management . Discussed risk factors and side effects associated with both options including increase risk of cancer, heart attack and stroke, blood clots. 2. Pt currently an every day smoker and has high bp which contraindi cates hrt. 3. Pt states she will see what happens. List of otc meds given to patient to help with symptoms. Instructed patient to consult with pharmacist regarding any interactio n current meds may have with herbal otc and pt verbalized understand ing. 4. Pt to call and schedule for annual or sooner if needed. Smoker 55536982 F17.200 smoking cessation reviewed [id number] ZURI [facility] [address] [place] [address] 04/10/2019 10:55:24 04/10/2019 12:20:27 Chronic hepatitis C 316570305 B18.2 Chronic depression 65761 0009 F34.1 Acute bron chitis with bronchospasm 26414535 J20.8 [id number] ZURI Ramirez [address] [place] [address] 04/29/2019 12:12:54 04/29/2019 16:51:16 Chronic hepatitis C 479754198 B18.2 Genotype 1a 51 y/o C female Dx HCV+ 2004 while attending an inpatient drug rehab program ([place], [place])Risk Factors: +IVDU, +non-profe ssional tattooShe is [...] sex acts. RTC next month at the [facility] location. Obesity 003868592 E66.9 BMI: 39.7 History of appendectomy 341374894 Z98.890 ~ 4296 [id number] Bryon Smith PA-C [facility] () [address] [place] [address] 06/04/2019 12:13:22 06/04/2019 14:19:15 Chronic hepatitis C 898423320 B18.2 Genotype 1a 51 y/o C female Dx HCV+ 2005 while attending an inpatient drug rehab program ([place], [place])Risk Factors: +IVDU, +non-profe ssional tattooShe is [...] prescribed by Dr. Theodore Burger at [facility] in [place], [place] for pain. Plan:Have placed a call [...] sign a commitment letter. History of appendectomy 100904717 Z98.890 ~ 1988 Morbid obesity 196741353 E66.01 BMI: 40 [id number] Liza Leal PA-C [facility] [address] [place] [address] 09/11/2019 15:51:28 09/11/2019 16:58:19 Acute bronchitis with bronchospasm 59018220 J20.8 Psoriasis 3918798 L40.0 Urinary incontinence [address] ess incontinence 83070611 N39.3 [id number] Liza Leal PA-C [facility] [address] [place] [address] 11/12/2019 09:16:10 11/13/2019 14:50:18 Candidiasis of mouth 68812808 B37.0 [id number] Liza Leal PA-C [facility] [address] [place] [address] 12/31/2019 09:54:15 01/01/2020 09:02:13 Chronic depression 260715059 F34.1 Candidiasis of mouth 797 33989 B37.0 [id number] Liza Leal PA-C [facility] [address] [place] [address] 02/05/2020 09:35:03 02/05/2020 14:58:49 Cervical radiculopathy 08179305 M54.12 Lumbar radiculopathy 128 616123 M54.16 [id number] Liza Leal PA-C [facility] [address] [place] [address] 03/11/2020 09:34:15 03/11/2020 15:42:44 Osteomyelitis of ankle AND/OR foot 95623480 M86.8X7 Pain of to e of right foot 8147437674 82017 M79.674 Mucous mem brane dryness 394686839 R68.89 Candidiasis of mouth 797 27645 B37.0 Health Concerns Section Related Observation LastModified by Organization Detai ls LastModified Time None Recorded Concern Status LastModified by Organization Details LastModified Time None Recorded Advance Directives Directive N: Payers Insurance Date Sequence Insurance Name Policy Number Policy Hatch Covered Member ID Hatch Member ID Guarantor Name 03/10/2020 1 [place] Roslyn S Levendoski [id number] Roslyn Pardo 09/11/2019 [place] - [facility] Roslyn S Gurpreetoszoya [id number] Roslyn Char 03/10/2020 [place] - [facility] Roslyn S Levendoski [id number] Roslyn Shiloendoszoya 04/04/2020 2 [place] WHEN MEDICARE OR MEDICARE REPLACEMENT PRIMARY) Roslyn Char [id number] Roslyn Shiloendoszoya 03/10/2020 [place] [facility] Roslyn S Levendoski [id number] Roslyn Pardo 02/11/2018 1 [facility] PRIOR TO 01/12/2021 (MEDICAID REPLACEMENT - HMO) Roslyn Pardo [id number] Roslyn Pardo 11/27/2018 2 [place] [facility] Roslyn Pardo [id number] Roslyn Pardo 02/20/2018 1 [facility] PRIOR TO 01/12/2021 (MEDICAID REPLACEMENT - HMO) Roslyn Pardo [id number] Roslyn Pardo Notes Date Note Type Note Provider Name and Address Organization Details Recorded Time 09/11/2019 text/html ROS as noted in the HPI 54 y/o female presents for routine f/u. No complaints. Liza Leal PA-C Attn: [address]ing,[address] [place], [place], [address] [place] [address], [facility] 09/11/2019 16:37:33 11/12/2019 text/html ROS as noted in the HPI sore throat feels like thrush...has had it before with advair... Liza Leal PA-C Attn: Accounting,[address] [place], [address], [facility] 11/12/2019 14:36:50 12/31/2019 text/html ROS as noted in the HPI her physician left needs refills.. Liza Leal PA-C Attn: Accounting,[address] [place], [place], [address] [place] [address], [facility] 12/31/2019 17:10:04 02/05/2020 text/html ROS as noted in the HPI feet and hands getting numb..feet feel likes blocks of wood..hx of sciatica Liza Leal PA-C Attn: Accounting,[address] [place], [address] [place] [address], [facility] 02/05/2020 14:50:25 03/11/2020 text/html ROS as noted in the HPI pain in great toe ( both feet ) needs xrays...also thrush is returning Liza Leal PA-C Attn: Accounting,[address] [place], [place], [address] [place] [address], [facility] 03/11/2020 15:29:57 OBGyn Episode Ob Episode Information Episode Created Date Number of Fetuses Patient Bloodtype Patient rh Status Prepregnancy Weight lbs Domestic Partner Domestic Partner Phone Father Name Model Set Artist Status 05/22/20 17 1 CLOSED Fetus Data First Name Last Name Admitted to NICU Weight (g) Sex Living Outcome Pediatric Complications Fetus ID Race Codes Race Delivery Type [id number] Geoffrey Calculation Initial Geoffrey Date Initial Exam [...] Domestic Partner Domestic Partner Phone Father Name Model Set Artist Status 05/22/20 17 1 CLOSED Fetus Data First Name Last Name Admitted to NICU Weight (g) Sex Living Outcome Pediatric Complications Fetus ID Race Codes Race Delivery Type F Full Term 49515 Geoffrey Calculation Initial Geoffrey Date Initial Exam [...] Domestic Partner Domestic Partner Phone Father Name Model Set Artist Status 05/22/20 17 1 CLOSED Fetus Data First Name Last Name Admitted to NICU Weight (g) Sex Living Outcome Pediatric Complications Fetus ID Race Codes Race Delivery Type F Full Term 50341 Geoffrey Calculation Initial Geoffrey Date Initial Exam [...]
--- OUTSIDE RECORDS SUMMARY | 2025-02-05 13:12 | XMS_ITS | Clinical Summary ---
Author Organization [facility] Address [address] [place] [address] Care Team Providers Care Insurance Follow Up Specialist Name Role Phone Anupama Cuba MD Primary [...] daily 04/18/20 22 Active adalimumab (Humira,CF, Pen Codh-Wa-Szjn HS) 80 mg/0.8 mL-40 mg/0.4 mL pen [...] total) by mouth daily 30 tablet 01/02/20 Active Active Problems Problem Noted Date Diagnosed Date Primary hypertension 06/24/2024 Mixed hyperlipidemia 06/24/2024 Memory loss 04/23/2023 History of ventricular tachycardia 09/07/2022 Coronary artery disease invo lving [place] coronary artery of [place] heart without angina pectoris 09/07/2022 History of cardiac arrest 09/07/2022 Surgical History Surgery Date Site/Laterality Comments APPENDECTOMY [...] on file Legal Sex Female 7:28 PM COMPLIANCE REVIEWER Gender Identity Not on file Sexual Orientation Not on file Obstetrics History Last Filed Vital Signs Vital Sign Reading Time Taken Comments Blood Pressure 146/82 06/24/2024 8:01 AM COMPLIANCE REVIEWER Pulse 61 06/24/2024 8:01 AM COMPLIANCE REVIEWER Temperature 36.9 C (98.4 F) 11/01/2023 7:40 AM CDT Respiratory Rate 16 11/01/2023 9:28 AM CDT Oxygen Saturation 99% 06/24/2024 8:01 AM COMPLIANCE REVIEWER Inhaled Oxygen Concentration - - Weight 99.8 kg (220 lb) 06/24/2024 8:01 AM COMPLIANCE REVIEWER Height 162.6 cm (5' 4) 06/24/2024 8:01 AM COMPLIANCE REVIEWER Body Mass Index 37.76 06/24/2024 8:01 AM COMPLIANCE REVIEWER Plan of Treatment Health Maintenance Due Date Last Done Comments Cervical Cancer Screening 1965 Colon Cancer Screening-Colonoscopy 1965 Depression Screening 1965 DTaP/Tdap/Td Vaccine (1 - Tdap) 1976 Regular Well Visit/Exam 18-64 1983 Zoster Vaccine (1 of 2) 2015 Breast Cancer Screening-Mammogram 02/08/2023 02/08/2022, 02/08/2022, 06/14/2017 Covid-19 Vaccine (3 - 2023-2 5 season) 2024 10/28/2020, 10/07/2020 Influenza Vaccine (#1) 2025 9, 05/17/2017, 10/08/2014 Hepatitis B Screening Completed 10/31/2016 Hepatitis C Screening Completed 05/12/2019 , 04/30/2019 Pneumococcal vaccine <65 Aged Out No longer eligible based on patient's age to complete this topic Insurance TNA MEDICARE GOLD IDPA AETNA MEDICARE GOLD [address] [place] [id number] IDPA UHC MEDICARE ADVANTAGE Advance Directives For more information, please contact: [phone] * Full Code (Latest Code Status on File) Date Activated Date Inactivated Comments 11/01/2023 8:52 AM 11/02/2023 4:37 AM * Full Code Date Activated Date Inactivated Comments 05/29/2023 10:01 AM 05/30/2023 4:39 AM Care Teams Insurance Follow Up Specialist Relationship Specialty Start Date End Date Anupama Cuba MD [address] [place] [address] PCP - General Family Medicine 09/27/22
--- OUTSIDE RECORDS SUMMARY | 2025-02-05 13:12 | XMS_ITS | Encounter Summary ---
Author Organization [facility] Address [facility] [place] [address] Care Team Providers Care Layer Out Name Role Phone Enrique Gandhi MD Primary Care Provider [phone] Anupama Cuba DO Primary Care Provider [phone]- [phone] Janet You PA-C Primary Care Provider [phone] Reason for Visit * Reason Onset Date Comments MEDICATION REFILL 01/06/2018 Encounter Details Date Type Department Care Team (Late st Contact Info) Description 01/06/2018 Refill [facility] [address] [place] [address] Mary Jo Dukes MD [address] [place] [address] MEDICATION REFILL Social History Tobacco Use Types Packs/Day Years Used Date Smoking Tobacco: Never Assessed Comments Unknown Sex and Gender Information Value Date Recorded Sex Assigned at Not on file Legal Sex Female 11: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 Gender Identity Not on file Sexual Orientation Not on file documented as of this encounter Plan of Treatment Not on file documented as of this encounter Visit Diagnoses Not on filedocumented in this encounter Care Teams Layer Out Relationship Specialty Start Date End Date Enrique Gandhi MD [address] [facility] [address] [place] [address] PCP - General Family Medicine 06/20/16 11/02/20 Anupama Cuba DO [address] [facility] [address] [place] [address] PCP - General 11/03/20 07/10/22 Janet You, PA-C [address] [place] [address] PCP - General 07/11/22 documented as of this encounter
--- OUTSIDE RECORDS SUMMARY | 2025-02-05 13:12 | XMS_ITS | Data Portability ---
Author Organization [facility], [address] [facility] Address [address] [place] [address] Care Team Providers Care Merchandise Appraiser Name Role Phone ANUPAMA CUBA Primary Care Provider Assessment No assessment recorded. Plan of Treatment Reminders Order Date Submit Date Provider Last Modified By Organization Details Last Modified Time Details Appointments Establish ed Patient 10.EST 2025 08:30A M Dr. Yandy Garcia Not available Not available Not available Lab TB (M tuberculo sis), IFN-gamma +mitogen- gamma, blood 2024 025 [id number] [facility], [address] [place] [address], [id number], 02/01/2025 11:07:16 CBC 2024 025 [id number] [facility], [address] [place] [address], [id number], 02/03/2025 09:53:04 CMP, serum or plasma 2024 025 [facility], [address] [place] [address], [id number], 02/03/2025 09:53:04 Referral None recorded. Procedures None recorded. Surgeries None recorded. Imaging None recorded. Medication Orders clobetaso l 0.05 % scalp solution 2023 024 [id number] [id number], [address] [place], [address], 01/28/2024 12:09:45 calcipotr iene 0.005 % topical ointment 2023 024 [email or web address] [id number], [address] [place], [address], 01/28/2024 12:09:45 Patient TargetsNo targets recorded. Patient Instructions Encounter Date Encounter Id Patient Instructions Last Modified By Organization Details Last Modified Time 01/27/2025 [id number] I asked patient to return in 6 months. [email or web address] Not available 01/27/2025 12:55:38 Reason for Referral None Reported. Results Created Date Observation Date Name Description Value Unit Range Abnormal Flag Note LastModifiedBy Organization Detail LastModifiedTime 01/28/2001/28/2025 CBC CBC Not Available [facility] [address] [place] [address], [id number], 01/28/2025 16:17:41 01/28/2001/28/2025 CBC WBC 5.9 K/uL 3.8-11 .2 Not Available [facility] [address] [place] [address], [address], 01/28/2025 16:17:41 01/28/2001/28/2025 CBC RBC 3.96 M/uL 3.92-5 .10 Not Available [facility] [address] [place] [address], [id number], 01/28/2025 16:17:41 01/28/2001/28/2025 CBC HGB 11.7 g/dL 11.8-1 5.3 low Not Available [facility] [address] [place] [address], [id number], 01/28/2025 16:17:41 01/28/2001/28/2025 CBC HCT 35.3 % 36.5-4 4.8 low Not Available [facility] [address] [place] [address], [address], 01/28/2025 16:17:41 01/28/20 25 01/28/2025 CBC MCV 89.1 fL 80.0-9 9.0 Not Available [facility] [address] [place] [address], [address], 01/28/2025 16:17:41 01/28/20 25 01/28/2025 CBC MCH 29.5 pg 25.5-3 3.6 Not Available [facility] [address] [place] [address], [address], 01/28/2025 16:17:41 01/28/20 25 01/28/2025 CBC MCHC 33.1 g/dL 32.0-3 6.0 Not Available [facility] [address] [place] [address], [address], 01/28/2025 16:17:41 01/28/20 25 01/28/2025 CBC RDW-SD 43.6 fL 35.1 - 46.3 Not Available [facility] [address] [place] [address], [address], 01/28/2025 16:17:41 01/28/2001/28/2025 CBC plt 233 K/uL 130-40 0 Not Available [facility] [address] [place] [address], [address], 01/28/2025 16:17:41 01/28/2001/28/2025 CBC MPV 10.5 fL 9.3-12 .8 Not Available [facility] [address] [place] [address], [address], 01/28/2025 16:17:41 01/28/2001/28/2025 CMP, serum or plasm a comp. met. panel Not Available [facility] [address] [place] [address], [address], 01/28/2025 16:34:45 01/28/2001/28/2025 CMP, serum or plasm a sodium 139 mmol/ L 136-14 6 Not Available [facility] [address] [place] [address], [address], 01/28/2025 16:34:45 01/28/20 25 01/28/2025 CMP, serum or plasm a potassium 4.4 mmol/ L 3.5-5. 1 Not Available [facility] [address] [place] [address], [address], 01/28/2025 16:34:45 01/28/20 25 01/28/2025 CMP, serum or plasm a chloride 102 mmol/ L 98-110 Not Available [facility] [address] [place] [address], [address], 01/28/2025 16:34:45 01/28/20 25 01/28/2025 CMP, serum or plasm a CO2 27 mEq/L 20-32 Not Available [facility] [address] [place] [address], 58[address], 01/28/2025 16:34:45 01/28/20 25 01/28/2025 CMP, serum or plasm a anion gap 14 mmol/ L 10-22 Not Available [facility] [address] [place] [address], [address], 01/28/2025 16:34:45 01/28/20 25 01/28/2025 CMP, serum or plasm a glucose 71 mg/dL 70-100 Not Available [facility] [address] [place] [address], [address], 01/28/2025 16:34:45 01/28/2001/28/2025 CMP, serum or plasm a calcium 9.6 mg/dL 8.4-10 .4 Not Available [facility] [address] [place] [address], [address], 01/28/2025 16:34:45 01/28/20 25 01/28/2025 CMP, serum or plasm a total protein 7.1 g/dL 6.4-8. 3 Not Available [facility] [address] [place] [address], [address], 01/28/2025 16:34:45 01/28/20 25 01/28/2025 CMP, serum or plasm a albumin 4.5 g/dL 3.5-5. 3 Not Available [facility] [address] [place] [address], [address], 01/28/2025 16:34:45 01/28/20 25 01/28/2025 CMP, serum or plasm a ALP 120 U/L 44 - 127 Not Available [facility] [address] [place] [address], [address], 01/28/2025 16:34:45 01/28/20 25 01/28/2025 CMP, serum or plasm a AST (SGOT) 27 U/L 10-40 Not Available [facility] [address] [place] [address], [address], 01/28/2025 16:34:45 01/28/20 25 01/28/2025 CMP, serum or plasm a total bilirubin 0.2 mg/dL 0.2-1. 2 Not Available [facility] [address] [place] [address], [address], 01/28/2025 16:34:45 01/28/20 25 01/28/2025 CMP, serum or plasm a ALT (SGPT) 16 U/L 8-35 Not Available [facility] [address] [place] [address], [id number], 01/28/2025 16:34:45 01/28/20 25 01/28/2025 CMP, serum or plasm a BUN 15 mg/dL 7-21 Not Available [facility] [address] [place] [address], [address], 01/28/2025 16:34:45 01/28/20 25 01/28/2025 CMP, serum or plasm a creatinine 1.3 mg/dL 0.7-1. 3 Not Available [facility] [address], [address], 01/28/2025 16:34:45 01/28/20 25 01/28/2025 CMP, serum or plasm a CKD-epi GFR 47 low eGFR was calcu lated using the 2020 CKD-E PI equat ion. (Professional Employer Consultant rohan Kidne y Disea se has an eGFR less than 60 mL/mi n/1.7 3mm for a perio d of three month s or more. ) This calcu latio n has not been valid ated for patie nt ages <18 or >90 years old. Not Available [facility] [address], [address], 01/28/2025 16:34:45 Result Notes None recorded. Problems Name Problem SNOMED Code Status Onset Date Resolution Date Notes Provider Name and Address Organization Details Recorded Time Psoriasis 5836206 Active 2023 Malika Baron [facility] 4 11:29:49 Lipoma of back 156718959 Active 2024 [facility] 5 12:50:49 Seborrheic keratosis 416608254 [facility] 2024 [facility] 5 12:51:13 Lentiginosis 426991284 Active 2024 [facility] 5 12:51:21 Multiple benign melanocytic nevi 568447026 Active 2024 [facility] 5 12:51:25 Psoriasis vulgaris 323404890 Active 2024 [facility] 5 12:51:34 Notes:Some problems listed i n Documents: #[id number], #[id number], #[id number] could not be added to this patient's chart. Please review these documents and add these problems to the patient's chart manually as needed. Problem Notes None recorded. Medical Equipment None Reported. Allergies Allergen ID Allergen Name Allergen Category Reaction Reaction Severity Criticality Documentation Date Start Date Code Code System Note Provider Name and Address Organization Details Recorded Time 1458919 fluocinon estevan medicatio n rash Not available Not available 08/14/20232021 4462 RxNorm React ion: Blist ers; Not Available [facility] 4 04:37:28 0437302 methotrex ate medicatio n Not available Not available Not available 08/14/20232021 6851 RxNorm React ion: Blist ers; Nause a; Myalg ia; Not Available [facility] 4 04:37:28 411099 Product containin g penicilli n (product) medicatio n Not available Not available Not available 08/12/20232005 99779 8001 SNOMED Not Available [facility] 23:32:40 Medications Name Sig Start Date Stop Date Status Note LastModified by Organization Details LastModified Time cyclobenzap rine 10 mg tablet TAKE 1 (ONE) TABLET DAILY NEEDED active Not Available Not Available No t Available dicloxacill in 500 mg capsule 1 (ONE) CAPSULE BY MOUTH EVERY SIX HOURS 01/27 completed Not Available Not Available Not Available fluconazole 100 mg tablet TAKE 1 TABLET DAILY FOR 14 DAYS 01/27 completed Not Available Not Available Not Available atorvastati n 40 mg tablet TAKE 1 TABLET BY MOUTH EVERYDAY AT BEDTIME active Not Available Not Available No t Available levothyroxi ne 175 mcg tablet 01/27 completed Not Available Not Available Not Available pilocarpine 5 mg tablet TAKE 1 TABLET BY MOUTH THREE TIMES A DAY NEEDED active Not Available Not Available No t Available nystatin 100,000 unit/mL oral suspension SWISH AND SWALLOW 5 MILLILITE R BY MOUTH FOUR TIMES DAILY active Not Available Not Available No t Available carvedilol 6.25 mg tablet active Not Available Not Available Not Available doxycycline hyclate 100 mg capsule TAKE 1 CAPSULE BY MOUTH TWICE A DAY 01/27 completed Not Available Not Available Not Available carvedilol 12.5 mg tablet TAKE 1 TABLET BY MOUTH TWICE A DAY active Not Available Not Available No t Available fluconazole 150 mg tablet 150 MG ORALLY ONCE NEEDED FOR YEAST INFECTION FOR 1 DAY A SINGLE DOSE 01/27 completed Not Available Not Available Not Available levetiracet am 500 mg tablet 01/27 completed Not Available Not Available Not Available lisinopril 20 mg tablet TAKE 1 TABLET BY MOUTH EVERY DAY 01/27 completed Not Available Not Available Not Available clonidine HCl 0.2 mg tablet TAKE 1 TABLET BY MOUTH EVERYDAY AT BEDTIME active Not Available Not Available No t Available lorazepam 2 mg tablet TAKE ONE TABLET ONE HOUR BEFORE MRI. 01/27 completed Not Available Not Available Not Available cephalexin 500 mg capsule TAKE 1 CAPSULE TWICE DAILY FOR 7 DAYS 01/24 completed Not Available Not Available Not Available buspirone 30 mg tablet TAKE 1 TABLET BY MOUTH TWICE A DAY active Not Available Not Available No t Available cevimeline 30 mg capsule 01/27 completed Not Available Not Available Not Available lisinopril 10 mg tablet TAKE 1 TABLET BY MOUTH EVERY DAY 01/27 completed Not Available Not Available Not Available omeprazole 20 mg capsule,del ayed release TAKE 1 CAPSULE BY MOUTH EVERY DAY active Not Available Not Available No t Available levothyroxi ne 200 mcg tablet TAKE 1 TABLET BY MOUTH EVERY DAY IN THE MORNING active Not Available Not Available No t Available furosemide 20 mg tablet TAKE 1 TABLET BY MOUTH DAILY IN AM NEEDED active Not Available Not Available No t Available ergocalcife rol (vitamin D2) 1,250 mcg (50,000 unit) capsule TAKE 1 CAPSULE BY MOUTH WEEKLY active Not Available Not Available No t Available albuterol sulfate HFA 90 mcg/actuati on aerosol inhaler INHALE 2 PUFFS EVERY 4 HOURS NEEDED active Not Available Not Available No t Available clobetasol 0.05 % scalp solution PLEASE SEE ATTACHED FOR DETAILED DIRECTION S active Not Available Not Available No t Available lisinopril 40 mg tablet TAKE 1 TABLET BY MOUTH EVERY DAY active Not Available Not Available No t Available ondansetron 4 mg disintegrat ing tablet TAKE 1 TABLET BY MOUTH EVERY 8 HOURS NEEDED FOR NAUSEA AND VOMITING active Not Available Not Available No t Available calcipotrie ne 0.005 % topical ointment APPLY A THIN LAYER TO THE AFFECTED AREA(S) BY TOPICAL ROUTE ONCE DAILY NEEDED FOR FLARES active Not Available Not Available No t Available Klor-Con M20 mEq tablet,exte nded release TAKE 1 TABLET BY MOUTH EVERY DAY active Not Available Not Available No t Available nitrofurant oin monohydrate /macrocryst als 100 mg capsule TAKE 1 CAPSULE BY MOUTH EVERY 12 HOURS WITH FOOD FOR 5 DAYS 01/24 completed Not Available Not Available Not Available duloxetine 30 mg capsule,del ayed release TAKE 1 CAPSULE BY MOUTH EVERY DAY WITH 60 MG FOR TOTAL 90 MG active Not Available Not Available No t Available duloxetine 60 mg capsule,del ayed release TAKE 1 CAPSULE BY MOUTH EVERY DAY WITH 30 MG FOR TOTAL DOSE OF 90 MG active Not Available Not Available No t Available Myrbetriq 50 mg tablet,exte nded release active Not Available Not Available Not Available naloxone 4 mg/actuatio n nasal spray PLEASE SEE ATTACHED FOR DETAILED DIRECTION S active Not Available Not Available No t Available Humira(CF) Pen 40 mg/0.4 mL subcutaneou s kit INJECT 1 PEN UNDER THE SKIN EVERY 14 DAYS 2023 active Not Available Not Available Not Avai lable Lagevrio 200 mg capsule (EUA) TAKE 4 CAPSULES BY MOUTH EVERY 12 HOURS FOR 5 DAYS 01/27 completed Not Available Not Available Not Available Vitals None Recorded Social History None recorded. Functional Status None recorded. Mental Status None recorded. Family History Nothing Reported. Medical History No medical history recorded. Gynecological HistoryNo gynecological history recorded. Obstetrics History GPAL:G 0 P 0 0 0 0 Past Encounters Encounter ID Performer Location Encounter Start Date Encounter Closed Date Diagnosis/Indication Diagnosis SNOMED-CT Code Diagnosis ICD10 Code Diagnosis Note [id number] YANDY GARCIA MD [facility] ([place]) [address] [place] [address] 01/28/2024 11:20:03 01/28/2024 11:44:29 Psoriasis 3933137 L40.9 Chronic plaque psoriasis, controlled with humira [...] burak 0.05% cream The patient is currently well controlled on Humira therapy. The dose will remain unchanged. I encouraged her to hold injections if she has any signs or symptoms of an [...] use continuous ly to minimize these effects. [id number] YANDY GARCIA MD [facility] ([place]) [address] [place] [address] 01/27/2025 12:16:22 01/27/2025 13:41:48 Lipoma of back 908929242 D17.1 Lipoma - Discussed benign etiology- She will call if becomes bothersome and would like a plastic surgeon referral Seborrheic keratosis 394 646188 L82.1 Seborrheic keratoses, numerous - Discussed benign etiology. Reassuranc e provided. No treatment required. Lentiginosis 478832093 L 81.4 Lentigines (Sun damaged skin) - The benign nature of these spots was reviewed with the patient, but that they do indicate a history of sun-damage . We discussed that they should be watched for change, and are related to chronic sun exposure.- We discussed the importance of UV protection and its role in the aid of prevention of sun damage and skin cancers. Advised the patient on daily sunscreen use, use of wide brimmed hats, and other protective measures. Multiple b enign melanocytic nevi 028573751 D22.9 Multiple melanocyti c nevi of trunk and extremitie s - The patient was reassured of benign exam today. We discussed the need to call if there are any concerning changes in the color, size, shape, or symptoms of the lesions, or if certain lesions begin to stand out as being different from the rest ( ugly duckling sign ). Psoriasis vulgaris 5007 L40.0 Chronic plaque psoriasis, flaring on Humira (BSA ~4%). Also with new CHF diagnosis, contraindi cated in Humira The patient was counseled that psoriasis is [...] physician for routine monitoring for these. Plan:- Will submit for Skyrizi through insurance- Update TB test, CMP, and CBC today Risankizum ab (Skyrizi) is an [place]-23 antagonist approved for treatment of psoriasis. Risks, benefits, and alternativ es to risankizum ab were discussed, including its immunomodu latory effect, and the possible increased risk of serious or fatal infection or malignancy . There has been a questionab le increase in risk of cardiac events. This is a relatively new medication , and alf effects are uncertain. Side effects: There is a potential for increased risk of infection, and the effect on risk of malignancy is not certain. The most common adverse reactions (= 1%) are upper respirator y infections , headache, fatigue, injection site reactions, and tinea infections . Health Concerns Section Related Observation LastModified by Organization Detai ls LastModified Time None Recorded Concern Status LastModified by Organization Details LastModified Time None Recorded Advance Directives Directive None Recorded Payers Insurance Date Sequence Insurance Name Policy Number Policy Hatch Covered Member ID Hatch Member ID Guarantor Name 01/27/2025 3 [place] Roslyn S Char [id number] Roslyn S Shiloendoszoya 01/27/2025 2 [place] Roslyn S Char [id number] Roslyn S Shiloendoszoya 01/27/2025 1 [employer] [id number] Roslyn S Char [id number] Roslyn S Shiloendoszoya 01/27/2025 1 [employer] (MEDICARE REPLACEMENT/ ADVANTAGE - PPO) [id number] Roslyn Valenciazoya [id number] Roslyn Valenciazoya 01/27/2025 1 [facility] (MEDICARE REPLACEMENT/ ADVANTAGE - PPO) [id number] Roslyn Sanz Shilosukhjinderzoya [id number] Roslyn Valenciazoya Notes Date Note Type Note Provider Name and Address Organization Details Recorded Time 01/28/2024 text/html ROS as noted in the HPI Roslyn is here for recheck of psoriasis. Patient has been injecting humira 40mg/0.4mL every 2 weeks since last visit. She feels it is well controlled. She uses clobetasol solution and calcipotriene ointment prn.Last TB, CBC, and CMP in system was 12/13/22. YANDY GARCIA MD [address] [place] [address], [phone], [facility] 01/28/2024 12:05:06 01/27/2025 text/html ROS as noted in the HPI Roslyn is here for follow up. They have no history of skin cancer. They are here today for a total body skin exam. She is concerned about spots on her back that are growing and painful. Additionally, she is here today for a follow up of psoriasis and to discuss biologic switch due to a new diagnosis of CHFThey have been on Humira since 09/2022. Most recent labs noted on 02/29/24.They feel as though they are having frequent flares.She is using clobetasol solution and calcipotriene YANDY GARCIA MD [address] [place] [address], [phone], [facility] 01/27/2025 13:57:03 OBGyn Episode No OBEpisode recorded.
[2025-02-05 14:06] LABS: Total Protein Urine Random 20 mg/dL; Ur Ttl Prot Creatinine Ratio 0.29 mg/mg (0-0.20)
[2025-02-05 14:09] LABS: Add Urine Microscopic? YES; Appearance Urine Sl Cloudy (Clear); Glucose Urine UA Negative (Negative); Leukocyte Esterase Ur 3+ LEU/UL (Negative); Nitrate Urine Negative (Negative); Specific Grav Ur 1.015 (1.010-1.020)
[2025-02-05 15:06] LABS: Albumin Level 4.1 g/dL (3.5-5.1); Anion Gap 6 mmol/L (4-12); Blood Urea Nitrogen 13 mg/dL (7-17); Calcium 9.2 mg/dL (8.4-10.2); Carbon Dioxide 28 mmol/L (22-30); Chloride 103 mmol/L (98-107); Estimated Glomerular Filt Rate 42; Glucose 86 mg/dL (65-110); Osmolality Calculated 283 mOsm/kg (285-295); Potassium 4.8 mmol/L (3.4-5.0); Sodium 137 mmol/L (137-145)
== END 2025-02-05 13:02 | disposition home or self-care (01) ==
PROVIDERS: Internal Medicine Nephrology; PCP Physician Assistant; Visit Provider Nurse Practitioner Family
DX: E55.9 Vitamin D deficiency, unspecified (principal); N25.81 Secondary hyperparathyroidism of renal origin; N18.32 Chronic kidney disease, stage 3b; I12.9 Hypertensive chronic kidney disease with stage 1 through stage 4 chronic kidney disease, or unspecified chronic kidney disease; N39.0 Urinary tract infection, site not specified; L40.0 Psoriasis vulgaris; R82.90 Unspecified abnormal findings in urine
CPT/HCPCS: 36415; 80069; 81001; 82306; 82570; 83970; 84156; 86480; 87086

== ENCOUNTER 2025-06-03 14:29 | Outpatient (CLI) | payer MEDICARE, MEDICAID, SELFPAY ==
--- NOTE | ~2025-06-03 | CT_ITS ---
EXAMINATION:CT lung screening DATE: 06/03/2025 14:49 INDICATION: Smoking history. TECHNIQUE: Computed tomography (CT) of the chest was performed without intravenous contrast. Automated exposure control and iterative reconstruction technique were employed. The dose-length product (DLP) was 145.27 mGy-cm. COMPARISON: Lung cancer screening examination dated 05/12/2024. FINDINGS: Mild emphysematous lungs. Stable calcified granulomatous lymph nodes of the right hilum and mediastinum and right lower lobe. No evidence of solid noncalcified nodules are seen. No evidence of effusion. IMPRESSION: 1. Stable benign findings including benign calcified granulomatous lesions. Follow-up in 12 months. Lung RADS category 2 Reviewed, dictated and finalized at location T. ICAL DATA COORDINATOR IMPRESSION: 1. Stable benign findings including benign calcified granulomatous lesions. Fol low-up in 12 months. Lung RADS category 2
--- NOTE | ~2025-06-03 | XR_ITS ---
XR lumbar spine 2-3V Indication: DEGENERATION OF INTERVERTEBRAL DISC LUMBAR REGION Comparison: None Findings: Grade 1 anterolisthesis of L4 on L5, no fracture Severe loss of disc at L4-5 and L5-S1. Soft tissues unremarkable Impression: No acute abnormality. Reviewed, dictated and finalized at location P. ERTY UNDERWRITER Impression: No acute abnormality.
[2025-06-03 15:46] LABS: Hemoglobin A1C 5.6 % (<5.7)
[2025-06-03 15:52] LABS: Alanine Aminotransferase 12 U/L (6-35); Albumin Level 4.3 g/dL (3.5-5.1); Alkaline Phosphatase 97 U/L (38-126); Anion Gap 9 mmol/L (4-12); Aspartate Amino Transferase 21 U/L (14-36); Bilirubin,Total 0.3 mg/dL (0.2-1.3); Blood Urea Nitrogen 17 mg/dL (7-17); Calcium 9.1 mg/dL (8.4-10.2); Carbon Dioxide 30 mmol/L (22-30); Chloride 102 mmol/L (98-107); Cholesterol 182 mg/dL (0-200); Estimated Glomerular Filt Rate 37; Glucose 80 mg/dL (65-110); HDL Direct 64 mg/dL; Osmolality Calculated 292 mOsm/kg (285-295); Potassium 4.3 mmol/L (3.4-5.0); Sodium 141 mmol/L (137-145); Total Protein 7.0 g/dL (6.3-8.2); Triglycerides 120 mg/dL (<150)
[2025-06-03 16:09] LABS: Free T4 Free Thyroxine 1.05 ng/dL (0.78-2.19)
[2025-06-03 16:23] LABS: Thyroid Stimulating Hormone 4.230 uIU/mL (0.465-4.680)
--- OUTSIDE RECORDS SUMMARY | 2025-06-03 17:35 | XMS_ITS | Clinical Summary ---
Author Organization [facility] Medical Office Building B Address [address] [place] [address] Care Team Providers Care Sample Washer Name Role Phone Anupama Cuba MD Primary [...] 0.4 mg sublingual tablet Active fluticasone furoate-vilant Arno (BREO ELLIPTA) 100-25 mcg/dose diskus inhaler Breo [...] daily 04/18/20 22 Active adalimumab (Humira,CF, Pen Tsqk-Tl-Ijvx HS) 80 mg/0.8 mL-40 mg/0.4 mL pen [...] tachycardia 09/07/2022 Coronary artery disease invo lving koi coronary artery of koi heart without angina pectoris 09/07/2022 History of cardiac arrest 09/07/2022 Surgical History Surgery Date Site/Laterality Comments APPENDECTOMY FL FLUORO GUIDED LUMBAR PUNCTURE 05/29/2023 Right FL FLUORO GUIDED LUMBAR PUNCTURE 11/01/2023 Right Medical History Medical History Date Comments Hypertension Poor circulation Hypercholesteremia Diabetes mellitus Asthma Thyroid disease Peptic ulceration Gastric reflux [...] on file Legal Sex Female 7:28 PM BRUSHER HAND Gender Identity Not on file Sexual Orientation Not on file Last Filed Vital Signs Vital Sign Reading Time Taken Comments Blood Pressure 146/82 06/24/2024 8:01 AM BRUSHER HAND Pulse 61 06/24/2024 8:01 AM BRUSHER HAND Temperature 36.9 C (98.4 F) 11/01/2023 7:40 AM CDT Respiratory Rate 16 11/01/2023 9:28 AM CDT Oxygen Saturation 99% 06/24/2024 8:01 AM BRUSHER HAND Inhaled Oxygen Concentration - - Weight 99.8 kg (220 lb) 06/24/2024 8:01 AM BRUSHER HAND Height 162.6 cm (5' 4) 06/24/2024 8:01 AM BRUSHER HAND Body Mass Index 37.76 06/24/2024 8:01 AM BRUSHER HAND Plan of Treatment Health Maintenance Due Date Last Done Comments Cervical Cancer Screening 1965 Colon Cancer Screening-Colonoscopy 1965 Depression Screening 1965 DTaP/Tdap/Td Vaccine (1 - Tdap) 1976 Regular Well Visit/Exam 18-64 1983 Zoster Vaccine (1 of 2) 2015 Breast Cancer Screening-Mammogram 02/08/2023 02/08/2022, 02/08/2022, 06/14/2017 Covid-19 Vaccine (3 - 2024-2 6 season) 2025 10/28/2020, 10/07/2020 Influenza Vaccine (#1) 2025 9, 05/17/2017, 10/08/2014 Hepatitis B Screening Completed 10/31/2016 Hepatitis C Screening Completed 05/12/2019 , 04/30/2019 Pneumococcal vaccine <65 Aged Out No longer eligible based on patient's age to complete this topic Insurance AETNA MEDICARE [facility] MEDICARE Address: [address] [place] [address] IDPA AETNA MEDICARE GOLD IDPA [facility] MEDICARE ADVANTAGE Advance Directives For more information, please contact: [phone] * Full Code (Latest Code Status on File) Date Activated Date Inactivated Comments 11/01/2023 8:52 AM 11/02/2023 4:37 AM * Full Code Date Activated Date Inactivated Comments 05/29/2023 10:01 AM 05/30/2023 4:39 AM Care Teams Sample Washer Relationship Specialty Start Date End Date Anupama Cuba MD [address] [place] [address] PCP - General Family Medicine 09/27/22
--- OUTSIDE RECORDS SUMMARY | 2025-06-03 17:35 | XMS_ITS | Encounter Summary ---
Author Organization [facility] Address [facility] [facility] [place] [address] Care Team Providers Care Plastic Parts Designer Name Role Phone Enrique Gandhi MD Primary Care Provider [phone] Anupama Cuba DO Primary Care Provider [phone]- [phone] Janet You PA-C Primary Care Provider [phone] Reason for Visit * Reason Onset Date Comments MEDICATION REFILL 02/12/2018 Encounter Details Date Type Department Care Team (Late st Contact Info) Description 02/12/2018 Refill [facility] [address] [place] [address] Mary Jo Dukes MD [address] [address] MEDICATION REFILL Social History Tobacco Use Types Packs/Day Years Used Date Smoking Tobacco: Never Assessed Comments Unknown Sex and Gender Information Value Date Recorded Sex Assigned at Not on file 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 Gender Identity Not on file Sexual Orientation Not on file documented as of this encounter Plan of Treatment Not on file documented as of this encounter Visit Diagnoses Not on filedocumented in this encounter Care Teams Plastic Parts Designer Relationship Specialty Start Date End Date Enrique Gandhi MD [address] [facility] [address] [place] [address] PCP - General Family Medicine 06/20/16 11/02/20 Anupama Cuba DO [address] [facility] [address] [place] [address] PCP - General 11/03/20 07/10/22 Janet You, PA-C [address] [place] [address] PCP - General 07/11/22 documented as of this encounter
--- OUTSIDE RECORDS SUMMARY | 2025-06-03 17:35 | XMS_ITS | Encounter Summary ---
Author Organization [facility] Address [address] [place], [place] [address] [place] [address] Care Team Providers Care Litharge Mill Operator Name Role Phone Enrique Gandhi MD Primary Care Provider [phone] Anupama Cuba DO Primary Care Provider [phone]- [phone] Janet You PA-C Primary Care Provider [phone] Reason for Visit * Reason Onset Date Comments MEDICATION REFILL 07/28/2018 Encounter Details Date Type Department Care Team (Late st Contact Info) Description 07/28/2018 Refill [facility] [address] [place] [address] Mary Jo Dukes MD [address] [place] [address] MEDICATION REFILL Social History Tobacco Use Types Packs/Day Years Used Date Smoking Tobacco: Never Assessed Comments Unknown Sex and Gender Information Value Date Recorded Sex Assigned at Not on file 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 Sex 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 Gender Identity Not on file Sexual Orientation Not on file documented as of this encounter Plan of Treatment Not on file documented as of this encounter Visit Diagnoses Not on filedocumented in this encounter Care Teams Litharge Mill Operator Relationship Specialty Start Date End Date Enrique Gandhi MD [address] [facility] [address] [place] [address] PCP - General Family Medicine 06/20/16 11/02/20 Anupama Cuba DO [address] [facility] [address] [place] [address] PCP - General 11/03/20 07/10/22 Janet You, PA-C [address] [place] [address] PCP - General 07/11/22 documented as of this encounter
--- OUTSIDE RECORDS SUMMARY | 2025-06-03 17:35 | XMS_ITS | Clinical Summary ---
Author Organization [facility] Address [address] [facility] [place] [address] Care Team Providers Care Oncologist Name Role Phone aJnet You PA-C Primary Care Provider [phone] Source Comments [facility],non-owned Affiliates and Associated Physician Practices is amultiple site organization consisting of ambulatory clinics and hospital sitesin [place], [place], [place] and [place]. This disclosure is being madepursuant to the Care Everywhere program and may not contain all information available regarding this patient. 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 Gender Identity Not on file Sexual Orientation [...] 1980 DTAP/TDAP/TD VACCINES (1 - Tdap) 1984 PNEUMOCOCCAL VACCINE 50+ (1 of 2 - PCV) 1984 Cervical Cancer Screening 1986 PAP SMEAR 1986 PAP with HPV 1995 Respiratory Syncytial Virus (RSV) Vaccine Pt: or over 60 yrs (1 - Risk 50-74 years 1-dose series) 2015 ZOSTER VACCINE (1 of 2) 2015 SCREENING FOR DIABETES 05/09/2024 , 02/07/2021, 12/09/2020, Additional history exists DEPRESSION SCREENING 07/15/2024 COVID-19 VACCINE (3 - 2024- season) 2025 10/28/2020, 10/07/2020 INFLUENZA VACCINE (#1) 2025 04/10/2019, 2016 HEPATITIS B VACCINE (1 of 3 - Risk 3-dose series) 2025 HEPATITIS C SCREENING Completed 05/05/2021 , 05/05/2021, [...] approximately 13% higher for people identified as -Moroccan. eGFR by MDRD 57(L) > OR = [...] 29 U/L [facility] Comment: Test Performed at: [facility] [address] [place] [address] TORSTEN BROWN DO,MPH Blood BLOOD SPECIMEN / Unknown 05/09/2021 8:47 AM CDT 05/09/2021 8:48 AM CDT us Regina Deluca LIVE HANGER-STUDENT DEVELOPMENT COORDINATOR LAB - CHEMISTRY LEIDY NELSON Final Result Performing Organization Address [facility] Co de Phone Number [facility] [phone] [place] [address] * HEPATITIS C RNA QUANTITATIVE (05/02/2021 8:49 [...] of this assay have been determined by [employer]. The modifications have not been cleared or approved by the FDA. This assay has been validated pursuant to the CLIA regulations and is used for clinical purposes. For more information on this test, go to: http://education.Clodico/faq/SYN57y4 (This link is being provided for informational/ educational purposes only.) REPORT COMMENT: CC DR Lynnette LE Test Performed at: [facility] [address] [place] [address] TORSTEN BROWN DO,MPH 05/02/2021 8:49 AM CDT 05/02/2021 8:49 AM CDT Regina Deluca LIVE HANGER-STUDENT DEVELOPMENT COORDINATOR LAB - CHEMISTRY LEIDY NELSON Final Result Performing Organization Address [facility] de Phone Number [facility] [address] [place] [address] from Last 3 Months or Most Recently Relevant to Health Maintenance Insurance AETNA MEDICAID - [place] MEDICARE MEDICAID - OUT OF STATE AETNA Care Teams Oncologist Relationship Specialty Start Date End Date Janet You, BRYANC [address] [place] [address] PCP - General 07/11/22
--- OUTSIDE RECORDS SUMMARY | 2025-06-03 17:35 | XMS_ITS | Encounter Summary ---
Author Organization [facility] Address [facility] [place] [address] Care Team Providers Care Fabric Worker Fitter Name Role Phone Enrique Gandhi MD Primary Care Provider [phone] Anupama Cuba DO Primary Care Provider [phone]- [phone] Janet You PA-C Primary Care Provider [phone] Reason for Visit * Reason Onset Date Comments MEDICATION REFILL 01/06/2018 Encounter Details Date Type Department Care Team (Late st Contact Info) Description 01/06/2018 Refill [facility] [address] [place] [address] Mary Jo Dukes MD [address] [address] MEDICATION REFILL Social History Tobacco Use Types Packs/Day Years Used Date Smoking Tobacco: Never Assessed Comments Unknown Sex and Gender Information Value Date Recorded Sex Assigned at Not on file 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 Gender Identity Not on file Sexual Orientation Not on file documented as of this encounter Plan of Treatment Not on file documented as of this encounter Visit Diagnoses Not on filedocumented in this encounter Care Teams Fabric Worker Fitter Relationship Specialty Start Date End Date Enrique Gandhi MD [address] [facility] [address] [place] [address] PCP - General Family Medicine 06/20/16 11/02/20 Anupama Cuba DO [address] [facility] [address] [place] [address] PCP - General 11/03/20 07/10/22 Janet You, PA-C [address] [place] [address] PCP - General 07/11/22 documented as of this encounter
== END 2025-06-03 14:30 | disposition home or self-care (01) ==
PROVIDERS: PCP Nurse Practitioner Family; Visit Provider Nurse Practitioner Family
DX: M51.369 Other intervertebral disc degeneration, lumbar region without mention of lumbar back pain or lower extremity pain (principal); R73.09 Other abnormal glucose; E03.9 Hypothyroidism, unspecified; E78.2 Mixed hyperlipidemia; I10 Essential (primary) hypertension
CPT/HCPCS: 36415; 71271; 72100; 80053; 80061; 83036; 84439; 84443

== ENCOUNTER 2025-07-14 10:43 | Outpatient (CLI) | payer MEDICARE, SELFPAY ==
--- OUTSIDE RECORDS SUMMARY | 2025-07-14 11:01 | XMS_ITS | Clinical Summary ---
Author Organization [facility] Office Building B Address [address] [place] [address] Care Team Providers Care Sumac Tanner Name Role Phone Anupama Cuba MD Primary [...] daily 04/18/20 22 Active adalimumab (Humira,CF, Pen Duyu-Rl-Jgsz HS) 80 mg/0.8 mL-40 mg/0.4 mL pen [...] tachycardia 09/07/2022 Coronary artery disease invo lving inaja coronary artery of inaja heart without angina pectoris 09/07/2022 History of [...] on file Legal Sex Female 7:28 PM CUSTOM LEATHER PRODUCTS MAKER Gender Identity Not on file Sexual Orientation Not on file Last Filed Vital Signs Vital Sign Reading Time Taken Comments Blood Pressure 146/82 06/24/2024 8:01 AM CUSTOM LEATHER PRODUCTS MAKER Pulse 61 06/24/2024 8:01 AM CUSTOM LEATHER PRODUCTS MAKER Temperature 36.9 C (98.4 F) 11/01/2023 7:40 AM CDT Respiratory Rate 16 11/01/2023 9:28 AM CDT Oxygen Saturation 99% 06/24/2024 8:01 AM CUSTOM LEATHER PRODUCTS MAKER Inhaled Oxygen Concentration - - Weight 99.8 kg (220 lb) 06/24/2024 8:01 AM CUSTOM LEATHER PRODUCTS MAKER Height 162.6 cm (5' 4) 06/24/2024 8:01 AM CUSTOM LEATHER PRODUCTS MAKER Body Mass Index 37.76 06/24/2024 8:01 AM CUSTOM LEATHER PRODUCTS MAKER Plan of Treatment Health Maintenance Due Date [...] complete this topic Insurance AETNA MEDICARE GOLD IDPA AETNA MEDICARE GOLD IDPA [facility] MEDICARE ADVANTAGE Advance Directives For more information, please contact: [phone] * Full Code (Latest Code Status on File) Date Activated Date Inactivated Comments 11/01/2023 8:52 AM 11/02/2023 4:37 AM * Full Code Date Activated Date Inactivated Comments 05/29/2023 10:01 AM 05/30/2023 4:39 AM Care Teams Sumac Tanner Relationship Specialty Start Date End Date Anupama Cuba MD [address] [facility] [place] [address] PCP - General Family Medicine 09/27/22
--- OUTSIDE RECORDS SUMMARY | 2025-07-14 11:01 | XMS_ITS | Clinical Summary ---
Author Organization [facility] Address [address] [place] [address] Care Team Providers Care Integration Lead Name Role Phone Anupama Cuba MD Primary Care Provider Unavailab Nemesio Irwin MD Unavailable Allergies Active Allergy Reactions Criticality [...] Treatment (MAT),PATIENT REPORTED THIS DOSE DAILY FROM [facility] Take 8 tablets (80 mg total) by mouth daily. Indications: Medication-Assist ed Treatment (MAT), PATIENT REPORTED THIS DOSE DAILY FROM [facility] Active aspirin 81 MG tabletIndicatio ns:Anticoagulan t [...] (two) times daily. Indications: High Blood Pressure 9 Active VENTOLIN HFA 108 (90 Base) MCG/ACT inhaler Inhale 2 puffs into the lungs every 4 (four) hours as needed for Wheezing. 0 Active cyclobenzaprine 10 MG tablet Take 1 tablet (10 mg total) by mouth nightly as needed for Muscle Spasms. 0 Active pilocarpine 5 MG tabletIndicatio ns:dry mouth Take 1 tablet (5 mg total) by mouth 3 (three) times daily as needed. Indications: dry mouth 1 Active omeprazole 20 MG capsuleIndicati ons:Reflux Esophagitis Take 1 capsule (20 mg total) by mouth daily. Indications: Lower Esophagus Inflammation From Backflow of Stomach Acid 1 Active DULoxetine 60 MG capsuleIndicati ons:Anxiety,Dep ression Take 1 capsule (60 mg total) by mouth daily. Indications: Depression, Feeling Anxious 1 Active probiotic capsuleIndicati ons:Nutritional Support Take 1 capsule by mouth daily with breakfast. Indications: Nutritional Support Active clobetasol 0.05 % external solutionIndicat ions:Psoriasis Apply topically 2 (two) times daily. Indications: Psoriasis 1 Active hydrOXYzine 25 MG tablet Take 1 tablet (25 mg total) by mouth 4 (four) times daily as needed for Itching or Anxiety. 1 Active calcipotriene 0.005 % ointmentIndicat ions:Psoriasis Apply topically as needed. Indications: Psoriasis 1 Active HUMIRA PEN-PSOR/UVEIT STARTER 80 MG/0.8ML & 40MG/0.4ML pen-injector kitIndications: Psoriasis Inject into the skin every 14 (fourteen) days. Indications: Psoriasis 2 Active furosemide (LASIX) 20 MG tabletIndicatio ns:Edema, unspecified type Take 1 tablet (20 mg total) by mouth daily. 30 tablet 11 2 Active Additional Information Patient taking differently: 40 [...] follow post procedure directions. 1 Package 3 4 Active Active Problems Problem Noted Date Diagnosed Date Engages in vaping 12/13/2022 Other insomnia 12/11/2021 Small airways disease 04/09/2021 Complex sleep apnea syndrome 04/09/2021 Shortness of breath 01/28/2021 Smoking 01/28/2021 Chronic venous insufficiency 09/27/2020 Anti-RADIOLOGY MANAGER antibodies present 11/30/2014 Psoriasis 09/20/2014 Myalgia and myositis 09/20/2014 Chronic hepatitis C virus infection 09/20/2014 Overview (02/13/2021): Hepatitis B core antibody [...] PM CDT Legal Sex Female 9:52 PM THORACIC MEDICINE SPECIALIST Gender Identity Female 01/28/2025 12:28 PM CDT [...] and Td Vaccines (1 - Tdap) 1984 Hepatitis A Vaccines (1 of 2 - Risk 2-dose series) 1984 Pneumococcal Vaccine: 50+ Years (1 of 2 - PCV) 1984 Cervical Cancer Screening Pap with HPV Testing (Age 30 to 64) Every 5 Years 1995 Cervical Cancer Screening with HPV 1995 Zoster Vaccines (1 of 2) 2015 Mammogram Screening 02/09/2024 02/08/2022 COVID-19 Vaccine (3 - season) 2025 10/28/2020, 10/07/2020 Influenza Adult (#1) 2025 04/10/2019, 05/17/20 17 RSV Immunization or 60+ Years (1 - Risk 60-74 years 1-dose series) 2025 Colorectal Cancer Screening Colonoscopy (10 Years) 01/06/2029 [...] PA-C MAMMO Final Resul t * COLOGUARD ([employer]) (10/24/2020 7:30 AM CDT) COLOGUARD RESULT Negative Not Applicable [employer] (CLIA #:[id number]) Comment: A negative result indicates a low [...] screened with both Cologuard and colonoscopy. (Dwayne Palencia et al, N Engl J Med 2014;370(14):7192-1354) The normal value (reference range) for this assay is negative. COLOGUARD RE-SCREENING RECOMMENDATION: Periodic routine colorectal cancer screening is an important part of preventive healthcare for asymptomatic persons at average risk for colorectal cancer. Following a negative Cologuard result, the [place] Cancer Society and U.S. Multi-Society Task Force screening guidelines recommend a Cologuard re-screening interval of 3 years. References: [place] Cancer Society (ACS). Colorectal cancer prevention and early detection. [place], [place]: [place] Cancer Society; [updated 2015Nov 05]. https://www.cancer.org/cancer/cyghu-zbtljd-htyrie/vyttbrkgu-ufnomerbp-gcwhznn/ac s-rec ommendations.html. Accessed March 14, 2018; Thomas DK, Sebastian CR, Noah ZuluagaK, Colorectal Cancer Screening: Recommendations for Physicians and Patients from the U.S. Multi-Society Task Force on Colorectal Cancer Screening, Am J Gastroenterology 2017; 112:2948-9963. TEST TYPE: Composite algorithmic analysis of stool [...] interval of every 3 years by the [place] Cancer Society and U.S. Multi-Society Task Force. [...] can be accessed at the following location: www.[employer].Doostang/results. Additional description of the Cologuard test process, warnings and precautions can be found at www.cologuardtest.com. Rx only. Stool specimen (specimen) STOOL SPECIMEN / Unknown 10/24/2020 7:30 AM CDT 10/25/2020 12:27 PM CDT Marilyn Fuller NP BODY FLUIDS AND STOOLS ORDERABLE S Final Result [employer] ([address]) [address] [place] [address], [employer] (CLIA #:[id number]) [address] [place] [address] * COLONOSCOPY/EGD (01/06/2019) us Documents Scanned SCANNING Edited Result - Final from Last 3 Months or Most Recently Relevant to Health Maintenance Insurance MEDICAID [facility] MEDICARE Advance Directives Documents on File Type Date Recorded Patient Surgery Consultant Expl anation Advance Directives and Living Will 12/08/2019 12:00 AM ADVANCED DIRECTIVES Advance Directives and Living Will 01/06/2019 12:00 AM ADVANCED DIRECTIVES Care Teams Integration Lead Relationship Specialty Start Date End Date Anupama Cuba MD PCP - General FAMILY PRACTICE 08/26/20 Nemesio Antony MD Consulting Physician INTERNAL MEDICINE 01/05/22
--- OUTSIDE RECORDS SUMMARY | 2025-07-14 11:01 | XMS_ITS | Data Portability ---
Author Organization [facility] Address [address] [place] [address] Care Team Providers Care Interlocking Installer Name Role Phone LIZA LEAL Primary Care Provider JEN BROWER OTHER Assessment No assessment recorded. Plan of Treatment Reminders Order Date Submit Date Provider Last Modified By Organization Details Last Modified Time Details Appointments None recorded. Lab None recorded. Referral ENT referral 2019 [facility], 2 [facility], [address], [place], [address], 0 12:32:51 urogynecol ogist referral 2019 [place] Anaid Boggs, [address] , [facility] [address], [place], [address], 0 11:16:05 Procedures None recorded. Surgeries None recorded. Imaging XR, toe(s), 2 or more view 2019 [facility] (Admitting), [facility] [facility] [address], [place], [address], 0 11:20:31 XR, foot, 3 or more view 2019 [facility] (Admitting), [address] [facility] [address], [place], [address], 0 11:20:31 XR, lumbar spine 2019 [facility] (Admitting), [address] [facility] [address], [place], [address], 0 15:25:32 XR, cervical spine 2019 020 [facility] (Admitting), [address] [facility] [address], [place], [address], 0 15:25:32 Medication Orders pilocarpin e 5 mg tablet 2019 020 [facility]armacy #3259, [address] [place], [address], 0 15:27:35 Diflucan 200 mg tablet 2019 020 [facility]acy #3259, [address] [place], [address], 0 10:43:38 fluconazol e 150 mg tablet 2019 020 [facility]FACE [facility] #3259, [address] [place], [address], 0 14:34:22 oxybutynin chloride ER 10 mg tablet,ext ended release 24 hr 2019 020 [facility] [address], [address] [place], [address], 0 14:41:23 cyclobenza niko 10 mg tablet 2019 020 [facility]FACE [facility] [address], [address] [place], [address], 0 16:34:49 betamethas one valerate 0.1 % lotion 2019 020 [facility] [address], [address] [place], [address], 0 16:03:20 betamethas one dipropiona te 0.05 % topical cream 2019 020 [facility] [address], [address] [place], [address], 0 16:33:16 AirDuo RespiClick 113 mcg-14 mcg/actuat ion breath activated 2019 020 [facility] [address], [address] [place], [address], 0 16:28:15 ProAir HFA 90 mcg/actuat ion aerosol inhaler 2019 020 [facility] [address], [address] [place], [address], 0 16:28:11 Patient TargetsNo targets recorded. Patient Instructions Encounter Date Encounter Id Patient Instructions Last Modified By Organization Details Last Modified Time 09/11/2019 [id number] bladder training : care instructions jnanney Not available 09/11/2019 16:36:41 kegel exercises: care instructions jnanney Not available 09/11/2019 16:36:40 Stress Incontinence: Care Instructions jnanney Not available 09/11/2019 16:36:40 psoriasis: care instructions jnanney Not available 09/11/2019 16:33:06 11/12/2019 [id number] vaginal yeast infection: care instructions jnanney Not available 11/12/2019 14:34:20 candidiasis: car e instructions jnanney Not available 11/12/2019 14:34:20 12/31/2019 [id number] candidiasis: car e instructions jnanney Not available 12/31/2019 17:09:45 she will have pharmacy call us for refills.. jnanney Not available 12/31/2019 17:05:53 03/11/2020 [id number] candidiasis: car e instructions jnanney Not available 03/11/2020 15:29:16 Reason for Referral Urogynecologist Referral for Female urinary stress incontinence Referring Physician: Liza Leal, Family [...] Organization Details Recorded Time Low back pain 146985413 Active Harriet Daiglestevan FINA null, [place] - [facility] 6 15:26:30 Pain in toe 117697467 Active Harriet Villegas [place], [place] [facility] 6 15:26:30 Osteomyelit is 42853410 Active Harriet Villegas [place], [place] [facility] 6 15:26:30 Chronic hepatitis 43261824 Completed 09/26/2016 Bryon Smith PA-C Attn: Accountin g,[address] [place], [address], [place] - [facility] 7 11:28:49 Complaining of pelvic pain Active Harriet Villegas [place], [place] [facility] 6 15:26:30 Hyperglycem ia 90420136 Active Harriet DaiglepareshFINA grewal null, [place] [facility] 6 15:26:30 Psoriasis 3348856 Active Liza Leal PA-C Attn: Accountin g,[address] [place], [address], [place] [facility] 6 15:59:19 Chronic depression 650453366 Active Liza Leal PA-C Attn: Accountin g,[address] [facility], [place], [address], [place] [facility] 6 15:59:19 Arthritis 2944641 Active Liza Leal PA-C Attn: Accountin g,[address] [facility], [place], [address], [place] [facility] 6 15:59:19 Dry eyes 265744576 Active Liza Leal PA-C Attn: Accountin g,[address] [facility], [place], [address], [facility] - [facility] 6 15:59:19 Ulcer of mouth 91522740 Active Harriet Villegas MA null, [place] - [facility] 6 15:26:30 History of appendectom y 051866402 Active 2016 Bryon Smith PA-C Attn: Kitty brewer,[address] [facility], [place], [address], [facility] - [facility] 7 11:28:38 Obesity 672035728 Active 2016 Bryon Smith PA-C Attn: Accountpoornima g,[address] [facility], [place], [address], [facility] - [facility] 7 11:28:39 Chronic hepatitis C 120878541 Active 2016 Bryon Smith PA-C Attn: Accountpoornima g,[address] [facility], [place], [address], [facility] - [facility] 7 11:28:42 Problem Notes None recorded. Procedures Surgical History Date Name Laterality Status Provider Name and Address Organization Details Recorded Time 11/07/19 14 Date of Last Pap Smear completed Lisa Brewer MA [facility] 02/10/2015 09:42:37 Appendectomy completed Nilda Carrington MA [facility] 06/04/2014 12:19:16 Tonsillectomy completed Nilda Carrington MA [facility] 06/04/2014 12:19:16 Imaging Results None recorded. Procedure Notes None recorded. Medical Equipment None Reported. Allergies No known drug allergies Medications Name Sig Start Date Stop Date Status Note LastModified by Organization Details LastModified Time ventolin hfa 108 mcg/act aers 01/06 completed Not Available Not Available Not Available nystatin 345674 unit/ml susp 01/06 completed Not Available Not [...] mass index (BMI) Body weight Oxygen saturation Heart rate Systolic And Diastolic Provider Name and Address Organization Details Last Updated DateTime 0 162.56 cm 40.4 kg/m2 008032. 66 g 98 % 63 /min 112/72 mm[Hg] Li Dey MA [facility] 0 16:03:10 Date Recorded Body height Provider Name an d Address Organization Details Last Updated DateTime 03/11/2020 162.56 cm Jackie Brown MA [facility] 03/11 15:18:18 Social History Question Answer Notes LastModified by Organizat ion Details LastModified Time Tobacco Smoking Status Current Every Day Smoker Mily Baez MA null, [facility] 02/05/2020 14:42:06 Do You Have An Advance [...] Skin Problems Y Anemia N Heart Attack (NC) N Anxiety Disorder N Diabetes N Muscle, [...] PF, 30 mcg/0.3 mL dose 1 [facility] [place], [place] [facility] 12/14/2020 09:12:47 COVID-19, mRNA, LNP-S, PF, 30 mcg/0.3 mL dose 1 completed Annika JENNIFFER [place] - [facility] 12/14/2020 09:13:04 Hep B, adult 7 completed Not Available [facility] 08/01/2019 02:45:29 Influenza, split virus, quadrivalent, preservative 7 completed Not Available [facility] 08/01/2019 02:51:06 Influenza, split virus, quadrivalent, preservative 9 completed Not Available [facility] 08/01/2019 02:47:16 Past Encounters Encounter ID Performer Location Encounter Start Date Encounter Closed Date Diagnosis/Indication Diagnosis SNOMED-CT Code Diagnosis ICD10 Code Diagnosis IMO Codes Diagnosis Note [id number] ZURI [address]osto [address] [place] [address] 06/04/2014 12:01:17 06/04/2014 14:49:28 Ulcer of mouth 49329918 [id number] Liza Leal PA-C [place] [address] [place] [address] 09/17/2014 11:27:15 09/17/2014 12:56:57 Low back pain 633975737 Pain in toe 795641471 [id number] Liza Leal PA-C [place] [address] [place] [address] 09/22/2014 14:17:08 09/22/2014 14:53:03 [facility] [id number] MD Polly Leong Women ([facility] [address]) 2 [facility] [address] [place] [address] 02/10/2015 09:24:06 02/10/2015 10:33:18 Gynecologic examination 36544578 [id number] MD Anna Moscoso [facility] [address] [place] [address] 02/24/2015 11:12:12 02/24/2015 11:46:17 Low back pain 742703625 Chronic hepatitis 85277835 [id number] MD Anna Moscoso [facility] [address] [place] [address] 04/13/2015 11:21:16 04/13/2015 12:05:27 Osteomyelitis 46858118 Low back pain 568571062 Chronic hepatitis 34273387 Hyperglycemia 23636379 Psoriasis 3885704 [id number] Enrique Gandhi MD [facility] [address] [place] [address] 04/27/2015 11:15:44 04/27/2015 11:49:36 Chronic hepatitis 01170360 K73.9 [id number] Enrique Gandhi MD [facility] [address] [place] [address] 05/31/2015 18:18:59 05/31/2015 18:35:02 Chronic depression 029846661 F34.1 [id number] Liza Leal PA-C [facility] [address] [place] [address] 03/20/2016 15:19:38 03/20/2016 16:05:46 Chronic depression 468081421 F34.1 Chronic hepatitis 328756 07 K73.9 Arthritis 1922406 M19.90 Psoriasis 1662123 L40.9 Dry eyes 497505029 H04.1 29 [id number] Enrique Gandhi MD [facility] [address] [place] [address] 08/17/2016 14:53:51 08/17/2016 15:52:04 Chronic hepatitis 22616074 B18.2 [id number] Bryon Smith PA-C [facility] [address] [place] [address] 09/26/2016 09:48:01 09/26/2016 12:48:48 Chronic hepatitis C 098329445 B18.2 Genotype 1a 51 y/o C female Dx HCV+ 2004 while attending an inpatient drug rehab program ([place], [place])Risk Factors: +IVDU, +non-profe ssional tattooShe is [...] 1 - 2 months for f/u Obesity 165131758 E66.9 BMI: 39 History of appendectomy 115251269 Z98.890 ~ 8314 [id number] Bryon Smith PA-C [facility] [address] [place] [address] 10/31/2016 09:42:01 11/02/2016 13:05:54 Chronic hepatitis C 919599998 B18.2 Genotype 1a 51 y/o C female Dx HCV+ 2004 while attending an inpatient drug rehab program ([place], [place])Risk Factors: +IVDU, +non-profe ssional tattooShe is [...] of her Fibrosis score and the current [place] HCV Tx formulary restrictio ns.Will initiate the Hep B vaccine series today RTC 12 months Obesity 226355585 E66.9 BMI: 39 History of appendectomy 747854872 Z98.890 ~ 0888 [id number] ZURI Agosto [address] [place] [address] 04/10/2017 10:23:08 04/10/2017 13:38:59 Urinary incontinence 145233500 N39.41 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 Osteoarthritis 765324459 M15.0 Chronic depression 49644 0009 F34.1 Coronary arteriosclerosis 06343384 I25.10 [id number] UZRI Agosto [facility] [address] [place] [address] 05/17/2017 11:09:48 05/17/2017 14:00:55 Female urinary stress incontinence 01702204 N39.3 Hematochezia 932565567 K 92.1 Psoriasis of scalp 70512 8008 L40.9 Obstructiv e sleep apnea syndrome 93569482 G47.33 Acute oste omyelitis of phalanx of toe 406932717 M86.179 Administra tion of influenza vaccine 67281572 Z23 [id number] Jess Cosby, MANAGER MARKETING [employer]-BC [facility] [address] [place] [address] 05/22/2017 13:33:19 06/03/2017 16:33:52 Screening mammography 91794022 Z12.31 Gynecologi c examination 57756172 Z01.800 [id number] Enrique Gandhi MD [facility] [address] [place] [address] 08/02/2017 13:35:46 08/02/2017 16:48:15 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 Acute oste omyelitis of phalanx of toe 270802030 M86.179 Onychomycosis 860365472 B35.1 Psoriasis 1514349 L40.0 Ingrowing toenail 691274 009 L60.0 [id number] Enrique Gandhi MD [facility] [address] [place] [address] 02/20/2018 11:39:04 02/20/2018 12:57:23 Psoriasis of scalp 139949350 L40.9 Chronic depression 26711 0009 F34.1 Edema of l ower extremity 381765428 R60.0 Fecal occu lt blood: positive 838983921 R19.5 Coronary atherosclerosis 634222122 I25.10 [id number] Liza Leal PA-C [facility] [address] [place] [address] 09/09/2018 11:19:05 09/09/2018 12:57:45 Chronic hepatitis C 017104469 B18.2 Chronic depression 22687 0009 F34.1 Hyperglycemia 00722049 R 73.9 Screening for malignant neoplasm of colon 364819789 Z12.11 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 714363735 E06.3 Rheumatoid arthritis 698 24074 M06.394 [id number] Liza Leal PA-C [facility] [address] [place] [address] 11/26/2018 11:49:21 11/26/2018 13:54:38 Screening for malignant neoplasm of colon 781382268 Z12.11 Chronic hepatitis C 1283 59620 B18.2 Prediabetes 196527597 R7 3.03 [id number] Liza Leal PA-C [facility] [address] [place] [address] 03/18/2019 11:52:53 03/18/2019 12:43:22 Pain of joint of ankle and/or foot 081762993 M79.945 [id number] JOHNATHAN Delong 14 OB 4 [facility] [place] [address] 03/26/2019 11:26:27 03/26/2019 15:50:53 Screening mammography 39033022 Z12.31 Importance of yearly mammograms and sbe exam discussed with pt. Mammogram order given, pt verbalized understand ing. Menopausal syndrome 1237 21973 N95.9 1. Discussed hormonal options and otc [...] for annual or sooner if needed. Smoker 49555138 F17.200 smoking cessation reviewed [id number] Liza Leal PA-C [facility] [address] [place] [address] 04/10/2019 10:55:24 04/10/2019 12:20:27 Chronic hepatitis C 256256459 B18.2 Chronic depression 07937 0009 F34.1 Acute bron chitis with bronchospasm 45715064 J20.8 [id number] ZURI Ramirez 14 IM 4 [facility] [address] [place] [address] 04/29/2019 12:12:54 04/29/2019 16:51:16 Chronic hepatitis C 499192018 B18.2 Genotype 1a 51 y/o C female Dx HCV+ 2005 while attending an inpatient drug rehab program ([place], [place])Risk Factors: +IVDU, +non-profe ssional tattooShe is [...] sex acts. RTC next month at the [facility] location. Obesity 390541236 E66.9 BMI: 39.7 History of appendectomy 035693568 Z98.890 ~ 8545 [id number] Bryon Smith PA-C [facility] ([facility] [address] [place] [address] 06/04/2019 12:13:22 06/04/2019 14:19:15 Chronic hepatitis C 322701403 B18.2 Genotype 1a 51 y/o C female Dx HCV+ 2005 while attending an inpatient drug rehab program ([place], [place])Risk Factors: +IVDU, +non-profe ssional tattoFalguni is HCV Tx naive. September 2016:Fibro sure: [...] prescribed by Dr. Theodore Burger at [facility] in [place], [place] for pain. Plan:Have placed a call [...] sign a commitment letter. History of appendectomy 005432721 Z98.890 ~ 1989 Morbid obesity 295123729 E66.01 BMI: 40 [id number] Liza Leal PA-C [facility] [address] [place] [address] 09/11/2019 15:51:28 09/11/2019 16:58:19 Acute bronchitis with bronchospasm 97978482 J20.8 Psoriasis 2515118 L40.0 Urinary incontinence 165 732615 N39.41 Female uri nary stress incontinence 38693350 N39.3 [id number] Liza Leal PA-C [facility] [address] [place] [address] 11/12/2019 09:16:10 11/13/2019 14:50:18 Candidiasis of mouth 04082828 B37.0 [id number] ZURI Agosto [facility] [address] [place] [address] 12/31/2019 09:54:15 01/01/2020 09:02:13 Chronic depression 080921160 F34.1 Candidiasis of mouth 797 62661 B37.0 [id number] ZURI Agosto [facility] [address] [place] [address] 02/05/2020 09:35:03 02/05/2020 14:58:49 Cervical radiculopathy 19818846 M54.12 Lumbar radiculopathy 128 982220 M54.16 [id number] Liza Leal PA-C [facility] [address] [place] [address] 03/11/2020 09:34:15 03/11/2020 15:42:44 Osteomyelitis of ankle AND/OR foot 01856773 M86.8X7 Pain of to e of right foot 5559204733 46259 M79.674 Mucous mem brane dryness 051214746 R68.89 Candidiasis of mouth 797 87689 B37.0 Health Concerns Section Related Observation LastModified by Organization Detai ls LastModified Time None Recorded Concern Status LastModified by Organization Details LastModified Time None Recorded Advance Directives Directive N: Payers Insurance Date Sequence Insurance Name Policy Number Policy Hatch Covered Member ID Hatch Member ID Guarantor Name 03/10/2020 1 [place] Roslyn S Levendoski [id number] Roslyn Shiloendoszoya 09/11/2019 [place] NGS - [facility] - [facility] Roslyn S Shiloendoszoya [id number] Roslyn Levendoszoya 03/10/2020 [place] Roslyn S Levendoski [id number] Roslyn Levendoszoya 04/04/2020 2 [place] WHEN MED[place]ARE OR MEDICARE REPLACEMENT PRIMARY) Roslyn Char [id number] Rsolyn Levendoszoya 03/10/2020 [place] Roslyn S Levendoski [id number] Roslyn Levendoszoya 02/11/2018 1 [facility] PRIOR TO 01/12/2021 (MEDICAID REPLACEMENT - HMO) Roslyn Char [id number] Roslyn Levendoszoya 11/27/2018 2 [place] [facility] Roslyn Pardo [id number] Roslyn Pardo 02/20/2018 1 [facility] PRIOR TO 01/12/2021 (MEDICAID REPLACEMENT - HMO) Roslyn Pardo [id number] Roslyn Pardo Notes Date Note Type Note Provider Name and Address Organization Details Recorded Time 09/11/2019 text/html ROS as noted in the HPI 54 y/o female presents for routine f/u. No complaints. Liza Leal PA-C Attn: Accounting,[address] [place], [address], [facility] 09/11/2019 16:37:33 11/12/2019 text/html ROS as noted in the HPI sore throat feels like thrush...has had it before with advair... Liza Leal PA-C Attn: Accounting,[address] [place], [address], [facility] - [facility] 11/12/2019 14:36:50 12/31/2019 text/html ROS as noted in the HPI her physician left needs refills.. Liza Leal PA-C Attn: Accounting,[address] [place], [address], [facility] 12/31/2019 17:10:04 02/05/2020 text/html ROS as noted in the HPI feet and hands getting numb..feet feel likes blocks of wood..hx of sciatica Liza Leal PA-C Attn: Accounting,[address] [place], [address], [facility] 02/05/2020 14:50:25 03/11/2020 text/html ROS as noted in the HPI pain in great toe ( both feet ) needs xrays...also thrush is returning Liza Leal PA-C Attn: Accounting,[address] [place], [address], [facility] 03/11/2020 15:29:57 OBGyn Episode Ob Episode Information Episode Created Date Number of Fetuses Patient Bloodtype Patient rh Status Prepregnancy Weight lbs Domestic Partner Domestic Partner Phone Father Name Material Clerk Status 05/22/20 17 1 CLOSED Fetus Data First Name Last Name Admitted to NICU Weight (g) Sex Living Outcome Pediatric Complications Fetus ID Race Codes Race Delivery Type [id number] Geoffrey Calculation Initial Geoffrey Date Initial Exam [...] Domestic Partner Domestic Partner Phone Father Name Material Clerk Status 05/22/20 17 1 CLOSED Fetus Data First Name Last Name Admitted to NICU Weight (g) Sex Living Outcome Pediatric Complications Fetus ID Race Codes Race Delivery Type F Full Term [id number] Geoffrey Calculation Initial Geoffrey Date Initial Exam [...] Domestic Partner Domestic Partner Phone Father Name Material Clerk Status 05/22/20 17 1 CLOSED Fetus Data First Name Last Name Admitted to NICU Weight (g) Sex Living Outcome Pediatric Complications Fetus ID Race Codes Race Delivery Type F Full Term [id number] Geoffrey Calculation Initial Geoffrey Date Initial Exam [...] Post Complications Tubal Sterilization Discharge Date Comments 05/06/200 4 Discharge Information Feeding Method Contraceptive Method Maternal HG B and HCT Levels
--- OUTSIDE RECORDS SUMMARY | 2025-07-14 11:01 | XMS_ITS | Encounter Summary ---
Author Organization [facility] Address [facility] [place] [address] Care Team Providers Care Vocational Services Specialist Name Role Phone Anupama Cuba MD Primary Care Provider Unavailab Nemesio Irwin MD Unavailable Nemesio Antony MD Unavailable Encounter Details Date Type Department Care Team (Late st Contact Info) Description 09/26/2020 [facility] [address] [place] [address] Nemesio Antony MD [address] [facility], [address] [place] [address] Social History Tobacco Use Types [...] PM CDT Legal Sex Female 9:52 PM FINISH MOLDER Gender Identity Female 01/28/2025 12:28 PM CDT [...] Rule Out 12/05/2019 12/05/2019 06/05/2021 3:01 PM FINISH MOLDER documented as of this encounter Care Teams Vocational Services Specialist Relationship Specialty Start Date End Date Anupama Cuba MD PCP - General FAMILY PRACTICE 08/26/20 Nemesio Antony MD Vascular/Beater Lead INTERNAL MEDICINE 08/26/20 Nemesio Antony MD Consulting Physician INTERNAL MEDICINE 01/05/22 documented as of this encounter
--- OUTSIDE RECORDS SUMMARY | 2025-07-14 11:01 | XMS_ITS | Patient Health Record ---
Author Organization [facility] Address [address] [place] [address] Care Team Providers Care Agricultural Adviser Name Role Phone Jose Muñoz Primary Care Provider Reason For Referral No Information Medications Medication SIG (Take, Route, Frequency, Duration) Notes Start Date End Date Status raNITIdine HCl 150 MG take 1 tablet (150 MG) by oral route 2 times every day Oral ([facility]) 05/23/2012 Active Ibuprofen 600 MG take 1 tablet (600MG ) by oral route 2 times every day with food Oral ([facility]) 10/26/2011 Active Colcrys 0.6 MG take 2 tablet (1.2MG ) by oral route initially, then take 1 tablet in 1 hour Oral ([facility]) 10/26/2011 Active Betamethasone Dipropionate 0.05 % apply by topical route every day a thin layer to the affected area(s) External ([facility]) 08/02/2011 Active Plan Of Treatment No Information Medical (General) History Surgical History Surgery Date(Month/Year) Appendectomy 1988
[2025-07-14 11:53] LABS: Total Protein Urine Random 16 mg/dL; Ur Ttl Prot Creatinine Ratio 0.23 mg/mg (0-0.20)
[2025-07-14 12:05] LABS: Albumin Level 4.6 g/dL (3.5-5.1); Anion Gap 15 mmol/L (4-12); Blood Urea Nitrogen 12 mg/dL (7-17); Calcium 9.5 mg/dL (8.4-10.2); Carbon Dioxide 26 mmol/L (22-30); Chloride 105 mmol/L (98-107); Estimated Glomerular Filt Rate 44; Glucose 81 mg/dL (65-110); Osmolality Calculated 300 mOsm/kg (285-295); Potassium 3.7 mmol/L (3.4-5.0); Sodium 146 mmol/L (137-145)
== END 2025-07-14 10:44 | disposition home or self-care (01) ==
LOC: CHSLAB 10:47
PROVIDERS: Visit Provider Internal Medicine Nephrology
DX: I12.9 Hypertensive chronic kidney disease with stage 1 through stage 4 chronic kidney disease, or unspecified chronic kidney disease (principal); N18.32 Chronic kidney disease, stage 3b; E55.9 Vitamin D deficiency, unspecified
CPT/HCPCS: 36415; 80069; 82306; 82570; 84156